=== PATIENT | female | born 1975 | race Caucasian/White ===

== ENCOUNTER 2018-02-24 00:25 | Outpatient (CLI) | payer MEDICAID, SELFPAY ==
--- NOTE | 2018-02-24 15:48 | DI.MAMMO_ITS ---
SYMPTOM/DIAGNOSIS: SCREENING, Z12.31 MAMMOGRAMS: Mammograms were interpreted according to the usual protocol including computer analysis with CAD system, tomosynthesis and C view imaging. Comparison is made with prior examinations. Breast density, Category B. No masses or microcalcifications are seen. There is nothing to suggest malignancy. IMPRESSION: Negative mammogram. Routine screening is recommended. Category 1. MQSA ASSESSMENT OF FINDINGS: Negative. Category 1. Patient will receive a letter notifying them of these results. BI-RADS category B. There are scattered areas of fibroglandular density.
== END 2018-02-24 00:45 ==
PROVIDERS: PCP Nurse Practitioner; Visit Provider Nurse Practitioner Family
DX: Z12.31 Encounter for screening mammogram for malignant neoplasm of breast (principal)
CPT/HCPCS: 77063; 77067

== ENCOUNTER 2018-11-01 10:28 | Outpatient (CLI) | payer MEDICAID, SELFPAY ==
[2018-11-01 11:47] LABS: Cholesterol 243 mg/dL (50-200); Glucose 83 mg/dL (70-100); HDL Cholesterol 39 mg/dL (40-60); LDL CHOLESTEROL 159 mg/dL (<100); Triglyceride 177 mg/dL (30-150)
== END 2018-11-01 10:48 ==
PROVIDERS: PCP Nurse Practitioner; Visit Provider Nurse Practitioner Family
DX: Z13.220 Encounter for screening for lipoid disorders (principal); Z13.1 Encounter for screening for diabetes mellitus
CPT/HCPCS: 36415; 80061; 82947; 83721

== ENCOUNTER 2019-01-04 14:22 | Emergency (ER) | payer MEDICAID, SELFPAY ==
[2019-01-04 14:23] VITALS: BP 110/73; PULSE 95; RESP 16; TEMP 37; O2SAT 94
--- NOTE | 2019-01-04 14:31 | DI.RAD_ITS ---
SYMPTOM/DIAGNOSIS: FALL, PAIN POSTERIOR RIGHT ELBOW: Three views. No acute fracture or dislocation is present.
--- NOTE | 2019-01-04 14:31 | ED.GENADUL_ITS ---
Discharge Plan Disposition Patient Disposition: HOME Discharge Details Chief Complaint: Orthopedic Clinical Impression: Contusion of elbow, right, Contusion of knee, left, Left ankle sprain, Abrasion of hand, right, Abrasion of elbow, right, Neck pain, Pericardial effusion, Hypokalemia Primary Care Provider: Laura Hidalgo ED Provider: Cruziot Vela Home Meds and New Rx's Prescriptions: Continued raloxifene [Evista] 60 mg tablet 60 mg PO DAILY Qty: 90 RF: 3 ranitidine HCl 150 mg tablet 150 mg PO BID Qty: 180 RF: 3 baclofen 10 MG tablet 10 mg PO TID RF: 0 topiramate 25 MG tablet 25 mg PO BID RF: 0 albuterol sulfate 2.5 MG/3 ML solution for nebulization 2.5 mg Inhalation PRN PRNRF: 0 meloxicam 7.5 MG tablet 7.5 mg PO DAILY Qty: 30 RF: 11 naproxen sodium [Anaprox DS] 550 MG tablet 550 mg PO BID PRNQty: 30 RF: 11 albuterol sulfate [ProAir HFA] 8.5 GM HFA aerosol inhaler 2 puff Inhalation DAILY Qty: 1 RF: 5 aspirin 325 MG tablet 325 mg PO DAILY RF: 0 cyanocobalamin (vitamin B-12) 1,000 MCG tablet 1,000 mcg PO DAILY RF: 0 hydroxyzine HCl 25 MG tablet 25 - 50 mg PO Q4H PRN PRNQty: 30 RF: 0 naproxen [Naprosyn] 500 MG tablet 500 mg PO BID PRNRF: 0 omeprazole 40 MG capsule,delayed release(DR/EC) 40 mg PO DAILY Qty: 90 RF: 3 valacyclovir [Valtrex] 500 mg tablet 500 mg PO DAILY Qty: 90 RF: 2 atorvastatin 20 mg tablet 20 mg PO QPM Qty: 90 RF: 3 amitriptyline 50 MG tablet 50 mg PO HS RF: 0 calcium carbonate 500 MG tablet,chewable 500 mg CH DAILY RF: 0 multivitamin [Daily Multi-Vitamin] 1 EACH tablet 1 ea PO DAILY RF: 0 Discharge Instructions Instructions: Ankle Sprain (ED), Hypokalemia (ED), Pericardial Effusion (ED), Contusion in Adults (ED), Soft Cervical Collar (ED), Abrasion (ED) Additional Instructions: Please follow-up with your primary care physician. Be sure to discuss final interpretations of radiologic images with your primary care physician. There were incidental findings noted on your imaging including pericardial effusion that should be followed up. Additional diagnostic testing may be necessary. There was no cervical fracture noted on the CT of your neck. However, midline cervical tenderness was noted on exam. Please continue to wear soft cervical collar and avoid rotating or bending your neck or any activities that worsen pain. Follow-up with your doctor next week. If pain persists, you may need additional diagnostic testing. Use Shon wrap for your knee injury and lace up ankle stabilizer for your ankle sprain over the next 1 to 2 weeks. If pain persist in these areas or in your elbow, please discuss with your primary care physician as additional diagnostic testing may be necessary. Please take your naproxen as prescribed. Please take acetaminophen (tylenol) - 650mg every 6 hours by mouth as needed for pain. Return to the emergency department for any worsening or new concerning symptoms. Referrals: Laura Hidalgo NP [Primary Care Provider] - Discharge Data Discharge Date/Time-TO BE ENTERED AT DEPARTURE: 01/04/19 17:59 Medical Decision Making <NAYE Schofield - Last Filed: 01/08/19 07:58> Patient is a 43-year-old female presenting today with chief complaint of trauma during fall. Patient is brought in via EMS. Reports that she fell and landed primarily on the right elbow. Believes that she struck the back of her head. She does not remember the fall, unknown if she lost consciousness. EMS evaluated the patient, at that time, she is only endorsing pain to the right elbow. Did not have any neck pain. However, on my exam the patient was endorsing pain that radiated from the back of her head down the cervical spine. No step-off palpable. A collar was immediately applied. Patient was not moving the neck well prior to my exam. She is also endorsing pain with palpation about the chest. Lungs sounds are clear, normal neurovascular exam. Abdomen is benign although patient continues to wince throughout much of my exam. Primary source of pain is the right elbow. She has notable swelling, ecchymosis and a small abrasion to the olecranon and proximal forearm. She also endorsing severe pain in the right hand although no deformity is noted. Pain is primarily on the dorsal aspect of the hand. Vascular exam is intact. No evidence of trauma to the left upper extremity. Patient is also endorsing pain to the left knee and left ankle. She has a brace in the left ankle. Reports that secondary to her cerebral palsy, she does not have movement in the left lower extremity. States that typically she drags to the left leg with ambulation. No evidence of trauma to the knee. Secondary to the patient's discomfort, unable to range the knee or ankle. Given the patient's level of discomfort, feel that imaging is appropriate. We will obtain his scans of the head, neck, chest, abdomen, pelvis. Will accept x-ray the patient's right elbow, hand and left knee, ankle. Patient reports that she used to abuse narcotics, is requesting that we stay with narcotic medication at this time. Will give Tylenol. I am hoping that after the Tylenol, will be able to examine her further as she is in too much discomfort to the lobe. Patient also endorsing nausea, will give Zofran to help with this. Trauma labs were obtained, significant for elevated liver enzymes which is not unusual for the patient. Her potassium is slightly low at 3.4. We will hold off on p.o. supplementation at this time given the nausea, once this corrected, will replace orally. At the end of my shift, imaging is still pending. Care transition to Dr. Vela with final disposition, reevaluation and imaging pending. <Cruzito Vela MD - Last Filed: 01/05/19 22:09> 16:00 -- Care signed out by NAYE Powell with plan to follow-up on diagnostic i maging and reassess the patient for disposition. Please see NAYE Powell's documentation regarding initial ED presentation and course. Patient noted to have normal screening labs. 17:55 --labs were reviewed and elevated LFTs noted, this appears to be a chronic issue. Hypokalemia, mild, noted. Patient given K-Dur 20 milliequivalents. X-ray of the left ankle was reviewed and interpreted by radiology: Mild soft tissue swelling. Normal bones and joints. No acute fracture. X-ray of the right hand was reviewed and interpreted by radiology: No acute findings. X-ray of the right elbow was reviewed and interpreted by radiology: No acute findings. CT of the head was reviewed and interpreted by radiology: No acute intracranial injury. There is a 3 cm area of encephalomalacia in the posterior right parietal lobe anomaly that is unchanged since 10/18/2017 consistent with old infarct or traumatic injury. CT of the cervical spine interpreted by radiology: No acute findings. CT of the chest reviewed and interpreted by radiology: Small pericardial effusion measuring up to 11 mm in thickness. Mild reversible airspace disease most likely scattered areas of atelectasis. CT of the abdomen and pelvis interpreted by radiology: No acute abnormality. Attempted to clear cervical spine. Patient noted to have midline cervical tenderness. A soft cervical collar was applied. Plan for continued anti- inflammatory over the next few days and follow-up next week. If pain persists, patient may need additional diagnostic imaging of her cervical spine. All diagnostic results were discussed with the patient and her family. I specifically reviewed incidental findings noted including small pericardial effusion and lab abnormalities. Questions were addressed. Patient understands importance of timely outpatient follow-up and that additional diagnostic testing may be necessary. Disposition decision was made weighing the risks and benefits of hospitalization versus outpatient treatment, the risk for further decompensation, and the patient's wishes. The patient was stable and requested discharge. Prior to discharge, my usual and customary return precautions were reviewed with the patient - this included follow-up instructions and reason to return to the emergency department if condition worsens, does not improve as expected, or other new concerns arise. HPI <NAYE Schofield - Last Filed: 01/08/19 07:58> General Mode of arrival: EMS . Date/Time Provider Initiated Documentation: 01/04/19 14:31 . Limitations to Documentation: no limitations . Information obtained by: patient, EMS and RN notes reviewed . History of Present Illness Quality is described as dull, HPI Narrative: Patient is a 43-year-old female, brought in via EMS, with chief complaint of fall. She reports she was a child but since she tripped over a display in [employer] and fell. States the primary pain is in the posterior aspect of the right elbow. Patient is right-hand dominant. Pain radiates into the right hand. Pain with palpation of this area as well. Patient is also endorsing pain in the left knee. States that she struck the back of her head. She is unsure if she lost consciousness, unclear if she hit the back of her head. She initially denied any neck pain or pain endorsed to EMS. However, on arrival, she is endorsing severe neck pain as well as chest pain. She denies any shortness of breath, no recent fevers or chills. Patient does have a history of cerebral palsy and reports that she does not fall frequently. She reports that the left leg is largely immobile and that she typically tracks this leg behind her. Patient reports that she is recovering addict and prefers to stay away from narcotic medications for this reason. Currently endorsing nausea. Related Data Home Medications Medication Instructions Recorded Confirmed baclofen 10 mg PO TID tab-cap 01/29/13 01/04/19 amitriptyline 50 mg PO HS 02/13/13 01/04/19 calcium carbonate 500 mg CH DAILY 02/13/13 01/04/19 multivitamin [Daily Multi-Vitamin] 1 ea PO DAILY 02/13/13 01/04/19 topiramate 25 mg PO BID 08/15/14 01/04/19 albuterol sulfate 2.5 mg INHALATION PRN PRN 04/10/15 01/04/19 meloxicam 7.5 mg PO DAILY #30 tab-cap 07/29/15 01/04/19 albuterol sulfate [ProAir HFA] 2 puff INHALATION DAILY #1 inhaler 02/21/17 01/04/19 aspirin 325 mg PO DAILY tab-cap 02/21/17 01/04/19 cyanocobalamin (vitamin B-12) 1,000 mcg PO DAILY 02/21/17 01/04/19 naproxen sodium [Anaprox DS] 550 mg PO BID PRN #30 tab-cap 02/21/17 01/04/19 hydroxyzine HCl 25 - 50 mg PO Q4H PRN PRN #30 tab 10/27/17 01/04/19 naproxen [Naprosyn] 500 mg PO BID PRN tab-cap 11/08/17 01/04/19 omeprazole 40 mg PO DAILY #90 capsule. 12/05/17 01/04/19 valacyclovir 500 mg tablet 500 mg PO DAILY #90 tab-cap 09/15/18 01/04/19 raloxifene 60 mg tablet 60 mg PO DAILY #90 tab-cap 10/31/18 01/04/19 ranitidine HCl 150 mg tablet 150 mg PO BID #180 tab-cap 10/31/18 01/04/19 atorvastatin 20 mg tablet 20 mg PO QPM #90 tab 11/06/18 01/04/19 Previous Rx's Medication Instructions Recorded omeprazole 40 mg PO DAILY #90 capsule. 12/05/17 valacyclovir 500 mg tablet 500 mg PO DAILY #90 tab-cap 09/15/18 raloxifene 60 mg tablet 60 mg PO DAILY #90 tab-cap 10/31/18 ranitidine HCl 150 mg tablet 150 mg PO BID #180 tab-cap 10/31/18 atorvastatin 20 mg tablet 20 mg PO QPM #90 tab 11/06/18 Allergies Allergy/AdvReac Type Severity Reaction Status Date / Time fluconazole Allergy Severe SEIZURE Verified 01/04/19 14:32 Sulfa (Sulfonamide Allergy Severe SEIZURE Unverified 01/04/19 14:32 Antibiotics) trimethoprim Allergy Intermediate UNKNOWN Unverified 01/04/19 14:32 <Cruzito Vela MD - Last Filed: 01/05/19 22:09> General Information obtained by: patient . Review of Systems <NAYE Schofield - Last Filed: 01/08/19 07:58> Constitutional Reports as per HPI, Denies chills, Denies fatigue, Denies fever(s), Reports headache(s) (reports pain in back of head) and Reports weakness (chronic LLE weakness, associates with CP) Eyes Reports as per HPI, Denies blurry vision, Reports change in vision (chronic, unchanged from fall today) and Denies loss of vision ENT Denies abnormal hearing, Reports headache(s) (reports pain in back of head) and Reports neck pain Cardiovascular Reports as per HPI, Denies chest pain and Denies dyspnea Respiratory Reports as per HPI, Denies cough, Denies pain on inspiration, Denies pain with cough and Denies dyspnea Gastrointestinal Reports as per HPI, Denies abdominal pain, Reports nausea and Denies vomiting Genitourinary Reports as per HPI and Denies urinary incontinence Musculoskeletal Reports as per HPI, Reports abnormal gait (has not ambulated since fall today), Reports deformity (EMS reports deformity to right elbow), Reports limited range of motion (unable to range right elbow at this time), Denies muscle weakness, Reports neck pain, Reports numbness (chronic in left extremities) and Denies radiating pain into limb Integumentary/Breasts Reports as per HPI and Denies rash Neurologic Reports as per HPI, Denies abnormal hearing, Denies abnormal movements, Denies abnormal speech, Reports abnormal gait (has not ambulated since fall today), Reports headache(s) (reports pain in back of head), Denies lack of coordination, Denies focal weakness, Denies loss of vision, Reports numbness (chronic in left extremities), Denies seizure-like activity, Denies paresthesias and Reports weakness (chronic LLE weakness, associates with CP) Endocrine Denies fatigue PFSH <NAYE Schofield - Last Filed: 01/08/19 07:58> Medical History Congenital stroke Depression Endometriosis Gallstones GERD (gastroesophageal reflux disease) Heart burn Hemianopsia Hemiparesis History of alcohol abuse HSV infection Hx of drug abuse Hx of renal calculi Migraine Obstructive sleep apnea on CPAP (Acute) Retinal detachment, left Sleep-related bruxism (Acute) Urinary incontinence Surgical History Cholecystectomy (06/05/17) EGD - MAC (04/18/17) Laparotomy (06/11/17) left hand tendon surgery Oophrectomy, Both renal stent Trigger Finger release (05/13/15) Vaginal hysterectomy Family History Mother Breast cancer COPD (chronic obstructive pulmonary disease) Thyroid disorder Father Heart disease Grandmother Breast cancer Maternal Aunt Breast cancer Social History Smoking/Tobacco Use Status: Never Alcohol Intake: former Drug use: Current Sobriety Substance use type: does not use Caregiver/Support person: No Number of Children: 3 Communication Needs: None Education Level: high school current occupation: Disability Pets and animals: Yes Pets and animals: cat(s) Current gender identity: female What type of physical activity do you participate in: resistance training Frequency: 1-2 times per week Seatbelt use: always Water heater temp set <120 deg: Yes Working smoke detector in home: Yes Fire extinguisher in home: Yes Carbon monox detector in home: Yes Firearms in home: No Do you feel safe at home: Yes Do you feel safe in your relationship?: Yes History History Para 3 Hx # Term Pregnancies Multiple births Hx # Pregnancies Ectopic pregnancies AB induced Hx Number of Living Children AB spontaneous Exam <Tasha Piburn, PA - Last Filed: 01/08/19 07:58> Const General: cooperative, healthy appearing, uncomfortable (patient appears uncomfortable, particularly iwth movement), no acute distress, well developed, well groomed and anxious Nutritional Appearance: well nourished and overweight Orientation: alert, awake and oriented x3 HENMT Head: normal to inspection, no palpable skull fracture, normocephalic and atraumatic Ears: hearing grossly normal bilaterally, external ears normal and TM's normal bilaterally General nose exam: external nose normal Mouth: oral mucosae normal, lip normal and tongue normal Throat: posterior oropharynx normal Eyes General: appearance normal, both eyes and all related structures Visual Wiggins: normal visual wiggins by confrontation Alignment and Position: alignment normal Periorbital: periorbital findings normal Eyelids: eyelids normal Conjunctivae: conjunctivae normal Pupils: PERRL EOM: EOM intact bilaterally Neck Neck: normal visual inspection, full ROM, no lymphadenopathy, no meningeal signs, trachea midline and supple Chest Chest: normal inspection of the chest, no crepitus, no localized rib tenderness and tenderness (with AP compression) Resp Effort & Inspection: normal respiratory effort, able to speak in complete sentences and no respiratory distress Auscultation: clear to auscultation bilaterally, no rales, no rhonchi and no wheezes Cardio Rate: regular rate Rhythm: regular rhythm Heart Sounds: S1 normal and S2 normal GI Inspection: normal to inspection, no abdominal wall ecchymosis, no edema, non- distended and obesity Palpation: soft, no hepatosplenomegaly, not firm, no guarding, no pulsatile masses, not rigid and nontender Auscultation: normal bowel sounds Back/Spine/Pelvis Back: no CVA tenderness Cervical Spine: normal cervical lordosis, cervical ROM normal, collar present (collar applied immediately after this exam as noted to have pain), No cervical spasm, cervical spinal tenderness (Patient has pain with palpation over back of head and into c-spine) and No step off deformity Thoracic/Lumbar Spine: thoracic and lumbar spine normal to inspection, thoraco- lumbar ROM normal, No thoraco-lumbar ROM limited, No thoraco-lumbar spasm and No thoracic spinal tenderness Pelvis: no pain with anterior-posterior compression and no pain with lateral compression Skin Trauma: abrasion (abrasion, swelling and ecchymosis to posterior elbow) Neuro General: alert, awake, oriented x3, gait normal, tone normal and moves all extremities Cranial Nerves: CN's II-XI intact bilaterally Cognition: normal cognition Speech: speech normal Gait: normal gait Motor: tone not normal throughout (patient will not move RUE, left sided weakness which reported chronic) Sensory Exam: sensory deficits noted (chronic sensory deficit noted in left extremities) Extrem General: normal capillary refill, no pedal edema, no calf tenderness and abnormal gait (has not ambulated since fall) Right upper extremity: normal capillary refill, shoulder/upper arm Details: normal to inspection (no pain with plapation), elbow/forearm Details: abnormal to inspection (not willing to range), tenderness (severe pain with any palpation) Location: of the olecranon and of the mid-shaft forearm, swelling (abrasion, ecchymosis ) Location: of the olecranon and of the proximal forearm, abnormal ROM Details: held in an abnormal fashion Details: in flexion (90), abrasion, ecchymosis and distal pulses intact; no unusual warmth, no lacerations, no crepitus, no penetrating wound and no deformity, wrist Details: normal to inspection; no tenderness, no swelling, ROM abnormal (patient will not range, increases pain in elbow) and no unusual warmth and hand Details: normal to inspection, normal capillary refill, neurosensory exam normal and tenderness Location: of the dorsal hand (diffuse discomfort); neuromotor exam abnormal (patient will not move fingers, does small movements but increases pain in elbow), no unusual warmth, no swelling, no abrasions, no lacerations and no crepitus; ROM limited (will not ROM right elbow) Left lower extremity: abnormal to inspection (tenderness to left knee, will not range, brace on left ankle) Psych Appearance: grossly normal and well kempt Mental Status: mental status grossly normal Speech and Movement: speech and movement normal Sign Out <NAYE Schofield - Last Filed: 01/08/19 07:58> Sign Out Data: Sign Out Comment: Care transitioned to Dr. Vela with imaging, reevaluation and disposition pending. Last updated by Tasha Mayer PA at 01/04/19 16:14
--- NOTE | 2019-01-04 14:31 | DI.RAD_ITS ---
SYMPTOM/DIAGNOSIS: FALL LEFT KNEE: Four views. No acute fracture or dislocation is present.
--- NOTE | 2019-01-04 14:31 | DI.RAD_ITS ---
SYMPTOM/DIAGNOSIS: MIGUELINAOSH RIGHT HAND: Three views. No acute fracture or dislocation is present.
--- NOTE | 2019-01-04 14:31 | DI.CT_ITS ---
SYMPTOM/DIAGNOSIS: TRAUMA, PAIN IN CHEST CT CHEST, ABDOMEN AND PELVIS: CT scan of the chest, abdomen and pelvis was performed following intravenous contrast material. There are no priors for comparison. CT ABDOMEN AND PELVIS: There is patient motion artifact which does degrade the image quality There is decreased attenuation of the liver suggesting fatty infiltration. No hepatic mass or laceration is identified. The patient is status post cholecystectomy. There is no biliary ductal dilatation. The portal, superior mesenteric and splenic veins are patent. The pancreas, spleen, adrenal glands, kidneys, ureters and bladder are all unremarkable. The patient appears to be status post hysterectomy. The bowel is unremarkable. The aorta is unremarkable. No significant abdominal or pelvic adenopathy, ascites or pneumoperitoneum is seen. No fracture is identified. IMPRESSION: No acute abdominal or pelvic process. CT CHEST: There is artifact from the patient's right arm positioning and patient motion artifact. Incidental note is made of an aberrant right subclavian artery. The thoracic aorta is intact. Heart size is within normal limits. There is a small pericardial effusion or pleural thickening, measuring 11 mm in maximal thickness. No significant thoracic adenopathy, pleural effusion or pneumothorax is identified. No focal consolidating infiltrates are seen. No fracture is identified. Atelectatic changes are seen in the lungs. IMPRESSION: 1. Small pericardial effusion or pleural thickening 2. No other acute pulmonary process.
--- NOTE | 2019-01-04 14:31 | DI.CT_ITS ---
SYMPTOMS/DIAGNOSIS: TRAUMA, PAIN IN CHEST PRIMARILY CRANIAL CT: A noncontrast enhanced examination was performed. When compared with the previous examination, again noted is a right posterior parietal area of porencephaly. There is no evidence of an intra/extra-axial hemorrhage. There are findings consistent with small vessel disease. The ventricles are normal. There is no evidence of a skull fracture. The paranasal sinuses are intact. There is no mastoid effusion. C-SPINE CT: The vertebral bodies are intact. The disc spaces are well maintained. The posterior elements are unremarkable. The neural canal and neural foramen as visualized appear intact. The odontoid is unremarkable and is closely applied to the anterior arch of C1. The prevertebral soft tissues are unremarkable. SUMMARY: No evidence of a C-spine fracture or subluxation.
[2019-01-04] MEDS: Acetaminophen 500 MG TAB 1000 MG PO (14:38)
[2019-01-04] MEDS: Normal Saline 1,000 ML 1000 ML IV (14:55)
[2019-01-04] MEDS: Ondansetron 4 MG/2 ML VIAL IVP (14:59)
--- NOTE | 2019-01-04 15:08 | DI.RAD_ITS ---
SYMPTOM/DIAGNOSIS: FALL LEFT ANKLE: Three views. No acute fracture or dislocation is seen. There is soft tissue swelling about the ankle. IMPRESSION: Soft tissue swelling about the left ankle.
[2019-01-04 15:11] LABS: Abs Immature Grans 0.01 k/cumm (0.0-0.09); Absolute Basophil Count 0.03 k/cumm (0.0-0.2); Absolute Eosinophil Count 0.14 k/cumm (0.0-0.7); Absolute Lymphocyte Count 2.45 k/cumm (1.2-3.4); Absolute Monocyte Count 0.46 k/cumm (0.11-0.7); Absolute Neutrophil Count 3.69 k/cumm (1.2-6.7); Basophils % 0.4; Eosinophils % 2.1; HCT 40.8 % (36.0-46.0); HGB 14.3 g/dL (12.0-15.5); Immature Grans % 0.1; Lymphocytes % 36.1; Mean Corpuscular Volume 88.5 fL (80-95); Monocytes % 6.8; Neutrophils % 54.5; Platelet Count 205 x1000/uL (130-400); RBC 4.61 m/cumm (4.00-5.20); RBC Distribution Width 12.5 % (11.7-14.6); White Blood Cell Count 6.78 k/cumm (4.4-10.8)
[2019-01-04 15:26] LABS: PTT Activated 21.2 sec (21.0-31.4); Prothrombin Time 10.4 sec (9.3-11.0)
[2019-01-04 15:28] LABS: ALT 109 U/L (12-78); AST 57 U/L (15-37); Albumin 3.6 g/dL (3.4-5.0); Alkaline Phosphatase 136 U/L (46-116); Anion Gap 11.6 mmol/L (3-11); BUN 17 mg/dL (7-18); Bilirubin, Total 0.4 mg/dL (0.2-1.0); CO2 22.4 mmol/L (21.0-32.0); CREATININE 1.02 mg/dL (0.55-1.02); Calcium 9.1 mg/dL (8.5-10.1); Chloride 110 mmol/L (98-107); Estimated GFR 58.87 (mL/min/1.73m2); Glucose 129 mg/dL (70-100); Potassium 3.4 mmol/L (3.5-5.1); Sodium 144 mmol/L (136-145); Total Protein 7.2 g/dL (6.4-8.2)
[2019-01-04] MEDS: Omnipaque 350 MG/ML 100 ML BTL IJ (15:36)
[2019-01-04] MEDS: Normal Saline Flush 10 ML SYR IVP (15:37)
--- NOTE | 2019-01-04 16:20 | DI.VRAD_ITS ---
EXAM: CT Chest With Contrast EXAM DATE/TIME: 01/04/2019 3:49 PM CLINICAL HISTORY: 43 years old, female; Chest pain; Type not specified; Patient HX: Trauma, fall TECHNIQUE: Imaging protocol: Axial computed tomography images of the chest with intravenous contrast. Coronal and sagittal reformatted images were created and reviewed. COMPARISON: No relevant prior studies available. FINDINGS: Lungs: Last opacity in the bases. There is no focal consolidation. Pleural space: Unremarkable. No pneumothorax. No pleural effusion. Heart: A heart is normal for volume. However there is a small pericardial effusion measuring up to 11 mm in thickness. Aorta: Unremarkable. No aortic aneurysm. Lymph nodes: Unremarkable. No enlarged lymph nodes. Bones/joints: Unremarkable. No acute fracture. Soft tissues: Unremarkable. IMPRESSION: 1. Small pericardial effusion. 2. Mild reversible airspace disease most likely scattered areas of atelectasis. EXAM: CT Abdomen and Pelvis With Contrast EXAM DATE/TIME: 01/04/2019 3:49 PM CLINICAL HISTORY: 43 years old, female; Chest pain; Type not specified; Patient HX: Trauma, fall TECHNIQUE: Imaging protocol: Axial computed tomography images of the abdomen and pelvis with intravenous contrast. Coronal and sagittal reformatted images were created and reviewed. COMPARISON: No relevant prior studies available. FINDINGS: Liver: Normal. No mass. Gallbladder and bile ducts: Cholecystectomy. Pancreas: Normal. No ductal dilation. Spleen: Normal. No splenomegaly. Adrenals: Normal. No mass. Kidneys and ureters: Normal. No hydronephrosis. Stomach and bowel: Normal. No obstruction. No mucosal thickening. Appendix: No evidence of appendicitis. Intraperitoneal space: Normal. No free air. No significant fluid collection. Vasculature: Normal. No abdominal aortic aneurysm. Lymph nodes: Normal. No enlarged lymph nodes. Bladder: Unremarkable as visualized. Reproductive: Uterus is been removed. Bones/joints: No acute fracture. No dislocation. Soft tissues: Unremarkable. IMPRESSION: No acute abnormality. Dictated and Authenticated by: Stewart Sprague MD. Ordering:ARABELLA Cordova MD
--- NOTE | 2019-01-04 16:22 | DI.VRAD_ITS ---
EXAM: XR Left Knee EXAM DATE/TIME: 01/04/2019 2:34 PM CLINICAL HISTORY: 43 years old, female; Other: Fall TECHNIQUE: Imaging protocol: XR Left knee. Views: 4 or more views. COMPARISON: No relevant prior studies available. FINDINGS: Bones/joints: Normal. Soft tissues: At most there is a minimal joint effusion.. IMPRESSION: Possible minimal joint effusion Dictated and Authenticated by: Stewart Sprague MD. Ordering:ARABELLA Cordova MD
--- NOTE | 2019-01-04 16:34 | DI.VRAD_ITS ---
EXAM: XR Right Elbow EXAM DATE/TIME: 01/04/2019 2:34 PM CLINICAL HISTORY: 43 years old, female; Other: Fall, pain posterior TECHNIQUE: Imaging protocol: XR Right elbow. Views: 3 or more views. COMPARISON: No relevant prior studies available. FINDINGS: Bones/joints: Normal. Soft tissues: Normal. IMPRESSION: No acute findings. Dictated and Authenticated by: Stewart Sprauge MD. Ordering:ARABELLA Cordova MD
--- NOTE | 2019-01-04 16:34 | DI.VRAD_ITS ---
EXAM: CT Head Without Contrast EXAM DATE/TIME: 01/04/2019 3:42 PM CLINICAL HISTORY: 43 years old, female; Injury or trauma; Initial encounter; Blunt trauma (contusions or hematomas); Patient HX: Trauma, fall TECHNIQUE: Imaging protocol: Computed tomography images of the head without contrast. Coronal and sagittal reformatted images were created and reviewed. COMPARISON: CT HEAD WITHOUT CONTRAST 10/18/2017 3:41 PM FINDINGS: Brain: Cranial is no hemorrhage, mass effect or extra-axial fluid collections. 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 Otherwise the cerebral white matter is within normal limits. Ventricles: The ventricles with her limits. Bones/joints: Unremarkable. No acute fracture. Sinuses: Visualized sinuses are unremarkable. No fluid levels. Mastoid air cells: Visualized mastoid air cells are well aerated. No mastoid effusion. Orbits: Again noted is a left scleral buckle. Soft tissues: Unremarkable. IMPRESSION: No acute intracranial injury. EXAM: CT Cervical Spine Without Contrast EXAM DATE/TIME: 01/04/2019 3:42 PM CLINICAL HISTORY: 43 years old, female; Injury or trauma; Initial encounter; Blunt trauma (contusions or hematomas); Patient HX: Trauma, fall TECHNIQUE: Imaging protocol: Computed tomography images of the cervical spine without contrast. Coronal and sagittal reformatted images were created and reviewed. COMPARISON: CT HEAD WITHOUT CONTRAST 10/18/2017 3:41 PM FINDINGS: Vertebrae: No acute fracture. Normal alignment. Disc spaces are well-preserved. There is no significant osseous stenosis. Soft tissues: Unremarkable. Lungs: Lung apices are normal. IMPRESSION: No acute findings. Dictated and Authenticated by: Stewart Sprague MD. Ordering:ARABELLA Cordova MD
--- NOTE | 2019-01-04 16:35 | DI.VRAD_ITS ---
EXAM: XR Right Hand EXAM DATE/TIME: 01/04/2019 2:34 PM CLINICAL HISTORY: 43 years old, female; Other: Foosh TECHNIQUE: Imaging protocol: XR Right hand. Views: 3 or more views. COMPARISON: No relevant prior studies available. FINDINGS: Bones/joints: Normal. Soft tissues: Normal. IMPRESSION: No acute findings. Dictated and Authenticated by: Stewart Sprague MD. Ordering:ARABELLA Cordova MD
--- NOTE | 2019-01-04 16:36 | DI.VRAD_ITS ---
EXAM: XR Left Ankle EXAM DATE/TIME: 01/04/2019 3:08 PM CLINICAL HISTORY: 43 years old, female; Other: Fall TECHNIQUE: Imaging protocol: XR Left ankle. Views: 3 or more views. COMPARISON: No relevant prior studies available. FINDINGS: Bones/joints: Normal. Soft tissues: There is mild diffuse swelling at the ankle but no acute fracture dislocation or radiopaque foreign body nor gas in the soft tissue IMPRESSION: Mild soft tissue swelling Dictated and Authenticated by: Stewart Sprague MD. Ordering:ARABELLA Cordova MD
[2019-01-04] MEDS: Potassium Chloride 10 MEQ TABCR 20 MEQ PO (17:44)
[2019-01-04 18:00] VITALS: BP 116/68; PULSE 88; RESP 18; O2SAT 94
== END 2019-01-04 17:59 | disposition home or self-care (01) ==
PROVIDERS: Physician Assistant; Emergency Provider Student in an Organized Health Care Education/Training Program; PCP Nurse Practitioner
DX: S93.422A Sprain of deltoid ligament of left ankle, initial encounter (principal); S60.511A Abrasion of right hand, initial encounter; S50.311A Abrasion of right elbow, initial encounter; S50.01XA Contusion of right elbow, initial encounter; S80.02XA Contusion of left knee, initial encounter; I31.3 Pericardial effusion (noninflammatory); W01.0XXA Fall on same level from slipping, tripping and stumbling without subsequent striking against object, initial encounter; M54.2 Cervicalgia
CPT/HCPCS: 29125; 74177; 80053; 96361; 96374; 99285; 70450; 71260; 72125; 73080; 73130; 73564; 73610; 83735; 85025; 85610; 85730; J2405; J3490; L0120; L0172; L1902

== ENCOUNTER 2019-01-23 00:58 | Outpatient (CLI) | payer MEDICAID, SELFPAY ==
--- NOTE | 2019-01-23 10:30 | MERGE_ITS ---
*[facility]* *[facility]* [address] [place] [address] Date of study: 01/23/2019 Transthoracic Echocardiography M-mode, complete 2D, complete spectral Doppler, and color Doppler *STUDY CONCLUSIONS* Summary: 1. Pericardium, extracardiac: A trivial, pericardial effusion was identified posterior to the heart. There was no evidence of hemodynamic compromise. 2. Left ventricle: The cavity size was normal. Wall thickness was normal. Systolic function was normal. The estimated ejection fraction was 60-65%. Wall motion was normal; there were no regional wall motion abnormalities. 3. Right ventricle: The cavity size was normal. Wall thickness was normal. Systolic function was normal. 4. Inferior vena cava: The vessel was patent and normal in size. The respirophasic diameter changes were in the normal range (greater than or equal to 50%). *PATIENT PRESENTATION* Height: 147.3cm (58in ) S/D Pressure: 112 / 65 Weight: 94.3kg (207.6lb ) BSA: 2.03m^2 Test start time: 10:40 AM. Test stop time: 11:30 AM. PERFORMING Unknown PERFORMING [facility] VICE PRESIDENT LENDING RT Ofelia Martinez)(CT), [facility] CONSULTING Laura Hidalgo ORDERING Laura Hidalgo REFERRING Laura Hidalgo *PROCEDURE DATA* Procedure information: The patient was identified by two identifiers. This study was interpreted by [facility]. Pertinent images and digital data are archived for permanent storage and are available for subsequent review. No prior study was available for comparison. Study status: Routine. Transthoracic echocardiography. M-mode, complete 2D, complete spectral Doppler, and color Doppler. A Transthoracic Echocardiogram was performed. Scanning was performed from the parasternal, apical, subcostal, and suprasternal notch acoustic windows. Images were obtained using an [id number] cardiac ultrasound machine. Image quality was adequate. Study completion: The patient tolerated the procedure well. There were no complications. History: PMH: Small pericardial effusion seen on CT i31.1. *CARDIAC ANATOMY* Left ventricle: The cavity size was normal. Wall thickness was normal. Systolic function was normal. The estimated ejection fraction was 60-65%. Wall motion was normal; there were no regional wall motion abnormalities. Diastolic parameters were normal. Aortic valve: Trileaflet; normal thickness leaflets. Mobility was not restricted. Doppler: Transvalvular velocity was within the normal range. There was no stenosis. There was no significant regurgitation. VTI ratio of LVOT to aortic valve: 0.75. Valve area (VTI): 2.1cm^2. Indexed valve area (VTI): 1cm^2/m^2. Peak velocity ratio of LVOT to aortic valve: 0.8. Valve area (Vmax): 2.3cm^2. Indexed valve area (Vmax): 1.1cm^2/m^2. Mean velocity ratio of LVOT to aortic valve: 0.77. Valve area (Vmean): 2.2cm^2. Indexed valve area (Vmean): 1.1cm^2/m^2. Mean gradient (S): 3.3mm Hg. Peak gradient (S): 5.1mm Hg. Aorta: Aortic root: The aortic root was normal in size. Ascending aorta: The ascending aorta was normal in size. Mitral valve: Structurally normal valve. Mobility was not restricted. Doppler: Transvalvular velocity was within the normal range. There was no evidence for stenosis. There was no significant regurgitation. Valve area by pressure half-time: 3.6cm^2. Indexed valve area by pressure half-time: 1.8cm^2/m^2. Peak gradient (D): 3.3mm Hg. Left atrium: The atrium was normal in size. Right ventricle: The cavity size was normal. Wall thickness was normal. Systolic function was normal. Pulmonic valve: Structurally normal valve. Doppler: Transvalvular velocity was within the normal range. There was no evidence for stenosis. There was no significant regurgitation. Peak gradient (S): 2.3mm Hg. Tricuspid valve: Structurally normal valve. Doppler: Transvalvular velocity was within the normal range. There was no evidence for stenosis. There was no significant regurgitation. Pulmonary artery: Pulmonary systolic pressure was within the normal range. Right atrium: The atrium was normal in size. Pericardium: A trivial, pericardial effusion was identified posterior to the heart. There was no evidence of hemodynamic compromise. Systemic veins: Inferior vena cava: Well visualized. The vessel was patent and normal in size. The respirophasic diameter changes were in the normal range (greater than or equal to 50%). Baseline ECG: Normal sinus rhythm. Measurements Left ventricle Value Reference LV ID, ED, PLAX 3.8 cm 3.5 - 6.0 LV ID, ES, PLAX 2.5 cm 2.1 - 4.0 LV PW thickness, ED, PLAX 0.9 cm LV end-diastolic volume, 1-p A2C 71 ml LV ejection fraction, 1-p A2C 56 % LV end-diastolic volume, 1-p A4C 57 ml LV ejection fraction, 1-p A4C 63 % LV e', lateral 0.112 m/sec LV E/e', lateral 8 LV e', medial 0.075 m/sec LV E/e', medial 12 LV e', average 0.094 m/sec LV E/e', average 10 Ventricular septum Value Reference IVS thickness, ED, PLAX 1.1 cm LVOT Value Reference LVOT ID, A-P 1.9 cm LVOT area 2.8 cm^2 LVOT peak velocity, S 0.9 m/sec LVOT mean velocity, S 0.69 m/sec LVOT VTI, S 19.5 cm LVOT peak gradient, S 3.3 mm Hg LVOT mean gradient, S 2 mm Hg Stroke volume (SV), LVOT DP 55 ml Stroke index (SV/bsa), LVOT DP 27 ml/m^2 Aortic valve Value Reference Aortic valve peak velocity, S 1.1 m/sec Aortic valve mean velocity, S 0.9 m/sec Aortic valve VTI, S 26.0 cm Aortic mean gradient, S 3.3 mm Hg Aortic peak gradient, S 5.1 mm Hg VTI ratio, LVOT/AV 0.75 Aortic valve area, VTI 2.1 cm^2 Velocity ratio, peak, LVOT/AV 0.8 Aortic valve area, peak velocity 2.3 cm^2 Velocity ratio, mean, LVOT/AV 0.77 Aortic valve area, mean velocity 2.2 cm^2 Aortic valve area/bsa, mean velocity 1.1 cm^2/m^2 Aorta Value Reference Aortic root ID, ED 2.8 cm Ascending aorta ID, A-P, S 2.7 cm Left atrium Value Reference LA volume/bsa, ES, 1-p A4C 23 ml/m^2 LA volume, ES, 2-p 39 ml LA volume/bsa, ES, 2-p 19 ml/m^2 Mitral valve Value Reference Mitral E-wave peak velocity 0.91 m/sec Mitral A-wave peak velocity 0.61 m/sec Mitral deceleration time 210 ms 150 - 230 Mitral pressure half-time 61 ms Mitral peak gradient, D 3.3 mm Hg Mitral E/A ratio, peak 1.5 Mitral valve area, PHT, DP 3.6 cm^2 Tricuspid valve Value Reference Tricuspid regurg peak velocity 2.1 m/sec Tricuspid peak RV-RA gradient 18.2 mm Hg Right atrium Value Reference RA area, ES, A4C 14.3 cm^2 8.3 - 19.5 Pulmonic valve Value Reference Pulmonic peak gradient, S 2.3 mm Hg Legend: (L) and (H) sabiha values outside specified reference range. I have personally reviewed the images and have reviewed and edited the reported findings. Electronically signed by Shaheen Pope 01/23/2019 12:20
== END 2019-01-23 01:18 ==
PROVIDERS: PCP Nurse Practitioner; Visit Provider Nurse Practitioner
DX: I31.3 Pericardial effusion (noninflammatory) (principal)
CPT/HCPCS: 93306

== ENCOUNTER 2019-03-06 00:46 | Outpatient (CLI) | payer MEDICAID, SELFPAY ==
--- NOTE | 2019-03-06 12:00 | DI.MAMMO_ITS ---
EXAM: MG MAMMO SCREENING CLINICAL HISTORY: screening. TECHNIQUE: Bilateral full field digital CC and MLO mammographic images were obtained with 3D tomosyn thesis and utilizing computer aided detection (CAD). COMPARISON: There are multiple priors with the most recent from 02/24/2018. FINDINGS: Masses/Architectural Distortion: None seen. Microcalcifications: No suspicious pleomorphic-type are seen. IMPRESSION: 1. No significant interval change with no specific features of malignancy noted. 2. Unless there is more urgent need, screening mammography is recommended, as per [place] [employer] guidelines. ACR BI-RAD Category- 1 Negative Breast Density - Category B - Scattered areas of fibroglandular density A negative radiographic report should not delay biopsy if a dominant or clinically suspicious mass is present. Up to ten percent of cancers are not identified on mammography. A negative report may reinforce clinical impression. Adenosis and dense breasts may obscure an underlying neoplasm. False positive reports average 6 to 10%.
== END 2019-03-06 01:06 ==
PROVIDERS: PCP Nurse Practitioner; Visit Provider Nurse Practitioner Family
DX: Z12.31 Encounter for screening mammogram for malignant neoplasm of breast (principal)
CPT/HCPCS: 77063; 77067

== ENCOUNTER 2019-04-13 04:05 | Outpatient (CLI) | payer MEDICAID, SELFPAY ==
--- NOTE | 2019-04-13 12:43 | DI.US_ITS ---
EXAM: US SOFT TISSUE EXTREMITY CLINICAL HISTORY: b/l groin swelling with tenderness, R22.9 TECHNIQUE: Ultrasound performed using standard protocol. Both groin regions were scanned. COMPARISON: No exams were available for comparison FINDINGS: No mass, adenopathy, abscess or edema is seen. IMPRESSION: Negative groin ultrasound.
--- NOTE | 2019-04-13 12:43 | DI.US_ITS ---
EXAM: US SOFT TISSUE HEAD OR NECK CLINICAL HISTORY: left neck, clavicular tenderness and swelling x 3, R22.9 TECHNIQUE: Ultrasound performed using standard protocol. COMPARISON: No exams were available for comparison FINDINGS: The thyroid appears normal. No adenopathy is seen. No soft tissue edema, mass or fluid collection i s seen. IMPRESSION: Negative ultrasound of the neck.
== END 2019-04-13 04:25 ==
PROVIDERS: PCP Nurse Practitioner; Visit Provider Student in an Organized Health Care Education/Training Program
DX: M54.2 Cervicalgia (principal); M25.512 Pain in left shoulder; R22.43 Localized swelling, mass and lump, lower limb, bilateral
CPT/HCPCS: 76536; 76881

== ENCOUNTER 2019-06-01 09:12 | Outpatient (CLI) | payer MEDICAID, SELFPAY ==
[2019-06-01 10:19] LABS: ALT 59 U/L (14-59); AST 28 U/L (15-37); Albumin 3.5 g/dL (3.4-5.0); Alkaline Phosphatase 141 U/L (46-116); Anion Gap 9.9 mmol/L (3-11); BUN 19 mg/dL (7-18); Bilirubin, Total 0.5 mg/dL (0.2-1.0); CO2 27.1 mmol/L (21.0-32.0); Calculated LDL 85 mg/dL; Chloride 105 mmol/L (98-107); Cholesterol 154 mg/dL (<200); Estimated GFR 59.96 (mL/min/1.73m2); Glucose 83 mg/dL (74-106); HDL Cholesterol 49 mg/dL (40-60); Potassium 3.9 mmol/L (3.5-5.1); Sodium 142 mmol/L (136-145); Total Protein 6.7 g/dL (6.4-8.2); Triglyceride 101 mg/dL (<150)
[2019-06-04 11:37] LABS: FSH 102.5 mIU/mL (See Note)
[2019-06-04 16:00] LABS: Estradiol <12 pg/mL (See Note)
== END 2019-06-01 09:32 ==
PROVIDERS: Obstetrics & Gynecology; PCP Nurse Practitioner; Visit Provider Nurse Practitioner
DX: E78.5 Hyperlipidemia, unspecified (principal); F32.9 Major depressive disorder, single episode, unspecified; G47.33 Obstructive sleep apnea (adult) (pediatric); N80.9 Endometriosis, unspecified
CPT/HCPCS: 36415; 80053; 80061; 82670; 83001

== ENCOUNTER 2019-06-13 01:24 | Outpatient (CLI) | payer MEDICAID, SELFPAY ==
--- NOTE | 2019-06-13 08:07 | DI.US_ITS ---
EXAM: US PELVIS TRANSVAGINAL CLINICAL HISTORY: Vaginal bleeding 15 years post hysterectomy,N93.9 TECHNIQUE: Ultrasound performed using standard protocol. Transabdominal and transvaginal exams wer e performed. COMPARISON: CT CHEST/ABD/PEL W from 01/04/2019 FINDINGS: Patient is status post hysterectomy and bilateral oophorectomy. No pelvic mass or fluid collection is seen. The bladder and kidneys are unremarkable. IMPRESSION: No acute abnormality.
== END 2019-06-13 01:44 ==
PROVIDERS: PCP Nurse Practitioner; Visit Provider Obstetrics & Gynecology
DX: N93.9 Abnormal uterine and vaginal bleeding, unspecified (principal); Z90.710 Acquired absence of both cervix and uterus; Z90.722 Acquired absence of ovaries, bilateral
CPT/HCPCS: 76830; 76856

== ENCOUNTER 2019-07-04 13:42 | Emergency (ER) | payer MEDICAID, SELFPAY ==
[2019-07-04 13:48] VITALS: BP 116/65; PULSE 99; RESP 16; TEMP 36.8; O2SAT 93
[2019-07-04 13:55] VITALS: BP 116/65; PULSE 99; O2SAT 91
[2019-07-04 13:56] VITALS: O2SAT 95
[2019-07-04] MEDS: Acetaminophen 500 MG TAB 1000 MG PO (14:31)
--- NOTE | 2019-07-04 14:48 | DI.RAD_ITS ---
EXAM: XR CHEST 2V PA LATERAL CLINICAL HISTORY: cough TECHNIQUE: 2D digital imaging was performed. COMPARISON: LEFT SHOULDER COMPLETE from 04/06/2016 FINDINGS: The cardiac and mediastinal contours have a normal appearance. The lungs are well inflated and clear . No infiltrate, effusion or pneumothorax is seen. No spine or rib fracture is identified. IMPRESSION: Negative chest x-ray.
--- NOTE | 2019-07-04 14:50 | DI.RAD_ITS ---
EXAM: XR KNEE LT 4V AP,LAT,KAREN,PAT INDICATION: pain, fall. COMPARISON: XR knee LT 4V AP,lat,karen,pat from 01/04/2019 TECHNIQUE: 2D digital imaging was performed. FINDINGS: No fracture or joint effusion is seen. The joint spaces are well maintained. IMPRESSION: Negative left knee.
--- NOTE | 2019-07-04 14:55 | DI.RAD_ITS ---
EXAM: XR TIB/FIB LT INDICATION: pain, fall. COMPARISON: XR FEMUR LT from 07/04/2019 TECHNIQUE: 2D digital imaging was performed. FINDINGS: No fracture or dislocation is seen. IMPRESSION: Negative left tibia and fibula
--- NOTE | 2019-07-04 15:02 | DI.RAD_ITS ---
EXAM: XR ANKLE LT COMPLETE INDICATION: pain, fall. COMPARISON: No exams were available for comparison TECHNIQUE: 2D digital imaging was performed. FINDINGS: No fracture or ankle mortise widening is seen. No talar dome defect is present. IMPRESSION: Negative left ankle.
--- NOTE | 2019-07-04 15:08 | DI.RAD_ITS ---
EXAM: XR FEMUR LT INDICATION: PAIN S/P FALL. COMPARISON: No exams were available for comparison TECHNIQUE: 2D digital imaging was performed. FINDINGS: No fracture is identified. There is no evidence of hip dislocation. IMPRESSION: Negative left femur.
--- NOTE | 2019-07-04 15:10 | DI.RAD_ITS ---
EXAM: XR FOOT LT COMPLETE INDICATION: PAIN S/P FALL. COMPARISON: No exams were available for comparison TECHNIQUE: 2D digital imaging was performed. FINDINGS: No fracture or dislocation is seen. IMPRESSION: No acute abnormality.
--- NOTE | 2019-07-04 15:15 | DI.RAD_ITS ---
EXAM: XR PELVIS AP INDICATION: fall, pain. COMPARISON: CT CHEST/ABD/PEL W from 01/04/2019 XR FEMUR LT from 07/04/2019 TECHNIQUE: 2D digital imaging was performed. FINDINGS: No fracture is identified. The hip joints are well maintained obtained. The SI joints are not wide ml. No sacral fracture is visible. IMPRESSION: Negative pelvis.
--- NOTE | 2019-07-04 19:28 | W.ED.GENAD ---
Discharge Plan Disposition Patient Disposition: HOME Condition: Good Discharge Details Chief Complaint: Orthopedic Clinical Impression: Ankle sprain Primary Care Provider: Laura Hidalgo ED Provider: Pastora Javier Home Meds and New Rx's Prescriptions: No Action raloxifene [Evista] 60 mg tablet 60 mg PO DAILY Qty: 90 RF: 3 ranitidine HCl 150 mg tablet 150 mg PO BID Qty: 180 RF: 3 valacyclovir [Valtrex] 500 mg tablet 500 mg PO DAILY Qty: 90 RF: 3 cyclobenzaprine 5 mg tablet 5 mg PO TID PRN (Reason: muscle spasm) Qty: 30 RF: 1 benzonatate [Tessalon Perles] 100 mg capsule 100 mg PO QID PRN (Reason: cough) Qty: 20 RF: 0 baclofen 10 MG tablet 10 mg PO TID RF: 0 topiramate 25 MG tablet 25 mg PO BID RF: 0 meloxicam 7.5 MG tablet 7.5 mg PO DAILY Qty: 30 RF: 11 aspirin 325 MG tablet 325 mg PO DAILY RF: 0 cyanocobalamin (vitamin B-12) 1,000 MCG tablet 1,000 mcg PO DAILY RF: 0 naproxen [Naprosyn] 500 MG tablet 500 mg PO BID PRNRF: 0 atorvastatin 20 mg tablet 20 mg PO QPM Qty: 90 RF: 3 albuterol sulfate [ProAir HFA] 90 mcg/actuation HFA aerosol inhaler 2 puff Inhalation QID PRN (Reason: shortness of breath or wheezing) Qty: 18 RF: 3 omeprazole 40 mg capsule,delayed release(DR/EC) 40 mg PO DAILY Qty: 90 RF: 3 amitriptyline 50 MG tablet 50 mg PO HS RF: 0 calcium carbonate 500 MG tablet,chewable 500 mg CH DAILY RF: 0 multivitamin [Daily Multi-Vitamin] 1 EACH tablet 1 ea PO DAILY RF: 0 Discharge Instructions Instructions: Ankle Sprain (ED) Additional Instructions: Rest. Activities as tolerated. Elevate injury to prevent swelling. Use cane for ambulation Use boot for support Ice to the area of discomfort for 15 min. 3-5 times daily. Motrin every 8 hours with food or Tylenol every 6 hours for soreness if needed over the counter for comfort. Followup with orthopedic doctor as discussed if not improving in one week. Return for any worsening or concerns sooner if needed. Referrals: Layo Kumar MD [ [facility] STAFF PHYSICIAN] - Discharge Data Discharge Date/Time-TO BE ENTERED AT DEPARTURE: 07/04/19 16:58 Medical Decision Making This a pleasant 44-year-old patient presenting to the emergency room after a fall when slipping on tiled rosalie while using tracks on her feet. Patient denies striking head or neck. Reports mild lower back pain which seems to be her baseline. Patient primarily complaining of left ankle pain. Patient denies any other extremity injuries reported. Full range of motion of upper extremities without pain. On exam patient does have tenderness throughout the whole left leg including the hip, femur, knee, mejia, ankle and foot. No obvious deformities or areas of swelling noted. Pulses are intact distally. Patient has no other evident injuries at this time. Reviewed patient's vital signs. Patient's O2 sat noted to be 93 which she reports is somewhat atypical. She did have recent pneumonia but never had follow-up x-ray. Will x-ray patient's chest given mild hypoxia although she has no obvious difficulty breathing shortness of breath or wheezing at this time. She did report her cough did return yesterday but attributes that to possible developing viral illness. Patient consents to Tylenol for pain. X-rays obtained of the lower extremity on the left. No obvious fractures noted of the lower extremity. Discussed bracing. Given patient's limitations to use of crutches. She does feel most comfortable with a walker. Prescription provided for a walker for home. Patient's preference is also to use a walking boot on the injured leg for management of sprain. Boot provided. Encouraged orthopedic follow-up for any persistence of symptoms. Patient feels comfortable with plan of care. Rice encouraged. Encouraged prompt follow-up for any persistence of pain, worsening or alarming symptoms sooner if needed. Insert discharge statement HPI General Date/Time Provider Initiated Documentation: 07/04/19 14:00. HPI Narrative: This a 44-year-old patient with a history of cerebral palsy who is quite pleasant presenting to the emergency room for complaints of a fall. Patient reports she was going to an meeting and she had tracks on her feet to prevent slipping on ice she walked into a tiled floor and slipped landing with her left leg folded beneath her. She reports feeling a pop in her ankle. Patient reports moderate pain in her ankle. Patient denies any other sites of pain or concerns. Denies striking head. Denies loss of consciousness, headache, dizziness. Denies any neck or back pain. Patient does report mild chronic lower back pain seemingly unchanged. Patient denies any upper extremity injuries. Patient primarily concerned with the left ankle. Patient does report mild chronic paresthesia of the lower legs and it is difficult to determine if there is any new numbness, tingling or weakness. Patient denies any open wounds. Arrives via EMS Related Data Home Medications Medication Instructions Recorded Confirmed baclofen 10 mg PO TID tab-cap 01/29/13 07/04/19 amitriptyline 50 mg PO HS 02/13/13 07/04/19 calcium carbonate 500 mg CH DAILY 02/13/13 07/04/19 multivitamin [Daily Multi-Vitamin] 1 ea PO DAILY 02/13/13 07/04/19 topiramate 25 mg PO BID 08/15/14 06/22/19 meloxicam 7.5 mg PO DAILY #30 tab-cap 07/29/15 07/04/19 aspirin 325 mg PO DAILY tab-cap 02/21/17 07/04/19 cyanocobalamin (vitamin B-12) 1,000 mcg PO DAILY 02/21/17 07/04/19 naproxen [Naprosyn] 500 mg PO BID PRN tab-cap 11/08/17 07/04/19 raloxifene 60 mg tablet 60 mg PO DAILY #90 tab-cap 10/31/18 07/04/19 ranitidine HCl 150 mg tablet 150 mg PO BID #180 tab-cap 10/31/18 07/04/19 atorvastatin 20 mg tablet 20 mg PO QPM #90 tab 11/06/18 07/04/19 albuterol sulfate 90 mcg/actuation 2 puff INHALATION QID PRN #18 gm 02/01/19 07/04/19 aerosol inhaler valacyclovir 500 mg tablet 500 mg PO DAILY #90 tab-cap 02/13/19 07/04/19 omeprazole 40 mg capsule,delayed 40 mg PO DAILY #90 capsule. 05/31/19 07/04/19 release cyclobenzaprine 5 mg tablet 5 mg PO TID PRN #30 tab 06/15/19 07/04/19 benzonatate 100 mg capsule 100 mg PO QID PRN #20 cap 06/22/19 07/04/19 Previous Rx's Medication Instructions Recorded raloxifene 60 mg tablet 60 mg PO DAILY #90 tab-cap 10/31/18 ranitidine HCl 150 mg tablet 150 mg PO BID #180 tab-cap 10/31/18 atorvastatin 20 mg tablet 20 mg PO QPM #90 tab 11/06/18 albuterol sulfate 90 mcg/actuation 2 puff INHALATION QID PRN #18 gm 02/01/19 aerosol inhaler valacyclovir 500 mg tablet 500 mg PO DAILY #90 tab-cap 02/13/19 omeprazole 40 mg capsule,delayed 40 mg PO DAILY #90 capsule. 05/31/19 release cyclobenzaprine 5 mg tablet 5 mg PO TID PRN #30 tab 06/15/19 benzonatate 100 mg capsule 100 mg PO QID PRN #20 cap 06/22/19 Allergies Allergy/AdvReac Type Severity Reaction Status Date / Time fluconazole Allergy Severe SEIZURE Verified 07/04/19 14:02 Sulfa (Sulfonamide Allergy Severe SEIZURE Verified 07/04/19 14:02 Antibiotics) trimethoprim Allergy Intermediate UNKNOWN Verified 07/04/19 14:02 General Stated Complaint: Orthopedic JACOB: 4 Review of Systems All systems reviewed & are unremarkable except as noted in HPI and below Constitutional Constitutional: Denies fatigue, Denies headache(s) and Denies malaise Eyes Eyes: Denies blurry vision, Denies change in vision and Denies diplopia ENT Ears, Nose, Mouth, and Throat: Denies headache(s) and Denies neck pain Cardiovascular Cardiovascular: Denies chest pain, Denies dyspnea and Denies dyspnea on exertion Respiratory Respiratory: Denies cough, Denies dyspnea and Denies dyspnea on exertion Gastrointestinal Gastrointestinal: Denies abdominal pain Musculoskeletal Musculoskeletal: Reports abnormal gait (Limping), Reports back pain (Chronic), Denies deformity, Denies joint swelling and Denies neck pain Integumentary/Breasts Skin/Breast: Denies wounds Neurologic Neurologic: Reports abnormal gait (Limping) and Denies headache(s) Endocrine Endocrine: Denies fatigue [facility] Medical History Congenital stroke Depression Elevated cholesterol (Chronic) Endometriosis Gallstones GERD (gastroesophageal reflux disease) Heart burn Hemianopsia left Hemiparesis left History of alcohol abuse HSV infection Hx of drug abuse Hx of renal calculi Migraine Obstructive sleep apnea on CPAP (Acute) Retinal detachment, left Sleep-related bruxism (Acute) Urinary incontinence Social History Smoking/Tobacco Use Status: Former Tobacco Use Alcohol Intake: former Drug use: Current Sobriety Substance use type: does not use Caregiver/Support person: No Number of Children: 3 Communication Needs: None Education Level: high school current occupation: Disability Pets and animals: Yes Pets and animals: cat(s) Current gender identity: female What type of physical activity do you participate in: resistance training Frequency: 1-2 times per week Seatbelt use: always Water heater temp set <120 deg: Yes Working smoke detector in home: Yes Fire extinguisher in home: Yes Carbon monox detector in home: Yes Firearms in home: No Do you feel safe at home: Yes Do you feel safe in your relationship?: Yes Female Reproductive History Menstrual Menopause type: surgical History History 3 Para 3 Hx # Term Pregnancies Multiple births Hx # Pregnancies Ectopic pregnancies AB induced Hx Number of Living Children AB spontaneous Exam Narrative Exam Narrative: CONST: Healthy appearing patient, in no acute distress. Well hydrated. Alert and oriented. HENMT: Head nomocephalic, normal to inspection. Atraumatic. Hearing grossly normal. EYES: General normal appearance. Alignment normal. Eyelids normal. Conjunctiva normal. NECK: Normal visual inspection. FROM. Trachea midline. No Midline tenderness. CHEST: Normal insepection of the chest. No rib pain with palpation RESP: Normal respiratory effort. Speaking full sentences. No cough. No audible wheezing. No retractions. MUSCULOSKELETAL: Normal Gait. FROM of all extremities. Full range of motion of upper extremities. 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 Right leg straight leg raise intact. Limitation to left leg straight leg raise due to pain. Left hip with palpable tenderness. Mild femoral pain with palpation without obvious deformity or swelling. Mild knee pain with palpation throughout without associated effusion. No significant posterior knee pain. No calf pain with palpation. Mild tibial tenderness in the mid tibia. Ankle pain noted overlying the lateral malleolus, medial malleolus tenderness also noted. No obvious rupture of the Achilles tendon on exam. Dorsal foot pain with palpation. Pulses are intact. Sensation is intact. No obvious deformity noted. Right leg exam is benign. SKIN: Normal. Dry. No rashes. NEURO: Alert and awake. Speech clear. PSYCH: Normal affect. Cooperative. Course Vital Signs Vital signs: Vital Signs Temperature 36.8 C 07/04/19 13:48 Pulse 99 H 07/04/19 13:48 Respiratory Rate 16 07/04/19 13:48 Blood Pressure 116/65 07/04/19 13:48 Pulse Oximetry 93 L 07/04/19 13:48 Temperature 36.8 C 07/04/19 13:48 Temperature Source Skin 07/04/19 13:48 Pulse 99 H 07/04/19 13:55 Respiratory Rate 16 07/04/19 13:48 Respiratory Effort Non-Labored 07/04/19 13:48 Blood Pressure 116/65 07/04/19 13:55 Blood Pressure Mean 73 07/04/19 13:55 Blood Pressure Position Supine 07/04/19 13:48 Pulse Oximetry 95 07/04/19 13:56 Oxygen Delivery Method Room Air 07/04/19 13:48 Oxygen Flow Rate 0 07/04/19 13:48 Pain Level 4 07/04/19 17:00
== END 2019-07-04 16:58 | disposition home or self-care (01) ==
PROVIDERS: Emergency Provider Physician Assistant; PCP Nurse Practitioner
DX: S93.402A Sprain of unspecified ligament of left ankle, initial encounter (principal); W01.0XXA Fall on same level from slipping, tripping and stumbling without subsequent striking against object, initial encounter
CPT/HCPCS: 29515; 73552; 99284; 71046; 72170; 73564; 73590; 73610; 73630; 99283; L4361

== ENCOUNTER 2019-07-25 09:49 | Outpatient (CLI) | payer MEDICAID, SELFPAY ==
--- NOTE | 2019-07-25 12:30 | DI.RAD_ITS ---
EXAM: XR CLAVICLE LT CLINICAL HISTORY: BILATERAL CLAVICULAR PAIN AND ? SWELLING M89.8X1 TECHNIQUE: 2D digital imaging was performed. COMPARISON: No exams were available for comparison FINDINGS: BONES: No acute fracture is present. No bony destructive lesion is seen. JOINTS: No dislocation present. SOFT TISSUE: Normal. IMPRESSION: Unremarkable radiographs of the left clavicle.
--- NOTE | 2019-07-25 12:30 | DI.RAD_ITS ---
EXAM: XR CERVICAL SPINE COMP 4-5V CLINICAL HISTORY: PAIN M54.2 CERVICALGIA. TECHNIQUE: 2D digital imaging was performed. COMPARISON: No exams were available for comparison FINDINGS: BONES: No fracture or destructive lesion. Vertebral bodies are unremarkable. DISKS: Intervertebral disc spaces are maintained. ALIGNMENT: Cervical spinal alignment is within normal limits. The odontoid and atlantoaxial articulat ions are normal. SOFT TISSUE: Normal. The lung apices are clear. IMPRESSION: Unremarkable radiographs of the cervical spine.
--- NOTE | 2019-07-25 12:30 | DI.RAD_ITS ---
EXAM: XR CLAVICLE RT CLINICAL HISTORY: PAIN AND ? CLAVICULAR SWELLING M89.8X1 TECHNIQUE: 2D digital imaging was performed. COMPARISON: No exams were available for comparison FINDINGS: BONES: No acute fracture is present. No bony destructive lesion is seen. JOINTS: No dislocation present. SOFT TISSUE: Normal IMPRESSION: Unremarkable radiographs of the right clavicle.
== END 2019-07-25 10:09 ==
PROVIDERS: PCP Nurse Practitioner; Visit Provider Nurse Practitioner
DX: M54.2 Cervicalgia (principal); M89.8X1 Other specified disorders of bone, shoulder
CPT/HCPCS: 72050; 73000

== ENCOUNTER 2019-08-31 09:20 | Emergency (ER) | payer MEDICAID, SELFPAY ==
[2019-08-31] VITALS (15 sets, daily range): BP systolic 97–120; BP diastolic 52–99; PULSE 72–132; RESP 12–25; TEMP 36.3–37; O2SAT 90–97
--- NOTE | 2019-08-31 09:41 | W.ED.GENAD ---
Discharge Plan Disposition Patient Disposition: HOME Condition: Stable Discharge Details Chief Complaint: RespSymp Clinical Impression: URI (upper respiratory infection), Influenza B Primary Care Provider: Laura Hidalgo ED Provider: Renetta Nava Home Meds and New Rx's Prescriptions: New benzonatate [Tessalon Perles] 100 mg capsule 100 mg PO BID-TID PRN (Reason: cough) Qty: 14 RF: 0 oseltamivir [Tamiflu] 75 mg capsule 75 mg PO BID 5 Days Qty: 10 RF: 0 Continued ranitidine HCl 150 mg tablet 150 mg PO BID Qty: 180 RF: 3 valacyclovir [Valtrex] 500 mg tablet 500 mg PO DAILY Qty: 90 RF: 3 baclofen 10 MG tablet 10 mg PO TID RF: 0 topiramate 25 MG tablet 25 mg PO BID RF: 0 meloxicam 7.5 MG tablet 7.5 mg PO DAILY Qty: 30 RF: 11 aspirin 325 MG tablet 325 mg PO DAILY RF: 0 cyanocobalamin (vitamin B-12) 1,000 MCG tablet 1,000 mcg PO DAILY RF: 0 naproxen [Naprosyn] 500 MG tablet 500 mg PO BID PRNRF: 0 atorvastatin 20 mg tablet 20 mg PO QPM Qty: 90 RF: 3 albuterol sulfate [ProAir HFA] 90 mcg/actuation HFA aerosol inhaler 2 puff Inhalation QID PRN (Reason: shortness of breath or wheezing) Qty: 18 RF: 3 omeprazole 40 mg capsule,delayed release(DR/EC) 40 mg PO DAILY Qty: 90 RF: 3 azithromycin [Zithromax Z-Colten] 250 mg tablet See Rx Instructions PO .COMPLEX Qty: 6 RF: 0 amitriptyline 50 MG tablet 50 mg PO HS RF: 0 calcium carbonate 500 MG tablet,chewable 500 mg CH DAILY RF: 0 multivitamin [Daily Multi-Vitamin] 1 EACH tablet 1 ea PO DAILY RF: 0 Discharge Instructions Instructions: Upper Respiratory Infection (ED) Additional Instructions: Follow up with primary care provider in 3-5 days. Return to ED sooner if any worsening or concerns. Increase oral fluids. Take medications as instructed. Continue taking antibiotic and prednisone. At this time your symptoms are very concerning for coronavirus. Due to the increased likelihood of your symptoms being from coronavirus the CDC does recommend testing. It takes 48 to 72 hours for the test results to return. You will be contacted by [facility] staff when your results return. If you do not hear from them in 48 to 72 hours, please contact [facility]. Out of an abundance of precaution it is highly recommended that you self quarantine yourself for a total of 14 days or until symptom-free for greater than 24 to 48 hours. It would be prudent to wear a mask at all times, always wash her hands frequently, and follow-up closely with your primary care provider. It is recommended that you call your primary care provider prior to reassessment. If you are going to a health facility, please call/contact them before you arrive. At this time based on your current symptoms the CDC does not recommend admission, and there is no current clinical indication for your admission here at the hospital. However it is vitally important to monitor your symptoms closely, and if you notice any worsening of your symptoms, or any new symptoms such as worsening shortness of breath, difficulty breathing, persistent fever, worsening chills, chest pain, numbness, weakness, or fainting please call and then return immediately to the emergency department for reevaluation. Please call your primary care provider as soon as possible to make them aware of your current situation and for continued monitoring. As always, it was a pleasure participating in your medical care today. Stand Alone Forms: Work Release Referrals: Laura Hidalgo NP [Primary Care Provider] - Discharge Data Discharge Date/Time-TO BE ENTERED AT DEPARTURE: 08/31/19 12:23 Medical Decision Making 44-year-old female presents with 10 days of upper respiratory type symptoms including cough, fever, throat pain. Patient states that approximately 8 days ago she contacted her PCP who placed her on prednisone and azithromycin which she is still taking. She reports that her symptoms have gotten worse. She reports some loose stools no nausea vomiting. She states that she was in contact with a friend who had recently traveled to [place] and back. At this time work-up ordered including CBC, CMP, flu and Covid swab and chest x-ray. FINDINGS: MEDIASTINUM: Normal. HEART: Normal. PULMONARY VASCULATURE: Normal. LUNGS: Clear. PLEURAL SPACE: No pleural effusion or pneumothorax. BONE:Normal. OTHER FINDINGS:Normal. IMPRESSION: No acute pulmonary findings. Positive Influenza B swab, patient discharged with Tessalon Perles and Tamiflu 75 mg twice daily x5 days. Patient to be discharged home to self isolate at this time, discussed instructions with patient, verbalized understanding. Currently the patient does have a concerning travel history to a high risk area, and/or direct or known indirect exposure to an area and/or patient's with known coronavirus activity. The patient demonstrates some concerning red flags as noted by the CDC for coronavirus including fever, cough, and/or shortness of breath. The patient looks notably clinically well, and does not demonstrate evidence of respiratory distress, significant or severe illness, or sepsis. Per CDC recommendations, coronavirus testing has been performed and is approved by the [facility]. Additionally patient currently does not demonstrate symptoms indicative of admission or further observation here. At this time based on the patient's current clinical picture symptoms are likely secondary to a non-coronavirus viral illness. Out of an abundance of precaution taking into account the current level of national concern, the patient's entire clinical picture, and CDC recommendations, the patient can be discharged home. Per CDC recommendations we will recommend a 14-day quarantine of the patient I have discussed good handwashing techniques, the importance of a mask, and we have also included CDC recommendations for home monitoring and isolation. I have extensively reviewed the treatment plan and discharge instructions with the patient. I have addressed all patient concerns at this time. The patient was made aware of what symptoms to monitor for that would warrant a return to the emergency department. I also discussed the importance of calling the patient's PCP, as well as the ED for any concerns or prior to return. Discussed the plan with the patient, they demonstrate verbal understanding and agreement with our assessment and plan at this time. HPI General Mode of arrival: ambulatory. Date/Time Provider Initiated Documentation: 08/31/19 09:24. Limitations to Documentation: no limitations. Information obtained by: patient. HPI Narrative: 44-year-old female presents with 10 days of upper respiratory type symptoms including cough, fever, throat pain. Patient states that approximately 8 days ago she contacted her PCP who placed her on prednisone and azithromycin which she is still taking. She reports that her symptoms have gotten worse. She reports some loose stools no nausea vomiting. She states that she was in contact with a friend who had recently traveled to [place] and back. Related Data Home Medications Medication Instructions Recorded Confirmed baclofen 10 mg PO TID tab-cap 01/29/13 08/31/19 amitriptyline 50 mg PO HS 02/13/13 08/31/19 calcium carbonate 500 mg CH DAILY 02/13/13 08/31/19 multivitamin [Daily Multi-Vitamin] 1 ea PO DAILY 02/13/13 08/31/19 topiramate 25 mg PO BID 08/15/14 08/31/19 meloxicam 7.5 mg PO DAILY #30 tab-cap 07/29/15 08/31/19 aspirin 325 mg PO DAILY tab-cap 02/21/17 08/31/19 cyanocobalamin (vitamin B-12) 1,000 mcg PO DAILY 02/21/17 08/31/19 naproxen [Naprosyn] 500 mg PO BID PRN tab-cap 11/08/17 08/31/19 ranitidine HCl 150 mg tablet 150 mg PO BID #180 tab-cap 10/31/18 08/31/19 atorvastatin 20 mg tablet 20 mg PO QPM #90 tab 11/06/18 08/31/19 albuterol sulfate 90 mcg/actuation 2 puff INHALATION QID PRN #18 gm 02/01/19 08/31/19 aerosol inhaler valacyclovir 500 mg tablet 500 mg PO DAILY #90 tab-cap 02/13/19 08/31/19 omeprazole 40 mg capsule,delayed 40 mg PO DAILY #90 capsule. 05/31/19 08/31/19 release azithromycin 250 mg tablet See Rx Instructions PO .COMPLEX #6 08/27/19 08/31/19 tab benzonatate [Tessalon Perles] 100 mg PO BID-TID PRN #14 cap 08/31/19 oseltamivir [Tamiflu] 75 mg PO BID 5 Days #10 cap 08/31/19 Previous Rx's Medication Instructions Recorded ranitidine HCl 150 mg tablet 150 mg PO BID #180 tab-cap 10/31/18 atorvastatin 20 mg tablet 20 mg PO QPM #90 tab 11/06/18 albuterol sulfate 90 mcg/actuation 2 puff INHALATION QID PRN #18 gm 02/01/19 aerosol inhaler valacyclovir 500 mg tablet 500 mg PO DAILY #90 tab-cap 02/13/19 omeprazole 40 mg capsule,delayed 40 mg PO DAILY #90 capsule. 05/31/19 release azithromycin 250 mg tablet See Rx Instructions PO .COMPLEX #6 08/27/19 tab benzonatate [Tessalon Perles] 100 mg PO BID-TID PRN #14 cap 08/31/19 oseltamivir [Tamiflu] 75 mg PO BID 5 Days #10 cap 08/31/19 Allergies Allergy/AdvReac Type Severity Reaction Status Date / Time fluconazole Allergy Severe SEIZURE Verified 08/31/19 09:29 Sulfa (Sulfonamide Allergy Severe SEIZURE Verified 08/31/19 09:29 Antibiotics) trimethoprim Allergy Intermediate UNKNOWN Verified 08/31/19 09:29 General Stated Complaint: RespSymp JACOB: 3 Review of Systems Narrative: Constitutional: Negative for weight loss, alert and oriented, well groomed, normal body habitus, appears uncomfortable. HEENT: Denies trauma, headaches, blurry vision, trouble swallowing. Chest: Denies chest pain, palpitations, irregular rhythm, hypertension. Respiratory: Denies hemoptysis. Positive cough, shortness of breath GI: Denies abdominal pain, nausea, vomiting, constipation. Reports mild loose stools. : Denies dysuria, hematuria, flank pain, rectal bleeding. Neuro: Denies dizziness, blurry vision, weakness, syncope, headache or facial numbness. Hematologic: Denies easy bruising, intolerance to heat or cold, hair loss. [facility] Medical History Congenital stroke Depression Elevated cholesterol (Chronic) Endometriosis Gallstones GERD (gastroesophageal reflux disease) Heart burn Hemianopsia left Hemiparesis left History of alcohol abuse HSV infection Hx of drug abuse Hx of renal calculi Migraine Obstructive sleep apnea on CPAP (Acute) Retinal detachment, left Sleep-related bruxism (Acute) Urinary incontinence Surgical History Cholecystectomy (06/05/17) EGD - MAC (04/18/17) Laparotomy (06/11/17) drain placement, biloma left hand tendon surgery Oophrectomy, Both with hyst renal stent Trigger Finger release (05/13/15) L sm finger Dr Gilliam Vaginal hysterectomy 2003 for Endometriosis Family History Mother Breast cancer COPD (chronic obstructive pulmonary disease) Thyroid disorder Father Heart disease Grandmother Breast cancer Paternal Maternal Aunt Breast cancer paternal Social History Smoking/Tobacco Use Status: Former Tobacco Use Alcohol Intake: former Drug use: Current Sobriety Substance use type: does not use Caregiver/Support person: No Number of Children: 3 Communication Needs: None Education Level: high school current occupation: Disability Pets and animals: Yes Pets and animals: cat(s) Current gender identity: female What type of physical activity do you participate in: resistance training Frequency: 1-2 times per week Seatbelt use: always Water heater temp set <120 deg: Yes Working smoke detector in home: Yes Fire extinguisher in home: Yes Carbon monox detector in home: Yes Firearms in home: No Do you feel safe at home: Yes Do you feel safe in your relationship?: Yes Female Reproductive History Menstrual Menopause type: surgical History History 3 Para 3 Hx # Term Pregnancies Multiple births Hx # Pregnancies Ectopic pregnancies AB induced Hx Number of Living Children AB spontaneous Exam Narrative Exam Narrative: Constitutional: Allert and oriented x3. Appears stated age. Head: Normocephalic, no trauma. Eyes: Pupils PERRLA, Red reflex noted, EOM's intact. Eyelids symmetrical withour lesions, discharge, or swelling. ENT: Bilateral TM's WNL, External ear normal to inspection, no mastoid TTP, swelling, or erythema, Nasal turbinates WNL, no nasal discharge. Normal dentition, Posterior pharynx WNL, no exudate. Chest: Tachycardic at approximately 114 normal S1, S2, distal pulses intact. Resp: Lungs coarse bilaterally, no wheezes, rhonchi noted bilaterally. Musculoskeletal: Normal gait, 5/5 strength to all four extremities. Skin: No suspicious rashes or lesions. Capillary refill less than 2 sec. Neurologic: Cranial nerves II-XII intact. Alert and oriented x 3. DTR's intact. Hematologic/Lymphatic: No ecchymosis, no lymphadenopathy. Course Vital Signs Vital signs: Vital Signs Temperature 36.3 C L 08/31/19 09:26 Pulse 105 H 08/31/19 09:26 Respiratory Rate 18 08/31/19 09:26 Blood Pressure 108/71 08/31/19 09:26 Pulse Oximetry 94 L 08/31/19 09:26 Temperature 36.3 C L 08/31/19 09:26 Temperature Source Temporal Artery Scan 08/31/19 09:26 Pulse 105 H 08/31/19 09:26 Respiratory Rate 18 08/31/19 09:26 Respiratory Effort 08/31/19 09:31 Respiratory Depth Normal 08/31/19 09:31 Blood Pressure 108/71 08/31/19 09:26 Blood Pressure Position Sitting 08/31/19 09:26 Pulse Oximetry 94 L 08/31/19 09:26 Oxygen Delivery Method Room Air 08/31/19 09:26 Oxygen Flow Rate 0 08/31/19 09:26
[2019-08-31] MEDS: Normal Saline 1,000 ML 1000 ML IV (09:56)
[2019-08-31 10:02] LABS: Abs Immature Grans 0.06 k/cumm (0.0-0.09); Absolute Basophil Count 0.01 k/cumm (0.0-0.2); Absolute Eosinophil Count 0.04 k/cumm (0.0-0.7); Absolute Lymphocyte Count 2.36 k/cumm (1.2-3.4); Absolute Monocyte Count 0.55 k/cumm (0.11-0.7); Absolute Neutrophil Count 6.34 k/cumm (1.2-6.7); Basophils % 0.1; Eosinophils % 0.4; HCT 43.3 % (36.0-46.0); HGB 14.9 g/dL (12.0-15.5); Immature Grans % 0.6 %; Lymphocytes % 25.2; Mean Corp. HGB Concentration 34.4 g/dL (32.0-36.0); Mean Corpuscular Hemoglobin 30.5 pg (27.0-33.0); Mean Corpuscular Volume 88.7 fL (80-95); Mean Platelet Volume 10.3 fL (8.0-11.0); Monocytes % 5.9; Neutrophils % 67.8; Platelet Count 285 x1000/uL (130-400); RBC 4.88 m/cumm (4.00-5.20); RBC Distribution Width 13.1 % (11.7-14.6); White Blood Cell Count 9.36 k/cumm (4.4-10.8)
[2019-08-31 10:20] LABS: ALT 38 U/L (14-59); AST 15 U/L (15-37); Albumin 3.5 g/dL (3.4-5.0); Alkaline Phosphatase 149 U/L (46-116); Anion Gap 9.1 mmol/L (3-11); BUN 20 mg/dL (7-18); Bilirubin, Total 0.4 mg/dL (0.2-1.0); CO2 25.9 mmol/L (21.0-32.0); CREATININE 0.95 mg/dL (0.55-1.02); Calcium 9.1 mg/dL (8.5-10.1); Chloride 107 mmol/L (98-107); Glucose 98 mg/dL (74-106); Sodium 142 mmol/L (136-145); Total Protein 7.3 g/dL (6.4-8.2)
--- NOTE | 2019-08-31 11:10 | DI.RAD_ITS ---
EXAM: XR PORTABLE CHEST AP CLINICAL HISTORY: Cough, fever TECHNIQUE: 2D digital imaging was performed. COMPARISON: No exams were available for comparison FINDINGS: MEDIASTINUM: Normal. HEART: Normal. PULMONARY VASCULATURE: Normal. LUNGS: Clear. PLEURAL SPACE: No pleural effusion or pneumothorax. BONE:Normal. OTHER FINDINGS:Normal. IMPRESSION: No acute pulmonary findings. DATA REPOSITORY: RADIATION DOSE DELIVERED:
[2019-09-02 14:08] LABS: SARS-CoV-2 RNA Undetected (Undetected); SARS-CoV-2 Specimen Source Nasopharynx
== END 2019-08-31 12:23 | disposition home or self-care (01) ==
LOC: ER 12:20
PROVIDERS: Emergency Provider Registered Nurse Emergency; PCP Nurse Practitioner
DX: J10.1 Influenza due to other identified influenza virus with other respiratory manifestations (principal); Z87.891 Personal history of nicotine dependence
CPT/HCPCS: 36415; 80053; 87449; 96360; 99284; U0003; 71045; 85025

== ENCOUNTER 2020-03-07 04:35 | Outpatient (CLI) | payer MEDICAID, SELFPAY ==
--- NOTE | 2020-03-07 11:12 | DI.MAMMO_ITS ---
EXAM: MAMMO SCREENING CLINICAL HISTORY: screening TECHNIQUE: Mammograms were interpreted according to the usual protocol including computer analysis w [employer] CAD system, tomosynthesis and C-view imaging. COMPARISON: 2010 through 2018 FINDINGS: The breasts are composed of scattered fibroglandular densities, Breast Density category B. No suspicious masses or suspicious microcalcifications are seen. No skin thickening or abnormal axillary lymph nodes are seen. There has been no significant change from prior exams. IMPRESSION: BI-RADS Category 1, Negative mammogram Yearly screening mammography is recommended. Breast Density - Category B, scattered fibroglandular densities. A negative radiographic report should not delay biopsy if a dominant or clinically suspicious mass is present. Up to ten percent of cancers are not identified on mammography. A negative report may reinforce clinical impression. Adenosis and dense breasts may obscure an underlying neoplasm. False positive reports average 6 to 10%. Patient will receive a letter notifying them of these results.
== END 2020-03-07 04:55 ==
PROVIDERS: PCP Nurse Practitioner; Visit Provider Nurse Practitioner Family
DX: Z12.31 Encounter for screening mammogram for malignant neoplasm of breast (principal)
CPT/HCPCS: 77063; 77067

== ENCOUNTER 2020-04-14 11:22 | Outpatient (CLI) | payer MEDICAID, SELFPAY ==
[2020-04-17 16:37] LABS: Patient Race White; SARS-CoV-2 RNA Undetected (Undetected); SARS-CoV-2 Specimen Source Nasal
== END 2020-04-14 11:42 ==
PROVIDERS: PCP Nurse Practitioner; Visit Provider Nurse Practitioner
DX: R05 Cough (principal); R06.02 Shortness of breath; R50.9 Fever, unspecified
CPT/HCPCS: U0003

== ENCOUNTER 2020-06-11 17:47 | Outpatient (CLI) | payer MEDICAID, SELFPAY ==
--- NOTE | 2020-06-11 11:45 | DI.RAD_ITS ---
EXAM: XR ANKLE LT COMPLETE CLINICAL HISTORY: Pain LT ANKLE M25.572 M79.672 PAIN LT FOOT. TECHNIQUE: 2D digital imaging was performed. COMPARISON: CR XR ANKLE LT COMPLETE from 07/04/2019 FINDINGS: There is soft tissue swelling laterally but no evidence of fracture or widening of the mortise. Irais r dome appears unremarkable. No malleolar fractures evident. No obvious tarsal coalition. Bone den sity is age-appropriate. IMPRESSION: DATA REPOSITORY: RADIATION DOSE DELIVERED:
--- NOTE | 2020-06-11 11:45 | DI.RAD_ITS ---
EXAM: XR FOOT LT COMPLETE CLINICAL HISTORY: Pain LT ANKLE M25.572 M79.672 PAIN LT FOOT. TECHNIQUE: 2D digital imaging was performed. COMPARISON: CR XR FOOT LT COMPLETE from 07/04/2019 FINDINGS: There is no evidence of fracture nor diastasis of the Lisfranc joint. Soft tissue selling is again n oted dorsally over the metatarsals but there are no metatarsal fractures evident. Hallux valgus is a gain noted. Great toe metatarsophalangeal joint exhibits minimal if any significant degenerative barrett nge. There are no osseous erosions. Bone density is age appropriate. No significant osseous lesion s nor erosions evident. IMPRESSION: Soft tissue swelling. No obvious fractures evident. Hallux valgus. DATA REPOSITORY: RADIATION DOSE DELIVERED:
== END 2020-06-11 18:07 ==
PROVIDERS: PCP Nurse Practitioner; Visit Provider Nurse Practitioner
DX: M79.89 Other specified soft tissue disorders (principal); M25.572 Pain in left ankle and joints of left foot; M79.672 Pain in left foot
CPT/HCPCS: 73610; 73630

== ENCOUNTER 2020-08-18 03:19 | Outpatient (CLI) | payer MEDICAID, SELFPAY ==
[2020-08-18 12:38] LABS: WBC 6.11 10^3/uL (4.4-10.8)
[2020-08-18 13:10] LABS: C-Reactive Protein 0.16 mg/dL (0.0-0.3); Uric Acid 5.3 mg/dL (2.6-6.0)
[2020-08-18 17:01] LABS: Rheumatoid Factor <8.6 IU/mL (<12.0)
[2020-08-18 18:49] LABS: ESR 9 mm/hr (<or=20)
[2020-08-19 14:01] LABS: ANA Interpretation Negative (Negative)
== END 2020-08-18 03:20 | disposition home or self-care (01) ==
LOC: LBO 03:19
PROVIDERS: PCP Nurse Practitioner; Visit Provider Podiatrist Foot & Ankle Surgery
DX: M19.072 Primary osteoarthritis, left ankle and foot (principal)
CPT/HCPCS: 36415; 85048; 85652; 84550; 86038; 86140; 86431

== ENCOUNTER 2020-10-09 03:34 | Outpatient (CLI) | payer MEDICAID, SELFPAY ==
[2020-10-09 09:50] LABS: HCT 43.4 % (36.0-46.0); HGB 14.6 g/dL (11.2-15.7); MCHC 33.6 % (32.0-36.0); MCV 89.3 fL (80-95); MPV 10.1 fL (8.0-11.0); Platelet Count 237 10^3/uL (130-400); RBC 4.86 10^6/uL (3.93-5.22); RDW 12.4 % (11.7-14.6); RDW-SD 40.1 fL; WBC 7.15 10^3/uL (4.4-10.8)
[2020-10-09 12:06] LABS: ALT 76 U/L (14-59); AST 37 U/L (15-37); Albumin 3.6 g/dL (3.4-5.0); Alkaline Phosphatase 163 U/L (46-116); Anion Gap 7.3 mmol/L (3-11); BUN 17 mg/dL (7-18); Bilirubin, Total 0.4 mg/dL (0.2-1.0); CO2 30.7 mmol/L (21.0-32.0); Calcium 9.4 mg/dL (8.5-10.1); Calculated LDL 68 mg/dL (<100); Chloride 107 mmol/L (98-107); Cholesterol 146 mg/dL (<200); Estimated GFR 59.69 (mL/min/1.73m2); Glucose 97 mg/dL (74-106); HDL Cholesterol 45 mg/dL (40-60); Potassium 4.5 mmol/L (3.5-5.1); Sodium 145 mmol/L (136-145); Total Protein 7.2 g/dL (6.4-8.2); Triglyceride 165 mg/dL (<150)
== END 2020-10-09 03:35 | disposition home or self-care (01) ==
LOC: LBO 03:34
PROVIDERS: PCP Nurse Practitioner; Visit Provider Nurse Practitioner
DX: E78.00 Pure hypercholesterolemia, unspecified (principal); G80.8 Other cerebral palsy
CPT/HCPCS: 36415; 80053; 80061; 85027

== ENCOUNTER 2020-12-17 01:34 | Outpatient (CLI) | payer MEDICAID, SELFPAY ==
--- NOTE | 2020-12-17 08:04 | DI.DEXA_ITS ---
Exam(s) XR DEXA BONE DENSITY W/WO JARED EXAM: XR DEXA BONE DENSITY W/WO JARED CLINICAL HISTORY: F/U OSTEOPOROSIS, M81.0 TECHNIQUE: Routine DEXA evaluation of the lumbar spine, hip, or forearm. COMPARISON: Prior DEXA scan October 2017 FINDINGS: Performed on a [employer] unit. Lateral image: No compression fracture evident. Lumbar Spine total T-score: -3.1 . There is no prior lumbar spine reading available for comparison Hip total T-score:-2.3 . Prior reading October 2017 was -2.1 Independent reading at the left femoral neck yields a T-score of -2.5 Forearm total T-score: -2.0 IMPRESSION: Bone mineral density measures in the osteoporosis range. Fracture risk is high. Note: Any spine fracture indicates 5x risk for subsequent spine fracture and 2x risk for subsequent h ip fracture. World Health Organization criteria for BMD interpretation classify patients: Normal...... T- Score at or above -1.0 Osteopenic... T- Score between -1.0 and -2.5 Osteoporosis... T-Score at or below -2.5
== END 2020-12-17 01:54 ==
PROVIDERS: PCP Nurse Practitioner; Visit Provider Nurse Practitioner
DX: R93.7 Abnormal findings on diagnostic imaging of other parts of musculoskeletal system (principal); M81.0 Age-related osteoporosis without current pathological fracture
CPT/HCPCS: 77080

== ENCOUNTER 2020-12-19 03:23 | Outpatient (CLI) | payer MEDICAID, SELFPAY ==
[2020-12-19 12:30] LABS: ALT 72 U/L (14-59); AST 42 U/L (15-37); Albumin 3.9 g/dL (3.4-5.0); Alkaline Phosphatase 162 U/L (46-116); Bilirubin, Direct 0.2 mg/dL (0.0-0.2); Bilirubin, Total 0.7 mg/dL (0.2-1.0); GGT 81 U/L (5-55); Total Protein 7.2 g/dL (6.4-8.2)
== END 2020-12-19 03:24 | disposition home or self-care (01) ==
LOC: LBO 03:23
PROVIDERS: PCP Nurse Practitioner; Visit Provider Nurse Practitioner
DX: R74.8 Abnormal levels of other serum enzymes (principal); R79.89 Other specified abnormal findings of blood chemistry
CPT/HCPCS: 36415; 80076; 82977

== ENCOUNTER 2021-03-30 00:35 | Outpatient (CLI) | payer MEDICAID, SELFPAY ==
--- NOTE | 2021-03-30 12:41 | DI.MAMMO_ITS ---
Exam(s) MAMMO SCREENING EXAM: MAMMO SCREENING CLINICAL HISTORY: screening. TECHNIQUE: Bilateral full field digital CC and MLO mammographic images were obtained with 3D tomosyn thesis and utilizing computer aided detection (CAD). COMPARISON: Prior mammograms dating back to 2014, the most recent being March 2020. FINDINGS: No new significant radiograph findings in left breast. Towards the lateral aspect of right breast there is an asymmetric density located 6 cm in from the ni pple measuring approximately 10 x 8 millimeters, more evident than on previous studies. Spot sol marie view recommended. There are no malignant-appearing microcalcification groups is region or elsewhere in either breast. There is no significant architectural distortion nor skin thickening-retraction. IMPRESSION: No radiographic evidence of malignancy in the left breast.. Asymmetric density-possible nodule right breast. Spot compression CC view recommended and possible u ltrasound. BI-RADS Category 0 - Assessment Incomplete: Need additional imaging evaluation Breast Density - Category B - Scattered areas of fibroglandular density Breast density Category C or D implies that the patient has dense breast tissue. Dense breast tissue can make it harder to find cancer on a mammogram. Dense breast tissue is also associated with an incr eased risk of breast cancer. This information about the result of the mammogram report was provided to the patient to raise their awareness. Use this report when you speak with the patient about their risks for breast cancer, which includes their family history. At that time, you may recommend additional screening tests (Ultrasoun d or MRI) as these tests may add significant information. A negative radiographic report should not delay biopsy if a dominant or clinically suspicious mass is present. Up to ten percent of cancers are not identified on mammography. A negative report may reinforce clinical impression. Adenosis and dense breasts may obscure an underlying neoplasm. False positive reports average 6 to 10%. Patient will receive a letter notifying them of these results.
== END 2021-03-30 00:55 ==
PROVIDERS: PCP Nurse Practitioner; Visit Provider Nurse Practitioner Family
DX: Z12.31 Encounter for screening mammogram for malignant neoplasm of breast (principal); R92.8 Other abnormal and inconclusive findings on diagnostic imaging of breast
CPT/HCPCS: 77063; 77067

== ENCOUNTER 2021-04-02 02:03 | Outpatient (CLI) | payer MEDICAID, SELFPAY ==
[2021-04-02 14:48] LABS: HCT 43.4 % (36.0-46.0); HGB 14.4 g/dL (11.2-15.7); MCH 30.1 pg (27.0-33.0); MCHC 33.2 % (32.0-36.0); MCV 90.6 fL (80-95); MPV 10.5 fL (8.0-11.0); Platelet Count 240 10^3/uL (130-400); RBC 4.79 10^6/uL (3.93-5.22); RDW 12.1 % (11.7-14.6); WBC 5.98 10^3/uL (4.4-10.8)
[2021-04-02 15:13] LABS: Anion Gap 10.4 mmol/L (3-11); BUN 22 mg/dL (7-18); CO2 26.6 mmol/L (21.0-32.0); CREATININE 0.8 mg/dL (0.55-1.02); Calcium 9.1 mg/dL (8.5-10.1); Chloride 107 mmol/L (98-107); FREE T4 0.79 ng/dL (0.76-1.46); Glucose 82 mg/dL (74-106); Potassium 4.3 mmol/L (3.5-5.1); Sodium 144 mmol/L (136-145); TSH 3.09 uIU/mL (0.36-3.74)
[2021-04-02 15:39] LABS: Vitamin D 25 Total 44.3 ng/mL (30-100)
[2021-04-03 09:28] LABS: Parathyroid Hormone,Intact 88 pg/mL (19-88)
== END 2021-04-02 02:04 | disposition home or self-care (01) ==
LOC: LBO 02:03
PROVIDERS: PCP Nurse Practitioner; Visit Provider Internal Medicine Endocrinology, Diabetes & Metabolism
DX: M81.0 Age-related osteoporosis without current pathological fracture (principal)
CPT/HCPCS: 36415; 80048; 82306; 85027; 83970; 84439; 84443

== ENCOUNTER 2021-04-04 09:50 | Outpatient (REF) | payer MEDICAID, SELFPAY ==
--- OUTSIDE RECORDS SUMMARY | 2021-04-04 09:59 | XMS_ITS | Encounter Summary ---
:1975 Author Care Team Providers Name Role Phone Dr. Laura Hidalgo Primary Care Provider [phone] Dr. Laura Hidalgo Referring Provider [phone] Reason for Visit 6 week f/u Assessment and Plan 1. Deep peroneal nerve lesion Plan: Recommendations were giv en at this time to apply 5% lidocaine patches 12 hours a day on the dorsal area on the right foot over the deep peroneal nerve. The area of application was marked with a pe rmanent marker. Recommendations were given to this patient to return to clinic in 4 we eks and if there is no specific improvement I will discussed neuroplasty of the deep p eroneal nerve. ? lidocaine 5 % topical patc h 2. Injury of cutaneous sensory n erve at ankle and foot level 3. Peripheral nerve entrapment s yndrome 4. Pain in left foot Discussion Note: None recorded.Patient educational handouts: No information available. Plan of Care Reminders Provider Appointments Surgical Or 1 Procedure 60 04/15/2021 7:30AM ? Surgical Ferdinand Alvarez, Procedure 60 04/15/2021 DPM 7:30AM Lab None ? ? recorded. Referral None ? ? recorded. Procedures None ? ? recorded. Surgeries None ? ? recorded. Imaging None ? ? recorded. Medications Name Start Date ? ? albuterol sulfate HFA 90 mcg/actuation aerosol inhaler 10/15/2020 Inhale 2 puffs every 4 hours by inhalation route as n eeded. amitriptyline 50 mg tablet ? TAKE ONE TABLET BY MOUTH EVERY EVENING Antacid (calcium carbonate) 200 mg calcium (500 mg) ch ewable tablet 10/15/2020 Take 1 tablet every day by oral route. atorvastatin 20 mg tablet ? TAKE 1 TABLET BY MOUTH EVERY EVENING azithromycin 250 mg tablet 10/15/2020 baclofen 10 mg tablet ? TAKE 1 TABLET BY MOUTH THREE TIMES DAILY estradiol 0.01% (0.1 mg/gram) vaginal cream ? INSERT 1 GRAM VAGINALLY ONCE DAILY FOR 2 WEEKS THEN T WICE WEEKLY fluticasone propionate 50 mcg/actuation nasal spray,[place]field spension ? SHAKE LIQUID AND USE 2 SPRAYS IN EACH NOSTRIL DAILY melatonin 10 mg capsule 10/15/2020 once a day at hs melatonin 10 mg sublingual tablet ? TAKE 1 TABLET BY MOUTH AT BEDTIME NEEDED FOR SLEEP meloxicam 7.5 mg tablet ? TAKE 1 TABLET BY MOUTH DAILY multivitamin 10/15/2020 omeprazole 40 mg capsule,delayed release ? TAKE 1 CAPSULE BY MOUTH DAILY rizatriptan 10 mg tablet ? TAKE 1 TABLET BY MOUTH TWICE DAILY NEEDED topiramate 25 mg tablet ? TAKE 1 TABLET BY MOUTH TWICE DAILY valacyclovir 500 mg tablet ? TAKE 1 TABLET BY MOUTH DAILY Medications Administered None recorded. Vitals Height 4 ft 10 in Results Lab Results None recorded. Allergies Code Code System Name Reaction Severity Onset 4450 RxNorm Fluconazole ? ? ? Sulfa (Sulfonamide ? ? ? Antibiotics) 73741 RxNorm Trimethoprim ? ? ? Problems Name Status Onset Date Source ? Herpes Simplex Active 08/12/2020 ? Hypercholesterolemia Active 08/12/2020 ? History of Drug Abuse Active 08/12/2020 ? Depressive Disorder Active 08/12/2020 ? Obstructive Sleep Apnea Syndrome Active 08/12/2020 ? Sleep Related Bruxism Active 08/12/2020 ? Hemiparesis Active 08/12/2020 ? Cerebral Palsy Active 08/12/2020 ? Migraine Active 08/12/2020 ? Retinal Detachment Active 08/12/2020 ? Hemianopia Active 08/12/2020 ? Cerebrovascular Accident Active 08/12/2020 ? Asthma Active 08/12/2020 ? Gastroesophageal Reflux Disease Active 08/12/2020 ? Gallstone Active 08/12/2020 ? Kidney Stone Active 08/12/2020 ? Endometriosis (Clinical) Active 08/12/2020 ? Foot Callus Active 08/12/2020 ? Osteoporosis Active 08/12/2020 ? Urinary Incontinence Active 08/12/2020 ? Falls Active 08/12/2020 ? History of Alcohol Abuse Active 08/12/2020 ? Pain in Left Foot Active 08/12/2020 ? Pain of Left Ankle Joint Active 08/12/2020 ? Swelling of Bilateral Lower Limbs Active 08/12/2020 ? Equinus Contracture of the Ankle Active 09/03/2020 ? Tightness of Left Gastrocnemius Muscle Active ? 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 Deep Peroneal Nerve Lesion Active 01/12/2021 ? Peripheral Nerve Entrapment Syndrome Active 01/12/2021 ? Injury of Cutaneous Sensory Nerve at Ankle Active 01/12 ? and Foot Level Procedures Date Name Performed by ? 10/15/2020 Excision, Lesion of Tendon Sheath or Inf ormation not available Capsule, Leg/ankle (Surg) 06/06/2017 Laparotomy Information not avai lable 06/06/2016 Cholecystectomy Information not avai lable 06/06/2014 Release of Trigger Finger Information no t available Notes: left hand 06/06/2003 Hysterectomy Information not avai lable ? Insertion of Renal Artery Stent Informat ion not available ? Oophorectomy Information not avai lable Notes: bilat ? Hand Surgery Information not avai lable Notes: left hand Notes: Achilles tendon lengtheni ng left leg 11 years ago kidney stone removal retinal detachment left eye Vaccine List Vaccine Type COVID-19, mRNA, LNP-S, PF, 100 mcg/0.5 m L dose 08/31/2020?0.5 mL 09/28/2020?0.5 mL Social History Tobacco Smoking Status Former Smoker What is your level of alcohol None Notes: sober 18 years consumption? Have you travelled outside of [facility] in the past 14 days? Have you received the covid vaccine Y this year? (If so, document vaccination in Vaccine Module in [place]) Have you experienced any of the N following symptoms in the past 48 hours? Fever/Chills, Cough, Shortness of breath or difficulty breathing, fatigue, muscle or body aches, headache, new loss of taste or smell, sore throat, congestion or runny nose, nausea or vomiting and/or diarrhea Are you able to care for yourself? Y Are you currently waiting on results N of a COVID-19 test? What is your code status? 0 Within the past 14 days, have you been N in close physical contact (6 feet or closer for a cumulative total of 15 minutes) with anyone that is known to have laboratory-confirmed COVID-19? OR Anyone who has any symptoms consistent with COVID-19? Are you isolating or quarantining N because you may have been exposed to a person with COVID-19 or are worried that you may be sick with COVID-19? What was the date of your most recent 03/26/2021 tobacco screening? Do you have an advanced directive? Y Do you use any illicit or recreational N drugs? How many years have you smoked 3 Notes: a pack a day,quit 12 tobacco? years ago Functional Status Unknown. Past Encounters 02/24/2021 Deep Peroneal Nerve Lesion; Injury of Cu taneous Sensory Nerve at Ankle and Foot Level; Peripheral Nerve Entrapment Syndrome; Pain in Left Foot Ferdinand Alvarez, DPM: [address] [place] [address], Ph. History of Present Illness None recorded. Review of Systems ? Podiatry ROS Reported By: Patient Constitutional: Constitutional: no fever, no night sweats, no significant weight loss Integumentary: Skin: No itching (pruritus), No skin lesions, no abnormal mole, no jaundice, No rednes s (erythema), no rash, No bruising, No laceration, No insect bites Musculoskeletal: Musculoskeletal: Not related to trauma or previous injury, arthralgias/joint pain, swel ling in the extremities, joint swelling, muscle weakness, G ait Abnormality Neurologic: Neurologic: no loss of consc iousness, no numbness, no seizures, no dizziness, no h eadaches, no tremor, no shooting pain, no paresthesia's, no t Ingling, muscle weakness Hematologic/Lymphatic: Hematologic/Lymphatic no swo llen glands, no bruising, no excessive bleeding, no exces sive bleeding Allergic/Immunologic: Allergy/Immunologic: no seas onal allergies Notes: Yuli was seen for follow-u p for left foot pain. She currently is very happy util izing the Sony brace on the left ankle and foot. She has elaien re neuropathic pain on the dorsal surface of the left foot lisette t is mediated by deep peroneal nerve injury. The 4% lidocai ne with Aspercreme is provided no symptomatic relief to her do rsal left foot pain. Physical Exam ? Notes: Constitutional: well develop ed, appears stated age, well nourished, no acute distress, alert and oriented to time, place and person, weight-overweight

Psy chiatric: Mental status-mood and affect normal, behavior normal,cognition an d thought content normal, fund of knowledge is intact, attention span and a bility to concentrate is normal, able to articulate well with normal speech and language

Respiratory: Quiet and easy respiratory effort, momo st-symmetrical expansion, no respiratory distress, no adventitious sounds, no s hortness of breath, respiration rate of 14

Vascular:
D orsalis pedis and posterior tibial pulses are full and palpable bilaterally. Th e feet are warm to touch with 1-2 second vascular filling time at the digit le vels. Digital hair is present bilaterally. No venous varicosities are note d on the lower legs, ankles or feet. No ischemia is noted within the legs or pedal structures.

Dermatologic: There is no evidence of any breaks in sk in integrity or skin lesions on the lower legs, ankles or feet. There is nor mal skin texture and turgor on all extremities surfaces. There is no eviden ce of cellulitic or lymphangitic activities on the digits, feet, ankles or lowe r legs.

Neurologic: Alert and oriented times 3, concentrating abili ty not decreased, symmetrical bulk, strength and tone in the lower extremitie s, coordination is normal.
Sensory examination-positive provoca tion with strong distal Tinel's sign to the distal end of the hallux and second toe on the left foot and percussion of the deep peroneal nerve on the dorsal tarsal joints of the left foot at the area of compression. No pain is medi ated along the tibial nerve system in the plantar foot and there is no evidenc e of intermetatarsal neuroma formation.
Motor examination-anterior extenso r paralysis left leg with dropfoot deformity, no dorsiflexion available due t o extensor muscle paralysis left leg. Flexor muscles are weakened but fun ctioning in the left leg, quadriceps and hamstrings function normally in the left lower extremity.

Musculoske letal: Continue tightness in the gastroc soleus muscle group on the left leg although this has improved. Heel pain is still present although is improved over her preoperative state. The patient continues to stretch on a da rodrigo basis.

Gait: Mildly antalgic left foot gait pattern<div>
Th is clinic note/operative note was created using [employer] software. The note was reviewed by myself for primary content. There m ay be multiple small syntactical discrepancies and errors due to the voice anna gnition limitations of the software-Dr. Alvarez.
</div>
--- OUTSIDE RECORDS SUMMARY | 2021-04-04 09:59 | XMS_ITS ---
:1975 Author Care Team Providers Name Role Phone DR. CAROLYN MAC Primary Care Provider [phone] DR. CAROLYN MAC Referring Provider [phone] Allergies Code Code System Name Reaction Severity Status Onset 4450 RxNorm Fluconazole ? ? Active ? Sulfa ? ? Active ? (Sulfonamide Antibiotics) 36863 RxNorm Trimethoprim ? ? Active ? Medications Name Status Start Date Stop Date ? ? albuterol sulfate HFA 90 mcg/actuation aerosol inhaler Active 10/15/2020 Not available Inhale 2 puffs every 4 hours by inhalation route as needed. amitriptyline 50 mg tablet Active ? Not a vailable TAKE ONE TABLET BY MOUTH EVERY EVENING Antacid (calcium carbonate) 200 mg calcium (500 mg) chewable tablet Active 10/15/2020 Not available Take 1 tablet every day by oral route. aspirin 325 mg tablet Completed 10/15/2020 03/26/2021 Take 1 tablet every day by oral route. atorvastatin 20 mg tablet Active ? Not av ailable TAKE 1 TABLET BY MOUTH EVERY EVENING azithromycin 250 mg tablet Active 10/15/2020 Not a vailable baclofen 10 mg tablet Active ? Not availa ble TAKE 1 TABLET BY MOUTH THREE TIMES DAILY benzonatate 100 mg capsule Completed 10/15/202002/24 TK 1 C PO TWO TO THREE TIMES DAILY PRF COGUH cyanocobalamin (vitamin B-12) 1,000 mcg capsule Completed ? 08/13/2020 Take 1 capsule every day by oral route. cyclobenzaprine 5 mg tablet Completed 10/15/202002/05 TK 1 T PO TID PRF MUSCLE SPASM estradiol 0.01% (0.1 mg/gram) vaginal cream Active ? Not available INSERT 1 GRAM VAGINALLY ONCE DAILY FOR 2 WEEKS THEN TWICE WEEKL Y famotidine 20 mg tablet Completed ? 09/04/19 21 TK 1 T PO BID fluticasone propionate 50 Active ? Not av ailable mcg/actuation nasal spray,suspension hydroxyzine HCl 25 mg tablet Completed ? 03/2021 Take 1 tablet twice a day by oral route. Lidoderm 5 % topical patch Completed ? 03/26 loratadine 10 mg tablet Completed ? 09/04/19 Take 1 tablet every day by oral route. melatonin 10 mg capsule Active 10/15/2020 Not avai lable once a day at hs melatonin 10 mg sublingual tablet Active ? Not available TAKE 1 TABLET BY MOUTH AT BEDTIME NEEDED FOR SLEEP meloxicam 7.5 mg tablet Active ? Not avai lable TAKE 1 TABLET BY MOUTH DAILY methylprednisolone 4 mg tablets in a dose pack Completed ? 09/03/2020 FPD multivitamin Active 10/15/2020 Not available naproxen 500 mg tablet Completed ? Take 1 tablet twice a day by oral route as needed. omeprazole 40 mg capsule,delayed release Active ? Not available TAKE 1 CAPSULE BY MOUTH DAILY oseltamivir 75 mg capsule Completed 10/15/20202020 TK 1 C PO BID FOR 5 DAYS oxycodone-acetaminophen 5 mg-325 mg tablet Completed ? 11/12/2020 TAKE 1 TABLET BY MOUTH EVERY 6 HOURS FOR 5 DAYS rizatriptan 10 mg tablet Active ? Not francisco j ilable TAKE 1 TABLET BY MOUTH TWICE DAILY NEEDED topiramate 25 mg tablet Active ? Not avai lable valacyclovir 500 mg tablet Active ? Not a vailable TAKE 1 TABLET BY MOUTH DAILY Problems Name Status Onset Date Source ? [...] Information not avai lable Notes: left hand 08/11/2020 XR, Foot, 3 or More View [facility] - Radiology [address] [place], [place] [id number] (Work Place) 08/12/2020 XR, Ankle, [address] [facility] - Radiology [address] [place] [address] (Work Place) Notes: Achilles tendon lengtheni ng left leg 11 years ago kidney stone removal retinal detachment left eye Results Lab Results Date Name Specimen Result Interpretation Description Value Range Status Address ? 08/18/2020 ESR (Erythrocyte ? No observation ? ? ? [facility] recorded. [place] Rate), Blood [facility]: [address] [place] [address] D , [place] [facility] 08/18/2020 Uric Acid, Serum ? No observation ? ? ? [facility] or Plasma recorded. [facility]: [address], [facility] 08/18/2020 C-reactive ? No observation ? ? ? [facility] Protein, recorded. Josephine nayeli [facility]: [facility] D r, [facility] Past Encounters 03/26/2021 Deep Peroneal Nerve Lesion; Injury of Cu taneous Sensory Nerve at Ankle and Foot Level; Peripheral Nerve Entrapment Syndrome; Pain in Left Foot MAKAYLA BurroughsM: [address] [place] [phone], Ph. 02/24/2021 Deep Peroneal Nerve Lesion; Injury of Cu taneous Sensory Nerve at Ankle and Foot Level; Peripheral Nerve Entrapment Syndrome; Pain in Left Foot Ferdinand Alvarez DPM: [address] [place] [phone], Ph. 01/12/2021 Deep Peroneal Nerve Lesion; Injury of Cu taneous Sensory Nerve at Ankle and Foot Level; Peripheral Nerve Entrapment Syndrome; Pain in Left Foot Ferdinand Alvarez DPM: [address] [place] [phone], Ph. 11/12/2020 Pain of Left Ankle Joint; Edema of Foot Ferdinand Alvarez DPM: [address] [place] [phone], Ph. 10/29/2020 Equinus Contracture of the Ankle Ferdinand Alvarez DPM: [address] [place] [phone], Ph. 09/23/2020 Equinus Contracture of the Ankle; Hemipa resis; Insertional Achilles Tendinopathy; Pain in Left Foot; Tightness of Left Gastrocnemius Muscle Ferdinand Alvarez DPM: [address] [place] [phone], Ph. 09/03/2020 Pain in Left Foot; Insertional Achilles Tendinopathy; Equinus Contracture of the Ankle; Tightness of Left Gastrocnemius Muscle Ferdinand Alvarez DPM: [address] [place] [phone], Ph. 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 Social History Tobacco Smoking Status Former Smoker Vaccine List Vaccine Type COVID-19, mRNA, LNP-S, PF, 100 mcg/0.5 m L dose 08/31/2020?0.5 mL 09/28/2020?0.5 mL Plan of Care Reminders Provider Appointments None ? ? recorded. Lab None ? ? recorded. Referral None ? ? recorded. Procedures None ? ? recorded. Surgeries None ? ? recorded. Imaging None ? ? recorded. Vitals 03/26/2021 09:30AM Medication Evaluation Height 147.32 cm 02/24/2021 03:30PM FOLLOW UP Height 147.32 cm 01/12/2021 09:00AM FOLLOW UP Height 147.32 cm 11/12/2020 11:30AM Post Op Height Weight BMI Blood Pressure 147.32 cm 102.51 kg 47.2 kg/m2 10/29/2020 01:00PM Post Op Height Weight BMI Blood Pressure 147.32 cm 102.51 kg 47.2 kg/m2 08/13/2020 02:00PM NEW PATIENT Weight BMI Blood Pressure
--- OUTSIDE RECORDS SUMMARY | 2021-04-04 09:59 | XMS_ITS | Encounter Summary ---
:1975 Author Care Team Providers Name Role Phone Dr. Laura Hidalgo Primary Care Provider [phone] Dr. Laura Hidalgo Referring Provider [phone] Reason for Visit f/u brace/ L Ankle pain Assessment and Plan 1. Deep peroneal nerve lesion Plan: Recommendations were giv en at this time to apply Aspercreme with 4% lidocaine 4-5 times per day on the dorsa l surface of the left foot and second digit. Follow-up in clinic in 6 weeks and if no improvement is noted will consider further care for this nerve entrapment syndrome. 2. Injury of cutaneous sensory n erve at ankle and foot level 3. Peripheral nerve entrapment s yndrome 4. Pain in left foot Plan: Recommendations were giv en for continued use of the Sony brace on a daily basis, I have recommended [employer] tennis shoes for a better fit for the brace and I recommended continued daily stretc renetta of the gastrocnemius muscle. Discussion Note: None recorded.Patient educational handouts: No [...] Code Code System Name Reaction Severity Onset 9720 RxNorm Fluconazole ? ? ? Sulfa (Sulfonamide ? ? ? Antibiotics) 79095 RxNorm Trimethoprim ? ? ? Problems Name [...] years consumption? Have you travelled outside of [facility] in the past 14 days? Have you received the covid vaccine Y this year? (If so, document vaccination in Vaccine Module in [place]) Have you experienced any of the N [...] years ago Functional Status Unknown. Past Encounters 01/12/2021 Deep Peroneal Nerve Lesion; Injury of Cu taneous Sensory Nerve at Ankle and Foot Level; Peripheral Nerve Entrapment Syndrome; Pain in Left Foot Ferdinand Alvarez DPM: [address] [place] [phone], Ph. History of Present Illness Note: Reed was seen today for further evaluation and care for left foot pain. She has been fit with her Sony brace 1 week ago and is able to wear these in the new pair of sneakers. She still has painin the left foot and heel although this is improved. She states that this is the most comfortable brace that she has ever had over the past 10 years. She now describes a new onset of neuropathic pain that is moderately severe over the dorsal surface of the left tarsal joints that this emanates into the dorsal left second digit with weightbearing activities and with movement of the foot and ankle. Sheendorses no specific history of injury or trauma to her foot. Review of Systems ? Podiatry ROS Reported [...] bleeding Allergic/Immunologic: Allergy/Immunologic: no seas onal allergies Physical Exam ? Notes: Constitutional: well develop [...] lower extremitie s, coordination is normal.
Sensory examination-grossly intact o n the L4-S1 dermatomes bilaterally. Neuropathic pain with paresthesias noted to examination of the deep peroneal nerve over the anterior ankle, dorsal t arsal joints and dorsal medial second digit of the left foot. No pain is noted along the superficial peroneal or tibial nerve systems.
Motor examinatio n-anterior extensor paralysis left leg with dropfoot deformity, no dorsi flexion available due to extensor muscle paralysis left leg. Flexor muscles are weakened but functioning in the left leg, quadriceps and hamstrings fu nction normally in the left lower extremity.
Coordination a nd tremors-no intentional or resting tremors are noted, no adventitious movem ent noted
Muscle fasciculations-no fasciculations noted in the lower extremity muscles
Atrophy-no atrophy noted in the intrinsic muscl es of the feet, lower legs or thighs

Musculoskeletal: Imp roving insertional tendinopathy of the Achilles tendon, gastrocnemius tightn ess with 10-15 degrees dorsiflexion of the left foot with the knee extended. There is lateral based foot pain due to compensation with walking an d weightbearing and gait abnormality secondary to her cerebral palsy. There is paralysis of the extensor muscle groups and lateral foot position on lucas ghtbearing increasing her pressure on the lateral foot. There is no internal p ain within the ankle, subtalar and midtarsal joints.

Gait: Mildly antalgic left foot gait pattern<div>
This clinic note/operative note w as created using [employer] voice recognition software. The no te was reviewed by myself for primary content. There may be multiple small syntactical discrepancies and errors due to the voice recognition limitation s of the software-Dr. Alvarez.
</div>
--- OUTSIDE RECORDS SUMMARY | 2021-04-04 09:59 | XMS_ITS | Encounter Summary ---
:1975 Author Care Team Providers Name Role Phone Dr. Laura Hidalgo Primary Care Provider [phone] Dr. Laura Hidalgo Referring Provider [phone] Reason for Visit 1 month follow up Assessment and Plan 1. Deep peroneal nerve lesion Plan: I had a discussion with the patient today regarding options of care for this specific deformity. Conservativ e care was discussed and the patient would like to proceed with interventional care for correction. This would include neuroplasty with nerve wrapping of the d eep peroneal nerve on the dorsal surface of the left foot at its entrapment site. I have discussed the possibility of infection, delayed healing of the incision or deepe r tissues, chronic swelling, numbness at the incision site and weakness in the periph eral areas. After all pertinent questions were answered that were posed by the michael cross a surgical consent form was signed. Postoperative pain control with ibuprofe n or Tylenol will be adequate for this procedure. ? neuroplasty, hand or foot (SURG) 2. Injury of cutaneous sensory n erve [...] recorded. Procedures None ? ? recorded. Surgeries Neuroplasty, [facility] Hand or Foot (SURG) 03/26/2021 Or Imaging None ? ? recorded. Medications Name [...] ? Sulfa (Sulfonamide ? ? ? Antibiotics) 73762 RxNorm Trimethoprim ? ? ? Problems Name [...] years consumption? Have you travelled outside of [facility] in the past 14 days? Have you received the covid vaccine Y this year? (If so, document vaccination in Vaccine Module in [facility]) Have you experienced any of the N [...] years ago Functional Status Unknown. Past Encounters 03/26/2021 Deep Peroneal Nerve Lesion; Injury of Cu taneous Sensory Nerve at Ankle and Foot Level; Peripheral Nerve Entrapment Syndrome; Pain in Left Foot Ferdinand Alvarez DPM: [address] [place] [address], Ph. 02/24/2021 Deep Peroneal Nerve Lesion; Injury of Cu taneous Sensory Nerve at Ankle and Foot Level; Peripheral Nerve Entrapment Syndrome; Pain in Left Foot MAKAYLA BurroughsM: [address] [place] [address], Ph. History of Present Illness Note: Yuli was seen today for ongoing care for moderate to severe dorsal left foot pain. The topical 5% lidocaine medication has proved completely ineffective in alleviating her discomfort. Her pain in fact has increased over the past month with all weightbearing and nonweightbearing positioning of the foot. Review of Systems ? Podiatry ROS [...] no dizziness, no h eadaches, no tremor, muscle weakness, shooting pain, par esthesia's, tingling Hematologic/Lymphatic: Hematologic/Lymphatic no swo llen glands, no [...] well with normal speech and language

Respiratory: Lung patricia clear to auscultation in all 4 patricia, no rhonchi, no rales, no wheezing, quiet and easy res piratory effort, chest-symmetrical expansion, no respiratory distress, no adv entitious sounds, no shortness of breath, respiration rate of 12
<b r>Cardiovascular: Normal S1 and S2 cardiac sounds, regular rhythm and r ate,
Dorsalis pedis and posterior tibial pulses are full and palpable bilate rally. The feet are warm to touch with 1-2 second vascular filling time at the digit levels. Digital hair is present bilaterally. No venous varic osities are noted on the lower legs, ankles or feet. No ischemia is noted w ithin the legs or pedal structures.

Dermatolo gic: There is no evidence of any breaks in skin integrity or skin lesions on the lower legs, ankles or feet. There is normal skin texture and turgor on a ll extremities surfaces. There is no evidence of cellulitic or lymphangitic a ctivities on the digits, feet, ankles or lower legs.

Neurologic: Luna rt and oriented times 3, concentrating ability not decreased, symmetrical bulk, strength and tone in the lower extremities, coordination is normal.
S ensory examination-grossly intact on the L4-S1 dermatomes bilaterally. Neur opathic pain with paresthesias and significant provocation noted to examina tion of the deep peroneal nerve over the anterior ankle, dorsal tarsal joints and dorsal medial second digit of the left foot. No pain is noted along the s uperficial peroneal or tibial nerve systems.
Motor examinatio [...] clinic note/operative note w as created using Overwatch voice recognition software. The no te was reviewed by myself for primary content. There may be multiple small syntactical discrepancies and errors due to the voice recognition limitation s of the software-Dr. Alvarez.
</div>
[2021-04-04 11:29] LABS: Total Volume 2200 ml
[2021-04-06 09:34] LABS: Calcium Urine 6.8 mg/dL (See Note); Calcium Urine 24 hr 150 mg/24hrs (100-300); Timed Urine Volume 2200 mL
== END 2021-04-04 09:51 | disposition home or self-care (01) ==
LOC: LBN 09:50
PROVIDERS: PCP Nurse Practitioner; Visit Provider Internal Medicine Endocrinology, Diabetes & Metabolism
DX: M81.0 Age-related osteoporosis without current pathological fracture (principal)
CPT/HCPCS: 81050; 82340; 82570

== ENCOUNTER 2021-04-10 02:17 | Outpatient (CLI) | payer MEDICAID, SELFPAY ==
--- NOTE | 2021-04-10 09:14 | DI.MAMMO_ITS ---
Exam(s) MAMMO SCREEN CALL BACK UNI EXAM: MAMMO SCREEN CALL BACK UNI CLINICAL HISTORY: FU MAMMO ASYMMETRIC DENSITY RT SIDE TECHNIQUE: Spot compression views and tomographic imaging were performed. COMPARISON: 30 March 2021 and mammograms back to 2014. FINDINGS: No suspicious masses or suspicious microcalcifications are seen. No persistent abnormality is seen on the additional views performed. The findings are consistent wit h overlying fibroglandular tissue. There has been no significant change from prior exams. IMPRESSION: BI-RADS Category 1, Negative Yearly screening mammography is recommended. Breast Density - Category B, scattered fibroglandular densities.
== END 2021-04-10 02:37 ==
PROVIDERS: PCP Nurse Practitioner; Visit Provider Nurse Practitioner Family
DX: R92.8 Other abnormal and inconclusive findings on diagnostic imaging of breast (principal)
CPT/HCPCS: 77063; 77067

== ENCOUNTER 2021-04-10 03:13 | Outpatient (CLI) | payer MEDICAID, SELFPAY ==
[2021-04-10 10:45] LABS: Source Nasal/Nares
[2021-04-10 15:01] LABS: COVID-19 PCR Negative (Negative)
== END 2021-04-10 03:14 | disposition home or self-care (01) ==
LOC: LBO 03:13
PROVIDERS: PCP Nurse Practitioner; Visit Provider Podiatrist Foot & Ankle Surgery
DX: Z20.822 Contact with and (suspected) exposure to COVID-19 (principal); Z01.818 Encounter for other preprocedural examination
CPT/HCPCS: 87635

== ENCOUNTER 2021-07-31 10:39 | Outpatient (RCR) | payer MEDICAID, SELFPAY ==
[2021-07-31 11:06] LABS: BUN 17 mg/dL (7-18); CREATININE 0.9 mg/dL (0.55-1.02); Calcium 9.6 mg/dL (8.5-10.1)
== END 2021-08-03 23:59 | disposition home or self-care (01) ==
LOC: INF 10:39
PROVIDERS: PCP Nurse Practitioner; Visit Provider Internal Medicine Endocrinology, Diabetes & Metabolism
DX: M81.0 Age-related osteoporosis without current pathological fracture (principal)
CPT/HCPCS: 36415; 84520; 82310; 82565

== ENCOUNTER 2021-09-24 17:09 | Outpatient (CLI) | payer MEDICAID, SELFPAY ==
--- NOTE | 2021-09-24 15:15 | DI.RAD_ITS ---
Exam(s) XR SHOULDER LT COMPLETE 2+V EXAM: XR SHOULDER LT COMPLETE 2+V CLINICAL HISTORY: pain s/p injury this morning. M25.512. TECHNIQUE: 2D digital imaging was performed. COMPARISON: CR LEFT SHOULDER COMPLETE from 04/06/2016 FINDINGS: 3 views No evidence of fracture or dislocation or abnormal soft tissue calcifications. Subacromial space is not diminished. No degenerative changes in the glenohumeral and AC joints. Bone density is normal. No osseous lesions. IMPRESSION: No significant radiographic findings in the left shoulder. DATA REPOSITORY: RADIATION DOSE DELIVERED:
== END 2021-09-24 17:29 ==
PROVIDERS: PCP Nurse Practitioner; Visit Provider Nurse Practitioner
DX: M25.512 Pain in left shoulder (principal)
CPT/HCPCS: 73030

== ENCOUNTER 2022-02-12 01:45 | Outpatient (CLI) | payer MEDICAID, SELFPAY ==
[2022-02-12 09:46] LABS: ALT 47 U/L (14-59); AST 24 U/L (15-37); Albumin 3.5 g/dL (3.4-5.0); Alkaline Phosphatase 111 U/L (46-116); Anion Gap 6.9 mmol/L (3-11); BUN 20 mg/dL (7-18); Bilirubin, Total 0.6 mg/dL (0.2-1.0); CO2 30.1 mmol/L (21.0-32.0); CREATININE 0.9 mg/dL (0.55-1.02); Calcium 8.8 mg/dL (8.5-10.1); Calculated LDL 91 mg/dL (<100); Chloride 107 mmol/L (98-107); Cholesterol 162 mg/dL (<200); Estimated GFR 79.35 (mL/min/1.73m2); Glucose 93 mg/dL (74-106); HDL Cholesterol 55 mg/dL (40-60); Potassium 3.6 mmol/L (3.5-5.1); Sodium 144 mmol/L (136-145); Total Protein 7.3 g/dL (6.4-8.2); Triglyceride 83 mg/dL (<150)
[2022-02-14 14:06] LABS: HIV-1/2 Ag & Ab Screen Negative (Negative)
[2022-02-15 10:01] LABS: Hepatitis C Ab w Rflx HCV PCR Negative (Negative)
== END 2022-02-12 01:46 | disposition home or self-care (01) ==
LOC: LBO 01:45
PROVIDERS: PCP Nurse Practitioner; Referring Provider Nurse Practitioner; Visit Provider Nurse Practitioner
DX: Z11.59 Encounter for screening for other viral diseases (principal); E78.00 Pure hypercholesterolemia, unspecified; Z11.4 Encounter for screening for human immunodeficiency virus [HIV]
CPT/HCPCS: 36415; 80053; 80061; 86803; 87389

== ENCOUNTER → 2022-04-05 01:52 | Outpatient (CLI) | payer MEDICAID, SELFPAY ==
--- NOTE | 2022-04-05 06:45 | DI.MAMMO_ITS ---
Exam(s) MAMMO SCREENING EXAM: MAMMO SCREENING CLINICAL HISTORY: screening,Z12.39 TECHNIQUE: Mammograms were interpreted according to the usual protocol including computer analysis w [employer] CAD system, tomosynthesis and C-view imaging. COMPARISON: 2014 through 2020 FINDINGS: The breasts are composed of scattered fibroglandular densities, Breast Density category B. No suspicious masses or suspicious microcalcifications are seen. No skin thickening or abnormal axillary lymph nodes are seen. There has been no significant change from prior exams. IMPRESSION: BI-RADS Category 1, Negative mammogram Yearly screening mammography is recommended. Breast Density - Category B, scattered fibroglandular densities. A negative radiographic report should not delay biopsy if a dominant or clinically suspicious mass is present. Up to ten percent of cancers are not identified on mammography. A negative report may reinforce clinical impression. Adenosis and dense breasts may obscure an underlying neoplasm. False positive reports average 6 to 10%. Patient will receive a letter notifying them of these results.
== END ==
PROVIDERS: PCP Nurse Practitioner; Visit Provider Nurse Practitioner
DX: Z12.31 Encounter for screening mammogram for malignant neoplasm of breast (principal)
CPT/HCPCS: 77063; 77067

== ENCOUNTER 2022-08-19 07:40 | Day surgery (SDC) | payer MEDICAID, SELFPAY ==
[2022-08-19 07:45] VITALS: BP 111/74; PULSE 90; RESP 18; TEMP 36; O2SAT 95
--- NOTE | 2022-08-19 08:20 | W.ANESPRE ---
General Info Date of Service Date Performed: 08/19/22 Height: 4 ft 10 in Weight: 100.9 kg Body Mass Index (BMI): 46.5 Surgical Procedure: Operation Date: 08/19/22 09:05 Proposed Procedure Side Surgeon p Colonoscopy/Gastroscopy Tab Cervantes MD Meds Allergies and Home Medications Allergies Allergy/AdvReac Type Severity Reaction Status Date / Time fluconazole Allergy Severe SEIZURE Verified 08/19/22 08:07 Sulfa (Sulfonamide Allergy Severe SEIZURE Verified 08/19/22 08:07 Antibiotics) trimethoprim Allergy Intermediate UNKNOWN Verified 08/19/22 08:07 Home Medication Medication Instructions Recorded baclofen 10 mg tablet 10 mg PO TID 01/29/13 amitriptyline 50 mg tablet 50 mg PO HS 02/13/13 calcium carbonate 200 mg calcium 500 mg CH DAILY 02/13/13 (500 mg) chewable tablet multivitamin (Daily Multi-Vitamin 1 ea PO DAILY 02/13/13 tablet) meloxicam 7.5 mg tablet 7.5 mg PO DAILY #30 tab-caps 07/29/15 aspirin 325 mg tablet 325 mg PO DAILY 02/21/17 cyanocobalamin (vitamin B-12) 1,000 mcg PO DAILY 02/21/17 1,000 mcg tablet fluticasone propionate 50 2 spray intranasal DAILY #15.8 mL 10/02/20 mcg/actuation nasal spray,suspension (Flonase Allergy Relief) Elder Rousseau PO 03/09/21 omeprazole 40 mg capsule,delayed 40 mg PO DAILY ##90 05/21/21 release cholecalciferol (vitamin D3) 1,250 1,250 mcg PO QWEEK 05/25/21 mcg (50,000 unit) capsule rizatriptan 10 mg tablet See Rx Instructions PO .COMPLEX #7 07/20/21 tabs topiramate 25 mg tablet 25 mg PO BID #180 tabs 07/20/21 hearing aids #1 ea 10/02/21 riboflavin (vitamin B2) 100 mg 200 mg PO BID 01/06/22 tablet albuterol sulfate 90 mcg/actuation 2 puff inhalation QID PRN 02/02/22 aerosol inhaler (ProAir HFA) shortness of breath or wheezing #18 grams magnesium oxide 400 mg PO DAILY 05/11/22 melatonin 10 mg capsule 10 mg PO HS PRN sleep #90 caps 01/30/23 valacyclovir 500 mg tablet 500 mg PO DAILY #90 tab-caps 07/26/22 (Valtrex) bisacodyl 5 mg tablet,delayed 5 mg PO ONCE #4 tabs 07/29/22 release (Dulcolax (bisacodyl)) polyethylene glycol 3350 17 17 g PO ONCE #238 grams 07/29/22 gram/dose oral powder triamcinolone acetonide 0.1 % 1 applic topical BID PRN rash 08/03/22 topical cream abdomen #30 grams atorvastatin 20 mg tablet See Rx Instructions .Route 08/11/22 .COMPLEX #90 tabs Current Visit Medications: Current Medications Generic Name Dose Route Start Last Admin Trade Name Freq PRN Reason Stop Dose Admin Ringer's Solution 1,000 mls @ 80 mls/hr 08/19/22 06:00 IV 09/17/22 23:59 INFUSION JENNIFER IV Miscellaneous Supplies 1 each 08/19/22 06:00 Iv Access IV 09/17/22 23:59 DIRECTED JENNIFER Sodium Chloride 0 ml 08/19/22 06:00 Normal Saline Flush 10 Ml Syr IV 09/17/22 23:59 PRN PRN Sodium Chloride 0 ml 08/19/22 06:00 Normal Saline 10 Ml Vial IJ 09/17/22 23:59 DIRECTED PRN Sterile Water 0 ml 08/19/22 06:00 Water,Injection,Sterile 10 Ml Vial IJ 09/17/22 23:59 DIRECTED PRN PFSH Active Problems Active Problems: Problem Status Onset Code Biloma following surgery T81.89XA, K66.8 NATALIIA (obstructive sleep apnea) G47.33 Acquired absence of both cervix and uterus 01/03/12 Z90.710 Acute retinal necrosis of left eye 04/18/14 H30.132 Afferent pupillary defect of left eye 08/15/14 H21.562 Asthma 04/17/14 J45.909 Blindness of left eye 08/15/14 H54.40 Cerebral palsy, infantile hemiplegia 04/17/14 G80.8 HSV infection 02/05/14 B00.9 Hearing loss, neural, unilateral 02/16/16 H90.5 Herpes simplex viremia 04/17/14 B00.7 Migraine 02/05/14 G43.909 Osteoporosis 04/17/14 M81.0 Patellofemoral instability of both knees with pain 03/15/17 M25.361, M25.362, M25.561, M25.562 Transient visual disturbance, right 08/15/14 H53.9 Trigger little finger of left hand 04/16/15 M65.352 Body mass index 40.0-44.9, adult Z68.41 Intravenous drug abuse 04/17/14 F19.10 Endometriosis 04/17/14 N80.9 Depressive disorder 04/17/14 F32.9 Calculus of kidney 01/06/09 N20.0 Bulimia 04/18/14 F50.2 Anorexia 04/18/14 R63.0 Alcohol abuse 04/17/14 F10.10 Pericardial effusion I31.3 Fall W19.XXXA Localized superficial swelling, mass, or lump R22.9 Elevated cholesterol E78.00 Vaginal bleeding N93.9 Status post hysterectomy with oophorectomy Z90.710, Z90.721 History of endometriosis Z87.42 Ankle sprain S93.409A Neck pain M54.2 Clavicle pain M89.8X1 Rash R21 Nasal congestion R09.81 Postnasal drip R09.82 Cough R05 SOB (shortness of breath) R06.02 Fever R50.9 Left foot pain M79.672 Left ankle pain M25.572 Elevated cholesterol E78.00 Osteoporosis M81.0 Insomnia G47.00 Equinus contracture of left ankle M24.572 Enteropathic arthropathies, left ankle and foot M07.672 Elevated LFTs R79.89 Elevated alkaline phosphatase level R74.8 Migraine, unspecified, intractable, without status migrainosus G43.919 Sensorineural hearing loss (SNHL) of both ears H90.3 Neurogenic bladder N31.9 Lesion of lateral popliteal nerve, left lower limb G57.32 Injury of cutaneous sensory nerve at ankle and foot level, left leg, initial encounter S94.32XA Peripheral nerve entrapment syndrome G58.9 Lesion of deep peroneal nerve G57.30 Bronchitis J40 COVID U07.1 Medical History Medical History Chronic pain of right knee Congenital stroke Deafness in left ear Endometriosis Gallstones GERD (gastroesophageal reflux disease) Heart burn Hemianopsia left Hemiparesis left-pt. ambulates with a limp History of alcohol abuse HSV infection Hx of drug abuse Hx of renal calculi Migraine Obstructive sleep apnea on CPAP 05/21/21f/u sleep clinic Retinal detachment, left Sleep-related bruxism Urinary incontinence Surgical History Surgical History Cholecystectomy (06/05/17) EGD - MAC (04/18/17) Gastrocnemius equinus of left lower extremity (~10/2020) Laparotomy (06/11/17) drain placement, biloma left hand tendon surgery Oophrectomy, Both with hyst renal stent S/P nerve repair (~04/15/21) Dr Alvarez,DPM,[place] repair deep peroneal nerve dorsal surface L foot w/Axogen nerve wrap Trigger Finger release (05/13/15) L sm finger Dr Gilliam Vaginal hysterectomy 2003 for Endometriosis Tobacco Smoking/Tobacco Use Status: Former Tobacco Use Alcohol Alcohol Intake: former Substance Use Substance use: Current Sobriety Substance use type: crack/cocaine Details: Sober for 20 years Prental History History 3 Para 3 Hx # Term Pregnancies Multiple births Hx # Pregnancies Ectopic pregnancies AB induced Hx Number of Living Children AB spontaneous Vital Signs and Lab Results Vital Signs Most Recent Vital Signs in EMR: Most Recent Vital Signs Temp Pulse Resp BP Pulse Ox 36 C L 90 18 111/74 95 08/19/22 07:45 08/19/22 07:45 08/19/22 07:45 08/19/22 07:45 08/19/22 07:45 Lab Results Blood Type / Crossmatch: No Data to Display Complete Blood Count: No Data to Display Complete Metabolic Panel: No Data to Display Liver Function Panel: No Data to Display Coagulation Panel: No Data to Display Cardiac Panel: No Data to Display Arterial Blood Gas: No Data to Display Venous Blood Gas: No Data to Display Pancreas Panel: No Data to Display Thyroid Panel: No Data to Display Infectious Disease: No Data to Display Blood Cultures: No Data to Display Toxicology Panel: No Data to Display Panel: No Data to Display Imaging and Studies Imaging and Studies Study information below may be from another EMR and interpreted by another provider. Please see original notes in EMR for more complete details. Echocardiogram Summary: STUDY CONCLUSIONS* Summary: 1. Pericardium, extracardiac: A trivial, pericardial effusion was identified posterior to the heart. There was no evidence of hemodynamic compromise. 2. Left ventricle: The cavity size was normal. Wall thickness was normal. Systolic function was normal. The estimated ejection fraction was 60-65%. Wall motion was normal; there were no regional wall motion abnormalities. 3. Right ventricle: The cavity size was normal. Wall thickness was normal. Systolic function was normal. 4. Inferior vena cava: The vessel was patent and normal in size. The respirophasic diameter changes were in the normal range (greater than or equal to 50%). 01/23/19 Pulmonary Function Summary: INTERPRETATION OF STUDY: Spirometry shows no evidence of obstructive airways disease, but there is significant bronchodilator response, which may be an effort-related phenomenon. LUNG VOLUMES: Lung volumes show no evidence of restriction. DIFFUSION CAPACITY: Normal. AIRWAY RESISTANCE: Normal. IMPRESSION: Overall normal pulmonary function study. Clinical correlation recommended. It is noteworthy that both the spirometry maneuvers for both pre and post bronchodilator response did not meet ATS criteria, neither did the diffusion capacity maneuver, therefore, this test is considered to be suboptimal patient effort. Carlita Proctor/jaja 06/07/14 Anesthesia Assessment and Plan Anesthesia History Personal History: No History of Anesthesia Complications Family History: No Family History of Anesthesia Complications Exercise Tolerance Exercise Tolerance: Metabolic Equivalents<4 Pertinent Negatives Pertinent Negatives: No Major Cardiovascular Symptoms or Complaints and No Major Pulmonary Symptoms or Complaints Cardiac & Pulmonary Exam Cardiac Exam: Normal S1/S2 Heart Sounds Pulmonary Exam: Clear Bilateral Breath Sounds Implantable Cardiac Device Does patient have a Pacemaker or an ICD?: No Airway Exam Known Difficult Airway: No Mallampati Class: 2 Mouth Opening: Normal (> 3cm) Thyromental Distance: Greater than 3 cm Neck Range of Motion: Full ROM Neck Circumference: Thick Teeth Condition: Normal Dentition ASA Classification ASA Score: ASA 3 Emergency Case?: No NPO Status NPO Status: NPO Clears >2 hours, Solids >8 hours Status Status: History of Hysterectomy Anesthesia Plan Resuscitation Status: Full Code Anesthesia Technique: General Anesthesia Airway Planned: Natural Airway Monitors Used: Standard Monitors Preoperative Comments:: ETT back up, procedure to be done in the OR for access to more equipment.
[2022-08-19] MEDS: Lactated Ringers 1,000 ML 80 ML IV (08:25)
--- NOTE | 2022-08-19 08:43 | W.PM.ENDDOP ---
Date of service: 08/19/22 Time of Service: 09:15 Endoscopy Report PROCEDURE DESCRIPTION: Procedures performed: 1.? Esophagogastroduodenoscopy with cold forceps biopsies Preoperative diagnosis: Refractory GERD with esophagitis Postoperative diagnosis: Bile reflux, reflux gastropathy/gastritis, gastric polyps, normal esophagus Surgeon: Seth Cervantes Anesthesia: John Indication for procedure: 47-year-old woman with no significant family history has had refractory GERD for many years now. It does not respond adequately to antacid medications.. Over the last few months she has experienced neck swelling that is bothered and worse with swallowing. She also has a raspy voice and has a chronic cough. She thinks this is all from acid reflux. Findings: - D3, D2 and D1 - normal - no inflammation or ulcers - Pylorus - patent.? Bile was visualized refluxing during the procedure and the antrum had bile sitting in it upon entry into the stomach. This is clinically consistent with bile reflux as a diagnosis. - Antrum -mildly inflamed consistent with either mild gastritis or gastropathy (from bile)- biopsies taken to assess and to rule out occult H. pylori - Stomach Body -mildly inflamed and separate biopsies were taken here to assess. - Fundus - benign?appearing fundic polyps likely secondary to PPI use. 1 was removed with cold forceps technique to confirm benign histology. - Hiatus - Retroflexion showed no evidence of hiatal hernia. - Esophagus - there is no evidence of inflammation visually in the esophagus. There is no stricture or Bray's esophagus. I did take cold forceps biopsies at the distal esophagus and cervical esophagus because of her preop symptoms but all of it appeared normal visually. - Cords/hypopharynx - Normal OVERALL - Bile reflux visualized and likely accounting for a lot of the symptoms. The esophagus itself did not appear visually inflamed. Surveillance/follow-up recommendations: Pending biopsy results.?? Unlikely to be necessary.?? Follow-up with PCP to discuss symptoms. Bile reflux is difficult to treat with no consensus on best strategies. Complications: None Blood loss: Minimal Specimens:? YES Procedure in detail: Written consent was obtained from the patient who was in agreement with the risks, benefits and indications of the procedure.? We went to the endoscopy suite and laid the patient in left lateral decubitus position.? Anesthesia was administered which was tolerated well.? A timeout was performed and when we are all in agreement we began the procedure. A well?lubricated endoscope was advanced without difficulty down the esophagus, into the stomach, through a patent pylorus and into the duodenum.? It was then slowly pulled back with findings noted above. The scope was then removed and the patient tolerated the procedure well and was then turned for the colonoscopy portion of the procedure (see separate procedure note)
--- NOTE | 2022-08-19 08:47 | W.COLOREPORT ---
Date of service: 08/19/22 Time of Service: 09:15 Colonoscopy Report Procedure Description: Procedures performed: 1. Colonoscopy Preoperative diagnosis: Screening colonoscopy Postoperative diagnosis: Normal Colon, grade 1 internal hemorrhoids. Surgeon: Seth Cervantes Anesthesia: John Indication for procedure: 47 year-old woman without any symptoms, no prior colonoscopy normal, no family history of colon cancer due for screening. Findings: Normal terminal ileum.? Normal Colon. Removed polyps. No significant diverticular disease was seen. Grade 1 internal hemorrhoid disease was visualized. Surveillance/follow-up recommendations: 10 years from a colorectal cancer surveillance standpoint. Complications: None Blood loss: Minimal Prep: Excellent Procedure in detail: Written consent was obtained from the patient who was in agreement with the risks, benefits and indications of the procedure.? She was turned from upper endoscopy (see separate procedure note) and kept in the same position and anesthesia was continued and I started the colonoscopy portion of the procedure. Digital rectal exam and visual examination was performed and within normal limits.? A well?lubricated colonoscope was advanced without difficulty all the way to the cecum identified by the ileocecal valve, and triangular folds and appendiceal orifice.? Terminal ileum was briefly intubated and appeared normal.? It was then slowly withdrawn.?? Retroflexion was performed in the rectum.? The findings/interventions are noted above. The scope was then removed and the patient tolerated the procedure well and was then taken back to the PACU in hemodynamically stable condition.
[2022-08-19 09:13] VITALS: BMI 46.5
--- NOTE | 2022-08-19 09:20 | STOM_PTH ---
PATIENT: Yuli Romero LOC: [facility] U#:[id number] AGE/SX: 47/F ROOM: RE08/19/[address]: Tab Cervantes : 1975 BED: DIS: 08/19/2022 SPEC #: [id number] RECD: 08/19/22 12:33 STATUS: RUBI REAleida #: [id number] VARGHESE: 08/19/22 09:[address]: Tab Cervantes DEPT: Surgical Specimen RECD BY: Marta Joshua ENTERED: 08/19/22 12:36 SP TYPE: STOMACH OTHR DR: Larua Hidalgo APRN Tissues: 1 - STOMACH BIOPSY 2 - STOMACH BIOPSY 3 - STOMACH BIOPSY 4 - ESOPHAGUS BIOPSY 5 - ESOPHAGUS BIOPSY Procedures: GROSS AND MICRO LEVEL 4 Comments: [id number]
[2022-08-19 10:01] VITALS: BP 92/62; PULSE 64; RESP 18; TEMP 36.8; O2SAT 98
[2022-08-19 10:08] VITALS: BP 109/81; PULSE 62; RESP 16; O2SAT 98
[2022-08-19 10:24] VITALS: BP 118/78; PULSE 70; RESP 16; TEMP 36.7; O2SAT 99
--- NOTE | 2022-08-19 10:42 | W.ANESPOSTOP ---
Postoperative Evaluation Date, Time and Location Date Performed: 08/19/22 Time Performed: 10:36 Patient Location: Day Surgery Unit Vital Signs Most Recent Imported Vital Signs: Most Recent Vital Signs Temp Pulse Resp BP Pulse Ox 36.7 C 70 16 118/78 99 08/19/22 10:24 08/19/22 10:24 08/19/22 10:24 08/19/22 10:24 08/19/22 10:24 Pain Score Most Recent Pain Score: Most Recent Pain Score Pain Level 2 08/19/22 10:01 Assessment Mental Status: Awake (Alert & Oriented to Patient Baseline) Airway and Respiratory Function: Patent airway with normal (patient baseline) respiratory exam Cardiovascular Function: Hemodynamically Stable Hydration Status: Adequately Hydrated Nausea & Vomiting: No Nausea or Vomiting Pain: Pain is tolerable per patient Peripheral Nerve Block: Patient did not receive a nerve block
[2022-08-19 10:45] VITALS: BP 110/75; PULSE 76; RESP 18; O2SAT 99
== END 2022-08-19 10:45 | disposition home or self-care (01) ==
PROVIDERS: PCP Nurse Practitioner; Visit Provider Student in an Organized Health Care Education/Training Program
PROC: (CPT 45378; principal; 2022-08-19 09:00)
DX: Z12.11 Encounter for screening for malignant neoplasm of colon (principal); K29.70 Gastritis, unspecified, without bleeding; K31.7 Polyp of stomach and duodenum; K21.9 Gastro-esophageal reflux disease without esophagitis; K22.89 Other specified disease of esophagus
CPT/HCPCS: 45378; 43239; 88305; J2250; J2405

== ENCOUNTER 2022-10-01 18:12 | Outpatient (REF) | payer MEDICAID, SELFPAY | END 2022-10-01 18:13 | disposition home or self-care (01) | LOC: LBN 18:12 | PROVIDERS: PCP Nurse Practitioner; Visit Provider Nurse Practitioner Adult Health | DX: R30.0 Dysuria (principal); R35.0 Frequency of micturition | CPT/HCPCS: 87086 ==

== ENCOUNTER 2022-12-14 13:38 | Emergency (ER) | payer MEDICAID, SELFPAY ==
[2022-12-14 13:37] VITALS: BP 105/49; PULSE 85; RESP 15; TEMP 37.1; O2SAT 97
--- NOTE | 2022-12-14 15:15 | DI.RAD_ITS ---
Exam(s) XR HUMERUS LT EXAM: XR HUMERUS LT CLINICAL HISTORY: pain post fall. TECHNIQUE: 2D digital imaging was performed. COMPARISON: No exams were available for comparison FINDINGS: Two views. No evidence of fracture nor dislocation. No radiopaque foreign body. Bone density normal. No osseo us lesions. Visualized left scapula and glenohumeral joint appear unremarkable. IMPRESSION: No fracture of the left humerus. DATA REPOSITORY: RADIATION DOSE DELIVERED:
--- NOTE | 2022-12-14 15:15 | DI.RAD_ITS ---
Exam(s) XR ELBOW LT LIMITED EXAM: XR ELBOW LT LIMITED CLINICAL HISTORY: pain post fall. TECHNIQUE: 2D digital imaging was performed. COMPARISON: CR XR elbow RT complete from 01/04/2019 FINDINGS: 3 views No evidence of fracture or joint effusion and there is no swelling of the olecranon bursa. Radial he ad and neck appear unremarkable. Distal humerus unremarkable. Olecranon unremarkable. Epicondyles unremarkable. IMPRESSION: No significant osseous findings in the elbow. No elbow joint effusion. DATA REPOSITORY: RADIATION DOSE DELIVERED:
--- NOTE | 2022-12-14 15:15 | DI.RAD_ITS ---
Exam(s) XR SHOULDER LT COMPLETE 2+V EXAM: XR SHOULDER LT COMPLETE 2+V CLINICAL HISTORY: pain post fall. TECHNIQUE: 2D digital imaging was performed. COMPARISON: CR XR SHOULDER LT COMPLETE 2+V from 09/24/2021 FINDINGS: 3 views Uterus no evidence of acute fracture or dislocation or abnormal soft tissue calcifications. No degen erative changes evident in the glenohumeral joint. AC joint unremarkable. Scapula unremarkable. Cl avicle unremarkable. IMPRESSION: No acute osseous findings in the left shoulder. DATA REPOSITORY: RADIATION DOSE DELIVERED:
--- NOTE | 2022-12-14 15:15 | DI.RAD_ITS ---
Exam(s) XR CLAVICLE LT EXAM: XR CLAVICLE LT CLINICAL HISTORY: pain post fall. TECHNIQUE: 2D digital imaging was performed. COMPARISON: CR XR CLAVICLE RT from 07/25/2019 FINDINGS: Two views No evidence of acute fracture of the left clavicle. No dislocation of the AC joint. Acromion appear s unremarkable. IMPRESSION: No left clavicle fracture. DATA REPOSITORY: RADIATION DOSE DELIVERED:
[2022-12-14] MEDS: HYDROmorphone 2 MG/ML SYR IM (15:46)
--- NOTE | 2022-12-14 17:00 | W.ED.GENAD ---
Discharge Plan Disposition Patient Disposition: Home Condition: Stable Discharge Details Clinical Impression: Contusion of arm, left, multiple sites Primary Care Provider: Laura Hidalgo ED Provider: Cheryle Chaudhry Home Meds and New Rx's Prescriptions: Continued fluticasone propionate [Flonase Allergy Relief] 50 mcg/actuation spray,suspension 2 spray intranasal DAILY Qty: 15.8 8RF Rx Instructions: administer into each nostril triamcinolone acetonide 0.1 % cream 1 applic topical BID PRN (Reason: rash abdomen) Qty: 30 0RF bisacodyl [Dulcolax (bisacodyl)] 5 mg tablet,delayed release (DR/EC) 5 mg PO ONCE Qty: 4 0RF Rx Instructions: Take according to provider's instructions for colonoscopy prep. polyethylene glycol 3350 17 gram/dose powder 17 g PO ONCE Qty: 238 0RF Rx Instructions: To be taken as directed by prescriber's office for colonoscopy prep. clotrimazole-betamethasone 1-0.05 % cream 1 applic topical BID 14 Days Qty: 45 5RF Rx Instructions: apply liberally to groin folds, labia, glutteal fold for incontinence dermatitis + fungal rash valacyclovir [Valtrex] 500 mg tablet 500 mg PO DAILY Qty: 90 3RF Elder Rousseau PO albuterol sulfate [ProAir HFA] 90 mcg/actuation HFA aerosol inhaler 2 puff Inhalation QID PRN (Reason: shortness of breath or wheezing) Qty: 18 12RF melatonin 10 mg capsule 10 mg PO HS PRN (Reason: sleep) Qty: 90 3RF nitrofurantoin monohyd/m-cryst [Macrobid] 100 mg capsule 100 mg PO BID Qty: 14 0RF Rx Instructions: must administer with a meal/food baclofen 10 MG tablet 10 mg PO TID Patient Comments: 11/08/17-dose decr per Dr Welsh- meloxicam 7.5 MG tablet 7.5 mg PO DAILY Qty: 30 Rx Instructions: Dr. Welsh, [facility] aspirin 325 MG tablet 325 mg PO DAILY cyanocobalamin (vitamin B-12) 1,000 MCG tablet 1,000 mcg PO DAILY omeprazole 40 mg capsule,delayed release(DR/EC) 40 mg PO DAILY Qty: 90 3RF cholecalciferol (vitamin D3) 1,250 mcg (50,000 unit) capsule 1,250 mcg PO QWEEK Rx Instructions: per note dated 05/25/21 [facility] rizatriptan 10 mg tablet See Rx Instructions PO .COMPLEX Qty: 7 6RF Rx Instructions: take 1 tab at onset of headache; if no relief may repeat 1 tab after at least 2 hrs; max = 3 tabs/24 hr PO topiramate 25 mg tablet 25 mg PO BID Qty: 180 3RF Rx Instructions: 11/07/17- dose per Dr. Welsh's ov-[facility] (DME) hearing aids See Rx Instructions .Route .MEDSUPPLY Qty: 1 0RF Rx Instructions: medically cleared for hearing aids riboflavin (vitamin B2) 100 mg tablet 200 mg PO BID Rx Instructions: per [facility] note dated 12/31/21 cc magnesium oxide 400 mg magnesium capsule 400 mg PO DAILY Patient Comments: 05/06/22 visit atorvastatin 20 mg tablet See Rx Instructions .ROUTE .COMPLEX Qty: 90 3RF Dose Instruction: TAKE ONE TABLET BY MOUTH EVERY EVENING Rx Instructions: TAKE ONE TABLET BY MOUTH EVERY EVENING oxybutynin chloride 5 mg tablet 5 mg PO BID amitriptyline 50 MG tablet 50 mg PO HS calcium carbonate 500 MG tablet,chewable 500 mg CH DAILY multivitamin [Daily Multi-Vitamin] 1 EACH tablet 1 ea PO DAILY Discharge Instructions Instructions: Contusion in Adults (ED) Additional Instructions: Ice 20 minutes on and 20 minutes off 24 to 72 hours. Tylenol 650 mg every 6 hours and/or ibuprofen 600 mg every 6 hours as needed for pain. Use the sling as needed for comfort but take your arm out of it 6 times a day and let it hang. While obtaining this do some little circles with your arm (pendulum exercises). Recheck with your primary care doctor as needed if no better by Tuesday. Discharge Data Discharge Date/Time-TO BE ENTERED AT DEPARTURE: 12/14/22 17:15 Medical Decision Making Patient was updated on her test results. Ice, ibuprofen, sling, and Tylenol should help. I did tell her it may be sorer tomorrow and the day after but should begin to improve after that. Imaging Data Radiologic Study: Attestation: I personally reviewed and interpreted this imaging study as follows: Imaging: X-Ray My impression: Patient's left clavicle, shoulder, humerus, and elbow are all negative. HPI General Date/Time Provider Initiated Documentation: 12/14/22 15:17. HPI Narrative: This 47-year-old female patient with a history of cerebral palsy and infantile hemiplegia presents after tripping at home and landing on her left upper extremity. Patient tells me that she does walk. She was placed in a sling with ice in the waiting room which is where I saw her. She gave permission for me to ask questions and examine her there as it was extremely busy. Patient was extremely emotional and yelled anywhere I touched between her left clavicle and elbow. She was quite tearful. She denied hitting her head and there was no LOC or neck pain. She had no other trauma. Related Data Home Medications Medication Instructions Recorded Confirmed baclofen 10 mg tablet 10 mg PO TID 01/29/13 12/14/22 amitriptyline 50 mg tablet 50 mg PO HS 02/13/13 12/14/22 calcium carbonate 200 mg calcium 500 mg CH DAILY 02/13/13 12/14/22 (500 mg) chewable tablet multivitamin (Daily Multi-Vitamin 1 ea PO DAILY 02/13/13 12/14/22 tablet) meloxicam 7.5 mg tablet 7.5 mg PO DAILY #30 tab-caps 07/29/15 12/14/22 aspirin 325 mg tablet 325 mg PO DAILY 02/21/17 12/14/22 cyanocobalamin (vitamin B-12) 1,000 mcg PO DAILY 02/21/17 12/14/22 1,000 mcg tablet fluticasone propionate 50 2 spray intranasal DAILY #15.8 mL 10/02/20 12/14/22 mcg/actuation nasal spray,suspension (Flonase Allergy Relief) Elder Rousseau PO 03/09/21 10/11/22 omeprazole 40 mg capsule,delayed 40 mg PO DAILY ##90 05/21/21 12/14/22 release cholecalciferol (vitamin D3) 1,250 1,250 mcg PO QWEEK 05/25/21 12/14/22 mcg (50,000 unit) capsule rizatriptan 10 mg tablet See Rx Instructions PO .COMPLEX #7 07/20/21 12/14/22 tabs topiramate 25 mg tablet 25 mg PO BID #180 tabs 07/20/21 12/14/22 hearing aids #1 ea 10/02/21 12/14/22 riboflavin (vitamin B2) 100 mg 200 mg PO BID 01/06/22 12/14/22 tablet albuterol sulfate 90 mcg/actuation 2 puff inhalation QID PRN 02/02/22 12/14/22 aerosol inhaler (ProAir HFA) shortness of breath or wheezing #18 grams magnesium oxide 400 mg PO DAILY 05/11/22 12/14/22 melatonin 10 mg capsule 10 mg PO HS PRN sleep #90 caps 07/05/22 12/14/22 bisacodyl 5 mg tablet,delayed 5 mg PO ONCE #4 tabs 07/29/22 12/14/22 release (Dulcolax (bisacodyl)) polyethylene glycol 3350 17 17 g PO ONCE #238 grams 07/29/22 12/14/22 gram/dose oral powder triamcinolone acetonide 0.1 % 1 applic topical BID PRN rash 08/03/22 12/14/22 topical cream abdomen #30 grams atorvastatin 20 mg tablet See Rx Instructions .Route 08/11/22 12/14/22 .COMPLEX #90 tabs nitrofurantoin 100 mg PO BID #14 caps 10/01/22 12/14/22 monohydrate/macrocrystals 100 mg capsule (Macrobid) oxybutynin chloride 5 mg tablet 5 mg PO BID 10/04/22 12/14/22 clotrimazole-betamethasone 1 1 applic topical BID 2 weeks #45 10/11/22 12/14/22 %-0.05 % topical cream grams valacyclovir 500 mg tablet 500 mg PO DAILY #90 tab-caps 10/11/22 12/14/22 (Valtrex) Previous Rx's Medication Instructions Recorded fluticasone propionate 50 2 spray intranasal DAILY #15.8 mL 10/02/20 mcg/actuation nasal spray,suspension (Flonase Allergy Relief) omeprazole 40 mg capsule,delayed 40 mg PO DAILY ##90 05/21/21 release rizatriptan 10 mg tablet See Rx Instructions PO .COMPLEX #7 07/20/21 tabs topiramate 25 mg tablet 25 mg PO BID #180 tabs 07/20/21 hearing aids #1 ea 10/02/21 albuterol sulfate 90 mcg/actuation 2 puff inhalation QID PRN 02/02/22 aerosol inhaler (ProAir HFA) shortness of breath or wheezing #18 grams melatonin 10 mg capsule 10 mg PO HS PRN sleep #90 caps 07/05/22 bisacodyl 5 mg tablet,delayed 5 mg PO ONCE #4 tabs 07/29/22 release (Dulcolax (bisacodyl)) polyethylene glycol 3350 17 17 g PO ONCE #238 grams 07/29/22 gram/dose oral powder triamcinolone acetonide 0.1 % 1 applic topical BID PRN rash 08/03/22 topical cream abdomen #30 grams atorvastatin 20 mg tablet See Rx Instructions .Route 08/11/22 .COMPLEX #90 tabs nitrofurantoin 100 mg PO BID #14 caps 10/01/22 monohydrate/macrocrystals 100 mg capsule (Macrobid) clotrimazole-betamethasone 1 1 applic topical BID 2 weeks #45 10/11/22 %-0.05 % topical cream grams valacyclovir 500 mg tablet 500 mg PO DAILY #90 tab-caps 10/11/22 (Valtrex) Allergies Allergy/AdvReac Type Severity Reaction Status Date / Time fluconazole Allergy Severe SEIZURE Verified 12/14/22 13:43 Sulfa (Sulfonamide Allergy Severe SEIZURE Verified 12/14/22 13:43 Antibiotics) trimethoprim Allergy Intermediate UNKNOWN Verified 12/14/22 13:43 General Stated Complaint: Orthopedic JACOB: 4 Review of Systems Constitutional Constitutional: Denies chills, Denies fever(s), Denies headache(s) and Denies weakness Eyes Eyes: Denies diplopia and Reports other (no redness) ENT Ears, Nose, Mouth, and Throat: Denies otalgia, Denies headache(s), Denies nasal congestion, Denies nasal discharge, Denies neck pain and Denies sore throat Cardiovascular Cardiovascular: Denies chest pain, Denies palpitations and Denies dyspnea Respiratory Respiratory: Denies cough and Denies dyspnea Gastrointestinal Gastrointestinal: Denies abdominal pain, Denies diarrhea, Denies nausea and Denies vomiting Genitourinary Genitourinary: Denies dysuria Musculoskeletal Musculoskeletal: Denies myalgias, Denies muscle weakness, Denies neck pain, Denies numbness and Reports other (no edema but pain from mid L clavicle to elbow) Integumentary/Breasts Skin/Breast: Denies change in pigmentation and Denies rash Neurologic Neurologic: Denies headache(s), Denies numbness and Denies weakness Endocrine Endocrine: Denies palpitations PFSH All Active Problems Contusion of arm, left, multiple sites (Acute) Biloma following surgery (Acute) NATALIIA (obstructive sleep apnea) (Chronic) Acquired absence of both cervix and uterus (Acute 01/03/12) Hyst for endometriosis Acute retinal necrosis of left eye (Acute 04/18/14) Afferent pupillary defect of left eye (Acute 08/15/14) Asthma (Acute 04/17/14) Blindness of left eye (Acute 08/15/14) Cerebral palsy, infantile hemiplegia (Acute 04/17/14) left hemiparesis HSV infection (Acute 02/05/14) Hearing loss, neural, unilateral (Acute 02/16/16) Herpes simplex viremia (Acute 04/17/14) Congenital Migraine (Acute 02/05/14) Osteoporosis (Acute 04/17/14) T2= -2.9 11/11 Patellofemoral instability of both knees with pain (Acute 03/15/17) Transient visual disturbance, right (Acute 08/15/14) Trigger little finger of left hand (Acute 04/16/15) Body mass index 40.0-44.9, adult (Chronic) Intravenous drug abuse (Acute 04/17/14) Endometriosis (Acute 04/17/14) Depressive disorder (Chronic 04/17/14) Calculus of kidney (Acute 01/06/09) Bulimia (Acute 04/18/14) Anorexia (Acute 04/18/14) Alcohol abuse (Acute 04/17/14) Pericardial effusion (Acute) Fall (Acute) Localized superficial swelling, mass, or lump (Acute) Elevated cholesterol (Chronic) Vaginal bleeding (Acute) Status post hysterectomy with oophorectomy (Acute) History of endometriosis (Acute) Ankle sprain (Acute) Neck pain (Acute) Clavicle pain (Acute) Rash (Acute) Nasal congestion (Acute) Postnasal drip (Acute) Cough (Acute) SOB (shortness of breath) (Acute) Fever (Acute) Left foot pain (Acute) Left ankle pain (Acute) Elevated cholesterol (Chronic) Osteoporosis (Chronic) due to surgical menopause, low ca intake Insomnia (Acute) Equinus contracture of left ankle (Acute) 10/15/20 [facility] Enteropathic arthropathies, left ankle and foot (Acute) 09/23/20 Ferdinand Alvarez DPM - surgical recommendation Elevated LFTs (Acute) Elevated alkaline phosphatase level (Acute) Migraine, unspecified, intractable, without status migrainosus (Acute) Sensorineural hearing loss (SNHL) of both ears (Acute) hearing aids, L>R, left ear, per Audiometry Rpt 09/30/21 ([facility]). Order needed, medically cleared for hearing aids .. IK Neurogenic bladder (Acute) Lesion of lateral popliteal nerve, left lower limb (Acute) Per [facility] Injury of cutaneous sensory nerve at ankle and foot level, left leg, initial encounter (Acute) Per [facility] Peripheral nerve entrapment syndrome (Acute) Per [facility] Lesion of deep peroneal nerve (Acute) LEFT FOOT Bronchitis (Acute) COVID (Acute) Positive 04/13/22 Medical History Chronic pain of right knee Congenital stroke Deafness in left ear Endometriosis Gallstones GERD (gastroesophageal reflux disease) Heart burn Hemianopsia left Hemiparesis left-pt. ambulates with a limp History of alcohol abuse HSV infection Hx of drug abuse Hx of renal calculi Migraine Obstructive sleep apnea on CPAP 05/21/21f/u sleep clinic Retinal detachment, left Sleep-related bruxism Urinary incontinence Surgical History Cholecystectomy (06/05/17) EGD - MAC (04/18/17) Gastrocnemius equinus of left lower extremity (~10/2020) Laparotomy (06/11/17) drain placement, biloma left hand tendon surgery Oophrectomy, Both with hyst renal stent S/P nerve repair (~04/15/21) Dr Antonio DPM,[facility] repair deep peroneal nerve dorsal surface L foot w/Axogen nerve wrap Trigger Finger release (05/13/15) L sm finger Dr Gilliam Vaginal hysterectomy 2003 for Endometriosis Family History Mother Breast cancer COPD (chronic obstructive pulmonary disease) Thyroid disorder Father Heart disease Grandmother Breast cancer Paternal Maternal Aunt Breast cancer paternal Sister Crohn's disease Social History Smoking/Tobacco Use Status: Former Tobacco Use Quit Date: 06/06/07 Smoking risk assessment performed?: Yes Alcohol Intake: former Drug use: Current Sobriety Substance use type: crack/cocaine Details: Sober for 20 years Caregiver/Support person: No Housing: apartment Number of Children: 3 Communication Needs: None Education Level: high school current occupation: Disability Pets and animals: Yes Pets and animals: cat(s) Current gender identity: female What type of physical activity do you participate in: resistance training Frequency: 1-2 times per week Seatbelt use: always Water heater temp set <120 deg: Yes Working smoke detector in home: Yes Fire extinguisher in home: Yes Carbon monox detector in home: Yes Firearms in home: No Do you feel safe at home: Yes Do you feel safe in your relationship?: Yes Female Reproductive History Menstrual Menopause type: surgical History History 3 Para 3 Hx # Term Pregnancies Multiple births Hx # Pregnancies Ectopic pregnancies AB induced Hx Number of Living Children AB spontaneous Exam Const General: no acute distress, well developed, well groomed and not in acute distress Nutritional Appearance: well nourished Orientation: alert and oriented x3 HENMT Head: normocephalic and atraumatic Ears: external ears normal Mouth: oropharynx normal and moist mucous membranes Throat: posterior oropharynx normal Eyes Conjunctivae: conjunctivae normal Neck Neck: full ROM and supple Chest Chest: normal inspection of the chest Resp Effort & Inspection: normal respiratory effort Auscultation: clear to auscultation bilaterally Cardio Rate: regular rate Rhythm: regular rhythm Heart Sounds: no murmurs and no rubs GI Inspection: normal to inspection Palpation: soft, nontender and other (non distended) Auscultation: normal bowel sounds Skin General skin exam: no rashes or lesions noted and other (pink, warm, dry) Neuro General: patient alert, patient awake and patient oriented x3 Speech: speech normal Motor: other (DENG) Sensory Exam: no sensory deficits noted Extrem General: normal to inspection, full ROM and pedal edema present Left upper extremity: normal to inspection and normal capillary refill Other: Pain LUE from mid clavicle to elbow, AT but TTP all over, NVI distally Psych Mental Status: mental status grossly normal Speech and Movement: speech and movement normal Affect: normal affect Course Vital Signs Vital signs: Vital Signs Temperature 37.1 C 12/14/22 13:37 Pulse 85 12/14/22 13:37 Respiratory Rate 15 12/14/22 13:37 Blood Pressure 105/49 L 12/14/22 13:37 Pulse Oximetry 97 12/14/22 13:37 Temperature 37.1 C 12/14/22 13:37 Temperature Source Tympanic 12/14/22 13:37 Pulse 85 12/14/22 13:37 Respiratory Rate 15 12/14/22 13:37 Respiratory Effort Normal 12/14/22 13:41 Blood Pressure 105/49 L 12/14/22 13:37 Blood Pressure Position Sitting 12/14/22 13:37 Pulse Oximetry 97 12/14/22 13:37 Oxygen Delivery Method Room Air 12/14/22 13:37 Oxygen Flow Rate 0 12/14/22 13:37 Pain Level 9 12/14/22 13:42 Lab/Test Results Lab/Test Results: Laboratory Tests Range/Units 12/14/22 14:30 Uric Acid Cancelled
== END 2022-12-14 17:15 | disposition home or self-care (01) ==
PROVIDERS: Emergency Provider Emergency Medicine; PCP Nurse Practitioner
DX: S40.022A Contusion of left upper arm, initial encounter (principal); W01.0XXA Fall on same level from slipping, tripping and stumbling without subsequent striking against object, initial encounter
CPT/HCPCS: 96372; 99284; 73000; 73030; 73060; 73070; 84550; J1170

== ENCOUNTER → 2023-01-17 02:27 | Outpatient (CLI) | payer MEDICAID, SELFPAY ==
--- NOTE | 2023-01-17 07:10 | DI.MRI_ITS ---
Exam(s) MR UPPER JOINT LT WO EXAM: MR UPPER JOINT LT WO CLINICAL HISTORY: severe left shoulder pain 3 weeks, s/p fall,M25.512,W19.XXXA TECHNIQUE: Multiplanar multisequence MRI of the shoulder was performed. COMPARISON: CR XR ELBOW LT LIMITED from 12/14/2022 CR XR SHOULDER LT COMPLETE 2+V from 12/14/2022 CR XR HUMERUS LT from 12/14/2022 FINDINGS: MARROW:There are radiographically occult T1 visible fracture lines in the lateral aspect of the humer al head at the greater tuberosity level with surrounding bone edema. There is no displacement. No o sseous lesions. There is some fluid in the overlying sub deltoid bursa. No evidence of Hill-Sachs d eformity. No osseous Bankart lesion. ROTATOR CUFF MECHANISM: AC JOINT/ACROMIUM: AC joint appears unremarkable.. There is no evidence of os acromiale. Supraspinatus: Intact. No evidence of tear nor muscle atrophy. Infraspinatus: Intact. No evidence of tear nor muscle atrophy. Teres Minor: Intact. No evidence of tear nor muscle atrophy. Subscapularis/anterior cuff: Intact. No abnormal signal at the level of the multipennate insertional fibers. No significant tear nor atrophy. BICEPS TENDON: Normally position in the intertubercular groove. No evidence of tear. No tenosynovitis. LABRUM: No labral tear identified. No evidence of paralabral cyst. LABROLIGAMENTOUS/CAPSULAR COMPLEX: There is no evidence of avulsion of the anterior-inferior labrum, capsule, inferior glenohumeral liga ment complex nor disruption of the scapular periosteum to suggest the presence of a Bankart lesion. GLENOHUMERAL JOINT: No prominent joint effusion nor obvious loose intra-articular bodies. No chondra l defects. No osteophytes. No degenerative subarticular cysts. No evidence of capsular tear. The in ferior glenohumeral ligament is intact. IMPRESSION: 1. There are nondisplaced fracture lines in the greater tuberosity with surrounding bone edema in the humeral head and neck. These fracture lines are radiographically occult, not seen plain film 2022. 2. There is some mild overlying fluid in the subacromial-subdeltoid bursa which is not associated wit h rotator cuff tear and is probably an element of bursitis related to direct trauma over this region. 3. No evidence rotator cuff tears and no evidence of labral tears. DATA REPOSITORY:
== END ==
PROVIDERS: PCP Nurse Practitioner; Visit Provider Nurse Practitioner
DX: S42.255A Nondisplaced fracture of greater tuberosity of left humerus, initial encounter for closed fracture (principal); W19.XXXA Unspecified fall, initial encounter; X58.XXXA Exposure to other specified factors, initial encounter
CPT/HCPCS: 73221

== ENCOUNTER 2023-02-16 14:17 | Outpatient (CLI) | payer MEDICAID, SELFPAY ==
--- NOTE | 2023-02-16 14:00 | DI.RAD_ITS ---
Exam(s) XR SHOULDER LT COMPLETE 2+V EXAM: XR SHOULDER LT COMPLETE 2+V INDICATION: LEFT SHOULDER F/U. COMPARISON: CR XR SHOULDER LT COMPLETE 2+V from 12/14/2022 CR XR CLAVICLE LT from 12/14/2022 MR MR UPPER JOINT LT WO from 01/17/2023 TECHNIQUE: 2D digital imaging was performed. Two views. FINDINGS: Exam is limited by suboptimal positioning. The large amount of overlapping densities. Previously noted nondisplaced fracture at the greater tuberosity is not definitely visualized on this exam. Humeral head normally positioned. DATA REPOSITORY: RADIATION DOSE DELIVERED:
== END 2023-02-16 14:18 | disposition home or self-care (01) ==
LOC: DIORS 14:17
PROVIDERS: PCP Nurse Practitioner; Visit Provider Student in an Organized Health Care Education/Training Program
DX: S42.255D Nondisplaced fracture of greater tuberosity of left humerus, subsequent encounter for fracture with routine healing (principal); X58.XXXD Exposure to other specified factors, subsequent encounter; W19.XXXD Unspecified fall, subsequent encounter
CPT/HCPCS: 73030

== ENCOUNTER 2023-03-09 03:20 | Outpatient (CLI) | payer MEDICAID, SELFPAY ==
[2023-03-09 09:25] LABS: ALT 39 U/L (14-59); AST 19 U/L (15-37); Albumin 3.7 g/dL (3.4-5.0); Alkaline Phosphatase 130 U/L (46-116); Anion Gap 7.4 mmol/L (3-11); BUN 18 mg/dL (7-18); Bilirubin, Total 0.3 mg/dL (0.2-1.0); CO2 27.6 mmol/L (21.0-32.0); Calcium 9.3 mg/dL (8.5-10.1); Calculated LDL 89 mg/dL (<100); Chloride 107 mmol/L (98-107); Cholesterol 170 mg/dL (<200); Estimated GFR 69.49 (mL/min/1.73m2); Glucose 101 mg/dL (74-106); HDL Cholesterol 53 mg/dL (40-60); Potassium 3.8 mmol/L (3.5-5.1); Sodium 142 mmol/L (136-145); Total Protein 7.4 g/dL (6.4-8.2); Triglyceride 140 mg/dL (<150)
== END 2023-03-09 03:21 | disposition home or self-care (01) ==
LOC: LBO 03:20
PROVIDERS: PCP Nurse Practitioner; Visit Provider Nurse Practitioner
DX: E78.00 Pure hypercholesterolemia, unspecified (principal)
CPT/HCPCS: 36415; 80053; 80061

== ENCOUNTER 2023-03-23 12:41 | Emergency (ER) | payer MEDICAID, SELFPAY ==
[2023-03-23 12:46] VITALS: BP 121/87; PULSE 66; RESP 18; TEMP 36.6; O2SAT 95
--- NOTE | 2023-03-23 13:24 | DI.RAD_ITS ---
Exam(s) XR WRIST LT COMPLETE EXAM: XR WRIST LT COMPLETE CLINICAL HISTORY: pain deformity. TECHNIQUE: 2D digital imaging was performed of the left wrist. Three images were obtained. PA, obl ique and lateral views were obtained. COMPARISON: No exams were available for comparison FINDINGS: BONES: No acute fracture is present. No bony destructive lesion is seen. JOINTS: The carpal bones are normally aligned. SOFT TISSUE: Normal. IMPRESSION: Unremarkable radiographs of the left wrist. DATA REPOSITORY: RADIATION DOSE DELIVERED:
--- NOTE | 2023-03-23 13:24 | DI.RAD_ITS ---
Exam(s) XR SHOULDER LT COMPLETE 2+V EXAM: XR SHOULDER LT COMPLETE 2+V CLINICAL HISTORY: pain, deformity. TECHNIQUE: 2D digital imaging was performed of the left shoulder. Six images were obtained. AP, Gr ashey, Y-view and axillary views were obtained. COMPARISON: CR XR SHOULDER LT COMPLETE 2+V from 02/16/2023 FINDINGS: BONES: No acute fracture is present. No bony destructive lesion is seen. JOINTS: No dislocation present. The glenohumeral and acromioclavicular joints are unremarkable. SOFT TISSUE: Normal. IMPRESSION: Unremarkable radiographs of the left shoulder. DATA REPOSITORY: RADIATION DOSE DELIVERED:
--- NOTE | 2023-03-23 13:30 | DI.RAD_ITS ---
Exam(s) XR ELBOW LT COMPLETE EXAM: XR ELBOW LT COMPLETE CLINICAL HISTORY: left elbow, fall injury. TECHNIQUE: 2D digital imaging was performed of the left elbow. Three images were obtained. AP, lat eral and oblique views were obtained. COMPARISON: No exams were available for comparison FINDINGS: BONES: No acute fracture is present. No bony destructive lesion is seen. JOINTS: The elbow is normally aligned. No joint effusion is seen. SOFT TISSUE: Normal. IMPRESSION: Unremarkable radiographs of the left elbow. DATA REPOSITORY: RADIATION DOSE DELIVERED:
--- NOTE | 2023-03-23 13:54 | W.ED.GENAD ---
Discharge Plan Disposition Patient Disposition: Home Discharge Details Clinical Impression: Acute pain of left shoulder, Left wrist sprain Primary Care Provider: Laura Hidalgo ED Provider: Marta Muhammad Home Meds and New Rx's Prescriptions: Continued valacyclovir [Valtrex] 500 mg tablet 500 mg PO DAILY Qty: 90 3RF fluticasone propionate [Flonase Allergy Relief] 50 mcg/actuation spray,suspension 2 spray intranasal DAILY Qty: 15.8 8RF Rx Instructions: administer into each nostril Elder Rousseau PO baclofen 10 MG tablet 10 mg PO TID Patient Comments: 11/08/17-dose decr per Dr Welsh- meloxicam 7.5 MG tablet 7.5 mg PO DAILY Qty: 30 Rx Instructions: Dr. Welsh, [facility] aspirin 325 MG tablet 325 mg PO DAILY cyanocobalamin (vitamin B-12) 1,000 MCG tablet 1,000 mcg PO DAILY cholecalciferol (vitamin D3) 1,250 mcg (50,000 unit) capsule 1,250 mcg PO QWEEK Rx Instructions: per note dated 05/25/21 [facility]gc rizatriptan 10 mg tablet See Rx Instructions PO .COMPLEX Qty: 7 6RF Rx Instructions: take 1 tab at onset of headache; if no relief may repeat 1 tab after at least 2 hrs; max = 3 tabs/24 hr PO topiramate 25 mg tablet 25 mg PO BID Qty: 180 3RF Rx Instructions: 11/07/17-decr dose per Dr. Welsh's ov-LH (DME) hearing aids See Rx Instructions .Route .MEDSUPPLY Qty: 1 0RF Rx Instructions: medically cleared for hearing aids riboflavin (vitamin B2) 100 mg tablet 200 mg PO BID Rx Instructions: per [facility] note dated 12/31/21 cc magnesium oxide 400 mg magnesium capsule 400 mg PO DAILY Patient Comments: 05/06/22 visit atorvastatin 20 mg tablet See Rx Instructions .ROUTE .COMPLEX Qty: 90 3RF Dose Instruction: TAKE ONE TABLET BY MOUTH EVERY EVENING Rx Instructions: TAKE ONE TABLET BY MOUTH EVERY EVENING oxybutynin chloride 5 mg tablet 5 mg PO DAILY albuterol sulfate [ProAir HFA] 90 mcg/actuation HFA aerosol inhaler 2 puff Inhalation QID PRN (Reason: shortness of breath or wheezing) Qty: 18 12RF amitriptyline 50 MG tablet 50 mg PO HS calcium carbonate 500 MG tablet,chewable 500 mg CH DAILY multivitamin [Daily Multi-Vitamin] 1 EACH tablet 1 ea PO DAILY Discharge Instructions Instructions: Wrist Sprain (ED), Shoulder Pain (ED) Additional Instructions: Tylenol as needed for pain Follow-up with orthopedics at your scheduled appointment return earlier should you have new or worsening complaints continue to range shoulder so it doesnt become stiff Referrals: Laura Hidalgo NP [Primary Care Provider] - Discharge Data Discharge Date/Time-TO BE ENTERED AT DEPARTURE: 03/23/23 14:10 Medical Decision Making 48-year-old female presenting with left arm pain after a fall secondary to CP history, GCS 15, no visible sign of head trauma, alert and oriented x4, cranial nerves II through XII intact, tenderness with palpation to left shoulder, elbow, and wrist, no significant visual evidence of trauma, no cervical spine tenderness, x-ray of left elbow, shoulder, and wrist were ordered, no evidence of acute abnormality per radiology interpretation and my review, patient does have an appointment in 2 weeks with orthopedics, she is encouraged to follow-up with orthopedics and have additional imaging at that time should she have persistent pain She has received a sling, she does understand she is at her increased risk for frozen shoulder She is neurovascularly intact She will take Tylenol as needed for pain Return precautions reviewed and patient expressed understanding HPI General Date/Time Provider Initiated Documentation: 03/23/23 12:48. HPI Narrative: This 48-year-old female presents with chest pain, fell on her left arm after losing her balance, she has cerebral palsy and frequently has trouble with her left side, she is supposed to use a cane but does not. She states she fractured her left shoulder approximately 2 months ago and is followed up with Dr. Kumar for this. She states incidentally it was not noted until she received an MRI secondary to persistent pain. Denies any head injury or loss of consciousness. Related Data Home Medications Medication Instructions Recorded Confirmed baclofen 10 mg tablet 10 mg PO TID 01/29/13 03/23/23 amitriptyline 50 mg tablet 50 mg PO HS 02/13/13 03/23/23 calcium carbonate 200 mg calcium 500 mg CH DAILY 02/13/13 03/23/23 (500 mg) chewable tablet multivitamin (Daily Multi-Vitamin 1 ea PO DAILY 02/13/13 03/23/23 tablet) meloxicam 7.5 mg tablet 7.5 mg PO DAILY #30 tab-caps 07/29/15 03/23/23 aspirin 325 mg tablet 325 mg PO DAILY 02/21/17 03/23/23 cyanocobalamin (vitamin B-12) 1,000 mcg PO DAILY 02/21/17 03/23/23 1,000 mcg tablet Elder Rousseau PO 03/09/21 02/16/23 cholecalciferol (vitamin D3) 1,250 1,250 mcg PO QWEEK 05/25/21 03/23/23 mcg (50,000 unit) capsule rizatriptan 10 mg tablet See Rx Instructions PO .COMPLEX #7 07/20/21 03/23/23 tabs topiramate 25 mg tablet 25 mg PO BID #180 tabs 07/20/21 03/23/23 hearing aids #1 ea 10/02/21 02/16/23 riboflavin (vitamin B2) 100 mg 200 mg PO BID 01/06/22 03/23/23 tablet magnesium oxide 400 mg PO DAILY 05/11/22 03/23/23 atorvastatin 20 mg tablet See Rx Instructions .Route 08/11/22 03/23/23 .COMPLEX #90 tabs valacyclovir 500 mg tablet 500 mg PO DAILY #90 tab-caps 10/11/22 02/16/23 (Valtrex) fluticasone propionate 50 2 spray intranasal DAILY #15.8 mL 01/03/23 03/23/23 mcg/actuation nasal spray,suspension (Flonase Allergy Relief) oxybutynin chloride 5 mg tablet 5 mg PO DAILY 01/03/23 03/23/23 albuterol sulfate 90 mcg/actuation 2 puff inhalation QID PRN 02/15/23 03/23/23 aerosol inhaler (ProAir HFA) shortness of breath or wheezing #18 grams Previous Rx's Medication Instructions Recorded rizatriptan 10 mg tablet See Rx Instructions PO .COMPLEX #7 07/20/21 tabs topiramate 25 mg tablet 25 mg PO BID #180 tabs 07/20/21 hearing aids #1 ea 10/02/21 atorvastatin 20 mg tablet See Rx Instructions .Route 08/11/22 .COMPLEX #90 tabs valacyclovir 500 mg tablet 500 mg PO DAILY #90 tab-caps 10/11/22 (Valtrex) fluticasone propionate 50 2 spray intranasal DAILY #15.8 mL 01/03/23 mcg/actuation nasal spray,suspension (Flonase Allergy Relief) albuterol sulfate 90 mcg/actuation 2 puff inhalation QID PRN 02/15/23 aerosol inhaler (ProAir HFA) shortness of breath or wheezing #18 grams Allergies Allergy/AdvReac Type Severity Reaction Status Date / Time fluconazole Allergy Severe SEIZURE Verified 03/23/23 12:49 Sulfa (Sulfonamide Allergy Severe SEIZURE Verified 03/23/23 12:49 Antibiotics) trimethoprim Allergy Intermediate UNKNOWN Verified 03/23/23 12:49 General Stated Complaint: Orthopedic JACOB: 3 PFSH All Active Problems (Updated 03/23/23 @ 14:06 by NAYE Eduardo) Left wrist sprain (Acute) Acute pain of left shoulder (Acute) Fracture of proximal end of left humerus (Acute ~12/14/22) Contusion of arm, left, multiple sites (Acute) Biloma following surgery (Acute) NATALIIA (obstructive sleep apnea) (Chronic) Acquired absence of both cervix and uterus (Acute 01/03/12) Hyst for endometriosis Acute retinal necrosis of left eye (Acute 04/18/14) Afferent pupillary defect of left eye (Acute 08/15/14) Asthma (Acute 04/17/14) Blindness of left eye (Acute 08/15/14) Cerebral palsy, infantile hemiplegia (Acute 04/17/14) left hemiparesis HSV infection (Acute 02/05/14) Hearing loss, neural, unilateral (Acute 02/16/16) Herpes simplex viremia (Acute 04/17/14) Congenital Migraine (Acute 02/05/14) Osteoporosis (Acute 04/17/14) T2= -2.9 11/11 Patellofemoral instability of both knees with pain (Acute 03/15/17) Transient visual disturbance, right (Acute 08/15/14) Trigger little finger of left hand (Acute 04/16/15) Body mass index 40.0-44.9, adult (Chronic) Intravenous drug abuse (Acute 04/17/14) Endometriosis (Acute 04/17/14) Depressive disorder (Chronic 04/17/14) Calculus of kidney (Acute 01/06/09) Bulimia (Acute 04/18/14) Anorexia (Acute 04/18/14) Alcohol abuse (Acute 04/17/14) Pericardial effusion (Acute) Fall (Acute) Localized superficial swelling, mass, or lump (Acute) Elevated cholesterol (Chronic) Vaginal bleeding (Acute) Status post hysterectomy with oophorectomy (Acute) History of endometriosis (Acute) Ankle sprain (Acute) Neck pain (Acute) Clavicle pain (Acute) Rash (Acute) Nasal congestion (Acute) Postnasal drip (Acute) Cough (Acute) SOB (shortness of breath) (Acute) Fever (Acute) Left foot pain (Acute) Left ankle pain (Acute) Elevated cholesterol (Chronic) Osteoporosis (Chronic) due to surgical menopause, low ca intake Insomnia (Acute) Equinus contracture of left ankle (Acute) 10/15/20 [facility] Enteropathic arthropathies, left ankle and foot (Acute) 09/23/20 Ferdinand Alvarez DPM - surgical recommendation Elevated LFTs (Acute) Elevated alkaline phosphatase level (Acute) Migraine, unspecified, intractable, without status migrainosus (Acute) Sensorineural hearing loss (SNHL) of both ears (Acute) hearing aids, L>R, left ear, per Audiometry Rpt 09/30/21 ([facility]). Order needed, medically cleared for hearing aids .. IK Neurogenic bladder (Acute) Lesion of lateral popliteal nerve, left lower limb (Acute) Per [facility] Injury of cutaneous sensory nerve at ankle and foot level, left leg, initial encounter (Acute) Per [facility] Peripheral nerve entrapment syndrome (Acute) Per [facility] Lesion of deep peroneal nerve (Acute) LEFT FOOT Bronchitis (Acute) COVID (Acute) Positive 04/13/22 Medical History Chronic pain of right knee Congenital stroke Deafness in left ear Endometriosis Gallstones GERD (gastroesophageal reflux disease) Heart burn Hemianopsia left Hemiparesis left-pt. ambulates with a limp History of alcohol abuse HSV infection Hx of drug abuse Hx of renal calculi Migraine Obstructive sleep apnea on CPAP 05/21/21f/u sleep clinic Retinal detachment, left Sleep-related bruxism Urinary incontinence Surgical History Cholecystectomy (06/05/17) EGD - MAC (04/18/17) Gastrocnemius equinus of left lower extremity (~10/2020) Laparotomy (06/11/17) drain placement, biloma left hand tendon surgery Oophrectomy, Both with hyst renal stent S/P nerve repair (~04/15/21) Dr Alvarez,DPM,[place] repair deep peroneal nerve dorsal surface L foot w/Axogen nerve wrap Trigger Finger release (05/13/15) L sm finger Dr Gilliam Vaginal hysterectomy 2003 for Endometriosis Family History Mother Breast cancer COPD (chronic obstructive pulmonary disease) Thyroid disorder Father Heart disease Grandmother Breast cancer Paternal Maternal Aunt Breast cancer paternal Sister Crohn's disease Social History Smoking/Tobacco Use Status: Former Tobacco Use Quit Date: 06/06/07 Smoking risk assessment performed?: Yes Alcohol Intake: former Drug use: Current Sobriety Substance use type: crack/cocaine Details: Sober for 20 years Caregiver/Support person: No Housing: apartment Number of Children: 3 Communication Needs: None Education Level: high school current occupation: Disability Pets and animals: Yes Pets and animals: cat(s) Current gender identity: female What type of physical activity do you participate in: resistance training Frequency: 1-2 times per week Seatbelt use: always Water heater temp set <120 deg: Yes Working smoke detector in home: Yes Fire extinguisher in home: Yes Carbon monox detector in home: Yes Firearms in home: No Do you feel safe at home: Yes Do you feel safe in your relationship?: Yes Female Reproductive History Menstrual Menopause type: surgical History History 3 Para 3 Hx # Term Pregnancies Multiple births Hx # Pregnancies Ectopic pregnancies AB induced Hx Number of Living Children AB spontaneous Course Vital Signs Vital signs: Vital Signs Temperature 36.6 C 03/23/23 12:46 Pulse 66 03/23/23 12:46 Respiratory Rate 18 03/23/23 12:46 Blood Pressure 121/87 03/23/23 12:46 Pulse Oximetry 95 03/23/23 12:46 Temperature 36.6 C 03/23/23 12:46 Temperature Source Skin 03/23/23 12:46 Pulse 66 03/23/23 12:46 Respiratory Rate 18 03/23/23 12:46 Respiratory Effort Normal 03/23/23 12:48 Blood Pressure 121/87 03/23/23 12:46 Blood Pressure Position Sitting 03/23/23 12:46 Pulse Oximetry 95 03/23/23 12:46 Oxygen Delivery Method Room Air 03/23/23 12:46 Oxygen Flow Rate 0 03/23/23 12:46
== END 2023-03-23 14:10 | disposition home or self-care (01) ==
LOC: ER 14:34
PROVIDERS: Emergency Provider Physician Assistant; PCP Nurse Practitioner
DX: M25.512 Pain in left shoulder (principal); S63.92XA Sprain of unspecified part of left wrist and hand, initial encounter; W19.XXXA Unspecified fall, initial encounter
CPT/HCPCS: 99284; 73030; 73080; 73110

== ENCOUNTER 2023-04-03 01:19 | Emergency (ER) | payer MEDICAID, SELFPAY ==
[2023-04-03 01:23] VITALS: BP 124/55; RESP 16; TEMP 36.4; O2SAT 97
--- NOTE | 2023-04-03 01:40 | W.ED.GENAD ---
Discharge Plan Disposition Patient Disposition: Home Condition: Good Discharge Details Clinical Impression: Kidney stone Primary Care Provider: Laura Hidalgo ED Provider: Evi Billingsley Home Meds and New Rx's Prescriptions: New tamsulosin [Flomax] 0.4 mg capsule 0.4 mg PO DAILY Qty: 14 0RF No Action valacyclovir [Valtrex] 500 mg tablet 500 mg PO DAILY Qty: 90 3RF fluticasone propionate [Flonase Allergy Relief] 50 mcg/actuation spray,suspension 2 spray intranasal DAILY Qty: 15.8 8RF Rx Instructions: administer into each nostril Elder Rousseau PO baclofen 10 MG tablet 10 mg PO TID Patient Comments: 11/08/17-dose decr per Dr Welsh- meloxicam 7.5 MG tablet 7.5 mg PO DAILY Qty: 30 Rx Instructions: Dr. Welsh, [facility] aspirin 325 MG tablet 325 mg PO DAILY cyanocobalamin (vitamin B-12) 1,000 MCG tablet 1,000 mcg PO DAILY cholecalciferol (vitamin D3) 1,250 mcg (50,000 unit) capsule 1,250 mcg PO QWEEK Rx Instructions: per note dated 05/25/21 [facility] rizatriptan 10 mg tablet See Rx Instructions PO .COMPLEX Qty: 7 6RF Rx Instructions: take 1 tab at onset of headache; if no relief may repeat 1 tab after at least 2 hrs; max = 3 tabs/24 hr PO topiramate 25 mg tablet 25 mg PO BID Qty: 180 3RF Rx Instructions: 11/07/17-decr dose per Dr. Welsh's ov-LH (DME) hearing aids See Rx Instructions .Route .MEDSUPPLY Qty: 1 0RF Rx Instructions: medically cleared for hearing aids riboflavin (vitamin B2) 100 mg tablet 200 mg PO BID Rx Instructions: per [facility] note dated 12/31/21 cc magnesium oxide 400 mg magnesium capsule 400 mg PO DAILY Patient Comments: 05/06/22 visit atorvastatin 20 mg tablet See Rx Instructions .ROUTE .COMPLEX Qty: 90 3RF Dose Instruction: TAKE ONE TABLET BY MOUTH EVERY EVENING Rx Instructions: TAKE ONE TABLET BY MOUTH EVERY EVENING oxybutynin chloride 5 mg tablet 5 mg PO DAILY albuterol sulfate [ProAir HFA] 90 mcg/actuation HFA aerosol inhaler 2 puff Inhalation QID PRN (Reason: shortness of breath or wheezing) Qty: 18 12RF amitriptyline 50 MG tablet 50 mg PO HS calcium carbonate 500 MG tablet,chewable 500 mg CH DAILY multivitamin [Daily Multi-Vitamin] 1 EACH tablet 1 ea PO DAILY Discharge Instructions Instructions: Kidney Stones (ED) Additional Instructions: Tylenol and ibuprofen (or naproxen) over the counter as needed for pain; follow the directions on the bottle. Stay hydrated. Take flomax once a day. Follow up with urology; they will call. Return to the emergency department for new or worsening symptoms including fever, new/different/worse pain, or if you have any other concerns. Referrals: [facility] [Provider Group] Laura Hidalgo NP [Primary Care Provider] - Medical Decision Making 48yo F with cerebral palsy, left hemiparesis, seizures, left eye blindness 2/t HSV, chronic urinary incontinence, presenting with suprapubic abdominal pain radiating to her left flank. History from patient, family, and [facility] record review. Symptoms started 2 days ago and has been worsening. Has also noted blood in her urine. Vital signs reassuring on arrival. Not septic. Had hysterectomy and BSO at age 28 for endometriosis so not concerning for ectopic /ovarian torsion/tuboovarian abscess/etc. Will treat pain with toradol, tylenol. Labs reviewed as below, CBC & CMP reassuring with no actionable abnormalities. UA with +RBC, negative for infection. Not UTI or pyleonephritis. CT abd/pelvis independently reviewed, no bowel obstruction (though large stool burden) on my view; agree with radiology read below small 2mm stone at UVJ, slight left hydronephrosis Likely cause of patient's symptoms. On reassessment she reports pain has improved though is still significant; offered dose of opiate medication here which she declined 2/t hx of drug abuse which is reasonable. Prescribed flomax and discharged home to followup with urology. Discharge instructions including return precautions were reviewed with patient who verbalized understanding. All questions were answered and they are in full agreement with the plan. Medical Records Medical records reviewed: Yes I reviewed the patient's medical records. Medical records narrative: Note clinic visit 02/08/23, ortho visit 03/30/23 Imaging Data Radiologic Study: Imaging: CT Scan Radiologist's impression: IMPRESSION: 2 mm calculus at the left UVJ with minimal left hydroureteronephrosis. Lab Data Lab results reviewed: Yes I reviewed the patient's lab results. Labs: Laboratory Tests Range/Units 04/03/23 01:36 WBC (4.4-10.8) 10^3/uL 8.20 RBC (3.93-5.22) 10^6/uL 4.76 Hgb (11.2-15.7) g/dL 13.9 Hct (36.0-46.0) % 41.0 MCV (80-95) fL 86 MCH (27.0-33.0) pg 29.2 MCHC (32.0-36.0) % 33.9 RDW (11.7-14.6) % 12.3 Plt Count (130-400) 10^3/uL 227 MPV (8.0-11.0) fL 10.6 Immature Gran % 0.4 Neutrophils % 70.2 Lymphocytes % 21.8 Monocytes % 5.9 Eosinophils % 1.2 Basophils % 0.5 Nucleated RBC % (0.0-0.3) % 0.0 Absolute Neutrophils (1.2-6.7) 10^3/uL 5.76 Absolute Lymphocytes (1.2-3.4) 10^3/uL 1.79 Absolute Monocytes (0.1-0.8) 10^3/uL 0.48 Absolute Eosinophils (0.0-0.7) 10^3/uL 0.10 Absolute Basophils (0.0-0.2) 10^3/uL 0.04 Sodium (136-145) mmol/L 139 Potassium (3.5-5.1) mmol/L 3.4 L Chloride (98-107) mmol/L 104 Carbon Dioxide (21.0-32.0) mmol/L 23.6 Anion Gap (3-11) mmol/L 11.4 H BUN (7-18) mg/dL 18 Creatinine (0.55-1.02) mg/dL 1.1 H Est GFR (CKD-EPI 2020) (mL/min/1.73m2) 61.60 Glucose (74-106) mg/dL 131 H Calcium (8.5-10.1) mg/dL 9.6 Total Bilirubin (0.2-1.0) mg/dL 0.5 AST (15-37) U/L 27 ALT (14-59) U/L 43 Alkaline Phosphatase (46-116) U/L 127 H Total Protein (6.4-8.2) g/dL 7.6 Albumin (3.4-5.0) g/dL 4.0 Urine Color (Yellow) Yellow Urine Clarity (Clear) Clear Urine pH (5-8) 6.0 Ur Specific [place] (1.005-1.025) 1.020 Urine Protein (Negative) mg/dL Negative Urine Ketones (Negative) mg/dL Negative Urine Blood (Negative) Moderate H Urine Nitrite (Negative) Negative Urine Bilirubin (Negative) Negative Urine Urobilinogen (Up to 0.2) mg/dL 0.2 Ur Leukocyte Esterase (Negative) Negative Urine RBC (0-2) HPF 10-20 H Urine WBC (0-5) HPF Negative Ur Epithelial Cells (Negative) HPF Rare Urine Crystals (Negative) HPF Negative Urine Bacteria (Negative) HPF Rare Urine Casts (Negative) LPF Negative Urine Mucus (Negative) Negative Ur Culture Indicated? No Urine Glucose (Negative) mg/dL Negative HPI General Mode of arrival: ambulatory. Date/Time Provider Initiated Documentation: 04/03/23 01:23. Limitations to Documentation: no limitations. Information obtained by: patient and family. HPI Narrative: 48yo F with cerebral palsy, left hemiparesis, seizures, left eye blindness 2/t HSV, chronic urinary incontinence, presenting with suprapubic abdominal pain radiating to her left flank. History from patient, family, and [facility] record review. Symptoms started 2 days ago and has been worsening. Has also noted blood in her urine. Hx prior kidney stones but they did not feel like this. S/P Hysterectomy and BSO at age 28 for Endometriosis. Pain is severe, suprapubic, comes in waves. No pain with urination, seems to be urinating more frequently with less volume. On episode of vomiting today, nonbloody non bilious. No diarrhea. Did fall three days ago and injure her left arm; did not have abdominalor pelvic pain at the time of the fall. She is otherwise in her usual state of health with no fevers, chills, rash, new weakness or numbness, or other concerns. Related Data Home Medications Medication Instructions Recorded Confirmed baclofen 10 mg tablet 10 mg PO TID 01/29/13 04/03/23 amitriptyline 50 mg tablet 50 mg PO HS 02/13/13 03/30/23 calcium carbonate 200 mg calcium 500 mg CH DAILY 02/13/13 03/30/23 (500 mg) chewable tablet multivitamin (Daily Multi-Vitamin 1 ea PO DAILY 02/13/13 03/30/23 tablet) meloxicam 7.5 mg tablet 7.5 mg PO DAILY #30 tab-caps 07/29/15 04/03/23 aspirin 325 mg tablet 325 mg PO DAILY 02/21/17 03/30/23 cyanocobalamin (vitamin B-12) 1,000 mcg PO DAILY 02/21/17 04/03/23 1,000 mcg tablet Elder Rousseau PO 03/09/21 03/30/23 cholecalciferol (vitamin D3) 1,250 1,250 mcg PO QWEEK 05/25/21 04/03/23 mcg (50,000 unit) capsule rizatriptan 10 mg tablet See Rx Instructions PO .COMPLEX #7 07/20/21 04/03/23 tabs topiramate 25 mg tablet 25 mg PO BID #180 tabs 07/20/21 04/03/23 hearing aids #1 ea 10/02/21 03/30/23 riboflavin (vitamin B2) 100 mg 200 mg PO BID 01/06/22 04/03/23 tablet magnesium oxide 400 mg PO DAILY 05/11/22 03/30/23 atorvastatin 20 mg tablet See Rx Instructions .Route 08/11/22 04/03/23 .COMPLEX #90 tabs valacyclovir 500 mg tablet 500 mg PO DAILY #90 tab-caps 10/11/22 04/03/23 (Valtrex) fluticasone propionate 50 2 spray intranasal DAILY #15.8 mL 01/03/23 04/03/23 mcg/actuation nasal spray,suspension (Flonase Allergy Relief) oxybutynin chloride 5 mg tablet 5 mg PO DAILY 01/03/23 04/03/23 albuterol sulfate 90 mcg/actuation 2 puff inhalation QID PRN 02/15/23 04/03/23 aerosol inhaler (ProAir HFA) shortness of breath or wheezing #18 grams tamsulosin 0.4 mg capsule (Flomax) 0.4 mg PO DAILY #14 caps 04/03/23 Previous Rx's Medication Instructions Recorded rizatriptan 10 mg tablet See Rx Instructions PO .COMPLEX #7 07/20/21 tabs topiramate 25 mg tablet 25 mg PO BID #180 tabs 07/20/21 hearing aids #1 ea 10/02/21 atorvastatin 20 mg tablet See Rx Instructions .Route 08/11/22 .COMPLEX #90 tabs valacyclovir 500 mg tablet 500 mg PO DAILY #90 tab-caps 10/11/22 (Valtrex) fluticasone propionate 50 2 spray intranasal DAILY #15.8 mL 01/03/23 mcg/actuation nasal spray,suspension (Flonase Allergy Relief) albuterol sulfate 90 mcg/actuation 2 puff inhalation QID PRN 02/15/23 aerosol inhaler (ProAir HFA) shortness of breath or wheezing #18 grams tamsulosin 0.4 mg capsule (Flomax) 0.4 mg PO DAILY #14 caps 04/03/23 Allergies Allergy/AdvReac Type Severity Reaction Status Date / Time fluconazole Allergy Severe SEIZURE Verified 03/30/23 14:46 Sulfa (Sulfonamide Allergy Severe SEIZURE Verified 03/30/23 14:46 Antibiotics) trimethoprim Allergy Intermediate UNKNOWN Verified 03/30/23 14:46 General Stated Complaint: GenMedical JACOB: 3 Review of Systems Narrative: see HPI PFSH All Active Problems (Updated 04/03/23 @ 03:30 by Evi Billingsley MD) Kidney stone (Chronic) Left wrist sprain (Acute) Acute pain of left shoulder (Acute) Fracture of proximal end of left humerus (Acute ~12/14/22) Contusion of arm, left, multiple sites (Acute) Biloma following surgery (Acute) NATALIIA (obstructive sleep apnea) (Chronic) Acquired absence of both cervix and uterus (Acute 01/03/12) Hyst for endometriosis Acute retinal necrosis of left eye (Acute 04/18/14) Afferent pupillary defect of left eye (Acute 08/15/14) Asthma (Acute 04/17/14) Blindness of left eye (Acute 08/15/14) Cerebral palsy, infantile hemiplegia (Acute 04/17/14) left hemiparesis HSV infection (Acute 02/05/14) Hearing loss, neural, unilateral (Acute 02/16/16) Herpes simplex viremia (Acute 04/17/14) Congenital Migraine (Acute 02/05/14) Osteoporosis (Acute 04/17/14) T2= -2.9 11/11 Patellofemoral instability of both knees with pain (Acute 03/15/17) Transient visual disturbance, right (Acute 08/15/14) Trigger little finger of left hand (Acute 04/16/15) Body mass index 40.0-44.9, adult (Chronic) Intravenous drug abuse (Acute 04/17/14) Endometriosis (Acute 04/17/14) Depressive disorder (Chronic 04/17/14) Calculus of kidney (Acute 01/06/09) Bulimia (Acute 04/18/14) Anorexia (Acute 04/18/14) Alcohol abuse (Acute 04/17/14) Pericardial effusion (Acute) Fall (Acute) Localized superficial swelling, mass, or lump (Acute) Elevated cholesterol (Chronic) Vaginal bleeding (Acute) Status post hysterectomy with oophorectomy (Acute) History of endometriosis (Acute) Ankle sprain (Acute) Neck pain (Acute) Clavicle pain (Acute) Rash (Acute) Nasal congestion (Acute) Postnasal drip (Acute) Cough (Acute) SOB (shortness of breath) (Acute) Fever (Acute) Left foot pain (Acute) Left ankle pain (Acute) Elevated cholesterol (Chronic) Osteoporosis (Chronic) due to surgical menopause, low ca intake Insomnia (Acute) Equinus contracture of left ankle (Acute) 10/15/20 [facility] Enteropathic arthropathies, left ankle and foot (Acute) 09/23/20 Ferdinand Alvarez DPM - surgical recommendation Elevated LFTs (Acute) Elevated alkaline phosphatase level (Acute) Migraine, unspecified, intractable, without status migrainosus (Acute) Sensorineural hearing loss (SNHL) of both ears (Acute) hearing aids, L>R, left ear, per Audiometry Rpt 09/30/21 ([facility]). Order needed, medically cleared for hearing aids .. 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 ambulates with a limp History of alcohol abuse HSV infection Hx of drug abuse Hx of renal calculi Migraine Obstructive sleep apnea on CPAP 05/21/21f/u sleep clinic Retinal detachment, left Sleep-related bruxism Urinary incontinence Surgical History Cholecystectomy (06/05/17) EGD - MAC (04/18/17) Gastrocnemius equinus of left lower extremity (~10/2020) Laparotomy (06/11/17) drain placement, biloma left hand tendon surgery Oophrectomy, Both with hyst renal stent S/P nerve repair (~04/15/21) Dr Alvarez,DPM,[place] repair deep peroneal nerve dorsal surface L foot w/Axogen nerve wrap Trigger Finger release (05/13/15) L sm finger Dr Gilliam Vaginal hysterectomy 2003 for Endometriosis Family History Mother Breast cancer COPD (chronic obstructive pulmonary disease) Thyroid disorder Father Heart disease Grandmother Breast cancer Paternal Maternal Aunt Breast cancer paternal Sister Crohn's disease Social History Smoking/Tobacco Use Status: Former Tobacco Use Quit Date: 06/06/07 Smoking risk assessment performed?: Yes Alcohol Intake: former Drug use: Current Sobriety Substance use type: crack/cocaine Details: Sober for 20 years Caregiver/Support person: No Housing: apartment Number of Children: 3 Communication Needs: None Education Level: high school current occupation: Disability Pets and animals: Yes Pets and animals: cat(s) Current gender identity: female What type of physical activity do you participate in: resistance training Frequency: 1-2 times per week Seatbelt use: always Water heater temp set <120 deg: Yes Working smoke detector in home: Yes Fire extinguisher in home: Yes Carbon monox detector in home: Yes Firearms in home: No Do you feel safe at home: Yes Do you feel safe in your relationship?: Yes Female Reproductive History Menstrual Menopause type: surgical History History 3 Para 3 Hx # Term Pregnancies Multiple births Hx # Pregnancies Ectopic pregnancies AB induced Hx Number of Living Children AB spontaneous Exam Narrative Exam Narrative: General: Alert, well appearing, appears uncomfortable. Obese. Head: Normocephalic, atraumatic Neck: Trachea midline, Neck supple. ENT: MMM. Cardiac: RRR, no murmurs appreciated Resp: No respiratory distress. CTAB. Abd: Soft, non-distended. Suprapubic TTP with no rebound or guarding. : + CVA tenderness on left Pelvis: Stable, nontender to lateral compression. Extremities: No deformities. No peripheral edema. Neurologic: GCS 15. Course Vital Signs Vital signs: Vital Signs Temperature 36.4 C L 04/03/23 01:23 Respiratory Rate 16 04/03/23 01:23 Blood Pressure 124/55 L 04/03/23 01:23 Pulse Oximetry 97 04/03/23 01:23 Temperature 36.4 C L 04/03/23 01:23 Temperature Source Oral 04/03/23 01:23 Respiratory Rate 16 04/03/23 01:23 Blood Pressure 124/55 L 04/03/23 01:23 Blood Pressure Position Supine 04/03/23 01:23 Pulse Oximetry 97 04/03/23 01:23 Oxygen Delivery Method Room Air 04/03/23 01:23 Oxygen Flow Rate 0 04/03/23 01:23 Pain Level 10 04/03/23 01:23
[2023-04-03 01:51] VITALS: RESP 19
[2023-04-03 02:01] LABS: Bilirubin Negative (Negative); Blood Moderate (Negative); Clarity Clear (Clear); Glucose Negative (Negative); Ketones Negative (Negative); Leukocyte Esterase Negative (Negative); Nitrite Negative (Negative); Urobilinogen 0.2 mg/dL (Up to 0.2)
[2023-04-03 02:02] LABS: Abs Immature Grans 0.03 10^3/uL (0.0-0.06); Absolute Basophil Count 0.04 10^3/uL (0.0-0.2); Absolute Lymphocyte Count 1.79 10^3/uL (1.2-3.4); Absolute Monocyte Count 0.48 10^3/uL (0.1-0.8); Absolute Neutrophil Count 5.76 10^3/uL (1.2-6.7); Basophils % 0.5; Eosinophils % 1.2; HGB 13.9 g/dL (11.2-15.7); Immature Grans % 0.4; Lymphocytes % 21.8; MCH 29.2 pg (27.0-33.0); MCHC 33.9 % (32.0-36.0); MCV 86 fL (80-95); MPV 10.6 fL (8.0-11.0); Monocytes % 5.9; Neutrophils % 70.2; Platelet Count 227 10^3/uL (130-400); RBC 4.76 10^6/uL (3.93-5.22); RDW 12.3 % (11.7-14.6); RDW-SD 38.7 fL
[2023-04-03 02:04] LABS: Bacteria Rare HPF (Negative); C & S Indicated? No; Casts Negative LPF (Negative); Crystals Negative HPF (Negative); Epithelial Cells Rare HPF (Negative); Mucus Negative (Negative); WBC Negative HPF (0-5)
[2023-04-03] MEDS: Ondansetron 4 MG/2 ML VIAL IVP (02:12)
[2023-04-03] MEDS: ACETAMINOPHEN 1,000 MG/100 ML BTL 400 MG IVPB (02:12)
[2023-04-03] MEDS: Normal Saline 1,000 ML 1000 ML IV (02:13)
--- NOTE | 2023-04-03 02:15 | DI.CT_ITS ---
Exam(s) CT ABDOMEN PELVIS WO EXAM: CT ABDOMEN PELVIS WO CLINICAL HISTORY: flank pain, hematuria, concern for kidney stone. TECHNIQUE: Imaging Protocol: Axial computed tomography images with coronal and sagittal reformatted images were created and reviewed. Oral: no COMPARISON: CT CT CHEST/ABD/PEL W from 01/04/2019 FINDINGS: ABDOMEN: Lung Bases: Respiratory motion. Dependent changes. Liver: Enlarged. Fatty infiltration.. No measurable mass. Gallbladder and biliary tract: Status post cholecystectomy. No radiodense calculus or dilation. Pancreas: Normal density, no abnormal calcifications or inflammatory process. Spleen: Normal. Kidneys: Normal size, contour and axis. 2 millimeter calculus at the left ureteral jet vesicle juncti on causing mild left hydronephrosis. No additional calculi seen in either kidney or ureter. no mas ses seen. Adrenal glands: No masses seen. Lymph nodes: Within normal limits. Abdominal Aorta: Abdominal portion non-dilated. PELVIS: Bladder: Symmetric distention, no gross wall thickening. No mass or calcification. Bowel: No obstruction or bowel wall thickening. Peritoneal cavity: No ascites, collection or mesenteric inflammatory response. Reproductive organs: Status post hysterectomy. Bones: Within normal limits. Soft tissues: A tiny fatty containing umbilical hernia. IMPRESSION: Mild left hydronephrosis secondary to 2 millimeter calculus at the ureterovesical junction. No addit ional calculi. RADIATION DOSE DELIVERED: Total DLP DATA REPOSITORY: All CT scans at this facility are submitted to the National Radiology Data Registry (NRDR) Dose Index Registry (DIR) with the [employer] (ACR). RADIATION OPTIMIZATION: All CT scans at this facility use at least one of these dose optimization te chniques: automated exposure control; mA and/or kV adjustment per patient size (includes targeted exa ms where dose is matched to clinical indication); or iterative reconstruction.
[2023-04-03 02:17] LABS: ALT 43 U/L (14-59); AST 27 U/L (15-37); Alkaline Phosphatase 127 U/L (46-116); Anion Gap 11.4 mmol/L (3-11); BUN 18 mg/dL (7-18); Bilirubin, Total 0.5 mg/dL (0.2-1.0); CO2 23.6 mmol/L (21.0-32.0); CREATININE 1.1 mg/dL (0.55-1.02); Calcium 9.6 mg/dL (8.5-10.1); Chloride 104 mmol/L (98-107); Glucose 131 mg/dL (74-106); Potassium 3.4 mmol/L (3.5-5.1); Sodium 139 mmol/L (136-145); Total Protein 7.6 g/dL (6.4-8.2)
[2023-04-03] MEDS: Ketorolac 15 MG/ML VIAL IVP (02:21)
--- NOTE | 2023-04-03 03:11 | DI.VRAD_ITS ---
Addendum created by Stewart Patel MD on 04/03/2023 3:11:30 AM EDT: Addendum: Status post cholecystectomy. Initial report created on 04/03/2023 3:11:01 AM EDT: PROCEDURE INFORMATION: Exam: CT Abdomen And Pelvis Without Contrast Exam date and time: 04/03/2023 2:41 AM Age: 48 years old Clinical indication: Abdominal pain; Left; Patient HX: Flank pain, hematuria, concern for kidney stone TECHNIQUE: Imaging protocol: Computed tomography of the abdomen and pelvis without contrast. COMPARISON: CT CHEST/ABD/PEL W 01/04/2019 3:42 PM FINDINGS: Liver: Hepatic steatosis. Gallbladder and bile ducts: Normal. No calcified stones. No ductal dilation. Pancreas: Normal. No ductal dilation. Spleen: Normal. No splenomegaly. Adrenal glands: Normal. No mass. Kidneys and ureters: 2 mm calculus at the left UVJ with minimal left hydroureteronephrosis. Stomach and bowel: Unremarkable. No obstruction. No mucosal thickening. Appendix: No evidence of appendicitis. Intraperitoneal space: Unremarkable. No free air. No significant fluid collection. Vasculature: Unremarkable. No abdominal aortic aneurysm. Lymph nodes: Unremarkable. No enlarged lymph nodes. Urinary bladder: Unremarkable as visualized. Reproductive: Status post hysterectomy. Bones/joints: Unremarkable. No acute fracture. Soft tissues: Unremarkable. IMPRESSION: 2 mm calculus at the left UVJ with minimal left hydroureteronephrosis. Dictated and Authenticated by: Stewart Patel MD. Ordering:YASMINE Steve MD
--- NOTE | 2023-04-03 03:52 | NUR.NOTE ---
Pt placed on care management referral list for Urology for a kidney stone to be seen within 1-[address] Billingsley
--- NOTE | 2023-04-03 11:12 | NUR.NOTE ---
Referral faxed to [facility] Urology for kidney stone to be seen in 1 to 2 weeks. Nursing Note:
== END 2023-04-03 03:30 | disposition home or self-care (01) ==
PROVIDERS: Emergency Provider Student in an Organized Health Care Education/Training Program; PCP Nurse Practitioner
DX: N13.2 Hydronephrosis with renal and ureteral calculous obstruction (principal); K76.0 Fatty (change of) liver, not elsewhere classified; G80.8 Other cerebral palsy; G40.909 Epilepsy, unspecified, not intractable, without status epilepticus; Z90.49 Acquired absence of other specified parts of digestive tract; Z79.82 Long term (current) use of aspirin
CPT/HCPCS: 80053; 96361; 96374; 96375; 99284; 74176; 81003; 81015; 85025; J0131; J1885; J2405

== ENCOUNTER → 2023-04-06 02:15 | Outpatient (CLI) | payer MEDICAID, SELFPAY ==
--- NOTE | 2023-04-06 09:35 | DI.MAMMO_ITS ---
Exam(s) MAMMO SCREENING EXAM: MAMMO SCREENING CLINICAL HISTORY: screening,z12.39 TECHNIQUE: Mammograms were interpreted according to the usual protocol including computer analysis w [employer] CAD system, tomosynthesis and C-view imaging. COMPARISON: 2014 through 2021 FINDINGS: The breasts are composed of scattered fibroglandular densities, Breast Density category B. No suspicious masses or suspicious microcalcifications are seen. No skin thickening or abnormal axillary lymph nodes are seen. There has been no significant change from prior exams. IMPRESSION: BI-RADS Category 1, Negative mammogram Yearly screening mammography is recommended. Breast Density - Category B, scattered fibroglandular densities. A negative radiographic report should not delay biopsy if a dominant or clinically suspicious mass is present. Up to ten percent of cancers are not identified on mammography. A negative report may reinforce clinical impression. Adenosis and dense breasts may obscure an underlying neoplasm. False positive reports average 6 to 10%. Patient will receive a letter notifying them of these results.
== END ==
PROVIDERS: PCP Nurse Practitioner; Visit Provider Nurse Practitioner
DX: Z12.31 Encounter for screening mammogram for malignant neoplasm of breast (principal); R92.323 Mammographic fibroglandular density, bilateral breasts
CPT/HCPCS: 77063; 77067

== ENCOUNTER 2023-09-12 12:28 | Emergency (ER) | payer MEDICAID, SELFPAY ==
[2023-09-12 12:40] VITALS: BP 126/74; PULSE 83; RESP 16; TEMP 37.1; O2SAT 96
--- NOTE | 2023-09-12 13:15 | DI.RAD_ITS ---
Exam(s) XR FINGER LT INDEX EXAM: XR FINGER LT INDEX CLINICAL HISTORY: fall. TECHNIQUE: 2D digital imaging was performed. Three views. COMPARISON: None. FINDINGS: Lateral view is suboptimally positioned. BONES: No acute fracture is present. No bony destructive lesion is seen. JOINTS: No dislocation present. SOFT TISSUE: Normal. IMPRESSION: No evidence of acute fracture, dislocation, or subluxation. DATA REPOSITORY: RADIATION DOSE DELIVERED:
--- NOTE | 2023-09-12 13:15 | DI.RAD_ITS ---
Exam(s) XR KNEE RT 3V AP,LAT,KAREN EXAM: XR KNEE RT 3V AP,LAT,KAREN CLINICAL HISTORY: fall. TECHNIQUE: 2D digital imaging was performed. COMPARISON: CR XR KNEE LT 4V AP,LAT,KAREN,PAT from 07/04/2019 FINDINGS: 3 views No evidence of fracture or joint effusion. There are mild degenerative changes in the medial compart ment. Bone density normal. No osseous lesions. IMPRESSION: No acute fracture nor joint effusion. DATA REPOSITORY: RADIATION DOSE DELIVERED:
--- NOTE | 2023-09-12 13:15 | DI.CT_ITS ---
Exam(s) CT HEAD CERVICAL SPINE WO EXAM: CT HEAD CERVICAL SPINE WO CLINICAL HISTORY: fall, left orbit and frontal pain. TECHNIQUE: Imaging Protocol: Axial computed tomography images with coronal and sagittal reformatted images were created and reviewed COMPARISON: CT CT HEAD CERVICAL SPINE WO from 01/04/2019 FINDINGS: Head CT Ventricles and Extra axial spaces: Normal in size and morphology for the patient's age. Hemorrhage: None. Cerebral parenchyma: No evidence of mass or acute infarct. Stable area of encephalomalacia in the right parietal lobe. Midline shift: None. Brainstem/Cerebellum: Normal. Calvarium: Normal. Visualized Paranasal sinuses/Mastoids: Clear. Soft tissues: Unremarkable. Surgery to the left globe. Cervical Spine CT BONES: Vertebral body heights are maintained. Alignment is normal. There is no evidence of acute frac ture. Significant degenerative disc changes and facet degenerative changes are seen . SOFT TISSUES: No paraspinal hematoma. The airway appears intact. No pneumothorax is seen at the lung apices. IMPRESSION: Head CT: Old area of right parietal encephalomalacia. No acute abnormality. C-spine CT: no acute abnormality. RADIATION DOSE DELIVERED: Total DLP DATA REPOSITORY: All CT scans at this facility are submitted to the National Radiology Data Registry (NRDR) Dose Index Registry (DIR) with the [employer] (ACR). RADIATION OPTIMIZATION: All CT scans at this facility use at least one of these dose optimization te chniques: automated exposure control; mA and/or kV adjustment per patient size (includes targeted exa ms where dose is matched to clinical indication); or iterative reconstruction.
--- NOTE | 2023-09-12 13:15 | DI.RAD_ITS ---
Exam(s) XR CHEST 2V PA LATERAL EXAM: XR CHEST 2V PA LATERAL CLINICAL HISTORY: fall TECHNIQUE: 2D digital imaging was performed. Two views. COMPARISON: CR XR PORTABLE CHEST AP from 08/31/2019 FINDINGS: HEART: Normal size. Aorta: Not dilated. PULMONARY VASCULATURE: Normal. LUNGS: Clear. PLEURAL SPACE: No pleural effusion or pneumothorax. BONE:Unremarkable for age. Soft tissues: Unremarkable. IMPRESSION: No acute abnormality. DATA REPOSITORY: RADIATION DOSE DELIVERED:
--- NOTE | 2023-09-12 13:20 | ED.GENADUL_ITS ---
Discharge Plan Disposition Patient Disposition: Home Condition: Improving Discharge Details Chief Complaint: Fall/Non TraumaCriteria Clinical Impression: Contusion of face Primary Care Provider: Laura Hidalgo ED Provider: Hermann Bob Home Meds and New Rx's Prescriptions: No Action fluticasone propionate [Flonase Allergy Relief] 50 mcg/actuation spray,suspension 2 spray intranasal DAILY Qty: 15.8 8RF Rx Instructions: administer into each nostril atorvastatin 20 mg tablet See Rx Instructions .ROUTE .COMPLEX Qty: 90 3RF Dose Instruction: TAKE ONE TABLET BY MOUTH EVERY EVENING Rx Instructions: TAKE ONE TABLET BY MOUTH EVERY EVENING valacyclovir [Valtrex] 500 mg tablet 500 mg PO DAILY Qty: 90 3RF Elder Rousseau 1 tab PO DAILY baclofen 10 MG tablet 10 mg PO TID Patient Comments: 11/08/17-dose decr per Dr Welsh- meloxicam 7.5 MG tablet 7.5 mg PO DAILY Qty: 30 Rx Instructions: Dr. Welsh, [facility] aspirin 325 MG tablet 325 mg PO DAILY cyanocobalamin (vitamin B-12) 1,000 MCG tablet 1,000 mcg PO DAILY cholecalciferol (vitamin D3) 1,250 mcg (50,000 unit) capsule 1,250 mcg PO QWEEK Rx Instructions: per note dated 05/25/21 [facility]gc rizatriptan 10 mg tablet See Rx Instructions PO .COMPLEX Qty: 7 6RF Rx Instructions: take 1 tab at onset of headache; if no relief may repeat 1 tab after at least 2 hrs; max = 3 tabs/24 hr PO (DME) hearing aids See Rx Instructions .Route .MEDSUPPLY Qty: 1 0RF Rx Instructions: medically cleared for hearing aids oxybutynin chloride 5 mg tablet 5 mg PO DAILY albuterol sulfate [ProAir HFA] 90 mcg/actuation HFA aerosol inhaler 2 puff Inhalation QID PRN (Reason: shortness of breath or wheezing) Qty: 18 12RF amitriptyline 50 MG tablet 50 mg PO HS calcium carbonate 500 MG tablet,chewable 500 mg CH DAILY multivitamin [Daily Multi-Vitamin] 1 EACH tablet 1 ea PO DAILY Discharge Instructions Instructions: Contusion in Adults (ED) HPI General Date/Time Provider Initiated Documentation: 09/12/23 12:54 . HPI Narrative: 48-year-old female history of cerebral palsy, left-sided chronic deficits, presents after mechanical fall forward onto step into a doorway, hitting her left face, pain to left orbital region and forehead, no loss of conscious, no nausea no vomiting, patient also endorses right-sided paresthesia right upper and right lower extremity as well as knee pain and left finger pain Related Data Home Medications Medication Instructions Recorded Confirmed baclofen 10 mg tablet 10 mg PO TID 01/29/13 09/12/23 amitriptyline 50 mg tablet 50 mg PO HS 02/13/13 09/12/23 calcium carbonate 200 mg calcium 500 mg CH DAILY 02/13/13 09/12/23 (500 mg) chewable tablet multivitamin (Daily Multi-Vitamin 1 ea PO DAILY 02/13/13 09/12/23 tablet) meloxicam 7.5 mg tablet 7.5 mg PO DAILY #30 tab-caps 07/29/15 09/12/23 aspirin 325 mg tablet 325 mg PO DAILY 02/21/17 09/12/23 cyanocobalamin (vitamin B-12) 1,000 mcg PO DAILY 02/21/17 09/12/23 1,000 mcg tablet Elder Rousseau 1 tab PO DAILY 03/09/21 09/12/23 cholecalciferol (vitamin D3) 1,250 1,250 mcg PO QWEEK 05/25/21 09/12/23 mcg (50,000 unit) capsule rizatriptan 10 mg tablet See Rx Instructions PO .COMPLEX #7 07/20/21 09/12/23 tabs hearing aids #1 ea 10/02/21 09/12/23 fluticasone propionate 50 2 spray intranasal DAILY #15.8 mL 01/03/23 09/12/23 mcg/actuation nasal spray,suspension (Flonase Allergy Relief) oxybutynin chloride 5 mg tablet 5 mg PO DAILY 01/03/23 09/12/23 albuterol sulfate 90 mcg/actuation 2 puff inhalation QID PRN 02/15/23 09/12/23 aerosol inhaler (ProAir HFA) shortness of breath or wheezing #18 grams atorvastatin 20 mg tablet See Rx Instructions .Route 08/09/23 09/12/23 .COMPLEX #90 tabs valacyclovir 500 mg tablet 500 mg PO DAILY #90 tab-caps 08/09/23 09/12/23 (Valtrex) Previous Rx's Medication Instructions Recorded rizatriptan 10 mg tablet See Rx Instructions PO .COMPLEX #7 07/20/21 tabs hearing aids #1 ea 10/02/21 fluticasone propionate 50 2 spray intranasal DAILY #15.8 mL 01/03/23 mcg/actuation nasal spray,suspension (Flonase Allergy Relief) albuterol sulfate 90 mcg/actuation 2 puff inhalation QID PRN 02/15/23 aerosol inhaler (ProAir HFA) shortness of breath or wheezing #18 grams atorvastatin 20 mg tablet See Rx Instructions .Route 08/09/23 .COMPLEX #90 tabs valacyclovir 500 mg tablet 500 mg PO DAILY #90 tab-caps 08/09/23 (Valtrex) Allergies Allergy/AdvReac Type Severity Reaction Status Date / Time fluconazole Allergy Severe SEIZURE Verified 09/12/23 13:31 Sulfa (Sulfonamide Allergy Severe SEIZURE Verified 09/12/23 13:31 Antibiotics) trimethoprim Allergy Intermediate UNKNOWN Verified 09/12/23 13:31 General Stated Complaint: Fall/Non TraumaCriteria JACOB: 3 Review of Systems Narrative: Review of Systems Constitutional: negative Eyes: negative ENT: negative Cardiovascular: negative Respiratory: negative Gastrointestinal: negative : negative Musculoskeletal: Finger pain, knee pain, neck pain, facial pain Skin: negative Neurologic: negative Psych: negative Exam Narrative Exam Narrative: Physical Examination General: alert, awake, cooperative, resting comfortably, no acute distress HEENT: normocephalic, mild contusion to left brow; PERRL, EOM intact, con junctiva normal; no nasal discharge; moist mucous membranes, oral and pharyngeal mucosa normal, tolerating secretions Neck: supple, trachea midline, left paraspinal neck discomfort no midline tenderness Chest: normal to inspection Respiratory: normal respiratory effort, speaking in full sentences, clear to auscultation, no wheezing, rales or rhonchi Cardiac: regular rate, regular rhythm, S1S2 intact, no murmurs rubs or gallops GI: abdomen soft, non-tender, non-distended; no palpable mass or hepatosplenomegaly Back: No midline tenderness step-off crepitus or deformity Skin: no lesions, rashes or trauma appreciated Neuro: AAOx3, normal speech, moving all extremities; chronic left-sided deficits 4-5 strength left upper and left lower extremity, 5 out of 5 strength upper right and lower right extremity, sensation to light touch intact bilaterally Extremities: Full range of motion fingers hands wrists elbows shoulders, no deformity no step-off no crepitus, warm well-perfused sensate limbs; full range of motion hip knee ankle foot no deformity effusion or induration noted Psych: Appropriate mood and affect Course Vital Signs Vital signs: Vital Signs Temperature 37.1 C 09/12/23 12:40 Pulse 83 09/12/23 12:40 Respiratory Rate 16 09/12/23 12:40 Blood Pressure 126/74 09/12/23 12:40 Pulse Oximetry 96 09/12/23 12:40 Temperature 37.1 C 09/12/23 12:40 Temperature Source Tympanic 09/12/23 12:40 Pulse 83 09/12/23 12:40 Respiratory Rate 16 09/12/23 12:40 Blood Pressure 126/74 09/12/23 12:40 Pulse Oximetry 96 09/12/23 12:40 Oxygen Delivery Method Room Air 09/12/23 12:40 Oxygen Flow Rate 0 09/12/23 12:40 Pain Level 7 09/12/23 12:40 Medical Decision Making 48-year-old female history of cerebral palsy left-sided chronic deficits presents with facial injury left brow contusion after mechanical trip and fall in a stairway, ground-level fall no loss of consciousness, no vomiting alert oriented interactive neurologically at baseline, likely simple contusions of face hand and knee, however given sensation of paresthesia right upper and right lower extremity must consider intracranial process such as intracerebral hemorrhage low suspicion for spinal cord injury. Paraspinal/left lateral neck discomfort no midline spinal tenderness step-off crepitus or deformity. Will obtain CT head CT C-spine, analgesia anti-inflammatory x-ray of involved limbs. 16: 30 patient resting comfortably no acute distress. Improving with medication. Imaging unremarkable. Quality:SDOH Health Related Social Needs: No Data to Display PFSH All Active Problems (Updated 09/12/23 @ 16:31 by Hermann Bob MD) Contusion of face (Acute) Constipation (Acute) Mixed stress and urge urinary incontinence (Acute) Fracture of proximal end of left humerus (Acute ~12/14/22) Contusion of arm, left, multiple sites (Acute) Biloma following surgery (Acute) NATALIIA (obstructive sleep apnea) (Chronic) Acquired absence of both cervix and uterus (Acute 01/03/12) Hyst for endometriosis Acute retinal necrosis of left eye (Acute 04/18/14) Afferent pupillary defect of left eye (Acute 08/15/14) Asthma (Acute 04/17/14) Blindness of left eye (Acute 08/15/14) Cerebral palsy, infantile hemiplegia (Acute 04/17/14) left hemiparesis HSV infection (Acute 02/05/14) Hearing loss, neural, unilateral (Acute 02/16/16) Herpes simplex viremia (Acute 04/17/14) Congenital Migraine (Acute 02/05/14) Osteoporosis (Acute 04/17/14) T2= -2.9 11/11 Patellofemoral instability of both knees with pain (Acute 03/15/17) Transient visual disturbance, right (Acute 08/15/14) Trigger little finger of left hand (Acute 04/16/15) Body mass index 40.0-44.9, adult (Chronic) Intravenous drug abuse (Acute 04/17/14) Endometriosis (Acute 04/17/14) Depressive disorder (Chronic 04/17/14) Calculus of kidney (Acute 01/06/09) Bulimia (Acute 04/18/14) Anorexia (Acute 04/18/14) Alcohol abuse (Acute 04/17/14) Pericardial effusion (Acute) Fall (Acute) Localized superficial swelling, mass, or lump (Acute) Elevated cholesterol (Chronic) Vaginal bleeding (Acute) Status post hysterectomy with oophorectomy (Acute) History of endometriosis (Acute) Ankle sprain (Acute) Neck pain (Acute) Clavicle pain (Acute) Rash (Acute) Nasal congestion (Acute) Postnasal drip (Acute) Cough (Acute) SOB (shortness of breath) (Acute) Fever (Acute) Left foot pain (Acute) Left ankle pain (Acute) Elevated cholesterol (Chronic) Osteoporosis (Chronic) due to surgical menopause, low ca intake Insomnia (Acute) Equinus contracture of left ankle (Acute) 10/15/20 [facility] Enteropathic arthropathies, left ankle and foot (Acute) 09/23/20 Ferdinand Alvarez DPM - surgical recommendation Elevated LFTs (Acute) Elevated alkaline phosphatase level (Acute) Migraine, unspecified, intractable, without status migrainosus (Acute) Sensorineural hearing loss (SNHL) of both ears (Acute) hearing aids, L>R, left ear, per Audiometry Rpt 09/30/21 ([facility] Order needed, medically cleared for hearing aids .. IK Neurogenic bladder (Acute) Lesion of lateral popliteal nerve, left lower limb (Acute) Per [facility] Injury of cutaneous sensory nerve at ankle and foot level, left leg, initial encounter (Acute) Per [facility] Peripheral nerve entrapment syndrome (Acute) Per [facility] Lesion of deep peroneal nerve (Acute) LEFT FOOT Bronchitis (Acute) COVID (Acute) Positive 04/13/22 05/02/23 Medical History Deafness in left ear Chronic pain of right knee Sleep-related bruxism Obstructive sleep apnea on CPAP 05/21/21f/u sleep clinic Endometriosis GERD (gastroesophageal reflux disease) Retinal detachment, left Hx of renal calculi Hx of drug abuse History of alcohol abuse Congenital stroke Gallstones HSV infection Migraine Hemianopsia left Urinary incontinence Heart burn Hemiparesis left-pt. ambulates with a limp Surgical History S/P nerve repair (~04/15/21) Dr Alvarez,JAY,[place] repair deep peroneal nerve dorsal surface L foot w/Axogen nerve wrap Gastrocnemius equinus of left lower extremity (~10/2020) renal stent left hand tendon surgery Trigger Finger release (05/13/15) L sm finger Dr Gilliam Oophrectomy, Both with hyst Laparotomy (06/11/17) drain placement, biloma Vaginal hysterectomy 2003 for Endometriosis EGD - MAC (04/18/17) Cholecystectomy (06/05/17) Family History Mother Breast cancer COPD (chronic obstructive pulmonary disease) Thyroid disorder Father Heart disease Grandmother Breast cancer Paternal Maternal Aunt Breast cancer paternal Sister Crohn's disease Social History Smoking/Tobacco Use Status: Former Tobacco Use Quit Date: 06/06/07 Smoking risk assessment performed?: Yes Alcohol Intake: former Drug use: Current Sobriety Substance use type: crack/cocaine Details: Sober for 20 years Caregiver/Support person: No Housing: apartment Number of Children: 3 Communication Needs: None Education Level: high school current occupation: Disability Pets and animals: Yes Pets and animals: cat(s) Current gender identity: female What type of physical activity do you participate in: resistance training Frequency: 1-2 times per week Seatbelt use: always Water heater temp set <120 deg: Yes Working smoke detector in home: Yes Fire extinguisher in home: Yes Carbon monox detector in home: Yes Firearms in home: No Do you feel safe at home: Yes Do you feel safe in your relationship?: Yes Female Reproductive History Menstrual Menopause type: surgical History History 3 Para 3 Hx # Term Pregnancies Multiple births Hx # Pregnancies Ectopic pregnancies AB induced Hx Number of Living Children AB spontaneous
[2023-09-12] MEDS: Lidocaine 5% Patch 1 PATCH TP (13:33)
[2023-09-12] MEDS: Ketorolac 15 MG/ML VIAL IM (13:33)
[2023-09-12] MEDS: LORazepam 0.5 MG TAB PO (13:34)
[2023-09-12] MEDS: Acetaminophen 325 MG TAB 650 MG PO (16:29)
[2023-09-12 16:41] VITALS: BP 122/73; PULSE 75; RESP 18; O2SAT 95
== END 2023-09-12 16:41 | disposition home or self-care (01) ==
PROVIDERS: Emergency Provider Emergency Medicine; PCP Nurse Practitioner
DX: S00.83XA Contusion of other part of head, initial encounter (principal); G80.9 Cerebral palsy, unspecified; W10.8XXA Fall (on) (from) other stairs and steps, initial encounter; Y93.01 Activity, walking, marching and hiking
CPT/HCPCS: 73562; 96372; 99284; 70450; 71046; 72125; 73140; J1885

== ENCOUNTER → 2023-09-21 13:55 | Outpatient (CLI) | payer MEDICAID, SELFPAY ==
--- NOTE | 2023-09-21 13:45 | DI.US_ITS ---
Exam(s) US RENAL EXAM: US RENAL CLINICAL HISTORY: monitoring renal calculi, calculus of kidney, N20.0. TECHNIQUE: Talavera scale, color and spectral Doppler were used. COMPARISON: CT CT ABDOMEN PELVIS WO from 04/03/2023 FINDINGS: Renal size in cm: Right: 9.8 left: 9.2 Echogenicity: Normal Hydronephrosis: No Cyst or mass: No Nephrolithiasis: No Bladder: Empty, not evaluated IMPRESSION: Negative renal ultrasound. DATA REPOSITORY:
== END ==
PROVIDERS: PCP Nurse Practitioner; Visit Provider Nurse Practitioner Gerontology
DX: N20.0 Calculus of kidney (principal)
CPT/HCPCS: 76770

== ENCOUNTER → 2023-12-27 01:00 | Outpatient (CLI) | payer MEDICAID, SELFPAY ==
--- OUTSIDE RECORDS SUMMARY | 2023-12-27 01:01 | XMS_ITS | Encounter Summary ---
Author Organization [facility] Address [address] [place] [address] Care Team Providers Care Pharmaceutical Plant Operator Name Role Phone Glenn Castanon MD Primary Care Provider [phone] Encounter Details Date Type Department Care Team ([facility] st Contact Info) Description 02/12/2022 Lab Requisition [facility] Pathology & Laboratory Medicine - [address] [id number] Outr Resulting Lab, Provider Social History Tobacco Use Types Packs/Day Years Used Date Smoking Tobacco: Never Assessed Interpersonal Safety Answer Date Record ed Physically Hurt Never 01/06/2020 Verbally Threaten Not on file 01/06/2020 Sex and Gender Information Value Date Recorded Sex Assigned at Not on file Gender Identity Not on file Sexual Orientation Not on file documented as of this encounter Plan of Treatment Not on file documented as of this encounter Procedures Procedure Name Priority Date/Time Associated Diagnosis Comments HEPATITIS C AB W REFLEX TO HCV RNA BY PCR Routine 02/12/2022 8:57 EDT documented in this encounter Results * HEPATITIS C AB W REFLEX TO HCV RNA BY PCR (02/12/2022 8:57 EDT) Hep C Antibody Negative Negative 02/15/2022 9:56 EDT [facility] Blood VENOUS BLOOD / Unknown 02/12/2022 8:57 EDT 02/12/2022 19:11 EDT Provider Outr Resulting Lab CHEMISTRY & BLOOD GAS ORDERABLES [facility] [address] [place] [address] documented in this encounter Visit Diagnoses Not on filedocumented in this encounter Care Teams Pharmaceutical Plant Operator Relationship Specialty Start Date End Date Glenn Castanon MD PCP - General 04/15/15 documented as of this encounter
--- OUTSIDE RECORDS SUMMARY | 2023-12-27 01:01 | XMS_ITS | Encounter Summary ---
Author Organization [facility] Address [address] [place] [address] Care Team Providers Care Freight Trucker Name Role Phone lGenn Castanon MD Primary Care Provider [phone] Encounter Details Date Type Department Care Team ([facility] st Contact Info) Description 02/12/2022 Lab Requisition [facility] Pathology & Laboratory Medicine - [address] [id number] Outr Resulting Lab, Provider Social History Tobacco [...] Procedure Name Priority Date/Time Associated Diagnosis Comments HIV 1/2 ANTIGEN AND ANTIBODY, 4TH GENERATION Routine 02/12/2022 8:57 EDT documented in this encounter Results * HIV 1/2 ANTIGEN AND ANTIBODY, 4TH GENERATION (02/12/2022 8:57 EDT) HIV 1 and 2 Antibody/p24 Antigen, 4th Generation Negative Negative 02/14/2022 14:01 EDT [facility] Comment:If acute HIV-1 infec tion is suspected in a high risk patient, submit plasma specimen for HIV-1 RNA quantitation test. Blood VENOUS BLOOD / Unknown 02/12/2022 8:57 EDT 02/12/2022 19:11 EDT Narrative [facility] - 02/14/2022 14:01 EDT Fourth Generation assay performed on the Siemens Measyaur XPT. Provider Outr Resulting Lab IMMUNOLOGY A ND SEROLOGY ORDERABLES Performing Organization Address City/State/[facility] Co de Phone Number [facility] [address] [place] [address] documented in this encounter Visit Diagnoses Not on filedocumented in this encounter Care Teams Freight Trucker Relationship Specialty Start Date End Date Glenn Castanon MD PCP - General 04/15/15 documented as of this encounter
--- OUTSIDE RECORDS SUMMARY | 2023-12-27 01:01 | XMS_ITS | Clinical Summary ---
Author Organization [facility] Address [address] [place] [id number] Care Team Providers Care Lens Molding Equipment Operator Name Role Phone Glenn Castanon MD Primary Care Provider [phone] Social History Tobacco Use Types Packs/Day Years Used Date Smoking Tobacco: Never Assessed Interpersonal Safety Answer Date Record ed Physically Hurt Never 01/06/2020 Verbally Threaten Not on file 01/06/2020 Sex and Gender Information Value Date Recorded Sex Assigned at Not on file Gender Identity Not on file Sexual Orientation Not on file Plan of Treatment Health Maintenance Due Date Last Done Comments Hepatitis B Vaccine (1 of 3 - 19+ 3-dose series) 03/20 COVID-19 Vaccine ( season) 2023 Hepatitis C Screen Completed 02/12/2022 Procedures Procedure Name Priority Date/Time Associated Diagnosis Comments HEPATITIS C AB W REFLEX TO HCV RNA BY PCR Routine 02/12/2022 8:57 EDT from Last 3 Months or Most Recently Relevant to Health Maintenance Results * HEPATITIS C AB W REFLEX TO HCV RNA BY PCR (02/12/2022 8:57 EDT) Hep C Antibody Negative Negative 02/15/2022 9:56 EDT [facility] Blood VENOUS BLOOD / Unknown 02/12/2022 8:57 EDT 02/12/2022 19:11 EDT Provider Outr Resulting Lab CHEMISTRY & BLOOD GAS ORDERABLES [facility] [address] [place] [address] from Last 3 Months or Most Recently Relevant to Health Maintenance Care Teams Lens Molding Equipment Operator Relationship Specialty Start Date End Date Glenn Castanon MD PCP - General 04/15/15
--- OUTSIDE RECORDS SUMMARY | 2023-12-27 01:01 | XMS_ITS | Referral Summary ---
Author Organization [facility] Address [address] [place] [address] Care Team Providers Care Oil Well Gun Perforator Operator Name Role Phone Glenn Castanon MD Primary Care Provider [phone] Social History Tobacco Use Types Packs/Day Years Used Date Smoking Tobacco: Never Assessed Interpersonal Safety Answer Date Record ed Physically Hurt Never 01/06/2020 Verbally Threaten Not on file 01/06/2020 Sex and Gender Information Value Date Recorded Sex Assigned at Not on file Gender Identity Not on file Sexual Orientation Not on file Plan of Treatment Not on file Procedures Procedure Name Priority Date/Time Associated Diagnosis Comments HEPATITIS C AB W REFLEX TO HCV RNA BY PCR Routine 02/12/2022 8:57 EDT from Last 3 Months or Most Recently Relevant to Health Maintenance Results * HEPATITIS C AB W REFLEX TO HCV RNA BY PCR (02/12/2022 8:57 EDT) Hep C Antibody Negative Negative 02/15/2022 9:56 EDT [facility] Blood VENOUS BLOOD / Unknown 02/12/2022 8:57 EDT 02/12/2022 19:11 EDT Provider Outr Resulting Lab CHEMISTRY & BLOOD GAS ORDERABLES [facility] [address] [place] [address] from Last 3 Months or Most Recently Relevant to Health Maintenance Care Teams Oil Well Gun Perforator Operator Relationship Specialty Start Date End Date Glenn Castanon MD PCP - General 04/15/15
--- OUTSIDE RECORDS SUMMARY | 2023-12-27 01:01 | XMS_ITS | Encounter Summary ---
Author Organization [facility] Address [address] [place] [address] Care Team Providers Care Bowling Alley Refinisher Name Role Phone Glenn Castanon MD Primary Care Provider [phone] Encounter Details Date Type Department Care Team (Late st Contact Info) Description 08/19/2022 Lab Requisition [facility] Pathology & Laboratory Medicine - [facility] [address] [place] [address] Tab Cervantes MD [address] [place] [phone] Encounter for other general examination Social History Tobacco Use Types Packs/Day Years [...] Procedure Name Priority Date/Time Associated Diagnosis Comments SURGICAL PATHOLOGY Today 08/19/2022 9: 20 EDT Encounter for other general examination documented in this encounter Results * SURGICAL PATHOLOGY (08/19/2022 9:20 EDT) Note to Patient The following pathology results have been interpreted by your pathologist and may be available to you before your health provider has had the opportunity to review them. Please allow time for your provider to receive these results and explore management options, if applicable. 08/23/2022 11:57 EDT [facility] Final Diagnosis A. STOMACH, ANTRUM, BIOPSY: - Antral-type mucosa with chemical (reactive) gastropathy. B. STOMACH, BODY, BIOPSY: - Oxyntic-type mucosa with no significant diagnostic abnormality. C. STOMACH, POLYP, BIOPSY: - Fundic gland polyp. D. ESOPHAGUS, DISTAL, BIOPSY: - Reactive squamous mucosa with features of reflux. E. ESOPHAGUS, CERVICAL, BIOPSY: - Reactive squamous mucosa. 08/23/2022 11:57 [facility] Attestation By the signature below, the attending physician certifies that they have 1) personally conducted a gross and/or microscopic examination of the described specimen(s), and/or personally interpreted the results of laboratory testing of the described specimen(s), and 2) personally rendered or confirmed the above diagnosis. 08/23/2022 11:57 [facility] at 1157 Clinical History Bile reflux 08/23/2022 11:57 [facility] Gross Description A. Received in formalin labelled with proper patient identification (initials D, A) and antrum are two alcantara tissues, 0.2 x 0.2 x 0.1 cm and 0.3 x 0.2 x 0.1 cm. Entirely submitted in A1. B. Received in formalin labelled with proper patient identification (initials D, A) and stomach body is a alcantara irregular tissue, 0.7 x 0.3 x 0.1 cm. Entirely submitted in B1. C. Received in formalin labelled with proper patient identification (initials D, A) and gastric polyp is a alcantara irregular tissue, 0.3 x 0.2 x 0.2 cm. Entirely submitted in C1. D. Received in formalin labelled with proper patient identification (initials D, A) and distal esophagus are two pale talavera brown membranous tissues, 0.3 x 0.2 x 0.1 cm and 0.5 x 0.3 x 0.1 cm. Entirely submitted in D1. E. Received in formalin labelled with proper patient identification (initials D, A) and cervical esophagus is a pale talavera membranous tissue, 0.3 x 0.2 x 0.1 cm. Entirely submitted in E1. NAYE ARAGON([facility]) 08/20/2022 7:51 08/23/2022 11:57 EDT [facility] Performing Lab [facility] 08/23/2022 11:57 EDT [facility] Scanned Images 08/23/2022 11:57 EDT [facility] Tissue ENTIRE ESOPHAGUS / Unknown 08/19/2022 9:20 EDT 08/19/2022 17:19 EDT Tissue specimen (specimen) STOMACH STRUCTURE / Unknown 08/19/2022 9:20 EDT 08/19/2022 17:19 EDT Tissue specimen (specimen) SPECIMEN FROM STOMACH OBTAINED BY TOTAL GASTRECTOMY / Unknown 08/19/2022 9:20 EDT 08/19/2022 17:19 EDT Tissue specimen (specimen) ESOPHAGEAL STRUCTURE / Unknown 08/19/2022 9:20 EDT 08/19/2022 17:19 EDT Tissue specimen (specimen) ESOPHAGEAL STRUCTURE / Unknown 08/19/2022 9:20 EDT 08/19/2022 17:19 EDT Tab Cervantes MD PATHOLOGY ORDERABLES Performing Organization Address City/State/[facility] Co de Phone Number [facility] [address] [place] [address] documented in this encounter Visit Diagnoses Diagnosis Encounter for other general examination documented in this encounter Care Teams Bowling Alley Refinisher Relationship Specialty Start Date End Date Glenn Castanon MD PCP - General 04/15/15 documented as of this encounter
--- OUTSIDE RECORDS SUMMARY | 2023-12-27 01:01 | XMS_ITS | Encounter Summary ---
Author Organization [facility] Address [address] [place] [address] Care Team Providers Care Packaging Materials Inspector Name Role Phone Glenn Castanon MD Primary Care Provider [phone] Encounter Details Date Type Department Care Team ([facility] st Contact Info) Description 04/02/2021 Lab Requisition [facility] Pathology & Laboratory Medicine - [address] [id number] Outr Resulting Lab, Provider Social History Tobacco [...] Procedure Name Priority Date/Time Associated Diagnosis Comments PTH INTACT Routine 04/02/2021 13:00 EDT documented in this encounter Results * PTH INTACT (04/02/2021 13:00 EDT) Intact PTH 88 19 - 88 pg/mL 04/03/2021 9:23 EDT [facility] Blood VENOUS BLOOD / Unknown 04/02/2021 13:00 EDT 04/02/2021 21:03 EDT Provider Outr Resulting Lab CHEMISTRY & BLOOD GAS ORDERABLES [facility] [address] [place] [address] documented in this encounter Visit Diagnoses Not on filedocumented in this encounter Care Teams Packaging Materials Inspector Relationship Specialty Start Date End Date Glenn Castanon MD PCP - General 04/15/15 documented as of this encounter
--- OUTSIDE RECORDS SUMMARY | 2023-12-27 01:01 | XMS_ITS | Encounter Summary ---
Author Organization [facility] Address [address] [place] [address] Care Team Providers Care Head School Custodian Name Role Phone Glenn Castanon MD Primary Care Provider [phone] Encounter Details Date Type Department Care Team ([facility] st Contact Info) Description 08/18/2020 Lab Requisition [facility] Pathology & Laboratory Medicine - [address] [id number] Outr Resulting Lab, Provider Social History Tobacco [...] Procedure Name Priority Date/Time Associated Diagnosis Comments RHEUMATOID FACTOR Routine 08/18/2020 12: 10 EDT ANTI NUCLEAR AB (LENCHO), IFA Routine 08/18/2020 12:10 EDT documented in this encounter Results * RHEUMATOID FACTOR (08/18/2020 12:10 EDT) Rheumatoid Factor <8.6 <12.0 IU/mL 08/18/2020 16:57 EDT [facility] Blood VENOUS BLOOD / Unknown 08/18/2020 12:10 EDT 08/18/2020 16:34 EDT Provider Outr Resulting Lab CHEMISTRY & BLOOD GAS ORDERABLES Performing Organization Address [facility] Co de Phone Number [facility] [address] [place] [address] * ANTI NUCLEAR AB (LENCHO), IFA (08/18/2020 12:10 EDT) LENCHO Interpretation Negative Negative 2020 13:56 EDT [facility] Comment:No titer performed, LENCHO Screen is negative. Blood VENOUS BLOOD / Unknown 08/18/2020 12:10 EDT 08/18/2020 16:34 EDT Narrative [facility] - 08/19/2020 13:56 EDT Results were obtained with the [employer] NOVA Lite HEp-2 LENCHO Kit by indirect immunofluorescence. Provider Outr Resulting Lab IMMUNOLOGY A ND SEROLOGY ORDERABLES Performing Organization Address [facility] Co de Phone Number [facility] [address] [place] [address] documented in this encounter Visit Diagnoses Not on filedocumented in this encounter Care Teams Head School Custodian Relationship Specialty Start Date End Date Glenn Castanon MD PCP - General 04/15/15 documented as of this encounter
--- OUTSIDE RECORDS SUMMARY | 2023-12-27 01:01 | XMS_ITS | Encounter Summary ---
Author Organization [facility] Address [address] [place] [address] Care Team Providers Care Pipe Caulker Name Role Phone Glenn Castanon MD Primary Care Provider Encounter Details Date Type Department Care Team ([facility] st Contact Info) Description 04/05/2021 Lab Requisition [facility] Pathology & Laboratory Medicine - [address] [address] Outr Resulting Lab, Provider Social History Tobacco [...] Procedure Name Priority Date/Time Associated Diagnosis Comments CALCIUM, URINE 24HR Routine 04/04/2021 6:00 EDT documented in this encounter Results * CALCIUM, URINE 24HR (04/04/2021 6:00 EDT) Calcium, Urine 6.8 See Note mg/dL 04/06/2021 9:29 EDT [facility] Comment: NOTE: Reference range not established Calcium, Urine 24 hr 150 100 - 300 mg/24hrs 04/06/2021 9:29 EDT [facility] Comment:Reference range assu mes a normal daily intake of calcium between 600 - 800 mg/day. Urine Volume 2,200 mL 04/06/2021 9:29 EDT [facility] Urine Collection Period 24.0 Hours 04/06/2021 9:29 EDT [facility] Urine 24 HOUR URINE SPECIMEN / Unknown 04/04/2021 6:00 EDT 04/05/2021 15:52 EDT Provider Outr Resulting Lab URINALYSIS O RDERABLES Performing Organization Address City/State/[facility] Co de Phone Number [facility] [address] [place] [address] documented in this encounter Visit Diagnoses Not on filedocumented in this encounter Care Teams Pipe Caulker Relationship Specialty Start Date End Date Glenn Castanon MD PCP - General 04/15/15 documented as of this encounter
--- OUTSIDE RECORDS SUMMARY | 2023-12-27 01:02 | XMS_ITS | Encounter Summary ---
Author Organization [facility] Address [facility] [place] [address] Care Team Providers Care Color Making Supervisor Name Role Phone Laura Hidalgo APRN Primary Care Provider [phone] Encounter Details Date Type Department Care Team (Late st Contact Info) Description 05/06/2022 3:00 PM EST [place] [phone] Julio Welsh MD [facility] [address] Intractable migraine without status migrainosus, unspecified migraine type; Chronic pain of right knee Social History Tobacco Use Types Packs/Day Years Used Date Smoking Tobacco: Former Cigarettes Q uit: 04/13/2007 Smokeless Tobacco: Never Alcohol Use Standard Drinks/Week Comments No 0 (1 standard drink = 0.6 oz pur e alcohol) Overall Financial Resource Strain (CARDIA) Answe r Date Recorded How hard is it for you to pa y for the very basics like food, housing, medical care, and heating? Not hard at all 12/28/2021 Exercise Vital Sign Answer Date Recorde d On average, how many days pe r week do you engage in moderate to strenuous exercise (like a brisk walk)? 2 days 12/28/2021 On average, how many minutes do you engage in exercise at this level? 20 min 12/28/2021 Hunger Vital Sign Answer Date Recorded Within the past 12 months, y ou worried that your food would run out before you got the money to buy more. Never true 12/29/19 22 Within the past 12 months, t he food you bought just didn't last and you didn't have money to get more. Never true 12/28/2021 PRAPARE - Transportation Answer Date Re corded In the past 12 months, has l ack of transportation kept you from medical appointments or from getting medications? No 12/05 In the past 12 months, has l ack of transportation kept you from meetings, work, or from getting things needed for daily living? No 12/28/2021 Housing Stability Vital Sign Answer João e Recorded In the last 12 months, was t here a time when you were not able to pay the mortgage or rent on time? No 12/28/2021 In the last 12 months, how many places have you lived? 1 12/28/2021 In the last 12 months, was t here a time when you did not have a steady place to sleep or slept in a prison (including now)? No 12/28/2021 Sex and Gender Information Value Date Recorded Sex Assigned at Female 12/11/2020 8:51 PM EDT Gender Identity Female 05/18/2021 7:21 PM EST Sexual Orientation Straight 05/18/2021 7: 21 PM EST documented as of this encounter Last Filed Vital Signs Vital Sign Reading Time Taken Comments Blood Pressure 132/63 05/06/2022 2:33 PM EST Pulse 69 05/06/2022 2:33 PM EST Temperature - - Respiratory Rate - - Oxygen Saturation - - Inhaled Oxygen Concentration - - Weight 102.4 kg (225 lb 12.8 oz) 05/06/2022 2:33 PM EST Height 147.3 cm (4' 10) 05/06/2022 2:33 PM EST Body Mass Index 47.19 05/06/2022 2:33 PM EST documented in this encounter Patient Instructions * Patient Instructions* Julio Welsh MD - 05/06/2022 3:00 PM EST I think you are doing about the same overall. Migraine prevention seems to have improvd somewhat on the present combination of medicines. I thinkyou can continue this safely. When you get a headache you can continue to use rizatriptan as you are doing now. I appreciate the problems you are having with your bladder, and I would like you to try some Ditropan (oxybutynin) 1 pill twice a day. This may help with symptoms of urgency but could give you a dry mouth. I would like to see you back in 6 months or sooner if necessary Julio Welsh MD Professor of neurology, [facility] Department of Neurology, [address] Pager: [phone], #[phone] Email: [email or web address] documented in this encounter Progress Notes * Julio Welsh MD - 05/06/2022 3:00 PM EST Neurology clinic note Chief Complaint: Headaches, stroke, and hemiparesis. 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 MRI scans have shown a stable right parietal lesion. She feels no worsening of her congenital weakness. She also suffers from chronic and intermittent migraine which produces intermittent visual disturbances. The pain is severe posteriorly with some radiation to the vertex, worse on the right. She is sometimes nauseated. On her present regimen she is doing fairly well. She is rarely needing Imitrex. She also uses naproxen and hydroxyzine. She continues to have musculoskeletal symptoms of joint pains in various parts of her body. She hasbeen seen in orthopedics and rheumatology. She is being treated with vitamin D and topical Voltaren. In 2017 she had an emergency cholecystectomy. This was complicated by what sounds like a bile leak.She required a temporary drain. All this seems resolved. She still has some abdominal pain. As of 2018 the patient is doing reasonably well. She is getting some migrainous headaches and paresthesias similar to what she has had before. Prophylaxis with Elavil and Topamax and symptomatic treatment with naproxen has worked reasonably well. The exact frequency of headaches is unclear, she needs acute treatment every few days to weeks. She recently had an episode of acute vertigo for which she was hospitalized for a few days. This was thought to be probably a migraine equivalent. I spoke with her neurologist in [place] Dr. Thomson whom I know well. CT scan of the head was unremarkable. Those symptoms are not resolved and have not recurred. In 2018 she continued to do well. she was having rare migrainous headaches. She has not had any major visual disturbances or vertigo. She continued to have leg pain. She was using a brace on the left. Apparently Medicaid would not pay for a brace for her right knee, but it was not certain that it was necessary. In 2019 the patient was unable to come have a clinic visit because of the virus epidemic. I spoke with her on the phone. She is doing quite well. She goes for walks with her boyfriend. She still lives at home with her son. She remains on disability. Headaches are doing reasonably well. She gets badmonth every few weeks to months. She has had no visual disturbances. She continues to have a variety of musculoskeletal symptoms. As of 2020 the patient was doing about the same. She gets bad headaches every few weeks. These are responding quite well to Maxalt although it does make her tired as the headache resolves. She recently had surgery for a heel tendon lengthening operation on paretic left side. She will be getting a new brace for the left leg. She is complaining more of symptoms of neurogenic bladder. Ultrasound of kidneys and bladder was unremarkable. She had a bone scan recently that showed osteoporosis. Interval history: As of 2021 she is about the same Headaches were somewhat worse. She was requiring treatment with rizatriptan once a week. We added magnesium and riboflavin to her regimen and she is doing substantially better. She has gone for several weeks without needing rizatriptan. She still has urinary urgency, and feels she would like treatment She had surgery on her ankle and foot for heel cord lengthening and nerve entrapment. She is still having pain but feels she has better mobility. She is going to be treated for osteoporosis. She wanted to enroll in a weight loss program, but the program here did not establish a connection with. Past medical history: Patient Active Problem List Diagnosis ??? Enteropathic arthropathies, left ankle and foot ??? History of endometriosis ??? Elevated cholesterol ??? Pericardial effusion ??? Postnasal drip ??? Vaginal bleeding ??? Migraine worsening noted in ??? Herpes infection of left eye, now with retinopathy ??? Equinus contracture of ankle ??? Gallstone ??? Gastroesophageal reflux disease ??? Obstructive sleep apnea syndrome ??? Cerebral palsy ??? Chronic pain of both knees ??? 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 Hearing loss, neural, unilateral ??? 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 Ortiz) ??? H/O cocaine abuse ??? Trigger little finger of left hand ??? S/P hysterectomy ??? Osteoporosis ??? Endometriosis ??? Acute retinal necrosis of left eye ??? Transient visual disturbance, right ??? Afferent pupillary defect, left eye ??? Calculus of kidney Review of systems: She is eating all right, Sleep is fair, occasionally disturbed by migraines. Bowel and bladder function is stable. She is having more diarrhea since her cholecystectomy Social History: Living at home with son. On disability Physical Exam: BP 132/63 Pulse 69 Ht 147.3 cm (4' 10) Wt 102.4 kg (225 lb 12.8 oz) BMI 47.19 kg/m?? Head, eyes, ears, nose and throat were normal. there was no significant tenderness. The tympanic membranes were clear at earlier visits. Heart and lungs were normal. 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 There is some rather nonspecific tenderness around the right knee She is mentally at baseline. Speech is normal. There is no sign of infection in either eye. She has complete loss of vision on the left and external deviation of the left eye. There is a stable left-sided visual field constriction in the right eye. Previously the optic disc was flat. Visual acuity was 20/40 with the 14 inch card and her glasses. Tuning fork tests suggested a moderate degree of sensorineural hearing loss bilaterally, worse on the left. She has more nystagmus in both eyes looking to the left. All this is stable. She has a mild left hemiparesis, it is unchanged. Tone is slightly increased on the left. Strength is variable on the right with some give way weakness. Reflexes are brisk but difficult to elicit on the paretic left side because of hypertonicity. She has minor sensory deficits on the left and right sides, that are somewhat inconsistent. Overallsensation is decreased on the paretic left side she has some tenderness around the left knee and less so around the left ankle. There was no clear sign of instability. Cerebellar function testing revealed substantially normal finger to nose movement. Coordination is mildly impaired on the paretic side She walks with a mildly spastic and ataxic gait with circumduction of the left leg. She has an AFO splint on the left that she uses intermittently. She has it on today, and seems to be walking better. Medications: Current Outpatient Medications Medication Sig Dispense Refill ??? meloxicam (MOBIC) 7.5 mg Tablet TAKE ONE TABLET BY MOUTH EVERY DAY 90 tablet 1 ??? magnesium oxide (Mag-Ox) 400 mg (241.3 mg magnesium) Tablet Take 1 tablet by mouth daily. 30 tablet 11 ??? riboflavin, Vitamin B2, (Vitamin B2) 100 mg Tablet Take 2 tablets by mouth 2 times daily. 120 tablet 11 ??? amitriptyline (Elavil) 25 mg Tablet Take 1 tablet by mouth nightly. 30 tablet 11 ??? topiramate (Topamax) 25 mg Tablet TAKE 1 TABLET BY MOUTH TWICE DAILY 180 tablet 1 ??? baclofen (Lioresal) 10 mg Tablet TAKE 1 TABLET BY MOUTH THREE TIMES DAILY 270 tablet 1 ??? omeprazole (PriLOSEC) 40 mg Capsule, Delayed Release(E.C.) Take 1 capsule by mouth daily. 90 capsule 3 ??? rizatriptan (MAXALT) 10 mg Tablet Take 1 pill twice a day as needed. 10 pills is a 1 month supply. 10 tablet 5 ??? estradioL (ESTRACE) 0.01 % (0.1 mg/gram) Cream ??? melatonin 10 mg Tablet, Sublingual melatonin 10 mg sublingual tablet ??? fluticasone propionate (FLONASE) 50 mcg/actuation [place], Suspension SHAKE LIQUID AND USE 2 SPRAYS IN EACH NOSTRIL DAILY ??? atorvastatin (Lipitor) 20 mg Tablet TAKE 1 TABLET BY MOUTH AT BEDTIME. ??? albuterol (PROAIR HFA) 90 mcg/actuation HFA Aerosol Inhaler INHALE 2 PUFFS INTO THE LUNGS DAILYAS NEEDED FOR WHEEZING, USE WITH SPACER. 8.5 g 5 ??? raloxifene (EVISTA) 60 mg tablet Take 60 mg by mouth daily. ??? valACYclovir (VALTREX) 500 mg tablet Take 500 mg by mouth daily. ??? oxybutynin (Ditropan) 5 mg Tablet Take 1 tablet by mouth 2 times daily. 60 tablet 5 No current facility-administered medications for this visit. Laboratory studies: Orders Placed This Encounter Procedures ??? US Retroperitoneal Complete: Pending ??? Urinalysis with reflex Culture: Unremarkable in August 2020 MRI brain: Congenital stroke on the right. Impression: The patient continues to have multiple neurological issues, 1. As noted earlier, she had a stroke at the time of with no evidence of recurrence. Her MRI scan is stable. 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 2. She suffers from migraine, her symptoms of visual disturbance and vertigo may well have been a migraine equivalent. There was also evidence of polypharmacy and she seems better after reducing the doses of Topamax and baclofen. She is on meloxicam chronically for her other aches and pains. I am prescribing Maxalt 10 mg twice daily as needed for when she gets a bad headache. This works adequately but she is needing it fairly frequently and I think we need to step up prevention with something that does not cause side effects. I recommended that she start magnesium oxide 400 mg daily and riboflavin 200 mg twice daily. 3. Her vision problems appear to have stabilized. She has complete loss of vision on the left following the herpetic infection, but it seems substantially normal on the right. There is a subtle visual field deficit associated with a hemiparesis. Some of her problem was I believe a part of her migraine. Any big change in her vision is reason to go the emergency room, owing to the history of herpetic infection. She needs to remain on Valtrex. 4. She has sensorineural hearing loss bilaterally, and it is worse in the left ear. She is doing better with the hearing aid. Asymmetric hearing loss probably contributes to migrainous vertigo 5. Because of her hemiparesis and obesity, she has musculoskeletal pain that switches a lot betweendifferent joints. She should continue with walks in a home exercise program. She recently had left heel cord lengthening surgery. I note that she suffers from osteoporosis. I will defer in this regard to her PCP. 6. She has neurogenic bladder related to history of cerebral palsy. Urinalysis was unremarkable andultrasound of kidneys and bladder was also unremarkable. She would like treatment because she is going through a lot of depends. I advised that she start a trial of Ditropan 5 mg twice daily. I have asked her to call in a few weeks to report results. 7. I do not know what to do about her weight. She has gained a lot of over the years. I am sure it contributes to her health. Bariatric program here did not establish a connection with her. I would have to defer to her PCP. Thank you for this consultation. I will see her back in 6 months or sooner if necessary. I have asked her to call in a few weeks Julio Welsh MD Department of Neurology [place] [phone] Pager: [phone], #[phone] Email: [email or web address] CC: Laura Hidalgo APRN documented in this encounter Plan of Treatment Not on file documented as of this encounter Visit Diagnoses Diagnosis Intractable migraine without status migrainosus, unspecified migraine type Chronic pain of right knee documented in this encounter Care Teams Color Making Supervisor Relationship Specialty Start Date End Date Laura Hidalgo APRN [address] [place] [address] PCP - General Internal Medicine 08/16/16 documented as of this encounter
--- OUTSIDE RECORDS SUMMARY | 2023-12-27 01:02 | XMS_ITS | Encounter Summary ---
Author Organization [facility] Address [facility] [place] [address] Care Team Providers Care Adolescent Coordinator Name Role Phone Laura Hidalgo APRN Primary Care Provider [phone] Encounter Details Date Type Department Care Team (Latest Contact Info) Description 12/16/2022 Travel Social History Tobacco Use Types Packs/Day Years [...] food, housing, medical care, and heating? Not very hard 11/08/2022 Exercise Vital Sign Answer Date Recorde d On average, how many days pe r week do you engage in moderate to strenuous exercise (like a brisk walk)? 3 days 11/08/2022 On average, how many minutes do you engage in exercise at this level? 30 min 11/08/2022 Hunger Vital Sign Answer Date Recorded Within the past 12 months, y ou worried that your food would run out before you got the money to buy more. Never true 11/09/19 23 Within the past 12 months, t he food you bought just didn't last and you didn't have money to get more. Never true 11/08/2022 PRAPARE - Transportation Answer Date Re corded In the past 12 months, has l ack of transportation kept you from medical appointments or from getting medications? No 10/2022 In the past 12 months, has l ack of transportation kept you from meetings, work, or from getting things needed for daily living? No 11/08/2022 Housing Stability Vital Sign Answer João e Recorded In the last 12 months, was t here a time when you were not able to pay the mortgage or rent on time? No 11/08/2022 In the last 12 months, how many places have you lived? 1 11/08/2022 In the last 12 months, was t here a time when you did not have a steady place to sleep or slept in a fdc (including now)? No 11/08/2022 Education Answer Date Recorded What is the highest level of school you have completed or the highest degree you have received? High school graduate 11/08/2022 Sex and Gender Information Value Date Recorded Sex Assigned at Female 12/11/2020 8:51 PM EDT Gender Identity Female 05/18/2021 7:21 PM EST Sexual Orientation Straight 05/18/2021 7: 21 PM EST documented as of this encounter Plan of Treatment Not on file documented as of this encounter Visit Diagnoses Not on filedocumented in this encounter Care Teams Adolescent Coordinator Relationship Specialty Start Date End Date Laura Hidalgo APRN [address] [place] [address] PCP - General Internal Medicine 08/16/16 documented as of this encounter
--- OUTSIDE RECORDS SUMMARY | 2023-12-27 01:02 | XMS_ITS | Encounter Summary ---
Author Organization [facility] Address [facility] [place] [address] Care Team Providers Care Flour Blender Name Role Phone Laura Hidalgo APRN Primary Care Provider [phone] Encounter Details Date Type Department Care Team (Latest Contact Info) Description 11/08/2022 Travel Social History Tobacco Use Types Packs/Day [...] on filedocumented in this encounter Care Teams Flour Blender Relationship Specialty Start Date End Date Laura Hidalgo APRN [address] [place] [address] PCP - General Internal Medicine 08/16/16 documented as of this encounter
--- OUTSIDE RECORDS SUMMARY | 2023-12-27 01:02 | XMS_ITS | Encounter Summary ---
Author Organization [facility] Address [address] [place] [address] Care Team Providers Care Bicycle Assembler Name Role Phone Unavailable Primary Care Provider Unavailabl e Encounter Details Date Type Department Care Team (Late st Contact Info) Description 05/24/2003 Results Only [facility] [address] [place] [address] Olena Grossman, [facility] [address] [place] [address] Social History Tobacco Use Types Packs/Day Years Used Date Smoking Tobacco: Never Assessed Sex and Gender Information Value Date Recorded Sex Assigned at Not on file Gender Identity Not on file Sexual Orientation Not on file documented as of this encounter Plan of Treatment Not on file documented as of this encounter Procedures Procedure Name Priority Date/Time Associated Diagnosis Comments CYTOPATHOLOGY Routine 05/24/2003 0:00 EST documented in this encounter Results * CYTOPATHOLOGY (05/24/2003 0:00 EST) Pathology Report: CYTOPATHOLOGY REPORT Reports generated via electronic interface contain original data; however they are lacking the format of the original report. Caution should be taken when reading/interpreti ng unformatted reports. Name: ? PETER SANTIAGO ? Accession #: ? [id number] : ? 1975 (Age: 28) ??F ?Collect Date: ? 05/24/2003 Location: ? [facility] ? Receive Date: ? 05/28/2003 Provider: ?OLENA GROSSMAN OUTCOMES SPECIALIST Copy to: ? Specimen/Source: ?ThinPrep Pap Test, Cervix/Endocervix Last Menstrual Period: ? 05/17/03 Previous Gynecologic Pathology: ? Yes: previous pap unsatisfactory for evaluation 04/30/03 ? SPECIMEN ADEQUACY ? Satisfactory for Evaluation - transformation zone component present - scant squamous epithelial component GENERAL CATEGORIZATION ? Negative for Intraepithelial Lesion or Malignancy ? Document reviewed and electronically signed by: ? Anisha Gabriel, SCT(ASCP) ? Report Date: ??06/03/2003 12:16 End of Report [facility] 05/24/2003 05/28/2003 Olena Grossman OUTCOMES SPECIALIST PATHOLOGY ORDERABLES [facility] [address] [place] [address] documented in this encounter Visit Diagnoses Not on filedocumented in this encounter
--- OUTSIDE RECORDS SUMMARY | 2023-12-27 01:02 | XMS_ITS | Encounter Summary ---
Author Organization [facility] Address [address] [place] [address] Care Team Providers Care Carpenter Repairer Name Role Phone Glenn Castanon MD Primary Care Provider [phone] Encounter Details Date Type Department Care Team (Late st Contact Info) Description 06/05/2017 Results Only [facility] [phone] Berlin Madrid, DO [address] [place] [address] Social History Tobacco Use Types Packs/Day Years Used Date Smoking Tobacco: Never Assessed Sex and Gender Information Value Date Recorded Sex Assigned at Not on file Gender Identity Not on file Sexual Orientation Not on file documented as of this encounter Plan of Treatment Not on file documented as of this encounter Procedures Procedure Name Priority Date/Time Associated Diagnosis Comments SURGICAL PATHOLOGY Routine 06/05/2017 8:33 EST documented in this encounter Results * SURGICAL PATHOLOGY (06/05/2017 8:33 EST) Pathology Report: SURGICAL PATHOLOGY REPORT Reports generated via electronic interface contain original data; however they are lacking the format of the original report. Caution should be taken when reading/interpret ing unformatted reports. Name: ? PETER SANTIAGO ? Accession #: ? [id number] ? : ? 1975 (Age: 42) ??F ? Collect Date: ? 06/05/2017 ? Location: ? [facility] ? Receive Date: ? 06/07/2017 ? Provider: BERLIN MADRID DO Copy to: CAROLYN MAC SPINDLE SETTER ? Final Pathologic Diagnosis: GALLBLADDER, CHOLECYSTECTOMY: - Chronic cholecystitis with cholelithiasis. Document reviewed and electronically signed by: JOVANI REA MD Report ??Date: 06/13/2017 17:32 By the signature above, the attending physician certifies that he/she has personally conducted a gross and/or microscopic examination of the described specimens and rendered or confirmed the above diagnosis. Specimen(s) Received: Gallbladder Clinical History: R upper quad abdominal pain Gross Description: ? Received in formalin labelled with proper patient identification (initials D, A) and gallbladder is a previously disrupted gallbladder (7.0 x 2.0 x 1.8 cm) with an attached segment of cystic duct (0.1 cm in length x 0.3 cm in diameter). ? The serosa is talavera-purple. The mucosa is alcantara-brown with yellow stippling and the wall is 0.2 cm in thickness. The cystic duct lumen is patent. The cystic duct margin is inked blue. Multiple alcantara-brown granular firm choleliths are present measuring 3.0 x 2.0 x 1.0 cm in aggregate. ? Two product support representative sections and the inked en face cystic duct margin are submitted in 1. Dr. Butler 06/08/2017 4:51 PM End of Report [facility] 06/05/2017 8:33 EST 06/07/2017 8:33 EST Berlin Madrid DO PATHOLOGY ORDERABLES [facility] [address] [place] [address] documented in this encounter Visit Diagnoses Not on filedocumented in this encounter Care Teams Carpenter Repairer Relationship Specialty Start Date End Date Glenn Castanon MD PCP - General 04/15/15 documented as of this encounter
--- OUTSIDE RECORDS SUMMARY | 2023-12-27 01:02 | XMS_ITS | Encounter Summary ---
Author Organization [facility] Address [facility] [place] [address] Care Team Providers Care Outsole Splicer Name Role Phone Laura Hidalgo APRN Primary Care Provider [phone] Reason for Visit * Reason Comments Medication Refill Encounter Details Date Type Department Care Team (Late st Contact Info) Description 10/22/2022 [place] [phone] Julio Welsh MD [facility] [place] [address] Social History Tobacco Use Types Packs/Day Years [...] place to sleep or slept in a snf (including now)? No 12/28/2021 Sex and Gender Information Value Date Recorded Sex Assigned at Female 12/11/2020 8:51 PM EDT Gender Identity Female 05/18/2021 7:21 PM EST Sexual Orientation Straight 05/18/2021 7: 21 PM EST documented as of this encounter Miscellaneous Notes * Telephone Encounter - Olena Santana RN - 10/22/2022 4:13 PM EDT Last visit 05/2022 documented in this encounter Plan of Treatment Not on file documented as of this encounter Visit Diagnoses Not on filedocumented in this encounter Care Teams Outsole Splicer Relationship Specialty Start Date End Date Laura Hidalgo APRN [address] [place] [address] PCP - General Internal Medicine 08/16/16 documented as of this encounter
--- OUTSIDE RECORDS SUMMARY | 2023-12-27 01:02 | XMS_ITS | Encounter Summary ---
Author Organization [facility] Address [facility] [place] [address] Care Team Providers Care Reservoir Engineering Advisor Name Role Phone Laura Hidalgo APRN Primary Care Provider [phone] Encounter Details Date Type Department Care Team (Latest Contact Info) Description 05/02/2022 Travel Social History Tobacco Use Types Packs/Day [...] place to sleep or slept in a long-term (including now)? No 12/28/2021 Sex and Gender Information Value Date Recorded Sex Assigned at Female 12/11/2020 8:51 PM EDT Gender Identity Female 05/18/2021 7:21 PM EST Sexual Orientation Straight 05/18/2021 7: 21 PM EST documented as of this encounter Plan of Treatment Not on file documented as of this encounter Visit Diagnoses Not on filedocumented in this encounter Care Teams Reservoir Engineering Advisor Relationship Specialty Start Date End Date Laura Hidalgo APRN [address] [place] [address] PCP - General Internal Medicine 08/16/16 documented as of this encounter
--- OUTSIDE RECORDS SUMMARY | 2023-12-27 01:02 | XMS_ITS | Encounter Summary ---
Author Organization [facility] Address [address] [place] [address] Care Team Providers Care Tube Trailer Filler Name Role Phone Glenn Castanon MD Primary Care Provider [phone] Encounter Details Date Type Department Care Team (Latest Contact Info) Description 06/07/2017 15:40 EST - 06/07/2017 23:59 EST Hospital Encounter [address] [address] Unknown, Provider, Discharge Disposition: Home or Self Care Social History Tobacco Use Types Packs/Day Years Used Date Smoking Tobacco: Never Assessed Sex and Gender Information Value Date Recorded Sex Assigned at Not on file Gender Identity Not on file Sexual Orientation Not on file documented as of this encounter Discharge Disposition Disposition Code Departure Means Destination Home or Self Detention documented in this encounter Plan of Treatment Not on file documented as of this encounter Visit Diagnoses Not on filedocumented in this encounter Care Teams Tube Trailer Filler Relationship Specialty Start Date End Date Glenn Castanon MD PCP - General 04/15/15 documented as of this encounter
--- OUTSIDE RECORDS SUMMARY | 2023-12-27 01:02 | XMS_ITS | Encounter Summary ---
Author Organization [facility] Address [address] [place] [address] Care Team Providers Care Parking Worker Name Role Phone Glenn Castanon MD Primary Care Provider [phone] Encounter Details Date Type Department Care Team (Latest Contact Info) Description 04/18/2017 12:48 EST - 04/18/2017 23:59 EST Hospital Encounter [address] [address] Unknown, Provider, Discharge Disposition: Home or Self Care Social History Tobacco Use Types Packs/Day Years Used Date Smoking Tobacco: Never Assessed Sex and Gender Information Value Date Recorded Sex Assigned at Not on file Gender Identity Not on file Sexual Orientation Not on file documented as of this encounter Discharge Disposition Disposition Code Departure Means Destination Home or Self Nursing Home documented in this encounter Plan of Treatment Not on file documented as of this encounter Visit Diagnoses Not on filedocumented in this encounter Care Teams Parking Worker Relationship Specialty Start Date End Date Glenn Castanon MD PCP - General 04/15/15 documented as of this encounter
--- OUTSIDE RECORDS SUMMARY | 2023-12-27 01:02 | XMS_ITS | Encounter Summary ---
Author Organization [facility] Address [address] [place] [address] Care Team Providers Care Log Handler Name Role Phone Unavailable Primary Care Provider Unavailabl e Encounter Details Date Type Department Care Team (Late st Contact Info) Description 01/03/2012 Results Only [facility] - [facility] [address] [place], [place] [id number] Olena Grossman, [facility] [address] [place] [address] Social History Tobacco Use Types Packs/Day Years Used Date Smoking Tobacco: Never Assessed Sex and Gender Information Value Date Recorded Sex Assigned at Not on file Gender Identity Not on file Sexual Orientation Not on file documented as of this encounter Plan of Treatment Not on file documented as of this encounter Procedures Procedure Name Priority Date/Time Associated Diagnosis Comments PAP TEST- RESULT ONLY Routine 01/03/2012 0:00 EDT documented in this encounter Results * PAP TEST- RESULT ONLY (01/03/2012 0:00 EDT) Pathology Report: CYTOPATHOLOGY REPORT Reports generated via electronic interface contain original data; however they are lacking the format of the original report. Caution should be taken when reading/interpreti ng unformatted reports. Name: ? PETER SANTIAGO ? Accession #: ? [id number] : ? 1975 (Age: 36) ??F ?Collect Date: ? 01/03/2012 Location: ? [facility] ? Receive Date: ? 01/04/2012 Provider: ?[facility] Copy to: ?JOSE PELAEZ MD ? Specimen/Source: ?Pap Test, Vagina, ThinPrep Imaging System with manual evaluation Last Menstrual Period: ? Treatment History: ? Hysterectomy ? SPECIMEN ADEQUACY ? Satisfactory for Evaluation - assessment of transformation zone component not applicable ( e.g. atrophy, vaginal sample, hysterectomy) GENERAL CATEGORIZATION ? Negative for Intraepithelial Lesion or Malignancy ? Document reviewed and electronically signed by: ? RASHIDA Parry(ASCP)(IAC) ? Report Date: ??01/12/2012 09:56 End of Report [facility] 01/03/2012 01/04/2012 Olena Grossman [facility] PATHOLOGY ORDERABLES Performing Organization Address City/State/[facility] Co de Phone Number [facility] [address] [place] [address] documented in this encounter Visit Diagnoses Not on filedocumented in this encounter
--- OUTSIDE RECORDS SUMMARY | 2023-12-27 01:02 | XMS_ITS | Encounter Summary ---
Author Organization [facility] Address [facility] [place] [address] Care Team Providers Care Hollow Handle Knife Assembler Name Role Phone Laura Hidalgo APRN Primary Care Provider [phone] Reason for Visit * Reason Comments Medication Refill Encounter Details Date Type Department Care Team (Late st Contact Info) Description 02/25/2022 [place] [phone] Julio Welsh MD [facility] [place] [address] Social History Tobacco Use Types Packs/Day Years [...] money to buy more. Never true 12/29/19 Within the past 12 months, t he [...] place to sleep or slept in a nursing home (including now)? No 12/28/2021 Sex and Gender Information Value Date Recorded Sex Assigned at Female 12/11/2020 8:51 PM EDT Gender Identity Female 05/18/2021 7:21 PM EST Sexual Orientation Straight 05/18/2021 7: 21 PM EST documented as of this encounter Miscellaneous Notes * Telephone Encounter - Litzy Choudhary RN - 02/25/2022 5:12 PM EDT Surescript request for: Meloxicam 7.5 mg tablet, take 1 tablet daily Last rx: 04/20/21 Quantity: 90 Refills: 1 From last note: The patient continues to have multiple neurological issues, ?? 1. As noted earlier, she had a stroke at the time of with no evidence of recurrence. Her MRI scan is stable. 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 ?? 2. She suffers from migraine, her symptoms [...] daily and riboflavin 200 mg twice daily. ?? 3. Her vision problems appear to have [...] infection. She needs to remain on Valtrex. ?? 4. She has sensorineural hearing loss bilaterally, and it is worse in the left ear. She is doing better with the hearing aid. Asymmetric hearing loss probably contributes to migrainous vertigo ?? 5. Because of her hemiparesis and obesity, she has musculoskeletal pain that switches a lot betweendifferent joints. She should continue with walks in a home exercise program. She recently had left heel cord lengthening surgery. I note that she suffers from osteoporosis. I will defer in this regard to her PCP. ?? 6. She has neurogenic bladder related to history of cerebral palsy. Urinalysis was unremarkable andultrasound of kidneys and bladder was also unremarkable. She feels the problem is not bad enough torequire additional medical therapy and it is reasonable to leave that issue alone for now. We can readdress it after the migraines are under better control ?? 7. I do not know what to do about her weight. She has gained a lot of over the years. I am sure it contributes to her health. Bariatric program here did not establish a connection with her. I would have to defer to her PCP. Last appt: 12/31/21 Next appt: not scheduled documented in this encounter Plan of Treatment Not on file documented as of this encounter Visit Diagnoses Not on filedocumented in this encounter Care Teams Hollow Handle Knife Assembler Relationship Specialty Start Date End Date Laura Hidalgo APRN [address] [place] [address] PCP - General Internal Medicine 08/16/16 documented as of this encounter
--- OUTSIDE RECORDS SUMMARY | 2023-12-27 01:02 | XMS_ITS | Encounter Summary ---
Author Organization [facility] Address [facility] [place] [address] Care Team Providers Care Key Ringer Name Role Phone Laura Hidalgo APRN Primary Care Provider [phone] Reason for Visit * Reason Comments Medication Refill Encounter Details Date Type Department Care Team (Late st Contact Info) Description 12/06/2022 [place] [phone] Julio Welsh MD [facility] [place] [address] Social History Tobacco Use Types Packs/Day Years [...] place to sleep or slept in a [facility] (including now)? No 11/08/2022 Education Answer Date [...] Telephone Encounter - Litzy Choudhary RN - 12/08/2022 9:23 AM EDT Medication request for : Baclofen 10 mg tablets, Amitriptyline 25 mg tablets, Topiramate 25 mg tablets Information from Last Rx filled: Baclofen Dose, Route, Frequency: As Directed Dispense Quantity: 90 tablet Refills: 0 Note to Pharmacy: ZERO refills remain on this prescription. Your patient is requesting advance approval of refills for this medication to PREVENT ANY MISSED DOSES Sig: TAKE 1 TABLET BY MOUTH THREE TIMES DAILY Start Date: 11/08/22 End Date: -- Written Date: 11/08/22 Amitriptyline Dose: 25 mg Route: Oral Frequency: NIGHTLY Dispense Quantity: 30 tablet Refills: 11 Sig: Take 1 tablet by mouth nightly. Start Date: 12/31/21 End Date: -- Written Date: 12/31/21 Topiramate Dose, Route, Frequency: As Directed Dispense Quantity: 30 tablet Refills: 1 Sig: TAKE 1 TABLET BY MOUTH TWICE DAILY Start Date: 11/04/22 End Date: -- Written Date: 11/04/22 From last note: The patient continues to [...] would have to defer to her PCP. I will see her back in 6 months or sooner if necessary. Last appt: 11/22/22 Next appt: 12/16/22 documented in this encounter Plan of Treatment Not on file documented as of this encounter Visit Diagnoses Not on filedocumented in this encounter Care Teams Key Ringer Relationship Specialty Start Date End Date Laura Hidalgo APRN [address] [place] [address] PCP - General Internal Medicine 08/16/16 documented as of this encounter
--- OUTSIDE RECORDS SUMMARY | 2023-12-27 01:02 | XMS_ITS | Encounter Summary ---
Author Organization [facility] Address [address] [place] [address] Care Team Providers Care Skip Loader Name Role Phone Unavailable Primary Care Provider Unavailabl e Encounter Details Date Type Department Care Team (Late st Contact Info) Description 02/23/2008 Before [facility] Converted Visit ([facility]) [facility] - [facility] conversion [address] [place] [address] Jose Berman MD [address] [place] [id number] Social History Tobacco Use Types Packs/Day Years Used Date Smoking Tobacco: Never Assessed Sex and Gender Information Value Date Recorded Sex Assigned at Not on file Gender Identity Not on file Sexual Orientation Not on file documented as of this encounter Plan of Treatment Not on file documented as of this encounter Procedures Procedure Name Priority Date/Time Associated Diagnosis Comments SURGICAL PATHOLOGY Routine 02/23/2008 0:00 EDT documented in this encounter Results * SURGICAL PATHOLOGY (02/23/2008 0:00 EDT) Pathology Report: SURGICAL PATHOLOGY REPORT ? Reports generated via electronic interface contain original data; ? however they are lacking the format of the original report. ? Caution should be taken when reading/interpreting unformatted reports. ? Name: ? DEVOID, ANGALA ? Accession #: ? [id number] ? : ? 1975 (Age: 32) ??F ? Collect Date: ? 02/23/2008 ? Location: ? [facility] ? Receive Date: ? 02/24/2008 ? Provider: JOSE S BENIGNO MD ? Copy to: ? Final Pathologic Diagnosis: ? 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 ??See microscopic and comment. ? Comment: ? This case has been shown in intradepartmental consultation. ? Microscopic Description: ? Sections consist of a shave biopsy of a central papule. ??The overlying ? epidermis and stratum corneum are relatively unremarkable, although in areas, ?? the epidermis shows rete effacement. ??Within the dermis is a sheet-like ? inflammatory infiltrate composed of lymphomononuclear cells, eosinophils, and ?? numerous foamy histiocytes, including giant cell forms (Touton type). (. ? Iván)/mpl ? Document reviewed and electronically signed by: ? KURT A IVÁN JOHNSON ? Report ??Date: 02/27/2008 17:00 ? By the signature above, the attending physician certifies that he/she has ? personally conducted a gross and/or microscopic examination of the described ? specimens and rendered or confirmed the above diagnosis. ? Specimen(s) Received: ? Shave biopsy R thigh ? Clinical History: ? Non-resolving tender lesion ? Gross Description: ? Received in formalin labelled Devoid and right thigh is a 1.2 x 0.9 x ?? 0.2 cm skin shave of talavera-alcantara skin with a central 0.7 x 0.5 cm pink-alcantara raised ?? well circumscribed nodular lesion. ??The specimen is quadrisected and entirely ?? submitted in a single cassette. ??(Denise Peace)/tmg ? End of Report ? [facility] 02/23/2008 02/24/2008 8:4 5 EDT Jose Berman MD PATHOLOGY ORDERABLES [facility] [address] [place] [address] documented in this encounter Visit Diagnoses Not on filedocumented in this encounter
--- OUTSIDE RECORDS SUMMARY | 2023-12-27 01:02 | XMS_ITS | Encounter Summary ---
[place] [address] Care Team Providers Care Radiation Monitor Name Role Phone Laura Hidalgo APRN Primary Care Provider Reason for Referral * Consultation (Routine) - Closed Specialty Diagnoses / Procedures Referred By Contvito t Referred To Contact Weight and Wellness Diagnoses Obesity, unspecified classification, unspecified obesity type, unspecified whether serious comorbidity present Laura Hidalgo APRN [address] [place] [address] [facility] [address] [place] [address] Referral ID Status Reason Start Date Expiration Date V isits Requested Visits Authorized [id number] Closed Consult, Test & Treat PCP Updated and/or Approved 02/12/2022 02/12/2023 1 1 Encounter Details Date Type Department Care Team (Latest Contact Info) Description 02/12/2022 Transcribe Orders eDH Incoming Referrals [phone] Laura Hidalgo APRN [address] [place], [place] [id number] Obesity, unspecified classification, unspecified obesity type, unspecified whether serious comorbidity present Social History Tobacco Use Types Packs/Day Years [...] place to sleep or slept in a retirement (including now)? No 12/28/2021 Sex and Gender Information Value Date Recorded Sex Assigned at Female 12/11/2020 8:51 PM EDT Gender Identity Female 05/18/2021 7:21 PM EST Sexual Orientation Straight 05/18/2021 7: 21 PM EST documented as of this encounter Plan of Treatment Scheduled Referrals Name Type Priority Associated Diagnoses Orde r Schedule Referral to [facility] Outpatient Referral Routine Obesity, unspecified classification, unspecified obesity type, unspecified whether serious comorbidity present Ordered: 02/12/2022 documented as of this encounter Visit Diagnoses Diagnosis Obesity, unspecified classification, unspecified obesity type, unspecified whether serious comorbidity present documented in this encounter Care Teams Radiation Monitor Relationship Specialty Start Date End Date Laura Hidalgo, CLOTH EXAMINER [address] [place] [address] PCP - General Internal Medicine 08/16/16 documented as of this encounter
--- OUTSIDE RECORDS SUMMARY | 2023-12-27 01:02 | XMS_ITS | Encounter Summary ---
Author Organization [facility] Address [address] [place] [address] Care Team Providers Care Accounting Bookkeeper Name Role Phone Unavailable Primary Care Provider Unavailabl e Encounter Details Date Type Department Care Team (Late st Contact Info) Description 04/01/2004 Results Only [facility] - Maple conversion [address] [place] [address] Alejandro Miner MD [address] [place], [place] [id number] Social History Tobacco Use Types Packs/Day Years Used Date Smoking Tobacco: Never Assessed Sex and Gender Information Value Date Recorded Sex Assigned at Not on file Gender Identity Not on file Sexual Orientation Not on file documented as of this encounter Plan of Treatment Not on file documented as of this encounter Procedures Procedure Name Priority Date/Time Associated Diagnosis Comments SURGICAL PATHOLOGY Routine 04/01/2004 0:00 EDT documented in this encounter Results * SURGICAL PATHOLOGY (04/01/2004 0:00 EDT) Pathology Report: SURGICAL PATHOLOGY REPORT Reports generated via electronic interface contain original data; however they are lacking the format of the original report. Caution should be taken when reading/interpreti ng unformatted reports. Name: ? PETER SANTIAGO ? Accession #: ? [id number] ? : ? 1975 (Age: 29) ??F ? Collect Date: ? 04/01/2004 ? Location: ? [facility] ? Receive Date: ? 04/01/2004 ? Provider: ALEJANDRO MINER MD Copy to: JUNAID KOEHLER MD ? Final Pathologic Diagnosis: A. ?Peritoneum, right side wall, biopsy: 1. ?Fibroadipose tissue with no definitive evidence of endometriosis. B. ?Uterus, cervix, bilateral ovaries, bilateral fallopian tubes, hysterectomy, and bilateral salpingo-oophorect juany: 1. ?Endometrium: ? - ??Inactive endometrium. 2. ?Myometrium: ? - ??No specific pathologic features. 3. ?Serosa: ? - ??Focal foreign body giant cell reaction of posterior serosa. - ??No polarizable material identified. 4. ?Cervix: ? - ??No specific pathologic features. 5. ?Fallopian tubes, bilateral: ? - ??No specific pathologic features. 6. ?Ovaries, bilateral: ? - ??Multiple follicular cysts. Comment: ? Histologic examination of the right pelvic sidewall (specimen A) and the hysterectomy and bilateral salpingo-oophorect junay (specimen B) is negative for definitive endometriosis. ??(Dr. Cooper)/[facility] Document reviewed and electronically signed by: Frantz Carmona MD Report ??Date: 04/03/2004 17:01 By the signature above, the attending physician certifies that he/she has personally conducted a gross and/or microscopic examination of the described specimens and rendered or confirmed the above diagnosis. Specimen(s) Received: ? Right side wall uterus, cervix, bilat ovaries Clinical History: ? PMH endometriosis Gross Description: ? Received in formalin labelled Marcel and #1 ??right side wall is a white, fibrous, hemorrhagic, irregular soft tissue fragment measuring 0.9 x 0.8 x 0.3 cm. ??The specimen is submitted intact as (A). Received in formalin labelled Marcel and #2 ??uterus, cervix, bilateral ovaries is the product of a hysterectomy and bilateral salpingo-oophorect juany. The corpus uteri and cervix measures 9.0 cm fundus to cervix, 6.5 cm cornu to cornu, and 4.3 cm anterior to posterior. ??The corpus uteri and cervix weighs 125 grams. ??The specimen is bivalved into anterior and posterior halves revealing a pink-orange endometrial surface with a moderate amount of adherent hemorrhage. Sectioning through the anterior and posterior halves demonstrate a 0.1 to 0.2 cm thick endometrium with an underlying pink, trabeculated myometrium averaging 1.6 cm in thickness. ??The outer half of the endometrium has dilated tubular structures without surrounding hemorrhage and most likely represent vessels. The pink-orange, focally hyperemic, smooth and glistening serosal surface does have a posterior wall 1.5 x 0.9 x 0.2 cm defect which is likely iatrogenic. ??The endoectocervix is unremarkable, and there is increased hemorrhage at the transition zone on the anterior surface. ??The attached left fallopian tube is purple-talavera, smooth and glistening, and measures 4.0 cm in length by 0.5 cm in average diameter. ??Sectioning demonstrates a 0.2 cm thick white fallopian tube wall to central lumen. ??The white, smooth and glistening, slightly cystic left ovary measures 3.0 x 1.9 x 1.1 cm. ??Sectioning through the ovary demonstrates multiple smooth-walled cysts containing clear fluid, one of which contains hemorrhagic material. ??The cyst range in size from 1.1 x 0.6 x 0.5 cm to 0.3 cm in maximum diameter. ??The attached right purple-talavera, smooth and glistening, previously interrupted fallopian tube is identified. ??The proximal segment measures 2.5 cm in length and the distal portion measures 2.0 cm in length. ??The average diameter is 0.4 cm. ??Sectioning through both portions demonstrate a 0.2 cm thick white fallopian tube wall with a centrally located lumen. ??The pink, smooth and glistening, and cystic right ovary measures 2.5 x 2.0 x 1.7 cm. Sectioning demonstrates similar smooth-walled, multicystic ovary containing clear fluid. ??No hemorrhagic material identified in the right ovary. Marble Machine Operator sections are submitted as follows: BLOCK VALADEZ B1 ?Full thickness posterior endomyometrium B2 ?Posterior cervix B3-B7 ?Posterior serosa B8 ?Anterior full thickness endomyometrium B9 ?Anterior myometrium B10 ?Anterior cervix B11 ?Right fallopian tube and ovary B12 ?Left fallopian tube and ovary (Dr. Cooper)/[facility] End of Report [facility] 04/01/2004 04/01/2004 15: 35 EDT Alejandro Miner MD PATHOLOGY ORDERABLES [facility] [address] [place] [address] documented in this encounter Visit Diagnoses Not on filedocumented in this encounter
--- OUTSIDE RECORDS SUMMARY | 2023-12-27 01:02 | XMS_ITS | Encounter Summary ---
Author Organization [facility] Address [facility] [place] [address] Care Team Providers Care Chief Fishery Division Name Role Phone Laura Hidalgo APRN Primary Care Provider [phone] Reason for Visit * Reason Comments Medication Refill Encounter Details Date Type Department Care Team (Late st Contact Info) Description 06/07/2023 [place] [id number] Alexander Fung MD [facility] [place] [address] Social History Tobacco Use Types Packs/Day Years [...] encounter Miscellaneous Notes * Telephone Encounter - Evelyne Cabrera [facility] - 06/08/2023 2:32 PM EST Prescription Renewal Request Name: Yuli Jj Nick : 1975 Prescription(s) Requested: Requested Prescriptions Pending Prescriptions Disp Refills meloxicam (Mobic) 7.5 mg tablet [Pharmacy Med Name: MELOXICAM 7.5 MG TABLET] 90 tablet 0 Sig: TAKE ONE TABLET BY MOUTH EVERY DAY Date of Encounter last in This Dept (If need an appointment send to secretaries to schedule): 12/16/2022, Agus Welsh MD Next Encounter in This Dept: 06/20/2023 Date of Last Refill (for each medication): 02/14/2023, 90:0 Status of request: Pended Allergies Allergen Reactions Allergenic Extracts Shortness Of Breath Pollen and dust Smoke--wheezing, water eyes Bactrim [Sulfamethoxazole-Trimethoprim] seizure Diflucan [Fluconazole] Unknown reaction Evelyne Cabrera CMA 06/08/23 2:32 PM documented in this encounter Plan of Treatment Not on file documented as of this encounter Visit Diagnoses Not on filedocumented in this encounter Care Teams Chief Fishery Division Relationship Specialty Start Date End Date Laura Hidalgo APRN [address] [place] [address] PCP - General Internal Medicine 08/16/16 documented as of this encounter
--- OUTSIDE RECORDS SUMMARY | 2023-12-27 01:02 | XMS_ITS | Encounter Summary ---
Author Organization [facility] Address [address] [place] [address] Care Team Providers Care Interventional Pain Physician Name Role Phone Unavailable Primary Care Provider Unavailabl e Encounter Details Date Type Department Care Team (Late st Contact Info) Description 04/30/2003 Results Only [facility] - Maple conversion [address] [place] [address] Olena Grossman, [facility] [address] [place] [address] Social History Tobacco Use Types [...] Priority Date/Time Associated Diagnosis Comments CYTOPATHOLOGY Routine 04/30/2003 0:00 EST documented in this encounter Results * CYTOPATHOLOGY (04/30/2003 0:00 EST) Pathology Report: CYTOPATHOLOGY REPORT Reports generated via electronic interface contain original data; however they are lacking the format of the original report. Caution should be taken when reading/interpreti ng unformatted reports. Name: ? PETER SANTIAGO ? Accession #: ? [id number] : ? 1975 (Age: 28) ??F ?Collect Date: ? 04/30/2003 Location: ? [facility] ? Receive Date: ? 05/03/2003 Provider: ?OLENA GROSSMAN MICROFILM MACHINE OPERATOR Copy to: ? Specimen/Source: ?ThinPrep Pap Test, Cervix/Endocervix Last Menstrual Period: ? 04/26/03 Previous Gynecologic Pathology: ? Benign cellular changes: , & 04/06 Other: ? Additional clinical information: Pap 04/07 neg. ? SPECIMEN ADEQUACY ? Unsatisfactory for Evaluation, - insufficient numbers of squamous epithelial cells (less than 10% of expected cellularity) GENERAL CATEGORIZATION ? Specimen processed and examined, but unsatisfactory for evaluation of epithelial abnormality. Recommend repeat Pap test or further follow up, as clinically indicated. ? Document reviewed and electronically signed by: ? RASHIDA Dorantes(ASCP) ? Report Date: ??05/09/2003 06:44 End of Report [facility] 04/30/2003 05/03/2003 Olena Grossman MICROFILM MACHINE OPERATOR PATHOLOGY ORDERABLES [facility] [address] [place] [address] documented in this encounter Visit Diagnoses Not on filedocumented in this encounter
--- OUTSIDE RECORDS SUMMARY | 2023-12-27 01:02 | XMS_ITS | Encounter Summary ---
Author Organization [facility] Address [address] [place] [address] Care Team Providers Care Project Director Name Role Phone Unavailable Primary Care Provider Unavailabl e Encounter Details Date Type Department Care Team (Late st Contact Info) Description 09/23/2004 Results Only [facility] - Maple conversion [address] [place] [address] Alejandro Miner MD [address] [place], [place] [phone] Social History Tobacco Use Types Packs/Day Years Used Date Smoking Tobacco: Never Assessed Sex and Gender Information Value Date Recorded Sex Assigned at Not on file Gender Identity Not on file Sexual Orientation Not on file documented as of this encounter Plan of Treatment Not on file documented as of this encounter Procedures Procedure Name Priority Date/Time Associated Diagnosis Comments SURGICAL PATHOLOGY Routine 09/23/2004 0:00 EDT documented in this encounter Results * SURGICAL PATHOLOGY (09/23/2004 0:00 EDT) Pathology Report: SURGICAL PATHOLOGY REPORT Reports generated via electronic interface contain original data; however they are lacking the format of the original report. Caution should be taken when reading/interpreti ng unformatted reports. Name: ? PETER SANTIAGO ? Accession #: ? [id number] ? : ? 1975 (Age: 29) ??F ? Collect Date: ? 09/23/2004 ? Location: ? [facility] ? Receive Date: ? 09/23/2004 ? Provider: ALEJANDRO MINER MD Copy to: JUNAID KOEHLER MD ? Final Pathologic Diagnosis: ? Vaginal cuff, biopsy: - Squamous-lined mucosa with marked granulation tissue and acute and chronic inflammatory ??infiltrate. Document reviewed and electronically signed by: DUNCAN ARIAS MD Report ??Date: 09/25/2004 10:32 By the signature above, the attending physician certifies that he/she has personally conducted a gross and/or microscopic examination of the described specimens and rendered or confirmed the above diagnosis. Specimen(s) Received: ? Vaginal cuff lesion Clinical History: ? Hemorrhagic vaginal mass, probably granulation Gross Description: ? Received in formalin labelled Rod and vaginal cuff lesion are two polypoid, pink, soft tissue fragments that measure 0.5 x 0.5 x 0.3 cm and 1.0 x 0.4 x 0.4 cm. ??Also received in the same container are two hemorrhagic tissue fragments that measure 0.4 x 0.3 x 0.3 cm and 0.5 x 0.4 x 0.3 cm. ??The specimen is submitted entirely in one cassette. ??(Dr. Joshi)/k End of Report [facility] 09/23/2004 09/23/2004 15: 28 EDT Alejandro Miner MD PATHOLOGY ORDERABLES [facility] [address] [place] [address] documented in this encounter Visit Diagnoses Not on filedocumented in this encounter
--- OUTSIDE RECORDS SUMMARY | 2023-12-27 01:02 | XMS_ITS | Encounter Summary ---
Author Organization [facility] Address [address] [place] [address] Care Team Providers Care Customer Success Representative Name Role Phone Unavailable Primary Care Provider Unavailabl e Encounter Details Date Type Department Care Team (Late st Contact Info) Description 02/04/2000 Results Only [facility] - Maple conversion [address] [place] [address] Alejandro Miner MD [address] [place], [place] [id number] Social History Tobacco Use Types Packs/Day Years Used Date Smoking Tobacco: Never Assessed Sex and Gender Information Value Date Recorded Sex Assigned at Not on file Gender Identity Not on file Sexual Orientation Not on file documented as of this encounter Plan of Treatment Not on file documented as of this encounter Procedures Procedure Name Priority Date/Time Associated Diagnosis Comments SURGICAL PATHOLOGY Routine 02/04/2000 0:00 EDT documented in this encounter Results * SURGICAL PATHOLOGY (02/04/2000 0:00 EDT) Pathology Report: SURGICAL PATHOLOGY REPORT Reports generated via electronic interface contain original data; however they are lacking the format of the original report. Caution should be taken when reading/interpreti ng unformatted reports. Name: ? PETER SANTIAGO ? Accession #: ? [id number] ? : ? 1975 (Age: 24) ??F ? Collect Date: ? 02/04/2000 ? Location: ? [facility] ? Receive Date: ? 02/04/2000 ? Provider: ALEJANDRO MINER MD Copy to: DANY DOBBINS [facility] DEONDRE RODRIGUEZ MD ? Final Pathologic Diagnosis: A. ?Fallopian tube, right, tubal ligation: 1. ?Segment of fallopian tube with complete cross section examined. B. ?Fallopian tube, left, tubal ligation: 1. ?Segment of fallopian tube with complete cross section examined. Document reviewed and electronically signed by: MELISA NAVARRO MD Report ??Date: 02/05/2000 15:34 By the signature above, the attending physician certifies that he/she has personally conducted a gross and/or microscopic examination of the described specimens and rendered or confirmed the above diagnosis. Specimen(s) Received: A. ?R fallopian tube (#1) B. ?L fallopian tube (#2) Clinical History: ? Post , desire for sterilization Gross Description: ? Received in formalin labelled Rod and #1 right fallopian tube is a alcantara-pink tubular 1.2 cm in length, 0.5 cm in diameter soft tissue surfaced by a alcantara wrinkled serosa. ??Upon sectioning, the cut surfaces are alcantara-white with a central pinpoint lumen. ??No discrete nodules are identified. ??Two associate sales representative sections are submitted as (A). Received in formalin labelled Rod and #2 left fallopian tube is a alcantara-pink tubular 1.0 cm in length, 0.3 cm in diameter soft tissue. ??Upon sectioning, the cut surfaces are alcantara-white with a central pinpoint lumen. ??No discrete nodules are identified. ??Two associate sales representative sections are submitted as (B). ??(Marco Ornelas)/ljn End of Report [facility] 02/04/2000 02/04/2000 8:4 8 EDT Alejandro Miner MD PATHOLOGY ORDERABLES Performing Organization Address City/State/[facility] Co de Phone Number [facility] [address] [place] [address] documented in this encounter Visit Diagnoses Not on filedocumented in this encounter
--- OUTSIDE RECORDS SUMMARY | 2023-12-27 01:02 | XMS_ITS | Encounter Summary ---
Author Organization [facility] Address [address] [place] [address] Care Team Providers Care Roadside Mechanic Name Role Phone Unavailable Primary Care Provider Unavailabl e Encounter Details Date Type Department Care Team (Late st Contact Info) Description 07/01/1999 Results Only [facility] - Maple conversion [address] [place] [address] Anisha Rosen, [place], [place] [phone] Social History Tobacco Use Types Packs/Day Years Used Date Smoking Tobacco: Never Assessed Sex and Gender Information Value Date Recorded Sex Assigned at Not on file Gender Identity Not on file Sexual Orientation Not on file documented as of this encounter Plan of Treatment Not on file documented as of this encounter Procedures Procedure Name Priority Date/Time Associated Diagnosis Comments CYTOPATHOLOGY Routine 07/01/1999 12:30 EST documented in this encounter Results * CYTOPATHOLOGY (07/01/1999 12:30 EST) Pathology Report: CYTOPATHOLOGY REPORT Reports generated via electronic interface contain original data; however they are lacking the format of the original report. Caution should be taken when reading/interpreti ng unformatted reports. Name: ? PETER SANTIAGO ? Accession #: ? [id number] : ? 1975 (Age: 24) ??F ?Collect Date: ? 07/01/1999 Location: ?Receive Date: ? 07/01/1999 Provider: ?ANISHA ROSEN CNM Copy to: ?ANISHA AGUIRREM ? Specimen/Source: ?Mechanical Project Manager ThinPrep Last Menstrual Period: ? GYNECOLOGIC ??CYTOPATHOLOGY ??REPORT Name: WILFREDO BRYANT[place] ? [facility] : 1975 ?? 24Y F ?Client ID: [id number] SS#: [id number] ? Clinician: ANISHA ROSEN CNM ?? Location: [facility] ??Copy to: ?? Specimen: ?Mechanical Project Manager ThinPrep ? Source: Cervix/Endocervix ?Collected: 06/29/99 ? Received: 07/01/1999 ?LMP: 05/01/99 ? Hormone Therapy: No ? : Yes ?Radiation Therapy: No ?? Post : No ?Chemotherapy: No ?IUD: No ? Prev Abnormal Pap: Yes ?? Clinical Hx: Benign cellular changes, Reactive cellular changes ? associated with inflammation (includes repair). ?(Blank patricia indicate information not provided on requisition) SPECIMEN ADEQUACY: ? Satisfactory For Evaluation ?? GENERAL CATEGORIZATION: ? BENIGN CELLULAR CHANGES ?? DESCRIPTIVE DIAGNOSIS: ? Predominance Of Coccobacilli Present Consistent With A Shift In ? Vaginal Merry ? Reviewed And Electronically Signed By: ? Segundo Mercado, CT(ASCP) ? Report Date: ?? 07/02/1999 Flux Archived Tests - Final Diagnosis Text Field: Clinical History : ;Benign cellular changes, Reactive cellular changes associated with inflammation (includes repair). ? Document reviewed and electronically signed by: ? Conversion ? Report Date: ??07/02/1999 00:00 End of Report [facility] 07/01/1999 12:3 0 EST 07/01/1999 12:31 EST Anisha Rosen CNM PATHOLOGY ORDERABLES [facility] [address] [place] [address] documented in this encounter Visit Diagnoses Not on filedocumented in this encounter
--- OUTSIDE RECORDS SUMMARY | 2023-12-27 01:02 | XMS_ITS | Encounter Summary ---
Author Organization [facility] Address [facility] [place] [address] Care Team Providers Care Contract Associate Name Role Phone Laura Hidalgo APRN Primary Care Provider [phone] Reason for Visit * Reason Comments Medication Refill Encounter Details Date Type Department Care Team (Late st Contact Info) Description 07/08/2023 [place] [phone] Julio Welsh MD [facility] [place] [address] Social History Tobacco Use Types Packs/Day Years [...] slept in a retirement (including now)? No 11/08/2022 Education Answer Date [...] encounter Miscellaneous Notes * Telephone Encounter - Gladis Fine MA - 07/08/2023 4:56 PM EST Prescription Renewal Request Name: Yuli Jj Nick : 1975 Prescription(s) Requested: Requested Prescriptions Pending Prescriptions Disp Refills amitriptyline (Elavil) 25 mg tablet [Pharmacy Med Name: AMITRIPTYLINE HCL 25 MG TAB] 30 tablet 5 Sig: TAKE ONE TABLET BY MOUTH EVERY EVENING Date of Encounter last in This Dept (If need an appointment send to secretaries to schedule): 12/16/22 Anitha Next Encounter in This Dept: 07/28/2023 Date of Last Refill (for each medication): 12/08/22 30 tabs with 5 refills Medication category requirements (labs etc): n/a Status of request: Pended Allergies Allergen Reactions Allergenic Extracts Shortness Of Breath Pollen and dust Smoke--wheezing, water eyes Bactrim [Sulfamethoxazole-Trimethoprim] seizure Diflucan [Fluconazole] Unknown reaction Gladis Fine MA 07/08/23 4:59 PM documented in this encounter Plan of Treatment Not on file documented as of this encounter Visit Diagnoses Not on filedocumented in this encounter Care Teams Contract Associate Relationship Specialty Start Date End Date Laura Hidalgo APRN [address] [place] [address] PCP - General Internal Medicine 08/16/16 documented as of this encounter
--- OUTSIDE RECORDS SUMMARY | 2023-12-27 01:02 | XMS_ITS | Encounter Summary ---
Author Organization [facility] Address [facility] [place] [address] Care Team Providers Care Supercalender Operator Helper Name Role Phone Laura Hidalgo APRN Primary Care Provider [phone] Encounter Details Date Type Department Care Team (Late st Contact Info) Description 12/31/2021 11:00 AM EDT [place] [phone] Julio Welsh MD [facility] [place] [address] Intractable migraine without status migrainosus, unspecified migraine type Social History Tobacco Use Types Packs/Day Years [...] place to sleep or slept in a halfway (including now)? No 12/28/2021 Sex and Gender Information Value Date Recorded Sex Assigned at Female 12/11/2020 8:51 PM EDT Gender Identity Female 05/18/2021 7:21 PM EST Sexual Orientation Straight 05/18/2021 7: 21 PM EST documented as of this encounter Last Filed Vital Signs Vital Sign Reading Time Taken Comments Blood Pressure 132/91 12/31/2021 10:41 AM EDT Pulse 75 12/31/2021 10:41 AM EDT Temperature - - Respiratory Rate - - Oxygen Saturation - - Inhaled Oxygen Concentration - - Weight 103.4 kg (228 lb) 12/31/2021 10:41 AM EDT Height 147.3 cm (4' 10) 12/31/2021 10:41 AM EDT Body Mass Index 47.65 12/31/2021 10:41 AM EDT documented in this encounter Patient Instructions * Patient Instructions* Julio Welsh MD - 12/31/2021 11:00 AM EDT I think you are doing about the same overall. Symptoms of migraine are worse and I think we should try some additional prevention. I have sent in prescriptions for magnesium oxide 1 pill daily, and riboflavin to be taken 2 pills twice a day. When you get a headache you can continue to use rizatriptan as you are doing now. Please also stay on the topiramate 25 mg twice daily for migraine prevention Because we are adding on to other medications, I would like you to reduce the dose of amitriptylinefrom 50 to 25 mg at night. I have rewritten the prescription I appreciate the problems you are having with your bladder, but I do not think we can add medicine for that until we have your headaches under better control I would like to see you back in 3 to 4 months or sooner if necessary I will see you back here in a few weeks. Julio Welsh MD Professor of neurology, [facility] Department of Neurology, [address] Pager: [phone], #[phone] Email: [email or web address] documented in this encounter Progress Notes * Julio Welsh MD - 12/31/2021 11:00 AM EDT Neurology clinic note Chief Complaint: Headaches, stroke, [...] still has some abdominal pain. As of 2017 the patient is doing reasonably well. She [...] equivalent. I spoke with her neurologist in [place] Dr. Thomson whom I know well. CT [...] 2021 she is about the same Headaches are somewhat worse. She is requiring treatment with rizatriptan once a week She still has urinary urgency She had surgery on her ankle and [...] with son. On disability Physical Exam: BP (!) 132/91 Pulse 75 Ht 147.3 cm (4' 10) Wt 103.4 kg (228 lb) BMI 47.65 kg/m?? Head, eyes, ears, nose and throat [...] on the left that she uses intermittently. Medications: Current Outpatient Medications Medication Sig Dispense Refill ??? topiramate (Topamax) 25 mg Tablet TAKE [...] Sublingual melatonin 10 mg sublingual tablet ??? meloxicam (MOBIC) 7.5 mg Tablet TAKE 1 TABLET BY MOUTH DAILY 90 tablet 1 ??? fluticasone propionate (FLONASE) 50 mcg/actuation [place], Suspension SHAKE LIQUID AND USE 2 SPRAYS [...] Take 500 mg by mouth daily. ??? magnesium oxide (Mag-Ox) 400 mg (241.3 mg magnesium) Tablet Take 1 tablet by mouth daily. 30 tablet 11 ??? riboflavin, Vitamin B2, (Vitamin B2) 100 mg Tablet Take 2 tablets by mouth 2 times daily. 120 tablet 11 ??? amitriptyline (Elavil) 25 mg Tablet Take 1 tablet by mouth nightly. 30 tablet 11 No current facility-administered medications for this visit. [...] after the migraines are under better control 7. I do not know what to do about her weight. She has gained a lot of over the years. I am sure it contributes to her health. Bariatric program here did not establish a connection with her. I would have to defer to her PCP. Thank you for this consultation. I will see her back in 3-4 months or sooner if necessary Julio Welsh MD [place] [address] Pager: [phone], #[phone] Email: [email or web address] CC: Laura Hidalgo APRN documented in this encounter Plan of Treatment Not on file documented as of this encounter Visit Diagnoses Diagnosis Intractable migraine without status migrainosus, unspecified migraine type documented in this encounter Care Teams Supercalender Operator Helper Relationship Specialty Start Date End Date Laura Hidalgo APRN [address] [facility] [place] [address] PCP - General Internal Medicine 08/16/16 documented as of this encounter
--- OUTSIDE RECORDS SUMMARY | 2023-12-27 01:02 | XMS_ITS | Encounter Summary ---
Author Organization [facility] Address [facility] [place] [address] Care Team Providers Care Community Health Advisor Name Role Phone Laura Hiadlgo APRN Primary Care Provider [phone] Reason for Visit * Reason Comments Medication Refill Encounter Details Date Type Department Care Team (Late st Contact Info) Description 09/15/2022 [place] [phone] Julio Welsh MD [facility] [address] NEUROLOGY DEPT. [address] Social History Tobacco Use Types Packs/Day Years [...] place to sleep or slept in a usp (including now)? No 12/28/2021 Sex and Gender Information Value Date Recorded Sex Assigned at Female 12/11/2020 8:51 PM EDT Gender Identity Female 05/18/2021 7:21 PM EST Sexual Orientation Straight 05/18/2021 7: 21 PM EST documented as of this encounter Miscellaneous Notes * Telephone Encounter - Olena Santana RN - 09/16/2022 12:20 PM EDT Last visit 05/2022 documented in this encounter Plan of Treatment Not on file documented as of this encounter Visit Diagnoses Not on filedocumented in this encounter Care Teams Community Health Advisor Relationship Specialty Start Date End Date Laura Hidalgo APRN [address] [place] [address] PCP - General Internal Medicine 08/16/16 documented as of this encounter
--- OUTSIDE RECORDS SUMMARY | 2023-12-27 01:02 | XMS_ITS | Encounter Summary ---
Author Organization [facility] Address [address] [place] [address] Care Team Providers Care Photovoltaic Power Systems Engineer Name Role Phone Unavailable Primary Care Provider Unavailabl e Encounter Details Date Type Department Care Team (Late st Contact Info) Description 04/14/2001 Results Only [facility] - [facility] [address] [place] [address] Olena Grossman, [facility] [address] [place] [phone] Social History Tobacco Use Types Packs/Day Years Used Date Smoking Tobacco: Never Assessed Sex and Gender Information Value Date Recorded Sex Assigned at Not on file Gender Identity Not on file Sexual Orientation Not on file documented as of this encounter Plan of Treatment Not on file documented as of this encounter Procedures Procedure Name Priority Date/Time Associated Diagnosis Comments CYTOPATHOLOGY Routine 04/14/2001 0:00 EST documented in this encounter Results * CYTOPATHOLOGY (04/14/2001 0:00 EST) Pathology Report: CYTOPATHOLOGY REPORT Reports generated via electronic interface contain original data; however they are lacking the format of the original report. Caution should be taken when reading/interpreti ng unformatted reports. Name: ? PETER SANTIAGO ? Accession #: ? [id number] : ? 1975 (Age: 26) ??F ?Collect Date: ? 04/14/2001 Location: ? [facility] ? Receive Date: ? 04/18/2001 Provider: ?OLENA GROSSMAN S[employer] MOUNTER Copy to: ? Specimen/Source: ?ThinPrep Pap Test, Cervix/Endocervix Last Menstrual Period: ? 03/31/01 Previous Gynecologic Pathology: ? Benign cellular changes: , ? SPECIMEN ADEQUACY ? Satisfactory for evaluation but limited by scant squamous epithelial component secondary to excessive inflammation. GENERAL CATEGORIZATION ? Benign Cellular Changes DESCRIPTIVE DIAGNOSIS ? Predominance of coccobacilli present consistent with shift in vaginal jim. ? Document reviewed and electronically signed by: ? ISAURA Leonardo(ASCP) ? Report Date: ??04/24/2001 12:54 End of Report RAMIREZ PETERSON 04/14/2001 04/18/2001 Olena Grossman S[employer]TER PATHOLOGY ORDERABLES Performing Organization Address City/State/[facility] [[email or web address]] Co de Phone Number RAMIREZ PETERSON [address] [place] [address] documented in this encounter Visit Diagnoses Not on filedocumented in this encounter
--- OUTSIDE RECORDS SUMMARY | 2023-12-27 01:02 | XMS_ITS | Encounter Summary ---
Author Organization [facility] Address [facility] [place] [address] Care Team Providers Care Silk Presser Name Role Phone Laura Hidalgo APRN Primary Care Provider [phone] Reason for Visit * Reason Comments Medication Refill Encounter Details Date Type Department Care Team (Late st Contact Info) Description 11/20/2022 Ref[place] [phone] Julio Welsh MD [facility] [place] [address] Social History Tobacco Use Types Packs/Day Years [...] money to buy more. Never true 11/09/19 Within the past 12 months, t he [...] slept in a halfway (including now)? No 11/08/2022 Education Answer Date [...] Telephone Encounter - Litzy Choudhary RN - 11/22/2022 10:15 AM EDT Medication request for : Oxybutynin 5 mg tablets Information from Last Rx filled: Dose, Route, Frequency: As Directed Dispense Quantity: 60 tablet Refills: 0 Sig: TAKE ONE TABLET BY MOUTH TWICE A DAY Start Date: 10/27/22 End Date: -- Written Date: 10/27/22 From last note: The patient continues to [...] months or sooner if necessary. Last appt: 05/06/22 Next appt: 12/16/22 documented in this encounter Plan of Treatment Not on file documented as of this encounter Visit Diagnoses Not on filedocumented in this encounter Care Teams Silk Presser Relationship Specialty Start Date End Date Laura Hidalgo APRN [address] [place] [address] PCP - General Internal Medicine 08/16/16 documented as of this encounter
--- OUTSIDE RECORDS SUMMARY | 2023-12-27 01:02 | XMS_ITS | Encounter Summary ---
Author Organization [facility] [place] [address] Care Team Providers Care Mice Raiser Name Role Phone Laura Hidalgo APRN Primary Care Provider [phone] Reason for Visit * Reason Comments Follow-up Encounter Details Date Type Department Care Team (Late st Contact Info) Description 12/05/2023 2:00 PM EDT [place] [phone] Julio Welsh MD [facility] [place] [address] Intractable migraine without status migrainosus, unspecified migraine [...] place to sleep or slept in a group home (including now)? No 11/08/2022 Education Answer Date [...] Sign Reading Time Taken Comments Blood Pressure 118/64 12/05/2023 1:47 PM EDT Pulse 79 12/05/2023 1:47 PM EDT Temperature - - Respiratory Rate - - Oxygen Saturation - - Inhaled Oxygen Concentration - - Weight 95.3 kg (210 lb) 12/05/2023 1:47 PM EDT Height 144.8 cm (4' 9) 12/05/2023 1:47 PM EDT Body Mass Index 45.44 12/05/2023 1:47 PM EDT documented in this encounter Patient Instructions * Patient Instructions* Julio Welsh MD - 12/05/2023 2:00 PM EDT I think you are doing about the same overall from the neurological standpoint.. I am glad that we have been able to wean you off the topiramate. I hope you will have no more kidney stones Please stay on the amitriptyline, vitamin B2 and aspirin and magnesium for prevention. Please stay on the rizatriptan to use as needed I appreciate the problems you are having with your bladder. Please continue with long-acting Ditropan 10 mg daily I would like to see you back in 5 months or sooner if necessary. I think your knee pain is more an orthopedic problem than a neurological one, and I will defer to whether you are seeing orthopedics Julio Welsh MD Professor of neurology, [facility] at [facility] Department of Neurology, [address] Pager: [phone], #[phone] Email: [email or web address] documented in this encounter Progress Notes * Julio Welsh MD - 12/05/2023 2:00 PM EDT Neurology clinic note Chief Complaint: Headaches, stroke, and hemiparesis. History: The patient was seen in follow-up today. She was accompanied by her mother As noted earlier, she had loss of [...] equivalent. I spoke with her neurologist in [place] Dr. Thomson whom I know well. CT [...] a bone scan recently that showed osteoporosis. As of 2021 she is about the same. Headaches were somewhat worse. She was requiring treatment with rizatriptan once a week. We added magnesium and riboflavin to her regimen and she is doing substantially better. She has gone for several weeks without needing rizatriptan. She still has urinary urgency, and feels she would like treatment. She had surgery on her ankle and foot for heel cord lengthening and nerve entrapment. She is still having pain but feels she has better mobility. She is going nicki treated for osteoporosis. She wanted to enroll in a weight loss program, but the program here did not establish a connection with. As of 2022 the situation is neurologically stable. Unfortunately she took a fall, and injured her left shoulder. It is in a sling. X-rays showed no fracture. She is complaining of a lot of pain and restriction of range of motion. She had what sounds like an infection of the right eye, and was seen by Dr. Eufemia Sadler in ophthalmology. 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 She still has symptoms of neurogenic bladder. Ditropan has helped a little. Headaches are doing quite well. Interval history: As of 2023 the patient is neurologically stable. Has been no recurrence of eye problems. Headaches are under good control. She is somewhat worse than before because we had to take her off topiramate. She uses rizatriptan about once a week The cerebral palsy appears to be stable. She is getting a new brace for her left leg. She is complaining more about pain in her knees and has follow-up with orthopedics locally She continues to have urological problems with recurrence of kidney stones, and persistent symptomsof urinary urgency. Ditropan XL 10 mg daily has helped somewhat. 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 Peripheral nerve entrapment syndrome Elevated LFTs Enteropathic arthropathies, left ankle and foot History of endometriosis Elevated cholesterol Pericardial effusion Postnasal drip Vaginal bleeding Migraine worsening noted in Herpes infection of left eye, now with retinopathy Equinus contracture of ankle Gallstone Gastroesophageal reflux disease Obstructive sleep apnea syndrome Cerebral palsy Hx of cholecystectomy Chronic pain of both knees Patellofemoral instability of both knees with pain Hearing loss, neural, unilateral Nontraumatic extensor tendon dislocation of left hand, s/p aberrant tendon resection and L 5th trigger finger release 12/26/15 (Dr. Ortiz) H/O cocaine abuse Trigger little finger of left hand S/P hysterectomy Osteoporosis Endometriosis Acute retinal necrosis of left eye Transient visual disturbance, right Afferent pupillary defect, left eye Calculus of kidney Review of systems: She is eating all right, Sleep is fair, occasionally disturbed by migraines. Bowel and bladder function is stable. She is having more diarrhea since her cholecystectomy Social History: Living at home with son. On disability Physical Exam: BP 118/64 (BP Location (NBP): Left arm, Patient Position: Sitting, BP Cuff Sizes: Large Adult (32-43 cm)) Pulse 79 Ht 144.8 cm (4' 9) Wt 95.3 kg (210 lb) BMI 45.44 kg/m?? Head, eyes, ears, nose and throat were normal. there was no significant tenderness. The tympanic membranes were clear at earlier visits. Heart and lungs were normal. 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 There is some rather nonspecific tenderness around both knees. Range of motion is restricted. Shoulder girdle musculature is weak in aneffort-related pattern She is mentally at baseline. Speech is normal. There is no sign of infection in either eye. She has complete loss of vision on the left and external deviation of the left eye. There is a stable left-sided visual field constriction in the right eye. Previously the optic disc was flat. Visual acuity was 20/30 with the 14 inch card and her glasses. Tuning fork tests suggested a moderate degree of sensorineural hearing loss bilaterally, worse on the left. She has more nystagmus in both eyes looking to the left. All this is stable. She has a mild left hemiparesis, it is unchanged. At present there is significant pain related weakness in the left shoulder girdle. Tone is slightly increased on the left. Strength is variable but substantially normal on the right with some give-way weakness. Reflexes are brisk but difficult to elicit on the paretic left side because of hypertonicity. She has minor sensory deficits on the left and right sides, that are somewhat inconsistent. Overallsensation is decreased on the paretic left side she has some tenderness around both knees, and lessso around the left ankle. There was no [...] Current Outpatient Medications Medication Sig Dispense Refill ELDERBERRY FRUIT ORAL Take by mouth. aspirin EC 81 mg EC (DR) tablet Take 1 tablet by mouth daily. amitriptyline (Elavil) 25 mg tablet TAKE ONE TABLET BY MOUTH EVERY EVENING 30 tablet 5 meloxicam (Mobic) 7.5 mg tablet TAKE ONE TABLET BY MOUTH EVERY DAY 90 tablet 0 oxybutynin (Ditropan-XL) 10 mg ER 24 hr tablet Take 1 tablet by mouth daily. 30 tablet 11 baclofen (Lioresal) 10 mg tablet TAKE 1 TABLET BY MOUTH 3 TIMES A DAY 90 tablet 5 omeprazole (PriLOSEC) [address] capsule TAKE ONE CAPSULE BY MOUTH EVERY DAY 90 capsule 3 rizatriptan (MAXALT) 10 mg Tablet Take 1 pill twice a day as needed. 10 pills is a 1 month supply. 10 tablet 5 melatonin 10 mg Tablet, Sublingual melatonin 10 mg sublingual tablet fluticasone propionate (FLONASE) 50 mcg/actuation [place], Suspension SHAKE LIQUID AND USE 2 SPRAYS IN EACH NOSTRIL DAILY atorvastatin (Lipitor) 20 mg Tablet TAKE 1 TABLET BY MOUTH AT BEDTIME. albuterol (PROAIR HFA) 90 mcg/actuation HFA Aerosol Inhaler INHALE 2 PUFFS INTO THE LUNGS DAILY NEEDED FOR WHEEZING, USE WITH SPACER. 8.5 g 5 valACYclovir (VALTREX) 500 mg tablet Take 500 mg by mouth daily. magnesium oxide (Mag-Ox) 400 mg (241.3 mg magnesium) Tablet TAKE ONE TABLET BY MOUTH EVERY DAY 30 tablet 11 riboflavin, Vitamin B2, (Vitamin B2) 100 mg Tablet Take 2 tablets by mouth 2 times daily. 120 tablet 11 No current facility-administered medications for this visit. Laboratory studies: None today. 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 Impression: The patient appears to be neurologically stable 1. As noted earlier, she had a stroke at the time of with no evidence of recurrence. Her MRI scan is stable. 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 2. She suffers from migraine, her symptoms of visual disturbance and vertigo may well have been a migraine equivalent. Prophylaxis is improved on amitriptyline, magnesium and riboflavin. She can use rizatriptan as needed. Because of kidney stones, we took her off topiramate. That probably contributed to some worsening, but I think we should leave things alone for now 3. Her vision problems appear to have [...] infection. She needs to remain on Valtrex. It seems that she had an infection in her good eye that has been addressed by Dr. Araujo. At present her visual acuity there is at baseline. 4. She has sensorineural hearing loss bilaterally, [...] will defer in this regard to her PCP and orthopedist.. 6. She has neurogenic bladder related to history of cerebral palsy. 10 mg of oxybutynin long-actingdaily seems somewhat helpful. Thank you for this consultation. I will see her back in 5 months or sooner if necessary. Julio Welsh MD [place] [address] Pager: [phone], #[phone] Email: [email or web address] CC: Laura Hardy DNP documented in this encounter Plan of Treatment Not on file documented as of this encounter Visit Diagnoses Diagnosis Intractable migraine without status migrainosus, unspecified migraine type documented in this encounter Care Teams Mice Raiser Relationship Specialty Start Date End Date Laura Hidalgo, ASTRONOMY DEPARTMENT CHAIR [address] [place] [address] PCP - General Internal Medicine 08/16/16 documented as of this encounter
--- OUTSIDE RECORDS SUMMARY | 2023-12-27 01:02 | XMS_ITS | Encounter Summary ---
Author Organization [facility] [place] [address] Care Team Providers Care Environmental Aid Name Role Phone Laura Hidalgo APRN Primary Care Provider [phone] Reason for Visit * Reason Onset Date Comments Medication Refill 06/10/2022 Encounter Details Date Type Department Care Team (Late st Contact Info) Description 06/10/2022 Ref[place] [phone] Julio Welsh MD [facility] [place] [address] Social History Tobacco Use Types Packs/Day Years [...] place to sleep or slept in a assisted (including now)? No 12/28/2021 Sex and Gender Information Value Date Recorded Sex Assigned at Female 12/11/2020 8:51 PM EDT Gender Identity Female 05/18/2021 7:21 PM EST Sexual Orientation Straight 05/18/2021 7: 21 PM EST documented as of this encounter Miscellaneous Notes * Telephone Encounter - Jeannie Tesfaye RN - 06/10/2022 3:15 PM EST rx line request for refill of baclofen Last appt 05/2022 From note: ?? 2. She suffers from migraine, her [...] daily and riboflavin 200 mg twice daily. FUV sched for 11/15/22 documented in this encounter Plan of Treatment Not on file documented as of this encounter Visit Diagnoses Not on filedocumented in this encounter Care Teams Environmental Aid Relationship Specialty Start Date End Date Larua Hidalgo APRN [address] [place] [address] PCP - General Internal Medicine 08/16/16 documented as of this encounter
--- OUTSIDE RECORDS SUMMARY | 2023-12-27 01:02 | XMS_ITS | Encounter Summary ---
Author Organization [facility] [place] [address] Care Team Providers Care Ship Carpenter Name Role Phone Laura Hidalgo APRN Primary Care Provider [phone] Reason for Visit * Reason Onset Date Comments Medication Refill 11/08/2022 Encounter Details Date Type Department Care Team (Late st Contact Info) Description 11/08/2022 [place] [phone] Julio Welsh MD [facility] [place] [address] Social History Tobacco Use Types Packs/Day Years [...] place to sleep or slept in a correction (including now)? No 11/08/2022 Education Answer Date [...] Telephone Encounter - Litzy Choudhary RN - 11/08/2022 10:24 AM EDT Medication request for : Baclofen 10 mg tablet Information from Last Rx filled: Dose, Route, Frequency: As Directed Dispense Quantity: 270 tablet Refills: 1 Note to Pharmacy: ZERO refills remain on this prescription. Your patient is requesting advance approval of refills for this medication to PREVENT ANY MISSED DOSES Sig: TAKE 1 TABLET BY MOUTH THREE TIMES DAILY Start Date: 06/10/22 End Date: -- Written Date: 06/10/22 From last note: The patient continues to [...] asked her to call in a few week Last appt: 05/06/22 Next appt: 11/15/22 documented in this encounter Plan of Treatment Not on file documented as of this encounter Visit Diagnoses Not on filedocumented in this encounter Care Teams Ship Carpenter Relationship Specialty Start Date End Date Laura Hidalgo APRN [address] [place] [address] PCP - General Internal Medicine 08/16/16 documented as of this encounter
--- OUTSIDE RECORDS SUMMARY | 2023-12-27 01:02 | XMS_ITS | Encounter Summary ---
Author Organization [facility] [place] [address] Care Team Providers Care Food Service Manager Name Role Phone Laura Hidalgo APRN Primary Care Provider [phone] Reason for Visit * Reason Comments Medication Refill Encounter Details Date Type Department Care Team (Late st Contact Info) Description 02/11/2023 Refill [place] [phone] Alexander Fung MD [facility] [place] [place] [address] Social History Tobacco Use Types Packs/Day Years [...] place to sleep or slept in a residential (including now)? No 11/08/2022 Education Answer Date [...] encounter Miscellaneous Notes * Telephone Encounter - Hannah Blunt RN - 02/14/2023 8:37 AM EDT Prescription Renewal Request Name: Yuli Romero : 1975 Prescription(s) Requested: Requested Prescriptions Pending Prescriptions Disp Refills meloxicam (Mobic) 7.5 mg tablet [Pharmacy Med Name: MELOXICAM 7.5 MG TABLET] 90 tablet 0 Sig: TAKE ONE TABLET BY MOUTH EVERY DAY Date of Encounter last in This Dept (If need an appointment send to secretaries to schedule): 12/16/22 Impression: The patient continues to have multiple neurological issues, As noted earlier, she had a stroke at the time of with no evidence of recurrence. Her MRI scan is stable. 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 She suffers from migraine, her symptoms of visual disturbance and vertigo may well have been a migraine equivalent. There was also evidence of polypharmacy and she seems better after reducing the doses of Topamax and baclofen. Prophylaxis is improved on magnesium and riboflavin. She can use rizatriptan as needed. Next Encounter in This Dept: 06/20/2023 Date of Last Refill (for each medication): 10/22/22 Medication category requirements (labs etc): None Status of request: Pended Allergies Allergen Reactions Allergenic Extracts Shortness Of Breath Pollen and dust Smoke--wheezing, water eyes Bactrim [Sulfamethoxazole-Trimethoprim] seizure Diflucan [Fluconazole] Unknown reaction Hannah Blunt RN 02/14/23 8:37 AM documented in this encounter Plan of Treatment Not on file documented as of this encounter Visit Diagnoses Not on filedocumented in this encounter Care Teams Food Service Manager Relationship Specialty Start Date End Date Laura Hidalgo APRN [address] [place] [address] PCP - General Internal Medicine 08/16/16 documented as of this encounter
--- OUTSIDE RECORDS SUMMARY | 2023-12-27 01:02 | XMS_ITS | Encounter Summary ---
Author Organization [facility] Address [address] [place] [address] Care Team Providers Care Collect On Delivery Clerk Name Role Phone Unavailable Primary Care Provider Unavailabl e Encounter Details Date Type Department Care Team (Late st Contact Info) Description 07/08/2008 Before PRISM Converted Visit (Maple) [facility] [place] - Maple conversion [address] [place] [address] Olena Grossman, [facility] [address] [place] [address] Social History Tobacco Use Types [...] Priority Date/Time Associated Diagnosis Comments CYTOPATHOLOGY Routine 07/08/2008 0:00 EST documented in this encounter Results * CYTOPATHOLOGY (07/08/2008 0:00 EST) Pathology Report: CYTOPATHOLOGY REPORT ? Reports generated via electronic interface contain original data; ? however they are lacking the format of the original report. ? Caution should be taken when reading/interpreti ng unformatted reports. ? Name: ? DEVOID, ANGALA ? Accession #: ? [id number] ? : ? 1975 (Age: 33) ??F ?Collect Date: ? 07/08/2008 ? Location: ? [facility] ? Receive Date: ? 07/08/2008 ? Provider: ?OLENA CECILE [facility] ? Copy to: ? Specimen/Source: ?Pap Test, Vagina, ThinPrep Imaging System with manual ?? evaluation ? Last Menstrual Period: ? 10/04 ? Previous Gynecologic Pathology: ? Benign cellular changes: 1/00, 11/00, 11/01 ? Treatment History: ? Hysterectomy: 10/04 LAV/BSO ? Other: ? HPVA - HPV testing requested if ASC-US on the current ThinPrep Pap test. ? SPECIMEN ADEQUACY ? Satisfactory for Evaluation ? - assessment of transformation zone component not applicable ( e.g. atrophy, ? vaginal sample, hysterectomy) ? GENERAL CATEGORIZATION ? Negative for Intraepithelial Lesion or Malignancy ? Document reviewed and electronically signed by: ? Quintin Partida, CT(ASCP) ? Report Date: ??07/15/2008 12:22 ? End of Report ? [facility] 07/08/2008 07/08/2008 Olena Grossman WE[facility] PATHOLOGY ORDERABLES [facility] [address] [place] [address] documented in this encounter Visit Diagnoses Not on filedocumented in this encounter
--- OUTSIDE RECORDS SUMMARY | 2023-12-27 01:02 | XMS_ITS | Encounter Summary ---
Author Organization [facility] Address [address] [place] [address] Care Team Providers Care Upholsterer Helper Name Role Phone Unavailable Primary Care Provider Unavailabl e Encounter Details Date Type Department Care Team (Late st Contact Info) Description 07/04/2007 Results Only [facility] [place] [facility] conversion [address] [place] [address] Paula Wilkins, NATHALIE Social History Tobacco Use Types Packs/Day Years Used Date Smoking Tobacco: Never Assessed Sex and Gender Information Value Date Recorded Sex Assigned at Not on file Gender Identity Not on file Sexual Orientation Not on file documented as of this encounter Plan of Treatment Not on file documented as of this encounter Procedures Procedure Name Priority Date/Time Associated Diagnosis Comments CYTOPATHOLOGY Routine 07/04/2007 0:00 EST documented in this encounter Results * CYTOPATHOLOGY (07/04/2007 0:00 EST) Pathology Report: CYTOPATHOLOGY REPORT Reports generated via electronic interface contain original data; however they are lacking the format of the original report. Caution should be taken when reading/interpreti ng unformatted reports. Name: ? PETER SANTIAGO ? Accession #: ? [id number] : ? 1975 (Age: 32) ??F ?Collect Date: ? 07/04/2007 Location: ? [facility] ? Receive Date: ? 07/04/2007 Provider: ?PAULA WILKINS INTERNET ASSESSOR Copy to: ? Specimen/Source: ?ThinPrep Pap Test, Vagina, processed on [employer] ThinPrep Imaging System, with manual evaluation Last Menstrual Period: ? Previous Gynecologic Pathology: ? Benign cellular changes: , & 04/06 Treatment History: ? Hysterectomy: /BSO 03/09 Other: ? HPVA - HPV testing requested if ASC-US on the current ThinPrep Pap test. ? SPECIMEN ADEQUACY ? Satisfactory for Evaluation - assessment of transformation zone component not applicable ( e.g. atrophy, vaginal sample, hysterectomy) GENERAL CATEGORIZATION ? Negative for Intraepithelial Lesion or Malignancy ? Document reviewed and electronically signed by: ? ISAURA Leonardo(ASCP) ? Report Date: ??07/10/2007 09:06 End of Report [facility] 07/04/2007 07/04/2007 Paula Wilkins NP PATHOLOGY ORDERABLES Performing Organization Address City/State/[facility] Co de Phone Number [facility] [address] [place] [address] documented in this encounter Visit Diagnoses Not on filedocumented in this encounter
--- OUTSIDE RECORDS SUMMARY | 2023-12-27 01:02 | XMS_ITS | Encounter Summary ---
Author Organization [facility] Address [facility] [place] [address] Care Team Providers Care Business Continuity Strategy Director Name Role Phone Laura Hidalgo APRN Primary Care Provider [phone] Encounter Details Date Type Department Care Team (Late st Contact Info) Description 07/28/2023 10:30 AM EST Office [place] [phone] Julio Welsh MD [facility] [address] Intractable migraine without status migrainosus, unspecified migraine [...] slept in a snf (including now)? No 11/08/2022 Education Answer Date [...] Sign Reading Time Taken Comments Blood Pressure 113/59 07/28/2023 10:32 AM EST Pulse 75 07/28/2023 10:32 AM EST Temperature - - Respiratory Rate - - Oxygen Saturation 94% 07/28/2023 10:32 AM EST Inhaled Oxygen Concentration - - Weight 95.7 kg (211 lb) 07/28/2023 10:32 AM EST pt reported Height 147.3 cm (4' 10) 07/28/2023 10:32 AM EST Body Mass Index 44.1 07/28/2023 10:32 AM EST documented in this encounter Patient Instructions * Patient Instructions* Julio Welsh MD - 07/28/2023 10:30 AM EST I think you are doing about the same overall from the neurological standpoint.. I am concerned however about the kidney stones. We cannot have you on topiramate if you are having recurrences of kidney stones Please go down on the dose of topiramate from 1 pill twice a day to 1 pill daily for 2 weeks, and then stop it altogether. If headaches worsen, please let me know and we will add another preventative. You are on some already. When you get a headache you can continue to use rizatriptan as you are doing now. I appreciate the problems you are having with your bladder. Please continue with long-acting Ditropan 10 mg daily I would like to see you back in 4 months or sooner if necessary. Julio Welsh MD Professor of neurology, [facility] [employer] at [facility] Department of Neurology, [address] Pager: [phone], #[phone] Email: [email or web address] documented in this encounter Progress Notes * Julio Welsh MD - 07/28/2023 10:30 AM EST Neurology clinic note Chief Complaint: Headaches, [...] equivalent. I spoke with her neurologist in [place] Dr. Thomson whom I know well. CT [...] eye problems. Headaches are under good control. The cerebral palsy appears to be stable. She continues to have urological problems with recurrence of kidney stones, and persistent symptomsof urinary urgency. Ditropan XL 10 mg daily has helped somewhat. Past medical history: Patient Active Problem List [...] some rather nonspecific tenderness around the right knee. She has initiated left shoulder which is in a sling. Range of motionis restricted. Shoulder girdle musculature is weak in an effort-related pattern She is mentally at baseline. Speech [...] substantially normal on the right with some give way [...] Current Outpatient Medications Medication Sig Dispense Refill naproxen (Naprosyn) 500 mg tablet Take 1 tablet by mouth 2 times daily as needed. 30 tablet 11 oxybutynin (Ditropan-XL) 10 mg ER 24 hr tablet Take 1 tablet by mouth daily. 30 tablet 11 baclofen (Lioresal) 10 mg tablet TAKE 1 TABLET BY MOUTH 3 TIMES A DAY 90 tablet 5 amitriptyline (Elavil) 25 mg tablet TAKE ONE TABLET BY MOUTH EVERY EVENING 30 tablet 5 topiramate (Topamax) 25 mg tablet TAKE ONE TABLET BY MOUTH TWICE A DAY 60 tablet 5 meloxicam (Mobic) 7.5 mg tablet TAKE ONE TABLET BY MOUTH EVERY DAY 90 tablet 0 omeprazole (PriLOSEC) [address] capsule TAKE ONE CAPSULE BY MOUTH EVERY DAY 90 capsule 3 magnesium oxide (Mag-Ox) 400 mg (241.3 mg magnesium) Tablet Take 1 tablet by mouth daily. 30 riboflavin, Vitamin B2, (Vitamin B2) 100 mg Tablet Take 2 tablets by mouth 2 times daily. 120 tablet 11 rizatriptan (MAXALT) 10 mg Tablet Take 1 pill twice a day as needed. 10 pills is a 1 month supply. 10 tablet 5 estradioL (ESTRACE) 0.01 % (0.1 mg/gram) Cream melatonin 10 mg Tablet, Sublingual melatonin 10 mg sublingual tablet fluticasone propionate (FLONASE) 50 mcg/actuation [place], Suspension SHAKE LIQUID AND USE 2 SPRAYS IN EACH NOSTRIL DAILY atorvastatin (Lipitor) 20 mg Tablet TAKE 1 TABLET BY MOUTH AT BEDTIME. albuterol (PROAIR HFA) 90 mcg/actuation HFA Aerosol Inhaler INHALE 2 PUFFS INTO THE LUNGS DAILY NEEDED FOR WHEEZING, USE WITH SPACER. 8.5 g 5 raloxifene (EVISTA) 60 mg tablet Take 60 mg by mouth daily. valACYclovir (VALTREX) 500 mg tablet Take 500 mg by mouth daily. No current facility-administered medications for this visit. [...] rizatriptan as needed. Because of kidney stones, I am recommending that she taper off the Topamax completely. She will go down to 25 mg daily for a week and then stop it altogether 3. Her vision problems appear to have [...] At present her visual acuity there is a baseline. 4. She has sensorineural hearing loss [...] mg of oxybutynin long-actingdaily seems somewhat helpful. The picture is complicated by recurrent kidney stones. I am getting her off the topiramate. She has follow- up in urology. Thank you for this consultation. I will see her back in 4 months or sooner if necessary. I have asked her to call in a few weeks Julio Welsh MD [place] [address] Pager: [phone], #[phone] Email: [email or web address] CC: Laura Hardy [facility] documented in this encounter Plan of Treatment Not on file documented as of this encounter Visit Diagnoses Diagnosis Intractable migraine without status migrainosus, unspecified migraine type documented in this encounter Care Teams Business Continuity Strategy Director Relationship Specialty Start Date End Date Laura Hidalgo APRN [address] [place] [address] PCP - General Internal Medicine 08/16/16 documented as of this encounter
--- OUTSIDE RECORDS SUMMARY | 2023-12-27 01:02 | XMS_ITS | Encounter Summary ---
Author Organization [facility] Address [facility] [place] [address] Care Team Providers Care Doormaker Name Role Phone Laura Hidalgo APRN Primary Care Provider [phone] Encounter Details Date Type Department Care Team (Latest Contact Info) Description 05/06/2022 Travel Social History Tobacco Use Types Packs/Day [...] place to sleep or slept in a half-way (including now)? No 12/28/2021 Sex and Gender Information Value Date Recorded Sex Assigned at Female 12/11/2020 8:51 PM EDT Gender Identity Female 05/18/2021 7:21 PM EST Sexual Orientation Straight 05/18/2021 7: 21 PM EST documented as of this encounter Plan of Treatment Not on file documented as of this encounter Visit Diagnoses Not on filedocumented in this encounter Care Teams Doormaker Relationship Specialty Start Date End Date Laura Hidalgo APRN [address] [place] [address] PCP - General Internal Medicine 08/16/16 documented as of this encounter
--- OUTSIDE RECORDS SUMMARY | 2023-12-27 01:02 | XMS_ITS | Encounter Summary ---
Author Organization [facility] [place] [address] Care Team Providers Care Screen Printer Name Role Phone Laura Hidalgo APRN Primary Care Provider [phone] Reason for Visit * Reason Onset Date Comments Medication Refill 07/26/2022 Encounter Details Date Type Department Care Team (Late st Contact Info) Description 07/26/2022 [place] [phone] Julio Welsh MD [facility] [place] [address] Social History Tobacco Use Types Packs/Day Years [...] slept in a residential (including now)? No 12/28/2021 Sex and Gender Information Value Date Recorded Sex Assigned at Female 12/11/2020 8:51 PM EDT Gender Identity Female 05/18/2021 7:21 PM EST Sexual Orientation Straight 05/18/2021 7: 21 PM EST documented as of this encounter Plan of Treatment Not on file documented as of this encounter Visit Diagnoses Not on filedocumented in this encounter Care Teams Screen Printer Relationship Specialty Start Date End Date Laura Hidalgo APRN [address] [facility] [place] [address] PCP - General Internal Medicine 08/16/16 documented as of this encounter
--- OUTSIDE RECORDS SUMMARY | 2023-12-27 01:02 | XMS_ITS | Clinical Summary ---
Author Organization [facility] Address [facility] [place] [address] Care Team Providers Care Assistant Operator Name Role Phone Laura Hidalgo APRN Primary Care Provider Allergies Active Allergy Reactions Criticality Noted Date Comments Allergenic Extracts Shortness Of Breath High 014 Pollen and dust Smoke--wheezing, water eyes Sulfamethoxazole-Trimet hoprim seizure Fluconazole Unknown reaction Medications Medication Sig Dispensed Refills Start Date End Date Status valACYclovir (VALTREX) 500 mg tablet Take 500 mg by mouth daily. 12/24/2010 Active albuterol (PROAIR HFA) 90 mcg/actuation HFA Aerosol Inhaler INHALE 2 PUFFS INTO THE LUNGS DAILY NEEDED FOR WHEEZING, USE WITH SPACER. 8.5 g 5 12/02/2016 Active atorvastatin (Lipitor) 20 mg Tablet TAKE 1 TABLET BY MOUTH AT BEDTIME. 08/17/2019 Active fluticasone propionate (FLONASE) 50 mcg/actuation Jordan, Suspension SHAKE LIQUID AND USE 2 SPRAYS IN EACH NOSTRIL DAILY 12/05/2020 Active melatonin 10 mg Tablet, Sublingual melatonin 10 mg sublingual tablet Active rizatriptan (MAXALT) 10 mg Tablet Take 1 pill twice a day as needed. 10 pills is a 1 month supply. 10 tablet 5 07/23/2021 Active riboflavin, Vitamin B2, (Vitamin B2) 100 mg Tablet Take 2 tablets by mouth 2 times daily. 120 tablet 11 12/31/2021 Active omeprazole (PriLOSEC) [address] capsule TAKE ONE CAPSULE BY MOUTH EVERY DAY 90 capsule 3 09/16/2022 Active baclofen (Lioresal) 10 mg tablet TAKE 1 TABLET BY MOUTH 3 TIMES A DAY 90 tablet 5 12/08/2022 Active oxybutynin (Ditropan-XL) 10 mg ER 24 hr tablet Take 1 tablet by mouth daily. 30 tablet 11 12/16/2022 Active magnesium oxide (Mag-Ox) 400 mg (241.3 mg magnesium) Tablet TAKE ONE TABLET BY MOUTH EVERY DAY 30 tablet 11 01/17/2023 Active meloxicam (Mobic) 7.5 mg tablet TAKE ONE TABLET BY MOUTH EVERY DAY 90 tablet 06/08/2023 Active amitriptyline (Elavil) 25 mg tablet TAKE ONE TABLET BY MOUTH EVERY EVENING 30 tablet 5 07/08/2023 Active ELDERBERRY FRUIT ORAL Take by mouth. Active aspirin EC 81 mg EC (DR) tablet Take 1 tablet by mouth daily. 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 01/12/2021 Peripheral nerve entrapment syndrome 01/12/2021 Elevated LFTs 12/18/2020 Enteropathic arthropathies, left ankle and foot 10/22/2020 History of endometriosis 10/22/2020 Elevated cholesterol 10/22/2020 Pericardial effusion 10/22/2020 Postnasal drip 10/22/2020 Vaginal bleeding 10/22/2020 Equinus contracture of ankle 09/03/2020 Gallstone 08/12/2020 Gastroesophageal reflux disease 08/12/2020 Obstructive sleep apnea syndrome 08/12/2020 Cerebral palsy 08/12/2020 Hx of cholecystectomy 06/05/2017 Chronic pain of both knees 04/13/2017 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 Ortiz) 12/03/2015 H/O cocaine abuse 12/03/2015 Trigger little finger of left hand 04/16/2015 S/P hysterectomy 02/18/2015 Osteoporosis 04/17/2014 Endometriosis 04/17/2014 Acute retinal necrosis of left eye 12/23/2011 Transient visual disturbance, right 12/23/2011 Afferent pupillary defect, left eye 12/23/2011 Calculus of kidney 01/06/2009 Migraine Overview (10/22/2020): worsening noted in Herpes Overview (10/22/2020): infection of left eye, now with retinopathy Encounters Date Type Department Care Team Description 12/05/2023 2:00 PM EDT [place] [id number] Julio Welsh MD Intractable migraine without status migrainosus, unspecified migraine type 12/04/2023 Travel from Last 3 Months Immunizations Name Administration Dates Next Due Moderna Covid-19 Monovalent 12Yr+ (Channel Marketing Specialist 100mcg) 05/13/2021,09/28/2020,08/31/2020 Family History Medical History Relation Comments Myocardial Infarction Father Breast Cancer Mother Emphysema Mother Thyroid Disease Mother Alcohol Use Disorder Other 1 Breast Cancer Other 2 aunt x 2 Liver Cancer Other 3 uncle Stroke Other 4 grandmother, s/p CEA Stroke Other 5 aunt Relation Status Comments Father Mother Other 1 Other 2 Other 3 Other 4 Other 5 Social History Tobacco Use Types Packs/Day Years [...] place to sleep or slept in a chcf (including now)? No 11/08/2022 Education Answer Date Recorded What is the highest level of school you have completed or the highest degree you have received? High school graduate 11/08/2022 Sex and Gender Information Value Date Recorded Sex Assigned at Female 12/11/2020 8:51 PM EDT Gender Identity Female 05/18/2021 7:21 PM EST Sexual Orientation Straight 05/18/2021 7: 21 PM EST Last Filed Vital Signs Vital Sign Reading Time Taken Comments Blood Pressure 118/64 12/05/2023 1:47 PM EDT Pulse 79 12/05/2023 1:47 PM EDT Temperature 35.5 ??C (95.9 ??F) 07/31/2021 11:[address] Respiratory Rate 18 07/31/2021 11:10 AM EST Oxygen Saturation 94% 07/28/2023 10:32 AM EST Inhaled Oxygen Concentration - - Weight 95.3 kg (210 lb) 12/05/2023 1:47 PM EDT Height 144.8 cm (4' 9) 12/05/2023 1:47 PM EDT Body Mass Index 45.44 12/05/2023 1:47 PM EDT Plan of Treatment Health Maintenance Due Date Last Done Comments CT Colonography 1975 Colonoscopy 1975 Colorectal Cancer Screening 1975 FIT DNA 1975 FIT 1975 Sigmoidoscopy (10 year) with FIT yearly 1975 Sigmoidoscopy 1975 HIV screen 1992 Hepatitis C Screening 1992 Hepatitis B vaccine (0-59 yrs) (1) 1993 Tdap adult 1993 Tetanus vaccine 1993 HPV test 2004 PAP Smear 2004 Breast Cancer Share Decision Needed 2014 Breast Cancer screening 2014 Diabetes Screening (HgbA1C o r Glucose) 07/26/2015 07/26/2012 Covid-19 Vaccine (5 - 2022-2 4 season) 2023 08/03/2022, 05/13/2021, 09/28/2020, Additional history exists Influenza (Flu) vaccine (1 o f 1 - Influenza standard series) 02/05/2024 Procedures Procedure Name Priority Date/Time Associated Diagnosis Comments BASIC METABOLIC PANEL (NON-FASTING) Routine 07/26/2012 5:51 PM EST from Last 3 Months or Most Recently Relevant to Health Maintenance Results * Basic Metabolic Panel (non-fasting) (07/26/2012 5:51 PM EST) [employer] Signature Glucose Lvl 102 60 - 199 mg/dL [facility] Comment:Diabetes: >=200 mg/d L plus symptoms BUN 17 8 - 18 mg/dL [facility] Creatinine 0.81 0.70 - 1.20 mg/dL [facility] Comment: Please note that the pediatric reference intervals supplied above were not validated at [facility]. Results from pediatric patients should be interpreted in conjunction to the patient's age, height and muscle mass. Sodium 139 135 - 145 mmol/L [facility] Potassium 3.8 3.5 - 5.0 mmol/L [facility] Comment: Please note: ??Patients with WBC >100,000 may have falsely elevated Potassium levels. ??For accurate Potassium quantification in these patients send serum separator tube (gold top) for subsequent determinations. ??Contact the Clinical Chemistry Laboratory if there are any questions. Chloride 104 98 - 107 mmol/L [facility]EN[facility] CO2 23 22 - 31 mmol/L [facility] Anion Gap 12 5 - 15 mmol/L [facility] Calcium 9.4 8.5 - 10.5 mg/dL [facility] Estimated GFR >60 >=60 [facility] Comment: The National Kidney Disease Education Program (NKDEP) has recommended all laboratories report estimated GFR (eGFR) along with plasma creatinine measurements to assist you with recognition of early kidney disease. Caveats: ??Plasma creatinine should be at steady-state (unchanged within the past week). For patients multiply eGFR by 1.2. The MDRD equation was developed using patients between the ages of 18 and 70 years. ?? The MDRD equation has not been validated for patients < 18 years of age and should not be used to assess renal function in the pediatric population. ??The MDRD eGFR equation will also overestimate the true GFR of patients above the age of 70. ??This overestimation is variable but increases with age. At present, NKDEP does NOT recommend using the MDRD equation for drug dosing purposes and pharmacists should continue to use their current dosing methods. In addition, numerical eGFR values greater than 60 ml/min/1.73 square meters should be treated as > 60, and not an exact number due to greater inaccuracies at these higher values. Per NKDEP, they classify normal renal function as any GFR >60ml/min/1.73 square meters; chronic kidney disease when GFR <60, and renal failure when GFR <15. ??This calculation may not be valid for patients with atypical muscle mass (very lean or obese), acute renal failure, and in patients with diabetic kidney disease. References: http://nkdep.nih.gov/resources/NKDEP_Suggestn4Labs_0606_508.pdf http://www.kidney.org/professionals/kls/pdf/faq_gfr.pdf Olvin K, Aashish NA, Quyen AK, Mateus TS, Meg AD, Jeanne GREG. Relative performance of the MDRD and CKD-EPI equations for estimating glomerular filtration rate among patients with varied clinical presentations. Clin J Am Soc Nephrol;6:1963-72. Blood specimen (specimen) 07/26/2012 5:51 PM EST 07/26/2012 5:55 PM EST Narrative Resulting Agency Comment Spec In Lab Becki Cisneros MD CHEMISTRY ORDERABLES [facility] from Last 3 Months or Most Recently Relevant to Health Maintenance Advance Directives * Full Code (Latest Code Status on File) Date Activated Date Inactivated Comments 12/26/2015 11:14 AM 12/26/2015 5:31 PM Question Answer Comments Does patient have capacity to make decision: Yes * Full Code Date Activated Date Inactivated Comments 07/26/2012 4:41 PM 07/28/2012 1:53 PM Question Answer Comments Order Status: Initial Order Does patient have decision m aking capacity? Yes, Order is based on Patients wishes. Care Teams Assistant Operator Relationship Specialty Start Date End Date Laura Hidalgo APRN [address] [place] [address] PCP - General Internal Medicine 08/16/16
--- OUTSIDE RECORDS SUMMARY | 2023-12-27 01:02 | XMS_ITS | Encounter Summary ---
Author Organization [facility] Address [facility] [place] [address] Care Team Providers Care Parcel Post Weigher Name Role Phone Laura Hidalgo APRN Primary Care Provider [phone] Reason for Visit * Reason Comments Medication Refill Encounter Details Date Type Department Care Team (Late st Contact Info) Description 10/25/2022 [place] [phone] Julio Welsh MD [facility] [place] [address] Social History Tobacco Use Types Packs/Day Years [...] Telephone Encounter - Litzy Choudhary RN - 10/27/2022 3:37 PM EDT Medication request for : Oxybutynin 5 mg tablet Information from Last Rx filled: Dose: 5 mg Route: Oral Frequency: 2 TIMES DAILY Dispense Quantity: 60 tablet Refills: 5 ?? Sig: Take 1 tablet by mouth 2 times daily. ?? Start Date: 05/06/22 End Date: -- Written Date: 05/06/22 From last note: The patient continues to [...] in a few weeks to report results. ?? 7. I do not know what to do about her weight. She has gained a lot of over the years. I am sure it contributes to her health. Bariatric program here did not establish a connection with her. I would have to defer to her PCP. ?? I will see her back in 6 months or sooner if necessary. I have asked her to call in a few weeks Last appt: 05/06/22 Next appt: 11/15/22 documented in this encounter Plan of Treatment Not on file documented as of this encounter Visit Diagnoses Not on filedocumented in this encounter Care Teams Parcel Post Weigher Relationship Specialty Start Date End Date Laura Hidalgo APRN [address] [place] [address] PCP - General Internal Medicine 08/16/16 documented as of this encounter
--- OUTSIDE RECORDS SUMMARY | 2023-12-27 01:02 | XMS_ITS | Encounter Summary ---
Author Organization [facility] Address [facility] [place] [address] Care Team Providers Care Assistant Associate Professor Name Role Phone Laura Hidalgo APRN Primary Care Provider [phone] Encounter Details Date Type Department Care Team (Latest Contact Info) Description 12/04/2023 Travel Social History Tobacco Use Types Packs/Day [...] place to sleep or slept in a custodial (including now)? No 11/08/2022 Education Answer Date [...] on filedocumented in this encounter Care Teams Assistant Associate Professor Relationship Specialty Start Date End Date Laura Hidalgo APRN [address] [place] [address] PCP - General Internal Medicine 08/16/16 documented as of this encounter
--- OUTSIDE RECORDS SUMMARY | 2023-12-27 01:02 | XMS_ITS | Encounter Summary ---
Author Organization [facility] Address [address] [place] [address] Care Team Providers Care Eye Glass Frame Polisher Name Role Phone Unavailable Primary Care Provider Unavailabl e Encounter Details Date Type Department Care Team (Late st Contact Info) Description 04/27/2002 Results Only [facility] - Maple conversion [address] [place] [address] Olena Grossman, [facility] [address] [place] [address] Social History Tobacco Use Types [...] Priority Date/Time Associated Diagnosis Comments CYTOPATHOLOGY Routine 04/27/2002 0:00 EST documented in this encounter Results * CYTOPATHOLOGY (04/27/2002 0:00 EST) Pathology Report: CYTOPATHOLOGY REPORT Reports generated via electronic interface contain original data; however they are lacking the format of the original report. Caution should be taken when reading/interpreti ng unformatted reports. Name: ? PETER SANTIAGO ? Accession #: ? [id number] : ? 1975 (Age: 27) ??F ?Collect Date: ? 04/27/2002 Location: ? [facility] ? Receive Date: ? 05/02/2002 Provider: ?OLENA GROSSMAN WASTEWATER TREATMENT PLANT ATTENDANT Copy to: ? Specimen/Source: ?ThinPrep Pap Test, Cervix/Endocervix Last Menstrual Period: ? 04/10/02 Previous Gynecologic Pathology: ? Benign cellular changes: , & 04/06 ? SPECIMEN ADEQUACY ? Satisfactory for Evaluation - transformation zone component present GENERAL CATEGORIZATION ? Negative for Intraepithelial Lesion or Malignancy ? Document reviewed and electronically signed by: ? Ant Izaguirre, CT(ASCP) ? Report Date: ??05/07/2002 10:43 End of Report RAMIREZ PETERSON 04/27/2002 05/02/2002 Olena Grossman WASTEWATER TREATMENT PLANT ATTENDANT PATHOLOGY ORDERABLES RAMIREZ PETERSON [address] [place] [address] documented in this encounter Visit Diagnoses Not on filedocumented in this encounter
--- OUTSIDE RECORDS SUMMARY | 2023-12-27 01:02 | XMS_ITS | Encounter Summary ---
Author Organization [facility] Address [facility] [place] [address] Care Team Providers Care Real Estate Paralegal Name Role Phone Laura Hidalgo APRN Primary Care Provider [phone] Reason for Visit * Reason Comments Medication Refill Encounter Details Date Type Department Care Team (Late st Contact Info) Description 01/14/2023 [place] [phone] Julio Welsh MD [facility] [place] [address] Social History Tobacco Use Types Packs/Day Years [...] slept in a assisted (including now)? No 11/08/2022 Education Answer Date [...] encounter Miscellaneous Notes * Telephone Encounter - Evi Jean Baptiste [facility] - 01/17/2023 6:46 PM EDT Prescription Renewal Request Name: Yuli Jj Nick : 1975 Prescription(s) Requested: Requested Prescriptions Pending Prescriptions Disp Refills magnesium oxide (Mag-Ox) 400 mg (241.3 mg magnesium) Tablet [Pharmacy Med Name: MAGNESIUM OXIDE 400MG TABLET] 30 tablet 11 Sig: TAKE ONE TABLET BY MOUTH EVERY DAY Notes from last encounter As of 2021 she is about the same. Headaches were somewhat worse. She was requiring treatment with rizatriptan once a week. We added magnesium and riboflavin to her regimen and she is doing substantially better. She suffers from migraine, her symptoms of visual disturbance and vertigo may well have been a migraine equivalent. There was also evidence of polypharmacy and she seems better after reducing the doses of Topamax and baclofen. Prophylaxis is improved on magnesium and riboflavin. Date of Encounter last in This Dept (If need an appointment send to secretaries to schedule): 12/16/21 Next Encounter in This Dept: 06/20/2023 Date of Last Refill (for each medication): 12/31/21 Medication category requirements (labs etc): n/a Status of request: Pended Allergies Allergen Reactions Allergenic Extracts Shortness Of Breath Pollen and dust Smoke--wheezing, water eyes Bactrim [Sulfamethoxazole-Trimethoprim] seizure Diflucan [Fluconazole] Unknown reaction Evi Jean Baptiste CMA 01/17/23 6:46 PM documented in this encounter Plan of Treatment Not on file documented as of this encounter Visit Diagnoses Not on filedocumented in this encounter Care Teams Real Estate Paralegal Relationship Specialty Start Date End Date Laura Hidalgo APRN [address] [place] [address] PCP - General Internal Medicine 08/16/16 documented as of this encounter
--- OUTSIDE RECORDS SUMMARY | 2023-12-27 01:02 | XMS_ITS | Encounter Summary ---
Author Organization [facility] Address [address] [place] [address] Care Team Providers Care Machine Puller Over Name Role Phone Unavailable Primary Care Provider Unavailabl e Encounter Details Date Type Department Care Team (Late st Contact Info) Description 04/22/2000 Results Only [facility] - Maple conversion [address] [place] [address] Anisha Rosen, [place], [place] [id number] Social History Tobacco Use Types Packs/Day Years Used Date Smoking Tobacco: Never Assessed Sex and Gender Information Value Date Recorded Sex Assigned at Not on file Gender Identity Not on file Sexual Orientation Not on file documented as of this encounter Plan of Treatment Not on file documented as of this encounter Procedures Procedure Name Priority Date/Time Associated Diagnosis Comments CYTOPATHOLOGY Routine 04/22/2000 0:00 EST documented in this encounter Results * CYTOPATHOLOGY (04/22/2000 0:00 EST) Pathology Report: CYTOPATHOLOGY REPORT Reports generated via electronic interface contain original data; however they are lacking the format of the original report. Caution should be taken when reading/interpreti ng unformatted reports. Name: ? PETER SANTIAGO ? Accession #: ? [id number] : ? 1975 (Age: 25) ??F ?Collect Date: ? 04/22/2000 Location: ? [facility] ? Receive Date: ? 04/26/2000 Provider: ?ANISHA ROSEN CNM Copy to: ? Specimen/Source: ?ThinPrep Pap Test, Cervix/Endocervix Last Menstrual Period: ? Menstrual/Pregnanc y Status: ? Post Previous Gynecologic Pathology: ? Benign cellular changes: Other: ? Additional clinical information: and WNL ? SPECIMEN ADEQUACY ? Satisfactory for evaluation. GENERAL CATEGORIZATION ? Benign Cellular Changes DESCRIPTIVE DIAGNOSIS ? Predominance of coccobacilli present consistent with shift in vaginal jim. ? Document reviewed and electronically signed by: ? RASHIDA Baugh(ASCP) ? Report Date: ??05/04/2000 11:40 End of Report RAMIREZ PETERSON 04/22/2000 04/26/2000 Anisha Rosen CNM PATHOLOGY ORDERABLES Performing Organization Address City/State/[facility] Co de Phone Number RAMIREZ PETERSON [address] [place] [address] documented in this encounter Visit Diagnoses Not on filedocumented in this encounter
--- OUTSIDE RECORDS SUMMARY | 2023-12-27 01:02 | XMS_ITS | Encounter Summary ---
Author Organization [facility] Address [facility] [place] [address] Care Team Providers Care Sewing Machinist Name Role Phone Laura Hidalgo APRN Primary Care Provider [phone] Encounter Details Date Type Department Care Team (Latest Contact Info) Description 12/09/2022 Travel Social History Tobacco Use Types Packs/Day [...] on filedocumented in this encounter Care Teams Sewing Machinist Relationship Specialty Start Date End Date Laura Hidalgo APRN [address] [place] [address] PCP - General Internal Medicine 08/16/16 documented as of this encounter
--- OUTSIDE RECORDS SUMMARY | 2023-12-27 01:02 | XMS_ITS | Encounter Summary ---
Author Organization [facility] Address [address] [place] [address] Care Team Providers Care Radio Division Officer Name Role Phone Unavailable Primary Care Provider Unavailabl e Encounter Details Date Type Department Care Team (Late st Contact Info) Description 11/13/2003 Results Only [facility] - Maple conversion [address] [place] [address] Alejandro Miner MD [address] [place], [place] [id number] Social History Tobacco Use Types Packs/Day Years Used Date Smoking Tobacco: Never Assessed Sex and Gender Information Value Date Recorded Sex Assigned at Not on file Gender Identity Not on file Sexual Orientation Not on file documented as of this encounter Plan of Treatment Not on file documented as of this encounter Procedures Procedure Name Priority Date/Time Associated Diagnosis Comments SURGICAL PATHOLOGY Routine 11/13/2003 0:00 EDT documented in this encounter Results * SURGICAL PATHOLOGY (11/13/2003 0:00 EDT) Pathology Report: SURGICAL PATHOLOGY REPORT Reports generated via electronic interface contain original data; however they are lacking the format of the original report. Caution should be taken when reading/interpreti ng unformatted reports. Name: ? PETER SANTIAGO ? Accession #: ? [id number] ? : ? 1975 (Age: 28) ??F ? Collect Date: ? 11/13/2003 ? Location: ? [facility] ? Receive Date: ? 11/13/2003 ? Provider: ALEJANDRO MINER MD Copy to: JUNAID KOEHLER MD ? Final Pathologic Diagnosis: A. ?Endometrium, curettage: 1. ?Scant superficial strips of inactive endometrium and endocervical mucosa. B. ?Peritoneum, uterosacral ligament, biopsy: 1. ?Mesothelial-line d fibroadipose tissue with focal chronic inflammation. ??See comment. C. ?Peritoneum, pelvic side wall, right, biopsy: 1. ?Mesothelial-line d fibroadipose tissue with focal endometriosis and chronic inflammation. ? See comment. Comment: ? Deeper sections of (B1), (B2), and (C) have been examined. (Dr. Coronado)/[employer] Document reviewed and electronically signed by: SAV CORONADO MD Report ??Date: 11/18/2003 16:19 By the signature above, the attending physician certifies that he/she has personally conducted a gross and/or microscopic examination of the described specimens and rendered or confirmed the above diagnosis. Specimen(s) Received: A. ?Endometrial curettings B. ?Uterosacral ligament C. ?Right pelvic sidewall Clinical History: ? Pelvic pain ??on Depo-Lupron ??obvious peritoneal scarring, implants of endometriosis Gross Description: ? Received in formalin labeled Rod and endometrial curettings is approximately 1.0 cc in aggregate of alcantara-brown mucoid material. ??The specimen is entirely submitted as (A). Received in formalin labeled Rod and uterosacral ligament is a roughly triangular piece of fibrous tissue with one surface demonstrating a pink smooth glistening aspect and the other aspect demonstrating a rough brown granular aspect possibly consistent with cautery. ??The specimen measures 2.0 x 1.3 x 0.7 cm and is entirely submitted as (B1) and (B2). Received in formalin labeled Rod and right pelvic sidewall is a 1.1 x 0.6 x 0.4 cm piece of alcantara-pink fibrous tissue. ??The specimen is trisected and submitted as (C). ??(Denise Norman)/[facility] End of Report RAMIREZ PETERSON 11/13/2003 11/13/2003 14: 53 EDT Alejandro Miner MD PATHOLOGY ORDERABLES RAMIREZ PETERSON [address] [place] [address] documented in this encounter Visit Diagnoses Not on filedocumented in this encounter
--- OUTSIDE RECORDS SUMMARY | 2023-12-27 01:02 | XMS_ITS | Encounter Summary ---
Author Organization [facility] [place] [address] Care Team Providers Care Ice Cream Shop Associate Name Role Phone Laura Hidalgo APRN Primary Care Provider [phone] Reason for Visit * Reason Onset Date Comments Medication Refill 11/04/2022 Encounter Details Date Type Department Care Team (Late st Contact Info) Description 11/04/2022 [place] [phone] Julio Welsh MD [facility] [address] Social History Tobacco Use Types Packs/Day Years [...] Telephone Encounter - Litzy Choudhary RN - 11/04/2022 10:04 AM EDT Medication request for : Topiramate 25 mg tablet Information from Last Rx filled: Dose, Route, Frequency: As Directed Dispense Quantity: 180 tablet Refills: 1 ?? Sig: TAKE 1 TABLET BY MOUTH TWICE DAILY ?? Start Date: 07/23/21 End Date: -- Written Date: 07/23/21 From last note: The patient continues to [...] on filedocumented in this encounter Care Teams Ice Cream Shop Associate Relationship Specialty Start Date End Date Laura Hidalgo APRN [address] [place] [address] PCP - General Internal Medicine 08/16/16 documented as of this encounter
--- OUTSIDE RECORDS SUMMARY | 2023-12-27 01:02 | XMS_ITS | Encounter Summary ---
Author Organization [facility] Address [facility] [place] [address] Care Team Providers Care Mixer Pigment Name Role Phone Laura Hidalgo APRN Primary Care Provider [phone] Encounter Details Date Type Department Care Team (Late st Contact Info) Description 12/16/2022 10:00 AM EDT [place] [phone] Julio Welsh MD [facility] [place] [address] Intractable migraine without status migrainosus, unspecified migraine [...] slept in a long-term (including now)? No 11/08/2022 Education Answer Date [...] PM EST documented as of this encounter Patient Instructions * Patient Instructions* Julio Welsh MD - 12/16/2022 10:00 AM EDT I think you are doing about the same overall from the neurological standpoint.. Migraine prevention seems to have improved somewhat on the present combination of medicines. I think you can continue this safely. When you get a headache you can continue to use rizatriptan as you are doing now. I appreciate the problems you are having with your bladder. Please try the long- acting 1 pill daily10 mg preparation of Ditropan to see if it works better. You can hold onto the 5 mg pills in case the 10 mg pill does not work for you. Let me know if it is not working. There are other options. The main problem right now is your shoulder. I think you have bruised the bone. Please try Naprosyn1 pill twice a day with food. I have sent in a prescription. You must keep moving the shoulder somewhat in the course of the day or it will freeze up I would like to see you back in 6 months or sooner if necessary. Julio Welsh MD Professor of neurology, [facility] [employer] at [facility] Department of Neurology, [address] Pager: [phone], #[phone] Email: [email or web address] [place] documented in this encounter Progress Notes * Julio Welsh MD - 12/16/2022 10:00 AM EDT Neurology clinic note Chief Complaint: [...] equivalent. I spoke with her neurologist in [place] Dr. Thomson whom I know well. CT [...] here did not establish a connection with. Interval history: As of 2022 the situation is neurologically [...] herpes infection that affected her left eye. He still has symptoms of neurogenic bladder. Ditropan has helped a little. Headaches are doing quite well. Past medical history: Patient Active Problem List Diagnosis Enteropathic arthropathies, left ankle and foot History of endometriosis Elevated cholesterol Pericardial effusion Postnasal drip Vaginal bleeding Migraine worsening noted in Herpes infection of left eye, now with retinopathy Equinus contracture of ankle Gallstone Gastroesophageal reflux disease Obstructive sleep apnea syndrome Cerebral palsy Chronic pain of both knees Patellofemoral instability [...] Take 1 tablet by mouth daily. 30 [id number] riboflavin, Vitamin B2, (Vitamin B2) 100 mg [...] sublingual tablet fluticasone propionate (FLONASE) 50 mcg/actuation Artesian, Suspension SHAKE LIQUID AND USE 2 SPRAYS [...] Laboratory studies: Orders Placed This Encounter Procedures US Retroperitoneal Complete: Pending Urinalysis with reflex Culture: Unremarkable in August 2020 Riboflavin. 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 [...] riboflavin. She can use rizatriptan as needed. 3. Her vision problems appear to have [...] defer in this regard to her PCP. She has a new injury to the left shoulder. I have taken the liberty of prescribing some Naprosyn. I advised her that she needs to continue with some range of motion to prevent the shoulder from freezing. 6. She has neurogenic bladder related to history of cerebral palsy. Urinalysis was unremarkable andultrasound of kidneys and bladder was also unremarkable. She would like treatment because she is going through a lot of Depends. Low-dose of Ditropan has helped with her symptoms. I advised her to try the 10 mg long- acting daily dose. 7. I do not know what to do about her weight. She has gained a lot of over the years. I am sure it contributes to her ataxia. Bariatric program here did not establish a connection with her. I would have to defer to her PCP. Thank you for this consultation. I will see her back in 6 months or sooner if necessary. I have asked her to call in a few weeks Julio Welsh MD [place] [address] Pager: [phone], #[phone] Email: [email or web address] [place] CC: Laura Hidalgo APRN documented in this encounter Plan of Treatment Not on file documented as of this encounter Visit Diagnoses Diagnosis Intractable migraine without status migrainosus, unspecified migraine type documented in this encounter Care Teams Mixer Pigment Relationship Specialty Start Date End Date Laura Hidalgo APRN [address] [place] [address] PCP - General Internal Medicine 08/16/16 documented as of this encounter
--- OUTSIDE RECORDS SUMMARY | 2023-12-27 01:02 | XMS_ITS | Encounter Summary ---
Author Organization [facility] Address [facility] [place] [address] Care Team Providers Care Die Developer Name Role Phone Laura Hidalgo APRN Primary Care Provider [phone] Encounter Details Date Type Department Care Team (Latest Contact Info) Description 07/28/2023 Travel Social History Tobacco Use Types Packs/Day [...] on filedocumented in this encounter Care Teams Die Developer Relationship Specialty Start Date End Date Laura Hidalgo APRN [address] [place] [address] PCP - General Internal Medicine 08/16/16 documented as of this encounter
--- OUTSIDE RECORDS SUMMARY | 2023-12-27 01:02 | XMS_ITS | Encounter Summary ---
Author Organization [facility] Address [address] [place] [address] Care Team Providers Care Healthcare Network Consultant Name Role Phone Glenn Castanon MD Primary Care Provider [phone] Encounter Details Date Type Department Care Team (Late st Contact Info) Description 06/01/2019 Lab Requisition [facility] Pathology & Laboratory Medicine - [address] [address] Unknown, Provider, Social History Tobacco Use Types Packs/Day Years Used Date Smoking Tobacco: Never Assessed Sex and Gender Information Value Date Recorded Sex Assigned at Not on file Gender Identity Not on file Sexual Orientation Not on file documented as of this encounter Plan of Treatment Not on file documented as of this encounter Procedures Procedure Name Priority Date/Time Associated Diagnosis Comments ESTRADIOL, ADULTS Routine 06/01/2019 9:20 EST FSH Routine 06/01/2019 9:20 EST documented in this encounter Results * FSH (06/01/2019 9:20 EST) FSH 102.5 See Note mIU/mL 06/04/2019 11:31 EST [facility] Blood VENOUS BLOOD / Unknown 06/01/2019 9:20 EST 06/01/2019 21:45 EST Narrative [facility] - 06/04/2019 11:31 EST NOTE: Female FSH Reference Ranges (>= 13 Menstruating): PHYSIOLOGICAL STATUS ? REFERENCE RANGE ? Follicular (-12 to -4 days): ?? 2.5 - 10.2 mIU/mL Midcycle (-3 to +2 days): ?3.4 - 33.4 mIU/mL Luteal (+4 to +12 days): ? 1.5 - 9.1 mIU/mL Postmenopausal: ?23.0 - 116.3 mIU/mL Reference Ranges for female patients <13 years old have not been established. Provider Unknown CHEMISTRY & BLOOD GA S ORDERABLES [facility] [address] [place] [address] * ESTRADIOL, ADULTS (06/01/2019 9:20 EST) [facility] Signature Estradiol <12 See Note pg/mL 06/01/2019 22:23 EST [facility] Comment: NOTE: Female Reference Ranges: MENSTRUATING FEMALES ? By day in cycle relative to LH peak ??Follicular Phase ? (-12 to -4 days): ?20 - 144 pg/mL ??Midcycle ? (-3 to +2 days): ? 64 - 357 pg/mL ??Luteal Phase ? (+4 t0 +12 days): ?56 - 214 pg/mL POSTMENOPAUSAL FEMALES ? <33 pg/mL *Cross reactivity with Fulvestrant could lead to a falsely elevated estradiol result in patients treated with this drug. Blood VENOUS BLOOD / Unknown 06/01/2019 9:20 EST 06/01/2019 21:45 EST Provider Unknown CHEMISTRY & BLOOD GA S ORDERABLES [facility] [address] [place] [address] documented in this encounter Visit Diagnoses Not on filedocumented in this encounter Care Teams Healthcare Network Consultant Relationship Specialty Start Date End Date Glenn Castanon MD PCP - General 04/15/15 documented as of this encounter
--- OUTSIDE RECORDS SUMMARY | 2023-12-27 01:02 | XMS_ITS | Encounter Summary ---
Author Organization [facility] Address [address] [place] [address] Care Team Providers Care Medicinal Plant Picker Name Role Phone Glenn Castanon MD Primary Care Provider [phone] Encounter Details Date Type Department Care Team (Late st Contact Info) Description 04/18/2017 Results Only [facility] [phone] Francesca Anderson MD [facility] [place], [place] [id number] Social History Tobacco Use Types Packs/Day Years Used Date Smoking Tobacco: Never Assessed Sex and Gender Information Value Date Recorded Sex Assigned at Not on file Gender Identity Not on file Sexual Orientation Not on file documented as of this encounter Plan of Treatment Not on file documented as of this encounter Procedures Procedure Name Priority Date/Time Associated Diagnosis Comments SURGICAL PATHOLOGY Routine 04/18/2017 16 :43 EST documented in this encounter Results * SURGICAL PATHOLOGY (04/18/2017 16:43 EST) Pathology Report: SURGICAL PATHOLOGY REPORT Reports generated via electronic interface contain original data; however they are lacking the format of the original report. Caution should be taken when reading/interpretin g unformatted reports. Name: ? PETER SANTIAGO ? Accession #: ? [id number] ? : ? 1975 (Age: 42) ??F ? Collect Date: ? 04/18/2017 ? Location: ? [facility] ? Receive Date: ? 04/18/2017 ? Provider: FRANCESCA ANDERSON MD Copy to: CAROLYN MAC NOTARY PUBLIC ? Final Pathologic Diagnosis: A. STOMACH, ANTRUM, BIOPSY: - Gastric antral and body mucosa with no specific pathologic features. B. GASTROESOPHAGEAL JUNCTION, BIOPSY: - Squamocolumnar junction mucosa with histologic features suggestive of mild reflux esophagitis. - Negative for intestinal metaplasia; Negative for dysplasia. ?? Document reviewed and electronically signed by: JOVANI REA MD Report ??Date: 04/20/2017 10:24 By the signature above, the attending physician certifies that he/she has personally conducted a gross and/or microscopic examination of the described specimens and rendered or confirmed the above diagnosis. Specimen(s) Received: A. ??Antral bxs for H. pylori B. ??Bxs GE junction Clinical History: GERD, abdominal pain Gross Description: A. ?Received in formalin labelled with proper patient identification (initials D, A) and antral biopsy are two fragments of alcantara-brown tissue measuring 0.3 x 0.2 x 0.2 cm. The specimens are submitted entirely in A1. B. ?Received in formalin labelled with proper patient identification (initials D, A) and bx GE junction are two fragments of alcantara-pink tissue measuring 0.2 cm and 0.3 cm in greatest dimension. The specimens are submitted entirely in B1. NAYE Read (ASCP) 04/18/2017 4:59 PM End of Report [facility] 04/18/2017 16:4 3 EST 04/18/2017 16:43 EST Francesca Anderson MD PATHOLOGY ORDERA HAO [facility] Organization Address City/State/ZIP Co de Phone Number [facility] [address] [place] [id number] documented in this encounter Visit Diagnoses Not on filedocumented in this encounter Care Teams Medicinal Plant Picker Relationship Specialty Start Date End Date Glenn Castanon MD PCP - General 04/15/15 documented as of this encounter
--- OUTSIDE RECORDS SUMMARY | 2023-12-27 01:03 | XMS_ITS | Encounter Summary ---
Author Organization [facility] [place] [address] Care Team Providers Care Model Technician Name Role Phone Laura Hidalgo APRN Primary Care Provider Encounter Details Date Type Department Care Team (Latest Contact Info) Description 10/22/2019 3:00 PM EDT TH Visit (TeleHealth) [place] [phone] Julio Welsh MD [facility] [place] [address] Intractable migraine with aura without status migrainosus; Chronic pain of right knee Social History Tobacco Use Types Packs/Day Years Used Date Smoking Tobacco: Former Cigarettes Q uit: 04/13/2007 Smokeless Tobacco: Never Alcohol Use Standard Drinks/Week Comments No 0 (1 standard drink = 0.6 oz pur e alcohol) Sex and Gender Information Value Date Recorded Sex Assigned at Female 12/11/2020 8:51 PM EDT Gender Identity Female 05/18/2021 7:21 PM EST Sexual Orientation Straight 05/18/2021 7: 21 PM EST documented as of this encounter Progress Notes * Julio Welsh MD - 10/22/2019 3:00 PM EDT Neurology clinic note Chief Complaint: Headaches, stroke, and hemiparesis. History: The patient was contacted by telephone. The patient understands that this is a telephone visit comparable to an office visit and that a service charge is generated. The patient wishes to proceed withthe conversation. I spoke with the patient and the total duration of the visit was 15 minutes. 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 I spoke with her neurologist in [place] Dr. Thomson whom I know well. CT scan of the head was unremarkable. Those symptoms are not resolved and have not recurred. In 2019 she continued to do well. she was having rare migrainous headaches. She has not had any major visual disturbances or vertigo. She continued to have leg pain. She was using a brace on the left. Apparently Medicaid would not pay for a brace for her right knee, but it was not certain that it was necessary. Interval history: In 2019 the patient was unable to come have a clinic visit because of the virus epidemic. I spoke with her on the phone. She is doing quite well. She goes for walks with her boyfriend. She still lives at home with her son. She remains on disability. Headaches are doing reasonably well. She gets bad month every few weeks to months. She has had no visual disturbances. She continues to have a variety of musculoskeletal symptoms. Past medical history: Patient Active Problem List Diagnosis ??? Chronic pain of both knees ??? 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 Hearing loss, neural, unilateral. She got a hearing aid for her left ear which is working well. ??? 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 Ortiz) ??? H/O alcohol abuse ??? H/O cocaine abuse ??? Pain in finger of left hand ??? Trigger little finger of left hand ??? S/P hysterectomy ??? Osteoporosis ??? Acute retinal necrosis of left eye ??? Transient visual disturbance, right ??? Afferent pupillary defect, left eye ??? CIS - Herpes infection, left eye blind ??? CIS - infantile stroke/hemiplegia syndrome ??? CIS - migraine Review of systems: She is eating all right, Sleep is fair, occasionally disturbed by migraines. Bowel and bladder function is stable. She is having more diarrhea since her cholecystectomy Social History: Living at home with son. On disability Physical Exam: As this is a telephone visit, the patient was not examined. Previous findings are given below. BP 114/72 (BP Location (NBP): Left arm, Patient Position: Sitting, BP Cuff Sizes: Large Adult (32-43 cm)) Pulse 85 Ht 147.3 cm (4' 10) Comment: Reported Wt 96.2 kg (212 lb) Comment: Reported BMI 44.31 kg/m?? Head, eyes, ears, nose and throat were normal. There was no significant tenderness. The tympanic membranes [...] visual field constriction in the right eye. Visual acuity was 20/40 with the 14 inch card and her glasses. Tuning fork tests suggest a moderate degree of sensorineural hearing loss bilaterally, worse on the left. . She has more nystagmus in both eyes looking to the left. All this is stable. She has a mild left hemiparesis, it is unchanged. Tone is slightly increased on the left. Strength is variable on the right with some give way weakness. Reflexes are brisk except for the left ankle reflex, which cannot be elicited. She has minor sensory deficits on the [...] She has an AFO splint on the left. Medications: Current Outpatient Medications Medication Sig Dispense Refill ??? atorvastatin (Lipitor) 20 mg Tablet TAKE 1 TABLET BY MOUTH AT BEDTIME. ??? cyclobenzaprine (Flexeril) 5 mg Tablet TK 1 T PO TID PRF MUSCLE SPASM ??? loratadine (Claritin) 10 mg Tablet TK 1 T PO D ??? triamcinolone (KENALOG) 0.1 % Cream APPLY TOPICALLY BID NEEDED FOR RASH ON LEFT NECK ??? baclofen (Lioresal) 10 mg Tablet TAKE 1 TABLET BY MOUTH THREE TIMES DAILY 90 tablet 5 ??? meloxicam (MOBIC) 7.5 mg Tablet TAKE 1 TABLET BY MOUTH EVERY DAY 90 tablet 1 ??? amitriptyline (Elavil) 50 mg Tablet Take 1 tablet by mouth every evening. 30 tablet 5 ??? topiramate (TOPAMAX) 25 mg Tablet take 1 tablet by mouth twice a day 120 tablet 5 ??? omeprazole (PRILOSEC) 40 mg Capsule, Delayed Release(E.C.) Take 40 mg by mouth daily. 0 ??? magnesium 250 mg Tablet Take 1 tablet by mouth 2 times daily. ??? calcium carbonate/vitamin D3 (CALCIUM + D ORAL) Take 1 tablet by mouth daily. ??? ranitidine (ZANTAC) 150 mg Tablet take 1 tablet by mouth twice a day 1 ??? hydrOXYzine (ATARAX) 25 mg Tablet Take 1 tablet by mouth 2 times daily as needed (dizziness). 30 tablet 0 ??? diclofenac (VOLTAREN) 1 % Gel Apply 2 g topically 2 times daily as needed. 100 g 0 ??? cholecalciferol, Vitamin D3, 50,000 unit Capsule Take 1 capsule by mouth once a week. 8 capsule0 ??? albuterol (PROAIR HFA) 90 mcg/actuation HFA Aerosol Inhaler INHALE 2 PUFFS INTO THE LUNGS DAILYAS NEEDED FOR WHEEZING, USE WITH SPACER. 8.5 g 5 ??? multivitamin (THERAGRAN) Tablet Take 1 tablet by mouth daily. ??? naproxen sodium (ANAPROX) 550 mg Tablet Take 1 tablet by mouth 2 times daily as needed. 30 tablet 11 ??? raloxifene (EVISTA) 60 mg tablet Take 60 mg by mouth daily. ??? valACYclovir (VALTREX) 500 mg tablet Take 500 mg by mouth daily. No current facility-administered medications for this visit. Impression: The patient continues to have multiple neurological issues, but is stable overall 1. As noted earlier, she had a stroke at the time of with no evidence of recurrence. Her MRI scan is stable. 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 2. She suffers from migraine, her most recent symptoms of visual disturbance and vertigo may well have been a migraine equivalent. There is also evidence of polypharmacy and she seems better after reducing the doses of Topamax and baclofen. She can use Naprosyn 500 mg twice daily as needed and hydroxyzine 25 mg twice daily as needed for bad headaches or bad dizziness 3. Her vision problems appear to have stabilized. She has complete loss of vision on the left following the herpetic infection, but it seems substantially normal on the right. There is a subtle visual field deficit associated with a hemiparalysis. Some of her problem was I believe [...] with walks in a home exercise program. Thank you for this consultation. I will see her back in 12 months or sooner as needed. Julio Welsh MD [place] [address] Pager: [phone], #[phone] Email: [email or web address] [place] CC: Laura Thomson documented in this encounter Plan of Treatment Not on file documented as of this encounter Visit Diagnoses Diagnosis Intractable migraine with aura without status migrainosus Migraine with aura, with intractable migraine, so stated, without mention of status migrainosus Chronic pain of right knee documented in this encounter Care Teams Model Technician Relationship Specialty Start Date End Date Laura Hidalgo APRN [address] [place] [address] PCP - General Internal Medicine 08/16/16 documented as of this encounter
--- OUTSIDE RECORDS SUMMARY | 2023-12-27 01:03 | XMS_ITS | Encounter Summary ---
Author Organization [facility] [place] [address] Care Team Providers Care Cath Lab Manager Name Role Phone Laura Hidalgo APRN Primary Care Provider [phone] Reason for Visit * Reason Comments Medication Refill Encounter Details Date Type Department Care Team (Late st Contact Info) Description 06/08/2020 [place] [phone] Julio Welsh MD [facility] [place] [address] Social History Tobacco Use Types Packs/Day Years [...] Telephone Encounter - Jeannie Tesfaye RN - 06/09/2020 1:06 PM EST surescript for amitriptyline last rx 12/2019 FUV needed 10/2020 Last appt 10/2019 documented in this encounter Plan of Treatment Not on file documented as of this encounter Visit Diagnoses Not on filedocumented in this encounter Care Teams Cath Lab Manager Relationship Specialty Start Date End Date Laura Hidalgo APRN [address] [place] [address] PCP - General Internal Medicine 08/16/16 documented as of this encounter
--- OUTSIDE RECORDS SUMMARY | 2023-12-27 01:03 | XMS_ITS | Encounter Summary ---
Author Organization [facility] Address [facility] [place] [address] Care Team Providers Care Cash Specialist Name Role Phone Laura Hidalgo APRN Primary Care Provider [phone] Reason for Visit * Reason Comments IV Medication * High Dollar Medication (Routine) - Closed Specialty Diagnoses / Procedures Referred By Contac t Referred To Contact Hematology and Oncology Diagnoses Osteoporosis, unspecified osteoporosis type, unspecified pathological fracture presence Procedures Zolendronic Acid (Reclast) Authorization Request TC ZOLEDRONIC ACID, 1 MG, INJECTION [id number] RECSAMT Lizzie Silvestre MD [facility] [address] [facility] Hem Onc Office [address] [place] [phone] Referral ID Status Reason Start Date Expiration Date V isits Requested Visits Authorized [id number] Closed Consult, Test & Treat 07/08/2021 08/23/2021 99 99 Encounter Details Date Type Department Care Team (Late st Contact Info) Description 07/31/2021 10:30 AM EST Infusion Hematology Oncology at [address] [phone] Osteoporosis, unspecified osteoporosis type, unspecified pathological fracture presence Social History Tobacco Use Types Packs/Day Years [...] care, and heating? Not hard at all 06/16/2021 Exercise Vital Sign Answer Date Recorde d On average, how many days pe r week do you engage in moderate to strenuous exercise (like a brisk walk)? 2 days 06/16/2021 On average, how many minutes do you engage in exercise at this level? 10 min 06/16/2021 Hunger Vital Sign Answer Date Recorded Within the past 12 months, y ou worried that your food would run out before you got the money to buy more. Never true 06/16/19 22 Within the past 12 months, t he food you bought just didn't last and you didn't have money to get more. Never true 06/16/2021 PRAPARE - Transportation Answer Date Re corded In the past 12 months, has l ack of transportation kept you from medical appointments or from getting medications? No 06/06 In the past 12 months, has l ack of transportation kept you from meetings, work, or from getting things needed for daily living? No 06/16/2021 Housing Stability Vital Sign Answer João e Recorded In the last 12 months, was t here a time when you were not able to pay the mortgage or rent on time? No 06/16/2021 In the last 12 months, how many places have you lived? 1 06/16/2021 In the last 12 months, was t here a time when you did not have a steady place to sleep or slept in a chcf (including now)? No 06/16/2021 Sex and Gender Information Value Date Recorded Sex Assigned at Female 12/11/2020 8:51 PM EDT Gender Identity Female 05/18/2021 7:21 PM EST Sexual Orientation Straight 05/18/2021 7: 21 PM EST documented as of this encounter Last Filed Vital Signs Vital Sign Reading Time Taken Comments Blood Pressure 131/55 07/31/2021 11:10 AM EST Pulse 92 07/31/2021 11:10 AM EST Temperature 35.5 ??C (95.9 ??F) 07/31/2021 1 1:10 AM EST Respiratory Rate 18 07/31/2021 11:1 0 AM EST Oxygen Saturation - - Inhaled Oxygen Concentration - - Weight 104.9 kg (231 lb 3.2 oz) 022 11:10 AM EST Height 147.8 cm (4' 10.19) 07/31/2021 11:10 AM EST Body Mass Index 48.01 07/31/2021 11:10 AM EST documented in this encounter Progress Notes * Eladio Thornton RN - 07/31/2021 10:30 AM EST INFUSION THERAPY ADMINISTRATION NOTES DIAGNOSIS: OSTEOPOROSIS REASON FOR VISIT: Reclast infusion SUBJECTIVE ANGALA offers no complaints. OBJECTIVE LAB DATA: WNL Ca 9.6; BUN 17; Creat 0.9; Est GFR 60 Pre administration: Chemotherapy orders independently verified for drug name, route, and dosage per patient's height, weight and BSA by Prince MESSER and Pharm Jesus. REACTIONS (DESCRIPTION, TIME, INTERVENTION AND EFFECTIVENESS) none ASSESSMENT Yuli was awake, alert and tolerated treatment well. PLAN Return to clinic as scheduled. documented in this encounter Plan of Treatment Not on file documented as of this encounter Visit Diagnoses Diagnosis Osteoporosis, unspecified osteoporosis type, unspecified pathological fracture presence documented in this encounter Administered Medications Inactive Administered Medications - up to 3 most recent administrations Medication Order MAR Action Action Date Dose Rate Site acetaminophen (Tylenol) tablet 650 mg 650 mg, Oral, ONCE, 1 dose, On Tue07/31/21 at 1145, Pre-medication., Outpatient Transfusion, Routine Given 07/31/2021 11:34 AM EST 650 mg zoledronic acid (Reclast) 5 mg in mannitol and water 100 mL infusion 5 mg 5 mg, Intravenous, ONCE, 1 dose, On Tue07/31/21 at 1145, Administer over 30 Minutes, Hold dose for CrCl< 35 mL/min. Do not mix with IV Calcium-containing products. Administer over no less than 15 minutes., Outpatient Transfusion, Indication for: Osteoporosis, prevention of fractures New Bag 07/31/2021 11:44 AM EST 5 mg 200 mL/hr documented in this encounter Care Teams Cash Specialist Relationship Specialty Start Date End Date Laura Hidalgo, REGULATORY MANAGER [address] [place] [address] PCP - General Internal Medicine 08/16/16 documented as of this encounter
--- OUTSIDE RECORDS SUMMARY | 2023-12-27 01:03 | XMS_ITS | Encounter Summary ---
Author Organization [facility] Address [facility] [place] [address] Care Team Providers Care Mobile Health Vehicle Operator Name Role Phone Laura Hidalgo APRN Primary Care Provider [phone] Reason for Visit * Consultation (Routine) - Closed Specialty Diagnoses / Procedures Referred By Jay t Referred To Contact Endocrinology Diagnoses Age-related osteoporosis without current pathological fracture patient also has Cerebral palsy Laura Hidalgo APRN [address] [place] [address] [facility] [address] [place] [phone] Referral ID Status Reason Start Date Expiration Date V isits Requested Visits Authorized [id number] Closed Consult, Test & Treat [facility] PCP Updated and/or Approved 12/18/2020 12/18/2021 6 6 Encounter Details Date Type Department Care Team (Latest Contact Info) Description 03/23/2021 10:30 AM EDT TH Visit (TeleHealth) [place] [address] Lizzie Silvestre MD [facility] [place] [address] Osteoporosis, unspecified osteoporosis type, unspecified pathological fracture [...] as of this encounter Progress Notes * Lizzie Silvestre MD - 03/23/2021 10:30 AM EDT Date of Visit: 03/23/2021 Patient Name: Yuli Romero : 1975 PCP: Laura Hidalgo APRN Reason for Referral We are asked to consult on Mrs Yuli Romero for osteoporosis by Laura Hidalgo APRN. Mrs Romerois 46 yo, with cerebral palsy, frequent falls as yimi L leg is week and no minimal trauma fracture as she walks with caballero. She was on Evista per patient for 4-5 years, but no other treatment for osteoporosis. Had BSO-SHANE as per patient at age 28 due to endometriosis. Was on ERT but I was allergic to it. Has had 3 episodes of kidney stones, one was remove surgically. Her last BMD by DXA done on 12/2020 LS - 3.1 SD LFN -2.5 SD LH -2.3 SD on T score (was -2.1 in 2018) Other risk factors for fracture/osteoporosis are: [] Yes [x] No Smoking, if yes, how long [] Yes [x] No Drinking alcohol. 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 If yes, When and what kind [] Yes [x] No Loose bowel movements. If yes, how frequently and how long [] Yes [x] No Loss of height [x] Yes [] No History of kidney stones? If yes, when and how many episodes? [] Yes [x] No Kidney or liver problems? If yes, what kind and how long? Average time spent outside in direct sun a day [] 0-5 min [] 5-10 min [] 11-15 min [] 16-20 min [x] 21-25 min [] 26-30 min [] >30 min For women: End of menstrual cycle 28 due to surgery Daily calcium intake: [] 0-100 mg [] 101-200 mg [] 201-300 mg [] 301-400 mg [x] 401-500 mg from eating 2 cheese sticks daily, yogurt twice a week [] 501-600 mg [] 601-700 mg [] 701-900 mg [] 901-1100 mg [] 6253-4942 mg [] 2057-3665 mg [] Above 1500 mg Medications: Current Outpatient Medications on File Prior to Visit Medication Sig Dispense Refill ??? topiramate (Topamax) 25 mg Tablet TAKE 1 TABLET BY MOUTH TWICE DAILY 180 tablet 1 ??? meloxicam (MOBIC) 7.5 mg Tablet TAKE 1 TABLET BY MOUTH DAILY 90 tablet 1 ??? baclofen (Lioresal) 10 mg Tablet TAKE 1 TABLET BY MOUTH THREE TIMES DAILY 270 tablet 1 ??? fluticasone propionate (FLONASE) 50 mcg/actuation Moody, Suspension SHAKE LIQUID AND USE 2 SPRAYS IN EACH NOSTRIL DAILY ??? amitriptyline (Elavil) 50 mg Tablet TAKE 1 TABLET BY MOUTH EVERY EVENING 30 tablet 5 ??? rizatriptan (MAXALT) 10 mg Tablet Take 1 pill twice a day as needed. 10 pills is a 1 month supply. 10 tablet 5 ??? atorvastatin (Lipitor) 20 mg Tablet TAKE 1 TABLET BY MOUTH AT BEDTIME. ??? cyclobenzaprine (Flexeril) 5 mg Tablet TK 1 T PO TID PRF MUSCLE SPASM ??? omeprazole (PRILOSEC) 40 mg Capsule, Delayed Release(E.C.) Take 40 mg by mouth daily. 0 ??? magnesium 250 mg Tablet Take 1 tablet by mouth 2 times daily. ??? calcium carbonate/vitamin D3 (CALCIUM + D ORAL) Take 1 tablet by mouth daily. ??? hydrOXYzine (ATARAX) 25 mg Tablet Take 1 tablet by mouth 2 times daily as needed (dizziness). 30 tablet 0 ??? cholecalciferol, Vitamin D3, 50,000 unit Capsule Take 1 capsule by mouth once a week. 8 capsule0 ??? albuterol (PROAIR HFA) 90 mcg/actuation HFA Aerosol Inhaler INHALE 2 PUFFS INTO THE LUNGS DAILYAS NEEDED FOR WHEEZING, USE WITH SPACER. 8.5 g 5 ??? multivitamin (THERAGRAN) Tablet Take 1 tablet by mouth daily. ??? raloxifene (EVISTA) 60 mg tablet Take 60 mg by mouth daily. ??? valACYclovir (VALTREX) 500 mg tablet Take 500 mg by mouth daily. No current facility-administered medications on file prior to visit. [] Yes [x] No Glucocorticoid dose. When first prescribed? [] Yes [x] No Cyclosporine dose. When first prescribed? [] Yes [x] No Phenobarbital and phenytoin. When first prescribed? [] Yes [x] No Rosiglitazone, pioglitazone. When first prescribed? [] Yes [x] No PPI. When first prescribed? [] Yes [x] No SSRI. When first prescribed? [] Yes [x] No Thiaizdes, loop diuretics. When first prescribed? [x] Yes [] No Estrogens, testosterone. When first prescribed? [] Yes [x] No Calcitonin. When first prescribed? [] Yes [x] No Aromatase inhibitors (breast CA). When first prescribed? [] Yes [x] No Androgen deprivation therapy (prostate CA). When first prescribed? [] Yes [x] No Alendronate, risedronate, ibandronate. When first prescribed? PMH: Patient Active Problem List Diagnosis Code ??? Acute retinal necrosis of left eye H30.132 ??? Transient visual disturbance, right H53.9 ??? Afferent pupillary defect, left eye H21.569 ??? S/P hysterectomy Z90.710 ??? 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 Ortiz) M24.342 ??? H/O cocaine abuse F14.11 ??? Chronic pain of both knees M25.561, M25.562, G89.29 ??? Hearing loss, neural, unilateral H90.5 ??? Osteoporosis M81.0 ??? 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 Trigger little finger of left hand M65.352 ??? Endometriosis N80.9 ??? 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 Equinus contracture of ankle M24.573 ??? Calculus of kidney N20.0 ??? Gallstone K80.20 ??? Gastroesophageal reflux disease K21.9 ??? History of endometriosis Z87.42 ??? Elevated cholesterol E78.00 ??? Obstructive sleep apnea syndrome G47.33 ??? Pericardial effusion I31.3 ??? Postnasal drip R09.82 ??? Vaginal bleeding N93.9 ??? Cerebral palsy G80.9 ??? Migraine G43.909 ??? Herpes B00.9 ??? Elevated LFTs R79.89 Allergy: Allergies Allergen Reactions ??? Allergenic Extracts Shortness Of Breath Pollen and dust Smoke--wheezing, water eyes ??? Bactrim [Sulfamethoxazole-Trimethoprim] seizure ??? Diflucan [Fluconazole] Unknown reaction Family History Problem Relation Age of Onset ??? Alcohol Use Disorder Other ??? Myocardial Infarction Father ??? Breast Cancer Other aunt x 2 ??? Liver Cancer Other uncle ??? Emphysema Mother ??? Thyroid Disease Mother ??? Breast Cancer Mother ??? Stroke Other grandmother, s/p CEA ??? Stroke Other aunt Social History Socioeconomic History ??? Marital status: Spouse name: Not on file ??? Number of children: Not on file ??? Years of education: Not on file ??? Highest education level: Not on file Occupational History ??? Occupation: Disabled Tobacco Use ??? Smoking status: Former Smoker Types: Cigarettes Quit date: 04/13/2007 Years since quittin.9 ??? Smokeless tobacco: Never Used Vaping Use ??? Vaping Use: Never used Substance and Sexual Activity ??? Alcohol use: No ??? Drug use: No ??? Sexual activity: Not on file Comment: deferred Other Topics Concern ??? Not on file Social History Narrative Single, two children. Social Determinants of Health Financial Resource Strain: ??? Difficulty of Paying Living Expenses: Not on file Food Insecurity: ??? Worried About Running Out of Food in the Last Year: Not on file ??? Ran Out of Food in the Last Year: Not on file Transportation Needs: ??? Lack of Transportation (Medical): Not on file ??? Lack of Transportation (Non-Medical): Not on file Physical Activity: ??? Days of Exercise per Week: Not on file ??? Minutes of Exercise per Session: Not on file Housing Stability: ??? Unable to Pay for Housing in the Last Year: Not on file ??? Number of Places Lived in the Last Year: Not on file ??? Unstable Housing in the Last Year: Not on file Physical Examination: Appearance: well hydrated, well nourished, oriented x 3, in nad. Labs 04/2017 25-D 26, TSH 1.86 07/2012 CBC and Chem 7 in good range. Assessment and Plan 1. Osteoporosis: Mrs Yuli Romero has severe osteoporosis due to early surgical menopause, low Ca intake and kidney stones. Topiramate is know to increase kidney stones. A. As patient's Ca intake is 400 mg from food, and will get 24h urine kidney stone profile to see what can be done to decrease repeat risk. B. Patient also doesn't have Vitamin D done; goal is 30 ng/ml and above. Takes 1100U a day. Will check 25, Vit D, PTH now. C. Will order BMD by DXA 05/2022 D. If 25 Vit D, PTH and 24h urine Ca at good range will discuss future treatment with either zolendronic acid, alendronate 70 mg Q week, risedronate 35 mg Q week, teriparatide 20 mcg SC daily, denosumab 60 mg SQ q 6 month. E. I will schedule patient for outpatient visit at 8 weeks. Thank you for allowing me to participate in the care of this very pleasant patient. I spend 60min in chart review of DXA, labs, sent notes, discussing osteoporosis and writing my note. Sincerely, Lizzie Silvestre MD Professor documented in this encounter Plan of Treatment Not on file documented as of this encounter Visit Diagnoses Diagnosis Osteoporosis, unspecified osteoporosis type, unspecified pathological fracture presence documented in this encounter Care Teams Mobile Health Vehicle Operator Relationship Specialty Start Date End Date Laura Hidalgo, MANUFACTURING ENGINEERING PROFESSOR [address] [place] [address] PCP - General Internal Medicine 08/16/16 documented as of this encounter
--- OUTSIDE RECORDS SUMMARY | 2023-12-27 01:03 | XMS_ITS | Encounter Summary ---
Author Organization [facility] [place] [address] Care Team Providers Care Chemist Name Role Phone Laura Hidalgo APRN Primary Care Provider [phone] Reason for Visit * Reason Comments Medication Refill Encounter Details Date Type Department Care Team (Late st Contact Info) Description 08/17/2020 [place] [phone] Julio Welsh MD [facility] [place] [address] Social History Tobacco Use Types Packs/Day Years [...] Telephone Encounter - Jeannie Tesfaye RN - 08/18/2020 4:20 PM EDT surescript for Topiramate Last appt 10/2019 FUV due 10/2020 documented in this encounter Plan of Treatment Not on file documented as of this encounter Visit Diagnoses Not on filedocumented in this encounter Care Teams Chemist Relationship Specialty Start Date End Date Laura Hidalgo APRN [address] [place] [address] PCP - General Internal Medicine 08/16/16 documented as of this encounter
--- OUTSIDE RECORDS SUMMARY | 2023-12-27 01:03 | XMS_ITS | Encounter Summary ---
Author Organization [facility] [place] [address] Care Team Providers Care Mid Teacher Name Role Phone Laura Hidalgo APRN Primary Care Provider [phone] Reason for Visit * Reason Comments Medication Refill Encounter Details Date Type Department Care Team (Late Contact Info) Description 04/19/2021 [place] [address] Julio Welsh MD [facility] [place] [address] Social History Tobacco Use Types Packs/Day Years [...] on filedocumented in this encounter Care Teams Mid Teacher Relationship Specialty Start Date End Date Laura Hidalgo APRN [address] [place] [address] PCP - General Internal Medicine 08/16/16 documented as of this encounter
--- OUTSIDE RECORDS SUMMARY | 2023-12-27 01:03 | XMS_ITS | Encounter Summary ---
Author Organization [facility] [place] [address] Care Team Providers Care Auto Radiator Mechanic Name Role Phone Laura Hidalgo APRN Primary Care Provider [phone] Reason for Visit * Reason Comments Medication Refill Encounter Details Date Type Department Care Team (Late st Contact Info) Description 04/05/2021 [place] [id number] Julio Welsh MD [facility] [place] [address] Social History Tobacco Use Types Packs/Day Years [...] encounter Miscellaneous Notes * Telephone Encounter - Milena Dubon CMA - 04/06/2021 9:28 AM EDT Surescript request for : topiramate Last rx: 02/10/21 Quantity: 180 Refills:1 Last appt: 12/18/20 Next appt: Due in Jun 2021 documented in this encounter Plan of Treatment Not on file documented as of this encounter Visit Diagnoses Not on filedocumented in this encounter Care Teams Auto Radiator Mechanic Relationship Specialty Start Date End Date Laura Hidalgo APRN [address] [place] [address] PCP - General Internal Medicine 08/16/16 documented as of this encounter
--- OUTSIDE RECORDS SUMMARY | 2023-12-27 01:03 | XMS_ITS | Encounter Summary ---
Author Organization [facility] [place] [address] Care Team Providers Care Chair Lift Operator Name Role Phone Laura Hidalgo APRN Primary Care Provider [phone] Encounter Details Date Type Department Care Team (Late st Contact Info) Description 10/17/2018 4:30 PM EDT Office [place] [phone] Julio Welsh MD [facility] [place] [address] Intractable migraine with aura without status migrainosus Social History Tobacco Use Types Packs/Day Years [...] Sign Reading Time Taken Comments Blood Pressure 114/72 10/17/2018 4:10 PM EDT Pulse 85 10/17/2018 4:10 PM EDT Temperature - - Respiratory Rate - - Oxygen Saturation - - Inhaled Oxygen Concentration - - Weight 96.2 kg (212 lb) 10/17/2018 4:10 PM EDT R eported Height 147.3 cm (4' 10) 10/17/2018 4:10 PM EDT Reported Body Mass Index 44.31 10/17/2018 4:10 PM EDT documented in this encounter Patient Instructions * Patient Instructions* Julio Welsh MD - 10/17/2018 4:30 PM EDT I think you are doing reasonably well. Your migraines appear to be under control. I would do nothing different in that regard. I think your vision is basically stable and the changes you are noticing are part of normal aging Main not think there is a new problem with the eye. You can try to use regular ecfy-xop-kqwsnlk eyedrops to keep them moist. Please stay on the Valtrex. If the physical therapist think you need to splint and cannot get it paid for please let me know and I will make special arrangements. Ask the physical therapists what they think you really need I would like to see you back in 12 months or sooner if necessary. Julio Welsh MD [place] [address] Pager: [phone], #[phone] Email: [email or web address] documented in this encounter Progress Notes * Julio Welsh MD - 10/17/2018 4:30 PM EDT Neurology clinic note Chief Complaint: Headaches, stroke, and hemiparesis. History: The patient is seen in followup today. As noted earlier, she had loss of [...] equivalent. I spoke with her neurologist in [place] Dr. Thomson whom I know well. CT scan of the head was unremarkable. Those symptoms are not resolved and have not recurred. Interval history: As of 2019 the patient is doing quite well. He is having rare migrainous headaches. She has not had any major visual disturbances or vertigo. He continues to have leg pain. At present she is using a brace on the left. Apparently Medicaid would not pay for a brace for her right knee. She is receiving physical therapy and they have not recommended one. Past medical history: Patient Active Problem List [...] with son. On disability Physical Exam: BP 114/72 (BP Location (NBP): Left arm, Patient Position: Sitting, BP Cuff Sizes: Large Adult (32-43 cm)) Pulse 85 Ht 147.3 cm (4' 10) Comment: Reported Wt 96.2 kg (212 lb) Comment: Reported BMI 44.31 kg/m?? Head, eyes, ears, nose and throat were normal. There was no significant tenderness today. The tympanic membranes were clear at earlier [...] has an AFO splint on the left Medications: Current Outpatient Prescriptions Medication Sig Dispense Refill ??? omeprazole (PRILOSEC) 40 mg Capsule, Delayed Release(E.C.) Take 40 mg by mouth daily. 0 ??? meloxicam (MOBIC) 7.5 mg Tablet take 1 tablet by mouth once daily 30 tablet 5 ??? amitriptyline (ELAVIL) 50 mg Tablet take 1 tablet by mouth every evening 30 tablet 5 ??? magnesium 250 mg Tablet Take 1 tablet by mouth 2 times daily. ??? calcium carbonate/vitamin D3 (CALCIUM + D ORAL) Take 1 tablet by mouth daily. ??? ranitidine (ZANTAC) 150 mg Tablet take 1 tablet by mouth twice a day 1 ??? topiramate (TOPAMAX) 25 mg Tablet Take 1 tablet by mouth 2 times daily. 120 tablet 5 ??? hydrOXYzine (ATARAX) 25 mg Tablet Take 1 tablet by mouth 2 times daily as needed (dizziness). 30 tablet 0 ??? baclofen (LIORESAL) 10 mg Tablet Take 1 tablet by mouth 3 times daily. 90 tablet 11 ??? diclofenac (VOLTAREN) 1 % Gel Apply [...] right. There is a subtle visual field deficit. Some of her problem was I believe a part of her migraine. Any big change in her vision is reason to go the emergency room, owing to the history of herpetic infection. She needs to remain on Valtrex. 4. She has sensorineural hearing loss bilaterally, and it is worse in the left ear. She is doing better with the hearing aid. This probably contributes to migrainous vertigo 5. Because of her hemiparesis and obesity, she has musculoskeletal pain that switches a lot betweendifferent joints. I advised her to continue with physical therapy, and if she needs splints that Medicaid will not pay for, I am in a position to make some special arrangements for her. Thank you for this consultation. I will see her back in 12 months or sooner as needed. Julio Welsh MD [place] [address] Pager: [phone], #[phone] Email: [email or web address] CC: Laura Thomson documented in this encounter Plan of Treatment Not on file documented as of this encounter Visit Diagnoses Diagnosis Intractable migraine with aura without status migrainosus Migraine with aura, with intractable migraine, so stated, without mention of status migrainosus documented in this encounter Care Teams Chair Lift Operator Relationship Specialty Start Date End Date Laura Hidalgo APRN [address] [place] [address] PCP - General Internal Medicine 08/16/16 documented as of this encounter
--- OUTSIDE RECORDS SUMMARY | 2023-12-27 01:03 | XMS_ITS | Encounter Summary ---
Author Organization [facility] [place] [address] Care Team Providers Care Granite Polisher Apprentice Name Role Phone Laura Hidalgo APRN Primary Care Provider [phone] Reason for Visit * Reason Onset Date Comments Medication Refill Medication Refill 09/29/2020 Encounter Details Date Type Department Care Team (Late st Contact Info) Description 09/29/2020 [place] [id number] Julio Welsh MD [facility] [address] Social History Tobacco Use Types Packs/Day Years [...] Telephone Encounter - Jeannie Tesfaye RN - 09/29/2020 1:33 PM EDT rx line request for yosix rx sent 08/24 Not received at pharmacy rx as written on 08/18/20 given verbally to pharmacist * Telephone Encounter - Jeannie Tesfaye RN - 09/29/2020 11:37 AM EDT Surescript request for : Topiramate Last rx: Quantity: Refills: From last note: Last appt: Next appt: documented in this encounter Plan of Treatment Not on file documented as of this encounter Visit Diagnoses Not on filedocumented in this encounter Care Teams Granite Polisher Apprentice Relationship Specialty Start Date End Date Laura Hidalgo APRN [address] [facility] [place] [address] PCP - General Internal Medicine 08/16/16 documented as of this encounter
--- OUTSIDE RECORDS SUMMARY | 2023-12-27 01:03 | XMS_ITS | Encounter Summary ---
Author Organization [facility] [place] [address] Care Team Providers Care Tobacco Checkout Clerk Name Role Phone Laura Hidalgo APRN Primary Care Provider [phone] Reason for Referral * High Dollar Medication (Routine) - Closed Specialty Diagnoses / Procedures Referred By Contac t Referred To Contact Med Infusion Diagnoses Osteoporosis, unspecified osteoporosis type, unspecified pathological fracture presence Procedures Zolendronic Acid (Reclast) Authorization Request Lizzie Silvestre MD [facility] [place] [address] [facility] Med Infusion [address] [place] [phone] Referral ID Status Reason Start Date Expiration Date V isits Requested Visits Authorized [id number] Closed Consult, Test & Treat 05/25/2021 05/25/2022 1 1 Encounter Details Date Type Department Care Team (Late st Contact Info) Description 05/25/2021 Orders Only [place] [address] Lizzie Silvestre MD [facility] [place] [address] Osteoporosis, unspecified osteoporosis type, unspecified [...] presence documented in this encounter Care Teams Tobacco Checkout Clerk Relationship Specialty Start Date End Date Laura Hidalgo APRN [address] [place] [address] PCP - General Internal Medicine 08/16/16 documented as of this encounter
--- OUTSIDE RECORDS SUMMARY | 2023-12-27 01:03 | XMS_ITS | Encounter Summary ---
Author Organization [facility] [place] [address] Care Team Providers Care Rn Hospice Name Role Phone Laura Hidalgo APRN Primary Care Provider [phone] Reason for Visit * Reason Onset Date Comments TeleHealth 10/19/2019 Appt 10/21 Encounter Details Date Type Department Care Team (Late st Contact Info) Description 10/19/2019 [place] [phone] Julio Welsh MD [facility] [place] [address] TeleHealth (Appt 10/21) Social History Tobacco Use Types Packs/Day Years [...] encounter Miscellaneous Notes * Telephone Encounter - Kristin Burr LNA - 10/19/2019 11:13 AM EDT Spoke with patient to review medications and allergies prior to upcoming tele- appointment scheduled with Neurology provider. documented in this encounter Plan of Treatment Not on file documented as of this encounter Visit Diagnoses Not on filedocumented in this encounter Care Teams Rn Hospice Relationship Specialty Start Date End Date Laura Hidalgo APRN [address] [place] [address] PCP - General Internal Medicine 08/16/16 documented as of this encounter
--- OUTSIDE RECORDS SUMMARY | 2023-12-27 01:03 | XMS_ITS | Encounter Summary ---
Author Organization [facility] [place] [address] Care Team Providers Care Gear Hobber Operator Name Role Phone Laura Hidalgo APRN Primary Care Provider [phone] Reason for Visit * Reason Comments Medication Refill Encounter Details Date Type Department Care Team (Late st Contact Info) Description 01/29/2018 [place] [address] Julio Welsh MD [facility] [place] [address] Social History Tobacco Use Types Packs/Day Years [...] on filedocumented in this encounter Care Teams Gear Hobber Operator Relationship Specialty Start Date End Date Laura Hidalgo APRN [address] [place] [address] PCP - General Internal Medicine 08/16/16 documented as of this encounter
--- OUTSIDE RECORDS SUMMARY | 2023-12-27 01:03 | XMS_ITS | Encounter Summary ---
Author Organization [facility] [place] [address] Care Team Providers Care Er Registrar Name Role Phone Laura Hidalgo APRN Primary Care Provider [phone] Reason for Visit * Reason Comments Medication Refill Encounter Details Date Type Department Care Team (Late st Contact Info) Description 07/06/2018 Ref[place] [address] Julio Welsh MD [facility] [place] [address] Social History Tobacco Use Types Packs/Day Years [...] on filedocumented in this encounter Care Teams Er Registrar Relationship Specialty Start Date End Date Laura Hidalgo APRN [address] [place] [address] PCP - General Internal Medicine 08/16/16 documented as of this encounter
--- OUTSIDE RECORDS SUMMARY | 2023-12-27 01:03 | XMS_ITS | Encounter Summary ---
Author Organization [facility] [place] [address] Care Team Providers Care Shoulder Puncher Name Role Phone Laura Hidalgo APRN Primary Care Provider [phone] Reason for Visit * Reason Onset Date Comments Medication Refill 01/19/2021 Encounter Details Date Type Department Care Team (Late st Contact Info) Description 01/19/2021 [place] [address] Julio Welsh MD [facility] [place] [address] Medication Refill Social History Tobacco Use Types Packs/Day Years [...] encounter Miscellaneous Notes * Telephone Encounter - Alyssa Pittman RN - 01/19/2021 9:42 AM EDT Amitriptyline 50 mg rx called in. Rx written on 12/05 was not received by the pharmacy. * Telephone Encounter - Andrew September - 01/19/2021 9:05 AM EDT Call Center / [facility] Message Prescription Refill Request Clinical Mds Rn message Provider patient sees in Clinic: Dr. Welsh Caller and relationship (if other than patient-full name): self Call back Number: [phone] Ok to leave a message: Any issues needing to be addressed prior to medication refill? (ex: dose increase, not at pharmacy): Name of Med: amitriptyline (Elavil) 50 mg Tablet Strength of Pills: 50 mg Dosing Directions:KARRIE 1 TABLET BY MOUTH EVERY EVENING 30 or 90 Day Supply: 30 Pharm[facility]: [id number] AT [address] [phone] ?? [facility] #: [id number] Last Appointment: Next Appointment: Is Patient out of Medication?: Yes and prescription needs to be resent. This agent called the pharmacy and they said they never received this in December . documented in this encounter Plan of Treatment Not on file documented as of this encounter Visit Diagnoses Not on filedocumented in this encounter Care Teams Shoulder Puncher Relationship Specialty Start Date End Date Laura Hidalgo APRN [address] [place] [address] PCP - General Internal Medicine 08/16/16 documented as of this encounter
--- OUTSIDE RECORDS SUMMARY | 2023-12-27 01:03 | XMS_ITS | Encounter Summary ---
[place] [address] Care Team Providers Care Lab Tester Name Role Phone Laura Hidalgo APRN Primary Care Provider [phone] Encounter Details Date Type Department Care Team (Late st Contact Info) Description 05/25/2021 Telephone [place] [phone] Licha Chester Social History Tobacco Use Types Packs/Day Years [...] place to sleep or slept in a skilled nursing (including now)? No 06/16/2021 Sex and Gender Information Value Date Recorded Sex Assigned at Female 12/11/2020 8:51 PM EDT Gender Identity Female 05/18/2021 7:21 PM EST Sexual Orientation Straight 05/18/2021 7: 21 PM EST documented as of this encounter Miscellaneous Notes * Telephone Encounter - Licha Chester - 05/25/2021 1:24 PM EST Patient called and she would like to do her infusion in [facility]. Please call if Patient can not. documented in this encounter Plan of Treatment Not on file documented as of this encounter Visit Diagnoses Not on filedocumented in this encounter Care Teams Lab Tester Relationship Specialty Start Date End Date Laura Hidalgo APRN [address] [facility] [place] [address] PCP - General Internal Medicine 08/16/16 documented as of this encounter
--- OUTSIDE RECORDS SUMMARY | 2023-12-27 01:03 | XMS_ITS | Encounter Summary ---
Author Organization [facility] Address [facility] [place] [address] Care Team Providers Care Firefighter Type One Name Role Phone Laura Hidalgo APRN Primary Care Provider [phone] Reason for Visit * Reason Comments Medication Refill Encounter Details Date Type Department Care Team (Late st Contact Info) Description 06/17/2021 [place] [phone] Julio Welsh MD [facility] [place] [address] Social History Tobacco Use Types Packs/Day Years [...] place to sleep or slept in a care home (including now)? No 06/16/2021 Sex and Gender Information Value Date Recorded Sex Assigned at Female 12/11/2020 8:51 PM EDT Gender Identity Female 05/18/2021 7:21 PM EST Sexual Orientation Straight 05/18/2021 7: 21 PM EST documented as of this encounter Plan of Treatment Not on file documented as of this encounter Visit Diagnoses Not on filedocumented in this encounter Care Teams Firefighter Type One Relationship Specialty Start Date End Date Laura Hidalgo APRN [address] [place] [address] PCP - General Internal Medicine 08/16/16 documented as of this encounter
--- OUTSIDE RECORDS SUMMARY | 2023-12-27 01:03 | XMS_ITS | Encounter Summary ---
Author Organization [facility] [place] [address] Care Team Providers Care Environmental Property Assessor Name Role Phone Laura Hidalgo APRN Primary Care Provider [phone] Reason for Visit * Reason Onset Date Comments Medication Refill 02/07/2019 Encounter Details Date Type Department Care Team (Late st Contact Info) Description 02/07/2019 [place] [address] Julio Welsh MD [facility] [place] [address] Social History Tobacco Use Types Packs/Day Years [...] filedocumented in this encounter Care Teams Environmental Property Assessor Relationship Specialty Start Date End Date Laura Hidalgo APRN [address] [place] [address] PCP - General Internal Medicine 08/16/16 documented as of this encounter
--- OUTSIDE RECORDS SUMMARY | 2023-12-27 01:03 | XMS_ITS | Encounter Summary ---
Author Organization [facility] [place] [address] Care Team Providers Care Third Hand Name Role Phone Laura Hidalgo APRN Primary Care Provider [phone] Reason for Visit * Reason Onset Date Comments Appointment 10/23/2020 Encounter Details Date Type Department Care Team (Late st Contact Info) Description 10/23/2020 [place] [phone] Julio Welsh MD [facility] [place] [address] Appointment Social History Tobacco Use Types Packs/Day Years [...] encounter Miscellaneous Notes * Telephone Encounter - Olinda Joyner - 10/23/2020 2:15 PM EDT Scheduling Instructions Provider: Dr Welsh Visit Type (paste SOLIS Instructions or manually enter): Return in about 1 month (around 11/22/2020) for In Clinic Appt Note: Intractable migraine Additional Info Needed: also needs to be scheduled Retroperitoneal Complete documented in this encounter Plan of Treatment Not on file documented as of this encounter Visit Diagnoses Not on filedocumented in this encounter Care Teams Third Hand Relationship Specialty Start Date End Date Laura Hidalgo APRN [address] [facility] [place] [address] PCP - General Internal Medicine 08/16/16 documented as of this encounter
--- OUTSIDE RECORDS SUMMARY | 2023-12-27 01:03 | XMS_ITS | Encounter Summary ---
Author Organization [facility] [place] [address] Care Team Providers Care Second Butler Name Role Phone Laura Hidalgo APRN Primary Care Provider [phone] Encounter Details Date Type Department Care Team (Latest Contact Info) Description 10/10/2020 10:16 PM EDT - 10/10/2020 11:59 PM EDT Hospital [place] [phone] Discharge Disposition: Home Social History Tobacco Use Types Packs/Day Years [...] PM EST documented as of this encounter Medications at Time of Discharge Medication Sig Dispensed Refills Start Date End Date atorvastatin (Lipitor) 20 mg Tablet TAKE 1 TABLET BY MOUTH AT BEDTIME. 08/17/2019 albuterol (PROAIR HFA) 90 mcg/actuation HFA Aerosol Inhaler INHALE 2 PUFFS INTO THE LUNGS DAILY NEEDED FOR WHEEZING, USE WITH SPACER. 8.5 g 5 12/02/2016 valACYclovir (VALTREX) 500 mg tablet Take 500 mg by mouth daily. 12/24/2010 raloxifene (EVISTA) 60 mg tablet Take 60 mg by mouth daily. 12/05/2023 topiramate (Topamax) 25 mg Tablet TAKE 1 TABLET BY MOUTH TWICE DAILY 180 tablet 09/29/2020 10/16/2020 baclofen (Lioresal) 10 mg Tablet TAKE 1 TABLET BY MOUTH THREE TIMES DAILY 90 tablet 1 07/30/2020 10/16/2020 meloxicam (MOBIC) 7.5 mg Tablet TAKE 1 TABLET BY MOUTH DAILY 90 tablet 1 07/22/2020 01/19/2021 amitriptyline (Elavil) 50 mg Tablet TAKE 1 TABLET BY MOUTH EVERY EVENING 30 tablet 5 06/09/2020 12/05/2020 cyclobenzaprine (Flexeril) 5 mg Tablet TK 1 T PO TID PRF MUSCLE SPASM 06/15/2019 12/31/2021 loratadine (Claritin) 10 mg Tablet TK 1 T PO D 10/15/2019 10/22/2020 triamcinolone (KENALOG) 0.1 % Cream APPLY TOPICALLY BID NEEDED FOR RASH ON LEFT NECK 07/25/2019 10/22/2020 omeprazole (PRILOSEC) 40 mg Capsule, Delayed Release(E.C.) Take 40 mg by mouth daily. 0 12/05/2017 07/23/2021 magnesium 250 mg Tablet Take 1 tablet by mouth 2 times daily. 12/31/2021 calcium carbonate/vitamin D3 (CALCIUM + D ORAL) Take 1 tablet by mouth daily. 06/09/2021 ranitidine (ZANTAC) 150 mg Tablet take 1 tablet by mouth twice a day 1 10/27/2017 10/22/2020 hydrOXYzine (ATARAX) 25 mg Tablet Take 1 tablet by mouth 2 times daily as needed (dizziness). 30 tablet 11/07/2017 06/16/2021 diclofenac (VOLTAREN) 1 % Gel Apply 2 g topically 2 times daily as needed. 100 g 06/16/2017 10/22/2020 cholecalciferol, Vitamin D3, 50,000 unit CapsuleIndications:Vit phipps D deficiency Take 1 capsule by mouth once a week. 8 capsule 05/03/2017 06/09/2021 multivitamin (THERAGRAN) Tablet Take 1 tablet by mouth daily. 06/09/2021 naproxen sodium (ANAPROX) 550 mg Tablet Take 1 tablet by mouth 2 times daily as needed. 30 tablet 11 08/16/2016 10/22/2020 documented as of this encounter Plan of Treatment Not on file documented as of this encounter Visit Diagnoses Not on filedocumented in this encounter Care Teams Second Butler Relationship Specialty Start Date End Date Laura Hidalgo APRN [address] [place] [address] PCP - General Internal Medicine 08/16/16 documented as of this encounter
--- OUTSIDE RECORDS SUMMARY | 2023-12-27 01:03 | XMS_ITS | Encounter Summary ---
Author Organization [facility] [place] [address] Care Team Providers Care Photogrammetry Airplane Pilot Name Role Phone Laura Hidalgo APRN Primary Care Provider [phone] Reason for Visit * Reason Comments Skin Check Follow-up Encounter Details Date Type Department Care Team (Late st Contact Info) Description 06/11/2019 3:00 PM EST Office Visit Dermatology at [facility] [address] [place] [address] Kiet Zeng MD [facility] [place] [address] Benign nevus; Dermatofibroma; SK (seborrheic keratosis); Solar lentigo; Olsen angioma Social History Tobacco Use Types Packs/Day Years [...] as of this encounter Progress Notes * Kiet Zeng - 06/11/2019 3:00 PM EST Images from the original note were not included. DERMATOLOGY - ESTABLISHED PATIENT FOLLOW-UP Date of service: 06/11/2019 Yuli Romero : 1975, 44 y.o. Chief Complaint: Chief Complaint Patient presents with ??? Skin Check ??? Follow-up HPI: Yuli Romero is a 44 y.o. female last seen by Jennifer Matthews PA-C on 04/13/2017. Ms. Romero returns today for full skin exam with a spot on the right leg that was noted at the lastvisit (DF) and there has been no changes. Patient denies any itching, pain, bleeding or burning. She has not noted any other new, growing, changing, bleeding, painful or otherwise symptomatic moles or other lesions. She has not noted any other changes in any preexisting lesions. Skin History: None ?? Family History: Melanoma: none NMSC: Grandfather ?? Social History: Relevant occupational/recreational/travel/animal exposures: disability Medications: Current Outpatient Medications Medication Sig Dispense Refill ??? baclofen (LIORESAL) 10 mg Tablet Take 1 tablet by mouth 3 times daily. 90 tablet 5 ??? meloxicam (MOBIC) 7.5 mg Tablet Take 1 tablet by mouth daily. 30 tablet 5 ??? amitriptyline (ELAVIL) 50 mg Tablet take 1 tablet by mouth every evening 30 tablet 5 ??? topiramate (TOPAMAX) 25 [...] No current facility-administered medications for this visit. Allergies: Allergies Allergen Reactions ??? Allergenic Extracts Shortness Of Breath Pollen and dust Smoke--wheezing, water eyes ??? Bactrim [Sulfamethoxazole-Trimethoprim] seizure ??? Diflucan [Fluconazole] Unknown reaction Review of Systems: - General: Feels well. - Skin: No other skin concerns. Examination: - Constitutional: Patient was alert, well-appearing and in no noticeable distress. - Skin: Skin examination of the scalp, face, ears, neck, back, chest, abdomen, right and left upperextremities, right and left lower extremities, hands, feet, and buttocks was normal with the exception of the findings listed below. Genitalia not examined. - A female nurse was present and on standby during my examination. Diagnosis/Skin findings/Assessment/Plan: # Benign Appearing Nevi: On the trunk and extremities multiple, 0.3-0.5cm, medium-brown, evenly-pigmented macules and papules. - Reassurance, discussed importance of ABCDE's and monthly self exams # Dermatofibroma (DF) - right calf. - Discussed benign nature of lesion and provided reassurance. - No treatment necessary at this time. Can be removed if overly bothersome/painful. Pt declines at this time. #. Seborrheic Keratosis - trunk and extremities - Etiology discussed - Patient reassured lesions are benign in nature - Explained that these are hereditary and adult-acquired. - Can develop anywhere on the body except for palms of hands and soles of feet - discussed cosmetic options. - Advised patient to call if areas become inflamed or irritated. ?? #. Lentigines - Face, trunk, and extremities - Discussed benign nature of lesion and provided reassurance - No treatment necessary at this time ?? - Observe skin for change in color, size or character. Call if such occur ?? #. Olsen Angioma(s) - Discussed benign nature of lesion and provided reassurance. ?? - No treatment necessary at this time. ? RTC: 2 year full skin exam Note initiated by Coby Contreras LPN. I, Coby Contreras LPN, have performed the documentation for this encounter in the presence of and acting as a scribe for Kiet Zeng MD. I performed the services which were documented by the scribe, and I agree with the accuracy of the documentation in this encounter. Kiet Zeng MD Reviewed and signed by: Kiet Zeng MD Resident in Dermatology [facility] Patient seen and evaluated with staff athletic training internship: Sasha Kirby MD Section of Dermatology [facility] * Sasha Kirby MD - 06/11/2019 3:00 PM EST I directly supervised Dr. Zeng in the care of this patient. I saw and evaluated this patient with Dr. Zeng. He presented the history and physical exam details to me, then we saw the patient together and I confirmed these findings. I agree with details as written. My physical examination confirms Dr. Zeng's findings. The assessment and plan were formulated in discussion with me at the time of visit and I agree withthem as documented. SASHA KIRBY MD FAAD Staff Physician documented in this encounter Plan of Treatment Not on file documented as of this encounter Visit Diagnoses Diagnosis Benign nevus Benign neoplasm of skin, site unspecified Dermatofibroma Benign neoplasm of skin, site unspecified SK (seborrheic keratosis) Other seborrheic keratosis Solar lentigo Other dyschromia Olsen angioma Nevus, non-neoplastic documented in this encounter Care Teams Photogrammetry Airplane Pilot Relationship Specialty Start Date End Date Laura Hidalgo, HOME SECURITY PROFESSIONAL [address] [place] [address] PCP - General Internal Medicine 08/16/16 documented as of this encounter
--- OUTSIDE RECORDS SUMMARY | 2023-12-27 01:03 | XMS_ITS | Encounter Summary ---
Author Organization [facility] [place] [address] Care Team Providers Care Electric Tape Slitter Name Role Phone Laura Hidalgo APRN Primary Care Provider [phone] Encounter Details Date Type Department Care Team (Late st Contact Info) Description 10/24/2020 [place] [address] Julio Welsh MD [facility] [place] [place] [address] Social History Tobacco Use Types Packs/Day Years [...] Telephone Encounter - Alyssa Pittman RN - 10/24/2020 8:50 AM EDT Spoke to patient. Made aware that per Dr. Welsh: she needs to drink more fluid. ??Her urinalysissuggests she is dry. ??I think she is not drinking very much because she is having urinary incontinence and I am working that up as a separate problem. Patient in agreement and verbalized understanding of the plan. documented in this encounter Plan of Treatment Not on file documented as of this encounter Visit Diagnoses Not on filedocumented in this encounter Care Teams Electric Tape Slitter Relationship Specialty Start Date End Date Laura Hidalgo APRN [address] [place] [address] PCP - General Internal Medicine 08/16/16 documented as of this encounter
--- OUTSIDE RECORDS SUMMARY | 2023-12-27 01:03 | XMS_ITS | Encounter Summary ---
Author Organization [facility] [place] [address] Care Team Providers Care Roller Mechanic Name Role Phone Laura Hidalgo APRN Primary Care Provider [phone] Reason for Visit * Reason Comments Medication Refill Encounter Details Date Type Department Care Team (Late st Contact Info) Description 12/30/2017 [place] [address] Julio Welsh MD [facility] [place] [address] Social History Tobacco Use Types Packs/Day Years [...] on filedocumented in this encounter Care Teams Roller Mechanic Relationship Specialty Start Date End Date Laura Hidalgo APRN [address] [place] [address] PCP - General Internal Medicine 08/16/16 documented as of this encounter
--- OUTSIDE RECORDS SUMMARY | 2023-12-27 01:03 | XMS_ITS | Encounter Summary ---
[place] [address] Care Team Providers Care Senior Infrastructure Engineer Name Role Phone Laura Hidalgo APRN Primary Care Provider [phone] Reason for Visit * Reason Onset Date Comments Prior Authorization 07/02/2021 Encounter Details Date Type Department Care Team (Late st Contact Info) Description 07/02/2021 Telephone [place] [address] Nathalie Plascencia Prior Authorization Social History Tobacco Use Types Packs/Day Years [...] money to buy more. Never true 06/16/19 Within the past 12 months, t he [...] slept in a half-way (including now)? No 06/16/2021 Sex and Gender Information Value Date Recorded Sex Assigned at Female 12/11/2020 8:51 PM EDT Gender Identity Female 05/18/2021 7:21 PM EST Sexual Orientation Straight 05/18/2021 7: 21 PM EST documented as of this encounter Miscellaneous Notes * Telephone Encounter - Nathalie Plascencia - 07/03/2021 7:44 AM EST Images from the original note were not included. [phone] * Telephone Encounter - Nathalie Plascencia - 07/02/2021 1:20 PM EST Medication Prior Authorization [employer] Medication name/dose/directions: Janiya ([facility]) Rationale for request: Osteoporosis Health plan: 07/02/21 (Fax) Authorizing field service representative name: Jeannie Sent to health plan on: 07/02/21 Health plan decision: Quantity approved: Authorization number: [id number] Start date: End date: documented in this encounter Plan of Treatment Not on file documented as of this encounter Visit Diagnoses Not on filedocumented in this encounter Care Teams Senior Infrastructure Engineer Relationship Specialty Start Date End Date Laura Hidalgo, GUNNER [address] [place] [address] PCP - General Internal Medicine 08/16/16 documented as of this encounter
--- OUTSIDE RECORDS SUMMARY | 2023-12-27 01:03 | XMS_ITS | Encounter Summary ---
[place] [address] Care Team Providers Care User Support Specialist Name Role Phone Laura Hidalgo APRN Primary Care Provider [phone] Encounter Details Date Type Department Care Team (Late st Contact Info) Description 06/25/2021 Telephone [place] [phone] Licha Chester Social History Tobacco Use Types [...] place to sleep or slept in a longterm (including now)? No 06/16/2021 Sex and Gender Information Value Date Recorded Sex Assigned at Female 12/11/2020 8:51 PM EDT Gender Identity Female 05/18/2021 7:21 PM EST Sexual Orientation Straight 05/18/2021 7: 21 PM EST documented as of this encounter Miscellaneous Notes * Telephone Encounter - Antoine Crabtree RN - 07/08/2021 1:29 PM EST This is going to be done at the location in [facility]. The location should be: [facility] per their office. We should also try to include Yumiko Fisher Mitchell as a recipient as well if possible. * Telephone Encounter - Antoine Crabtree RN - 07/08/2021 11:51 AM EST Order prepped and delivered to Dr Silvestre' mailbox to sign. * Telephone Encounter - Licha Chester - 06/25/2021 9:23 AM EST Patient is calling in regards to her referral for reclast at [facility] in [facility]. Can you please get referral to them and call patient when it's all set. documented in this encounter Plan of Treatment Not on file documented as of this encounter Visit Diagnoses Not on filedocumented in this encounter Care Teams User Support Specialist Relationship Specialty Start Date End Date Laura Hidalgo APRN [address] [place] [address] PCP - General Internal Medicine 08/16/16 documented as of this encounter
--- OUTSIDE RECORDS SUMMARY | 2023-12-27 01:03 | XMS_ITS | Encounter Summary ---
Author Organization [facility] [place] [address] Care Team Providers Care X Ray Electronics Wiring Technician Name Role Phone Laura Hidalgo APRN Primary Care Provider [phone] Reason for Visit * Reason Onset Date Comments Medication Refill 10/16/2020 Encounter Details Date Type Department Care Team (Late st Contact Info) Description 10/16/2020 [place] [phone] Julio Welsh MD [facility] [place] [address] Social History Tobacco Use Types Packs/Day Years [...] Telephone Encounter - Jeannie Tesfaye RN - 10/16/2020 8:05 PM EDT rx line request for renewal of baclofen and surescript for topiramate FUV 10/22/20 documented in this encounter Plan of Treatment Not on file documented as of this encounter Visit Diagnoses Not on filedocumented in this encounter Care Teams X [employer] Electronics Wiring Technician Relationship Specialty Start Date End Date Laura Hidalgo APRN [address] [place] [address] PCP - General Internal Medicine 08/16/16 documented as of this encounter
--- OUTSIDE RECORDS SUMMARY | 2023-12-27 01:03 | XMS_ITS | Encounter Summary ---
Author Organization [facility] [place] [address] Care Team Providers Care Second Grade Teacher Name Role Phone Laura Hidalgo APRN Primary Care Provider [phone] Reason for Visit * Reason Onset Date Comments Medication Refill 07/12/2019 Encounter Details Date Type Department Care Team (Late st Contact Info) Description 07/12/2019 [place] [address] Julio Welsh MD [facility] [address] Social History Tobacco Use Types Packs/Day Years [...] filedocumented in this encounter Care Teams Second Grade Teacher Relationship Specialty Start Date End Date Laura Hidalgo APRN [address] [place] [address] PCP - General Internal Medicine 08/16/16 documented as of this encounter
--- OUTSIDE RECORDS SUMMARY | 2023-12-27 01:03 | XMS_ITS | Encounter Summary ---
Author Organization [facility] [place] [address] Care Team Providers Care Court Manager Name Role Phone Laura Hidalgo APRN Primary Care Provider [phone] Reason for Visit * Reason Comments Medication Refill Encounter Details Date Type Department Care Team (Late st Contact Info) Description 12/27/2019 [place] [address] Julio Welsh MD [facility] [place] [address] Social History Tobacco Use Types Packs/Day Years [...] on filedocumented in this encounter Care Teams Court Manager Relationship Specialty Start Date End Date Laura Hidalgo APRN [address] [place] [address] PCP - General Internal Medicine 08/16/16 documented as of this encounter
--- OUTSIDE RECORDS SUMMARY | 2023-12-27 01:03 | XMS_ITS | Encounter Summary ---
Author Organization [facility] [place] [address] Care Team Providers Care Formstone Fitter Name Role Phone Laura Hidalgo APRN Primary Care Provider [phone] Reason for Visit * Reason Comments Medication Refill Encounter Details Date Type Department Care Team (Late st Contact Info) Description 07/30/2020 [place] [phone] Julio Welsh MD [facility] [place] [address] Social History Tobacco Use Types Packs/Day Years [...] Telephone Encounter - Jeannie Tesfaye RN - 07/30/2020 3:47 PM EST surescript for baclofen - last rx 02/2020 Last appt 10/2019 = msg to paralegal legal secretary to schedule FUV for October 2020 documented in this encounter Plan of Treatment Not on file documented as of this encounter Visit Diagnoses Not on filedocumented in this encounter Care Teams Formstone Fitter Relationship Specialty Start Date End Date Laura Hidalgo APRN [address] [place] [address] PCP - General Internal Medicine 08/16/16 documented as of this encounter
--- OUTSIDE RECORDS SUMMARY | 2023-12-27 01:03 | XMS_ITS | Encounter Summary ---
Author Organization [facility] [place] [address] Care Team Providers Care Cloth Layer Name Role Phone Laura Hidalgo APRN Primary Care Provider [phone] Reason for Visit * Reason Onset Date Comments Medication Refill 07/23/2021 Pt changing ph armacies Encounter Details Date Type Department Care Team (Late st Contact Info) Description 07/23/2021 [place] [phone] Julio Welsh MD [facility] [address] Social History Tobacco Use Types Packs/Day Years [...] place to sleep or slept in a long term (including now)? No 06/16/2021 Sex and Gender Information Value Date Recorded Sex Assigned at Female 12/11/2020 8:51 PM EDT Gender Identity Female 05/18/2021 7:21 PM EST Sexual Orientation Straight 05/18/2021 7: 21 PM EST documented as of this encounter Miscellaneous Notes * Telephone Encounter - Apolinar Olivo Phillip - 07/23/2021 11:10 AM EST Call Center / [place] Message Prescription Refill Request Clinical [place] message Provider patient sees in Clinic: Julio Welsh Caller and relationship (if other than patient-full name): Trevon Roldan Call back Number: [phone] Ok to leave a message: yes Any issues needing to be addressed prior to medication refill? (ex: dose increase, not at pharmacy): Pt is changing pharmacies, [facility] pharmacy currently does not have a pharmacist and is closed, [facility] Name of Med: 1. amitriptyline (Elavil) 2. topiramate (Topamax) 3. baclofen (Lioresal) 4.meloxicam (MOBIC) 5.rizatriptan (MAXALT) Strength of Pills: 1. 50 mg Tablet 2. 25 mg Tablet 3. 10 mg Tablet 4. 7.5 mg Tablet 5. 10 mg Tablet Dosing Directions: 1. Take 1 pill nightly 2. TAKE 1 TABLET BY MOUTH TWICE DAILY 3. TAKE 1 TABLET BY MOUTH THREE TIMES DAILY 4. TAKE 1 TABLET BY MOUTH DAILY 5. Take 1 pill twice a day as needed. 10 pills is a 1 month supply. How Patient is Currently Taking Medication: 1. 1 tablet nightly 2. 1 tablet 2x daily 3. 1 tablet 3x daily 4. 1 tablet daily 5. 1 tablet 2x daily as needed no more than 10 tablets monthly 30 or 90 Day Supply: 1. 30 2. 90 3. 90 4. 90 5. 30 Pharmacy: [facility] Last Appointment: 06/16/2021 Next Appointment: FUV due 12/2021 Is Patient out of Medication?: Pt stated she has been out of the amitriptyline for about a week, hoping this can be expedited today documented in this encounter Plan of Treatment Not on file documented as of this encounter Visit Diagnoses Not on filedocumented in this encounter Care Teams Cloth Layer Relationship Specialty Start Date End Date Laura Hidalgo APRN [address] [place] [address] PCP - General Internal Medicine 08/16/16 documented as of this encounter
--- OUTSIDE RECORDS SUMMARY | 2023-12-27 01:03 | XMS_ITS | Encounter Summary ---
Author Organization [facility] [place] [address] Care Team Providers Care Auditor Internal Name Role Phone Laura Hidalgo APRN Primary Care Provider [phone] Reason for Visit * Reason Comments Medication Refill Encounter Details Date Type Department Care Team (Late st Contact Info) Description 01/07/2019 Ref[place] [address] Julio Welsh MD [facility] [place] [address] Social History Tobacco Use Types Packs/Day Years [...] Telephone Encounter - Jeannie Tesfaye RN - 01/08/2019 12:29 PM EDT Surescript request for amitriptyline Last rx:07/06/18 FUV: 10/18/19 documented in this encounter Plan of Treatment Not on file documented as of this encounter Visit Diagnoses Not on filedocumented in this encounter Care Teams Auditor Internal Relationship Specialty Start Date End Date Laura Hidalgo APRN [address] [place] [address] PCP - General Internal Medicine 08/16/16 documented as of this encounter
--- OUTSIDE RECORDS SUMMARY | 2023-12-27 01:03 | XMS_ITS | Encounter Summary ---
Author Organization [facility] [place] [address] Care Team Providers Care Classifier Operator Name Role Phone Laura Hidalgo APRN Primary Care Provider [phone] Reason for Visit * Reason Comments Medication Refill Encounter Details Date Type Department Care Team (Late st Contact Info) Description 01/19/2021 [place] [phone] Julio Welsh MD [facility] [place] [place] [address] Social History Tobacco Use Types Packs/Day Years [...] Miscellaneous Notes * Telephone Encounter - Jeannie Tsefaye RN - 01/19/2021 12:56 PM EDT Last appt 12/19/20 FUV due for 06/27 not yet sched surescript for meloxicam last rx 07/22/20 3 mo and 1 RF documented in this encounter Plan of Treatment Not on file documented as of this encounter Visit Diagnoses Not on filedocumented in this encounter Care Teams Classifier Operator Relationship Specialty Start Date End Date Laura Hidalgo APRN [address] [place] [address] PCP - General Internal Medicine 08/16/16 documented as of this encounter
--- OUTSIDE RECORDS SUMMARY | 2023-12-27 01:03 | XMS_ITS | Encounter Summary ---
Author Organization [facility] [place] [address] Care Team Providers Care Life Insurance Sales Agent Name Role Phone Laura Hidalgo APRN Primary Care Provider [phone] Reason for Visit * Reason Onset Date Comments Medication Refill 03/05/2019 Encounter Details Date Type Department Care Team (Late st Contact Info) Description 03/05/2019 [place] [address] Julio Welsh MD [facility] [address] Social History Tobacco Use Types Packs/Day Years [...] on filedocumented in this encounter Care Teams Life Insurance Sales Agent Relationship Specialty Start Date End Date Laura Hidalgo APRN [address] [place] [address] PCP - General Internal Medicine 08/16/16 documented as of this encounter
--- OUTSIDE RECORDS SUMMARY | 2023-12-27 01:03 | XMS_ITS | Encounter Summary ---
Author Organization [facility] [place] [address] Care Team Providers Care Four Slide Operator Name Role Phone Laura Hidalgo APRN Primary Care Provider [phone] Reason for Visit * Reason Comments Medication Refill Encounter Details Date Type Department Care Team (Late st Contact Info) Description 02/10/2020 [place] [address] Julio Welsh MD [facility] [place] [address] Social History Tobacco Use Types Packs/Day Years [...] on filedocumented in this encounter Care Teams Four Slide Operator Relationship Specialty Start Date End Date Laura Hidalgo APRN [address] [place] [address] PCP - General Internal Medicine 08/16/16 documented as of this encounter
--- OUTSIDE RECORDS SUMMARY | 2023-12-27 01:03 | XMS_ITS | Encounter Summary ---
Author Organization [facility] [place] [address] Care Team Providers Care Kiln Door Builder Name Role Phone Laura Hidalgo APRN Primary Care Provider [phone] Reason for Visit * Reason Onset Date Comments TeleHealth 06/09/2021 Encounter Details Date Type Department Care Team (Late st Contact Info) Description 06/09/2021 Telephone [place] [phone] Julio Welsh MD [facility] [place] [address] TeleHealth Social History Tobacco Use Types Packs/Day Years [...] Telephone Encounter - Litzy Choudhary RN - 06/09/2021 2:15 PM EST Spoke to this patient by phone to review their medications and allergies prior to their upcoming tele-appointment with the Neurology provider. Medications and allergies reviewed, verified and updatedas needed. documented in this encounter Plan of Treatment Not on file documented as of this encounter Visit Diagnoses Not on filedocumented in this encounter Care Teams Kiln Door Builder Relationship Specialty Start Date End Date Laura Hidalgo APRN [address] [place] [address] PCP - General Internal Medicine 08/16/16 documented as of this encounter
--- OUTSIDE RECORDS SUMMARY | 2023-12-27 01:03 | XMS_ITS | Encounter Summary ---
Author Organization [facility] [place] [address] Care Team Providers Care Mixed Crop Farmer Name Role Phone Laura Hidalgo APRN Primary Care Provider [phone] Reason for Visit * Reason Comments Medication Refill Encounter Details Date Type Department Care Team (Late st Contact Info) Description 07/22/2020 [place] [address] Julio Welsh MD [facility] [place] [address] Social History Tobacco Use Types Packs/Day Years [...] on filedocumented in this encounter Care Teams Mixed Crop Farmer Relationship Specialty Start Date End Date Laura Hidalgo APRN [address] [place] [place] [address] PCP - General Internal Medicine 08/16/16 documented as of this encounter
--- OUTSIDE RECORDS SUMMARY | 2023-12-27 01:03 | XMS_ITS | Encounter Summary ---
Author Organization [facility] [place] [address] Care Team Providers Care Card Scraper Name Role Phone Laura Hidalgo APRN Primary Care Provider [phone] Encounter Details Date Type Department Care Team (Late st Contact Info) Description 12/18/2020 8:30 AM EDT [place] [phone] Julio Welsh MD [facility] [place] [address] Intractable migraine without status migrainosus, unspecified migraine [...] Sign Reading Time Taken Comments Blood Pressure 107/63 12/18/2020 8:32 AM EDT Pulse 84 12/18/2020 8:32 AM EDT Temperature - - Respiratory Rate - - Oxygen Saturation - - Inhaled Oxygen Concentration - - Weight 102.1 kg (225 lb) 12/18/2020 8:32 AM EDT with shoes Height 147.3 cm (4' 10) 12/18/2020 8:32 AM EDT Body Mass Index 47.03 12/18/2020 8:32 AM EDT documented in this encounter Progress Notes * Julio Welsh MD - 12/18/2020 8:30 AM EDT Neurology clinic note Chief Complaint: Headaches, stroke, and hemiparesis. History: The patient was seen in follow-up today. As noted earlier, she had loss [...] with vitamin D and topical Voltaren. In 2016 she had an emergency cholecystectomy. This was [...] equivalent. I spoke with her neurologist in [place] Dr. Thomson whom I know well. CT [...] to have a variety of musculoskeletal symptoms. Interval history: As of 2020 the patient is doing about the same. She gets bad headaches every few weeks. These are responding quite well to Maxalt although it does make her tired as the headache resolves She recently had surgery for a heel tendon lengthening operation on paretic left side. She will be getting a new brace for the left leg She is complaining more of symptoms of neurogenic bladder. She is scheduled for an ultrasound studytoday She tells me she had a bone scan recently that showed osteoporosis. Past medical history: Patient Active Problem List [...] with son. On disability Physical Exam: BP 107/63 Pulse 84 Ht 147.3 cm (4' 10) Wt 102.1 kg (225 lb) Comment: with shoes BMI 47.03 kg/m?? Head, eyes, ears, nose and throat [...] TABLET BY MOUTH TWICE DAILY 180 tablet 0 ??? baclofen (Lioresal) 10 mg Tablet Take 1 tablet by mouth 3 times daily. 270 tablet 0 ??? meloxicam (MOBIC) 7.5 mg Tablet TAKE 1 TABLET BY MOUTH DAILY 90 tablet 1 ??? amitriptyline (Elavil) 50 mg Tablet TAKE 1 TABLET BY MOUTH EVERY EVENING 30 tablet 5 ??? atorvastatin (Lipitor) 20 mg Tablet TAKE 1 TABLET BY MOUTH AT BEDTIME. ??? cyclobenzaprine (Flexeril) 5 mg Tablet TK 1 T PO TID PRF MUSCLE SPASM ??? magnesium 250 mg Tablet Take 1 [...] Take 500 mg by mouth daily. ??? omeprazole (PRILOSEC) 40 mg Capsule, Delayed Release(E.C.) Take 40 mg by mouth daily. 0 No current facility-administered medications for this visit. [...] gets a bad headache. This works adequately and she needs it quite seldom, 1-2 times per month 3. Her vision problems appear to have [...] defer in this regard to her PCP 6. Complaints of neurogenic bladder are a new issue. She says is getting worse. Urinalysis was unremarkable and I have arranged for her to get a pre- and post- void renal and bladder ultrasound study here today. Based on that we can decide what medical or surgical management might be helpful. Thank you for this consultation. I will see her back in 6 months or sooner if necessary Julio Welsh MD [place] [address] Pager: [phone], #[phone] Email: [email or web address] CC: Laura Hidalgo APRN documented in this encounter Plan of Treatment Not on file documented as of this encounter Visit Diagnoses Diagnosis Intractable migraine without status migrainosus, unspecified migraine type documented in this encounter Care Teams Card Scraper Relationship Specialty Start Date End Date Laura Hidalgo APRN [address] [place] [address] PCP - General Internal Medicine 08/16/16 documented as of this encounter
--- OUTSIDE RECORDS SUMMARY | 2023-12-27 01:03 | XMS_ITS | Encounter Summary ---
Author Organization [facility] Address [facility] [place] [address] Care Team Providers Care Shuttle Fitting Supervisor Name Role Phone Laura Hidalgo APRN Primary Care Provider [phone] Encounter Details Date Type Department Care Team (Latest Contact Info) Description 12/18/2020 9:08 AM EDT - 12/18/2020 11:59 PM EDT Hospital [place] [id number] Mady Reyes MD [facility] [place] [address] Neurogenic bladder Discharge Disposition: Home Social History Tobacco Use [...] Sig Dispensed Refills Start Date End Date fluticasone propionate (FLONASE) 50 mcg/actuation Dickson, Suspension SHAKE LIQUID AND USE 2 SPRAYS IN EACH NOSTRIL DAILY 12/05/2020 atorvastatin (Lipitor) 20 mg Tablet TAKE 1 TABLET BY MOUTH AT BEDTIME. 08/17/2019 albuterol (PROAIR HFA) 90 mcg/actuation HFA Aerosol Inhaler INHALE 2 PUFFS INTO THE LUNGS DAILY NEEDED FOR WHEEZING, USE WITH SPACER. 8.5 g 5 12/02/2016 valACYclovir (VALTREX) 500 mg tablet Take 500 mg by mouth daily. 12/24/2010 raloxifene (EVISTA) 60 mg tablet Take 60 mg by mouth daily. 12/05/2023 amitriptyline (Elavil) 50 mg Tablet TAKE 1 TABLET BY MOUTH EVERY EVENING 30 tablet 5 12/05/2020 06/16/2021 rizatriptan (MAXALT) 10 mg Tablet Take 1 pill twice a day as needed. 10 pills is a 1 month supply. 10 tablet 5 10/22/2020 07/23/2021 topiramate (Topamax) 25 mg Tablet TAKE 1 TABLET BY MOUTH TWICE DAILY 180 tablet 10/16/2020 02/10/2021 baclofen (Lioresal) 10 mg Tablet Take 1 tablet by mouth 3 times daily. 270 tablet 10/16/2020 01/18/2021 meloxicam (MOBIC) 7.5 mg Tablet TAKE 1 TABLET BY MOUTH DAILY 90 tablet 1 07/22/2020 01/19/2021 cyclobenzaprine (Flexeril) 5 mg Tablet TK 1 T PO TID PRF MUSCLE SPASM 06/15/2019 12/31/2021 omeprazole (PRILOSEC) 40 mg Capsule, Delayed Release(E.C.) Take 40 mg by mouth daily. 0 12/05/2017 07/23/2021 magnesium 250 mg Tablet Take 1 tablet by mouth 2 times daily. 12/31/2021 calcium carbonate/vitamin D3 (CALCIUM + D ORAL) Take 1 tablet by mouth daily. 06/09/2021 hydrOXYzine (ATARAX) 25 mg Tablet Take 1 tablet by mouth 2 times daily as needed (dizziness). 30 tablet 11/07/2017 06/16/2021 cholecalciferol, Vitamin D3, 50,000 unit CapsuleIndications:Desi min D deficiency Take 1 capsule by mouth once a week. 8 capsule 05/03/2017 06/09/2021 multivitamin (THERAGRAN) Tablet Take 1 tablet by mouth daily. 06/09/2021 documented as of this encounter Plan of Treatment Not on file documented as of this encounter Procedures Procedure Name Priority Date/Time Associated Diagnosis Comments US RETROPERITONEAL COMPLETE Routine 12/18/2020 9:37 AM EDT Neurogenic bladder documented in this encounter Results * US Retroperitoneal Complete (12/18/2020 9:37 AM EDT) Anatomical Region Laterality Modality Abdomen Ultrasound 12/18/2020 9:24 AM EDT Impressions 12/18/2020 9:49 AM EDT ?? There are no prior studies available for comparison. 1. ??Both kidneys appear normal in size and morphology. Specifically, no evidence of hydronephrosis. 2. ??Partially distended bladder is normal in contour. Thank you for letting us participate in the care of this patient. ??If you are a health care provider and have any questions regarding this report, please contact the number below. ??For patients who have questions please contact the health child care worker that requested your imaging first. Electronically signed by: Phyllis Chavira MD, [facility] ([phone]), at 12/18/2020 9:41 AM Thank you for letting us participate in the care of this patient. If you are a health care provider and have any questions regarding this report, please contact the number below. For patients who have questions, please contact the health child care worker that requested your imaging first. ?Phyllis Spencer, Staff Physician Electronically Signed Final Report ?? 12/18/2020 09:48 am Narrative 12/18/2020 9:49 AM EDT Renal ? (Signed Final 12/18/2020 09:48 am) PATIENT INFO: ID #: ? [id number] ?: ??[birth year] (45 yrs)(F) Name: ? PETER Jj DEVOID ?Visit Date: 12/18/2020 09:24 am PERFORMED BY: Performed By: ? Whitney Richardson RDMS Attending: ?Phyllis Chavira MD Referred By: ?MADY REYES Location: ? [place] SERVICE(S) PROVIDED: URETRO - Retroperitoneal Complete - [id number] ? [id number] INDICATIONS: Symptoms of neurogenic bladder retention and urge incontinence. ??Needing to use diapers. ??History of cerebral palsy. ??Rule out retention rule out hydronephrosis RIGHT KIDNEY: Size (cm) ?L: ??10.5 Cortical Thickness: ?Normal Cortical Echogenicity: ?? Normal Hydronephrosis: ?No sonographic evidence LEFT KIDNEY: Size (cm) ?L: ??9.7 Cortical Thickness: ?Normal Cortical Echogenicity: ?? Normal Hydronephrosis: ?No sonographic evidence URINARY BLADDER: Pre-void (cm) ? L: ??5.1 ? AP: ??2.5 ? TV: ??6.0 Vol (ml): ?40.1 Comment: ?Partially distended, normal contour Procedure Note Phyllis Duarte MD - 12/18/2020 Renal (Signed Final 12/18/2020 09:48 am) PATIENT INFO: ID #: [id number] : [birth year] (45 yrs)(F) Name: PETER SANTIAGO Visit Date: 12/18/2020 09:24 am PERFORMED BY: Performed By: Whitney Richardson RDMS Attending: Phyllis Chavira MD Referred By: MADY REYES Location: [place] SERVICE(S) PROVIDED: URETRO - Retroperitoneal Complete - [id number] INDICATIONS: Symptoms of neurogenic bladder retention and urge incontinence. Needing to use diapers. History of cerebral palsy. Rule out retention rule out hydronephrosis RIGHT KIDNEY: Size (cm) L: 10.5 Cortical Thickness: Normal Cortical Echogenicity: Normal Hydronephrosis: No sonographic evidence LEFT KIDNEY: Size (cm) L: 9.7 Cortical Thickness: Normal Cortical Echogenicity: Normal Hydronephrosis: No sonographic evidence URINARY BLADDER: Pre-void (cm) L: 5.1 AP: 2.5 TV: 6.0 Vol (ml): 40.1 Comment: Partially distended, normal contour IMPRESSION There are no prior studies available for comparison. 1. Both kidneys appear normal in size and morphology. Specifically, no evidence of hydronephrosis. 2. Partially distended bladder is normal in contour. Thank you for letting us participate in the care of this patient. If you are a health care provider and have any questions regarding this report, please contact the number below. For patients who have questions please contact the health child care worker that requested your imaging first. Electronically signed by: Phyllis Chavira MD, [facility] ([phone]), at 12/18/2020 9:41 AM Thank you for letting us participate in the care of this patient. If you are a health care provider and have any questions regarding this report, please contact the number below. For patients who have questions, please contact the health child care worker that requested your imaging first. Phyllis Chavira-Des, Staff Physician Electronically Signed Final Report 12/18/2020 09:48 am Mady Reyes MD IMG US GEN ORDERABLE S documented in this encounter Visit Diagnoses Diagnosis Neurogenic bladder Neurogenic bladder, NOS documented in this encounter Care Teams Shuttle Fitting Supervisor Relationship Specialty Start Date End Date Laura Hidalgo APRN [address] [place] [address] PCP - General Internal Medicine 08/16/16 documented as of this encounter
--- OUTSIDE RECORDS SUMMARY | 2023-12-27 01:03 | XMS_ITS | Encounter Summary ---
Author Organization [facility] [place] [address] Care Team Providers Care Spin Table Operator Name Role Phone Laura Hidalgo APRN Primary Care Provider [phone] Reason for Visit * Reason Comments Medication Refill Encounter Details Date Type Department Care Team (Late st Contact Info) Description 08/27/2019 [place] [address] Julio Welsh MD [facility] [place] [address] Social History Tobacco Use Types Packs/Day Years [...] on filedocumented in this encounter Care Teams Spin Table Operator Relationship Specialty Start Date End Date Laura Hidalgo APRN [address] [place] [address] PCP - General Internal Medicine 08/16/16 documented as of this encounter
--- OUTSIDE RECORDS SUMMARY | 2023-12-27 01:03 | XMS_ITS | Encounter Summary ---
Author Organization [facility] [place] [address] Care Team Providers Care Smoke Jumper Supervisor Name Role Phone Laura Hidalgo APRN Primary Care Provider [phone] Reason for Visit * Reason Comments Medication Refill Encounter Details Date Type Department Care Team (Late st Contact Info) Description 08/07/2019 [place] [address] Julio Welsh MD [facility] [place] [address] Social History Tobacco Use Types Packs/Day Years [...] on filedocumented in this encounter Care Teams Smoke Jumper Supervisor Relationship Specialty Start Date End Date Laura Hidalgo APRN [address] [place] [address] PCP - General Internal Medicine 08/16/16 documented as of this encounter
--- OUTSIDE RECORDS SUMMARY | 2023-12-27 01:03 | XMS_ITS | Encounter Summary ---
Author Organization [facility] [place] [address] Care Team Providers Care Stonework Supervisor Name Role Phone Laura Hidalgo APRN Primary Care Provider [phone] Reason for Visit * Reason Comments Medication Refill Encounter Details Date Type Department Care Team (Late st Contact Info) Description 09/10/2018 [place] [address] Julio Welsh MD [facility] [place] [address] Social History Tobacco Use Types Packs/Day Years [...] on filedocumented in this encounter Care Teams Stonework Supervisor Relationship Specialty Start Date End Date Laura Hidalgo APRN [address] [place] [address] PCP - General Internal Medicine 08/16/16 documented as of this encounter
--- OUTSIDE RECORDS SUMMARY | 2023-12-27 01:03 | XMS_ITS | Encounter Summary ---
Author Organization [facility] [place] [address] Care Team Providers Care Auto Radio Mechanic Name Role Phone Laura Hidalgo APRN Primary Care Provider [phone] Encounter Details Date Type Department Care Team (Late st Contact Info) Description 10/22/2020 4:30 PM EDT [place] [phone] Mady Reyes MD [facility] [place] [address] Intractable migraine without status migrainosus, unspecified migraine type; Herpes; Dysuria; Neurogenic bladder Social History Tobacco Use Types Packs/Day Years [...] Sign Reading Time Taken Comments Blood Pressure 100/53 10/22/2020 4:32 PM EDT Pulse 80 10/22/2020 4:32 PM EDT Temperature - - Respiratory Rate - - Oxygen Saturation - - Inhaled Oxygen Concentration - - Weight 102.5 kg (226 lb) 10/22/2020 4:32 PM EDT reported Height 147.3 cm (4' 10) 10/22/2020 4:32 PM EDT reported Body Mass Index 47.23 10/22/2020 4:32 PM EDT documented in this encounter Patient Instructions * Patient Instructions* Mady Reyes MD - 10/22/2020 4:30 PM EDT There are 2 separate issues for today's visit. Please try Maxalt 1 pill twice a day as needed when you get a bad headache You are having difficulty with bladder control I wanted to get some ultrasound pictures here and after that based on the pictures we will decide what we can do to treat the problem. My accredited legal secretary will contact you. I will see you back here in a few weeks. Mady Reyes MD Professor of neurology, [employer] [facility] Department of Neurology, [address] Pager: [phone], #[phone] Email: [email or web address] documented in this encounter Progress Notes * Mady Reyes MD - 10/22/2020 4:30 PM EDT Neurology clinic note Chief [...] equivalent. I spoke with her neurologist in [place] Dr. Thomson whom I know well. CT [...] She gets bad headaches every few weeks. She recently had surgery for a heel tendon lengthening operation on paretic left side. She is complaining more of symptoms of neurogenic bladder. Past medical history: Patient Active Problem List [...] with son. On disability Physical Exam: BP 100/53 Pulse 80 Ht 147.3 cm (4' 10) Comment: reported Wt 102.5 kg (226 lb) Comment: reported BMI 47.23 kg/m?? Head, eyes, ears, nose and throat [...] visual field constriction in the right eye. The optic disc was flat. Visual acuity was [...] the left ankle reflex, which cannot be elicited at baseline and is denver cast now She has minor sensory deficits on the [...] Placed This Encounter Procedures ??? US Retroperitoneal Complete ??? 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 [...] when she gets a bad headache. This seems to happen fairly seldom. 3. Her vision problems appear to have [...] recently had left heel cord lengthening surgery. 6. Complaints of neurogenic bladder are a new issue. She says is getting worse. I am requesting a urinalysis today, and will arrange for her to get a pre and post void renal and bladder ultrasound study. Based on that we can decide what medical or surgical management might be helpful. Thank you for this consultation. I will see her back in a few weeks Mady Reyes MD Department [place] [address] Pager: [phone], #[phone] Email: [email or web address] CC: Lauraneena Hammondneena MARTINO documented in this encounter Plan of Treatment Not on file documented as of this encounter Procedures Procedure Name Priority Date/Time Associated Diagnosis Comments URINALYSIS MICROSCOPIC EXAM Routine 10/22/2020 5:41 PM EDT URINALYSIS WITH REFLEX CULTURE Routine 10/22/2020 5:41 PM EDT Dysuria documented in this encounter Results * US [...] who have questions please contact the health career based intervention coordinator that requested your imaging first. Thank you for letting us participate in the care of this patient. If you are a health care provider and have any questions regarding this report, please contact the number below. For patients who have questions, please contact the health career based intervention coordinator that requested your imaging first. ?Phyllis Bonilla-Des Staff Physician Electronically Signed Final Report ?? 12/18/2020 09:48 am Narrative 12/18/2020 9:49 AM EDT Renal ? (Signed Final 12/18/2020 09:48 am) PATIENT INFO: ID #: ? [id number] ?: ??[birth year] (45 yrs)(F) Name: ? WILFREDOINDIANA Jj DEVOID ?Visit Date: 12/18/2020 09:24 am PERFORMED BY: Performed By: ? Whitney Richardson RDMS Attending: ?Fan JOHNSON, Phyllis Lara Referred By: ?MADY REYES Location: ? [place] SERVICE(S) PROVIDED: URETRO - Retroperitoneal Complete - [id number] ? [id number] INDICATIONS: Symptoms of neurogenic bladder retention and [...] 12/18/2020 09:48 am) PATIENT INFO: ID #: [id number] : [birth year] (45 yrs)(F) Name: YULI SANTIAGO Visit Date: 12/18/2020 09:24 am PERFORMED BY: Performed By: Whitney Richardson RDMS Attending: Phyllis Bonilla MD Referred By: MADY REYES Location: [place] SERVICE(S) PROVIDED: URETRO - Retroperitoneal Complete - [id number] INDICATIONS: Symptoms of neurogenic bladder retention and [...] who have questions please contact the health career based intervention coordinator that requested your imaging first. Thank you for letting us participate in the care of this patient. If you are a health care provider and have any questions regarding this report, please contact the number below. For patients who have questions, please contact the health career based intervention coordinator that requested your imaging first. Phyllis Spencer, Staff Physician Electronically Signed Final Report 12/18/2020 09:48 am Mady Reyes MD [facility] GEN ORDERABLE S * (ABNORMAL) Urinalysis Microscopic Exam (10/22/2020 5:41 PM EDT) RBC UA <1 0 - 4 /HPF [facility] WBC UA 2 0 - 5 /HPF [facility] Bacteria UA Rare(A) None /HPF [facility] Squam Epith UA 11(H) <=4 /HPF [facility] Hyaline Cast UA 5(H) 0 - 2 /LPF [facility] CaOx Eva UA Rare(A) None /HPF [facility] Clean Catch Urine 10/22/2020 5:41 PM EDT 10/22/2020 5:50 PM EDT Narrative Resulting Agency Comment Spec In Lab Mady Reyes MD URINE ORDERABLES [facility] [place] [address] * (ABNORMAL) Urinalysis with reflex Culture (10/22/2020 5:41 PM EDT) Glucose UA Negative Negative mg/dL [facility] Protein UA Negative Negative mg/dL [facility] Bilirubin UA Negative Negative mg/dL [facility] Comment: Clinical correlation required for positive Urine Bilirubin results as false positive may occur with some drugs and drug related products. If a false positive is suspected a serum total bilirubin should be considered if clinically indicated. Urobilinogen UA Normal Normal mg/dL [facility] pH UA 6.5 5.0 - 8.0 [facility] Blood UA Negative Negative mg/dL [facility] Ketones UA Trace(A) Negative mg/dL [facility] Nitrite UA Negative Negative [facility] Leukocytes UA Trace(A) Negative [facility] Appearance UA Turbid(A) Clear [facility] Spec [place] UA 1.023 1.006 - 1.030 [facility] Color UA Yellow Yellow [facility] Culture Reflexed No [facility] Clean Catch Urine 10/22/2020 5:41 PM EDT 10/22/2020 5:50 PM EDT Narrative Resulting Agency Comment Spec In Lab Mady Reyes MD URINE ORDERABLES Performing Organization Address City/[facility]/ZIP Co de Phone Number [facility] [place] [address] documented in this encounter Visit Diagnoses Diagnosis Intractable migraine without status migrainosus, unspecified migraine type Herpes Herpes simplex without mention of complication Dysuria Neurogenic bladder Neurogenic bladder, NOS Neurogenic bladder Neurogenic bladder, NOS documented in this encounter Care Teams Auto Radio Mechanic Relationship Specialty Start Date End Date Laura Hidalgo, POT ANNEALER [address] [place] [address] PCP - General Internal Medicine 08/16/16 documented as of this encounter
--- OUTSIDE RECORDS SUMMARY | 2023-12-27 01:03 | XMS_ITS | Encounter Summary ---
Author Organization [facility] [address] Care Team Providers Care Water Plant Pump Operator Name Role Phone Laura Hidalgo APRN Primary Care Provider [phone] Reason for Visit * Reason Comments Medication Refill Encounter Details Date Type Department Care Team (Late st Contact Info) Description 12/02/2019 [place] [address] Julio Welsh MD [facility] [place] [address] Social History Tobacco Use Types Packs/Day Years [...] on filedocumented in this encounter Care Teams Water Plant Pump Operator Relationship Specialty Start Date End Date Laura Hidalgo APRN [address] [place] [address] PCP - General Internal Medicine 08/16/16 documented as of this encounter
--- OUTSIDE RECORDS SUMMARY | 2023-12-27 01:03 | XMS_ITS | Encounter Summary ---
Author Organization [facility] Address [facility] [place] [address] Care Team Providers Care Teacher Of The Handicapped Name Role Phone Laura Hidalgo APRN Primary Care Provider [phone] Reason for Referral * High Dollar Medication (Routine) - Closed Specialty Diagnoses / Procedures Referred By Contac t Referred To Contact Hematology and Oncology Diagnoses Osteoporosis, unspecified osteoporosis type, unspecified pathological fracture presence Procedures Zolendronic Acid (Reclast) Authorization Request TC ZOLEDRONIC ACID, 1 MG, INJECTION J3489 Lizzie Jones MD [facility] [place] [address] [facility] Hem Onc Office [address] [place] [id number] Referral ID Status Reason Start Date Expiration Date V isits Requested Visits Authorized [id number] Closed Consult, Test & Treat 07/08/2021 08/23/2021 99 99 Encounter Details Date Type Department Care Team (Late st Contact Info) Description 07/08/2021 Orders [place] [address] Lizzie Silvestre MD [facility] [place] [place] [address] Osteoporosis, unspecified osteoporosis type, unspecified pathological fracture [...] presence documented in this encounter Care Teams Teacher Of The Handicapped Relationship Specialty Start Date End Date Laura Hidalgo, PHOSPHORIC ACID SUPERVISOR [address] [place] [address] PCP - General Internal Medicine 08/16/16 documented as of this encounter
--- OUTSIDE RECORDS SUMMARY | 2023-12-27 01:03 | XMS_ITS | Encounter Summary ---
Author Organization [facility] [place] [address] Care Team Providers Care Electronic Operator Name Role Phone Laura Hidalgo APRN Primary Care Provider [phone] Reason for Visit * Reason Comments Medication Refill Encounter Details Date Type Department Care Team (Late st Contact Info) Description 01/30/2020 [place] [address] Julio Welsh MD [facility] [place] [address] Social History Tobacco Use Types Packs/Day Years [...] on filedocumented in this encounter Care Teams Electronic Operator Relationship Specialty Start Date End Date Laura Hidalgo APRN [address] [place] [address] PCP - General Internal Medicine 08/16/16 documented as of this encounter
--- OUTSIDE RECORDS SUMMARY | 2023-12-27 01:03 | XMS_ITS | Encounter Summary ---
Author Organization [facility] [place] [address] Care Team Providers Care Asset Protection Lead Name Role Phone Laura Hidalgo APRN Primary Care Provider [phone] Reason for Visit * Reason Comments Medication Refill Encounter Details Date Type Department Care Team (Late st Contact Info) Description 12/10/2018 [place] [address] Julio Welsh MD [facility] [place] [address] Social History Tobacco Use Types Packs/Day Years [...] on filedocumented in this encounter Care Teams Asset Protection Lead Relationship Specialty Start Date End Date Laura Hidalgo APRN [address] [place] [address] PCP - General Internal Medicine 08/16/16 documented as of this encounter
--- OUTSIDE RECORDS SUMMARY | 2023-12-27 01:03 | XMS_ITS | Encounter Summary ---
Author Organization [facility] [place] [address] Care Team Providers Care Flight Control Specialist Name Role Phone Laura Hidalgo APRN Primary Care Provider [phone] Reason for Visit * Reason Comments Medication Refill Encounter Details Date Type Department Care Team (Late st Contact Info) Description 01/18/2021 [place] [address] Julio Welsh MD [facility] [place] [address] Social History Tobacco Use Types Packs/Day Years [...] Telephone Encounter - Jeannie Tesfaye RN - 01/18/2021 11:43 AM EDT surescript for baclofen Last rx 10/2020 3 mo n RF Last appt 12/18/20 FUV due Jun 2021 not yet sched documented in this encounter Plan of Treatment Not on file documented as of this encounter Visit Diagnoses Not on filedocumented in this encounter Care Teams Flight Control Specialist Relationship Specialty Start Date End Date Laura Hidalgo APRN [address] [place] [address] PCP - General Internal Medicine 08/16/16 documented as of this encounter
--- OUTSIDE RECORDS SUMMARY | 2023-12-27 01:03 | XMS_ITS | Encounter Summary ---
Author Organization Formerly [facility] [place] [address] Care Team Providers Care Automatic Head Sawyer Name Role Phone Laura Hidalgo APRN Primary Care Provider Encounter Details Date Type Department Care Team (Late st Contact Info) Description 02/21/2018 11:30 AM EDT [place] [phone] Julio Welsh MD [facility] [place] [address] Intractable migraine with aura without status migrainosus; [...] Sign Reading Time Taken Comments Blood Pressure 113/66 02/21/2018 10:56 AM EDT Pulse 90 02/21/2018 10:56 AM EDT Temperature - - Respiratory Rate - - Oxygen Saturation - - Inhaled Oxygen Concentration - - Weight 90.3 kg (199 lb) 02/21/2018 10:56 AM EDT reported Height 147.3 cm (4' 10) 02/21/2018 10:56 AM EDT reported Body Mass Index 41.59 02/21/2018 10:56 AM EDT documented in this encounter Patient Instructions * Patient Instructions* Julio Welsh MD - 02/21/2018 11:30 AM EDT I think you are doing reasonably well. Your migraines appear to be under control. I would do nothing different in that regard. Your right knee is hurting because you are probably overusing it as to protect your weaker left side I think you would benefit from a knee brace. Please take the prescription to the orthopedic shop and they will fityou with brace I would like to see you back in 6 months or sooner if necessary. Julio Welsh MD [place] [address] Pager: [phone], #[phone] Email: [email or web address] documented in this encounter Progress Notes * Julio Welsh MD - 02/21/2018 11:30 AM EDT Neurology clinic note Chief Complaint: [...] equivalent. I spoke with her neurologist in [place] Dr. Thomson whom I know well. CT scan of the head was unremarkable. Those symptoms are not resolved and have not recurred. Interval history: The patient is doing quite well. He is having rare migrainous headaches. She has not had any major visual disturbances or vertigo. She is complaining more of knee pain on the right Past medical history: Patient Active Problem List [...] with son. On disability Physical Exam: BP 113/66 (BP Location (NBP): Left arm, Patient Position: Sitting, BP Cuff Sizes: Large Adult (32-43 cm)) Pulse 90 Ht 147.3 cm (4' 10) Comment: reported Wt 90.3 kg (199 lb) Comment: reported BMI 41.59 kg/m2 Head, eyes, ears, nose and throat were [...] visual field constriction in the right eye. Vision was normal today for finger counting. Previously, visual acuity was 20/30 with the 14 inchcard and her glasses. Tuning fork tests suggest [...] gait with circumduction of the left leg. Medications: Current Outpatient Prescriptions Medication Sig Dispense [...] that switches a lot betweendifferent joints. I think she is staring her left side, and so has more pain in the right knee. I am arranging for her to be fitted with a flexible knee support on the right. Thank you for this consultation. I will see her back in 6 months or sooner as needed. Julio Welsh MD Department [place] [address] Pager: [phone], #[phone] Email: [email or web address] cc: Laura Thomson documented in this encounter Plan of Treatment Not on file documented as of this encounter Visit Diagnoses Diagnosis Intractable migraine with aura without status migrainosus Migraine with aura, with intractable migraine, so stated, without mention of status migrainosus Chronic pain of right knee documented in this encounter Care Teams Automatic Head Sawyer Relationship Specialty Start Date End Date Laura Hidalgo APRN [address] [place] [address] PCP - General Internal Medicine 08/16/16 documented as of this encounter
--- OUTSIDE RECORDS SUMMARY | 2023-12-27 01:03 | XMS_ITS | Encounter Summary ---
Author Organization [facility] [place] [address] Care Team Providers Care Cane Packer Name Role Phone Laura Hidalgo APRN Primary Care Provider [phone] Reason for Visit * Reason Comments Medication Refill Encounter Details Date Type Department Care Team (Late st Contact Info) Description 12/05/2020 [place] [address] Julio Welsh MD [facility] [place] [address] Social History Tobacco Use Types Packs/Day Years [...] on filedocumented in this encounter Care Teams Cane Packer Relationship Specialty Start Date End Date Laura Hidalgo APRN [address] [place] [address] PCP - General Internal Medicine 08/16/16 documented as of this encounter
--- OUTSIDE RECORDS SUMMARY | 2023-12-27 01:03 | XMS_ITS | Encounter Summary ---
Author Organization [facility] [place] [address] Care Team Providers Care Computer Installation Engineer Name Role Phone Laura Hidalgo APRN Primary Care Provider [phone] Reason for Visit * Reason Comments Medication Refill Encounter Details Date Type Department Care Team (Late st Contact Info) Description 02/09/2021 [place] [phone] Julio Welsh MD [facility] [place] [address] Social History Tobacco Use Types Packs/Day Years [...] Telephone Encounter - Alyssa Pittman RN - 02/10/2021 12:51 PM EDT Surescript request for : Topiramate Last rx: 10/16/20 Quantity: 180 Refills: 0 From last note: She suffers from migraine, her most recent symptoms of visual disturbance and vertigo may well have been a migraine equivalent. There is also evidence of polypharmacy and she seems better after reducing the doses of Topamax and baclofen. She is on meloxicam chronically for her otheraches and pains. I am prescribing Maxalt 10 mg twice daily as needed for when she gets a bad headache. This works adequately and she needs it quite seldom, 1-2 times per month Last appt: 12/18/20 Next appt: documented in this encounter Plan of Treatment Not on file documented as of this encounter Visit Diagnoses Not on filedocumented in this encounter Care Teams Computer Installation Engineer Relationship Specialty Start Date End Date Laura Hidalgo APRN [address] [place] [address] PCP - General Internal Medicine 08/16/16 documented as of this encounter
--- OUTSIDE RECORDS SUMMARY | 2023-12-27 01:03 | XMS_ITS | Encounter Summary ---
Author Organization [facility] [place] [address] Care Team Providers Care Marketing Communications Manager Name Role Phone Laura Hidalgo APRN Primary Care Provider [phone] Encounter Details Date Type Department Care Team (Latest Contact Info) Description 05/25/2021 1:00 PM EST TH Visit (TeleHealth) [place] [phone] Lizzie Silvestre MD [facility] [place] [address] Osteoporosis, unspecified osteoporosis type, unspecified pathological fracture [...] Progress Notes * Lizzie Silvestre MD - 05/25/2021 1:00 PM EST Date of Visit: 05/25/2021 Patient Name: Yuli Romero : 1975 PCP: Laura Hidalgo APRN Mrs Yuli Romero is 46yo, here for tele follow-up on osteoporosis. Mrs Romero is 46 yo, with cerebral palsy, frequent falls as yimi L leg is week and no minimal traumafracture as she walks with caballero. She was on Evista per patient for 4-5 years, but no other treatment for osteoporosis. Had BSO-SHANE as per patient at age 28 due to endometriosis. Was on ERT but I was allergic to it. Has had 3 episodes of kidney stones, one was remove surgically. ?? Her last BMD by DXA done on 12/2020 LS - 3.1 SD LFN -2.5 SD LH -2.3 SD on T score (was -2.1 in 2018) ?? Other risk factors for fracture/osteoporosis are: []? Yes [x]? No Smoking, if yes, how long []? Yes [x]? No Drinking alcohol. 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 Yes [x]? No Exercise If yes how long and what kind of exercise []? Yes [x]? No Stomach or bowel surgery. If yes, When and what kind []? Yes [x]? No Loose bowel movements. If yes, how frequently and how long []? Yes [x]? No Loss of height [x]? Yes []? No History of kidney stones? If yes, when and how many episodes? []? Yes [x]? No Kidney or liver problems? If yes, what kind and how long? ?? Average time spent outside in direct sun a day []? 0-5 min []? 5-10 min []? 11-15 min []? 16-20 min [x]? 21-25 min []? 26-30 min []? >30 min For women: End of menstrual cycle 28 due to surgery Daily calcium intake: []? 0-100 mg []? 101-200 mg []? 201-300 mg []? 301-400 mg [x]? 401-500 mg from eating 2 cheese sticks daily, yogurt twice a week []? 501-600 mg []? 601-700 mg []? 701-900 mg []? 901-1100 mg []? 5651-3592 mg []? 5326-1715 mg []? Above 1500 mg Medications: Current Outpatient Medications on File Prior to Visit Medication Sig Dispense Refill ??? baclofen (Lioresal) 10 mg Tablet TAKE 1 TABLET BY MOUTH THREE TIMES DAILY 270 tablet 1 ??? meloxicam (MOBIC) 7.5 mg Tablet TAKE 1 TABLET BY MOUTH DAILY 90 tablet 1 ??? topiramate (Topamax) 25 mg Tablet TAKE 1 TABLET BY MOUTH TWICE DAILY 180 tablet 1 ??? fluticasone propionate (FLONASE) 50 mcg/actuation [place], Suspension SHAKE LIQUID AND USE 2 SPRAYS [...] facility-administered medications on file prior to visit. PMH: Patient Active Problem List Diagnosis Code [...] ??? Herpes B00.9 ??? Elevated LFTs R79.89 Allergies Allergen Reactions ??? Allergenic Extracts Shortness [...] Types: Cigarettes Quit date: 04/13/2007 Years since quittin.1 ??? Smokeless tobacco: Never Used Vaping Use ??? Vaping Use: Never used Substance and Sexual Activity ??? Alcohol use: No ??? Drug use: No ??? Sexual activity: Not on file Comment: deferred Other Topics Concern ??? Not on file Social History Narrative Single, two children. Social Determinants of Health Financial Resource Strain: Not on file Food Insecurity: Not on file Transportation Needs: Not on file Physical Activity: Not on file Housing Stability: Not on file Physical Examination: Appearance: well hydrated, well nourished, oriented x 3, in nad. Labs 04/2021 24h urine ca 150mg/Cr 0.9g 03/2021 CBC, Cjem 7 in good range, PTH 88, 25-D 44.3, TFTs in good range 04/2017 25-D 26, TSH 1.86 07/2012 CBC and Chem 7 in good range. ?? Assessment and Plan ?? 1. Osteoporosis: Mrs Yuli Romero has severe osteoporosis due to early surgical menopause, low Ca intake and kidney stones. Topiramate is know to increase kidney stones. A. As patient's Ca intake is 400 mg from food, 24h urine Ca is low, PTH high normal, after that shestarted on Ca supplements. B. Patient also does have Vitamin D at goal, 30 ng/ml and above. Takes 1100U a day. C. Will order BMD by DXA 05/2022 D. As 25 Vit D, PTH at good range, and 24h urine Ca likely improved on Ca intake, will give zoledronic acid now. E. I will schedule patient for outpatient visit at 12 month. ?? Thank you for allowing me to participate in the care of this very pleasant patient. I spend 35min in chart review of DXA, labs, sent notes, discussing osteoporosis and writing my note. ?? Sincerely, ?? Lizzie Silvestre MD Professor documented in this encounter Plan of Treatment Not on file documented as of this encounter Visit Diagnoses Diagnosis Osteoporosis, unspecified osteoporosis type, unspecified pathological fracture presence documented in this encounter Care Teams Marketing Communications Manager Relationship Specialty Start Date End Date Laura Hidalgo, CIGAR WRAPPER [address] [place] [address] PCP - General Internal Medicine 08/16/16 documented as of this encounter
--- OUTSIDE RECORDS SUMMARY | 2023-12-27 01:03 | XMS_ITS | Encounter Summary ---
Author Organization [facility] [place] [address] Care Team Providers Care Mangle Roller Name Role Phone Laura Hidalgo APRN Primary Care Provider [phone] Reason for Visit * Reason Comments Medication Refill Encounter Details Date Type Department Care Team (Late st Contact Info) Description 08/11/2018 [place] [address] Julio Welsh MD [facility] [place] [address] Social History Tobacco Use Types Packs/Day Years [...] on filedocumented in this encounter Care Teams Mangle Roller Relationship Specialty Start Date End Date Laura Hidalgo APRN [address] [place] [address] PCP - General Internal Medicine 08/16/16 documented as of this encounter
--- OUTSIDE RECORDS SUMMARY | 2023-12-27 01:03 | XMS_ITS | Encounter Summary ---
[place] [address] Care Team Providers Care Skid Adzer Name Role Phone Laura Hidalgo APRN Primary Care Provider [phone] Reason for Referral * Consultation (Routine) - Duplicate Referral Specialty Diagnoses / Procedures Referred By Jay ireland Referred To Contact [facility] Diagnoses Obesity, unspecified classification, unspecified obesity type, unspecified whether serious comorbidity present Mady Reyes MD [facility] [place] [address] [facility] [address] [place] [address] Referral ID Status Reason Start Date Expiration Date Visits Requested Visits Authorized [id number] Duplicate Referral Consult, Test & Treat 06/16/2021 06/16/2022 1 1 Encounter Details Date Type Department Care Team (Latest Contact Info) Description 06/16/2021 10:00 AM EST TH Visit (TeleHealth) [place] [address] Mady Reyes MD [facility] [place] [address] Intractable migraine without status migrainosus, unspecified migraine type; Chronic pain of right knee; Obesity, unspecified classification, unspecified obesity type, unspecified [...] as of this encounter Progress Notes * Mady Reyes MD - 06/16/2021 10:00 AM EST Neurology clinic note Chief Complaint: Headaches, stroke, and hemiparesis. History: The patient was contacted by Telehealth. The patient is aware that this is a remote visit comparable to an office visit, and that a service charge is generated. The patient would like to proceed withthe conversation. As noted earlier, she had loss of [...] equivalent. I spoke with her neurologist in [place] Dr. Thomson whom I know well. CT [...] Interval history: As of 2021 she is doing quite well. Headaches are under good control. She still has urinary urgency but does not feel it requires treatment. She had surgery on her ankle and foot for heel cord lengthening and nerve entrapment. She is still having pain but feels she has better mobility. She is going to be treated for osteoporosis. She wants to enroll in a weight loss program. Past medical history: Patient Active Problem List [...] disability Physical Exam: As this is a telehealth visit, examination was limited. She is mentally at baseline and speech was clear. Cranial nerves were grossly intact and unchanged except for vision loss on the left and external deviation of the right eye. She has hearing loss on the left as previously noted. She has a stable hemiparesis. Gait was unchanged. Previous data are given below. BP 107/63 Pulse 84 Ht 147.3 cm [...] in this regard to her PCP. She wanted to be referred to the weight loss program here and I have done that. They will consider a variety of modalities including bariatric surgery. 6. She has neurogenic bladder related to history of cerebral palsy. Urinalysis was unremarkable andultrasound of kidneys and bladder was also unremarkable. She feels the problem is not bad enough torequire additional medical therapy and it is reasonable to leave that issue alone for now. Thank you for this consultation. I will see her back in 6 months or sooner if necessary Mady Reyes [place] [address] Pager: [phone], #[phone] Email: CC: Laura Hidalgo APRN documented in this encounter Miscellaneous Notes * Addendum Note - Mady Reyes MD - 06/16/2021 10:00 AM ESTAddended by: MADY REYES on: 06/16/2021 11:04 AM Modules accepted: Orders documented in this encounter Plan of Treatment Scheduled Referrals Name Type Priority Associated Diagnoses Orde r Schedule Referral to [facility] Outpatient Referral Routine Obesity, unspecified classification, unspecified obesity type, unspecified whether serious comorbidity present Ordered: 06/16/2021 documented as of this encounter Visit Diagnoses Diagnosis Intractable migraine without status migrainosus, unspecified migraine type Chronic pain of right knee Obesity, unspecified classification, unspecified obesity type, unspecified whether serious comorbidity present documented in this encounter Care Teams Skid Adzer Relationship Specialty Start Date End Date Laura Hidalgo APRN [address] [place] [address] PCP - General Internal Medicine 08/16/16 documented as of this encounter
--- OUTSIDE RECORDS SUMMARY | 2023-12-27 01:04 | XMS_ITS | Encounter Summary ---
Author Organization [facility] [place] [address] Care Team Providers Care Eye Glass Frame Polisher Name Role Phone Chelsy Abbasi APRN Primary Care Provider [phone] Reason for Visit * Auth/Cert Specialty Diagnoses / Procedures Referred By Jay ireland Referred To Contact Diagnoses Extensor tendon subluxation left hand Procedures PRO TRANSPLANT HAND TENDON TRANSFER OR TRANSPLANT TENDON, CARPOMETACARPAL AREA OR DORSUM OF HAND W/O FREE GRAFT, EA Referral ID Status Reason Start Date Expiration Date Visits Re quested Visits Authorized [id number] 1 1 Encounter Details Date Type Department Care Team (Latest Contact Info) Description 12/26/2015 10:04 AM EDT - 12/26/2015 3:27 PM EDT Hospital Encounter [place] [address] Emery Ortiz MD [facility] [place] [address] Discharge Disposition: Home Social History Tobacco Use Types Packs/Day Years Used Date Smoking Tobacco: Never Smokeless Tobacco: Never Alcohol Use Standard Drinks/Week Comments No 0 (1 standard drink = 0.6 oz pur e alcohol) Sober since 2002. Sex and Gender Information Value Date Recorded Sex Assigned at Female 12/11/2020 8:51 PM EDT Gender Identity Female 05/18/2021 7:21 PM EST Sexual Orientation Straight 05/18/2021 7: 21 PM EST documented as of this encounter Last Filed Vital Signs Vital Sign Reading Time Taken Comments Blood Pressure 117/67 12/26/2015 2:45 PM EDT Pulse 76 12/26/2015 2:53 PM EDT Temperature 36.2 ??C (97.2 ??F) 12/26/2015 2:22 PM ED T Respiratory Rate 16 12/26/2015 2:22 PM EDT Oxygen Saturation 99% 12/26/2015 2:53 PM EDT Inhaled Oxygen Concentration - - Weight 88.9 kg (196 lb) 12/26/2015 10:39 AM EDT Height 152.4 cm (5') 12/26/2015 10:39 AM EDT Body Mass Index 38.28 12/26/2015 10:39 AM EDT documented in this encounter Discharge Instructions * Discharge Instructions* Frank Styles, RN - 12/26/2015 2:39 PM EDT You received nsaid medication at 1:45 pm. Your next dose should not be taken before 7:45 pm today. General Anesthesia Discharge Instructions Go home and rest. You may be sleepy for several hours. Take it easy as sudden position changes may cause nausea and/or dizziness. Use caution on stairs. Follow a light to regular diet as tolerated today. If nausea occurs, start with clear liquids, and progress slowly to a regular diet. Do not drive, operate machinery, drink alcoholic beverages or make any legal decisions after havinggeneral anesthesia. The medications given change your reaction time and alter your judgement. IV site -- slight redness is normal, you can use warm compresses. If tenderness and redness increases or foul drainage occurs, please contact your M.D. Patients who have had endotracheal tubes/LMA (tubes used by the anesthesia staff to ensure a safe airway during your operation) may have a sore throat. This is normal and cold liquids or soothing lozengers will help ease this discomfort. Narcotic pain medications can cause constipation, please ask the surgeons office what they recommend for prevention of this. Some non-pharmaceutical means of constipation prevention include increasing intake of fluids, eating more fruits and vegetables as well as fruit juices. If you are uncomfortable and/or unable to urinate within 8 hours of discharge and it is before 5 pm, call your physician. If it is after 5pm go to the closest emergency room or call the hospital process equipment operator at [phone] and ask for physician parks recreation director covering for your physician. Questions or problems after 5pm or on a weekend: Call the [facility] process equipment operator at and ask for the physician parks recreation director covering for your doctor. Upper Extremity Nerve Block Nerve blocks affect many types of nerves. The affected nerves control movement, pain, and normal sensation. This causes feelings such as: ?? Weakness ?? Numbness ?? Tingling ?? Heaviness ?? A feeling that your arm has fallen asleep. A nerve block can last from about 2 to 48 hours, depending on the medications used. Usually the weakness wears off first, then you will feel a numb or tingly sensation. Finally, the pain may come back. This can happen in any order. If you had a shoulder block, you may have other symptoms such as: 1. Mild shortness of breath 2. A hoarse voice 3. Blurry vision 4. Unequal pupils 5. Drooping of your face on the same side as the nerve block. These are common and expected side effects of this type of nerve block. Symptoms usually go away within 12 hours. If these symptoms do not go away, please call the Anesthesiology Department at . If you have severe or prolonged shortness of breath, please go to the nearest emergency department. If you continue to feel the effects of the nerve block for longer than 48 hours, please call the Anesthesiology department at . Pain Medication If needed, your surgeon will give you a prescription for pain medication. Start taking this medication before the nerve block wears off. Nerve blocks sometimes wear off during the night. It is a goodidea to take your pain medicine as prescribed before going to sleep so you won't wake up with pain.The idea is to have pain medicine in your body before the nerve block wears off. To help prevent nausea, eat something before taking the pain medicine. Once a nerve block starts to wear off, it is usually completely gone within 60 minutes. It is important to have pain medicine in your system before the block wears off completely. Helpful tips to protect the part of your body that is numb. After a nerve block, you cannot feel pain, pressure, or extremes in temperature. Because your arm is numb, it is more at risk for injury. Therefore.... ?? While you are awake, try to change positions of your arm often. This will help you avoid puttingtoo much pressure on the limb for long periods of time. ?? While sleeping, pad the blocked limb with pillows to avoid placing too much pressure on the limb. ?? If you have a cast or a tight dressing, check the color of your fingers every couple of hours. Call your doctor if any look discolored. ?? If you had a shoulder, arm, or hand nerve block, you may go home with a sling. The sling will help to keep your arm in the ideal position. Wear the sling at all times until feeling returns. If youdo not have a sling, watch the position of the blocked arm to make sure it is in a safe location. ?? Ask your family or support people to help with the above hints. QUESTIONS? Please call the Anesthesiology department at with concerns or after hours and ask for the anesthesiologist parks recreation director. * Patient Instructions* Tab Mendoza - 12/26/2015 2:24 PM EDT Surgery: Extensor tendon and trigger finger release, left hand Activity: You should move your fingers to avoid stiffness Diet: You may eat a regular diet as tolerated. Driving: No, not until you are cleared to do so by your Orthopedic clinic. Ideally you should not drive while you are on narcotic pain meds as these can affect judgement and reaction time. Call your Surgeon with any questions. Medications: 1. The pain medication you are on can cause constipation so increase your intake of fluids and fiber while you are on them. You can also take an [id number] stool softener, colace or senna, to facilitate a bowel movement. 2. If you need a renewal on your narcotic pain medication, you need to give the Orthopedic clinic enough time to process your request. This can take up to three days, so plan accordingly. 3. You should take tylenol while you are requiring narcotic pain medication Wound: Keep dressing on until follow-up. Keep dressing clean and dry. Follow-up: As below, or in 10-14 days with xrays out of splint/cast prior to the appointment Call the clinic (#[phone]) if (Mon-Fri 8am-5pm): 1. You have a fever > 101.5 or experience chills ??? Increased discharge from the incision ??? Any redness or swelling around the incision ??? Increased pain or change in the pain that is not controlled by your pain meds WHERE TO CALL WITH QUESTIONS OFF HOURS [facility] Ask for the resident parks recreation director for your provider Future Appointments Date Time Provider Department Center 01/07/2016 3:25 PM Emery Ortiz MD [facility] 02/19/2016 2:30 PM Julio Welsh MD [facility] documented in this encounter Medications at Time of Discharge Medication Sig Dispensed Refills Start Date End Date valACYclovir (VALTREX) 500 mg tablet Take 500 mg by mouth daily. 12/24/2010 raloxifene (EVISTA) 60 mg tablet Take 60 mg by mouth daily. 12/05/2023 topiramate (TOPAMAX) 25 mg Tablet take 2 tablets by mouth twice a day 120 tablet 5 11/05/2015 05/05/2016 baclofen (LIORESAL) 10 mg Tablet Take 1 tablet by mouth 4 times daily. 120 tablet 11 08/19/2015 02/10/2016 cyanocobalamin 1,000 mcg Tablet Take 1,000 mcg by mouth daily. 11/07/2017 meloxicam (MOBIC) 7.5 mg Tablet Take 1 tablet by mouth daily. 30 tablet 5 08/11/2015 02/03/2016 amitriptyline (ELAVIL) 50 mg Tablet take 1 tablet by mouth every evening 30 tablet 5 07/08/2015 01/04/2016 PROAIR HFA 90 mcg/actuation HFA Aerosol Inhaler INHALE 2 PUFFS INTO THE LUNGS DAILY NEEDED FOR WHEEZING, USE WITH SPACER 8.5 g 11 04/08/2015 12/02/2016 naproxen sodium (ANAPROX) 550 mg tablet Take 1 tablet by mouth 2 times daily as needed. 60 tablet 12 07/10/2012 08/16/2016 CALCIUM CARBONATE (TUMS ORAL)Indications:Migrai ne Take 1 tablet by mouth daily. 11/07/2017 aspirin 325 mg tablet Take 325 mg by mouth daily. 11/07/2017 documented as of this encounter Progress Notes * Ada Ruvalcaba RN - 12/26/2015 3:23 PM EDT Discharge instructions and medications reviewed with patient and escort Isidro. All questions answered and written copy sent home with patient. Albuterol nebulizer given with good effect. documented in this encounter H&P Notes * Emery Ortiz MD - 12/26/2015 11:13 AM EDT Patient Name: Yuli Romero Patient Age: 40 y.o. Birthdate: 1975 Admit date: 12/26/2015 Attending Physician: Emery Ortiz MD I interviewed and examined Yuli Romero. There have been no apparent interval changes in her health status since the most recent history and physical was done. EMERY ORTIZ MD * Emery Ortiz MD - 12/25/2015 2:39 PM EDT Patient Name: Yuli Romero Patient Age: 40 y.o. Birthdate: 1975 Admit date: (Not on file) Attending Physician: Emery Ortiz MD See scanned document for pre-procedural H&P completed on 12/11/15. documented in this encounter Miscellaneous Notes * Op Note - Emery Ortiz MD - 12/26/2015 2:[address] 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 POSTOPERATIVE DIAGNOSIS: Extensor tendon snapping and subluxation due to aberrant extensor tendon, left small finger, and flexor sheath triggering left small finger. PROCEDURES PERFORMED: Realignment of extensor tendon, left small finger and A1 dana release, left small finger. ANESTHESIA: Forearm block plus sedation as well as local field infiltration. OPERATIVE INDICATION: The patient is a 40-year-old female who presents with subluxing and snapping at the MCP level of her left small finger. She was found to have an aberrant extensor tendon causing this dorsally. This was treated with release and realignment of the aberrant extensor tendon at the MCP joint. She also was found to have triggering at the A1 dana level, which was less significant but still problematic after her extensor tendon work was completed. This was managed with A1 dana release in her left small finger. SUMMARY OF PROCEDURE: After 2 g of intravenous cefazolin were administered and a forearm level ulnar nerve block was done, the patient's left upper extremity was prepped with a Hibiclens scrub and a ChloraPrep. Her left upper extremity was draped in the usual sterile fashion. A preoperative timeout was performed as per [facility] protocol. Her left arm was then exsanguinated with an Esmarch bandage. A brachial tourniquet was inflated to 250 mmHg. An incision was then made over the dorsum of her left hand between the distal part of the 4th and 5th metacarpals. Subcutaneous spreading was performed. Hemostasis was achieved with electrocautery. Care was taken to avoid injury to subcutaneous nerves. The extensor mechanism was carefully evaluated. The patient was found to have both an extensor digiti minimi plus an extensor digitorum communis tendon to the small finger. Additionally, she had multiple extensor digitorum communis tendons to the ring finger. There was also an accessory extensor that passed between one of the extensor digitorum communis tendons to the extensor digitorum communis tendon of the small finger with the very distal takeoff of this tendon such that it was very distal and nearly transverse in location. As the patient flexed her small finger, this aberrant tendon band snapped over the radial portion of the 5th metacarpal head. This was released at its distal insertion site on the EDC tendon of the small finger, and the patient was asked to bring her fingers through range of motion. She could do so. With correction of the extensor mechanism snapping, she did have a small residual catch at the A1 dana level, but the majority of the problem had been corrected. She still complained about significant pain over the palmar side of the hand at the A1 dana level catching. The dorsal incision site was copiously irrigated. 10 mL of 1% lidocaine with epinephrine was then infiltrated around the dorsal incision site.The tourniquet was released with a tourniquet time of 14 minutes. All digits became pink and warm with brisk capillary refill, and the tourniquet was not reinflated throughout the remainder of this procedure. The aberrant tendon was then sewn back to the EDC tendon of the ring finger distally using 3-0 FiberWire. The dorsal incision site was copiously irrigated. A1 dana release of the small finger was then done. The area over the A1 dana was infiltrated with 3 mL of 1% lidocaine with epinephrine. No tourniquet was used. An incision was made through an existing crease at this level. Subcutaneous spreading was performed in the palmar midline, and with blunt dissection, I was able to expose the A1 dana of the small finger. It was released over its entire course, and synovium was debrided between the FDS and FDP tendons. The site was copiously irrigated. The patient was then asked to move her fingers, and all triggering, catching and snapping had been now Completely corrected. This site was copiously irrigated. It was closed with 4-0 nylon suture. The dorsal site was again irrigated and closed with 4-0 nylon suture. Sterile soft dressings were applied. She was then transferred to the recovery room in stable condition. Estimated blood loss was none. IV replacement was 600 mL of crystalloid. She tolerated the procedures well without apparent complications. Extensor tendon subluxation due to aberent tendon and flexor sheath triggering left small finger Attestation: Case Date: 12/26/2015 I was present and I participated during the entire procedure. EMERY ORTIZ MD 12/26/2015 * Brief Op Note - Emery Ortiz MD - 12/26/2015 2:32 PM EDT Brief Operative Note Patient Name: Yuli Romero : [id number] MR#: [id number] Case Date: 12/26/2015 Surgeon: Surgeon(s) and Role: * Emery Ortiz MD - Primary * Tab Mendoza MD - Resident Preoperative diagnosis: Extensor tendon subluxation due to aberent tendon Postoperative diagnosis: Extensor tendon subluxation due to aberent tendon and flexor sheath triggering left small finger Procedure(s): TRANSFER OR TRANSPLANT TENDON, CARPOMETACARPAL AREA OR DORSUM OF HAND W/O FREE GRAFT, EA TENDON SHEATH INCISION (TRIGGER FINGER) Anesthesia: MAC /forearm nerve block Complications: None Fluids: 600 cc crystalloid Estimated Blood Loss: * No values recorded between 12/26/2015 1:30 PM and 12/26/2015 2:18 PM * Drains: None Disposition: aroused from sedation, and taken to the recovery room in a stable condition Condition: doing well without problems Attestation: Case Date: 12/26/2015 I was present and I participated during the entire procedure. (Please see the Surgical Encounter Summary for any Implant and Specimen details pertinent to this patient.) documented in this encounter Plan of Treatment Not on file documented as of this encounter Procedures Procedure Name Priority Date/Time Associated Diagnosis Comments TENDON SHEATH INCISION (TRIGGER FINGER) Routine 12/26/2015 2:14 PM EDT TENDON SHEATH INCISION (TRIGGER FINGER) (WRVU 3.11) 12/26/2015 1:14 PM EDT Extensor tendon subluxation left hand TRANSFER OR TRANSPLANT TENDON, CARPOMETACARPAL AREA OR DORSUM OF HAND W/O FREE GRAFT, EA (WRVU 6.9) 12/26/2015 1:14 PM EDT Extensor tendon subluxation left hand documented in this encounter Visit Diagnoses Not on filedocumented in this encounter Administered Medications Inactive Administered Medications - up to 3 most recent administrations Medication Order MAR Action Action Date Dose Rate Site albuterol (PROVENTIL) nebulizer solution 2.5 mg 2.5 mg, Nebulization, EVERY 6 HOURS PRN, Starting on Tue12/26/15 at 1441, Until Tue12/26/15 at 1730, Wheezing, Routine Given 12/26/2015 2:50 PM EDT 2.5 mg fentaNYL (PF) 50 mcg/mL 2mL syringe 25 mcg, Intravenous, EVERY 5 MIN PRN, Pain, for 1-4 pain score, Starting on Tue12/26/15 at 1441, Until Tue12/26/15 at 1730, for 1-4 pain score Hold for respiratory rate less than 10 per minute. Maximum dose: 250 mcg over one hour., PACU Recovery fentaNYL (PF) 50 mcg/mL 2mL syringe 50 mcg, Intravenous, EVERY 5 MIN PRN, Pain, for 5-10 pain score, Starting on Tue12/26/15 at 1441, Until Tue12/26/15 at 1730, for 5-10 pain score Hold for respiratory rate less than 10 per minute. Maximum dose: 250 mcg over one hour., PACU Recovery lactated ringers infusion 1,000 mL 1,000 mL, at 100 mL/hr, Intravenous, CONTINUOUS, Starting on Tue12/26/15 at 1100, Until Tue12/26/15 at 1730, Day of Surgery (Day of Procedure) New Bag 12/26/2015 11:15 AM EDT 1,000 mLs 100 mL/hr lidocaine (XYLOCAINE) 10 mg/mL (1 %) injection 3 mg 3 mg (0.3 mL), Subcutaneous, ONCE PRN, 1 dose, Starting on Tue12/26/15 at 1042, Until Tue12/26/15 at 1730, for discomfort with PIV insertion, Day of Surgery (Day of Procedure), Routine midazolam (PF) (VERSED) 1 mg/mL injection 1-4 mg 1-4 mg, Intravenous, ONCE, 1 dose, On Tue12/26/15 at 1130, Routine Given 12/26/2015 12:12 PM EDT 1 mg midazolam (PF) (VERSED) 1 mg/mL injection 1 dose, Starting on Tue12/26/15 at 1109, Until Tue12/26/15 at 1212, FRANK STYLES: cabinet override oxyCODONE (ROXICODONE) immediate release tablet 5 mg 5 mg, Oral, EVERY 4 HOURS PRN, Starting on Tue12/26/15 at 1422, Until Tue12/26/15 at 1730, Pain, Routine Given 12/26/2015 2:57 PM EDT 5 mg sodium chloride 0.9 % flush 5-20 mL 5-20 mL, Intravenous, EVERY 1 MIN PRN, Starting on Tue12/26/15 at 1042, Until Tue12/26/15 at 1730, flush, Flush pertains to all indwelling lines. Flush per protocol found in the job aid using the link provided on this medication record., Day of Surgery (Day of Procedure), Routine documented in this encounter Active and Recently Administered Medications Times are shown in EDT. Scheduled Medication Order 12/24/2015 12/25/2015 12/26/2015 ceFAZolin (ANCEF) 2,000 mg in sodium chloride 0.9% 56.06 mL 2,000 mg (2 g), Intravenous, EVERY 3 HOURS, 1 dose, First dose on Tue12/26/15 at 1100, Administer over 30 Minutes, Redose after 3 hours., Intra-Operative (Intra-Procedure), Indication for (Active or Suspected): Prophylaxis 1100 (Due) midazolam (PF) (VERSED) 1 mg/mL injection 1-4 mg (COMPLETED) 1-4 mg, Intravenous, ONCE, 1 dose, On Tue12/26/15 at 1130, Routine 1130 (Due)1212 (Give n - Provider: Frank Styles RN - Comment: Block delayed, waiting provider) Continuous Medication Order 12/24/2015 12/25/2015 12/26/2015 lactated ringers infusion 1,000 mL 1,000 mL, at 100 mL/hr, Intravenous, CONTINUOUS, Starting on Tue12/26/15 at 1100, Until Tue12/26/15 at 1730, Day of Surgery (Day of Procedure) 1115 (New Bag - Prov ider: Ralph Link RN)1339 (Anesthesia Volume Adjustment - Provider: Lilo Carrillo CRNA) PRN Medication Order 12/24/2015 12/25/2015 12/26/2015 albuterol (PROVENTIL) nebulizer solution 2.5 mg 2.5 mg, Nebulization, EVERY 6 HOURS PRN, Starting on Tue12/26/15 at 1441, Until Tue12/26/15 at 1730, Wheezing, Routine 1450 (Given - Provid er: Ada Ruvalcaba RN) fentaNYL (PF) 50 mcg/mL 2mL syringe(Linked Group 1) 25 mcg, Intravenous, EVERY 5 MIN PRN, Pain, for 1-4 pain score, Starting on Tue12/26/15 at 1441, Until Tue12/26/15 at 1730, for 1-4 pain score Hold for respiratory rate less than 10 per minute. Maximum dose: 250 mcg over one hour., PACU Recovery fentaNYL (PF) 50 mcg/mL 2mL syringe(Linked Group 1) 50 mcg, Intravenous, EVERY 5 MIN PRN, Pain, for 5-10 pain score, Starting on Tue12/26/15 at 1441, Until Tue12/26/15 at 1730, for 5-10 pain score Hold for respiratory rate less than 10 per minute. Maximum dose: 250 mcg over one hour., PACU Recovery lidocaine (XYLOCAINE) 10 mg/mL (1 %) injection 3 mg 3 mg (0.3 mL), Subcutaneous, ONCE PRN, 1 dose, Starting on Tue12/26/15 at 1042, Until Tue12/26/15 at 1730, for discomfort with PIV insertion, Day of Surgery (Day of Procedure), Routine lidocaine-EPINEPHrine 1 %-1:200,000 injection (CANCELED) ONCE PRN, Starting on Tue12/26/15 at 1348, Until Tue12/26/15 at 1730, Intra-Operative (Intra-Procedure), Routine 1348 (Given - Provid er: Emery Ortiz MD - Comment: Left 5th finger, 1:100,000 used,)1356 (Given - Provider: Emery Ortiz MD - Comment: Left 5th finger, 1:100,000 used,)1404 (Given - Provider: Emery Ortiz MD - Comment: Right palm,) oxyCODONE (ROXICODONE) immediate release tablet 5 mg 5 mg, Oral, EVERY 4 HOURS PRN, Starting on Tue12/26/15 at 1422, Until Tue12/26/15 at 1730, Pain, Routine 1457 (Given - Provid er: Ada MacPhail, RN) promethazine (PHENERGAN) injection 12.5 mg 12.5 mg, Intravenous, EVERY 30 MIN PRN, Nausea, Starting on Tue12/26/15 at 1441, 2 doses, Until Tue12/26/15 at 1730, If multiple antiemetics ordered, use ondansetron first and if ineffective use prochlorperazine second and if ineffective use promethazine, PACU Recovery sodium chloride 0.9 % flush 5-20 mL 5-20 mL, Intravenous, EVERY 1 MIN PRN, Starting on Tue12/26/15 at 1042, Until Tue12/26/15 at 1730, flush, Flush pertains to all indwelling lines. Flush per protocol found in the job aid using the link provided on this medication record., Day of Surgery (Day of Procedure), Routine No Frequency Medication Order 12/24/2015 12/25/2015 12/26/2015 ceFAZolin (ANCEF) 2 gram/50 mL infusion (COMPLETED) 1 dose, Starting on Tue12/26/15 at 1048, Until Tue12/26/15 at 1322, RALPH LINK: cabinet override 1322 (Given - Provid er: Lilo Carrillo CRNA) Linked Groups Order Group 1: fentaNYL (PF) 50 mcg/mL 2mL syringeJump to med 25 mcg, Intravenous, EVERY 5 MIN PRN, Pain, for 1-4 pain score, Starting on Tue12/26/15 at 1441, Until Tue12/26/15 at 1730, for 1-4 pain score Hold for respiratory rate less than 10 per minute. Maximum dose: 250 mcg over one hour., PACU Recovery Or fentaNYL (PF) 50 mcg/mL 2mL syringeJump to med 50 mcg, Intravenous, EVERY 5 MIN PRN, Pain, for 5-10 pain score, Starting on Tue12/26/15 at 1441, Until Tue12/26/15 at 1730, for 5-10 pain score Hold for respiratory rate less than 10 per minute. Maximum dose: 250 mcg over one hour., PACU Recovery documented in this encounter Care Teams Eye Glass Frame Polisher Relationship Specialty Start Date End Date Chelsy Abbasi APRN [address] [place] [address] PCP - General General Internal Medicine 08/11/1508/04 documented as of this encounter
--- OUTSIDE RECORDS SUMMARY | 2023-12-27 01:04 | XMS_ITS | Encounter Summary ---
Author Organization [facility] Address [facility] [place] [address] Care Team Providers Care Research Instructor Name Role Phone Laura Hidalgo APRN Primary Care Provider [phone] Encounter Details Date Type Department Care Team (Latest Contact Info) Description 02/16/2017 10:06 AM EDT - 02/16/2017 11:59 PM EDT Hospital Encounter XRay at [address] [place] [address] Julio Welsh MD [facility] [address] Chronic pain of right knee Discharge Disposition: Home Social History Tobacco Use [...] Sig Dispensed Refills Start Date End Date albuterol (PROAIR HFA) 90 mcg/actuation HFA Aerosol Inhaler INHALE 2 PUFFS INTO THE LUNGS DAILY NEEDED FOR WHEEZING, USE WITH SPACER. 8.5 g 5 12/02/2016 valACYclovir (VALTREX) 500 mg tablet Take 500 mg by mouth daily. 12/24/2010 raloxifene (EVISTA) 60 mg tablet Take 60 mg by mouth daily. 12/05/2023 meloxicam (MOBIC) 7.5 mg Tablet take 1 tablet by mouth daily. 30 tablet 5 01/31/2017 07/10/2017 baclofen (LIORESAL) 10 mg Tablet Take 1 tablet by mouth 4 times daily. 120 tablet 5 01/31/2017 07/10/2017 amitriptyline (ELAVIL) 50 mg Tablet take 1 tablet by mouth every evening 30 tablet 5 12/31/2016 06/29/2017 topiramate (TOPAMAX) 25 mg Tablet take 2 tablets by mouth twice a day. 120 tablet 5 11/02/2016 05/02/2017 multivitamin (THERAGRAN) Tablet Take 1 tablet by mouth daily. 06/09/2021 naproxen sodium (ANAPROX) 550 mg Tablet Take 1 tablet by mouth 2 times daily as needed. 30 tablet 11 08/16/2016 10/22/2020 cyanocobalamin 1,000 mcg Tablet Take 1,000 mcg by mouth daily. 11/07/2017 CALCIUM CARBONATE (TUMS ORAL)Indications:Migrai ne Take 1 tablet by mouth daily. 11/07/2017 aspirin 325 mg tablet Take 325 mg by mouth daily. 11/07/2017 documented as of this encounter Plan of Treatment Not on file documented as of this encounter Procedures Procedure Name Priority Date/Time Associated Diagnosis Comments XR KNEE AP & LAT RIGHT Routine 02/16/2017 10:48 AM EDT Chronic pain of right knee documented in this encounter Results * XR Knee 1-2 Views Right (Generic) (02/16/2017 10:48 AM EDT) Anatomical Region Laterality Modality Knee Right Digital Radiogra phy Impressions 02/16/2017 1:23 PM EDT No acute osseous abnormality is identified. Narrative 02/16/2017 1:23 PM EDT EXAMINATION: XR KNEE 1-2 VIEWS RIGHT (GENERIC) CLINICAL HISTORY: pain and probable joint effusion. TECHNIQUE: Frontal and lateral views. COMPARISON: None FINDINGS: No fracture or dislocation is identified. The joint spaces are preserved. No joint effusion is seen. Procedure Note Ant Glover MD - 02/16/2017 EXAMINATION: XR KNEE 1-2 VIEWS RIGHT (GENERIC) CLINICAL HISTORY: pain and probable joint effusion. TECHNIQUE: Frontal and lateral views. COMPARISON: None FINDINGS: No fracture or dislocation is identified. The joint spaces are preserved.No joint effusion is seen. IMPRESSION No acute osseous abnormality is identified. Julio Welsh MD IMG DX ORDERABLES documented in this encounter Visit Diagnoses Diagnosis Chronic pain of right knee documented in this encounter Care Teams Research Instructor Relationship Specialty Start Date End Date Laura Hidalgo, GUNNER [address] [address] PCP - General Internal Medicine 08/16/16 documented as of this encounter
--- OUTSIDE RECORDS SUMMARY | 2023-12-27 01:04 | XMS_ITS | Encounter Summary ---
Author Organization [facility] Address [facility] [place] [address] Care Team Providers Care Swaging Machine Adjuster Name Role Phone Laura Hidalgo APRN Primary Care Provider [phone] Encounter Details Date Type Department Care Team (Late st Contact Info) Description 04/13/2017 Orders [place] [address] Olena Sandhu PA [facility] DR [place] [address] Social History Tobacco Use Types Packs/Day Years [...] on filedocumented in this encounter Care Teams Swaging Machine Adjuster Relationship Specialty Start Date End Date Laura Hidalgo APRN [address] [place] [address] PCP - General Internal Medicine 08/16/16 documented as of this encounter
--- OUTSIDE RECORDS SUMMARY | 2023-12-27 01:04 | XMS_ITS | Encounter Summary ---
Author Organization [facility] [place] [address] Care Team Providers Care Center Rep Name Role Phone Laura Hidalgo APRN Primary Care Provider [phone] Reason for Visit * Reason Comments Medication Refill Encounter Details Date Type Department Care Team (Late st Contact Info) Description 10/31/2017 [place] [address] Julio Welsh MD [facility] [place] [address] Social History Tobacco Use Types Packs/Day Years [...] on filedocumented in this encounter Care Teams Center Rep Relationship Specialty Start Date End Date Laura Hidalgo APRN [address] [place] [address] PCP - General Internal Medicine 08/16/16 documented as of this encounter
--- OUTSIDE RECORDS SUMMARY | 2023-12-27 01:04 | XMS_ITS | Encounter Summary ---
Author Organization [facility] [place] [address] Care Team Providers Care Cytogenetics Laboratory Manager Name Role Phone Laura Hidalgo APRN Primary Care Provider [phone] Reason for Visit * Reason Onset Date Comments Medication Refill 12/31/2016 Encounter Details Date Type Department Care Team (Late st Contact Info) Description 12/31/2016 [place] [address] Julio Welsh MD [facility] [place] [address] Social History Tobacco Use Types Packs/Day Years [...] on filedocumented in this encounter Care Teams Cytogenetics Laboratory Manager Relationship Specialty Start Date End Date Laura Hidalgo APRN [address] [place] [address] PCP - General Internal Medicine 08/16/16 documented as of this encounter
--- OUTSIDE RECORDS SUMMARY | 2023-12-27 01:04 | XMS_ITS | Encounter Summary ---
Author Organization [facility] [place] [address] Care Team Providers Care Brick Burner Name Role Phone Laura Hidalgo APRN Primary Care Provider [phone] Reason for Visit * Reason Onset Date Comments Medication Refill 12/02/2016 Encounter Details Date Type Department Care Team (Late st Contact Info) Description 12/02/2016 [place] [address] Julio Welsh MD [facility] [place] [address] Social History Tobacco Use Types Packs/Day Years [...] on filedocumented in this encounter Care Teams Brick Burner Relationship Specialty Start Date End Date Laura Hidalgo APRN [address] [place] [address] PCP - General Internal Medicine 08/16/16 documented as of this encounter
--- OUTSIDE RECORDS SUMMARY | 2023-12-27 01:04 | XMS_ITS | Encounter Summary ---
Author Organization [facility] [place] [address] Care Team Providers Care Supervisor Shipping Room Name Role Phone Chelsy Abbasi APRN Primary Care Provider [phone] Reason for Visit * Reason Onset Date Comments Medication Refill 08/03/2016 Encounter Details Date Type Department Care Team (Late st Contact Info) Description 08/03/2016 [place] [address] Julio Welsh MD [facility] [address] Social History Tobacco Use Types Packs/Day Years [...] on filedocumented in this encounter Care Teams Supervisor Shipping Room Relationship Specialty Start Date End Date Chelsy Abbasi APRN [address] [place] [address] PCP - General General Internal Medicine 08/11/1508/04 documented as of this encounter
--- OUTSIDE RECORDS SUMMARY | 2023-12-27 01:04 | XMS_ITS | Encounter Summary ---
Author Organization [facility] [place] [address] Care Team Providers Care Printing Screen Assembler Name Role Phone Chelsy Abbasi APRN Primary Care Provider [phone] Reason for Visit * Reason Onset Date Comments Medication Refill 02/06/2016 PA NOT NEEDED FOR BACLOFEN Encounter Details Date Type Department Care Team (Late st Contact Info) Description 02/06/2016 Ref[place] [address] Julio Welsh MD [facility] [place] [address] Social History Tobacco Use Types Packs/Day Years [...] encounter Miscellaneous Notes * Telephone Encounter - Wyatt Loya RN - 02/10/2016 2:34 PM EDT Pharmacy requesting medication refill. Last appt 08/18 Next appt 02/18 * Telephone Encounter - Conchita Cavazos - 02/10/2016 2:14 PM EDT PER INSURANCE PA NOT NEEDED FOR BACLOFEN. REJECTION AT PHARMACY: REFILL NUMBER [id number] EXCEEDS REFILL LIMITS. PHARMACY NEEDS NEW SCRIPT. TRACKING #: [id number] * Telephone Encounter - Nathalie Jolly RN - 02/06/2016 10:47 AM EDT Faxed baclofen PA to [facility] at [phone]. documented in this encounter Plan of Treatment Not on file documented as of this encounter Visit Diagnoses Not on filedocumented in this encounter Care Teams Printing Screen Assembler Relationship Specialty Start Date End Date Chelsy Abbasi, TUFTING CREELER [address] [place] [address] PCP - General General Internal Medicine 08/11/1508/04 documented as of this encounter
--- OUTSIDE RECORDS SUMMARY | 2023-12-27 01:04 | XMS_ITS | Encounter Summary ---
Author Organization [facility] [place] [address] Care Team Providers Care Finishing Range Supervisor Name Role Phone Laura Hidalgo APRN Primary Care Provider Encounter Details Date Type Department Care Team (Late st Contact Info) Description 11/07/2017 3:00 PM EDT Office [place] [address] Julio Welsh MD [facility] [place] [address] Intractable migraine with aura without status migrainosus [...] Sign Reading Time Taken Comments Blood Pressure 114/65 11/07/2017 3:10 PM EDT Pulse 89 11/07/2017 3:10 PM EDT Temperature - - Respiratory Rate - - Oxygen Saturation - - Inhaled Oxygen Concentration - - Weight 90.7 kg (200 lb) 11/07/2017 3:10 PM EDT Height 147.3 cm (4' 10) 11/07/2017 3:10 PM EDT Body Mass Index 41.8 11/07/2017 3:10 PM EDT documented in this encounter Patient Instructions * Patient Instructions* Julio Welsh MD - 11/07/2017 3:00 PM EDT I think you are doing about the same overall The recent symptoms sound like an atypical migraine, but also I think could represent side effects of too many medicines We went over your medicine list to simplify. Please continue to use the Naprosyn as needed for bad headaches You may use the hydroxyzine as needed for bad dizziness. In general I think you are overmedicated and should take less rather than more medicines on a dailybasis. With the cut-backs we are making, I think you should feel better. I think seeing a construction administrator for a weight loss diet, and also starting an exercise program would be a good idea. Please call me in 2 weeks. I would like to see you in February as scheduled, but will be happy to see you sooner as needed. Julio Welsh MD Department [place] [address] Pager: [phone], #[phone] Email: [email or web address] documented in this encounter Progress Notes * Julio Welsh MD - 11/07/2017 3:00 PM EDT Neurology clinic note Chief [...] resolved. She still has some abdominal pain. Interval history: The situation is rather puzzling She is getting some migrainous headaches and paresthesias similar to what she has had before. Prophylaxis with Elavil and Topamax and symptomatic treatment with naproxen has worked reasonably well. The exact frequency is unclear, she needs acute treatment every few days to weeks. She recently had an episode of acute vertigo for which she was hospitalized for a few days. This was thought to be probably a migraine equivalent. I spoke with her neurologist in [place] Dr. Thomson whom I know well. CT scan of the head was unremarkable. She also has a lot of more chronic symptoms with fatigue dizziness vertigo and paresthesias. Past medical history: Patient Active Problem List [...] with son. On disability Physical Exam: BP 114/65 (BP Location (NBP): Right arm, Patient Position: Sitting, BP Cuff Sizes: Adult (25-34 cm)) Pulse 89 Ht 147.3 cm (4' 10) Wt 90.7 kg (200 lb) BMI 41.8 kg/m2 Head, eyes, ears, nose and throat were normal. There was no significant tenderness today. The tympanic membranes were clear. Heart and lungs were normal. Extremities were [...] Outpatient Prescriptions Medication Sig Dispense Refill ??? magnesium 250 mg Tablet Take 1 tablet by mouth 2 times daily. ??? calcium carbonate/vitamin D3 (CALCIUM + D ORAL) Take 1 tablet by mouth daily. ??? topiramate (TOPAMAX) 25 mg Tablet Take 1 tablet by mouth 2 times daily. 120 tablet 5 ??? baclofen (LIORESAL) 10 mg Tablet Take 1 tablet by mouth 3 times daily. 90 tablet 11 ??? meloxicam (MOBIC) 7.5 mg Tablet take 1 tablet by mouth once daily 30 tablet 5 ??? amitriptyline (ELAVIL) 50 mg Tablet take 1 tablet by mouth every evening 30 tablet 5 ??? diclofenac (VOLTAREN) 1 % Gel Apply 2 g topically 2 times daily as needed. 100 g 0 ??? cholecalciferol, Vitamin D3, 50,000 unit Capsule Take 1 capsule by mouth once a week. 8 capsule0 ??? multivitamin (THERAGRAN) Tablet Take 1 tablet by mouth daily. ??? naproxen sodium (ANAPROX) 550 mg Tablet Take 1 tablet by mouth 2 times daily as needed. 30 tablet 11 ??? raloxifene (EVISTA) 60 mg tablet Take 60 mg by mouth daily. ??? valACYclovir (VALTREX) 500 mg tablet Take 500 mg by mouth daily. ??? ranitidine (ZANTAC) 150 mg Tablet take 1 tablet by mouth twice a day 1 ??? hydrOXYzine (ATARAX) 25 mg Tablet Take 1 tablet by mouth 2 times daily as needed (dizziness). 30 tablet 0 ??? senna (SENOKOT) 8.6 mg Tablet Take 2-4 tablets twice a week as needed for constipation 60 tablet 11 ??? albuterol (PROAIR HFA) 90 mcg/actuation HFA Aerosol Inhaler INHALE 2 PUFFS INTO THE LUNGS DAILYAS NEEDED FOR WHEEZING, USE WITH SPACER. 8.5 g 5 No current facility-administered medications for this visit. Impression: The patient continues to have multiple neurological issues, but is stable overall 1. As noted earlier, she had a stroke at the time of with no evidence of recurrence. Her MRI scan is stable. 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 2. She suffers from migraine, her most recent symptoms may well have been a migraine equivalent, but more chronic symptoms have a significant component of polypharmacy. I advised discontinuation of various herbal or naturopathic remedies. I also recommended reduction in the dose of Topamax from 50 mg twice daily to 25 mg twice daily, and reduction of the baclofen dose from 10 mg 4 times daily to 10 mg 3 times daily. She can use Naprosyn 500 mg twice [...] that switches a lot betweendifferent joints. I am deferring to rheumatology and orthopedics in this regard. I think consultation with a construction administrator, and resumption of an exercise program would be good idea as Thank you for this consultation. I will see her back in 2-3 months or sooner as needed. I have asked her to call in 2 weeks Julio Welsh [place] [address] Pager: [phone], #[phone] Email: [email or web address] cc: Laura Thomson documented in this encounter Plan of Treatment Not on file documented as of this encounter Visit Diagnoses Diagnosis Intractable migraine with aura without status migrainosus Migraine with aura, with intractable migraine, so stated, without mention of status migrainosus documented in this encounter Care Teams Finishing Range Supervisor Relationship Specialty Start Date End Date Laura Hidalgo APRN [address] [place] [address] PCP - General Internal Medicine 08/16/16 documented as of this encounter
--- OUTSIDE RECORDS SUMMARY | 2023-12-27 01:04 | XMS_ITS | Encounter Summary ---
Author Organization [facility] [place] [address] Care Team Providers Care Contract Project Manager Name Role Phone Laura Hidalgo APRN Primary Care Provider [phone] Reason for Visit * Reason Comments Medication Refill Encounter Details Date Type Department Care Team (Late st Contact Info) Description 06/29/2017 [place] [address] Julio Welsh MD [facility] [place] [address] Social History Tobacco Use Types Packs/Day Years [...] filedocumented in this encounter Care Teams Contract Project Manager Relationship Specialty Start Date End Date Laura Hidalgo APRN [address] [place] [address] PCP - General Internal Medicine 08/16/16 documented as of this encounter
--- OUTSIDE RECORDS SUMMARY | 2023-12-27 01:04 | XMS_ITS | Encounter Summary ---
Author Organization [facility] [place] [address] Care Team Providers Care Officer Lieutenant Name Role Phone Laura Hidalgo APRN Primary Care Provider [phone] Reason for Visit * Reason Onset Date Comments Other 08/16/2016 Encounter Details Date Type Department Care Team (Late st Contact Info) Description 08/16/2016 [place] [id number] Kirstie Welsh MD [facility] [place] [address] Other Social History Tobacco Use Types Packs/Day Years [...] Telephone Encounter - Wyatt Loya RN - 08/16/2016 1:16 PM EDT Meloxicam is for daily use. Naproxen may be used occasionally in addition when she has one of her bad headaches. Thanks, kirstie Called and relayed message to pharmacist. Wyatt * Telephone Encounter - Fernando Velasco - 08/16/2016 12:07 PM EDT Caller: Ada If not Pt / Relation to pt: Amalia pham [facility] Best time to reach caller: Before 2:30pm - Informed caller that nurse will call back by the end of the day Best number to reach caller: [phone] After 230 pm (if not red arrow message) - Informed caller that if the nurse does not call back by the end of the day they will be called tomorrow AM Best number to reach caller: Reason for call: Ada called with a question regarding the patient's medications. Ada asked if the patient's naproxen prescription is replacing the meloxicam or if the patient will be taking both. documented in this encounter Plan of Treatment Not on file documented as of this encounter Visit Diagnoses Not on filedocumented in this encounter Care Teams Officer Lieutenant Relationship Specialty Start Date End Date Laura Hidalgo APRN [address] [place] [address] PCP - General Internal Medicine 08/16/16 documented as of this encounter
--- OUTSIDE RECORDS SUMMARY | 2023-12-27 01:04 | XMS_ITS | Encounter Summary ---
Author Organization [facility] Address [facility] [place] [address] Care Team Providers Care Loading Supervisor Name Role Phone Laura Hidalgo APRN Primary Care Provider Encounter Details Date Type Department Care Team (Late st Contact Info) Description 02/16/2017 9:00 AM EDT [place] [phone] Julio Welsh MD [facility] [place] [address] Chronic pain of right knee Social History [...] Sign Reading Time Taken Comments Blood Pressure 117/63 02/16/2017 8:41 AM EDT Pulse 94 02/16/2017 8:41 AM EDT Temperature - - Respiratory Rate - - Oxygen Saturation - - Inhaled Oxygen Concentration - - Weight 85.7 kg (189 lb) 02/16/2017 8:41 AM EDT Height 148.6 cm (4' 10.5) 02/16/2017 8:41 AM ED T Body Mass Index 38.83 02/16/2017 8:41 AM EDT documented in this encounter Patient Instructions * Patient Instructions* Julio Welsh MD - 02/16/2017 9:00 AM EDT I think you're doing quite well overall. I expect the headaches will settle down with the change in season. I don't see any big change in your neurological exam I'm concerned that you are developing arthritis in your right knee. Please get an x-ray done today. If there are significant abnormalities. I speak with your primary care providers and orthopedics. Continuing meloxicam and occasional uses Naprosyn is reasonable. Please continue with attempts at weight loss for the sake of your liver and gallbladder, which I suspect account for the pains in her stomach Her back to see you back in 6 months or sooner if necessary. Julio Welsh MD [place] [address] Pager: [phone], [phone] Email: [email or web address] documented in this encounter Progress Notes * Julio Welsh MD - 02/16/2017 9:00 AM EDT Neurology clinic note Chief Complaint: [...] needing Imitrex. She also uses naproxen and hydroxyzine Interval history: She is doing about the same overall She is getting some migrainous headaches and paresthesias similar to what she has had before. Prophylaxis with Elavil and Topamax and symptomatic treatment with naproxen has worked reasonably well. The exact frequency is unclear, she needs acute treatment every few days to weeks. She got a hearing aid for her left ear which is working well. She continues to have some musculoskeletal symptoms particularly in her paretic side. However more recently she is complaining of pain in the right knee. She tells me she has been diagnosed with gallstones and fatty liver Past medical history: Patient Active Problem List Diagnosis ??? 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 Ortiz) ??? H/O alcohol abuse ??? H/O cocaine abuse ??? Pain in finger of left hand ??? S/P hysterectomy ??? Acute retinal necrosis of left eye ??? Transient visual disturbance, right ??? Afferent pupillary defect, left eye ??? CIS - Herpes infection, left eye blind ??? CIS - infantile stroke/hemiplegia syndrome ??? CIS - migraine Review of systems: She is eating all right, Sleep is fair, occasionally disturbed by migraines. Bowel and bladder function is stable. Social History: Living at home with son. On disability Physical Exam: BP 117/63 Pulse 94 Ht (!) 148.6 cm (4' 10.5) Wt 85.7 kg (189 lb) BMI 38.83 kg/m2 Head, eyes, ears, nose and throat were normal. There was no significant tenderness today. Heart and lungs were normal. Extremities were [...] Vision was normal today for finger counting. Visual acuity was 20/25 with the 14 inch scar and her glasses. Tuning fork tests suggest a moderate degree of sensorineural hearing loss bilaterally, worse on the left. She is doing better with the hearing aid. She has more nystagmus in both eyes looking to the left. She has a mild left hemiparesis, it is unchanged. Tone is slightly increased on the left. Strength is variable on the right with some give way weakness. Reflexes are brisk except for the left ankle reflex, which cannot be elicited. She has minor sensory deficits on the left and right sides, that are somewhat inconsistent. She hassome tenderness around the left knee and less so around the left ankle. There was no clear sign of instability. Cerebellar function testing revealed substantially normal finger to nose movement. Coordination is mildly impaired on the paretic side She walks with a mildly spastic and ataxic gait with circumduction of the left leg. Medications: Current Outpatient Prescriptions Medication Sig Dispense Refill ??? meloxicam (MOBIC) 7.5 mg Tablet take 1 tablet by mouth daily. 30 tablet 5 ??? baclofen (LIORESAL) 10 mg Tablet Take 1 tablet by mouth 4 times daily. 120 tablet 5 ??? amitriptyline (ELAVIL) 50 mg Tablet take 1 tablet by mouth every evening 30 tablet 5 ??? albuterol (PROAIR HFA) 90 mcg/actuation HFA Aerosol Inhaler INHALE 2 PUFFS INTO THE LUNGS DAILYAS NEEDED FOR WHEEZING, USE WITH SPACER. 8.5 g 5 ??? topiramate (TOPAMAX) 25 mg Tablet take 2 tablets by mouth twice a day. 120 tablet 5 ??? multivitamin (THERAGRAN) Tablet Take 1 tablet by mouth daily. ??? naproxen sodium (ANAPROX) 550 mg Tablet Take 1 tablet by mouth 2 times daily as needed. 30 tablet 11 ??? cyanocobalamin 1,000 mcg Tablet Take 1,000 mcg by mouth daily. ??? CALCIUM CARBONATE (TUMS ORAL) Take 1 tablet by mouth daily. ??? aspirin 325 mg tablet Take 325 mg by mouth daily. ??? raloxifene (EVISTA) 60 [...] hemiparesis and cerebral palsy are stable. She had some arthritic pain in her left knee, but he seems to shifted to the right. I'm obtaining an x-ray.. X-rays of the left kneewere previously were unremarkable. She has been to physical therapy. She will continue going to the gym. She can use hot and cold packs and NSAIDs. I also advised weight loss. 2. She suffers from migraine. She was doing quite well on Elavil for prevention but then had worsening migraine and probably analgesic rebound headache from overuse of Excedrin Migraine. She is doingsomewhat better since we added Topamax to her regimen, and and is now using only naproxen for symptomatic relief. If headaches worsen, we can re-prescribe hydroxyzine and sumatriptan. I reinforced that she should not go to the emergency room for paretic or migrainous symptoms that are similar to what she has had earlier, and which have always resolved in a few hours. The problem is that whenever she goes to the ED someone thinks she needs a CAT scan, and I am seriously concernednow about the cumulative risk of radiation. 3. Her vision problems appear to have [...] infection. She needs to remain on Valtrex. 4.. He has sensorineural hearing loss bilaterally, and it is worse in the left ear. She is doing better with the hearing aid. Thank you for this consultation. I will see her back in 6 months or sooner as needed. Julio Welsh [place] [address] Pager: [phone], #[phone] Email: [email or web address] cc: Laura Hidalgo APRN documented in this encounter Plan of Treatment Not on file documented as of this encounter Visit Diagnoses Diagnosis Chronic pain of right knee documented in this encounter Care Teams Loading Supervisor Relationship Specialty Start Date End Date Laura Hidalgo APRN [address] [place] [address] PCP - General Internal Medicine 08/16/16 documented as of this encounter
--- OUTSIDE RECORDS SUMMARY | 2023-12-27 01:04 | XMS_ITS | Encounter Summary ---
Author Organization [facility] [place] [address] Care Team Providers Care Emr Analyst Name Role Phone Laura Hidalgo APRN Primary Care Provider Encounter Details Date Type Department Care Team (Late st Contact Info) Description 08/26/2017 11:00 AM EDT Office [place] [phone] Julio Welsh MD [facility] [place] [address] Intractable migraine with aura without status migrainosus [...] Sign Reading Time Taken Comments Blood Pressure 110/62 08/26/2017 10:38 AM EDT Pulse 93 08/26/2017 10:38 AM EDT Temperature - - Respiratory Rate - - Oxygen Saturation - - Inhaled Oxygen Concentration - - Weight 88 kg (194 lb) 08/26/2017 10:38 AM EDT re ported Height 147.3 cm (4' 10) 08/26/2017 10:38 AM EDT reported Body Mass Index 40.55 08/26/2017 10:38 AM EDT documented in this encounter Progress Notes * Julio Welsh MD - 08/26/2017 11:00 AM EDT Neurology clinic note Chief [...] is working well. She continues to have musculoskeletal symptoms of joint pains in various parts of her body. She hasbeen seen in orthopedics and rheumatology. She is being treated with vitamin D and topical Voltaren. Since I last saw her she had an emergency cholecystectomy. This was complicated by what sounds likea bile leak. She required a temporary drain. All this seems resolved. She still has some abdominal pain. Past medical history: Patient Active Problem List [...] with son. On disability Physical Exam: BP 110/62 (BP Location (NBP): Left arm, Patient Position: Sitting, BP Cuff Sizes: Large Adult (32-43 cm)) Pulse 93 Ht 147.3 cm (4' 10) Comment: reported Wt 88 kg (194 lb) Comment: reported BMI 40.55 kg/m2 Head, eyes, ears, nose and throat were normal. There was no significant tenderness today. Heart and lungs were normal. Bowel sounds are present. There is mild abdominal tenderness. Extremities were unremarkable, she has hemiatrophy on [...] today for finger counting. Visual acuity was 20/30 with the 14 inch scar and her [...] mouth once daily 30 tablet 5 ??? baclofen (LIORESAL) 10 mg Tablet take 1 tablet by mouth four times a day 120 tablet 5 ??? amitriptyline (ELAVIL) 50 mg Tablet take 1 tablet by mouth every evening 30 tablet 5 ??? diclofenac (VOLTAREN) 1 % Gel Apply 2 g topically 2 times daily as needed. 100 g 0 ??? cholecalciferol, Vitamin D3, 50,000 unit Capsule Take 1 capsule by mouth once a week. 8 capsule0 ??? topiramate (TOPAMAX) 25 mg Tablet take 2 tablets by mouth twice a day. 120 tablet 5 ??? omeprazole (PRILOSEC) 40 mg Capsule, Delayed Release(E.C.) take 1 capsule by mouth once daily 0 ??? albuterol (PROAIR HFA) 90 mcg/actuation HFA [...] palsy are stable. 2. She suffers from migraine. She was [...] She needs to remain on Valtrex. 4. SHe has sensorineural hearing loss bilaterally, and it is worse in the left ear. She is doing better with the hearing aid. 5. Because of her hemiparesis and obesity, she has musculoskeletal pain that switches a lot betweendifferent joints. I am deferring to rheumatology and orthopedics in this regard. Thank you for this consultation. I will see her back in 6 months or sooner as needed. Julio Welsh MD Department [place] [address] Pager: [phone], #[phone] Email: [email or web address] cc: Laura Hidalgo APRN documented in this encounter Plan of Treatment Not on file documented as of this encounter Visit Diagnoses Diagnosis Intractable migraine with aura without status migrainosus Migraine with aura, with intractable migraine, so stated, without mention of status migrainosus documented in this encounter Care Teams Emr Analyst Relationship Specialty Start Date End Date Laura Hidalgo APRN [address] [place] [address] PCP - General Internal Medicine 08/16/16 documented as of this encounter
--- OUTSIDE RECORDS SUMMARY | 2023-12-27 01:04 | XMS_ITS | Encounter Summary ---
Author Organization [facility] [place] [address] Care Team Providers Care Shop Supervisor Name Role Phone Laura Hidalgo APRN Primary Care Provider [phone] Reason for Visit * Reason Onset Date Comments Medication Refill 11/02/2016 Encounter Details Date Type Department Care Team (Late st Contact Info) Description 11/02/2016 Ref[place] [address] Julio Welsh MD [facility] [place] [address] Social History Tobacco Use Types Packs/Day Years [...] on filedocumented in this encounter Care Teams Shop Supervisor Relationship Specialty Start Date End Date Laura Hidalgo APRN [address] [place] [address] PCP - General Internal Medicine 08/16/16 documented as of this encounter
--- OUTSIDE RECORDS SUMMARY | 2023-12-27 01:04 | XMS_ITS | Encounter Summary ---
Author Organization [facility] [place] [address] Care Team Providers Care Rooming House Keeper Name Role Phone Laura Hidalgo APRN Primary Care Provider [phone] Encounter Details Date Type Department Care Team (Latest Contact Info) Description 10/18/2017 - 10/18/2017 11:59 PM EDT Hospital Encounter [place] [phone] Julio Welsh MD [facility] [place] [address] Discharge Disposition: Home Social History Tobacco Use [...] by mouth once daily 30 tablet 5 07/11/2017 01/29/2018 baclofen (LIORESAL) 10 mg Tablet take 1 tablet by mouth four times a day 120 tablet 5 07/11/2017 11/07/2017 amitriptyline (ELAVIL) 50 mg Tablet take 1 tablet by mouth every evening 30 tablet 5 06/29/2017 12/30/2017 diclofenac (VOLTAREN) 1 % Gel Apply 2 g topically 2 times daily as needed. 100 g 06/16/2017 10/22/2020 cholecalciferol, Vitamin D3, 50,000 unit CapsuleIndications:Vit phipps D deficiency Take 1 capsule by mouth once a week. 8 capsule 05/03/2017 06/09/2021 topiramate (TOPAMAX) 25 mg Tablet take 2 tablets by mouth twice a day. 120 tablet 5 05/02/2017 10/31/2017 omeprazole (PRILOSEC) 40 mg Capsule, Delayed Release(E.C.) take 1 capsule by mouth once daily 0 04/18/2017 11/07/2017 multivitamin (THERAGRAN) Tablet Take 1 tablet by mouth daily. 06/09/2021 naproxen sodium (ANAPROX) 550 mg Tablet Take 1 tablet by mouth 2 times daily as needed. 30 tablet 11 08/16/2016 10/22/2020 cyanocobalamin 1,000 mcg Tablet Take 1,000 mcg by mouth daily. 11/07/2017 CALCIUM CARBONATE (TUMS ORAL)Indications:Migra ine Take 1 tablet by mouth daily. 11/07/2017 aspirin 325 mg tablet Take 325 mg by mouth daily. 11/07/2017 documented as of this encounter Plan of Treatment Not on file documented as of this encounter Procedures Procedure Name Priority Date/Time Associated Diagnosis Comments FILM LIBRARY STORAGE ONLY CT HEAD Routine 10/18/2017 12:00 AM EDT documented in this encounter Results * Film Library- Storage Only CT Head (10/18/2017 12:00 AM EDT) Narrative RAD - 10/20/2017 1:52 PM EDT This exam is for storage only and is auto-finalizing. Julio Welsh MD IMG FILM LIBRARY ORD ERABLES [place], [place] documented in this encounter Visit Diagnoses Not on filedocumented in this encounter Care Teams Rooming House Keeper Relationship Specialty Start Date End Date Laura Hidalgo, [employer] [address] [place] [address] PCP - General Internal Medicine 08/16/16 documented as of this encounter
--- OUTSIDE RECORDS SUMMARY | 2023-12-27 01:04 | XMS_ITS | Encounter Summary ---
Author Organization [facility] [place] [address] Care Team Providers Care Corporate Sales Representative Name Role Phone Laura Hidalgo APRN Primary Care Provider Reason for Visit * Reason Comments Skin Check * Consultation (Routine) - Specialty Diagnoses / Procedures Referred By Jay ireland Referred To Contact Dermatology Diagnoses Freckles Spontaneous ecchymoses Procedures Freckles, Skin Spots Laura Hidalgo APRN [address] [place] [address] [facility] D[facility]at[facility] [address] [place] [address] Referral ID Status Reason Start Date Expiration Date V isits Requested Visits Authorized [id number] 03/22/2017 03/22/2018 1 1 Encounter Details Date Type Department Care Team (Late st Contact Info) Description 04/13/2017 1:00 PM EST Office Visit Dermatology at [facility] [address] [place] [phone] Kimo Kaiser MD [facility] [address] [place] [address] Jennifer Matthews PA [facility] [place] [address] Multiple benign nevi; SK (seborrheic keratosis); Lentigines; Olsen angioma; Dermatofibroma Social History Tobacco Use Types Packs/Day Years [...] as of this encounter Progress Notes * Jennifer Matthews PA - 04/13/2017 1:00 PM EST DERMATOLOGY - NEW PATIENT CONSULT NOTE Date of service: 04/13/2017 Yuli Romero : 1975 Dermatology Physician Circulation Analyst Note: JAZZY BegumC Chief Complaint Patient presents with ??? Skin Check Ms. Yuli Romero is a 42 y.o. female. This is a new patient to me and to the clinic. Seen in consultation at the request of Laura Hidalgo specifically for the evaluation and management of the above problem. HPI: Ms. Romero presents for a total body skin exam. She has a lesion on her right leg that she has had for 4-5 months, tender. Skin History: None Family History: Melanoma: none Social History: Relevant occupational/recreational/travel/animal exposures: disability Medical History: Patient Active Problem List Diagnosis Code ??? CIS - Herpes infection, left eye blind ??? CIS - infantile stroke/hemiplegia syndrome ??? CIS - migraine ??? Acute retinal necrosis of left eye H30.132 ??? Transient visual disturbance, right H53.9 ??? Afferent pupillary defect, left eye H21.569 ??? S/P hysterectomy Z90.710 ??? Pain in finger of left hand M79.645 ??? 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 Ortiz) M24.342 ??? H/O alcohol abuse Z87.898 ??? H/O cocaine abuse Z87.898 ??? Chronic pain of both knees M25.561, M25.562, G89.29 Medications: Current Outpatient Prescriptions Medication Sig Dispense [...] [Sulfamethoxazole-Trimethoprim] seizure ??? Diflucan [Fluconazole] Unknown reaction Procedure screening: Allergies to lido/epi: no Defibrillator: no Review of Systems: General: Feels well Skin: As per HPI; no other skin concerns Examination: - Constitutional: Patient was alert, well-appearing and in no noticeable distress. - Skin: A full skin examination was performed. This includes the head, neck, face and scalp including behind the ears. The chest, abdomen, back, and axillae, as well as the arms, hands, palms, fingers. Legs,feet, toes and soles were also examined. Buttocks and breasts were also examined with patient consent. Genitalia were not examined. - Skin Type: 2 Specific skin findings/Diagnosis/Assessment/Treatment Plan: 1. Benign appearing nevi with even pigmentation and well defined margins are noted (nonsymptomatic)- trunk and extremities - No lesions suspicious for melanoma identified on exam today. Will continue to monitor. - Patient reassured of benign nature. - Discussed importance of sun protection, sun avoidance strategies, protective clothing, and sunscreen. I discussed warning signs for skin cancer, including the ABCDEF's of melanoma. - Observe skin for change in color, size or character. Call if such occur?? - Advised patient to call if areas become inflamed or irritated. 2. Seborrheic Keratosis - trunk and extremities - Etiology discussed - Patient reassured lesions are benign in nature - Explained that these are hereditary and adult-acquired. - Can develop anywhere on the body except for palms of hands and soles of feet - discussed cosmetic options. - Advised patient to call if areas become inflamed or irritated. 3. Lentigines - Face, trunk, and extremities - Discussed benign nature of lesion and provided reassurance - No treatment necessary at this time ?? - Observe skin for change in color, size or character. Call if such occur 4. Olsen Angioma(s) - Discussed benign nature of lesion and provided reassurance. ?? - No treatment necessary at this time. 5. Dermatofibroma (DF) - right calf. - Discussed benign nature of lesion and provided reassurance. - No treatment necessary at this time. Can be removed if overly bothersome/painful. Pt declines at this time. LOS: [id number] RTC: 2 year full skin exam. Reminder placed in scheduling system. PRN if symptoms worsen or persist. Instructed to call with questions or concerns. Note initiated by MOY CONDON LPN I am documenting this encounter acting as the scribe for and in the presence of Jennifer Matthews PA-C I performed the above scribed service and agree with the accuracy of the documentation in this encounter. Reviewed and signed by Jennifer Matthews PA-C Dermatology [facility] Patient seen with direct supervision of Attending Physician: Kimo Kaiser MD Section of Dermatology [facility] A copy of this report has been sent to the referring provider either by electronic messaging or by fax. We appreciate you allowing us to join in the care of your patient. To help expedite future referrals, we have included some tips below for your reference. We have created guidelines for our scheduling team for prioritizing referrals. By adhering to theseguidelines and referral process requests, we feel we can do a better job meeting your needs. Pleasenote that the following lists are simply guidelines and are subject to change based on your clinical exam. MOST Urgent (need to be seen within 48-72 hours) *Call our Consult Geology Associate to schedule at [phone] ??? New or changing pigmented lesion ??? Eruptive rash (new/concerning) ??? Ruptured cyst ??? Bullous dermatoses (blisters/ blistering rash) ??? Ulcerated hemangioma SEMI Urgent (need to be seen within 2 weeks) *Enter referral in eDH as ???Urgent?? or ???ROSA? Eczema and psoriasis flares /dermatitis ??? Skin lesions concerning for non-melanoma skin cancer ??? Hemangioma LEAST Urgent (next available appointment) *Enter referral in eDH as ???Routine? Chronic rash ??? Cosmetic concerns (including skin tags) ??? Onychomycosis and other nail complaints ??? Cysts ??? Acne ??? Alopecia ??? Actinic keratosis ??? Warts/molluscum ??? lucia We hope you will work with us to educate mutual patients on these expected timelines. We feel that this process will help us see the right patients at the right time. * Kimo Kaiser MD - 04/13/2017 1:00 PM EST Skin cancer examination Tender papule on on the right leg, approx 0.4 cm pink firm papule c/w DF. Clinically benign. Discussed removal for symptom management, joint decision to hold off for now. Otherwise benign skin exam, including Sks, lentigines and benign nevi. Patient seen in conjunction with Jennifer Matthews PA-C Signed by: KIMO KAISER MD Section of Dermatology [facility] documented in this encounter Plan of Treatment Not on file documented as of this encounter Visit Diagnoses Diagnosis Multiple benign nevi Benign neoplasm of skin, site unspecified SK (seborrheic keratosis) Other seborrheic keratosis Lentigines Other dyschromia Olsen angioma Nevus, non-neoplastic Dermatofibroma Benign neoplasm of skin, site unspecified documented in this encounter Care Teams Corporate Sales Representative Relationship Specialty Start Date End Date Laura Hidalgo APRN [address] [place] [address] PCP - General Internal Medicine 08/16/16 documented as of this encounter
--- OUTSIDE RECORDS SUMMARY | 2023-12-27 01:04 | XMS_ITS | Encounter Summary ---
Author Organization [facility] [place] [address] Care Team Providers Care Purchaser Name Role Phone Laura Hidalgo APRN Primary Care Provider [phone] Encounter Details Date Type Department Care Team (Latest Contact Info) Description 10/19/2017 - 10/19/2017 11:59 PM EDT Hospital Encounter [place] [id number] Julio Welsh MD [facility] [place] [address] Discharge Disposition: Home Social History Tobacco Use [...] Associated Diagnosis Comments FILM LIBRARY STORAGE ONLY MR ROBERTS Routine 10/19/2017 12:00 AM EDT documented in this encounter Results * Film Library- Storage Only MR Roberts (10/19/2017 12:00 AM EDT) Narrative RAD - 10/20/2017 1:54 PM EDT This exam is for storage only and is auto-finalizing. Julio Welsh MD IMG FILM LIBRARY ORD ERABLES [place], [place] documented in this encounter Visit Diagnoses Not on filedocumented in this encounter Care Teams Purchaser Relationship Specialty Start Date End Date Laura Hidalgo, WELD LAY OUT WORKER [address] [place] [address] PCP - General Internal Medicine 08/16/16 documented as of this encounter
--- OUTSIDE RECORDS SUMMARY | 2023-12-27 01:04 | XMS_ITS | Encounter Summary ---
Author Organization [facility] [place] [address] Care Team Providers Care Medical Reception Specialist Name Role Phone Chelsy Abbasi APRN Primary Care Provider [phone] Reason for Visit * Reason Comments Medication Refill Encounter Details Date Type Department Care Team (Late Contact Info) Description 01/04/2016 [place] [address] Julio Welsh MD [facility] [place] [address] Social History Tobacco Use Types Packs/Day Years [...] on filedocumented in this encounter Care Teams Medical Reception Specialist Relationship Specialty Start Date End Date Chelsy Abbasi APRN [address] [place] [address] PCP - General General Internal Medicine 08/11/1508/04 documented as of this encounter
--- OUTSIDE RECORDS SUMMARY | 2023-12-27 01:04 | XMS_ITS | Encounter Summary ---
Author Organization [facility] [place] [address] Care Team Providers Care Director Imaging Name Role Phone Laura Hidalgo APRN Primary Care Provider [phone] Encounter Details Date Type Department Care Team (Latest Contact Info) Description 06/16/2017 9:30 AM EST Office [place] [address] Karely Aviles MD [facility] [place] [address] Acute pain of right knee; Osteoarthritis, unspecified osteoarthritis type, unspecified site; Osteoporosis without current pathological fracture, unspecified osteoporosis type; Tendinopathy; Vitamin D deficiency; CRP elevated Social History Tobacco Use Types Packs/Day Years [...] Sign Reading Time Taken Comments Blood Pressure 108/72 06/16/2017 8:55 AM EST Pulse 93 06/16/2017 8:55 AM EST Temperature - - Respiratory Rate 18 06/16/2017 8:55 AM EST Oxygen Saturation 93% 06/16/2017 8:55 AM EST Inhaled Oxygen Concentration - - Weight 85.3 kg (188 lb) 06/16/2017 8:55 AM EST Height 148.6 cm (4' 10.5) 06/16/2017 8:55 AM ES T Body Mass Index 38.62 06/16/2017 8:55 AM EST documented in this encounter Progress Notes * Karely Aviles MD - 06/16/2017 9:30 AM EST HPI: The patient returns for follow up. Asked by Orthopaedics to evaluate this patient with bilateral chronic knee pain, initially seen on 04/27/17 Accompanied by her . Since last seeing the patient, Had 2 emergency procedures. Main problem now is abdominal pain,improving slowly. S/P open cholecystectomy on 06/05, later complicated by bile leak and had GP drain placed 06/11. Continue to have abdominal pain, has difficulty walking from surgery, so in wheel chair. R knee pain, in the posterior aspect. Usually goes to gym 3 days/week. Sudden onset R knee pain, anteriorly radiating to posterior aspect, after she had knee pop while she turned at gym. ESR, CCP, LENCHO normal/negative RF 12 (less than or equal to 14) TSH normal, vitamin D 26, low Elevated CRP 6.1 (less than or equal to 4.9), possible in the setting of BMI 38.62 ?? MRI of the right knee without contrast 04/27/17 suggestive of osteoarthritis of the right knee and popliteal tendinopathy. IMPRESSION: 1. ??Osteoarthritis of the knee. There are marginal osteophytes and chondral defects throughout. Chondral injuries are most pronounced at the patellar surface. 2. ??No meniscal tear is identified. Abnormal increased signal within the popliteus tendon is consistent with tendinopathy. Physical exam: Gen: Patient is awake, alert and oriented x 3, in no distress Skin: warm and dry, no rheumatologic rashes Lymph: no cervical or submandibular adenopathy Thyroid: no nodules or thyromegaly Mouth: moist mucous membranes, no oral ulcers Eyes: normal sclerae Heart: regular rate, no murmurs, rubs or gallops Lungs: clear to auscultation b/l Spine: normal ROM and no tenderness Joints: In whee chair. GP drain to help with bile leak. S/P open cholecystectomy on 06/05. Tenderness in the posterior aspect of the knee to palpation. No warmth, erythema, effusion. No active synovitis. R knee with limited full flexion and joint line tenderness on medical side. Leg length discrepancy R>L. Tender 18/18 FM points and diffuse myofascial pain. L elbow with mild flexion deformity. Tenderness in epicondyles for years. Unable to perform provocative tests due todecreased strength in LUE. Known h/o L shoulder tendinitis. L foot drop with ASO brace with significantly decreased strength. ?? Imagin04/13/17 R knee xray: Very mild joint space narrowing is suggested at the right medial compartment on the Jamison view, with tiny associated marginal osteophytes. No significant joint space narrowing is appreciated at the left knee. No fracture or dislocation. No significant left suprapatellar knee joint effusion. There appears to be a discrepancy in the lengths of the lower extremities, with the right lower extremity measuring 81.8 cm in length and the left lower extremity measuring 80.4 cm in length when measured from the superior cortex of the femoral head to tibial plafond. There is medial deviation of the right lower extremity mechanical axis by approximately 3.2 cm, and there is medial deviation of the left lower extremity mechanical axis by approximately 1.1 cm. IMPRESSION: Radiographically mild-appearing degenerative changes at the right knee as Described. 04/27/17??MRI of the right knee without contrast suggestive of osteoarthritis of the right knee andpopliteal tendinopathy. IMPRESSION: 1. ??Osteoarthritis of the knee. There are marginal osteophytes and chondral defects throughout. Chondral injuries are most pronounced at the patellar surface. 2. ??No meniscal tear is identified. Abnormal increased signal within the popliteus tendon is consistent with Tendinopathy. Impression/Recommendations: Ms. 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 Reportedly plan for steroid injection by orthopedics pending further work up including MRI R knee and Rheumatology evaluation for chronic R knee pain. ?? Based on history, exam, serologies no evidence of inflammatory arthritis such as RA. OA of R knee and popliteal tendinopathy. Vitamin D deficiency, on supplementation. Continue with OTC vitamin D 2000 units daily Elevated CRP, possibly in the setting of BMI. Osteoporosis, on evista for about 5 years. Rest, ice, compression and elevation for tendinitis. Consider knee brace and topical analgesics such as voltaren gel 2 times daily as needed(prescription sent) along with stretching and strenghtening exercises. Exaplained that it might take long time for recovery from tendon injuries due to possible decrease in blood supply. Recommend PT, patient interested in pursuing after recovery from surgery. Also motivated to restartgym. Tylenol 1000 mg 2-3 timed daily as needed. Recommend sleep study for evaluation of NATALIIA. Discussed about conservative measures for dry eyes, dry mouth. Eyedrops preservative-free 4 times daily as needed. Frequent sips of water, sugar-free candy and Biotene mouthwash/spray as needed. Discussed in detail and provided education material on tendinitis, Osteoarthritis. ?? RTC as needed. Currently in wheel chair as she is recovering from abdominal surgery. ? documented in this encounter Plan of Treatment Not on file documented as of this encounter Visit Diagnoses Diagnosis Acute pain of right knee Osteoarthritis, unspecified osteoarthritis type, unspecified site Osteoporosis without current pathological fracture, unspecified osteoporosis type Tendinopathy Unspecified disorder of synovium, tendon, and bursa Vitamin D deficiency Unspecified vitamin D deficiency CRP elevated Elevated C-reactive protein (CRP) documented in this encounter Care Teams Director Imaging Relationship Specialty Start Date End Date Laura Hidalgo APRN [address] [place] [address] PCP - General Internal Medicine 08/16/16 documented as of this encounter
--- OUTSIDE RECORDS SUMMARY | 2023-12-27 01:04 | XMS_ITS | Encounter Summary ---
Author Organization [facility] [place] [address] Care Team Providers Care Assistant Counsel Name Role Phone Chelsy Abbasi APRN Primary Care Provider [phone] Reason for Referral * Occupational Therapy (Routine) - Specialty Diagnoses / Procedures Referred By Jay ireland Referred To Contact Occupational Therapy Diagnoses Nontraumatic extensor tendon dislocation of left hand Shruti Moses PA [address] [place] [address] [place] [address] Referral ID Status Reason Start Date Expiration Date V isits Requested Visits Authorized [id number] Evaluate and Treat 01/07/2016 07/05/2016 12 12 Reason for Visit * Reason Comments Left Hand Pain A1 Dana release & realignment of extensor tendon L small finger DOS 12/26/15 Encounter Details Date Type Department Care Team (Late st Contact Info) Description 01/07/2016 3:25 PM EDT Office [place] [address] Sherif Ortiz MD [facility] [place] [address] Nontraumatic extensor tendon dislocation of left hand, s/p aberrant tendon resection and L 5th trigger finger release 12/26/15 (Dr. Ortiz) Social History Tobacco Use Types Packs/Day Years [...] Sign Reading Time Taken Comments Blood Pressure 99/65 01/07/2016 3:20 PM EDT Pulse 89 01/07/2016 3:20 PM EDT Temperature - - Respiratory Rate - - Oxygen Saturation - - Inhaled Oxygen Concentration - - Weight 88 kg (194 lb) 01/07/2016 3:20 PM EDT margot bal Height 152.4 cm (5') 01/07/2016 3:20 PM EDT verb al Body Mass Index 37.89 01/07/2016 3:20 PM EDT documented in this encounter Progress Notes * Shruti Moses PA - 01/07/2016 3:25 PM EDT Yuli comes in today accompanied by her mother status post realignment of extensor tendon left small finger and A1 dana release left small finger 12/26/15, Dr. Ortiz. She is doing well. She has had 1 episode of some burning in her forearm. She has not noticed any catching any longer. Examination today with Dr. Ortiz of her left hand shows just mild swelling, no erythema or warmth. The incisions are healed nicely without evidence of infection. She is able to just about fully extend the finger and make a gentle fist without any snapping or catching. IMPRESSION: Realignment of extensor tendon left small finger and A1 dana release left small finger 12/26/15. TREATMENT: Sutures were removed, Steri-Strips applied. She can gradually increase the use of her hand as she feels comfortable. She may now get her hand wet. We will have her start with OT due to her slight swelling and stiffness. If her motion is not returned adequately in 1 months' time, we have asked her to return for reevaluation; otherwise, we can see her back on an as needed basis. documented in this encounter Plan of Treatment Scheduled Referrals Name Type Priority Associated Diagnoses Orde r Schedule Referral to Occupational Therapy Outpatient Referral Routine Nontraumatic extensor tendon dislocation of left hand, s/p aberrant tendon resection and L 5th trigger finger release 12/26/15 (Dr. Ortiz) Ordered: 01/07/2016 documented as of this encounter Visit Diagnoses Diagnosis Nontraumatic extensor tendon dislocation of left hand, s/p aberrant tendon resection and L 5th trigger finger release 12/26/15 (Dr. Ortiz) documented in this encounter Care Teams Assistant Counsel Relationship Specialty Start Date End Date Chelsy Abbasi APRN [address] [place] [address] PCP - General General Internal Medicine 08/11/1508/04 documented as of this encounter
--- OUTSIDE RECORDS SUMMARY | 2023-12-27 01:04 | XMS_ITS | Encounter Summary ---
Author Organization [facility] [place] [address] Care Team Providers Care Pump Installation And Servicer Name Role Phone Chelsy Abbasi APRN Primary Care Provider [phone] Reason for Visit * Reason Onset Date Comments Other 02/23/2016 Encounter Details Date Type Department Care Team (Late st Contact Info) Description 02/23/2016 Telephone [place] [phone] Julio Welsh MD [facility] [place] [address] Other Social History Tobacco Use Types Packs/Day [...] Telephone Encounter - Wyatt Loya RN - 02/23/2016 4:18 PM EDT Her knee x-ray looks basically okay. Continue with physical therapy and Naprosyn. Thanks Julio Called and relayed message to Yuli she voiced understanding and agreement. Wyatt * Telephone Encounter - Keyona Morel - 02/23/2016 3:58 PM EDT Patient would like a call back with the results from her knee xray. Please call back at [phone] documented in this encounter Plan of Treatment Not on file documented as of this encounter Visit Diagnoses Not on filedocumented in this encounter Care Teams Pump Installation And Servicer Relationship Specialty Start Date End Date Chelsy Abbasi APRN [address] [place] [address] PCP - General General Internal Medicine 08/11/1508/04 documented as of this encounter
--- OUTSIDE RECORDS SUMMARY | 2023-12-27 01:04 | XMS_ITS | Encounter Summary ---
[place] [address] Care Team Providers Care Assistant Director Of Security Name Role Phone Laura Hidalgo APRN Primary Care Provider [phone] Reason for Referral * Consultation (Routine) - Closed Specialty Diagnoses / Procedures Referred By Contac t Referred To Contact Rheumatology Diagnoses Chronic pain of both knees Chronic pain of right knee Olena Sandhu PA [facility] [place] [address] [facility] Rheumatology [address] [place] [phone] Referral ID Status Reason Start Date Expiration Date V isits Requested Visits Authorized [id number] Closed Consult, Test & Treat 04/13/2017 04/13/2018 1 1 * Consultation (Routine) - Closed Specialty Diagnoses / Procedures Referred By Contac t Referred To Contact Radiology Diagnoses Chronic pain of both knees Chronic pain of right knee Procedures MRI Knee wo Contrast Right (Generic) Olena Sandhu PA [facility] [place]OP[place] [address] [place] [address] Referral ID Status Reason Start Date Expiration Date V isits Requested Visits Authorized [id number] Closed Specialty Service Requested 04/13/2017 07/12/2017 1 1 Reason for Visit * Reason Comments Bilateral Knee Pain * Consultation (Routine) - Specialty Diagnoses / Procedures Referred By Contac t Referred To Contact Orthopaedics Diagnoses pain in both knees Procedures Laura Hidalgo, TIE HACKER [address] [place] [address] [facility] Orthopaedics [address] [place] [phone] Referral ID Status Reason Start Date Expiration Date V isits Requested Visits Authorized [id number] Consult, Test & Treat 03/16/2017 03/16/2018 1 1 Encounter Details Date Type Department Care Team (Late st Contact Info) Description 04/13/2017 10:30 AM EST Office [place] [address] Des Joy MD [facility] DR ORTHOPAEDIC [place] [address] Chronic pain of both knees; Chronic pain of right knee Social History [...] Sign Reading Time Taken Comments Blood Pressure 114/47 04/13/2017 10:24 AM EST Pulse 72 04/13/2017 10:24 AM EST Temperature - - Respiratory Rate - - Oxygen Saturation - - Inhaled Oxygen Concentration - - Weight 85.3 kg (188 lb) 04/13/2017 10:24 AM EST verbal Height 147.3 cm (4' 10) 04/13/2017 10:24 AM EST verbal Body Mass Index 39.29 04/13/2017 10:24 AM EST documented in this encounter Progress Notes * Olena Sandhu PA - 04/13/2017 10:30 AM EST Chief complaint: bilateral knee pain History of present illness: Yuli Romero is a 42 y.o. year-old female presenting with long-standing bilateral knee pain. Georgie has a diagnosis of left-sided hyperplasia, cerebral palsy. She has had chronic left knee pain however 6 months ago her right knee became painful as well. She reports frequent falls however none that have been more severe than her normal. She is unable to sense her lower left leg. She does report locking of the right knee. At the age of 36 she obtained a Achilles tendon lengthening of her left side and reports that since this time she has had left ankle pain. She comes to clinic wearing an ankle stabilization brace. Past medical history: Patient Active Problem List Diagnosis Date Noted ??? Chronic pain of both knees 04/13/2017 ??? 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 Ortiz) 12/03/2015 ??? H/O alcohol abuse 12/03/2015 ??? H/O cocaine abuse 12/03/2015 ??? Pain in finger of left hand 08/11/2015 ??? S/P hysterectomy 02/18/2015 ??? 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 Transient visual disturbance, right 12/23/2011 ??? Afferent pupillary defect, left eye 12/23/2011 ??? CIS - Herpes infection, left eye blind ??? CIS - infantile stroke/hemiplegia syndrome ??? CIS - migraine Medications: ??? meloxicam (MOBIC) 7.5 mg Tablet ??? baclofen (LIORESAL) 10 mg Tablet ??? amitriptyline (ELAVIL) 50 mg Tablet ??? albuterol (PROAIR HFA) 90 mcg/actuation HFA Aerosol Inhaler ??? topiramate (TOPAMAX) 25 mg Tablet ??? multivitamin (THERAGRAN) Tablet ??? naproxen sodium (ANAPROX) 550 mg Tablet ??? cyanocobalamin 1,000 mcg Tablet ??? CALCIUM CARBONATE (TUMS ORAL) ??? aspirin 325 mg tablet ??? raloxifene (EVISTA) 60 mg tablet ??? valACYclovir (VALTREX) 500 mg tablet Allergies: Allergies Allergen Reactions ??? Allergenic Extracts Shortness Of Breath Pollen and dust Smoke--wheezing, water eyes ??? Bactrim [Sulfamethoxazole-Trimethoprim] seizure ??? Diflucan [Fluconazole] Unknown reaction Social history: Social History Substance Use Topics ??? Smoking status: Former Smoker Quit date: 04/13/2007 ??? Smokeless tobacco: Never Used ??? Alcohol use No Review of systems: No chest pain or shortness of breath at baseline No fevers, night sweats or chills Vital signs: Most Recent Vitals: 04/13/17 1024 BP: 114/47 Pulse: 72 Physical Exam: No Apparent distress Left knee: No erythema, ecchymosis noted significantly tender to palpation over the lateral joint line. Tender to palpation on the medial joint line and popliteal area. Flexion 110?? extension 5?? negative valgus stress test Negative varus stress test Negative anterior drawer test Negative posterior drawer test Unable to sense Superficial peroneal, deep peroneal, sural, saphenous, and tibial nerves PT/DP pulses 2+ Right knee: No erythema or ecchymosis noted significantly tender to palpation over the medial joint line. Tender to palpation on the lateral joint line and popliteal area. Flexion 95?? extension 5?? negative valgus stress test Negative varus stress test Negative anterior drawer test Negative posterior drawer test PT/DP pulses 2+. Superficial peroneal, deep peroneal, sural, saphenous, and tibial nerves intact totouch. Imaging: Personal review of the patient's imaging reveals: marginal joint space narrowing on the lateral aspect of the left knee and medial aspect of the right knee. Assessment: 42 y.o. year-old female with bilateral joint pain. Plan: Patient seen and plan discussed in conjunction with Dr. Joy. We had a long discussion about the nature of her discomfort. We reviewed her x-ray images together which show marginal joint space narrowing on the lateral aspect of the left knee and medial aspect of the right knee. . Clinical exam correlates with the XR in terms of location of her pain. . She is exquisitely tender over the lateral left knee and medial right knee. We discussed the the locking that she is experiences in her right knee. I am concerned that the right knee may have a meniscal tear. She would like to obtain an MRI to determine the severity of this. We discussed treating her knee pain with corticosteroid injections into her left knee, however I would like for her to be seen by rheumatology first. He pain pattern is somewhat uncharacteristic for simple OA. . Follow up: PRN This plan was discussed with the patient and they are in agreement. All of the patient's questions were answered. The above dictation was made with voice recogonition software Olena Sandhu PA-C documented in this encounter Plan of Treatment Scheduled Referrals Name Type Priority Associated Diagnoses Order Schedule Referral to Rheumatology Outpatient Referral Routine Chronic pain of both knees Chronic pain of right knee Ordered: 04/13/2017 documented as of this encounter Results * MRI Knee wo Contrast Right (Generic) (04/27/2017 12:03 PM EST) Anatomical Region Laterality Modality Knee Right Magnetic Resonan ce Impressions 04/27/2017 3:33 PM EST 1. ??Osteoarthritis of the knee. There are marginal osteophytes and chondral defects throughout. Chondral injuries are most pronounced at the patellar surface. 2. ??No meniscal tear is identified. I have personally reviewed the image(s) and the residents interpretation and agree with the findings, Barrett Cooper at 04/27/2017 3:33 PM Narrative 04/27/2017 3:33 PM EST EXAMINATION: MRI KNEE WO CONTRAST RIGHT (GENERIC) CLINICAL HISTORY: meniscal tear TECHNIQUE: MRI of the right knee without intravenous contrast. COMPARISON: Radiograph of the right knee 02/16/2017 FINDINGS: The study is limited by difficulty in placing a dedicated knee coil on this patient. Small knee joint effusion. No intra-articular loose bodies. No popliteal cyst. CRUCIATE LIGAMENTS: No cruciate ligament disruption.. COLLATERAL LIGAMENTS: No disruption of the lateral collateral and medial collateral ligaments. TENDONS: Abnormal increased signal within the popliteus tendon is consistent with tendinopathy. The quadriceps insertion is normal. No patellar tendon injury. ?? MEDIAL COMPARTMENT: At the medial compartment, there is loss of articular cartilage at the periphery of the tibial plateau and the medial femoral condyle. Marginal osteophytes are present. Blunting of the mid body of the medial meniscus is consistent with degenerative fraying of the free margin and there is a slight degree of displacement of the meniscal mid body secondary to loss of articular cartilage. I do not however see a displaced meniscal tear. LATERAL COMPARTMENT: No displaced meniscal tear. No large chondral defects. Subtle signal alteration within the central tibial plateau may represent chondral degeneration or small chondral fissures. There is no reactive marrow edema. PATELLOFEMORAL COMPARTMENT: Deep chondral fissuring seen along the median ridge. Procedure Note Barrett Cooper MD - 04/27/2017 EXAMINATION: MRI KNEE WO CONTRAST RIGHT (GENERIC) CLINICAL HISTORY: meniscal tear TECHNIQUE: MRI of the right knee without intravenous contrast. COMPARISON: Radiograph of the right knee 02/16/2017 FINDINGS: The study is limited by difficulty in placing a dedicated knee coil onthis patient. Small knee joint effusion. No intra-articular loose bodies. No poplitealcyst. CRUCIATE LIGAMENTS: No cruciate ligament disruption.. COLLATERAL LIGAMENTS: No disruption of the lateral collateral and medial collateral ligaments. TENDONS: Abnormal increased signal within the popliteus tendon is consistent with tendinopathy. The quadriceps insertion is normal. No patellar tendon injury. MEDIAL COMPARTMENT: At the medial compartment, there is loss of articular cartilage at theperiphery of the tibial plateau and the medial femoral condyle. Marginal osteophytesare present. Blunting of the mid body of the medial meniscus is consistentwith degenerative fraying of the free margin and there is a slight degree of displacement of the meniscal mid body secondary to loss of articularcartilage. I do not however see a displaced meniscal tear. LATERAL COMPARTMENT: No displaced meniscal tear. No large chondral defects. Subtle signal alteration within the central tibial plateau may represent chondral degeneration or small chondral fissures. There is no reactivemarrow edema. PATELLOFEMORAL COMPARTMENT: Deep chondral fissuring seen along the median ridge. IMPRESSION 1. Osteoarthritis of the knee. There are marginal osteophytes andchondral defects throughout. Chondral injuries are most pronounced at thepatellar surface. 2. No meniscal tear is identified. I have personally reviewed the image(s) and the residents interpretationand agree with the findings, Barrett Cooper at 04/27/2017 3:33 PM 3:33 PM Des Joy MD IMG MRI ORDERABLES documented in this encounter Visit Diagnoses Diagnosis Chronic pain of both knees Chronic pain of right knee Chronic pain of both knees Chronic pain of right knee documented in this encounter Care Teams Assistant Director Of Security Relationship Specialty Start Date End Date Laura Hidalgo, TIE HACKER [address] [place] [address] PCP - General Internal Medicine 08/16/16 documented as of this encounter
--- OUTSIDE RECORDS SUMMARY | 2023-12-27 01:04 | XMS_ITS | Encounter Summary ---
Author Organization [facility] [place] [address] Care Team Providers Care Audiology Assistant Name Role Phone Laura Hidalgo APRN Primary Care Provider [phone] Reason for Visit * Reason Onset Date Comments Other 10/27/2017 Encounter Details Date Type Department Care Team (Late st Contact Info) Description 10/27/2017 Telephone [place] [id number] Julio Welsh MD [facility] [place] [address] Other Social History Tobacco Use Types Packs/Day [...] encounter Miscellaneous Notes * Telephone Encounter - Demetra Bass - 10/27/2017 2:30 PM EDT Caller: Laura MESSER If not Pt / Relation to pt: [facility] Best time to reach caller: before 5 any day After 230 pm (if not red arrow message) - Informed caller that if the nurse does not call back by the end of the day they will be called tomorrow AM Best number to reach caller: [phone] Reason for call: Pt was discharged from [facility] on 10/20, and is interested in checking in with Dr. Welsh sometime soonish re: her headaches documented in this encounter Plan of Treatment Not on file documented as of this encounter Visit Diagnoses Not on filedocumented in this encounter Care Teams Audiology Assistant Relationship Specialty Start Date End Date Laura Hidalgo APRN [address] [place] [address] PCP - General Internal Medicine 08/16/16 documented as of this encounter
--- OUTSIDE RECORDS SUMMARY | 2023-12-27 01:04 | XMS_ITS | Encounter Summary ---
Author Organization [facility] [place] [address] Care Team Providers Care Marriage And Family Social Worker Name Role Phone Chelsy Abbasi APRN Primary Care Provider [phone] Reason for Visit * Reason Onset Date Comments Medication Refill 07/12/2016 Encounter Details Date Type Department Care Team (Late st Contact Info) Description 07/12/2016 [place] [address] Julio Welsh MD [facility] [place] [address] Social History Tobacco Use Types Packs/Day Years [...] on filedocumented in this encounter Care Teams Marriage And Family Social Worker Relationship Specialty Start Date End Date Chelsy Abbasi APRN [address] [place] [address] PCP - General General Internal Medicine 08/11/1508/04 documented as of this encounter
--- OUTSIDE RECORDS SUMMARY | 2023-12-27 01:04 | XMS_ITS | Encounter Summary ---
Author Organization [facility] Address [facility] [place] [address] Care Team Providers Care Laser Engineer Name Role Phone Chelsy Abbasi APRN Primary Care Provider [phone] Encounter Details Date Type Department Care Team (Latest Contact Info) Description 02/19/2016 3:29 PM EDT - 02/19/2016 11:59 PM EDT Hospital Encounter XRay at [address] [place] [address] Juloi Welsh MD [facility] [place] [address] Left knee pain, unspecified chronicity Discharge Disposition: Home Social History Tobacco Use [...] Take 60 mg by mouth daily. 12/05/2023 terconazole (TERAZOL 7) 0.4 % Cream Place vaginally nightly. 0 02/16/2016 08/16/2016 baclofen (LIORESAL) 10 mg Tablet Take 1 tablet by mouth 4 times daily. 120 tablet 5 02/10/2016 08/03/2016 meloxicam (MOBIC) 7.5 mg Tablet take 1 tablet by mouth daily 30 tablet 5 02/03/2016 08/03/2016 amitriptyline (ELAVIL) 50 mg Tablet take 1 tablet by mouth every evening 30 tablet 5 01/05/2016 07/12/2016 topiramate (TOPAMAX) 25 mg Tablet take 2 tablets by mouth twice a day 120 tablet 5 11/05/2015 05/05/2016 cyanocobalamin 1,000 mcg Tablet Take 1,000 mcg by mouth daily. 11/07/2017 PROAIR HFA 90 mcg/actuation HFA Aerosol Inhaler INHALE 2 PUFFS INTO THE LUNGS DAILY NEEDED FOR WHEEZING, USE WITH SPACER 8.5 g 11 04/08/2015 12/02/2016 naproxen sodium (ANAPROX) 550 mg tablet Take 1 tablet by mouth 2 times daily as needed. 60 tablet 12 07/10/2012 08/16/2016 CALCIUM CARBONATE (TUMS ORAL)Indications:Migra ine Take 1 tablet by mouth daily. 11/07/2017 aspirin 325 mg tablet Take 325 mg by mouth daily. 11/07/2017 documented as of this encounter Plan of Treatment Not on file documented as of this encounter Procedures Procedure Name Priority Date/Time Associated Diagnosis Comments XR KNEE AP LAT AXIAL PATELLA LEFT Routine 02/19/2016 3:55 PM EDT Left knee pain, unspecified chronicity documented in this encounter Results * XR Knee 3 Views Left (02/19/2016 3:55 PM EDT) Anatomical Region Laterality Modality Knee Left Digital Radiogra phy Impressions 02/19/2016 4:04 PM EDT Joint effusion. No other acute findings. 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 TECHNIQUE: Frontal, sunrise radiographs of the bilateral knees and ??lateral radiograph of the left knee COMPARISON: None FINDINGS: There is no acute fracture, no dislocation. Visualized joint spaces are preserved. There is a small to moderate size effusion in the suprapatellar recess. 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 TECHNIQUE: Frontal, sunrise radiographs of the bilateral knees andlateral radiograph of the left knee COMPARISON: None FINDINGS: There is no acute fracture, no dislocation. Visualized joint spaces are preserved. There is a small to moderate size effusion in thesuprapatellar recess. IMPRESSION Joint effusion. No other acute findings. Julio Welsh MD IMG DX ORDERABLES documented in this encounter Visit Diagnoses Diagnosis Left knee pain, unspecified chronicity documented in this encounter Care Teams Laser Engineer Relationship Specialty Start Date End Date Chelsy Abbasi APRN [address] [place] [address] PCP - General General Internal Medicine 08/11/1508/04 documented as of this encounter
--- OUTSIDE RECORDS SUMMARY | 2023-12-27 01:04 | XMS_ITS | Encounter Summary ---
[place] [address] Care Team Providers Care Cutting Machine Tender Decorative Name Role Phone Laura Hidalgo APRN Primary Care Provider [phone] Encounter Details Date Type Department Care Team (Late st Contact Info) Description 05/03/2017 Telephone [place] [phone] Audra Bhakta LPN Social History Tobacco Use Types Packs/Day Years [...] encounter Miscellaneous Notes * Telephone Encounter - Audra Bhakta LPN - 05/03/2017 10:32 AM EST ----- Message from Karely Aviles MD sent at 05/03/2017 9:49 AM EST ----- Regarding: Mediication Could you please let patient know that she has vitamin D deficiency and a prescription has been sent to the pharmacy. To be taken 50,000 units once a week for 8 weeks followed by [id number] vitamin D3 2000 units daily. Thanks ++++++++++++++++++++++++++ RTC to Yuli with the above message. documented in this encounter Plan of Treatment Not on file documented as of this encounter Visit Diagnoses Not on filedocumented in this encounter Care Teams Cutting Machine Tender Decorative Relationship Specialty Start Date End Date Laura Hidalgo, GUNNER [address] [place] [address] PCP - General Internal Medicine 08/16/16 documented as of this encounter
--- OUTSIDE RECORDS SUMMARY | 2023-12-27 01:04 | XMS_ITS | Encounter Summary ---
Author Organization [facility] [place] [address] Care Team Providers Care Director Of Knowledge Management Name Role Phone Laura Hidalgo APRN Primary Care Provider [phone] Reason for Visit * Consultation (Routine) - Closed Specialty Diagnoses / Procedures Referred By Jay ireland Referred To Contact Rheumatology Diagnoses Chronic pain of both knees Chronic pain of right knee Olena Sandhu PA [facility] [place] [address] [facility] [address] [place] [address] Referral ID Status Reason Start Date Expiration Date V isits Requested Visits Authorized [id number] Closed Consult, Test & Treat 04/13/2017 04/13/2018 1 1 Encounter Details Date Type Department Care Team (Late st Contact Info) Description 04/27/2017 1:00 PM EST Office [place] [address] Karely Aviles MD [facility] [place] [address] Chronic pain of right knee; Myalgia; Snoring; Fatigue, unspecified type; Cerebral palsy, unspecified type; Vitamin D deficiency Social History Tobacco Use Types Packs/Day Years [...] Sign Reading Time Taken Comments Blood Pressure 106/53 04/27/2017 12:42 PM EST Pulse 91 04/27/2017 12:42 PM EST Temperature - - Respiratory Rate 18 04/27/2017 12:42 PM EST Oxygen Saturation 96% 04/27/2017 12:42 PM EST Inhaled Oxygen Concentration - - Weight 85.3 kg (188 lb) 04/27/2017 12:42 PM EST Height 148.6 cm (4' 10.5) 04/27/2017 12:[address] Body Mass Index 38.62 04/27/2017 12:42 PM EST documented in this encounter Progress Notes * Karely Aviles MD - 04/27/2017 1:00 PM EST Outpatient Rheumatology Consult CC: Asked by Olena Sandhu PA from Orthopaedics to evaluate this patient with bilateral chronic knee pain. HPI: Ms. 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 Difficult to kneel, walk (limp at baseline). Had PT for L ankle, Uses ASO brace. S/P hand surgery for L 5th trigger finger. Photosensitivity after sun exposure about 45 minutes (all life), dry mouth, dry eyes, no new hair loss. History of TIA's (seizure, R face, RUE numb), Migraine. Follows with Dr. Meyer from Neurology.On baclofen, topamax, amitriptyline and naproxen twice daily as needed. Raynaud's with color changeto white. Most pain in Knees, elbows, legs (in the calves) hurt the most. Meloxicam 7.5 mg daily for about one year. Aspirin 325 mg daily. Goes to gym 3 times a week and noticed intermittent pain in the low back. PMH: Hysterectomy due to endometriosis at age 29. Chronic left ankle pain, s/p achilles tendon lengthening , with no improvement in pain. B/L foot drop from cerebral palsy April 18, had endoscopy and was found to have inflammation of throat ans stomach lining. Diagnosed with gastritis, started omeprazole once daily. Hypomagnesemia to 50 mg twice daily Left arm due to tone 29 1996 Left Achilles tendon lengthening surgery in 2011 Hysterectomy due to endometriosis in 2006 Left hand trigger finger 2015 Status post kidney stone removal Gastritis/esophagitis on upper endoscopy in 2016 History of concussion 2015 status post fall Social Hx: per patient history form. Quit smoking 10 years ago. 1p/day for about 5 years. No alcohol. Cocaine about 15 years ago. . 3 children. On disability Family Hx: per patient history form. Mother has arthritis. Sister has crohn's disease. Mother has breast cancer, in remission for 2 years. ROS: per patient history form Gen: no night sweats, fevers, fatigue Skin: no rashes, no hair loss Mouth: denies dry mouth, no oral ulcers Eyes: no erythema or pain Lymph: no adenopathy Vascular: no Raynaud's, no digital ischemia Heart: no chest pain, palpitations Lungs: no dyspnea, cough, wheezing Abd: no pain, diarrhea, GERD, constipation : no dysuria, no flank pain Musculoskeletal: per HPI Physical Exam: Gen: Patient is awake, alert and oriented x 3, in no distress Skin: warm and dry, no rheumatologic rashes Lymph: no cervical or submandibular adenopathy Thyroid: no nodules or thyromegaly Mouth: moist mucous membranes, no oral ulcers Eyes: normal sclerae Heart: regular rate, no murmurs, rubs or gallops Lungs: clear to auscultation b/l Spine: normal ROM. Tenderness to palpation in the spine all over, more so in the lower back. Reportedly chronic. Recently noticed cracking during gym. Does have prominent veins, no bruising Musculoskeletal: No active synovitis. Leg length discrepancy R>L. R knee with limited full flexion and joint line tenderness on medical side. Tender 18/18 FM points and diffuse myofascial pain. L elbow with mild flexion deformity. Tenderness in epicondyles for years. Unable to perform provocative tests due to decreased strength in LUE. Known h/o L shoulder tendinitis. L foot drop with ASO brace with significantly decreased strength. Labs: 04/13/17 R knee xray: Very mild joint space [...] degenerative changes at the right knee as described. Impression/Recommendations: Ms. Romero is 42 yo F history of fatty liver, hypomagnesemia (on supplementation), cerebral palsy, chronic LUE and LLE weakness with foot drop, leg length discrepancy R>L Reportedly plan for steroid injection by orthopedics pending further work up including MRI and Rheumatology evaluation for chronic R knee pain. Based on history, exam, no evidence of inflammatory arthritis. Pending MRI R knee results. PossibleR knee pain probably mechanical and degenerative in nature. Check ESR, CRP, RF, CCP, LENCHO (given photosensitivity). Also TSH and Vitamin D. OA of R knee. Recommend PT, patient interested. Tylenol 1000 mg 2-3 timed daily as needed. Advised on weight loss, healthy diet and sleep. Recommend sleep study for evaluation of NATALIIA. Discussed about conservative measures for dry eyes, dry mouth. Eyedrops preservative-free 4 times daily as needed. Frequent sips of water, sugar-free candy and Biotene mouthwash/spray as needed. Discussed impression and recommendations in detail including fibromyalgia. RTC 4-6 weeks. Patient has transportation problems. Addendum: ESR, CCP, LENCHO normal/negative RF 12 (less than or equal to 14) TSH normal, vitamin D 26, low Elevated CRP 6.1 (less than or equal to 4.9), possible in the setting of BMI 38.62 MRI of the right knee without contrast 04/27/17 suggestive of osteoarthritis of the right knee and popliteal tendinopathy. IMPRESSION: 1. Osteoarthritis of the knee. There are marginal osteophytes and chondral defects throughout. Chondral injuries are most pronounced at the patellar surface. 2. No meniscal tear is identified. Abnormal increased signal within the popliteus tendon is consistent with tendinopathy. documented in this encounter Plan of Treatment Not on file documented as of this encounter Procedures Procedure Name Priority Date/Time Associated Diagnosis Comments CRP, ACUTE INFLAMMATION Routine 04/27/2017 2:29 PM EST Chronic pain of right knee ANTI-CYCLIC CITRULLINATED PEPTIDE AB Routine 04/27/2017 2:29 PM EST Chronic pain of right knee VITAMIN D, 25-HYDROXY Routine 04/27/2017 2:29 PM EST Fatigue, unspecified type SEDIMENTATION RATE Routine 04/27/2017 2: 29 PM EST Chronic pain of right knee RHEUMATOID FACTOR, QUANT Routine 04/27/2017 2:29 PM EST Chronic pain of right knee LENCHO ANTIBODY SCREEN Routine 04/27/2017 2 :29 PM EST Chronic pain of right knee TSH Routine 04/27/2017 2:29 PM EST Fatigue, unspecified type documented in this encounter Results * (ABNORMAL) Vitamin D, 25-Hydroxy (04/27/2017 2:29 PM EST) 25-OH Vit D Total 26(L) 30 - 100 ng/mL [facility] Comment: Deficient <10 ng/mL Insufficient 10 to 29 ng/mL Sufficient 30 to 100 ng/mL Potential Intoxication >100 ng/mL According to the [place] National Osteoporosis Foundation, Vitamin D concentrations >30 ng/mL are sufficient to protect bone health. ??The National Kidney Foundation has similarly stated that patients with Vitamin D concentrations <30ng/mL should be considered to be insufficient or deficient. http://Nextnav.STWA/nkf-guidelines http://Nextnav.STWA/nejm-VitD The IDS iSYS Vitamin D Immunoassay detects both 25-OH Vitamin D2 and 25-OH Vitamin D3, but only a total Vitamin D concentration is reported. Blood specimen (specimen) 04/27/2017 2:29 PM EST 04/29/2017 7:25 AM EST Narrative Resulting Agency Comment Spec In Lab Karely Aviles MD CHEMISTRY ORDERABLES Performing Organization Address [facility] Co de Phone Number [facility] [place] [address] * TSH (04/27/2017 2:29 PM EST) TSH 1.86 0.27 - 4.20 mlU/ML [facility] Blood specimen (specimen) 04/27/2017 2:29 PM EST 04/27/2017 2:32 PM EST Narrative Resulting Agency Comment Spec In Lab Karely Aviles MD CHEMISTRY ORDERABLES Performing Organization Address [facility] Phone Number [facility] [place] [address] * LENCHO (04/27/2017 2:29 PM EST) LENCHO Neg Neg [facility] Blood specimen (specimen) 04/27/2017 2:29 PM EST 04/29/2017 7:20 AM EST Narrative Resulting Agency Comment Spec In Lab Karely Aviles MD IMMUNOLOGY ORDERABLE S Performing Organization Address [facility] Co de Phone Number [facility] [place] [address] * Cyclic Citrullinated Peptide (04/27/2017 2:29 PM EST) Anti-Cyc Cit Peptide <0.5 <=4.9 unit/mL [facility] Comment: An updated CCP assay reagent was implemented 09/16/16. Please note the modified reference interval. Blood specimen (specimen) 04/27/2017 2:29 PM EST 04/27/2017 2:32 PM EST Narrative Resulting Agency Comment Spec In Lab Karely Aviles MD CHEMISTRY ORDERABLES Performing Organization Address [facility] Co de Phone Number [facility] [place] [address] * Rheumatoid factor, quant (04/27/2017 2:29 PM EST) RF 12 <=14 IU/mL [facility] Blood specimen (specimen) 04/27/2017 2:29 PM EST 04/27/2017 2:32 PM EST Narrative Resulting Agency Comment Spec In Lab Karely Aviles MD IMMUNOLOGY ORDERABLE S Performing Organization Address [facility] Co de Phone Number [facility] [place] [address] * (ABNORMAL) CRP, acute inflammation (04/27/2017 2:29 PM EST) CRP 6.1(H) <=4.9 mg/L [facility] Blood specimen (specimen) 04/27/2017 2:29 PM EST 04/27/2017 2:32 PM EST Narrative Resulting Agency Comment Spec In Lab Karely Aviles MD CHEMISTRY ORDERABLES Performing Organization Address [facility] Co de Phone Number [facility] [place] [address] * Sedimentation rate (04/27/2017 2:29 PM EST) Sed Rate 8 0 - 20 mm/hr [facility] Blood specimen (specimen) 04/27/2017 2:29 PM EST 04/27/2017 2:32 PM EST Narrative Resulting Agency Comment Spec In Lab Karely Aviles MD HEMATOLOGY ORDERABLE S [facility] [place] [address] documented in this encounter Visit Diagnoses Diagnosis Chronic pain of right knee Myalgia Mylagia and myositis, unspecified Snoring Other dyspnea and respiratory abnormality Fatigue, unspecified type Cerebral palsy, unspecified type Vitamin D deficiency Unspecified vitamin D deficiency documented in this encounter Care Teams Director Of Knowledge Management Relationship Specialty Start Date End Date Laura Hidalgo, LINUX SYSTEM ENGINEER [address] [place] [address] PCP - General Internal Medicine 08/16/16 documented as of this encounter
--- OUTSIDE RECORDS SUMMARY | 2023-12-27 01:04 | XMS_ITS | Encounter Summary ---
Author Organization [facility] [place] [address] Care Team Providers Care Broadband Engineer Name Role Phone Laura Hidalgo APRN Primary Care Provider [phone] Encounter Details Date Type Department Care Team (Late st Contact Info) Description 04/12/2017 Orders [place] [address] Des Joy MD [facility] [place] [address] Left knee pain, unspecified chronicity Social History Tobacco Use Types Packs/Day Years [...] on file documented as of this encounter Results * XR Knee Standing Alignment AP Lat [place] Left (04/13/2017 9:00 AM EST) Anatomical Region Laterality Modality Left Digital Radiogra phy Impressions 04/13/2017 9:47 AM EST Radiographically mild-appearing degenerative changes at the right knee as described. Narrative 04/13/2017 9:47 AM EST EXAMINATION: XR KNEE STANDING ALIGNMENT AP LAT [place] SKYLINE LEFT CLINICAL HISTORY: left knee pain TECHNIQUE: Separate images of the pelvis, knees and feet were acquired in the AP projection with the patient standing. These images were stitched together to form a composite image of the pelvis and legs allowing for evaluation of lower extremity alignment in the weight bearing position. Additionally, frontal standing, Jamison view, and sunrise view radiographs of the bilateral knees and lateral radiograph of the left knee were obtained. COMPARISON: Left knee radiographs dated 02/19/2016 and right knee radiographs dated 02/16/2017. FINDINGS: Very mild joint space narrowing is suggested [...] extremity mechanical axis by approximately 1.1 cm. Procedure Note Darell Bowser MD - 04/13/2017 EXAMINATION: XR KNEE STANDING ALIGNMENT AP LAT [place] SKYLINE LEFT CLINICAL HISTORY: left knee pain TECHNIQUE: Separate images of the pelvis, knees and feet were acquired inthe AP projection with the patient standing. These images were stitched togetherto form a composite image of the pelvis and legs allowing for evaluation oflower extremity alignment in the weight bearing position. Additionally,frontal standing, Jamison view, and sunrise view radiographs of the bilateralknees and lateral radiograph of the left knee were obtained. COMPARISON: Left knee radiographs dated 02/19/2016 and right kneeradiographs dated 02/16/2017. FINDINGS: Very mild joint space narrowing is suggested at the right medialcompartment on the Jamison view, with tiny associated marginal osteophytes. Nosignificant joint space narrowing is appreciated at the left knee. No fracture or dislocation. No significant left suprapatellar knee joint effusion. There appears to be a discrepancy in the lengths of the lower extremities,with the right lower extremity measuring 81.8 cm in length and the left lower extremity measuring 80.4 cm in length when measured from the superiorcortex of the femoral head to tibial plafond. There is medial deviation of the rightlower extremity mechanical axis by approximately 3.2 cm, and there is medialdeviation of the left lower extremity mechanical axis by approximately 1.1 cm. IMPRESSION Radiographically mild-appearing degenerative changes at the right kneeas described. Des Joy MD IMG DX ORDERABLES documented in this encounter Visit Diagnoses Diagnosis Left knee pain, unspecified chronicity Left knee pain, unspecified chronicity documented in this encounter Care Teams Broadband Engineer Relationship Specialty Start Date End Date Laura Hidalgo APRN [address] [place] [address] PCP - General Internal Medicine 08/16/16 documented as of this encounter
--- OUTSIDE RECORDS SUMMARY | 2023-12-27 01:04 | XMS_ITS | Encounter Summary ---
Author Organization [facility] [place] [address] Care Team Providers Care Harvest Worker Fruit Name Role Phone Chelsy Abbasi APRN Primary Care Provider [phone] Reason for Visit * Auth/Cert Specialty Diagnoses / Procedures Referred By Jay ireland Referred To Contact Diagnoses Extensor tendon subluxation left hand Procedures PRO TRANSPLANT HAND TENDON TRANSFER OR TRANSPLANT TENDON, CARPOMETACARPAL AREA OR DORSUM OF HAND W/O FREE GRAFT, EA Referral ID Status Reason Start Date Expiration Date Visits Re quested Visits Authorized [id number] 1 1 Encounter Details Date Type Department Care Team (Late st Contact Info) Description 12/26/2015 12:30 PM EDT - 12/26/2015 2:00 PM EDT Surgery [place] [address] Emery Ortiz MD [facility] [place] [address] TRANSFER OR TRANSPLANT TENDON, CARPOMETACARPAL AREA OR DORSUM OF HAND W/O FREE GRAFT, EA (WRVU 6.9) Social History Tobacco Use Types Packs/Day Years [...] Sign Reading Time Taken Comments Blood Pressure 105/66 12/26/2015 12:28 PM EDT Pulse 70 12/26/2015 12:28 PM EDT Temperature 36 ??C (96.8 ??F) 12/26/2015 10:39 AM EDT Respiratory Rate 16 12/26/2015 12:28 PM EDT Oxygen Saturation 95% 12/26/2015 12:28 PM EDT Inhaled Oxygen Concentration - - Weight 88.9 kg (196 lb) 12/26/2015 10:39 AM EDT Height 152.4 cm (5') 12/26/2015 10:39 AM EDT Body Mass Index 38.28 12/26/2015 10:39 AM EDT documented in this encounter Discharge Instructions * Discharge Instructions* Frank Styles RN - 12/26/2015 2:39 PM EDT You [...] closest emergency room or call the hospital vacuum drier operator at [phone] and ask for physician decision support analyst covering for your physician. Questions or problems after 5pm or on a weekend: Call the [facility] vacuum drier operator at and ask for the physician decision support analyst covering for your doctor. Upper Extremity Nerve [...] after hours and ask for the anesthesiologist decision support analyst. * Patient Instructions* Tab Mendoza - 12/26/2015 [...] on them. You can also take an [id number] stool softener, colace or senna, to facilitate [...] prior to the appointment Call the clinic (#[phone]) if (Mon-Fri 8am-5pm): 1. You have a fever > 101.5 or experience chills ??? Increased discharge from the incision ??? Any redness or swelling around the incision ??? Increased pain or change in the pain that is not controlled by your pain meds WHERE TO CALL WITH QUESTIONS OFF HOURS [facility] Ask for the resident decision support analyst for your provider Future Appointments Date Time Provider Department Center 01/07/2016 3:25 PM Emery Ortiz MD [facility] 02/19/2016 2:30 PM Julio Welsh MD [facility] documented in this encounter Medications at [...] Ortiz MD - 12/26/2015 2:34 PM EDT [facility] Operative Note Patient Name: Yuli Romero : [id number] MR#: [id number] Case Date: 12/26/2015 Surgeon: Surgeon(s) and Role: [...] A preoperative timeout was performed as per [facility] protocol. Her left arm was then exsanguinated [...] Operative Note Patient Name: Yuli Romero : [id number] MR#: [id number] Case Date: 12/26/2015 Surgeon: Surgeon(s) and Role: [...] of Procedure), Routine lidocaine-EPINEPHrine 1 %-1:200,000 injection ONCE PRN, Starting on Tue12/26/15 at 1348, Until Tue12/26/15 at 1730, Intra-Operative (Intra-Procedure), Routine Given 12/26/2015 2:04 PM EDT 3 mLs 19- Surgical Site Given 12/26/2015 1:56 PM EDT 6 mLs 19 - Surgical Site Given 12/26/2015 1:48 PM EDT 4 mLs 19 - Surgical Site midazolam (PF) (VERSED) 1 mg/mL injection 1-4 [...] Routine 1457 (Given - Provid er: Ada Ruvalcaba RN) promethazine (PHENERGAN) injection 12.5 mg 12.5 [...] Recovery documented in this encounter Care Teams Harvest Worker Fruit Relationship Specialty Start Date End Date Chelsy Abbasi APRN [address] [place] [address] PCP - General General Internal Medicine 08/11/1508/04 documented as of this encounter
--- OUTSIDE RECORDS SUMMARY | 2023-12-27 01:04 | XMS_ITS | Encounter Summary ---
Author Organization [facility] [place] [address] Care Team Providers Care Solar Development Engineer Name Role Phone Chelsy Abbasi APRN Primary Care Provider [phone] Reason for Visit * Reason Comments Left Hand Pain left small finger pa in sp a1 dana release dos 05/2015 doi 04/2015 Encounter Details Date Type Department Care Team (Late st Contact Info) Description 12/03/2015 4:00 PM EDT Office Visit [place] [address] Sherif Ortiz MD [facility] [address] [place] [address] Nontraumatic extensor tendon dislocation of left hand Social History Tobacco Use Types Packs/Day Years [...] Sign Reading Time Taken Comments Blood Pressure 102/50 12/03/2015 3:17 PM EDT Pulse 85 12/03/2015 3:17 PM EDT Temperature - - Respiratory Rate - - Oxygen Saturation - - Inhaled Oxygen Concentration - - Weight 88.9 kg (196 lb) 12/03/2015 3:17 PM EDT s tated Height 152.4 cm (5') 12/03/2015 3:17 PM EDT stat ed Body Mass Index 38.28 12/03/2015 3:17 PM EDT documented in this encounter Progress Notes * Earnestnie [place] RN - 12/03/2015 3:51 PM EDT Pro op teaching for general hand/ surgery,Nontraumatic extensor tendon dislocation of left hand . Emphasis placed on post op hand elevation with hand above heart,fingers above palm,palm above wrist and wrist above elbow. This was demonstrated. Stressed no lifting of operative hand. Reviewed suggestions for taking post op pain medication.(see below note) Questions solicited and answered to patient satisfaction. Written material provided. Patient knows to call with any additional questions or concerns. Of note patient [place] hour away. 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 She will attempt to avoid any narcotic post op.She will update her PCP onceshe has a surgical date. May need to contact them post op if patient having pain control concerns. * Sherif Ortiz MD - 12/03/2015 3:35 PM EDT Yuli Romero presents for evaluation of her left hand. She has a subluxing extensor tendon over the MCP joint, thought to be caused by an abnormal connection of juncturae tendineae at this site. She was treated with steroid injection at the last visit and she had some period of relief, but her symptoms have rapidly recurred and are quite symptomatic. She reports that her whole hand is now sore from this. She reports that she does have a history of nerve damage in her left arm and a history of cerebral palsy. This problem did start after she dropped a heavy box onto her hand. Examination reveals obvious subluxation of either an aberrant EDC tendon or a distal junctural attachment over the MCP region. This is very reproducible and it does snap and pop through each cycle of motion. She was offered the option of surgical management for this with proximal release of her junctura or realignment of her extensor tendon to improve tracking and reduce the subluxation and snapping. It is the hope this will help her pain. I would like to do this with her sedated and awake and able to move her finger during surgery to confirm that correction has taken place. She is aware that with surgery there are potential risks and these include but are not limited to infection, nerve injury, stiffness, sensitive scar and recurrent subluxation of the tendon. She wishes to proceed and we will schedule this to be done at a time that is convenient for her. documented in this encounter Plan of Treatment Not on file documented as of this encounter Procedures Procedure Name Priority Date/Time Associated Diagnosis Comments TRANSF OR TRANSPL TENDON, CMC JOINT AREA OR DORSUM HAND W/O FREE GRFT Routine 12/03/2015 3:44 PM EDT documented in this encounter Visit Diagnoses Diagnosis Nontraumatic extensor tendon dislocation of left hand documented in this encounter Care Teams Solar Development Engineer Relationship Specialty Start Date End Date Chelsy Abbasi APRN [address] [place] [address] PCP - General General Internal Medicine 08/11/1508/04 documented as of this encounter
--- OUTSIDE RECORDS SUMMARY | 2023-12-27 01:04 | XMS_ITS | Encounter Summary ---
[place] [address] Care Team Providers Care Crowning Inspector Name Role Phone Laura Hidalgo APRN Primary Care Provider [phone] Reason for Referral * Consultation (Routine) - Closed Specialty Diagnoses / Procedures Referred By Contac t Referred To Contact Radiology Diagnoses Chronic pain of both knees Chronic pain of right knee Procedures MRI Knee wo Contrast Right (Generic) Olena Sandhu PA [facility] [place] [address] [place] [address] Referral ID Status Reason Start Date Expiration Date V isits Requested Visits Authorized [id number] Closed Specialty Service Requested 04/13/2017 07/12/2017 1 1 Reason for Visit * Consultation (Routine) - Closed Specialty Diagnoses / Procedures Referred By Contac t Referred To Contact Radiology Diagnoses Chronic pain of both knees Chronic pain of right knee Procedures MRI Knee wo Contrast Right (Generic) Olena Sandhu PA [facility] [place] [address] [place] [address] Referral ID Status Reason Start Date Expiration Date V isits Requested Visits Authorized [id number] Closed Specialty Service Requested 04/13/2017 07/12/2017 1 1 Encounter Details Date Type Department Care Team (Late st Contact Info) Description 04/27/2017 10:47 AM EST - 04/27/2017 11:59 PM EST [place] [address] Des Joy MD [facility] [place] [address] Chronic pain of both knees; Chronic pain of right knee Discharge Disposition: [...] Take 60 mg by mouth daily. 12/05/2023 cholecalciferol, Vitamin D3, 50,000 unit CapsuleIndications:Desi min D deficiency Take 1 capsule by mouth once a week. 8 capsule 05/03/2017 06/09/2021 omeprazole (PRILOSEC) 40 mg Capsule, Delayed Release(E.C.) take 1 capsule by mouth once daily 0 04/18/2017 11/07/2017 meloxicam (MOBIC) 7.5 mg Tablet take 1 [...] Procedure Name Priority Date/Time Associated Diagnosis Comments MRI KNEE RIGHT WO CONTRAST Routine 04/27/2017 12:03 PM EST Chronic pain of both knees Chronic pain of right knee documented in this encounter Results * MRI Knee wo [...] knee documented in this encounter Care Teams Crowning Inspector Relationship Specialty Start Date End Date Laura Hidalgo, GUNNER [address] [facility] [place] [address] PCP - General Internal Medicine 08/16/16 documented as of this encounter
--- OUTSIDE RECORDS SUMMARY | 2023-12-27 01:04 | XMS_ITS | Encounter Summary ---
Author Organization [facility] [place] [address] Care Team Providers Care Console Operator Name Role Phone Chelsy Abbasi APRN Primary Care Provider [phone] Reason for Visit * Auth/Cert Specialty Diagnoses / Procedures Referred By Jay ireland Referred To Contact Diagnoses Extensor tendon subluxation left hand Procedures PRO TRANSPLANT HAND TENDON TRANSFER OR TRANSPLANT TENDON, CARPOMETACARPAL AREA OR DORSUM OF HAND W/O FREE GRAFT, EA Referral ID Status Reason Start Date Expiration Date Visits Re quested Visits Authorized [id number] 1 1 Encounter Details Date Type Department Care Team (Late st Contact Info) Description 12/26/2015 1:13 PM EDT Anesthesia Event [facility] [place] [address] Isidro Garcia MD [facility] [address] Jitendra Ware MD [facility] [place] [address] Anesthesia Record Procedure Summary Procedure Name Responsible Anesthesiologist Anesthesia Start Time Anesthesia Stop Time TRANSFER OR TRANSPLANT TENDON, CARPOMETACARPAL AREA OR DORSUM OF HAND W/O FREE GRAFT, EA (WRVU 6.9) (Left: Hand) Iisdro Garcia MD 12/26/15 1313 12/26/15 1426 Events Date Time Event Comment 12/26/2015 1042 1313 Start 1315 AN Verify 1315 An Start Data 1322 Anesthesia Ready 1331 An Tourn Inflated 1340 Quick Note Pt awake, compl aining pain in surgical hand. Medication given. Dr. Ortiz ready for patient to move her fingers for him to assess. Pt reversed with Narcan & Flumazenil with good effect. Dr. Ortiz added local to two sites for better pain relief. 1345 An Tourn Deflated 14 minutes 1420 an stop data 1426 Recovery or ICU Handoff Ashley ent care was transferred to the destination unit staff after review of the patient's medical history, current anesthetic/surgical status and plan, according to the Provider Handoff Checklist. 1426 Stop Meds Name Total Midazolam 2 mg fentaNYL 100 mcg IV Lidocaine 40 mg Propofol 50 mg Ondansetron 8 mg Dexamethasone 4 mg Dexmedetomidine 8 mcg Propofol INF 88.9 mg ceFAZolin (ANCEF) 2 gram/50 mL infusion 2 g nalOXone 120 mcg Flumazenil 0.2 mg Ketorolac 15 mg lactated ringers infusion 1,000 mL 600 m L * Agents Name O2 Sevoflurane (et) * Blood No blood administrations on file. Lines, Drains, and Airways Type Details Placement Removal Incision 12/26/15; fifth fing er; 02/01/22 (LDA cleanup utility RA#[id number]); 1715 (LDA cleanup utility RA#[id number]) 12/26/15 0000 by Yuni Ingram RN 02/01/22 1715 by Daniel Osuna Incision 12/26/15; palm; 02/01/22 (LDA cleanup utility RA#[id number]); 1715 (LDA cleanup utility RA#[id number]) 12/26/15 0000 by Yuni Ingram RN 02/01/22 1715 by Daniel Osuna (RETIRED) Peripheral IV Line - Single Lumen 12/26/15; 1115; median cubital vein right (antecubital fossa); apep-rrb-zanazc catheter system; 20 gauge, 1 in length; Denise Quintana RN; distraction, intradermal injection, tolerated well; 12/26/15; 1524 12/26/15 1115 by Ralph Talbert RN 12/26/15 1524 by Ada Ruvalcaba RN documented in this encounter Social History Tobacco Use Types Packs/Day Years [...] PM EST documented as of this encounter OR Notes * Anesthesia Postprocedure Evaluation - Isidro Garcia MD - 12/26/2015 2:40 PM EDT [facility] Department of Anesthesiology Post-procedure Note Patient: Yuli Romero Procedure Summary Date Anesthesia Start Anesthesia Stop Room / Location 12/26/15 1313 1426 [facility] OR [address] [place] [address] [facility] Procedure Diagnosis Surgeon Responsible Provider TRANSFER OR TRANSPLANT TENDON, CARPOMETACARPAL AREA OR DORSUM OF HAND W/O FREE GRAFT, EA (Left Hand); TENDON SHEATH INCISION (TRIGGER FINGER) (Left Finger) (Extensor tendon subluxation left hand) Sherif Ortiz MD Sites, Brian D, MD All Anesthesia Providers: Anesthesiologist: Isidro Garcia MD TECHNICIAN TRAINEE: Lilo Carrillo CRNA Last (1hr) Vitals: BP 122/59 (12/26/15 1422) Temp 36.2 ??C (97.2 ??F) (12/26/15 1422) Pulse 82 (12/26/15 1422) Resp 16 (12/26/15 1422) SpO2 96 % (12/26/15 1422) Patient Location: PACU/[facility] Level of Consciousness: Lethargic Pain Management: Satisfactory Analgesia PONV: None Cardiovascular Status: At Baseline Respiratory Status: Room Air Postoperative Fluid Status: Intravascular EUvolemia Possible Anesthetic Complications: NONE apparent at time of evaluation Final Primary Anesthesia Type: MAC (The anesthetic type performed was the same as planned.) Comments: Patient has some sensation of asthma flare. She has mild wheezing. We will give her an albuterol treatment * Anesthesia Procedure Notes - Isidro Garcia MD - 12/26/2015 12:25 PM EDT Associated Order(s): ANESTHESIA BLOCK Procedure: Anesthesia Block Block: Primary Anesthetic, ulnar nerve block Indication/Prep Position: supine Prep: chlorhexidine, patient draped, mask, cap, sterile gloves, hand hygeine Laterality: left Skin Medication lidocaine 1% 3 ml Injection Information Ultrasound Guidance: live and [id number]-ng-wjpcn Ultrasound guidance was used to identify the targeted neuronal structure. Ultrasound was also used to identify needle positon and to identify surrounding tissue (bone, muscle, and blood vessels) to prevent inadvertent intraneural or intravascular needle placement and injection. The spread of local anesthetic was confirmed with live ultrasound imaging. Needle Length: 5 cm Gauge: 22 Needle Type: D-fshlh-pphea Medication injection made incrementally with aspirations. Nerve infiltration solution through a needle Ropivicaine 0.5% 10 mL Additional Notes Single injection; No pain or paresthesia. No needle:nerve contact per ultrasound. Drug surrounded ulnar nerve. Resident: Fellow: Attending Physician: Jose ~~~~~~~~~~~~~~~~~~~~~~~~~~~~~~~~~~~~~~~~~~~~~~~~~~~~~~~~~~~~ * Anesthesia Preprocedure Evaluation - Isidro Garcia MD - 12/26/2015 10:41 AM EDT Pre-Anesthesia Evaluation for: Yuli harry 40 y.o. female. Procedure(s): TRANSFER OR TRANSPLANT TENDON, CARPOMETACARPAL AREA OR DORSUM OF HAND W/O FREE GRAFT, EA Patient Active Problem List Diagnosis ??? Nontraumatic extensor tendon dislocation of left hand ??? H/O alcohol abuse ??? H/O cocaine abuse ??? Pain in finger of left hand ??? S/P hysterectomy ??? Acute retinal necrosis of left eye ??? Transient visual disturbance, right ??? Afferent pupillary defect, left eye ??? CIS - Herpes infection, left eye blind ??? CIS - infantile stroke/hemiplegia syndrome ??? CIS - migraine Past Medical History Diagnosis Date ??? Alcohol abuse extensive prior use ??? Endometriosis ??? Genital herpes ??? H/O: depression ??? H/O: substance abuse ??? 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 Herpes infection of left eye, now with retinopathy ??? Migraine worsening noted in ??? Nonepileptic episode seen by Dr. Kwon in ??? Osteoporosis Past Surgical History Procedure Laterality Date ??? Achilles tendon surgery 06/09/2010 lengthening of L achilles @ [facility] ??? Hysterectomy 2002 ??? Eye surgery 1996 L eye for herpes retininopathy ??? [place] tooth extraction 1995 ??? Dilation and curettage of uterus 2002 ??? Hand surgery Left 05/2015 tringer finger--pinky Social History Substance Use Topics ??? Smoking status: Never Smoker ??? Smokeless tobacco: Never Used ??? Alcohol use No Comment: Sober since 2002. History Drug Use No Allergies Allergen Reactions ??? Allergenic Extracts Shortness Of Breath Pollen and dust Smoke--wheezing, water eyes ??? Bactrim [Sulfamethoxazole-Trimethoprim] seizure ??? Diflucan [Fluconazole] Unknown reaction Medications: MAR and/or home medications have been reviewed. Physical Exam: There were no vitals filed for this visit. There is no height or weight on file to calculate BMI. Airway Assessment: Mallampati: II TM distance: >3 FB Neck ROM: full Cardiovascular Assessment: Rhythm: regular Pulmonary Assessment: breath sounds clear to auscultation Dental Assessment: Misc Assessment: IV access: Peripheral line Anesthesia Plan: ASA 2 MAC, with a(n) intravenous induction I have seen and examined the patient. I have reviewed the medical record and pertinent laboratory information. I have noted the major medical issues to include CP, TIA history, poly substance abuse and obesity. I have reviewed risks from minor to major as outlined in the anesthesia consent form. I have highlighted risks related to perioperative sedation, opioid therapy, and the potential need to transition to GA. The patient acknowledged these risks and would like to proceed with the anesthesiaplan. Addendum: Surgeon requesting distal UNB to facilitate surgery. Patient's pre- existing neurological dysfunction is CP related and likely central. Patient signed consent to approve the nerve block and associated risks Informed Consent: Anesthetic plan and risks discussed with patient. Plan discussed with TECHNICIAN TRAINEE. PAT Staff Note documented in this encounter Plan of Treatment Not on file documented as of this encounter Procedures Procedure Name Priority Date/Time Associated Diagnosis Comments ANESTHESIA BLOCK Routine 12/26/2015 12:2 7 PM EDT Procedure Note - Isidro Garcia MD - 12/26/2015 12:25 PM EDTThis note is in progress. Procedure: Anesthesia Block Block: Primary Anesthetic, ulnar nerve block Indication/Prep Position: supine Prep: chlorhexidine, patient draped, mask, cap, sterile gloves, handhygeine Laterality: left Skin Medication lidocaine 1% 3 ml Injection Information Ultrasound Guidance: live and otf-qg-fbcnd Ultrasound guidance was used to identify the targeted neuronalstructure. Ultrasound was also used to identify needle positon and toidentify surrounding tissue (bone, muscle, and blood vessels) to preventinadvertent intraneural or intravascular needle placement and injection.The spread of local anesthetic was confirmed with live ultrasoundimaging. Needle Length: 5 cm Gauge: 22 Needle Type: K-aiftz-zexmz Medication injection made incrementally with aspirations. Nerve infiltration solution through a needle Ropivicaine 0.5% 10 mL Additional Notes Single injection; No pain or paresthesia. No needle:nerve contact perultrasound. Drug surrounded ulnar nerve. Resident: Fellow: Attending Physician: Sites ~~~~~~~~~~~~~~~~~~~~~~~~~~~~~~~~~~~~~~~~~~~~~~~~~~~~~~~~~~~~ documented in this encounter Visit Diagnoses Not on filedocumented in this encounter Administered Medications Inactive Administered Medications - up to 3 most recent administrations Medication Order MAR Action Action Date Dose Rate Site ceFAZolin (ANCEF) 2 gram/50 mL infusion 1 dose, Starting on Tue12/26/15 at 1048, Until Tue12/26/15 at 1322, RALPH TALBERT: cabinet override Given 12/26/2015 1:22 PM EDT 2 g dexamethasone (DECADRON) injection PRN, Starting on Tue12/26/15 at 1328, Until Tue12/26/15 at 1426, Anesthesia Intra-op, Routine Given 12/26/2015 1:28 PM EDT 4 mg dexmedetomidine (PRECEDEX) injection PRN, Starting on Tue12/26/15 at 1316, Until Tue12/26/15 at 1426, Anesthesia Intra-op, Routine Given 12/26/2015 1:28 PM EDT 4 mcg Given 12/26/2015 1:16 PM EDT 4 mcg fentaNYL 50 mcg/mL multi-dose injection PRN, Starting on Tue12/26/15 at 1325, Until Tue12/26/15 at 1426, Pain, Anesthesia Intra-op, Routine Given 12/26/2015 1:43 PM EDT 50 mcg Given 12/26/2015 1:30 PM EDT 25 mcg Given 12/26/2015 1:25 PM EDT 25 mcg flumazenil (ROMAZICON) injection PRN, Starting on Tue12/26/15 at 1348, Until Tue12/26/15 at 1426, Anesthesia Intra-op, Routine Given 12/26/2015 1:48 PM EDT 0.2 mg ketorolac (TORADOL) injection PRN, Starting on Tue12/26/15 at 1343, Until Tue12/26/15 at 1426, Pain, Anesthesia Intra-op, Routine Given 12/26/2015 1:43 PM EDT 15 mg lidocaine (PF) (XYLOCAINE) 100 mg/5 mL (2 %) injection PRN, Starting on Tue12/26/15 at 1316, Until Tue12/26/15 at 1426, Anesthesia Intra-op, Routine Given 12/26/2015 1:16 PM EDT 40 mg midazolam (PF) (VERSED) 1 mg/mL multi-dose injection PRN, Starting on Tue12/26/15 at 1325, Until Tue12/26/15 at 1426, Sleep, Anesthesia Intra-op, Routine Given 12/26/2015 1:43 PM EDT 1.5 mg Given 12/26/2015 1:25 PM EDT 0.5 mg nalOXone (NARCAN) injection PRN, Starting on Tue12/26/15 at 1348, Until Tue12/26/15 at 1426, Opioid Reversal, Anesthesia Intra-op, Routine Given 12/26/2015 1:50 PM EDT 40 mcg Given 12/26/2015 1:48 PM EDT 80 mcg ondansetron (ZOFRAN) injection PRN, Starting on Tue12/26/15 at 1338, Until Tue12/26/15 at 1426, Nausea, Anesthesia Intra-op, Routine Given 12/26/2015 1:38 PM EDT 8 mg propofol (DIPRIVAN) 10 mg/mL bolus injection (Anesthesia) PRN, Starting on Tue12/26/15 at 1317, Until Tue12/26/15 at 1426, Anesthesia Intra-op Given 12/26/2015 1:17 PM EDT 50 mg propofol (DIPRIVAN) infusion CONTINUOUS PRN, Starting on Tue12/26/15 at 1320, Until Tue12/26/15 at 1426, Anesthesia Intra-op, Routine New Bag 12/26/2015 1:20 PM EDT 100 mcg/kg/min 53.3 mL/hr documented in this encounter Care Teams Console Operator Relationship Specialty Start Date End Date Chelsy Abbasi APRN [address] [place] [address] PCP - General General Internal Medicine 08/11/1508/04 documented as of this encounter
--- OUTSIDE RECORDS SUMMARY | 2023-12-27 01:04 | XMS_ITS | Encounter Summary ---
Author Organization [facility] Address [facility] [place] [address] Care Team Providers Care Sewing Machine Attachment Tester Name Role Phone Laura Hidalgo APRN Primary Care Provider Encounter Details Date Type Department Care Team (Late st Contact Info) Description 04/13/2017 8:29 AM EST - 04/13/2017 11:59 PM EST Hospital Encounter XRay at [address] [place] [address] Des Joy MD [facility] [place] [address] Left knee pain, unspecified chronicity Discharge Disposition: [...] 2 times daily as needed. 30 tablet 08/16/2016 10/22/2020 cyanocobalamin 1,000 mcg Tablet Take 1,000 mcg by mouth daily. 11/07/2017 CALCIUM CARBONATE (TUMS ORAL)Indications:Migrai ne Take 1 tablet by mouth daily. 11/07/2017 aspirin 325 mg tablet Take 325 mg by mouth daily. 11/07/2017 documented as of this encounter Plan of Treatment Not on file documented as of this encounter Procedures Procedure Name Priority Date/Time Associated Diagnosis Comments XR KNEE STANDING ALIGNMENT AP LAT [place] SKYLINE LEFT Routine 04/13/2017 9:00 AM EST Left knee pain, unspecified chronicity documented in this encounter Results * XR Knee Standing Alignment AP Lat [place] Left (04/13/2017 9:00 AM EST) Anatomical Region [...] chronicity documented in this encounter Care Teams Sewing Machine Attachment Tester Relationship Specialty Start Date End Date Laura Hidalgo, [address]UNNER [address] [place] [address] PCP - General Internal Medicine 08/16/16 documented as of this encounter
--- OUTSIDE RECORDS SUMMARY | 2023-12-27 01:04 | XMS_ITS | Encounter Summary ---
Author Organization [facility] [place] [address] Care Team Providers Care Slab Off Mill Tender Name Role Phone Laura Hidalgo APRN Primary Care Provider [phone] Encounter Details Date Type Department Care Team (Late st Contact Info) Description 08/16/2016 11:00 AM EDT [place] [id number] uJlio Welsh MD [facility] [place] [address] Intractable migraine with aura without status migrainosus [...] Sign Reading Time Taken Comments Blood Pressure 133/66 08/16/2016 9:47 AM EDT Pulse 96 08/16/2016 9:47 AM EDT Temperature - - Respiratory Rate - - Oxygen Saturation - - Inhaled Oxygen Concentration - - Weight 87.5 kg (193 lb) 08/16/2016 9:47 AM EDT Height 149.9 cm (4' 11) 08/16/2016 9:47 AM EDT reported Body Mass Index 38.98 08/16/2016 9:47 AM EDT documented in this encounter Patient Instructions * Patient Instructions* Julio Welsh MD - 08/16/2016 11:00 AM EDT I think you're doing quite well. Your vision, your migraines, and also the weakness on your left side all appear to be stable. Please continue the medicines you're taking Please continue with your exercise program at the gym I would like to see you back in 6 months or sooner if necessary. Julio Welsh MD [place] [address] Pager: [phone], #[phone] Email: [email or web address] documented in this encounter Progress Notes * Julio Welsh MD - 08/16/2016 11:00 AM EDT Neurology clinic note Chief [...] needs acute treatment every few days to weeks.. She got a hearing aid for her left ear which is working well. She continues to have some musculoskeletal symptoms particularly in her paretic side . Past medical history: Patient Active Problem List [...] with son. On disability Physical Exam: BP 133/66 (BP Location (NBP): Right arm, Patient Position: Sitting, BP Cuff Sizes: Adult (25-34 cm)) Pulse 96 Ht (!) 149.9 cm (4' 11) Comment: reported Wt 87.5 kg (193 lb) BMI 38.98 kg/m2. Head, eyes, ears, nose and throat were normal. There was no significant tenderness today. Heart and lungs were normal. 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 There is some rather nonspecific tenderness around the left knee She is mentally at baseline. Speech [...] Outpatient Prescriptions Medication Sig Dispense Refill ??? multivitamin (THERAGRAN) Tablet Take 1 tablet by mouth daily. ??? baclofen (LIORESAL) 10 mg Tablet Take 1 tablet by mouth 4 times daily. 120 tablet 5 ??? meloxicam (MOBIC) 7.5 mg Tablet take 1 tablet by mouth daily. 30 tablet 5 ??? amitriptyline (ELAVIL) 50 mg Tablet take 1 tablet by mouth every evening 30 tablet 5 ??? topiramate (TOPAMAX) 25 mg Tablet take 2 tablets by mouth twice a day 120 tablet 5 ??? oxyCODONE (ROXICODONE) 5 mg Tablet Take 0.5-1 tablets by mouth every 4 hours as needed for Pain. Take the smallest dose possible to control your pain. As your pain improves, take smaller doses and increase the time between doses. You may break the tablet to achieve a smaller dose. 8 tablet 0 ??? cyanocobalamin 1,000 mcg Tablet Take 1,000 mcg by mouth daily. ??? PROAIR HFA 90 mcg/actuation HFA Aerosol Inhaler INHALE 2 PUFFS INTO THE LUNGS DAILY NEEDED FOR WHEEZING, USE WITH SPACER 8.5 g 11 ??? naproxen sodium (ANAPROX) 550 mg tablet Take 1 tablet by mouth 2 times daily as needed. 60 tablet 12 ??? CALCIUM CARBONATE (TUMS ORAL) Take 1 [...] hemiparesis and cerebral palsy are stable. She has some arthritic pain in her left knee. X-rays were unremarkable. She has been to physical therapy. She will continue going tothe gym. She can use hot and cold [...] needed. Julio Welsh MD [place] [address] Pager: [phone], #[phone] Email: [email or web address] [place] cc: Laura Hidalgo APRN documented in this encounter Plan of Treatment Not on file documented as of this encounter Visit Diagnoses Diagnosis Intractable migraine with aura without status migrainosus Migraine with aura, with intractable migraine, so stated, without mention of status migrainosus documented in this encounter Care Teams Slab Off Mill Tender Relationship Specialty Start Date End Date Laura Hidalgo, CARDIO CLINICIAN [address] [place] [address] PCP - General Internal Medicine 08/16/16 documented as of this encounter
--- OUTSIDE RECORDS SUMMARY | 2023-12-27 01:04 | XMS_ITS | Encounter Summary ---
Author Organization [facility] [place] [address] Care Team Providers Care Clerical Warehouseman Name Role Phone Chelsy Abbasi APRN Primary Care Provider [phone] Reason for Visit * Reason Comments Medication Refill Encounter Details Date Type Department Care Team (Late Contact Info) Description 05/05/2016 [place] [address] Julio Welsh MD [facility] [address] Social History Tobacco Use Types Packs/Day Years [...] on filedocumented in this encounter Care Teams Clerical Warehouseman Relationship Specialty Start Date End Date Chelsy Abbasi APRN [address] [place] [address] PCP - General General Internal Medicine 08/11/1508/04 documented as of this encounter
--- OUTSIDE RECORDS SUMMARY | 2023-12-27 01:04 | XMS_ITS | Encounter Summary ---
Author Organization [facility] [place] [address] Care Team Providers Care Ocean Biologist Name Role Phone Laura Hidalgo APRN Primary Care Provider [phone] Reason for Visit * Reason Onset Date Comments Medication Refill 07/12/2016 Encounter Details Date Type Department Care Team (Late st Contact Info) Description 07/12/2016 [place] [phone] Julio Welsh MD [facility] [place] [address] Medication Refill Social History Tobacco Use Types [...] encounter Miscellaneous Notes * Telephone Encounter - Almita Choudhury, [facility] - 07/12/2016 12:12 PM EST I called the pharmacy and the patient. She needed a new script for amitriptyline (ELAVIL) 50 mg Tablet. Refill request prepped and sent to Dr. Welsh for review and signature. * Telephone Encounter - Zach Del Toro - 07/12/2016 11:44 AM EST Patient stated the pharmacy has been trying to contact us about this refill? Patient is completely out; took her last dose last night. Caller: Patient Best time to reach caller if there are questions with medication refill request: Any Best number to reach caller if needed: [phone] Name of Med: Topamax Strength of Pills: 25 mg Dosing Directions: Take 2 tablets by mouth twice a day 30 or 90 Day: 30 days Pharmacy: [place], [place] Last Appointment: 02/19/2016 Next Appointment: 08/16/2016 Is Patient out of Medication?: YES documented in this encounter Plan of Treatment Not on file documented as of this encounter Visit Diagnoses Not on filedocumented in this encounter Care Teams Ocean Biologist Relationship Specialty Start Date End Date Laura Hidalgo APRN [address] [place] [address] PCP - General Internal Medicine 08/16/16 documented as of this encounter
--- OUTSIDE RECORDS SUMMARY | 2023-12-27 01:04 | XMS_ITS | Encounter Summary ---
Author Organization [facility] [place] [address] Care Team Providers Care Sealer Sander Name Role Phone Laura Hidalgo APRN Primary Care Provider [phone] Reason for Visit * Reason Onset Date Comments Medication Refill 01/31/2017 Encounter Details Date Type Department Care Team (Late st Contact Info) Description 01/31/2017 [place] [address] Julio Welsh MD [facility] [place] [address] Social History Tobacco Use Types Packs/Day Years [...] on filedocumented in this encounter Care Teams Sealer Sander Relationship Specialty Start Date End Date Laura Hidalgo APRN [address] [place] [address] PCP - General Internal Medicine 08/16/16 documented as of this encounter
--- OUTSIDE RECORDS SUMMARY | 2023-12-27 01:04 | XMS_ITS | Encounter Summary ---
Author Organization [facility] [place] [address] Care Team Providers Care Vending Manager Name Role Phone Chelsy Abbasi APRN Primary Care Provider [phone] Reason for Visit * Reason Comments Medication Refill Encounter Details Date Type Department Care Team (Late Contact Info) Description 02/03/2016 [place] [address] Julio Welsh MD [facility] [place] [address] Social History Tobacco Use Types Packs/Day Years [...] on filedocumented in this encounter Care Teams Vending Manager Relationship Specialty Start Date End Date Chelsy Abbasi APRN [address] [place] [address] PCP - General General Internal Medicine 08/11/1508/04 documented as of this encounter
--- OUTSIDE RECORDS SUMMARY | 2023-12-27 01:04 | XMS_ITS | Encounter Summary ---
Author Organization [facility] [place] [address] Care Team Providers Care Bag Shaker Name Role Phone Laura Hidalgo APRN Primary Care Provider [phone] Reason for Visit * Reason Comments Medication Refill Encounter Details Date Type Department Care Team (Late st Contact Info) Description 07/10/2017 [place] [address] Julio Welsh MD [facility] [place] [address] Social History Tobacco Use Types Packs/Day Years [...] on filedocumented in this encounter Care Teams Bag Shaker Relationship Specialty Start Date End Date Laura Hidalgo APRN [address] [place] [address] PCP - General Internal Medicine 08/16/16 documented as of this encounter
--- OUTSIDE RECORDS SUMMARY | 2023-12-27 01:04 | XMS_ITS | Encounter Summary ---
Author Organization [facility] [place] [address] Care Team Providers Care Trading Specialist Name Role Phone Chelsy Abbasi APRN Primary Care Provider [phone] Encounter Details Date Type Department Care Team (Late st Contact Info) Description 02/19/2016 2:30 PM EDT [place] [phone] Julio Welsh MD [facility] [place] [address] Intractable migraine with aura without status migrainosus; Left knee pain, unspecified chronicity Social History [...] Sign Reading Time Taken Comments Blood Pressure 122/65 02/19/2016 2:07 PM EDT Pulse 98 02/19/2016 2:07 PM EDT Temperature - - Respiratory Rate - - Oxygen Saturation - - Inhaled Oxygen Concentration - - Weight 89.8 kg (198 lb) 02/19/2016 2:07 PM EDT Height 149.9 cm (4' 11) 02/19/2016 2:07 PM EDT Body Mass Index 39.99 02/19/2016 2:07 PM EDT documented in this encounter Patient Instructions * Patient Instructions* Julio Welsh MD - 02/19/2016 2:30 PM EDT I think you're doing reasonably well. Please continue the same preventative and acute treatments for migraine. I think you're knee pain is probably related to arthritis. The cerebral palsy also makes it somewhat stiff. Please get an x-ray of the knee today. Please take the prescription for physical therapy to your therapist and see if they can work on your knee. You can apply hot and cold packs to your knee, and also use the naproxen as needed for knee pain I would like to see you back in 6 months. Julio Welsh MD [place] [address] Pager: [phone], #[phone] Email: [email or web address] documented in this encounter Progress Notes * Julio Welsh MD - 02/19/2016 2:30 PM EDT Neurology clinic note Chief Complaint: [...] treatment every few days to weeks.. She will be getting a hearing aid for her left ear. He continues to have some musculoskeletal symptoms particularly in her paretic side and at the moment is complaining of some knee pain. Since I last saw her she had some tendon surgery on the left hand. She is recovering well. Past medical history: Patient Active Problem List Diagnosis ??? S/P hysterectomy ??? Acute retinal necrosis [...] home with son. On disability Physical Exam: Vital signs:BP 122/65 (BP Location (NBP): Left arm, Patient Position: Sitting, BP Cuff Sizes: Adult(25-34 cm)) Pulse 98 Ht (!) 149.9 cm (4' 11) Wt 89.8 kg (198 lb) BMI 39.99 kg/m2 Head, eyes, ears, nose and throat [...] Vision was normal today for finger counting. Previously Visual acuity was 20/25 with the 14 inch scar and her glasses. Previously Tuning fork tests suggest a moderate degree of sensorineural hearing loss bilaterally, worse on the left. She has more nystagmus in both eyes looking to the left. She has a mild left hemiparesis, it is unchanged. Tone is slightly increased on the left. Strength is variable on the right with some give way weakness Reflexes are brisk except for the left ankle reflex, which cannot be elicited. She has minor sensory deficits on the left and right sides, that are somewhat inconsistent. She hassome tenderness around the left knee and less so around the left ankle. There was no clear sign of instability She walks with a mildly spastic and ataxic gait with circumduction of the left leg. Medications: Current Outpatient Prescriptions Medication Sig Dispense Refill ??? terconazole (TERAZOL 7) 0.4 % Cream Place vaginally nightly. 0 ??? baclofen (LIORESAL) 10 mg Tablet Take 1 tablet by mouth 4 times daily. 120 tablet 5 ??? meloxicam (MOBIC) 7.5 mg Tablet take 1 tablet by mouth daily 30 tablet 5 ??? amitriptyline (ELAVIL) 50 mg Tablet take 1 tablet by mouth every evening 30 tablet 5 ??? oxyCODONE (ROXICODONE) 5 mg Tablet Take 0.5-1 tablets by mouth every 4 hours as needed for Pain. Take the smallest dose possible to control your pain. As your pain improves, take smaller doses and increase the time between doses. You may break the tablet to achieve a smaller dose. 8 tablet 0 ??? topiramate (TOPAMAX) 25 mg Tablet take 2 tablets by mouth twice a day 120 tablet 5 ??? cyanocobalamin 1,000 mcg Tablet Take 1,000 [...] The patient continues to have multiple neurological issues 1. As noted earlier, she had a stroke at the time of with no evidence of recurrence. Her MRI scan is stable. 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 She has some arthritic pain in her left knee. I'm getting some x-rays today. I'm sending her to physical therapy. She can use hot and cold packs and NSAIDs. I also advised weight loss 2. She suffers from migraine. She was [...] are similar to what she has had earlier and which have always resolved in a few hours. The problem isthat whenever she goes to the ED someone thinks she needs a CAT scan, and I am seriously concerned now about the cumulative risk of radiation. 3. [...] is worse in the left ear. She has been evaluated in ENT and will get a hearing aid. Thank you for this consultation. I will see her back in 6 months or sooner as needed. Julio Welsh MD Department [place] [address] Pager: [phone], #[phone] Email: [email or web address] cc: Chelsy Abbasi APRN documented in this encounter Plan of Treatment Not on file documented as of this encounter Results * XR Knee 3 [...] so stated, without mention of status migrainosus Left knee pain, unspecified chronicity Left knee pain, unspecified chronicity documented in this encounter Care Teams Trading Specialist Relationship Specialty Start Date End Date Chelsy Abbasi APRN [address] [place] [address] PCP - General General Internal Medicine 08/11/1508/04 documented as of this encounter
--- OUTSIDE RECORDS SUMMARY | 2023-12-27 01:04 | XMS_ITS | Encounter Summary ---
Author Organization [facility] [place] [address] Care Team Providers Care Forestry Laborer Name Role Phone Laura Hidalgo APRN Primary Care Provider [phone] Reason for Visit * Reason Onset Date Comments Medication Refill 05/02/2017 Encounter Details Date Type Department Care Team (Late st Contact Info) Description 05/02/2017 [place] [address] Julio Welsh MD [facility] [place] [address] Social History Tobacco Use Types Packs/Day Years [...] on filedocumented in this encounter Care Teams Forestry Laborer Relationship Specialty Start Date End Date Laura Hidalgo APRN [address] [place] [address] PCP - General Internal Medicine 08/16/16 documented as of this encounter
--- OUTSIDE RECORDS SUMMARY | 2023-12-27 01:05 | XMS_ITS | Encounter Summary ---
Author Organization [facility] [place] [address] Care Team Providers Care Forest Fire Lookout Name Role Phone Salvatore Berman MD Primary Care Provider [phone] Reason for Visit * Reason Onset Date Comments Prior Authorization 04/10/2013 PA FOR TOPAM AX FAXED Encounter Details Date Type Department Care Team (Late st Contact Info) Description 04/10/2013 [place] [phone] Julio Welsh MD [facility] [place] [address] Prior Authorization (NAYE MAS TOPAMAX FAXED) Social History Tobacco Use Types Packs/Day Years [...] encounter Miscellaneous Notes * Telephone Encounter - Conchita Cavazos - 04/17/2013 2:30 PM EST INSURANCE ASKING FOR MORE INFO. SENT. * Telephone Encounter - Karlene Ocampo RN - 04/16/2013 10:44 AM EST New prescription prepared for md review and signature. * Telephone Encounter - Beatriz Montes - 04/16/2013 10:32 AM EST Patient advises she just go off the phone with the [facility] in [facility] and now they are requesting a new prescription for Topamax be sent to them - they stated after 5 refills they needa new prescription. Patient advises she has been out of medication for two weeks. * Telephone Encounter - Beatriz Montes - 04/16/2013 10:21 AM EST Patient advises she needs a prior authorization for Topamax - I advised the patient PA was sent to [email or web address] on 04/12. Patient states she will call her pharmacy to see if they are able to process the refill. * Telephone Encounter - Conchita Cavazos - 04/12/2013 9:55 AM EST PA FOR TOPAMAX FAXED TO [employer] * Telephone Encounter - Jennifer Prescott LPN - 04/10/2013 2:34 PM EST Rx was done 07/28/12 for 1 year supply. Spoke with pharmacist. Patient does have refills. He states the medication actually needs a PA. * Telephone Encounter - Natividad Sarmiento - 04/10/2013 2:22 PM EST Name of Med: Topamax Strength of Pills: 25 mg Dosing Directions: Take 2 tablets by mouth 2 times daily. 30 or 90 Day: 30 day supply Pharmacy: [place], [place] Last Appointment: 03/15/2013 Next Appointment: 06/19/2013 documented in this encounter Plan of Treatment Not on file documented as of this encounter Visit Diagnoses Not on filedocumented in this encounter Care Teams Forest Fire Lookout Relationship Specialty Start Date End Date Salvatore Berman MD PCP - General 04/28/10 08/10/15 documented as of this encounter
--- OUTSIDE RECORDS SUMMARY | 2023-12-27 01:05 | XMS_ITS | Encounter Summary ---
Author Organization [facility] [place] [address] Care Team Providers Care Floral Merchandiser Name Role Phone Salvatore Berman MD Primary Care Provider [phone] Reason for Visit * Reason Onset Date Comments Medication Refill 10/10/2014 Encounter Details Date Type Department Care Team (Late Contact Info) Description 10/10/2014 [place] [address] Julio Welsh MD [facility] [place] [address] Social History Tobacco Use Types Packs/Day Years [...] on filedocumented in this encounter Care Teams Floral Merchandiser Relationship Specialty Start Date End Date Salvatore Berman MD PCP - General 04/28/10 08/10/15 documented as of this encounter
--- OUTSIDE RECORDS SUMMARY | 2023-12-27 01:05 | XMS_ITS | Encounter Summary ---
Author Organization [facility] [place] [address] Care Team Providers Care Auto Design Detailer Name Role Phone Salvatore Berman MD Primary Care Provider [phone] Reason for Visit * Reason Onset Date Comments Medication Refill 06/11/2013 Encounter Details Date Type Department Care Team (Late Contact Info) Description 06/11/2013 Ref[place] [address] Julio Welsh MD [facility] [place] [address] Social History Tobacco Use Types Packs/Day Years [...] filedocumented in this encounter Care Teams Auto Design Detailer Relationship Specialty Start Date End Date Salvatore Berman MD PCP - General 04/28/10 08/10/15 documented as of this encounter
--- OUTSIDE RECORDS SUMMARY | 2023-12-27 01:05 | XMS_ITS | Encounter Summary ---
Author Organization [facility] [place] [address] Care Team Providers Care Bsa Officer Name Role Phone Salvatore Berman MD Primary Care Provider [phone] Encounter Details Date Type Department Care Team (Late st Contact Info) Description 04/16/2015 12:15 AM EST - 04/16/2015 11:59 PM EST Hospital Encounter [place] [phone] Dr Mariam Temporary Pain Discharge Disposition: Home Social History Tobacco Use [...] Take 60 mg by mouth daily. 12/05/2023 PROAIR HFA 90 mcg/actuation HFA Aerosol Inhaler INHALE 2 PUFFS INTO THE LUNGS DAILY NEEDED FOR WHEEZING, USE WITH SPACER 8.5 g 11 04/08/2015 12/02/2016 meloxicam (MOBIC) 7.5 mg Tablet Take 1 tablet by mouth daily. 30 tablet 02/18/2015 08/11/2015 baclofen (LIORESAL) 10 mg Tablet Take 1 tablet by mouth 4 times daily. 120 tablet 02/18/2015 08/19/2015 amitriptyline (ELAVIL) 50 mg Tablet TAKE 1 TABLET BY MOUTH NIGHTLY 30 tablet 12/09/2014 07/08/2015 topiramate (TOPAMAX) 25 mg Tablet Take 2 tablets by mouth 2 times daily. 120 tablet 10/10/2014 05/09/2015 naproxen sodium (ANAPROX) 550 mg tablet Take [...] Associated Diagnosis Comments FILM LIBRARY STORAGE ONLY DX ELBOW Routine 04/16/2015 12:15 AM EST Pain documented in this encounter Results * Film Library- Storage only DX Elbow (04/16/2015 12:15 AM EST) Narrative [facility] - 07/08/2015 4:12 PM EST See PACS for result report. [facility] FILM LIBRARY ORD ERABLES Performing Organization Address City/State/[place] Co de Phone Number [place], [place] documented in this encounter Visit Diagnoses Diagnosis Pain Generalized pain documented in this encounter Care Teams Bsa Officer Relationship Specialty Start Date End Date Salvatore Berman MD PCP - General 04/28/10 08/10/15 documented as of this encounter
--- OUTSIDE RECORDS SUMMARY | 2023-12-27 01:05 | XMS_ITS | Encounter Summary ---
Author Organization [facility] [place] [address] Care Team Providers Care Crime Victim Specialist Name Role Phone Salvatore Berman MD Primary Care Provider Reason for Visit * Reason Comments Medication Refill Encounter Details Date Type Department Care Team (Late st Contact Info) Description 04/08/2015 [place] [address] Julio Welsh MD [facility] [place] [address] Social History Tobacco Use Types Packs/Day Years [...] on filedocumented in this encounter Care Teams Crime Victim Specialist Relationship Specialty Start Date End Date Salvatore Berman MD PCP - General 11/23/10 3/6/16 documented as of this encounter
--- OUTSIDE RECORDS SUMMARY | 2023-12-27 01:05 | XMS_ITS | Encounter Summary ---
Author Organization [facility] [place] [address] Care Team Providers Care Ticket Dispatcher Name Role Phone Salvatore Berman MD Primary Care Provider [phone] Encounter Details Date Type Department Care Team (Late st Contact Info) Description 02/18/2015 12:45 PM EDT [place] [id number] Julio Welsh MD [facility] [place] [address] Intractable migraine with aura without status migrainosus Discharge Disposition: Home Social History Tobacco Use [...] Sign Reading Time Taken Comments Blood Pressure 115/67 02/18/2015 11:48 AM EDT Pulse 86 02/18/2015 11:48 AM EDT Temperature - - Respiratory Rate - - Oxygen Saturation - - Inhaled Oxygen Concentration - - Weight 87.1 kg (192 lb) 02/18/2015 11:48 AM EDT Height 152.4 cm (5') 02/18/2015 11:48 AM EDT Body Mass Index 37.5 02/18/2015 11:48 AM EDT documented in this encounter Patient Instructions * Patient Instructions* Julio Welsh MD - 02/18/2015 12:20 PM EDT Overall, I think you're doing about the same. Please stay on the same medications. Migraines appear to be under reasonable control. I do not see any worsening of your childhood stroke. Vision appears to be stable. 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 I'm prescribing a new painkiller meloxicam to be taken one pill daily for the ankle pain. I also suggest increasing the dose of baclofen from 3 pillsa day to 4 pills a day, taking the fourth one in the middle of the day at any time when you feel your toes curling over. I'm also giving you a prescription for physical therapy, and I suggest you use it to have your ankle brace rechecked, to see if they can get a better fit. Try to exercise and lose weight to the extent possible. I know it's difficult. Please call if you are not getting any help from the medication changes. I would in any case want to see you back in 6 months Julio Welsh MD Department of Neurology [address] [address], [place] [address] Pager: [phone], #[phone] Email: [email or web address] documented in this encounter Progress Notes * Julio Welsh MD - 02/18/2015 12:02 PM EDT Neurology clinic note Chief Complaint: [...] and hydroxyzine Interval history: She is doing quite well. Her musculoskeletal symptoms as discussed earlier including back hip and leg discomfort are stable.She is having more pain in the left ankle. She is getting some migrainous headaches and paresthesias similar to what she has had before. She feels that her headaches are less frequent and less severe. He is using naproxen only, about once a week, and not Vistaril or sumatriptan. She has persistent mild tinnitus in the left ear. Past medical history: Patient Active Problem List [...] migraines. Bowel and bladder function is stable. Physical Exam: BP 115/67 mmHg Pulse 86 Ht 152.4 cm (5') Wt 87.091 kg (192 lb) BMI 37.50 kg/m2 Head, eyes, ears, nose and throat were normal. There was no significant tenderness today. Heart and lungs were normal. 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 There is some rather nonspecific tenderness around the left lateral malleolus She is mentally at baseline. Speech is normal. There is no sign of infection in either eye. She has complete loss of vision on the left and external deviation of the left eye. There is a stable left-sided visual field constriction in the right eye. Visual acuity was 20/30 at her earlier visit in 2014 and I did not check it today. Tuning fork tests suggest a mild degree of sensorineural hearing loss on the left. She has more nystagmus [...] right sides, that are somewhat inconsistent. She walks with a mildly spastic and ataxic gait with circumduction of the left leg. She has a fitted AFO brace for the left ankle but feels it does not fit very well. She was using an [id number] flexible support for the ankle today Medications: Current Outpatient Prescriptions Medication Sig Dispense Refill ??? baclofen (LIORESAL) 10 mg Tablet Take 1 tablet by mouth 4 times daily. 120 tablet 11 ??? amitriptyline (ELAVIL) 50 mg Tablet TAKE 1 TABLET BY MOUTH NIGHTLY 30 tablet 5 ??? topiramate (TOPAMAX) 25 mg Tablet Take 2 tablets by mouth 2 times daily. 120 tablet 5 ??? albuterol (PROVENTIL HFA;VENTOLIN HFA) 90 mcg/actuation inhaler Inhale 2 puffs into the lungs daily as needed for Wheezing. Use with spacer 1 Inhaler 11 ??? naproxen sodium (ANAPROX) 550 mg [...] Take 500 mg by mouth daily. ??? meloxicam (MOBIC) 7.5 mg Tablet Take 1 tablet by mouth daily. 30 tablet 11 No current facility-administered medications [...] headaches worsen, we can re-prescribe hydroxyzine and sumatriptan I reinforced that she should not go [...] to remain on Valtrex. 4. She has fluctuating musculoskeletal symptoms that are doing reasonably well at the moment. 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 I'm putting her on a standing dose of meloxicam. I reinforced the need for exercise and weight loss. I'm also slightly increasing the dose of baclofen as that appears to be a component of muscle spasm as well if this does not help, we need to consider Botox injections. I also sent her back to physical therapy for readjustment of her AFO brace 5. He has a mild sensorineural hearing loss in the left ear. I think this should just be followed. If the problem worsens, referral to audiology and ENT may be indicated. I would also consider obtaining an MRI scan of the brain to make sure that she is not developing an acoustic neuroma. Thank you for this consultation. I will see her back in 6 months or sooner as needed. Julio Welsh MD [place] [address] Pager: [phone], #[phone] Email: [email or web address] cc: Chelsy Abbasi APRN documented in this encounter Plan of Treatment Not on file documented as of this encounter Visit Diagnoses Diagnosis Intractable migraine with aura without status migrainosus Migraine with aura, with intractable migraine, so stated, without mention of status migrainosus documented in this encounter Care Teams Ticket Dispatcher Relationship Specialty Start Date End Date Salvatore Berman MD PCP - General 04/28/10 08/10/15 documented as of this encounter
--- OUTSIDE RECORDS SUMMARY | 2023-12-27 01:05 | XMS_ITS | Encounter Summary ---
Author Organization [facility] [place] [address] Care Team Providers Care Process Planner Name Role Phone Salvatore Berman MD Primary Care Provider [phone] Reason for Visit * Reason Comments Medication Refill Encounter Details Date Type Department Care Team (Late st Contact Info) Description 07/08/2015 [place] [address] [facility] [place] [address] Social History Tobacco Use Types Packs/Day Years [...] on filedocumented in this encounter Care Teams Process Planner Relationship Specialty Start Date End Date Salvatore Berman MD PCP - General 11/23/10 3/6/16 documented as of this encounter
--- OUTSIDE RECORDS SUMMARY | 2023-12-27 01:05 | XMS_ITS | Encounter Summary ---
Author Organization [facility] [place] [address] Care Team Providers Care Unix Administrator Name Role Phone Chelsy Abbasi APRN Primary Care Provider [phone] Reason for Visit * Reason Onset Date Comments Results 11/05/2015 Encounter Details Date Type Department Care Team (Late st Contact Info) Description 11/05/2015 Telephone [place] [phone] Tab Young PA [facility] [place] [address] Results Social History Tobacco Use Types Packs/Day Years [...] encounter Miscellaneous Notes * Telephone Encounter - Tab Young PA - 11/05/2015 4:23 PM EDT Yuli Romero is 40 years of age and was seen for left asymmetrical hearing loss. MRI scan was obtained to rule out retrocochlear pathology analysis found to be normal. These results are passed on tothe patient. For the hearing loss she may want to investigate amplification. She may do this closerto home. Tab Young PA-C Department of Otolaryngology [facility] [place] [address] Office Phone - documented in this encounter Plan of Treatment Not on file documented as of this encounter Visit Diagnoses Not on filedocumented in this encounter Care Teams Unix Administrator Relationship Specialty Start Date End Date Chelsy Abbasi APRN [address] [place] [address] PCP - General General Internal Medicine 08/11/1508/04 documented as of this encounter
--- OUTSIDE RECORDS SUMMARY | 2023-12-27 01:05 | XMS_ITS | Encounter Summary ---
[place] [address] Care Team Providers Care String Cutter Name Role Phone Cehlsy Abbasi APRN Primary Care Provider [phone] Reason for Referral * Diagnostic Test (Routine) - Closed Specialty Diagnoses / Procedures Referred By Contac t Referred To Contact Radiology Diagnoses Asymmetrical sensorineural hearing loss Procedures MRI Brain With/WO Contrast (GENERIC) Tab Young PA [facility] [place] [address] [place] [address] Referral ID Status Reason Start Date Expiration Date V isits Requested Visits Authorized [id number] Closed Specialty Service Requested 10/09/2015 01/07/2016 1 1 Reason for Visit * Diagnostic Test (Routine) - Closed Specialty Diagnoses / Procedures Referred By Contac t Referred To Contact Radiology Diagnoses Asymmetrical sensorineural hearing loss Procedures MRI Brain With/WO Contrast (GENERIC) Tab Young PA [facility] [place] [address] [place] [address] Referral ID Status Reason Start Date Expiration Date V isits Requested Visits Authorized [id number] Closed Specialty Service Requested 10/09/2015 01/07/2016 1 1 Encounter Details Date Type Department Care Team (Latest Contact Info) Description 10/23/2015 6:48 AM EDT - 10/23/2015 11:59 PM EDT Hospital Encounter MRI at [facility] [place] [address] Adalberto Desir MD [facility] DR OTOLARYNGOLOGY [place] [address] Asymmetrical sensorineural hearing loss Discharge Disposition: Home Social History Tobacco Use [...] Take 60 mg by mouth daily. 12/05/2023 baclofen (LIORESAL) 10 mg Tablet Take 1 tablet by mouth 4 times daily. 120 tablet 11 08/19/2015 02/10/2016 cyanocobalamin 1,000 mcg Tablet Take 1,000 mcg by mouth daily. 11/07/2017 meloxicam (MOBIC) 7.5 mg Tablet Take 1 tablet by mouth daily. 30 tablet 5 08/11/2015 02/03/2016 amitriptyline (ELAVIL) 50 mg Tablet take 1 tablet by mouth every evening 30 tablet 5 07/08/2015 01/04/2016 topiramate (TOPAMAX) 25 mg Tablet take 2 tablets by mouth twice a day 120 tablet 5 05/09/2015 11/05/2015 PROAIR HFA 90 mcg/actuation HFA Aerosol Inhaler [...] Name Priority Date/Time Associated Diagnosis Comments MRI BRAIN WWO CONTRAST (GENERIC) Routine 10/23/2015 8:18 AM EDT Asymmetrical sensorineural hearing loss documented in this encounter Results * MRI Brain With/WO Contrast (GENERIC) (10/23/2015 8:18 AM EDT) Anatomical Region Laterality Modality Head Magnetic Resonan ce Impressions 10/23/2015 10:18 AM EDT No IAC mass or abnormal enhancement. I have personally reviewed the image(s) and the residents interpretation and agree with the findings, Shaquille Li at 10/23/2015 10:18 AM Narrative 10/23/2015 10:18 AM EDT EXAMINATION: MRI BRAIN WWO CONTRAST CLINICAL HISTORY: Left asymmetric hearing loss and tinnitus TECHNIQUE: MRI brain without and with intravenous contrast. IAC protocol. 9 cc of gadolinium was administered. COMPARISON: MRI orbits from 12/23/2011, MRI brain from 11/11/2008, 02/24/2007 FINDINGS: The course of the cranial nerve VII-VIII complexes are normal in appearance. The cochlea and semicircular canals are normal in appearance. No enhancing soft tissue mass within the IAC or cerebellopontine angles bilaterally or elsewhere within the brain parenchyma. The sulci and ventricles are otherwise similar to prior study with similar appearance of right parietal encephalomalacia and adjacent signal alteration. The asymmetric diminished size of the right cerebral hemisphere is unchanged. The dysplastic appearance of the cerebellar cortex shows no alteration. No evidence for recent infarction, mass effect, midline shift or extra-axial fluid collection. The regional bone marrow appears normal in signal intensity. The major intracranial flow-voids are normal in appearance. There is stable appearance of the globes compared to prior study. There is mild ethmoid air cell mucosal thickening. The mastoid air cells are unremarkable. Procedure Note Shaquille Li MD - 10/23/2015 EXAMINATION: MRI BRAIN WWO CONTRAST CLINICAL HISTORY: Left asymmetric hearing loss and tinnitus TECHNIQUE: MRI brain without and with intravenous contrast. IAC protocol.9 cc of gadolinium was administered. COMPARISON: MRI orbits from 12/23/2011, MRI brain from 11/11/2008,02/24/2007 FINDINGS: The course of the cranial nerve VII-VIII complexes are normal inappearance. The cochlea and semicircular canals are normal in appearance. No enhancingsoft tissue mass within the IAC or cerebellopontine angles bilaterally orelsewhere within the brain parenchyma. The sulci and ventricles are otherwise similar to prior study withsimilar appearance of right parietal encephalomalacia and adjacent signalalteration. The asymmetric diminished size of the right cerebral hemisphere isunchanged. The dysplastic appearance of the cerebellar cortex shows no alteration.No evidence for recent infarction, mass effect, midline shift or extra-axialfluid collection. The regional bone marrow appears normal in signal intensity. The major intracranial flow-voids are normal in appearance. There is stableappearance of the globes compared to prior study. There is mild ethmoid air cellmucosal thickening. The mastoid air cells are unremarkable. IMPRESSION No IAC mass or abnormal enhancement. I have personally reviewed the image(s) and the residents interpretationand agree with the findings, Shaquille Li at 10/23/2015 10:18 AM Authorizing Provider Result Tish Desir MD IMG MRI ORDERABLES documented in this encounter Visit Diagnoses Diagnosis Asymmetrical sensorineural hearing loss Sensorineural hearing loss, asymmetrical documented in this encounter Administered Medications Inactive Administered Medications - up to 3 most recent administrations Medication Order MAR Action Action Date Dose Rate Site gadobutrol (GADAVIST) 1 mMol/mL injection 8.85 mL 8.85 mL (0.1 mL/kg/dose ? 88.5 kg Order-specific weight), Intravenous, ONCE PRN, 1 dose, Starting on Clarissa 10/23/15 at 0736, Until Clarissa 10/23/15 at 0820, Per Protocol, Routine Given 10/23/2015 8:20 AM EDT 9 mLs documented in this encounter Care Teams String Cutter Relationship Specialty Start Date End Date Chelsy Abbasi, [employer] [address] [place] [address] PCP - General General Internal Medicine 08/11/1508/04 documented as of this encounter
--- OUTSIDE RECORDS SUMMARY | 2023-12-27 01:05 | XMS_ITS | Encounter Summary ---
Author Organization [facility] [place] [address] Care Team Providers Care Clinic Office Manager Name Role Phone Chelsy Abbasi APRN Primary Care Provider [phone] Reason for Visit * Reason Comments Medication Refill Encounter Details Date Type Department Care Team (Late Contact Info) Description 11/05/2015 [place] [address] Litzy Rodriguez MD [facility] [place] [address] Social History Tobacco Use Types Packs/Day Years [...] on filedocumented in this encounter Care Teams Clinic Office Manager Relationship Specialty Start Date End Date Chelsy Abbasi APRN [address] [place] [address] PCP - General General Internal Medicine 08/11/1508/04 documented as of this encounter
--- OUTSIDE RECORDS SUMMARY | 2023-12-27 01:05 | XMS_ITS | Encounter Summary ---
Author Organization [facility] [place] [address] Care Team Providers Care [employer] Fab[employer] Supervisor Name Role Phone Salvatore Berman MD Primary Care Provider [phone] Encounter Details Date Type Department Care Team (Late st Contact Info) Description 08/14/2014 3:15 PM EDT [place] [phone] Julio Welsh MD [facility] [place] [address] Intractable migraine with aura without status migrainosus [...] Sign Reading Time Taken Comments Blood Pressure 121/70 08/14/2014 2:41 PM EDT Pulse 105 08/14/2014 2:41 PM EDT Temperature - - Respiratory Rate - - Oxygen Saturation - - Inhaled Oxygen Concentration - - Weight - - Height 152.4 cm (5') 08/14/2014 2:41 PM EDT Body Mass Index - - documented in this encounter Patient Instructions * Patient Instructions* Julio Welsh MD - 08/14/2014 4:16 PM EDT I think you're doing reasonably well. Headaches appear to be under control. Vision is stable. Your neurological exam is stable. I suspect you have a mild degree of nerve-related hearing loss on the left side. I would like to reexamine it closely at your next visit, and depending on the findings we can get some pictures of thebrain and ear to make sure there is nothing going really wrong. Please stay on the same medications. I would like to see you back in 6 months. Julio Welsh MD Department [place] [address] Pager: [phone], #[phone] Email: [email or web address] documented in this encounter Progress Notes * Julio Welsh MD - 08/13/2014 11:20 PM EDT Chief Complaint: Headaches, stroke, and hemiparesis. History: [...] back hip and leg discomfort are stable.She took a fall today and is having some exacerbation of back and hip pain but it does not seem to bad. She is getting some migrainous headaches and paresthesias similar to what she has had before.she feels that her headaches are less frequent and less severe last 6 months. She has a new symptom which is mild to moderate tinnitus in the left ear. Past medical history: Patient Active Problem List Diagnoses Code ??? 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 CIS - migraine T999.0 ??? 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 Transient visual disturbance, right 368.9 ??? 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 Headache 784.0 ??? Intractable headache 784.0 Review of systems: She is eating all right, Sleep is fair, occasionally disturbed by migraines. Bowel and bladder function is stable. Physical Exam: There were no vitals taken for this visit. Head, eyes, ears, nose and throat were normal. There was no significant tenderness today. Tympanic membranes were normal. Heart and lungs were normal. 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 She is mentally at baseline. Speech is normal. There is no sign of infection in either eye. She has complete loss of vision on the left and external deviation of the left eye. There is a stable left-sided visual field constriction in the right eye. Visual acuity was 20/30.. Tuning fork tests suggest a mild degree of sensorineural hearing loss on the left.. She has more nystagmus in both eyes [...] circumduction of the left leg. She has bilateral AFO braces, but was not wearing them today Medications: Current Outpatient Prescriptions Medication Sig Dispense Refill ??? amitriptyline (ELAVIL) 50 mg Tablet Take 1 tablet by mouth nightly. 90 tablet 1 ??? albuterol (PROVENTIL HFA;VENTOLIN HFA) 90 mcg/actuation inhaler Inhale 2 puffs into the lungs daily as needed for Wheezing. Use with spacer 1 Inhaler 11 ??? topiramate (TOPAMAX) 25 mg tablet Take 2 tablets by mouth 2 times daily. 120 tablet 11 ??? baclofen (LIORESAL) 10 mg tablet take 1 tablet by mouth three times a day 90 tablet 11 ??? SUMAtriptan (IMITREX) 50 mg tablet Take 1 tablet by mouth as needed for Migraine. Take at the onset of headache, may repeat 1 dose in 1-2 hour, no more than 2 doses in 24 H. 10 tablet 0 ??? naproxen sodium (ANAPROX) 550 mg tablet Take 1 tablet by mouth 2 times daily as needed. 60 tablet 12 ??? hydrOXYzine (VISTARIL) 50 mg capsule Take 1 capsule by mouth 2 times daily as needed. 60 capsule 0 ??? CALCIUM CARBONATE (TUMS ORAL) Take 1 [...] we added Topamax to her regimen, and have her using naproxen and hydroxyzine for symptomatic relief. I am inclined to make no change. I reinforced the need to use naproxen and hydroxyzine when she gets milder headaches. I reinforced that she should not go [...] has complete loss of vision on the left, but it seems substantially normal on the right. There is a subtle visual field deficit. Some of her problem was I believe a part of her migraine. Any big change in her vision is reason to go the emergencyroom, owing to the history of herpetic infection. 4. She has fluctuating musculoskeletal symptoms that are doing reasonably well at the moment. 5. He has a mild sensorineural hearing [...] needed. Julio Welsh MD Department [place] [address] Pager: [phone], #[phone] Email: [email or web address] cc: Chelsy Abbasi APRN documented in this encounter Plan of Treatment Not on file documented as of this encounter Visit Diagnoses Diagnosis Intractable migraine with aura without status migrainosus Migraine with aura, with intractable migraine, so stated, without mention of status migrainosus documented in this encounter Care Teams [employer] Supervisor Relationship Specialty Start Date End Date Salvatore Berman MD PCP - General 04/28/10 08/10/15 documented as of this encounter
--- OUTSIDE RECORDS SUMMARY | 2023-12-27 01:05 | XMS_ITS | Encounter Summary ---
Author Organization [facility] [place] [address] Care Team Providers Care Target Aircraft Technician Name Role Phone Salvatore Berman MD Primary Care Provider [phone] Reason for Visit * Reason Onset Date Comments Other 07/09/2013 Encounter Details Date Type Department Care Team (Late st Contact Info) Description 07/09/2013 [place] [id number] Julio Welsh MD [facility] [place] [address] Other Social History Tobacco Use Types Packs/Day [...] encounter Miscellaneous Notes * Telephone Encounter - Karlene Ocampo RN - 07/10/2013 2:50 PM EST Letter mailed 07/10/13 at 2:50 pm to patient's home address at her request. * Telephone Encounter - Alla Rios - 07/09/2013 2:05 PM EST Yuli called stating that on Tuesday07/06/2013 at PT she experienced numbness in her right side. She went to the ER and they did a cat scan, ekg, bloodwork, and IV. Her gym will not let her come backuntil she has documentation from Dr. Welsh stating that she is okay to begin working out again. Will schedule follow up with Dr. Welsh. No action needed by nursing staff at this time. documented in this encounter Plan of Treatment Not on file documented as of this encounter Visit Diagnoses Not on filedocumented in this encounter Care Teams Target Aircraft Technician Relationship Specialty Start Date End Date Salvatore Berman MD PCP - General 04/28/10 08/10/15 documented as of this encounter
--- OUTSIDE RECORDS SUMMARY | 2023-12-27 01:05 | XMS_ITS | Encounter Summary ---
Author Organization [facility] [place] [address] Care Team Providers Care Medical Practice Administrator Name Role Phone Salvatore Berman MD Primary Care Provider [phone] Reason for Visit * Reason Comments Medication Refill Encounter Details Date Type Department Care Team (Late st Contact Info) Description 05/09/2015 [place] [address] Julio Welsh MD [facility] [place] [address] Social History Tobacco Use Types Packs/Day Years [...] filedocumented in this encounter Care Teams Medical Practice Administrator Relationship Specialty Start Date End Date Salvatore Berman MD PCP - General 11/23/10 3/6/16 documented as of this encounter
--- OUTSIDE RECORDS SUMMARY | 2023-12-27 01:05 | XMS_ITS | Encounter Summary ---
Author Organization [facility] Address [facility] [place] [address] Care Team Providers Care Chief Architect Name Role Phone Chelsy Abbasi APRN Primary Care Provider [phone] Encounter Details Date Type Department Care Team (Latest Contact Info) Description 08/11/2015 12:40 PM EST - 08/11/2015 11:59 PM EST Hospital Encounter XRay at [address] [place] [address] Sherif Ortiz MD [facility] [place] [address] Pain in finger of left hand Discharge Disposition: Home Social History Tobacco Use [...] Take 60 mg by mouth daily. 12/05/2023 cyanocobalamin 1,000 mcg Tablet Take 1,000 mcg [...] WITH SPACER 8.5 g 11 04/08/2015 12/02/2016 baclofen (LIORESAL) 10 mg Tablet Take 1 tablet by mouth 4 times daily. 120 tablet 11 02/18/2015 08/19/2015 naproxen sodium (ANAPROX) 550 mg tablet Take [...] Name Priority Date/Time Associated Diagnosis Comments XR LIMITED ULTRASOUND OF ANY FINGER LEFT Routine 08/11/2015 1:38 PM EST Pain in finger of left hand documented in this encounter Results * XR Limited Ultrasound of Any Finger Left (08/11/2015 1:38 PM EST) Anatomical Region Laterality Modality Left Radio Fluoroscop y Impressions 08/11/2015 2:15 PM EST IMPRESSION: 1. ?? The extensor tendon of the fifth metacarpal is not interrupted but not optimally seen. 2. ??Nonspecific hypoechoic material at the radial aspect of the fifth MCP joint may represent a small focus of scar tissue from previous injury, a thick sagittal band or a thick junctura tendinum. Dr. Ortiz ??was present at the exam. Narrative 08/11/2015 2:15 PM EST EXAMINATION: XR LIMITED ULTRASOUND OF ANY FINGER LEFT CLINICAL HISTORY: Left dorsal small finger pain/snapping with flexion and extension at MCP joint, requesting dynamic ultrasound to evaluate for accessory junctura tendinae versus extensor tendon subluxation TECHNIQUE: The soft tissues of the left fourth and fifth metacarpal were examined using a high frequency transducer. COMPARISON: Outside MRI of the fingers. FINDINGS: The fifth extensor tendon is not interrupted and is not subluxed. No peritendinous fluid. At the fourth and fifth intermetacarpal area, an ill defined hypoechoic focus, 8 x 3 mm draped over the radial aspect of the third metacarpal head, medial to the extensor tendons. This area is painful. The sagittal band is not optimally seen. No fluid collection or effusion. Flexion-extension of the fifth MCP joint show no dislocation or subluxation. Procedure Note Hina Dudley MD - 08/11/2015 EXAMINATION: XR LIMITED ULTRASOUND OF ANY FINGER LEFT CLINICAL HISTORY: Left dorsal small finger pain/snapping with flexionand extension at MCP joint, requesting dynamic ultrasound to evaluate foraccessory junctura tendinae versus extensor tendon subluxation TECHNIQUE: The soft tissues of the left fourth and fifth metacarpal were examined using a high frequency transducer. COMPARISON: Outside MRI of the fingers. FINDINGS: The fifth extensor tendon is not interrupted and is not subluxed. No peritendinous fluid. At the fourth and fifth intermetacarpal area, anill defined hypoechoic focus, 8 x 3 mm draped over the radial aspect of thethird metacarpal head, medial to the extensor tendons. This area is painful.The sagittal band is not optimally seen. No fluid collection or effusion. Flexion-extension of the fifth MCP joint show no dislocation orsubluxation. IMPRESSION IMPRESSION: 1. The extensor tendon of the fifth metacarpal is not interrupted butnot optimally seen. 2. Nonspecific hypoechoic material at the radial aspect of the fifth MCPjoint may represent a small focus of scar tissue from previous injury, a thick sagittal band or a thick junctura tendinum. Dr. Ortiz was present at the exam. Sherif Ortiz MD IMG DX ORDERABLES documented in this encounter Visit Diagnoses Diagnosis Pain in finger of left hand Pain in limb documented in this encounter Care Teams Chief Architect Relationship Specialty Start Date End Date Chelsy Abbasi DECISION SUPPORT MANAGER [address] [place] [address] PCP - General General Internal Medicine 08/11/1508/04 documented as of this encounter
--- OUTSIDE RECORDS SUMMARY | 2023-12-27 01:05 | XMS_ITS | Encounter Summary ---
[place] [address] Care Team Providers Care Jigger Machine Operator Name Role Phone Chelsy Abbasi APRN Primary Care Provider [phone] Reason for Referral * Diagnostic Test (Routine) - Closed Specialty Diagnoses / Procedures Referred By Contac t Referred To Contact Radiology Diagnoses Asymmetrical sensorineural hearing loss Procedures MRI Brain With/WO Contrast (GENERIC) Tab Young PA [facility] [place] [address] [place] [address] Referral ID Status Reason Start Date Expiration Date V isits Requested Visits Authorized [id number] Closed Specialty Service Requested 10/09/2015 01/07/2016 1 1 Reason for Visit * Reason Comments Establish Care ASHL, migraines left side of face ? effecting hearing. * Consultation (Routine) - Closed Specialty Diagnoses / Procedures Referred By Contvito t Referred To Contact Otolaryngology Diagnoses Intractable migraine with aura without status migrainosus Asymmetrical sensorineural hearing loss Julio Welsh MD [facility] [place] [address] [facility] Otolaryngology [address] [place] [id number] Referral ID Status Reason Start Date Expiration Date V isits Requested Visits Authorized [id number] Closed Consult, Test & Treat 08/19/2015 08/18/2016 1 1 Encounter Details Date Type Department Care Team (Latest Contact Info) Description 10/08/2015 3:30 PM EDT Office [place] [address] Tab Young PA [facility] [place] [address] Asymmetrical sensorineural hearing loss Social History Tobacco Use Types Packs/Day Years [...] Sign Reading Time Taken Comments Blood Pressure 119/62 10/08/2015 2:35 PM EDT Pulse 114 10/08/2015 2:35 PM EDT Temperature - - Respiratory Rate - - Oxygen Saturation - - Inhaled Oxygen Concentration - - Weight 88.5 kg (195 lb) 10/08/2015 2:35 PM EDT Reported by patient. Height 149.9 cm (4' 11) 10/08/2015 2:3 5 PM EDT Body Mass Index 39.39 10/08/2015 2:35 PM EDT documented in this encounter Progress Notes * Tab Young PA - 10/08/2015 3:14 PM EDT Georgie Romero is 40 years of age and is being referred by Dr. Welsh in neurology for evaluation of left ear symptoms of fullness, hearing loss, and tinnitus. The patient reports that for approximately 1 year she is noted a diminishment in hearing of the left ear. She also has noted tinnitus and a full sensation. She has been followed for migraine headaches primarily affecting the left side of her head. This will involve the ear with ear pain. During a migraine she also reports that the tinnitus seems worse on the left side and the hearing also seems worse. 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 Her audiologic evaluation today demonstrates normal hearing in the right ear. The left ear shows a mild sensorineural hearing loss rising to within normal limits between 4 and 8000 Hz. Tympanometry is within normal limits in both ears. Speech word recognition scores are 100% on the right 80% on theleft. Social history: She is single. Tobacco: She smokes socially while she was drinking for 13 years. Alcohol: She does report past abuse. She reports she would drink from the morning until she would pass out in the afternoon, and this was for a 6 year.. She quit drinking 13 years ago. On physical exam she appears healthy in no acute distress. Palpation of the neck reveals no palpable adenopathy or mass. Oral cavity: Tongue, floor of mouth, buccal mucosa, buccal gutters, gums, palate, and posterior pharyngeal wall appear normal. Symmetrical rise a palate on phonation. Tongue protrudes in the midline without fasciculation. Otologic exam with the operating microscope reveals patent external auditory canals bilaterally. Tympanic membranes are both translucent showing no evidence middle ear pathology. Light-touch test does reveal some diminished sensitivity on the left side of the meatus. Romberg is negative at 30 seconds. Fukuda was performed but she had does have a shorter leg and there was some rotation to the right. Impression: Left asymmetrical hearing loss diminished speech recognition scores on the left side. Main feel retrocochlear pathology such as acoustic neuroma does need to be ruled out. I have ordered an MRI scan with and without gadolinium of the brain. This could also be related to her history of migraine headaches. I will be calling the patient with the result. If the scan is normal then she may want to consider hearing aid at some point. I will give reassurance that no serious pathology was identified and thatshneena should try to control her migraines as best as possible. If abnormal I will make the appropriate referrals. Tab Young PA-C Department of Otolaryngology [facility] [place] [address] Office Phone - documented in this encounter Plan of Treatment Not on file documented as of this encounter Results * MRI Brain With/WO [...] findings, Shaquille Li at 10/23/2015 10:18 AM Adalberto Desir MD IMG MRI ORDERABLES documented in this encounter Visit Diagnoses Diagnosis Asymmetrical sensorineural hearing loss Sensorineural hearing loss, asymmetrical Asymmetrical sensorineural hearing loss Sensorineural hearing loss, asymmetrical documented in this encounter Care Teams Jigger Machine Operator Relationship Specialty Start Date End Date Chelsy Abbasi APRN [address] [place] [address] PCP - General General Internal Medicine 08/11/1508/04 documented as of this encounter
--- OUTSIDE RECORDS SUMMARY | 2023-12-27 01:05 | XMS_ITS | Encounter Summary ---
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 Phone Number [facility] * (ABNORMAL) APTT (07/26/2012 5:51 PM EST) PTT 24(L) 25 - 35 sec [facility] MILLENNIUM Comment: Recommended therapeutic PTT range for full dose unfractionated heparin is 80-114 seconds. Blood specimen (specimen) 07/26/2012 5:51 PM EST 07/26/2012 5:55 PM EST Narrative Resulting Agency Comment Spec In Lab Becki Cisneros MD HEMATOLOGY ORDERABLE S [facility] * Prothrombin Time (07/26/2012 5:51 PM EST) PT 13.3 11.9 - 14.7 sec [facility] MILLENNIUM Comment: [facility] Transfusion Committee Guidelines: INR less than 2.0, PTT less than OR equal to 43.5 seconds, or Fibrinogen greater than or equal to 100 mg/dl indicate adequate procoagulant activity for hemostasis in patients without underlying bleeding disorders. INR 1.0 0.9 - 1.1 ALAN MARMOLEJOIUM Blood specimen (specimen) 07/26/2012 5:51 PM EST 07/26/2012 5:55 PM EST Narrative Resulting Agency Comment Spec In Lab Becki Cisneros MD HEMATOLOGY ORDERABLE S ALAN IBARRA * Beta HCG, quantitative (07/26/2012 5:51 PM EST) Beta hCG Quant <1 mlU/ML CHAYNE R MILLENNIUM Comment: REFERENCE RANGES NON- FEMALE: ??Less than 5 mIU/mL POSTMENOPAUSAL FEMALE: ??Less than 8 mIU/mL ? -- FEMALES -- Weeks of ? HCG range ??(mIU/mL) ? 3 weeks ? 5.8 - 71.2 ? 4 weeks ? 9.5 - 750 ? 5 weeks ? 217 - 7,138 ? 6 weeks ? 158 - 31,795 ? 7 weeks ? 3,697 - 163,563 ? 8 weeks ? 32,065 - 149,571 ? 9 weeks ? 63,803 - 151,410 ?10 weeks ? 46,509 - 186,977 ?12 weeks ? 27,832 - 210,612 ?14 weeks ? 13,950 - 62,530 ?15 weeks ? 12,039 - 70,971 ?16 weeks ? 9,040 - 56,451 ?17 weeks ? 8,175 - 18,868 ?18 weeks ? 8,099 - 96,176 Blood specimen (specimen) 07/26/2012 5:51 PM EST 07/26/2012 5:55 PM EST Narrative Resulting Agency Comment Spec In Lab Becki Cisneros MD CHEMISTRY ORDERABLES ALAN IBARRA * Phosphorus (07/26/2012 5:51 PM EST) Phosphorus 2.9 2.5 - 4.5 mg/dL ALAN IBARRA Blood specimen (specimen) 07/26/2012 5:51 PM EST 07/26/2012 5:55 PM EST Narrative Resulting Agency Comment Spec In Lab Becki Cisneros MD CHEMISTRY ORDERABLES CERZE MARMOLEJOIUM * Magnesium (07/26/2012 5:51 PM EST) Magnesium 0.80 0.69 - 1.07 mmol/L CERNER MILLENNIUM Blood specimen (specimen) 07/26/2012 5:51 PM EST 07/26/2012 5:55 PM EST Narrative Resulting Agency Comment Spec In Lab Becki Cisneros MD CHEMISTRY ORDERABLES Performing Organization Address [facility] Co de Phone Number CEREZ MARMOLEJOIUM * Basic Metabolic Panel (non-fasting) (07/26/2012 5:51 PM EST) Glucose Lvl 102 60 - 199 mg/dL CERNER MILLENNIUM Comment:Diabetes: >=200 mg/d L plus symptoms BUN 17 8 - 18 mg/dL CERNER MILLENNIUM Creatinine 0.81 0.70 - 1.20 mg/dL CERNER MILLENNIUM Comment: Please note that the pediatric reference intervals supplied above were not validated at [facility]. Results from pediatric patients should be interpreted [...] diabetic kidney disease. References: http://nkdep.nih.gov/resources/NKDEP_Suggestn4Labs_0606_508.pdf http://www.kidney.org/professionals/kls/pdf/faq_gfr.pdf Olvin Tamayo, Aashish NA, Quyen AK, Mateus TS, Meg AD, Jeanne GREG. Relative performance of the MDRD and CKD-EPI equations for estimating glomerular filtration rate among patients with varied clinical presentations. Clin J Am Soc Nephrol;6:1963-72. Blood specimen (specimen) 07/26/2012 5:51 PM EST 07/26/2012 5:55 PM EST Narrative Resulting Agency Comment Spec In Lab Becki Cisneros MD CHEMISTRY ORDERABLES [facility] * CBC (with Diff) (07/26/2012 5:51 PM EST) WBC 8.3 4.0 - 10.0 x10(3)/mcL CEREZ RIVERAENNIUM RBC 4.72 3.93 - 5.22 x10(6)/mcL [facility] MILLENNIUM Hemoglobin 14.7 11.2 - 15.7 gm/dL [facility] NICOLEENNIUM Hematocrit 41.6 34.0 - 45.0 % [facility] NICOLEENNIUM MCV 88.1 79.0 - 94.0 fL [facility] NICOLEENNIUM MCH 31.1 26.6 - 32.2 pg [facility] MCHC 35.3 32.0 - 36.5 gm/dL [facility] Platelets 213 145 - 370 x10(3)/mcL [facility] RDWSD 40.4 35.0 - 46.0 fL [facility] RDWCV 12.5 10.9 - 14.4 % [facility] MPV 10.8 9.0 - 12.0 fL [facility] NICOLEENNIUM Blood specimen (specimen) 07/26/2012 5:51 PM EST 07/26/2012 5:55 PM EST Narrative Resulting Agency Comment Spec In Lab Becki Cisneros MD HEMATOLOGY ORDERABLE S [facility] documented in this encounter Visit Diagnoses Diagnosis Migraine Migraine, unspecified, without mention of intractable migraine without mention of status migrainosus Headache(784.0) Headache Intractable headache Headache documented in this encounter Administered Medications Inactive Administered Medications - up to 3 most recent administrations Medication Order MAR Action Action Date Dose Rate Site amitriptyline (ELAVIL) tablet 50 mg 50 mg, Oral, NIGHTLY, First dose on Tue07/26/12 at 2100, Until Discontinued, Routine Given 07/27/2012 8:47 PM EST 50 mg Given 07/26/2012 9:00 PM EST 50 mg aspirin EC tablet 81 mg 81 mg, Oral, DAILY, First dose on Tue07/26/12 at 1745, Until Discontinued, Routine Given 07/28/2012 8:20 AM EST 81 mg Given 07/27/2012 8:18 AM EST 81 mg Given 07/26/2012 5:45 PM EST 81 mg baclofen (LIORESAL) tablet 10 mg 10 mg, Oral, 3 TIMES DAILY, First dose on Tue07/26/12 at 1700, Until Discontinued, Routine Given 07/28/2012 8:20 AM EST 10 mg Given 07/27/2012 8:47 PM EST 10 mg Given 07/27/2012 3:00 PM EST 10 mg calcium carbonate (TUMS) chewable tablet 500 mg 500 mg, Oral, DAILY, First dose on Tue07/26/12 at 1700, Until Discontinued, Routine Given 07/27/2012 8:18 AM EST 500 mg Given 07/26/2012 5:00 PM EST 500 mg dexamethasone (DECADRON) injection 4 mg 4 mg, Intravenous, EVERY 8 HOURS SCHEDULED, First dose on Tue07/27/12 at 0945, Until Discontinued Given 07/28/2012 6:17 AM EST 4 mg Given 07/27/2012 9:26 PM EST 4 mg Given 07/27/2012 2:50 PM EST 4 mg enoxaparin (LOVENOX) injection 40 mg 40 mg, Subcutaneous, DAILY, First dose on Tue07/26/12 at 1700, Until Discontinued, Routine Given 07/28/2012 8:20 AM EST 40 mg Abdom inal Tissue Given 07/27/2012 8:18 AM EST 40 mg Given 07/26/2012 5:00 PM EST 40 mg ketorolac (TORADOL) injection 30 mg 30 mg, Intravenous, EVERY 6 HOURS PRN, Starting on Tue07/26/12 at 1640, Until Tue07/28/12 at 1353, Pain, Routine Given 07/28/2012 10:01 AM EST 30 mg Given 07/27/2012 7:43 PM EST 30 mg magnesium sulfate 1g in dextrose 5% 100mL 1 g, Intravenous, ONCE, 1 dose, On Tue07/26/12 at 1700, Administer over 60 Minutes Given 07/26/2012 6:16 PM EST 1 g 100 mL/hr magnesium sulfate 1g in dextrose 5% 100mL 1 g, Intravenous, ONCE, 1 dose, On Tue07/27/12 at 0930, Administer over 10 Minutes Given 07/27/2012 10:30 AM EST 1 g 600 mL/hr metoclopramide (REGLAN) tablet 10 mg 10 mg, Oral, 4 TIMES DAILY BEFORE MEALS & NIGHTLY, First dose on Tue07/26/12 at 2100, Until Discontinued, Routine Given 07/27/2012 7:32 AM EST 10 mg Given 07/26/2012 9:00 PM EST 10 mg ondansetron (ZOFRAN) injection 4 mg 4 mg, Intravenous, EVERY 8 HOURS PRN, Starting on Tue07/26/12 at 1640, Until Tue07/28/12 at 1353, Nausea, Routine Given 07/27/2012 8:28 AM EST 4 mg raloxifene (EVISTA) tablet 60 mg 60 mg, Oral, DAILY, First dose on Tue07/26/12 at 1700, Until Discontinued, Routine Given 07/28/2012 8:20 AM EST 60 mg Given 07/27/2012 8:18 AM EST 60 mg sodium chloride 0.9 % flush 5 mL 5 mL, Intravenous, EVERY 12 HOURS, First dose on Tue07/26/12 at 1700, Until Discontinued Given 07/27/2012 5:00 PM EST 5 mLs Given 07/27/2012 5:00 AM EST 5 mLs Given 07/26/2012 5:00 PM EST 5 mLs sodium chloride 0.9% infusion 1,000 mL, at 100 mL/hr, Intravenous, CONTINUOUS, Starting on Tue07/26/12 at 1700, Until Tue07/27/12 at 0459 [facility] 07/26/2012 5:59 PM EST 1,000 mLs 100 m L/hr sodium chloride 0.9% infusion 100 mL/hr, Intravenous, CONTINUOUS, Starting on Tue07/27/12 at 0930, Until Tue07/28/12 at 1353 [facility] 07/28/2012 5:00 AM EST 100 mL/hr 100 mL/hr New Bag 07/27/2012 7:38 PM EST 100 mL/hr 100 mL/hr New Bag 07/27/2012 10:25 AM EST 100 mL/hr 100 mL/hr SUMAtriptan (IMITREX) injection 6 mg 6 mg, Subcutaneous, EVERY 1 HOUR PRN, 2 doses, Starting on Tue07/26/12 at 1640, Until Tue07/27/12 at 0516, Migraine, Maximum 2 doses in 24 hours, Routine Given 07/27/2012 5:16 AM EST 6 mg Given 07/26/2012 8:34 PM EST 6 mg topiramate (TOPAMAX) tablet 50 mg 50 mg, Oral, 2 TIMES DAILY, First dose on Tue07/26/12 at 2100, Until Discontinued, Routine Given 07/28/2012 8:20 AM EST 50 mg Given 07/27/2012 8:48 PM EST 50 mg Given 07/27/2012 8:18 AM EST 50 mg valACYclovir (VALTREX) tablet 500 mg 500 mg, Oral, DAILY, First dose on Tue07/26/12 at 1700, Until Discontinued, Routine, Indication for (Active or Suspected): for Skin/Skin Structure Given 07/28/2012 8:20 AM EST 500 mg Given 07/27/2012 8:18 AM EST 500 mg valproate (DEPACON) 500 mg in sodium chloride 0.9% 55 mL 500 mg, Intravenous, ONCE, 1 dose, On Tue07/27/12 at 0715, Administer over 5 Minutes, Please administer over 5 minutes Given 07/27/2012 7:49 AM EST 500 mg 660 mL/hr valproate (DEPACON) 500 mg in sodium chloride 0.9% 55 mL 500 mg, Intravenous, ONCE, 1 dose, On Tue07/28/12 at 0745, Administer over 5 Minutes, Please administer over 5 minutes Given 07/28/2012 7:39 AM EST 500 mg 660 mL/hr documented in this encounter Active and Recently Administered Medications Times are shown in EST. Scheduled Medication Order 07/26/2012 07/27/2012 07/28/2012 amitriptyline (ELAVIL) tablet 50 mg (CANCELED) 50 mg, Oral, NIGHTLY, First dose on Tue07/26/12 at 2100, Until Discontinued, Routine 2100 (Given - Provider: Hannah Clay RN) 2046 (Given - Provider: Nathalie Lynn RN) aspirin EC tablet 81 mg (CANCELED) 81 mg, Oral, DAILY, First dose on Tue07/26/12 at 1745, Until Discontinued, Routine 1745 (Given - Provider: Jennifer Haji, GUI) 0818 (Given - Provider: Yuni Sullivan, GUI) 0820 (Given - Provider: Amira Sloan RN) baclofen (LIORESAL) tablet 10 mg (CANCELED) 10 mg, Oral, 3 TIMES DAILY, First dose on Tue07/26/12 at 1700, Until Discontinued, Routine 1700 (Not Given - Provider: Hannah Clay RN - Reason: Medication not available)2100 (Given - Provider: Hannah Clay RN) 0818 (Given - Provider: Yuni Sullivan RN)1500 (Given - Provider: Yuni Sullivan RN)2047 (Given - Provider: Nathalie Lynn RN) 0820 (Given - Provider: Amira Sloan RN) calcium carbonate (TUMS) chewable tablet 500 mg (CANCELED) 500 mg, Oral, DAILY, First dose on Tue07/26/12 at 1700, Until Discontinued, Routine 1700 (Given - Provider: Jennifer Haji RN) 0818 (Given - Provider: Yuni Sullivan RN) 0820 (Not Given - Provider: Amira Sloan RN - Reason: Patient/family refused) dexamethasone (DECADRON) injection 4 mg (CANCELED) 4 mg, Intravenous, EVERY 8 HOURS SCHEDULED, First dose on Clarissa 07/27/12 at 0945, Until Discontinued 1025 (Given - Provider: Yuni Sullivan RN)1450 (Given - Provider: Yuni Sullivan RN)2126 (Given - Provider: Nathalie Lynn RN) 0617 (Given - Provider: Nathalie Lynn RN) enoxaparin (LOVENOX) injection 40 mg (CANCELED) 40 mg, Subcutaneous, DAILY, First dose on Tue07/26/12 at 1700, Until Discontinued, Routine 1700 (Given - Provider: Jennifer Haji RN) 0818 (Given - Provider: Yuni Sullivan RN) 0820 (Given - Provider: Amira Sloan RN) magnesium sulfate 1g in dextrose 5% 100mL (COMPLETED) 1 g, Intravenous, ONCE, 1 dose, On Tue07/26/12 at 1700, Administer over 60 Minutes 1816 (Given - Provider: Jennifer Haji RN) magnesium sulfate 1g in dextrose 5% 100mL (COMPLETED) 1 g, Intravenous, ONCE, 1 dose, On Clarissa 07/27/12 at 0930, Administer over 10 Minutes 1030 (Given - Provider: Yuni Sullivan RN) metoclopramide (REGLAN) tablet 10 mg (CANCELED) 10 mg, Oral, 4 TIMES DAILY BEFORE MEALS & NIGHTLY, First dose on Tue07/26/12 at 2100, Until Discontinued, Routine 2100 (Given - Provider: Hannah Clay RN) 0732 (Given - Provider: Yuni Sullivan, GUI) raloxifene (EVISTA) tablet 60 mg (CANCELED) 60 mg, Oral, DAILY, First dose on Tue07/26/12 at 1700, Until Discontinued, Routine 1700 (Not Given - Provider: Jennifer Haji RN - Reason: See comment - Comment: taken by pt this AM) 0818 (Given - Provider: Yuni Sullivan RN) 0820 (Given - Provider: Amira Sloan RN) sodium chloride 0.9 % flush 5 mL (CANCELED) 5 mL, Intravenous, EVERY 12 HOURS, First dose on Tue07/26/12 at 1700, Until Discontinued 1700 (Given - Provider: Jennifer Haji RN) 0500 (Given - Provider: Hannah Clay RN)1700 (Given - Provider: Yuni Sullivan RN) 0500 (Not Given - Provider: Nathalie Lynn RN - Reason: See comment - Comment: running iv) topiramate (TOPAMAX) tablet 50 mg (CANCELED) 50 mg, Oral, 2 TIMES DAILY, First dose on Tue07/26/12 at 2100, Until Discontinued, Routine 2100 (Given - Provider: Hannah Clay RN) 0818 (Given - Provider: Yuni Sullivan RN)2048 (Given - Provider: Nathalie Lynn, GUI) 0820 (Given - Provider: Amira Sloan, GUI) valACYclovir (VALTREX) tablet 500 mg (CANCELED) 500 mg, Oral, DAILY, First dose on Tue07/26/12 at 1700, Until Discontinued, Routine, Indication for (Active or Suspected): for Skin/Skin Structure 1700 (Not Given - Provider: Jennifer Haji RN - Reason: See comment - Comment: taken by pt this AM) 0818 (Given - Provider: Yuni Sullivan RN) 0820 (Given - Provider: Amira Sloan RN) valproate (DEPACON) 500 mg in sodium chloride 0.9% 55 mL (COMPLETED) 500 mg, Intravenous, ONCE, 1 dose, On Clarissa 07/27/12 at 0715, Administer over 5 Minutes, Please administer over 5 minutes 0749 (Given - Provider: Yuni Sullivan, GUI) valproate (DEPACON) 500 mg in sodium chloride 0.9% 55 mL (COMPLETED) 500 mg, Intravenous, ONCE, 1 dose, On Tue07/28/12 at 0745, Administer over 5 Minutes, Please administer over 5 minutes 0739 (Given - Provider: Amira Sloan, RN) Continuous Medication Order 07/26/2012 07/27/2012 07/28/2012 sodium chloride 0.9% infusion () 1,000 mL, at 100 mL/hr, Intravenous, CONTINUOUS, Starting on Tue07/26/12 at 1700, Until Tue07/27/12 at 0459 1759 (New Bag - Provider: Jennifer Haji RN) sodium chloride 0.9% infusion (CANCELED) 100 mL/hr, Intravenous, CONTINUOUS, Starting on Tue07/27/12 at 0930, Until Tue07/28/12 at 1353 1025 (New Bag - Provider: Yuni Sullivan RN)1938 (New Bag - Provider: Nathalie Lynn, GUI) 0500 (New Bag - Provider: Nathalie Lynn, GUI) PRN Medication Order 07/26/2012 07/27/2012 07/28/2012 ketorolac (TORADOL) injection 30 mg (CANCELED) 30 mg, Intravenous, EVERY 6 HOURS PRN, Starting on Tue07/26/12 at 1640, Until Tue07/28/12 at 1353, Pain, Routine 1943 (Given - Provider: Nathalie Lynn, GUI) 1001 (Given - Provider: Amira Sloan, GUI) ondansetron (ZOFRAN) injection 4 mg (CANCELED) 4 mg, Intravenous, EVERY 8 HOURS PRN, Starting on Tue07/26/12 at 1640, Until Tue07/28/12 at 1353, Nausea, Routine 0828 (Given - Provider: Yuni Sullivan, GUI) SUMAtriptan (IMITREX) injection 6 mg (COMPLETED) 6 mg, Subcutaneous, EVERY 1 HOUR PRN, 2 doses, Starting on Tue07/26/12 at 1640, Until Tue07/27/12 at 0516, Migraine, Maximum 2 doses in 24 hours, Routine 2033 (Given - Provider: Hannah Clay, GUI) 0516 (Given - Provider: Hannah Clay, GUI) documented in this encounter Care Teams Weed Burner Relationship Specialty Start Date End Date Salvatore Berman MD PCP - General 04/28/10 08/10/15 documented as of this encounter
--- OUTSIDE RECORDS SUMMARY | 2023-12-27 01:05 | XMS_ITS | Encounter Summary ---
Author Organization [facility] Address [facility] [place] [address] Care Team Providers Care Real Estate Management Specialist Name Role Phone Salvatore Berman MD Primary Care Provider [phone] Encounter Details Date Type Department Care Team (Late st Contact Info) Description 03/15/2013 11:17 AM EDT - 03/15/2013 11:59 PM EDT Hospital Encounter XRay at [address] [place] [address] Hip pain Social History Tobacco Use Types Packs/Day Years [...] 60 mg by mouth daily. 12/05/2023 amitriptyline (ELAVIL) 50 mg tablet take 1 tablet by mouth NIGHTLY 90 tablet 0 02/21/2013 06/11/2013 baclofen (LIORESAL) 10 mg tablet Take 1 tablet by mouth 3 times daily. 90 tablet 11 09/12/2012 11/01/2013 topiramate (TOPAMAX) 25 mg tablet Take 2 tablets by mouth 2 times daily. 60 tablet 11 07/28/2012 04/16/2013 SUMAtriptan (IMITREX) 50 mg tablet Take 1 [...] as needed. 60 capsule 0 07/10/2012 02/18/2015 albuterol (PROVENTIL HFA;VENTOLIN HFA) 90 mcg/actuation inhaler [...] Name Priority Date/Time Associated Diagnosis Comments XR PELVIS AND HIP BILAT (GENERIC) Routine 03/15/2013 11:41 AM EDT Pain in joint, pelvic region and thigh documented in this encounter Results * XR pelvis 1 view & hips 1 view each (03/15/2013 11:41 AM EDT) Anatomical Region Laterality Modality Pelvis, Hip Bilateral Radiographic Lili ging 03/15/2013 11:4 1 AM EDT Narrative 03/15/2013 11:55 AM EDT Examination 1 VIEW PELVIS AND 1 VIEW EACH HIP Clinical History Congenital left hemiparesis, new right hip pain Comparison None. Technique AP view of the pelvis, including both hips, as well as a lateral view of each hip with Mag marker. Findings The bones appear normally mineralized and aligned. ??There is mild superior joint space narrowing on the left, but no acetabular sclerosis or productive changes are seen. ??No cystic or erosive changes are noted. ??The femoral head contour is smooth bilaterally. ??Question if the femoral head-neck junction region configuration, particularly on the right, may predispose the patient to impingement. Mild lower left sacroiliac joint degenerative change. ?? Impression ? 1. Minimal superior joint space narrowing on the left. ? 2. Slightly unusual appearance of the femoral head-neck junction region configuration, more so on the right, which might predispose the patient to impingement. If there are clinical signs of impingement, MRI is suggested for further evaluation. ? 3. Mild lower left sacroiliac joint degenerative change. Procedure Note Earline Galindo MD - 03/15/2013 Examination 1 VIEW PELVIS AND 1 VIEW EACH HIP Clinical History Congenital left hemiparesis, new right hip pain Comparison None. Technique AP view of the pelvis, including both hips, as well as a lateral view ofeach hip with Mag marker. Findings The bones appear normally mineralized and aligned. There is mild superior joint space narrowing on the left, but no acetabular sclerosis orproductive changes are seen. No cystic or erosive changes are noted. The femoralhead contour is smooth bilaterally. Question if the femoral head-neck junction region configuration, particularly on the right, may predispose thepatient to impingement. Mild lower left sacroiliac joint degenerative change. Impression 1. Minimal superior joint space narrowing on the left. 2. Slightly unusual appearance of the femoral head-neck junctionregion configuration, more so on the right, which might predispose the patient to impingement. If there are clinical signs of impingement, MRI is suggestedfor further evaluation. 3. Mild lower left sacroiliac joint degenerative change. Julio Welsh MD IMG DX ORDERABLES documented in this encounter Visit Diagnoses Diagnosis Hip pain Pain in joint, pelvic region and thigh documented in this encounter Care Teams Real Estate Management Specialist Relationship Specialty Start Date End Date Salvatore Berman MD PCP - General 04/28/10 08/10/15 documented as of this encounter
--- OUTSIDE RECORDS SUMMARY | 2023-12-27 01:05 | XMS_ITS | Encounter Summary ---
Author Organization [facility] [place] [address] Care Team Providers Care Last Marker Name Role Phone Chelsy Abbasi APRN Primary Care Provider [phone] Reason for Visit * Reason Onset Date Comments Other 10/08/2015 Patient notifyin g provider of scheduled testing Encounter Details Date Type Department Care Team (Late st Contact Info) Description 10/08/2015 Telephone [place] [phone] Julio Welsh MD [facility] [place] [address] Other (Patient notifying provider of scheduled testing) Social History Tobacco Use Types Packs/Day Years [...] encounter Miscellaneous Notes * Telephone Encounter - Sharri Rea - 10/08/2015 3:30 PM EDT Patient has appointment with Dr. Young in audiology and he recommended MRI, which patient is scheduled for 10/23/15. Patient just wanted Dr. Welsh to know. documented in this encounter Plan of Treatment Not on file documented as of this encounter Visit Diagnoses Not on filedocumented in this encounter Care Teams Last Marker Relationship Specialty Start Date End Date Chelsy Abbasi APRN [address] [place] [address] PCP - General General Internal Medicine 08/11/1508/04 documented as of this encounter
--- OUTSIDE RECORDS SUMMARY | 2023-12-27 01:05 | XMS_ITS | Encounter Summary ---
Author Organization [facility] [place] [address] Care Team Providers Care Textile Technical Officer Name Role Phone Salvatore Berman MD Primary Care Provider [phone] Reason for Visit * Reason Onset Date Comments Medication Refill 06/11/2013 Encounter Details Date Type Department Care Team (Late st Contact Info) Description 06/11/2013 Telephone [place] [phone] Julio Welsh MD [facility] [place] [address] Medication Refill Social History Tobacco Use Types [...] encounter Miscellaneous Notes * Telephone Encounter - Alla Rios Deepak - 06/11/2013 3:06 PM EST Patient states that she only has one tablet left. Name of Med: amytriptyline Strength of Pills:50 mg tablet Dosing Directions: take 1 tablet by mouth at bedtime 30 or 90 Day: 90 Pharmacy: [facility] Last Appointment:03/15/2013 Next Appointment:06/19/2013 documented in this encounter Plan of Treatment Not on file documented as of this encounter Visit Diagnoses Not on filedocumented in this encounter Care Teams Textile Technical Officer Relationship Specialty Start Date End Date Salvatore Berman MD PCP - General 04/28/10 08/10/15 documented as of this encounter
--- OUTSIDE RECORDS SUMMARY | 2023-12-27 01:05 | XMS_ITS | Encounter Summary ---
Author Organization [facility] [place] [address] Care Team Providers Care Front Maker Name Role Phone Chelsy Abbasi APRN Primary Care Provider [phone] Reason for Visit * Reason Onset Date Comments Prior Authorization 09/04/2015 PA NOT NEEDE D FOR BACLOFEN #120 Encounter Details Date Type Department Care Team (Late st Contact Info) Description 09/04/2015 [place] [phone] Julio Welsh MD [facility] [place] [address] Prior Authorization (PA NOT NEEDED FOR BACLOFEN #120 ) Social History Tobacco Use Types Packs/Day Years [...] * Telephone Encounter - Conchita Cavazos - 12/31/2015 11:58 AM EDT PA NOT NEEDED FOR BACLOFEN #120 PAID CLAIM 09/04. * Telephone Encounter - Conchita Cavazos - 09/05/2015 8:47 AM EDT LETTER FROM INSURANCE REC'D STATING THAT PA REQUEST HAS BEEN RECEIVED. TRACKING ID# [id number] * Telephone Encounter - Conchita Cavazos - 09/04/2015 11:14 AM EDT PA FOR BACLOFEN #120 FAXED TO [employer] documented in this encounter Plan of Treatment Not on file documented as of this encounter Visit Diagnoses Not on filedocumented in this encounter Care Teams Front Maker Relationship Specialty Start Date End Date Chelsy Abbasi APRN [address] [place] [address] PCP - General General Internal Medicine 08/11/1508/04 documented as of this encounter
--- OUTSIDE RECORDS SUMMARY | 2023-12-27 01:05 | XMS_ITS | Encounter Summary ---
Author Organization [facility]ly [facility] [place] [address] Care Team Providers Care Rollout Manager Name Role Phone Salvatore Berman MD Primary Care Provider [phone] Reason for Visit * Reason Onset Date Comments Medication Refill 04/16/2013 Encounter Details Date Type Department Care Team (Late Contact Info) Description 04/16/2013 [place] [address] Julio Welsh MD [facility] [place] [address] Social History Tobacco Use Types Packs/Day Years [...] on filedocumented in this encounter Care Teams Rollout Manager Relationship Specialty Start Date End Date Salvatore Berman MD PCP - General 04/28/10 08/10/15 documented as of this encounter
--- OUTSIDE RECORDS SUMMARY | 2023-12-27 01:05 | XMS_ITS | Encounter Summary ---
[place] [address] Care Team Providers Care Scrum Project Manager Name Role Phone Chelsy Abbasi APRN Primary Care Provider [phone] Reason for Referral * Consultation (Routine) - Closed Specialty Diagnoses / Procedures Referred By Jay ireland Referred To Contact Otolaryngology Diagnoses Intractable migraine with aura without status migrainosus Asymmetrical sensorineural hearing loss Julio Welsh MD [facility] [place] [address] [facility] Otolaryngology [address] [place] [id number] Referral ID Status Reason Start Date Expiration Date V isits Requested Visits Authorized [id number] Closed Consult, Test & Treat 08/19/2015 08/18/2016 1 1 Encounter Details Date Type Department Care Team (Latest Contact Info) Description 08/19/2015 2:30 PM EDT Office [place] [address] Julio Welsh MD [facility] [place] [address] Intractable migraine with aura without status migrainosus; Asymmetrical sensorineural hearing loss Social History Tobacco [...] Sign Reading Time Taken Comments Blood Pressure 116/72 08/19/2015 1:39 PM EDT Pulse 93 08/19/2015 1:39 PM EDT Temperature - - Respiratory Rate - - Oxygen Saturation - - Inhaled Oxygen Concentration - - Weight 86.6 kg (191 lb) 08/19/2015 1:39 PM EDT Height 152.4 cm (5') 08/19/2015 1:39 PM EDT Body Mass Index 37.3 08/19/2015 1:39 PM EDT documented in this encounter Patient Instructions * Patient Instructions* Julio Welsh MD - 08/19/2015 3:21 PM EDT I think you're doing about the same overall. At present I do not think we can improve on the management of your headaches. I will take steps immediately to get her baclofen prescription restored. I'm concerned about what appears to be worsening hearing loss. There is no obvious explanation. I will request consultation with the ear nose throat specialists and get you a hearing test at the sametime. Depending on the findings we can decide what to do next. Please call me after you have had the hearing test done. I would like to see you back in 6 months or sooner if necessary Julio Welsh MD Department of Neurology [address] [address], [place] [address] Pager: [phone], #[phone] Email: [email or web address] documented in this encounter Progress Notes * Julio Welsh MD - 08/19/2015 2:55 PM EDT Neurology clinic note Chief Complaint: [...] She is doing about the same overall Her musculoskeletal symptoms as discussed earlier including back hip she continues to have a variety of musculoskeletal complaints. She is having difficulty getting her baclofen prescription filled because of prior authorization issues She is getting some migrainous headaches and paresthesias similar to what she has had before. Prophylaxis with Elavil and Topamax and symptomatic treatment with naproxen has worked reasonably well. The exact frequency is unclear. She feels she has worsening hearing loss in the left ear. Past medical history: [...] with son. On disability Physical Exam: BP 116/72 mmHg Pulse 93 Ht 152.4 cm (5') Wt 86.637 kg (191 lb) BMI 37.30 kg/m2 Head, eyes, ears, nose and throat [...] in the right eye. Visual acuity was 20/25 with the 14 [...] 4 times daily. 120 tablet 11 ??? cyanocobalamin 1,000 mcg Tablet Take 1,000 mcg by mouth daily. ??? amitriptyline (ELAVIL) 50 mg Tablet take 1 tablet by mouth every evening 30 tablet 5 ??? topiramate (TOPAMAX) 25 mg Tablet take 2 tablets by mouth twice a day 120 tablet 5 ??? PROAIR HFA 90 mcg/actuation HFA Aerosol [...] tablet by mouth daily. 30 tablet 5 No current facility-administered medications for this visit. Impression: The patient continues to have multiple neurological issues 1. As noted earlier, she had a stroke at the time of with no evidence of recurrence. Her MRI scan is stable. 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 We are trying to get her prescription for baclofen restored. She has fluctuating musculoskeletal symptoms that are doing reasonably well at the moment. She is not using her AFO brace at the moment 2. She suffers from migraine. She was [...] it is worse in the left ear. In view of her worsening symptoms I'm requesting consultation with ENT and audiology. Depending on the findings, wemay need to repeat an MRI scan of the brain to rule out a structural lesion, but I would not do that just yet Thank you for this consultation. I will see her back in 6 months or sooner as needed. I have asked her to call after she has had heraudiology testing Julio Welsh MD [place] [address] Pager: [phone], #[phone] Email: [email or web address] cc: Chelsy Abbasi APRN documented in this encounter Plan of Treatment Scheduled Referrals Name Type Priority Associated Diagnoses Orde r Schedule Referral to ENT Outpatient Referral Routine Intractable migraine with aura without status migrainosus Asymmetrical sensorineural hearing loss Ordered: 08/19/2015 documented as of this encounter Visit Diagnoses Diagnosis Intractable migraine with aura without status migrainosus Migraine with aura, with intractable migraine, so stated, without mention of status migrainosus Asymmetrical sensorineural hearing loss Sensorineural hearing loss, asymmetrical documented in this encounter Care Teams Scrum Project Manager Relationship Specialty Start Date End Date Chelsy Abbasi APRN [address] [place] [address] PCP - General General Internal Medicine 08/11/1508/04 documented as of this encounter
--- OUTSIDE RECORDS SUMMARY | 2023-12-27 01:05 | XMS_ITS | Encounter Summary ---
Author Organization [facility] [place] [address] Care Team Providers Care Psychiatric Nursing Aide Name Role Phone Salvatore Berman MD Primary Care Provider [phone] Reason for Visit * Reason Comments Medication Refill Encounter Details Date Type Department Care Team (Late st Contact Info) Description 11/01/2013 [place] [address] Julio Welsh MD [facility] [place] [address] Social History Tobacco Use Types Packs/Day Years [...] on filedocumented in this encounter Care Teams Psychiatric Nursing Aide Relationship Specialty Start Date End Date Salvatore Berman MD PCP - General 11/23/10 3/6/16 documented as of this encounter
--- OUTSIDE RECORDS SUMMARY | 2023-12-27 01:05 | XMS_ITS | Encounter Summary ---
Author Organization [facility] [place] [address] Care Team Providers Care Vp Of Technology Name Role Phone Salvatore Berman MD Primary Care Provider [phone] Reason for Visit * Reason Comments Follow-up Encounter Details Date Type Department Care Team ([facility] Contact Info) Description 03/15/2013 9:45 AM EDT [place] [id number] Julio Welsh MD [facility] [place] [address] Migraine (Primary Dx); Hip pain; Lumbar radiculopathy Discharge Disposition: Home Social History Tobacco Use [...] Sign Reading Time Taken Comments Blood Pressure 100/61 03/15/2013 9:08 AM EDT Pulse 97 03/15/2013 9:08 AM EDT Temperature - - Respiratory Rate - - Oxygen Saturation - - Inhaled Oxygen Concentration - - Weight 83.5 kg (184 lb) 03/15/2013 9:08 AM EDT Height 152.4 cm (5') 03/15/2013 9:08 AM EDT Body Mass Index 35.94 03/15/2013 9:08 AM EDT documented in this encounter Patient Instructions * Patient Instructions* Julio Welsh MD - 03/15/2013 10:55 AM EDT It is not altogether clear what is wrong. We need to look at your hip and or lumbar spine I will arrange for x-rays of trhe hip, and an MRI scan of the spine. In the meantime please stay on naproxen. Please talk to me after you have had the MRI scan done. Julio Welsh MD [place] [address] Pager: [phone], #[phone] Email: [email or web address] documented in this encounter Progress Notes * Julio Welsh MD - 03/15/2013 10:23 AM EDT Chief Complaint: Headaches, stroke, and hemiparesis. History: The patient is seen in followup today. 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 She also suffers from migraine which produces intermittent visual disturbances. MRI scans have shown a stable right parietal lesion. She feels no worsening of her congenital weakness. She has had no additional visual disturbances. She has fluctuating migrainous headaches. The pain is severe posteriorly with some radiation to thevertex, worse on the right. She is often nauseated. On her present regimen she is doing well. She is rarely needing Imitrex. Interval history: She is complaining more of symptoms on the right side which is normally her good side. She describes hip pain, and also radiating lumbar radicular symptoms with pain and paresthesias in the right leg. She thinks she has lost some strength. She has not had bowel or bladder dysfunction. Past medical history: Patient Active Problem List [...] bladder function is stable. Physical Exam: BP 100/61 Pulse 97 Ht 152.4 cm (5') Wt 83.462 kg (184 lb) BMI 35.94 kg/m2 Head, eyes, ears, nose and throat were normal. There was mild occipital tenderness on the right andin the midline. Heart and lungs were normal. Extremities were unremarkable She is mentally at baseline. Speech is normal. There is no sign of infection in either eye. She has complete loss of vision on the left and external deviation of the left eye There is a stable left-sided visual field constriction in the right eye. Cranial nerves are otherwise unremarkable. She has more nystagmus in both eyes looking to the left. She has a mild left hemiparesis, it is unchanged. Tone is slightly increased on the left. Strength is variable on the right with some give way weakness in multiple muscle groups upper and lower extremity. It seems to have a psychosomatic component Reflexes are brisk except for the left ankle reflex, which cannot be elicited. She has minor sensory deficits on the left and right sides, that are somewhat inconsistent. Straight leg raising test and hip rotation are positive on both sides She walks with a mildly spastic and ataxic gait. She was not using her brace today. Medications: Current Outpatient Prescriptions Medication Sig Dispense Refill ??? topiramate (TOPAMAX) [...] tablet Take 500 mg by mouth daily. Impression: The patient continues to have multiple [...] I am inclined to make no change. 3. Her vision problems appear to have stabilized. She has complete loss of vision on the left, but it seems normal on the right. Some of her problem was I believe a part of her migraine 4. She is having symptoms on the right side, which is normally her stronger side, that could be related to hip disease but also to lumbar radiculopathy. Exam is difficult because of what I believe nicki psychosomatic elaboration. However we cannot in a patient like her run the risk of missing structural disease. I'm requesting x-rays of the hip, an MRI scan of the lumbar spine. I note she is already getting physical therapy. She can continue with Naprosyn for symptomatic relief until we have some more information. Thank you for this consultation. I will see her back in 3 months or sooner as needed. Julio Welsh MD [place] [address] Pager: [phone], #[phone] Email: [email or web address] cc: Dr. Berman documented in this encounter Plan of Treatment Not on file documented as of this encounter Results * MRI lumbar spine without contrast (2013 5:45 PM EDT) Anatomical Region Laterality Modality L-spine Magnetic Resonan ce 2013 5:45 PM EDT Narrative 2013 7:31 PM EDT Examination MR Lumbar Spine WO Clinical History Congenital left hemiparesis/new right lumbar radicular symptoms Technique MRI of the lumbar spine without contrast. ??Routine protocol. Comparison NONE Findings Alignment is anatomic. ??The normal-appearing conus terminates at the L1 level. ?? The disc spaces and vertebral body heights are maintained. ??No aggressive marrow lesions. ??The visualized retroperitoneal structures appear normal. No significant canal or neural foraminal narrowing identified. Impression No significant abnormalities detected. Procedure Note Salvatore Raymond MD - 2013 Examination MR Lumbar Spine WO Clinical History Congenital left hemiparesis/new right lumbar radicular symptoms Technique MRI of the lumbar spine without contrast. Routine protocol. Comparison NONE Findings Alignment is anatomic. The normal-appearing conus terminates at the [id number]. The disc spaces and vertebral body heights are maintained. No aggressive marrow lesions. The visualized retroperitoneal structures appear normal. No significant canal or neural foraminal narrowing identified. Impression No significant abnormalities detected. Julio Welsh MD IMG MRI ORDERABLES documented in this encounter Visit Diagnoses Diagnosis Migraine- Primary Migraine, unspecified, without mention of intractable migraine without mention of status migrainosus Hip pain Pain in joint, pelvic region and thigh Lumbar radiculopathy Thoracic or lumbosacral neuritis or radiculitis, unspecified Lumbar radiculopathy Thoracic or lumbosacral neuritis or radiculitis, unspecified documented in this encounter Care Teams Vp Of Technology Relationship Specialty Start Date End Date Salvatore Berman MD PCP - General 04/28/10 08/10/15 documented as of this encounter
--- OUTSIDE RECORDS SUMMARY | 2023-12-27 01:05 | XMS_ITS | Encounter Summary ---
Author Organization [facility] [place] [address] Care Team Providers Care Freezer Laboratory Technician Name Role Phone Salvatore Berman MD Primary Care Provider [phone] Reason for Visit * Reason Onset Date Comments Medication Refill 07/11/2014 Encounter Details Date Type Department Care Team (Late st Contact Info) Description 07/11/2014 [place] [address] Julio Welsh MD [facility] [place] [address] Social History Tobacco Use Types Packs/Day Years [...] on filedocumented in this encounter Care Teams Freezer Laboratory Technician Relationship Specialty Start Date End Date Salvatore Berman MD PCP - General 04/28/10 08/10/15 documented as of this encounter
--- OUTSIDE RECORDS SUMMARY | 2023-12-27 01:05 | XMS_ITS | Encounter Summary ---
Author Organization [facility] [place] [address] Care Team Providers Care Engine Cowling Installer Name Role Phone Salvatore Berman MD Primary Care Provider [phone] Reason for Visit * Reason Onset Date Comments Medication Refill 12/03/2013 Encounter Details Date Type Department Care Team (Late st Contact Info) Description 12/03/2013 [place] [address] Julio Welsh MD [facility] [place] [address] Social History Tobacco Use Types Packs/Day Years [...] encounter Miscellaneous Notes * Telephone Encounter - Marysol Carvajal - 12/03/2013 10:55 AM EDT Name of Med: Amatriptyline Strength of Pills: 50 mg Dosing Directions: 1 tablet at night 30 or 90 Day: 30 Pharmacy: [facility] Last Appointment:11/20/13 Next Appointment:05/14/14 documented in this encounter Plan of Treatment Not on file documented as of this encounter Visit Diagnoses Not on filedocumented in this encounter Care Teams Engine Cowling Installer Relationship Specialty Start Date End Date Salvatore Berman MD PCP - General 04/28/10 08/10/15 documented as of this encounter
--- OUTSIDE RECORDS SUMMARY | 2023-12-27 01:05 | XMS_ITS | Encounter Summary ---
Author Organization [facility] [place] [address] Care Team Providers Care Ward Secretary Name Role Phone Chelsy Abbasi APRN Primary Care Provider [phone] Encounter Details Date Type Department Care Team (Late st Contact Info) Description 10/13/2015 External Results [place] [address] Amelia Wooten AUD [facility] [place] [address] Social History Tobacco Use Types Packs/Day Years [...] Procedure Name Priority Date/Time Associated Diagnosis Comments AUDIOLOGY SCAN Routine 10/08/2015 documented in this encounter Results * Scan Doc: Audiology (10/08/2015) Amelia C Rieke AUD MEDIA MGR SCAN EXT ORDR/RSLT documented in this encounter Visit Diagnoses Not on filedocumented in this encounter Care Teams Ward Secretary Relationship Specialty Start Date End Date Chelsy Abbasi APRN [address] [place] [address] PCP - General General Internal Medicine 08/11/1508/04 documented as of this encounter
--- OUTSIDE RECORDS SUMMARY | 2023-12-27 01:05 | XMS_ITS | Encounter Summary ---
Author Organization [facility] [place] [address] Care Team Providers Care Client Success Specialist Name Role Phone Chelsy Abbasi APRN Primary Care Provider [phone] Reason for Visit * Reason Comments Left Hand Pain sp left small trigge r finger release osh [place] dos 05/10/15 DOI 04/2015 * Consultation (Routine) - Closed Specialty Diagnoses / Procedures Referred By Jay ireland Referred To Contact Orthopaedics Diagnoses Trigger finger, left little finger trigger little finger of left hand Salvatore Berman MD [address] [place] [address] Emery Ortiz MD [facility] [place] [address] Referral ID Status Reason Start Date Expiration Date V isits Requested Visits Authorized [id number] Closed Consult, Test & Treat Connection Center 07/07/2015 07/06/2016 1 1 Encounter Details Date Type Department Care Team ([facility] st Contact Info) Description 08/11/2015 8:55 AM EST Office [place] [address] Emery Ortiz MD [facility] [place] [address] Pain in finger of left hand Social History Tobacco Use [...] Sign Reading Time Taken Comments Blood Pressure 101/75 08/11/2015 8:34 AM EST Pulse 82 08/11/2015 8:34 AM EST Temperature - - Respiratory Rate - - Oxygen Saturation - - Inhaled Oxygen Concentration - - Weight 86.6 kg (191 lb) 08/11/2015 8:34 AM EST s tated Height 152.4 cm (5') 08/11/2015 8:34 AM EST stat ed Body Mass Index 37.3 08/11/2015 8:34 AM EST documented in this encounter Progress Notes * Emery Ortiz MD - 08/11/2015 2:40 PM EST Yuli Romero had a dynamic ultrasound to evaluate the extensor mechanism at the MCP joint of her left small finger. I was present for this. The area of tendon prominence and snapping appears to be an enlarged junctura tendinae likely enlarged due to trauma she sustained. This does appear to be what is snapping over the metacarpal head as she flexes and extends her MCP joint. I reviewed the circumstances with her. It is possible that the swelling may diminish with time, and this may self resolve. To help quiet this down, I did offer her corticosteroid injection. I did also talk to her about surgical options if pain persists in the form of transferring this junctura tendinae by releasing it proximally and sewing it to the radial side of the extensor digiti minimi. I will refer her back to Dr. Gilliam since she lives in that area, and if he prefers that I continue to treat her, I would be happy to see her back. Today, I offered her corticosteroid injection. I did tell her that this has potential risks including infection, tendon rupture, steroid flare, skin depigmentation, and no relief of symptoms. Under sterile conditions, I injected 6 mg of Celestone and 1 mL of 1% lidocaine. She had relief of her pain but persistent snapping. This may or may not resolve with time. I will see her back as needed in the future on a p.r.n. basis. * Nathalie Tavera PA - 08/11/2015 9:15 AM EST PATIENT NAME: Yuli Romero AGE: 40 y.o. MR#: [id number] DATE OF VISIT: 08/11/2015 DATE OF INJURY/ONSET: April 2015 STAFF: Dr. Ortiz CHIEF COMPLAINT: Left small finger pain/snapping HISTORY OF PRESENT ILLNESS: Ms. Romero is a right hand dominant 40 y.o. female who comes into clinic today for evaluation of the left small finger. She was referred to [facility] by [place] Gilliam.She is here for a second opinion. She states that she injured her left small finger at the end of April after dropping a heavy box onto her hand. She has a history of cerebral palsy and had a stroke as a child. She has had weakness and clumsiness with her left arm and also is blind in her left eye. She initially presented with triggering over the A1 dana. She underwent surgical A1 dana release in May 2015. While her palm her symptoms seem to improve after surgery, she developed moreapparent snapping over the dorsal aspect of the hand. She continues to have pain over the dorsal aspect of the finger that radiates towards her shoulder. She also reports a tingling sensation into her hand. She has had an MRI and presents today for further evaluation. She states that she completed a course of splinting for approximately 1 month. She states that she was compliant with this and only removed the splint for showering. She has not had any other left hand surgeries other than her trigger finger release. Medications and Allergies were reviewed in eD-H PAST MEDICAL HX: Past Medical History Diagnosis Date ??? Nonepileptic episode seen by Dr. Kwon in ??? Migraine worsening noted in ??? Alcohol abuse extensive prior use ??? 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 H/O: depression ??? H/O: substance abuse ??? Herpes infection of left eye, now with retinopathy ??? Genital herpes ??? Osteoporosis ??? Endometriosis PAST SURGICAL HX: Past Surgical History Procedure Laterality Date ??? Achilles tendon surgery 06/09/2010 lengthening of L achilles @ [facility] ??? Hysterectomy 2002 ??? Eye surgery 1996 L eye for herpes retininopathy ??? [place] tooth extraction 1995 ??? Dilation and curettage of uterus 2002 SOCIAL HX: Social History Occupational History ??? Disabled Social History Main Topics ??? Smoking status: Never Smoker ??? Smokeless tobacco: Never Used ??? Alcohol Use: No ??? Drug Use: No ??? Sexual Activity: Not on file Comment: deferred ROS: Constitutional: neg HEENT: neg Cardiac: neg Pulmonary: neg GI/: neg Endocrine: neg Skin: neg Musculoskeletal: see HPI PHYSICAL EXAM: Ms. Romero is a 40 y.o. female who is alert and oriented. She appears in no acute discomfort and is resting comfortably in the exam room. Inspection: Well-healed incision from previous trigger finger release. No erythema, ecchymosis, or swelling throughout the hand. Palpation: There is some scar tissue over her incision over her palm at the distal palmar crease. Dorsally over the hand she is markedly tender in between the fourth and fifth metacarpal heads. Thereis palpable snapping in this area that seems to related to an accessory juncturae tendinum. It alsofeels as though she has some snapping more proximally along the fifth metacarpal. When she feels snapping she has pain that radiates up her arm. ROM/Strength: She is able to fully flex her finger. She feels some mild tightness over her flexor tendon, but there is no evidence of persistent triggering. She is able to reproduce the snapping sensation over the left small finger MCP joint with MCP joint flexion and extension. Orthopedic testing: Negative Tinel's over the carpal tunnel. Phalen's and Tomasz's compression causes pain in the hand and wrist, but no distinct tingling in the median nerve distribution. Neurovascular: She reports a generalized tingling sensation throughout her hand that seems to be exacerbated with her snapping sensation. Hand is well perfused. She has a slight tremor in the hand, but no distinct intrinsic atrophy. RADIOLOGICAL STUDIES: Previous x-rays and MRI were reviewed. There are no clear- cut abnormalities in the location of her symptoms. It was noted in the radiology report that there was some residual fluid along the flexor tendon. ASSESSMENT: Left small finger pain with dorsal snapping likely related to an accessory juncturae tendinum PLAN: Ms. Romero and I discussed her radiologic findings and physical exam findings. Dr. Ortiz also evaluated and spoke with the patient at today's visit. We will proceed with a dynamic ultrasound to evaluate this in more detail. If her symptoms are related to a snapping accessory juncturae tendinum this could potentially be addressed with surgery. It is possible that she may have more localized inflammation in this area and her symptoms could improve with continued symptomatic treatment, butwe will be able to discuss more definitive management after her ultrasound. She would like to proceed with this today if possible. If the ultrasound cannot be done today it should be performed on a day when Dr. Ortiz is available so that he can personally review the ultrasound with radiology. Thepatient understands to contact us if they have any other questions or concerns. The above documentation was completed using [employer] voice recognition software. documented in this encounter Miscellaneous Notes * Addendum Note - Emery Ortiz MD - 08/11/2015 2:49 PM ESTAddended by: EMERY ORTIZ on: 08/11/2015 02:49 PM Modules accepted: Orders documented in this encounter Plan of Treatment Not on file documented as of this encounter Results * XR Limited Ultrasound [...] Dr. Ortiz was present at the exam. Emery Ortiz MD IMG DX ORDERABLES documented in this encounter Visit Diagnoses Diagnosis Pain in finger of left hand Pain in limb Pain in finger of left hand Pain in limb documented in this encounter Administered Medications Inactive Administered Medications - up to 3 most recent administrations Medication Order MAR Action Action Date Dose Rate Site betamethasone acetate-betamethasone sodium phosphate (CELESTONE) injection 6 mg 6 mg, Intra-Lesional, ONCE, 1 dose, On Tue08/11/15 at 1515, Trigger finger injection by physician, Routine Given 08/11/2015 2:47 PM EST 6 mg lidocaine (XYLOCAINE) 10 mg/mL (1 %) injection 10 mg 10 mg, Subdermal, ONCE, 1 dose, On 08/11/15 at 1515, Routine Given 08/11/2015 2:48 PM EST 10 mg documented in this encounter Care Teams Client Success Specialist Relationship Specialty Start Date End Date Chelsy Abbasi APRN [address] [place] [address] PCP - General General Internal Medicine 08/11/1508/04 documented as of this encounter
--- OUTSIDE RECORDS SUMMARY | 2023-12-27 01:05 | XMS_ITS | Encounter Summary ---
Author [facility] [place] [address] Care Team Providers Care Gyn Name Role Phone Salvatore Berman MD Primary Care Provider [phone] Reason for Visit * Reason Onset Date Comments Other 05/09/2013 Encounter Details Date Type Department Care Team (Late st Contact Info) Description 05/09/2013 Telephone [place] [phone] Kirstie Ramirez MD [facility] [place] [address] Other Social History Tobacco Use Types Packs/Day [...] encounter Miscellaneous Notes * Telephone Encounter - Alecia NunezRAMANA - 05/09/2013 12:[address] Ramirez: I received papers, and had signed them, and given them to Beatriz to transmit. Thanks, kirstie ramirez * Telephone Encounter - Alla Rios - 05/09/2013 11:00 AM EST Patient call regarding information sent from Dr. Mendze Ghosh othopaedist, prosthetics, regarding the fitting for her leg braces. Dr. Ghosh is asking for Dr. Ramirez to sign off on the braces so that Medicaid will pay for them. Her appointment is tomorrow and the Is requesting the information prior to the appoinment at 10:30 am. documented in this encounter Plan of Treatment Not on file documented as of this encounter Visit Diagnoses Not on filedocumented in this encounter Care Teams Gyn Relationship Specialty Start Date End Date Salvatore Berman MD PCP - General 04/28/10 08/10/15 documented as of this encounter
--- OUTSIDE RECORDS SUMMARY | 2023-12-27 01:05 | XMS_ITS | Encounter Summary ---
[place] [address] Care Team Providers Care Medicare Biller Name Role Phone Salvatore Berman MD Primary Care Provider [phone] Encounter Details Date Type Department Care Team (Late st Contact Info) Description 03/16/2015 - 03/16/2015 11:59 PM EDT Hospital Encounter [place] [phone] Dr Mariam Temporary Pain Discharge Disposition: Home [...] daily. 12/05/2023 meloxicam (MOBIC) 7.5 mg Tablet Take 1 tablet by mouth daily. 30 tablet 11 02/18/2015 08/11/2015 baclofen (LIORESAL) 10 mg Tablet Take 1 tablet by mouth 4 times daily. 120 tablet 02/18/2015 08/19/2015 amitriptyline (ELAVIL) 50 mg Tablet TAKE 1 TABLET BY MOUTH NIGHTLY 30 tablet 12/09/2014 07/08/2015 topiramate (TOPAMAX) 25 mg Tablet Take 2 tablets by mouth 2 times daily. 120 tablet 5 10/10/2014 05/09/2015 albuterol (PROVENTIL HFA;VENTOLIN HFA) 90 mcg/actuation inhaler Inhale 2 puffs into the lungs daily as needed for Wheezing. Use with spacer 1 Inhaler 11/20/2013 04/08/2015 naproxen sodium (ANAPROX) 550 mg tablet Take 1 tablet by mouth 2 times daily as needed. 60 tablet 07/10/2012 08/16/2016 CALCIUM CARBONATE (TUMS ORAL)Indications:Migrai ne Take 1 tablet by mouth daily. 11/07/2017 aspirin 325 mg tablet Take 325 mg by mouth daily. 11/07/2017 documented as of this encounter Plan of Treatment Not on file documented as of this encounter Procedures Procedure Name Priority Date/Time Associated Diagnosis Comments FILM LIBRARY STORAGE ONLY DX HAND Routine 03/16/2015 12:00 AM EDT Pain documented in this encounter Results * Film Library- Storage only DX Hand (03/16/2015 12:00 AM EDT) Narrative [facility] - 07/08/2015 4:16 PM EST See PACS for result report. Dr James [facility] FILM LIBRARY ORD ERABLES [place], [place] documented in this encounter Visit Diagnoses Diagnosis Pain Generalized pain documented in this encounter Care Teams Medicare Biller Relationship Specialty Start Date End Date Salvatore Berman MD PCP - General 04/28/10 08/10/15 documented as of this encounter
--- OUTSIDE RECORDS SUMMARY | 2023-12-27 01:05 | XMS_ITS | Encounter Summary ---
Author Organization [facility] [place] [address] Care Team Providers Care Douper Name Role Phone Salvatore Berman MD Primary Care Provider [phone] Reason for Visit * Reason Comments Medication Refill Encounter Details Date Type Department Care Team (Late st Contact Info) Description 02/21/2013 [place] [address] Julio Welsh MD [facility] [place] [address] Social History Tobacco Use Types Packs/Day Years [...] on filedocumented in this encounter Care Teams Douper Relationship Specialty Start Date End Date Salvatore Berman MD PCP - General 11/23/10 3/6/16 documented as of this encounter
--- OUTSIDE RECORDS SUMMARY | 2023-12-27 01:05 | XMS_ITS | Encounter Summary ---
Author Organization [facility] [place] [address] Care Team Providers Care Highway Engineering Technician Name Role Phone Chelsy Abbasi APRN Primary Care Provider [phone] Encounter Details Date Type Department Care Team (Late st Contact Info) Description 10/08/2015 2:00 PM EDT Office Visit Audiology at [address] [address] Amelia Wooten AUD [facility] [place] [address] Left ear hearing loss; Left-sided tinnitus Social History Tobacco Use Types Packs/Day Years [...] as of this encounter Progress Notes * Amelia Wooten AUD - 10/08/2015 2:37 PM EDT AUDIOLOGY SECTION AUDIOLOGIC EVALUATION [place], [place] Yuli Romero was seen on 10/08/2015 for an audiologic evaluation in conjunction with her appointment with NAYE Hernandez, in Otolaryngology. Please refer to the scanned audiogram listed under ???Chart Review?? and Scan Doc for findings, impressions and recommendations. Please note that it may take up to 24 hours for the audiogram to be scanned. Demetrius Sifuentes Clinical Leather Production Machine Operator [facility] [place] [address] documented in this encounter Plan of Treatment Not on file documented as of this encounter Visit Diagnoses Diagnosis Left ear hearing loss Unspecified hearing loss Left-sided tinnitus Unspecified tinnitus documented in this encounter Care Teams Highway Engineering Technician Relationship Specialty Start Date End Date Chelsy Abbasi APRN [address] [place] [place] [address] PCP - General General Internal Medicine 08/11/1508/04 documented as of this encounter
--- OUTSIDE RECORDS SUMMARY | 2023-12-27 01:05 | XMS_ITS | Encounter Summary ---
Author Organization [facility] [place] [address] Care Team Providers Care Dress Designer Name Role Phone Salvatore Berman MD Primary Care Provider [phone] Reason for Visit * Reason Onset Date Comments Medication Refill 09/26/2014 Encounter Details Date Type Department Care Team (Late Contact Info) Description 09/26/2014 [place] [address] Julio Welsh MD [facility] [place] [address] Social History Tobacco Use Types Packs/Day Years [...] on filedocumented in this encounter Care Teams Dress Designer Relationship Specialty Start Date End Date Salvatore Berman MD PCP - General 04/28/10 08/10/15 documented as of this encounter
--- OUTSIDE RECORDS SUMMARY | 2023-12-27 01:05 | XMS_ITS | Encounter Summary ---
Author Organization [facility] [place] [address] Care Team Providers Care Stockkeeper Name Role Phone Salvatore Berman MD Primary Care Provider [phone] Reason for Visit * Reason Onset Date Comments Other 07/28/2012 Encounter Details Date Type Department Care Team (Late st Contact Info) Description 07/28/2012 [place] [phone] Lewis Park MD [facility] [place] [address] Other Social History Tobacco Use Types Packs/Day [...] encounter Miscellaneous Notes * Telephone Encounter - [place] - 07/28/2012 4:34 PM EST Spoke to Dnauta at [employer], prescription clarified. * Telephone Encounter - Fernanda Masters - 07/28/2012 2:25 PM EST [facility] pharmacy needs clarification on the medication Dexamethasone. Please call back to discuss further. documented in this encounter Plan of Treatment Not on file documented as of this encounter Visit Diagnoses Not on filedocumented in this encounter Care Teams Stockkeeper Relationship Specialty Start Date End Date Salvatore Berman MD PCP - General 04/28/10 08/10/15 documented as of this encounter
--- OUTSIDE RECORDS SUMMARY | 2023-12-27 01:05 | XMS_ITS | Encounter Summary ---
Author Organization [facility] [place] [address] Care Team Providers Care Green Marketing Analyst Name Role Phone Salvatore Berman MD Primary Care Provider [phone] Encounter Details Date Type Department Care Team (Late st Contact Info) Description 11/20/2013 9:45 AM EDT [place] [phone] Julio Welsh MD [facility] [place] [address] Migraine (Primary Dx) Discharge Disposition: Home Social History Tobacco Use [...] Sign Reading Time Taken Comments Blood Pressure 102/58 11/20/2013 9:51 AM EDT Pulse 72 11/20/2013 9:51 AM EDT Temperature - - Respiratory Rate - - Oxygen Saturation - - Inhaled Oxygen Concentration - - Weight 85.3 kg (188 lb) 11/20/2013 9:51 AM EDT Height 165.1 cm (5' 5) 11/20/2013 9:51 AM EDT r eported Body Mass Index 31.28 11/20/2013 9:51 AM EDT documented in this encounter Patient Instructions * Patient Instructions* Julio Welsh MD - 11/20/2013 10:34 AM EDT I Think you're doing reasonably well. Your neurological exam is stable. If you're getting more headaches try taking the naproxen and hydroxyzine together for a few days. For really severely headaches you can use Imitrex as well. if you have headaches, dizziness or numbness, symptoms similar to those which yo had before, I suggest not going to the emergency room because they will do another CAT scan, and I think you've already had too many, and it increases your risk of cancer. If there is something new that seems seriouslywrong, then of course go to the emergency room. That is particularly true for any big change in your vision. I will see you back in 6 months or sooner if necessary. Julio Welsh MD Department [place] [address] Pager: [phone], #[phone] Email: [email or web address] documented in this encounter Progress Notes * Julio Welsh MD - 11/20/2013 10:23 AM EDT Chief Complaint: Headaches, stroke, [...] including back hip and leg discomfort are stable. She is getting some migrainous headaches and paresthesias similar to what she has had before. Past medical history: Patient Active Problem List [...] bladder function is stable. Physical Exam: BP 102/58 Pulse 72 Ht 165.1 cm (5' 5) Wt 85.276 kg (188 lb) BMI 31.28 kg/m2 Head, eyes, ears, nose and throat were normal. There was no significant tenderness today Heart and lungs were normal. Extremities were [...] eye. Visual acuity was 20/30 at her last visit and not checked today. Cranial nerves are otherwise unremarkable. She has [...] a mildly spastic and ataxic gait. She has bilateral AFO braces, but was not wearing them today Medications: Current Outpatient Prescriptions Medication Sig Dispense Refill ??? amitriptyline (ELAVIL) 50 mg tablet Take 1 tablet by mouth nightly. 90 tablet 1 ??? topiramate (TOPAMAX) 25 mg tablet Take 2 tablets by mouth 2 times daily. 120 tablet 5 ??? baclofen (LIORESAL) 10 mg tablet Take 1 tablet by mouth 3 times daily. 90 tablet 11 ??? SUMAtriptan (IMITREX) 50 [...] daily as needed. 60 capsule 0 ??? albuterol (PROVENTIL HFA;VENTOLIN HFA) 90 mcg/actuation [...] change. I reinforced the need to use Her naproxen and hydroxyzine when she gets milder headaches. I reinforced that she should not go to the emergency room for symptoms that are similar to what titi had earlier and which have resolved in a few hours. The problem is that whenever she goes theresomeone thinks she needs a CAT scan, and [...] change in her vision is reason to the emergency room, owing to the history of herpetic infection. 4. She has fluctuating musculoskeletal symptoms that are doing reasonably well at the moment. Thank you for this consultation. I will see her back in 6 months or sooner as needed. Julio Welsh MD [place] [address] Pager: [phone], #[phone] Email: [email or web address] cc: Dr. Berman documented in this encounter Plan of Treatment Not on file documented as of this encounter Visit Diagnoses Diagnosis Migraine- Primary Migraine, unspecified, without mention of intractable migraine without mention of status migrainosus documented in this encounter Care Teams Green Marketing Analyst Relationship Specialty Start Date End Date Salvatore Berman MD PCP - General 04/28/10 08/10/15 documented as of this encounter
--- OUTSIDE RECORDS SUMMARY | 2023-12-27 01:05 | XMS_ITS | Encounter Summary ---
Author Organization [facility] [place] [address] Care Team Providers Care Elastic Cutter Name Role Phone Salvatore Berman MD Primary Care Provider [phone] Encounter Details Date Type Department Care Team (Late st Contact Info) Description 09/12/2012 9:45 AM EDT [place] [phone] Julio Welsh MD [facility] [place] [address] Migraine (Primary Dx) Discharge Disposition: Home Social [...] Sign Reading Time Taken Comments Blood Pressure 114/73 09/12/2012 9:41 AM EDT Pulse 98 09/12/2012 9:41 AM EDT Temperature - - Respiratory Rate - - Oxygen Saturation - - Inhaled Oxygen Concentration - - Weight 86.8 kg (191 lb 6.4 oz) 09/12/2012 9:41 A M EDT Height 152.4 cm (5') 09/12/2012 9:41 AM EDT Body Mass Index 37.38 09/12/2012 9:41 AM EDT documented in this encounter Patient Instructions * Patient Instructions* Julio Welsh MD - 09/12/2012 10:36 AM EDT I think you're doing quite well. Migraine headaches appear to be somewhat improved. I am not sure we can make them much less frequent than once or twice a week. Please stay on the same medications. Yourr blood tests were fine in July and I don't think we need any today. The tingling in your hands and feet is probably a side effect of Topamax. It sually wears off. If headaches get worse please call. I would like to see you back in 6 months or sooner if the problem worsens. Julio Welsh MD Department [place] [address] Pager: [phone], #[phone] Email: [email or web address] documented in this encounter Progress Notes * Julio Welsh MD - 09/12/2012 10:22 AM EDT Chief Complaint: Headaches, stroke, and [...] She has had no additional visual disturbances. When I saw her 2 months ago she was doing worse with her headaches. She was needing symptomatic treatment about once every other day . The pain was and is severe posterior with some radiation to the vertex, worse on the right. She is often nauseated. We initiated prophylactic treatment the Topamax,and also I advised her not to use Excedrin Migraine and other gdgs-qdu-sygnunq preparations. She isusing naproxen and Vistaril as needed. She is somewhat better. Headache are happening less frequently. She is down to about one per week. The Naprosyn and Vistaril work reasonably well for symptomatic relief. She is rarely needing Imitrex. Past medical history: Patient Active Problem List [...] 784.0 Review of systems: She is eating better. She has lsos 8 lbs.. Sleep is fair, occasionally disturbed by migraines. Bowel and bladder function is stable. Physical Exam: BP 114/73 Pulse 98 Ht 152.4 cm (5') Wt 86.818 kg (191 lb 6.4 oz) BMI 37.38 kg/m2 Head, eyes, ears, nose and throat [...] Tone is slightly increased on the left. Reflexes are brisk except for the left ankle reflex, which cannot be elicited. She has minor sensory deficits on the left side. She walks with a mildly spastic and [...] mg by mouth daily. Impression: The patient is neurologically stable, and doing somewhat better with regard to migraine. 1. As noted earlier, she had a [...] a part of her migraine 4. She has musculoskeletal back pain and leg pain. She can use naproxen as needed. I do not think there is much more that can be done. , walking exercise and weight loss are appropriate. Thank you for this consultation. I will see her back in 6 months or sooner as needed. Julio Welsh MD [place] [address] Pager: [phone], #[phone] Email: [email or web address] cc: Dr. Berman documented in this encounter Plan of Treatment Not on file documented as of this encounter Visit Diagnoses Diagnosis Migraine- Primary Migraine, unspecified, without mention of intractable migraine without mention of status migrainosus documented in this encounter Care Teams Elastic Cutter Relationship Specialty Start Date End Date Salvatore Berman MD PCP - General 04/28/10 08/10/15 documented as of this encounter
--- OUTSIDE RECORDS SUMMARY | 2023-12-27 01:05 | XMS_ITS | Encounter Summary ---
Author Organization [facility] [place] [address] Care Team Providers Care Junior Qa Analyst Name Role Phone Salvatore Berman MD Primary Care Provider [phone] Encounter Details Date Type Department Care Team (Late st Contact Info) Description 06/12/2015 - 06/12/2015 11:59 PM EST Hospital Encounter [place] [phone] Dr Mariam Temporary Pain Discharge Disposition: Home [...] times daily. 120 tablet 11 02/18/2015 08/19/2015 amitriptyline (ELAVIL) 50 mg Tablet TAKE 1 TABLET BY MOUTH NIGHTLY 30 tablet 5 12/09/2014 07/08/2015 naproxen sodium (ANAPROX) 550 mg tablet Take [...] Diagnosis Comments FILM LIBRARY STORAGE ONLY MR HAND Routine 06/12/2015 12:00 AM EST Pain documented in this encounter Results * Film Library- Storage only MR Hand (06/12/2015 12:00 AM EST) Narrative [facility] - 07/08/2015 4:07 PM EST See PACS for result report. Dr James [facility] FILM LIBRARY ORD ERABLES Performing Organization Address City/State/[facility] Co de Phone Number [place], [place] documented in this encounter Visit Diagnoses Diagnosis Pain Generalized pain documented in this encounter Care Teams Junior Qa Analyst Relationship Specialty Start Date End Date Salvatore Berman MD PCP - General 04/28/10 08/10/15 documented as of this encounter
--- OUTSIDE RECORDS SUMMARY | 2023-12-27 01:05 | XMS_ITS | Encounter Summary ---
[place] [address] Care Team Providers Care Mortgage Collector Name Role Phone Salvatore Berman MD Primary Care Provider [phone] Reason for Visit * Reason Onset Date Comments Other 03/21/2013 MRI results Encounter Details Date Type Department Care Team (Late Contact Info) Description 03/21/2013 [place] [phone] Julio Welsh MD [facility] [place] [address] Other (MRI results) Social History Tobacco Use Types Packs/Day Years [...] Telephone Encounter - Karlene Ocampo RN - 03/21/2013 3:[address] Welsh: MRI and x-rays are basically OK. She needs to continue with naproxen, and an exercise and weight-loss program. thanks Julio Welsh I phoned patient and instructed her per Dr. Welsh on above. Pt verbalizes understanding. * Telephone Encounter - Karlene Ocampo RN - 03/21/2013 10:01 AM EDT Pt asking for results of recent MRI and xrays. Will forward to Dr. Welsh. * Telephone Encounter - Beatriz Montes - 03/21/2013 9:18 AM EDT Patient is requesting a call back to discuss the results of her recent MRI last night. Please call the patient. documented in this encounter Plan of Treatment Not on file documented as of this encounter Visit Diagnoses Not on filedocumented in this encounter Care Teams Mortgage Collector Relationship Specialty Start Date End Date Salvatore Berman MD PCP - General 04/28/10 08/10/15 documented as of this encounter
--- OUTSIDE RECORDS SUMMARY | 2023-12-27 01:05 | XMS_ITS | Encounter Summary ---
Author Organization [facility] [place] [address] Care Team Providers Care Third Rail Installer Name Role Phone Salvatore Berman MD Primary Care Provider [phone] Encounter Details Date Type Department Care Team (Late st Contact Info) Description 04/16/2015 - 04/16/2015 12:14 AM EST Hospital Encounter [place] [phone] Dr Mariam Temporary Pain Discharge Disposition: Home [...] MOUTH NIGHTLY 30 tablet 5 12/09/2014 07/08/2015 topiramate (TOPAMAX) 25 mg Tablet Take 2 tablets by mouth 2 times daily. 120 tablet 5 10/10/2014 05/09/2015 naproxen sodium (ANAPROX) 550 mg [...] Diagnosis Comments FILM LIBRARY STORAGE ONLY DX WRIST Routine 04/16/2015 12:00 AM EST Pain documented in this encounter Results * Film Library- Storage only DX Wrist (04/16/2015 12:00 AM EST) Narrative [facility] - 07/08/2015 4:11 PM EST See PACS for result report. Dr James [facility] FILM LIBRARY ORD ERABLES Performing Organization Address City/State/[facility] Co de Phone Number [place], [place] documented in this encounter Visit Diagnoses Diagnosis Pain Generalized pain documented in this encounter Care Teams Third Rail Installer Relationship Specialty Start Date End Date Salvatore Berman MD PCP - General 04/28/10 08/10/15 documented as of this encounter
--- OUTSIDE RECORDS SUMMARY | 2023-12-27 01:05 | XMS_ITS | Encounter Summary ---
Author Organization [facility] [place] [address] Care Team Providers Care Cotton Farmworker Name Role Phone Chelsy Abbasi APRN Primary Care Provider [phone] Reason for Visit * Reason Onset Date Comments Medication Refill 08/11/2015 Encounter Details Date Type Department Care Team (Late Contact Info) Description 08/11/2015 [place] [address] Julio Welsh MD [facility] [place] [address] Social History Tobacco Use Types Packs/Day Years [...] on filedocumented in this encounter Care Teams Cotton Farmworker Relationship Specialty Start Date End Date Chelsy Abbasi APRN [address] [place] [address] PCP - General General Internal Medicine 08/11/1508/04 documented as of this encounter
--- OUTSIDE RECORDS SUMMARY | 2023-12-27 01:05 | XMS_ITS | Encounter Summary ---
Author Organization [facility] [place] [address] Care Team Providers Care Mechanical Sound Technician Name Role Phone Salvatore Berman MD Primary Care Provider [phone] Encounter Details Date Type Department Care Team (Late st Contact Info) Description 06/19/2013 9:45 AM EST [place] [phone] Julio Welsh MD [facility] [place] [address] Migraine (Primary Dx) Discharge Disposition: Home Social [...] Reading Time Taken Comments Blood Pressure 115/67 06/19/2013 9:38 AM EST Pulse 106 06/19/2013 9:38 AM EST Temperature - - Respiratory Rate - - Oxygen Saturation - - Inhaled Oxygen Concentration - - Weight 87.1 kg (192 lb) 06/19/2013 9:38 AM EST Patient wearing bilateral braces below the knee to feet. Height 152.4 cm (5') 06/19/2013 9:38 AM EST Body Mass Index 37.5 06/19/2013 9:38 AM EST documented in this encounter Patient Instructions * Patient Instructions* Julio Welsh MD - 06/19/2013 10:31 AM EST I think you're doing reasonably well. Overall there is no major neurological change. The pictures of your spine and hips showed minor arthritis but nothing seriously wrong. You left leg brace may need more adjustment and padding at the bottom. For the pain in your foot I think you need hot soaks, and treatment with naproxen as needed For the hand problems I think you need strengthening exercises and you should squeeze a soft rubberor sponge ball to strengthen the muscles in the hand. If there is pain you can use Naproxen as needed. Please keep your medicines unchanged. Please call with any problems I would like to see you back in 6 months or sooner if necessary. Julio Welsh MD [place] [address] Pager: [phone], #[phone] Email: [email or web address] documented in this encounter Progress Notes * Julio Welsh MD - 06/19/2013 10:11 AM EST Chief Complaint: Headaches, stroke, and hemiparesis. History: [...] uses naproxen and hydroxyzine Interval history: She continues variety of somatic complaints. Last time he was back and hip pain with symptoms of sciatica. We did plain films of the hips and MRI of the lumbar spine which were unremarkable. She is complaining more today of pain in the left foot with symptoms suggestive of plantar fasciitis, and some pain in the left hand. That since I last saw her she has been fitted with bilateral spring-loaded AFO braces which she is using quite effectively. Past medical history: Patient Active Problem List [...] function is stable. Physical Exam: BP 115/67 Pulse 106 Ht 152.4 cm (5') Wt 87.091 kg (192 lb) BMI 37.50 kg/m2 Head, eyes, ears, nose and throat were normal. There was no significant tenderness today Heart and lungs were normal. 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 She appears to have some plantar tenderness on the left. There is minor tenderness over the knuckles on the left, without dislocation She is mentally at baseline. Speech is normal. There is no sign of infection in either eye. She has complete loss of vision on the left and external deviation of the left eye. There is a stable left-sided visual field constriction in the right eye. Visual acuity is 20/30. Cranial nerves are otherwise unremarkable. She has more nystagmus in botheyes looking to the left. She has a [...] and ataxic gait. She has bilateral AFO braces Medications: Current Outpatient Prescriptions Medication Sig Dispense [...] was I believe a part of her migraine, 4. she continues to have a lot of fluctuating somatic symptoms. The MRI scan of the lumbar spine hips was unremarkable. Most of her complaints today are in her left hand and left foot. I recommended warm soaks and naproxen. A soft rubber ball squeezing exercise program for the left hand is probablybe a good idea. She may need some adjustments to the AFO brace on the left, as there are some signs of plantar fasciitis. Thank you for this consultation. I will see her back in 6 months or sooner as needed. Julio Welsh MD [place] [address] Pager: [phone], #[phone] Email: [email or web address] cc: Dr. Berman documented in this encounter Plan of Treatment Not on file documented as of this encounter Visit Diagnoses Diagnosis Migraine- Primary Migraine, unspecified, without mention of intractable migraine without mention of status migrainosus documented in this encounter Care Teams Mechanical Sound Technician Relationship Specialty Start Date End Date Salvatore Berman MD PCP - General 04/28/10 08/10/15 documented as of this encounter
--- OUTSIDE RECORDS SUMMARY | 2023-12-27 01:05 | XMS_ITS | Encounter Summary ---
Author Organization [facility] [place] [address] Care Team Providers Care Geometry Tutor Name Role Phone Salvatore Berman MD Primary Care Provider [phone] Reason for Visit * Reason Comments Medication Refill Encounter Details Date Type Department Care Team (Late st Contact Info) Description 12/06/2014 [place] [address] Julio Welsh MD [facility] [address] Social History Tobacco Use Types Packs/Day Years [...] Miscellaneous Notes * Telephone Encounter - Nathalie Jolly RN - 12/09/2014 10:17 AM EDT Pt calls for refills of baclofen and amitriptyline through [facility] pharmacy in [place], [place]. Last clinic visit: 08/14/2014 Next clinic visit: 02/18/2015 documented in this encounter Plan of Treatment Not on file documented as of this encounter Visit Diagnoses Not on filedocumented in this encounter Care Teams Geometry Tutor Relationship Specialty Start Date End Date Salvatore Berman MD PCP - General 04/28/10 08/10/15 documented as of this encounter
--- OUTSIDE RECORDS SUMMARY | 2023-12-27 01:05 | XMS_ITS | Encounter Summary ---
Author Organization [facility] [place] [address] Care Team Providers Care Catalogue Maker Name Role Phone Salvatore Berman MD Primary Care Provider [phone] Encounter Details Date Type Department Care Team (Latest Contact Info) Description 2013 4:45 PM EDT - 2013 11:59 PM EDT Hospital [place] [phone] CLINIC, Julio Fitzgerald MD [facility] [place] [address] Lumbar radiculopathy Discharge Disposition: Home Social History [...] daily. 11/07/2017 documented as of this encounter Miscellaneous Notes * Miscellaneous - Provider, Scanning - 04/03/2013 10:24 AM EDT documented in this encounter Plan of Treatment Not on file documented as of this encounter Procedures Procedure Name Priority Date/Time Associated Diagnosis Comments MRI LUMBAR SPINE WITHOUT CONTRAST Routine 2013 5:45 PM EDT Lumbar radiculopathy documented in this encounter Results * MRI lumbar spine [...] anatomic. The normal-appearing conus terminates at the [id number]. The disc spaces and vertebral body heights are maintained. No aggressive marrow lesions. The visualized retroperitoneal structures appear normal. No significant canal or neural foraminal narrowing identified. Impression No significant abnormalities detected. Julio Welsh MD IMG MRI ORDERABLES documented in this encounter Visit Diagnoses Diagnosis Lumbar radiculopathy Thoracic or lumbosacral neuritis or radiculitis, unspecified documented in this encounter Care Teams Catalogue Maker Relationship Specialty Start Date End Date Salvatore Berman MD PCP - General 04/28/10 08/10/15 documented as of this encounter
--- OUTSIDE RECORDS SUMMARY | 2023-12-27 01:06 | XMS_ITS | Encounter Summary ---
Author [facility] [place] [address] Care Team Providers Care Electrician Marine Name Role Phone Salvatore Berman MD Primary Care Provider [phone] Reason for Visit * Reason Onset Date Comments Other 03/09/2012 Pt needs Prior a uthorization for Albuterol Encounter Details Date Type Department Care Team (Late st Contact Info) Description 03/09/2012 [place] [phone] Julio Welsh MD [facility] [place] [address] Other (Pt needs Prior authorization for Albuterol) Social History Tobacco Use Types Packs/Day Years [...] encounter Miscellaneous Notes * Telephone Encounter - Jazlyn Saha - 03/09/2012 1:25 PM EDT Patient needs a prior-authorization for : albuterol (PROVENTIL HFA;VENTOLIN HFA) 90 mcg/actuation inhaler 1 Inhaler 11 03/08/2012 Sig - Route:Inhale 2 puffs into the lungs daily as needed for Wheezing. Use with spacer - Inhalation Pharmacy: [id number] documented in this encounter Plan of Treatment Not on file documented as of this encounter Visit Diagnoses Not on filedocumented in this encounter Care Teams Electrician Marine Relationship Specialty Start Date End Date Salvatore Berman MD PCP - General 04/28/10 08/10/15 documented as of this encounter
--- OUTSIDE RECORDS SUMMARY | 2023-12-27 01:06 | XMS_ITS | Encounter Summary ---
Author Organization [facility] [place] [address] Care Team Providers Care Car Porter Name Role Phone Salvatore Berman MD Primary Care Provider [phone] Reason for Visit * Reason Onset Date Comments Medication Refill 06/07/2012 Encounter Details Date Type Department Care Team (Late st Contact Info) Description 06/07/2012 [place] [phone] Julio Welsh MD [facility] [place] [address] Migraine (Primary Dx) Social History Tobacco Use Types Packs/Day Years [...] encounter Miscellaneous Notes * Telephone Encounter - Francisco Patricia R - 06/07/2012 12:00 PM EST Name of Med: Elavil Strength of Pills: 50mg Dosing Directions: take 1 tablet nightly 30 or 90 Day: 30 Pharmacy: [id number] Last Appointment: 03/08/2012 Next Appointment: 07/10/2012 documented in this encounter Plan of Treatment Not on file documented as of this encounter Visit Diagnoses Diagnosis Migraine- Primary Migraine, unspecified, without mention of intractable migraine without mention of status migrainosus documented in this encounter Care Teams Car Porter Relationship Specialty Start Date End Date Salvatore Berman MD PCP - General 04/28/10 08/10/15 documented as of this encounter
--- OUTSIDE RECORDS SUMMARY | 2023-12-27 01:06 | XMS_ITS | Encounter Summary ---
Author Organization [facility] [place] [address] Care Team Providers Care Billiard Table Repairer Name Role Phone Salvatore Berman MD Primary Care Provider Reason for Visit * Reason Onset Date Comments Medication Refill 05/16/2012 Encounter Details Date Type Department Care Team (Late st Contact Info) Description 05/16/2012 [place] [phone] Julio Welsh MD [facility] [place] [address] Social History Tobacco Use Types Packs/Day Years [...] encounter Miscellaneous Notes * Telephone Encounter - Patricia Singh - 05/16/2012 1:02 PM EST Name of Med: Lioresal Strength of Pills: 10mg Dosing Directions: 1 tab 3 times daily 30 or 90 Day: 30 Pharmacy: [id number] Last Appointment: 03/08/2012 Next Appointment: 07/10/2012 documented in this encounter Plan of Treatment Not on file documented as of this encounter Visit Diagnoses Not on filedocumented in this encounter Care Teams Billiard Table Repairer Relationship Specialty Start Date End Date Salvatore Berman MD PCP - General 04/28/10 08/10/15 documented as of this encounter
--- OUTSIDE RECORDS SUMMARY | 2023-12-27 01:06 | XMS_ITS | Encounter Summary ---
Author Organization [facility] [place] [address] Care Team Providers Care Traffic Superintendent Name Role Phone Salvatore Berman MD Primary Care Provider [phone] Reason for Visit * Reason Comments Migraine Encounter Details Date Type Department Care Team ([facility] Contact Info) Description 03/08/2012 3:15 PM EDT [place] [id number] Julio Welsh MD [facility] [place] [address] Migraine (Primary Dx) Discharge Disposition: Home Social [...] Sign Reading Time Taken Comments Blood Pressure 114/66 03/08/2012 2:58 PM EDT Pulse 89 03/08/2012 2:58 PM EDT Temperature - - Respiratory Rate - - Oxygen Saturation - - Inhaled Oxygen Concentration - - Weight 86.3 kg (190 lb 4.8 oz) 03/08/2012 2:58 P M EDT Height 152.4 cm (5') 03/08/2012 2:58 PM EDT Body Mass Index 37.17 03/08/2012 2:58 PM EDT documented in this encounter Patient Instructions * Patient Instructions* Julio Welsh MD - 03/08/2012 4:11 PM EDT Overall I think you're doing about the same. For headache prevention please stay on the amitriptyline (Elavil) and an aspirin a day. when you get a headache it is okay to use Excedrin 2 pills 3 times a day as needed. Don't take thatmore than one or 2 days in a week. If headaches are happening more frequently than that we need to consider other measures For pains in your legs you can use ibuprofen as needed Please ask your boyfriend if you are stopping breathing at night. If he says yes we need to arrangean overnight sleep study for you, and you may need to go on a breathing task I would like to see you back in 3 or 4 months sooner if any problems arise. documented in this encounter Progress Notes * Julio Welsh MD - 03/08/2012 3:58 PM EDT Chief Complaint: Headaches, stroke, and hemiparesis. History: The patient is seen in followup today. 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 She also suffers from migraine which produces intermittent visual disturbances. MRI scans have shown a stable right parietal lesion. She was seen inophthalmology today and her vision is believed to be stable She is doing quite well. She feels no worsening of her congenital weakness, low she is having some pain in the opposite leg. Her headaches are doing quite well. She needs symptomatic treatment about once a week. She has had no additional visual disturbances. She feels that Excedrin Migraine works best, better than either the indomethacin or ibuprofen combined with hydroxyzine that I had recommended Review of systems: She is eating or right. Sleep is somewhat disturbed according to her boyfriend. She has some jerky movements. I asked her to inquire with him whether he is noticing sleep apnea. Bowel and bladder function is stable. Physical Exam: BP 114/66 Pulse 89 Ht 152.4 cm (5') Wt 86.32 kg (190 lb 4.8 oz) BMI 37.17 kg/m2 Head, eyes, ears, nose and throat were normal. There is no sign of infection in either eye. She has complete loss of vision on the left and external deviation of the left eye. In the right eye, vision is 20/25 using her glasses and 14-inch card. There is a stable left-sided visual field [...] not using her brace today. Medications: Current outpatient prescriptions Medication Sig Dispense Refill ??? albuterol (PROVENTIL HFA;VENTOLIN HFA) 90 mcg/actuation inhaler Inhale 2 puffs into the lungs daily as needed for Wheezing. Use with spacer 1 Inhaler 11 ??? CALCIUM CARBONATE (TUMS ORAL) Take by mouth daily. ??? amitriptyline (ELAVIL) 50 mg tablet Take 1 tablet by mouth nightly. 60 tablet 1 ? DISCONTD: hydrOXYzine (VISTARIL) 25 mg capsule Take by mouth. one pill twice a day as needed. 60 capsule 5 ??? baclofen (LIORESAL) 10 mg tablet take 1 tablet by mouth three times a day 90 tablet 5 ??? aspirin 325 mg tablet Take 325 mg by mouth daily. ??? raloxifene (EVISTA) 60 mg tablet Take 60 mg by mouth daily. ??? valACYclovir (VALTREX) 500 mg tablet Take 500 mg by mouth daily. ??? kfnncsd-oavzhrtfighnp-khyutlrk (EXCEDRIN MIGRAINE) 250-250-65 mg per tablet Take 2 tablets by mouth 3 times daily as needed for Pain. 30 tablet 0 Impression: The patient is doing reasonably well. 1. As noted earlier, she had a stroke at the time of with no evidence of recurrence. Her MRI scan is stable. 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 2. She suffers from migraine. This is doing quite well on Elavil for prevention and and she can useExcedrin Migraine for acute relief provided he does not use it more than one or 2 days in a week. Idiscussed this with her in detail 3. Her vision problems appear to have stabilized. Some of this was I believe a part of her migraine 4. She has musculoskeletal back pain and leg pain. She can use ibuprofen as needed. I do not think there is much more that can be done for Thank you for this consultation. I will see her back in 4 months or sooner if necessary. cc: Glenn Castanon MD Jose [address] [place] [address] Wyatt Ernandez MD Jose [address] [place] [address] Jorge Villa MD documented in this encounter Plan of Treatment Not on file documented as of this encounter Visit Diagnoses Diagnosis Migraine- Primary Migraine, unspecified, without mention of intractable migraine without mention of status migrainosus documented in this encounter Care Teams Traffic Superintendent Relationship Specialty Start Date End Date Salvatore Berman MD PCP - General 04/28/10 08/10/15 documented as of this encounter
--- OUTSIDE RECORDS SUMMARY | 2023-12-27 01:06 | XMS_ITS | Encounter Summary ---
[place] [address] Care Team Providers Care Property Damage Claims Adjustor Name Role Phone Salvatore Berman MD Primary Care Provider [phone] Reason for Visit * Reason Comments Eye Problem Encounter Details Date Type Department Care Team (Latest Contact Info) Description 12/23/2011 Unscheduled [place] [address] Stewart Ge MD [facility] [place] [address] Transient visual disturbance, right; Acute retinal necrosis of left eye; Afferent pupillary defect, left eye; Headache Social History Tobacco Use Types Packs/Day Years [...] as of this encounter Progress Notes * Stewart Ge MD - 12/23/2011 10:51 PM EDT Encounter Diagnoses Name Primary? Transient visual disturbance, right ??? Acute retinal necrosis of left eye ??? Afferent pupillary defect, left eye ??? Headache Yuli Romero is a 36 y.o. with headache and transient visual loss OD in a patient with a historyof acute retinal necrosis OS at age 20. ARN can recur even years after the initial episode and can be accompanied by herpetic encephalitis. Fortunately, I did not see any evidence of ARN on exam today (white eye, no AC or vit cell, no retinal lesions) and her vision appears to be improving. She had a similar episode of transient visual loss associated with headaches in 2006- and this may represent a similar episode. I would defer to the neurology service in the evaluation of this patient at this point but would recommend close follow up by Dr. Ernandez her usual cable mock up assembler when she returnshome. Plan: - Follow up 1-[address] Ernandez ( this note to him) or as at [facility] needed - Findings and concerns discussed with Yuli and she expressed understanding. -Upon Return CEE documented in this encounter Nursing Notes * 12/23/2011 12:00 PM EDT >> STEWART GE MD [facility] Dec 23, 2011 10:52 PM Reports floaters and visual loss OD in the last day along with intense migraine headache. Asked by Dr Grayson (ER) to evaluate. Reports evaluation with one of Dr. Ernandez's colleagues in [facility] report normal exam today. When she came to the [facility] ER vision was initially in 20/400 range, now 20/40 and she feels vision is improved because she less photophobic. [facility] is notable for ARN with visual loss OS, right sided CVA in infancy and longstanding history of headache and transient visual loss- see episode in 2006. documented in this encounter Plan of Treatment Not on file documented as of this encounter Visit Diagnoses Diagnosis Transient visual disturbance, right Unspecified visual disturbance Acute retinal necrosis of left eye Other retinal disorders Afferent pupillary defect, left eye Pupillary abnormalities Headache(784.0) Headache documented in this encounter Care Teams Property Damage Claims Adjustor Relationship Specialty Start Date End Date Salvatore Berman MD PCP - General 04/28/10 08/10/15 documented as of this encounter
--- OUTSIDE RECORDS SUMMARY | 2023-12-27 01:06 | XMS_ITS | Encounter Summary ---
Author Organization [facility] [place] [address] Care Team Providers Care Nut Culler Name Role Phone Salvatore Berman MD Primary Care Provider [phone] Encounter Details Date Type Department Care Team (Late st Contact Info) Description 01/05/2012 8:30 AM EDT Office [place] [phone] Litzy Rodriguez MD [facility] [place] [address] Migraine (Primary Dx) Discharge Disposition: Home Social [...] Sign Reading Time Taken Comments Blood Pressure 119/54 01/05/2012 8:23 AM EDT Pulse 78 01/05/2012 8:23 AM EDT Temperature - - Respiratory Rate - - Oxygen Saturation - - Inhaled Oxygen Concentration - - Weight 78 kg (172 lb) 01/05/2012 8:23 AM EDT Height 152.4 cm (5') 01/05/2012 8:23 AM EDT Body Mass Index 33.59 01/05/2012 8:23 AM EDT documented in this encounter Progress Notes * Litzy Rodriguez MD - 01/05/2012 2:06 PM EDT I have seen the patient and reviewed the resident's above history and I agree with the details as written. The assessment and plan were formulated in discussion with me and I agree with them as documented. * Alok Carlos - 01/05/2012 9:13 AM EDT Subjective: Patient ID: Yuli Romero is a 36 y.o. female. 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 Seen by Dr. Garzon 12/22 as part of ED visit for at that time 5 days history of right sided eye vision changes from 20/20 to 20/50, righteye pain, noted floaters at that time. Patient received MRI orbit which noted no acute right eye pathology, or demyelinating lesions. Patient seen as outpatient by Dr Garzon, treated as migraines with Amitriptyline. Currently patient states no improvement of right eye pain, reduced right eye vision, periorbital numbness. Patient denies n/v/d/cp/sob. Medications: Current outpatient prescriptions:CALCIUM CARBONATE (TUMS ORAL), Take by mouth daily., Disp: , Rfl: ; indomethacin (INDOCIN) 25 mg capsule, Take by mouth. one pill twice a day as needed, Disp: 60 capsule, Rfl: 5; hydrOXYzine (VISTARIL) 25 mg capsule, Take by mouth. one pill twice a day as needed., Disp: 60 capsule, Rfl: 5; baclofen (LIORESAL) 10 mg tablet, take 1 tablet by mouth three times a day,Disp: 90 tablet, Rfl: 5 albuterol (PROVENTIL HFA;VENTOLIN HFA) 90 mcg/Actuation inhaler, Inhale 2 puffs into the lungs daily as needed for Wheezing. Use with spacer, Disp: 1 Inhaler, Rfl: 1; aspirin 325 mg tablet, Take 325 mg by mouth daily., Disp: , Rfl: ; raloxifene (EVISTA) 60 mg tablet, Take 60 mg by mouth daily., Disp: , Rfl: ; valACYclovir (VALTREX) 500 mg tablet, Take 500 mg by mouth daily., Disp: , Rfl: amitriptyline (ELAVIL) 25 mg tablet, Take by mouth. Take one pill every night, Disp: 30 tablet, Rfl: 11 Vitals: Last value Range last 24 hrs Temperature Heart Rate Heart Rate: 78 Heart Rate: [78] Blood Pressure BP: 119/54 mmHg BP: (119)/(54) Respiratory Rate Resp: -- SpO2 SpO2: -- Wt Readings from Last 3 Encounters: 01/05/12 78.019 kg (172 lb) 12/23/11 85 kg (187 lb 6.3 oz) 12/24/10 83.008 kg (183 lb) Physical Exam: Imaging: MRI Brain 12/23/11: Findings Compared to the prior study, there has been no significant interval change in the right parietal encephalomalacia with adjacent FLAIR hyperintensity. The ventricles are normal. The optic nerves are symmetric and do not abnormally enhance post contrast administration. The left globe is abnormal. A left lens is not identified and there is a scleral buckle similar to the prior exams. The right globe is normal. The extraocular muscles and orbital fat are normal. No masses identified. The paranasal sinuses are well aerated. Impression No evidence of optic neuritis. Stable right parietal encephalomalacia. Stable appearance of the left eye. ASSESSMENT/PLAN: 36 y.o. female with pmh of migraines, infantlile CVA with residual left sided motor/sensory effects, left sided torn retina with loss of vision presents with persistent reduced right sided visual vision. Reduced Right sided Visual Acuity Given no acute right sided findings on MRI orbit, less likely MS related optic neuritis. 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 Patient has been on amitriptyline 25mg, with no marked effect, will increase dose to 50mg daily, monitor for improvement of symptoms. Patient f/u with Dr. Garzon in 03/2012, re-evalaute at that time. Given chronicty of symptoms seizure is less likely in this patient. -Increase Amitriptyline -f/u Neurology 03/2012 Alok Carlos 01/05/2012 Pager #[phone] Review of Systems Objective: Physical Exam Assessment and Plan: No problem-specific visit notes found for this encounter. documented in this encounter Plan of Treatment Not on file documented as of this encounter Visit Diagnoses Diagnosis Migraine- Primary Migraine, unspecified, without mention of intractable migraine without mention of status migrainosus documented in this encounter Care Teams Nut Culler Relationship Specialty Start Date End Date Salvatore Berman MD PCP - General 04/28/10 08/10/15 documented as of this encounter
--- OUTSIDE RECORDS SUMMARY | 2023-12-27 01:06 | XMS_ITS | Encounter Summary ---
Author Organization [facility] [place] [address] Care Team Providers Care Assembled Wood Products Repairer Name Role Phone Salvatore Berman MD Primary Care Provider [phone] Reason for Visit * Reason Comments Eye Problem 2 month check *([facility] ), saw Dr Ernandez Encounter Details Date Type Department Care Team (Late st Contact Info) Description 03/08/2012 9:00 AM EDT Follow-[place] [phone] Anisha Eaton MD 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 Unfortunately the reliability on her field test was poor. On exam today, she hd nothing in her left globe to explain her symptoms. MRI from December 2011 was reviewed and showed only past findings. Reassurance given. Patient was encouraged to wear spectacles for safety reasons as well. Recommend continued follow upwith retina as needed. Patient is seen in neurology for her significant headaches. 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 She notes that she woke up and could not see anything out of her right eye which returned after a couple of hours about 3 months ago. This occurs off and on- can see but it's a struggle. She feels she cannot read like she used to and is always running into things. She feels it is worse when she hasa migraine which she has about 1-2 times per week. She takes amytryptilline for her headaches. She was getting headaches daily before starting the medicine. She has had headaches for years. She last had neuroimaging- CT and MRI done December 24, 2011, which showed no new etiology to explain her vision decline: No evidence of optic neuritis. Stable right parietal encephalomalacia. She continues to feel that her vision comes and goes more commonly. She feels like her eye is swollen. No traumas to eyes. >> JACINTA CHRISTIANSON TueMar 08, 2012 9:[address] Ernandez ~1-2 months ago. Hx NLP, OS due to ARN. History of CVA, R as an infant. Reports today that she is having headaches at least once a week with a blurring of VA, OD. Reports a swollen sensation, around the OD. Pt points to R cheek and R taoism areas. documented in this encounter Plan of Treatment Not on file documented as of this encounter Procedures Procedure Name Priority Date/Time Associated Diagnosis Comments AUTOMATED VISUAL FIELD - EXTENDED - OD - RIGHT EYE Routine 03/08/2012 10:04 AM EDT Visual field defect documented in this encounter Results * AUTOMATED VISUAL FIELD - EXTENDED - OD - RIGHT EYE (03/08/2012 10:04 AM EDT) Anatomical Region Laterality Modality Other Narrative 03/08/2012 10:04 AM EDT Dense left hemianopia, global depression 23.1 Poor reliability on test Procedure Note Anisha Eaton MD - 03/08/2012 Dense left hemianopia, global depression 23.1 Poor reliability on test Anisha Eaotn MD OPHTHALMOLOGY SERVIC ES ORDERABLES documented in this encounter Visit Diagnoses Diagnosis Visual field defect- Primary Visual field defect, unspecified Headache(784.0) Headache Transient visual disturbance, right Unspecified visual disturbance Acute retinal necrosis of left eye Other retinal disorders documented in this encounter Care Teams Assembled Wood Products Repairer Relationship Specialty Start Date End Date Salvatore Berman MD PCP - General 04/28/10 08/10/15 documented as of this encounter
--- OUTSIDE RECORDS SUMMARY | 2023-12-27 01:06 | XMS_ITS | Encounter Summary ---
Author Organization [facility] [place] [address] Care Team Providers Care Hearing Dog Trainer Name Role Phone Salvatore Berman MD Primary Care Provider [phone] Reason for Visit * Reason Onset Date Comments Medication Problem 12/25/2010 Medication re -fill request Encounter Details Date Type Department Care Team (Late st Contact Info) Description 12/25/2010 [place] [address] Julio Welsh MD [facility] [place] [address] Social History Tobacco Use Types Packs/Day Years [...] * Telephone Encounter - Jazlyn Saha - 12/25/2010 9:09 AM EDT ALBUTEROL SULFATE INHL 12/24/2010 Sig - Route: Inhale 2 puffs into the lungs daily as needed. - Inhalation Pharmacy: [facility] [place], [place]- documented in this encounter Plan of Treatment Not on file documented as of this encounter Visit Diagnoses Not on filedocumented in this encounter Care Teams Hearing Dog Trainer Relationship Specialty Start Date End Date Salvatore Berman MD PCP - General 04/28/10 08/10/15 documented as of this encounter
--- OUTSIDE RECORDS SUMMARY | 2023-12-27 01:06 | XMS_ITS | Encounter Summary ---
Author Organization [facility] [place] [address] Care Team Providers Care Phlebotomist Lab Assistant Name Role Phone Salvatore Berman MD Primary Care Provider [phone] Reason for Visit * Reason Comments Medication Refill Encounter Details Date Type Department Care Team (Late st Contact Info) Description 03/29/2011 [place] [address] Julio Welsh MD [facility] [place] [address] Social History Tobacco Use Types Packs/Day Years [...] on filedocumented in this encounter Care Teams Phlebotomist Lab Assistant Relationship Specialty Start Date End Date Salvatore Berman MD PCP - General 11/23/10 3/6/16 documented as of this encounter
--- OUTSIDE RECORDS SUMMARY | 2023-12-27 01:06 | XMS_ITS | Encounter Summary ---
Author Organization [facility] [place] [address] Care Team Providers Care Recreational Specialist Name Role Phone Salvatore Berman MD Primary Care Provider [phone] Reason for Visit * Reason Onset Date Comments Other 07/25/2012 Encounter Details Date Type Department Care Team (Late st Contact Info) Description 07/25/2012 Telephone [place] [phone] Julio Welsh MD [facility] [place] [address] Other Social History Tobacco Use Types Packs/Day [...] encounter Miscellaneous Notes * Telephone Encounter - Mayra, Mary RAMANA Fisher - 07/25/2012 10:19 AM EST Reason for call: Pt reports with an update for Dr Welsh. She has been taking the naproxen and vistaril every other day as prescribed along with the topamax 25 mg BID and treatment has been ineffective. She has stopped taking the excedrin and ibuprofen as instructed. In past 2 weeks she has had only 1 24 hours period migraine free. Last night she tells me she woke up due to migraine and vomited.This morning she says the right side of her face feels swollen and hurts, she says this happen whenshe has a migraine. What is Dr Welsh's recommendation? Plan: I informed the pt that I would send a message to Dr Welsh to ask what he advises and then Iwould call her back. Pt was agreeable with this plan. * Telephone Encounter - Patricia Singh - 07/25/2012 8:29 AM EST Patient called to report to Dr Welsh she only had one 24 hour period in two weeks with out a migraine. Patient is having daily migraines still. Please call to advise. documented in this encounter Plan of Treatment Not on file documented as of this encounter Visit Diagnoses Not on filedocumented in this encounter Care Teams Recreational Specialist Relationship Specialty Start Date End Date Salvatore Berman MD PCP - General 04/28/10 08/10/15 documented as of this encounter
--- OUTSIDE RECORDS SUMMARY | 2023-12-27 01:06 | XMS_ITS | Encounter Summary ---
Author Organization [facility] [place] [address] Care Team Providers Care Structural Engineering Technician Name Role Phone Salvatore Berman MD Primary Care Provider [phone] Reason for Visit * Reason Onset Date Comments Other 06/21/2012 Encounter Details Date Type Department Care Team (Late st Contact Info) Description 06/21/2012 [place] [id number] Julio Welsh MD [facility] [place] [address] Other Social History Tobacco Use Types Packs/Day [...] Miscellaneous Notes * Telephone Encounter - Alecia Nunez LPN - 06/22/2012 9:08 AM EST 06/22/12 at 9:15 am Follow up call: I spoke to the pt to inform her that Dr Welsh would like her to take 2 to 3 tabs of Aleve ( Naproxen) combined with 1 tab Benadryl ( 25 mg) twice a day for next 3days. If her headache is no relieved, she should call our office and be seen next week. Pt agreed that she understood this plan. * Telephone Encounter - Julio Welsh MD - 06/22/2012 8:23 AM EST Please get her to take naproxen (Alev)e 2-3 tablets twice a day combined with one tablet of Benadryl twice a day for the next 3 days. If he headache is not relieved, we will need to see her next week. Julio Welsh M.D. * Telephone Encounter - Alecia Nunez LPN - 06/21/2012 2:18 PM EST Acute Headache / Migraine Last Appointment: 03/08/12 Next Appointment: 07/10/12 Provider: Julio Welsh MD Primary Question/ Concern Today: What can pt do to relieve migraine that she has had for past 2 weeks? She reports to me that about 2 to 3 weeks ago she fell and hit back of head while in [place] for a baby shower. She went to the ED because she felt she had pulled muscles in chest after fall. No CT scan or MRI was done. Shortly after this a migraine came on and she has been able to relieve it. Pt experiencing nausea, vomiting and diarrhea. She tells me that when she has migraine she typically feelsphysically ill. REPORT ON CURRENT CONCERN: When did migraine start: 2 weeks ago Location of the pain: Back of head Any light sensitivity: Yes Any sound sensitivity: Yes Any nausea: Yes Any vomiting: Yes Denies blurry or double vision, pt tells me her right eye also swells during her migraines Pain on scale of 1-10: 10 for past week Is this a typical migraine: yes What rescue meds have been tried: Excedrin Migraine Results: has helped in past but not recently Any aggravating factors: no Any other alleviating factors: no Current Medications: Excedrin Migraine 2 tabs TID PRN not more than 2 times per week Elavil 50 mg nightly GENERAL QUESTIONS ( for any positive response note explanation) Any current sleep concerns : No Any current appetite or eating concerns: Yes , difficult eating as nauseous and vomiting with diarrhea Any other current pain concerns: No Any new worries, stressors, or routine changes: Yes , 2 friend have recently and another friend had brain surgery Any recent Illness: No Any recent Injuries: Yes , fell and hit back of head Intervention/Plan/Follow Up: I informed the pt that I would send a message to Dr Welsh and then Iwould call her back with his recommendation. I advised that if her symptoms or pain worsens she should go to her local ED. PT agreeable to this plan. * Telephone Encounter - Beatriz Montes - 06/21/2012 1:26 PM EST Patient has had a horrible migraine for the last two weeks. Patient advises that her right eye swells and she experiencing diarrhea and vomiting when she has the migraines. Please call the patient todiscuss. documented in this encounter Plan of Treatment Not on file documented as of this encounter Visit Diagnoses Not on filedocumented in this encounter Care Teams Structural Engineering Technician Relationship Specialty Start Date End Date Salvatore Berman MD PCP - General 04/28/10 08/10/15 documented as of this encounter
--- OUTSIDE RECORDS SUMMARY | 2023-12-27 01:06 | XMS_ITS | Encounter Summary ---
[place] [address] Care Team Providers Care [employer] Technology Manager Name Role Phone Salvatore Berman MD Primary Care Provider [phone] Reason for Referral * Consultation (Urgent) - Closed Specialty Diagnoses / Procedures Referred By Jay ireland Referred To Contact Neurology Danuta Amaro MD [facility] [place] [address] [facility] Neu[facility] [address] [place] [address] Referral ID Status Reason Start Date Expiration Date V isits Requested Visits Authorized [id number] Closed Assume Subset of Care 12/24/2011 06/21/2012 1 1 Reason for Visit * Reason Comments Eye Problem Encounter Details Date Type Department Care Team (Late st Contact Info) Description 12/23/2011 3:20 PM EDT - 12/24/2011 12:44 AM EDT [place] [address] Loida Mccoy MD [facility] [place] [address] Danuta Amaro MD [facility] [place] [address] Ocular migraine Discharge Disposition: Home Social History Tobacco Use [...] Sign Reading Time Taken Comments Blood Pressure 102/53 12/24/2011 12:36 AM EDT Pulse 75 12/24/2011 12:36 AM EDT Temperature 36.8 ??C (98.2 ??F) 12/23/2011 9:45 PM ED T Respiratory Rate 16 12/23/2011 9:45 PM EDT Oxygen Saturation 96% 12/23/2011 9:45 PM EDT Inhaled Oxygen Concentration - - Weight 85 kg (187 lb 6.3 oz) 12/23/2011 3:31 PM EDT Height - - Body Mass Index 32.17 12/24/2010 3:43 PM EDT documented in this encounter Discharge Instructions * Discharge Instructions* Danuta Amaro MD - 12/24/2011 12:28 AM EDT You were seen in the Emergency Department today for evaluation of a headache and decreased vision in your right eye. A CT scan and MRI were also done as part of your evaluation, and they did not showany emergent problems. This was all likely due to a complex migraine, as your pain resolved and vision improved after the migraine medicines were given. Seen by Dr Ge from Ophthalmology. Your eyewas dilated for the eye exam, so your vision will likely remain blurry for the next several hours. The medicines given for the migraine will make you sleepy for the next several hours too, so you should rest and not operate any machinery. If you have a similar pain behind your eye again in the future, you can try your usual migraine remedies, but please come to the emergency department if your eye or skin next to it appears swollen, red, or becomes warmer than the other eye. Please return to the Emergency department if your vision changes or you develop floaters again. Follow-up with your neurologist, Dr. Welsh, at your soonest convenience. * Attachments The following attachments cannot be sent through Care Everywhere. * MIGRAINE HEADACHE: AFTER YOUR VISIT (BELIZEAN) * REDUCED VISION: AFTER YOUR VISIT (BELIZEAN) documented in this encounter Medications at Time of Discharge Medication Sig Dispensed Refills Start Date End Date valACYclovir (VALTREX) 500 mg tablet Take 500 mg by mouth daily. 12/24/2010 raloxifene (EVISTA) 60 mg tablet Take 60 mg by mouth daily. 12/05/2023 baclofen (LIORESAL) 10 mg tablet take 1 tablet by mouth three times a day 90 tablet 5 03/29/2011 05/16/2012 albuterol (PROVENTIL HFA;VENTOLIN HFA) 90 mcg/Actuation inhaler Inhale 2 puffs into the lungs daily as needed for Wheezing. Use with spacer 1 Inhaler 1 12/25/2010 03/08/2012 aspirin 325 mg tablet Take 325 mg by mouth daily. 11/07/2017 indomethacin (INDOCIN) 25 mg capsule Take by mouth. Take one pill twice a day as needed 60 capsule 11 12/24/2010 12/28/2011 hydrOXYzine (VISTARIL) 25 mg capsule Take by mouth. Take one pill twice a day as needed. 60 capsule 11 12/24/2010 12/28/2011 amitriptyline (ELAVIL) 25 mg tablet Take by mouth. Take one pill every night 30 tablet 11 12/24/2010 01/05/2012 documented as of this encounter ED Notes * Dot Inman - 12/24/2011 12:03 AM EDT First contact with patient. Sts, I feel a lot better and I'm ready to go home. Dr. Grayson aware. Pt resting on stretcher with friend at bedside. Call salcedo in reach. * Andrade Wilkinson - 12/23/2011 10:52 PM EDT CC: Headache x2 days, R vision loss since this AM HPI: Pt. Is a 36 yo F who presents with R frontal headache w/ subjective feelings of periorbital swelling/pain for the last 2 days. She awoke this morning with very fuzzy vision and some black floaters. She describes the pain as behind her R eye and it feels like it's swollen. The pain was madeworse by bright lights and opening R eye wide. She was seen at her normal optometry office, who sent her here after saying something about possible inflammation in the back of the eye. They did a dilated eye exam there, and did not mention anything about a retinal detachment to the patient. She has a history of migraines, but says that this is different than her typical migraine symptoms. She denies any history of numbness/weakness above her baseline. She has had 2-3 episodes of partially formed diarrhea over the past two days. She denies any sick contacts, hearing change, rhinorrhea, sore throat, cough, SOB, chest pain, abd pain, N/V, dysuria, dizziness. 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 PMH: CP from brain bleed, ARN L eye, migraine headaches, asthma PSH: No past surgical history on file. All: Allergies Allergen Reactions ??? Sulfamethoxazole-trimethoprim ??? Fluconazole Meds: No current facility-administered medications on file prior to encounter. Current outpatient prescriptions ordered prior to encounter Medication Sig Dispense Refill ??? baclofen (LIORESAL) 10 mg tablet take 1 tablet by mouth three times a day 90 tablet 5 ??? albuterol (PROVENTIL HFA;VENTOLIN HFA) 90 mcg/Actuation inhaler Inhale 2 puffs into the lungs daily as needed for Wheezing. Use with spacer 1 Inhaler 1 ??? aspirin 325 mg tablet Take 325 mg by mouth daily. ??? raloxifene (EVISTA) 60 mg tablet Take 60 mg by mouth daily. ??? valACYclovir (VALTREX) 500 mg tablet Take 500 mg by mouth daily. ??? indomethacin (INDOCIN) 25 mg capsule Take by mouth. Take one pill twice a day as needed 60 capsule 11 ??? hydrOXYzine (VISTARIL) 25 mg capsule Take by mouth. Take one pill twice a day as needed. 60 capsule 11 ??? amitriptyline (ELAVIL) 25 mg tablet Take by mouth. Take one pill every night 30 tablet 11 ROS: See HPI, all other systems reviewed and negative PE: Vitals: Patient Vitals in the past 8 hrs: BP Temp Temp src Pulse Resp SpO2 Weight 12/23/11 2145 102/52 mmHg 36.8 ??C (98.2 ??F) Oral 71 16 96 % - 12/23/11 1945 116/71 mmHg 36.7 ??C (98.1 ??F) Oral 78 16 95 % - 12/23/11 1715 107/68 mmHg - - - - 96 % - 12/23/11 1700 114/57 mmHg - - - - 96 % - 12/23/11 1645 110/65 mmHg - - - - 94 % - 12/23/11 1630 111/71 mmHg - - - - 96 % - 12/23/11 1615 117/82 mmHg - - - - 97 % - 12/23/11 1613 117/67 mmHg - - 74 16 98 % - 12/23/11 1531 124/85 mmHg 37 ??C (98.6 ??F) - 80 16 97 % 85 kg (187 lb 6.3 oz) Gen: Awake, alert, appropriate, NAD HEENT: Stable afferent pupillary defect L eye (accomodates, otherwise 3mm non- reactive). R pupil is5 mm and reactive to light. Visual field in R eye is normal. R Optic disc visualized and normal, nodetached retina observed. Acuity 20/200 at admission, improved to 20/40 w/o intervention after several hours. No periorbital swelling, erythema, or temperature difference. Tenderness in the R periorbital region for 2-3 cm surrounding globe. Sclera and conjunctiva are intact and w/o hemorrhage. OP clear, no icterus observed. CV: RRR, no MRG Resp: CTAB Abd: Soft, +BS, NT/ND Ext: 1+ swelling L ankle. Neuro: CN II discussed above, CN XI weak on L, otherwise CN exam normal. 4-/5 strength on L (at baseline per pt.), full sensation. Labs: Orbital CT - Abnormal, but unchanged appearance of the left eye. No evidence of mass or inflammation on the right. Orbital MRI - Right parietal encephalomalcic change, stable from prior exam 11/2008 Optic nerves are symmetric and do not abnormally enhance. Left eye is abnormal, but stable in appearance from prior exam A/P: Trevon. Is a 36 yo F who presents with RIVAS, periorbital pain, and decreased vision in the L eye. Given normal fundoscopic exam and lack of evidence for retinal detachment, a CT was obtained and negative for any periorbital cellulitis or masses. An orbital MRI was then obtained to assess for optic ne uritis, which was negative. She was seen by her neurologist, Dr. Welsh, who suggested that this could be a complex migraine. She was also seen by Ophtho, whose bed-side dilated eye exam was normal and negative for ARN. Migraine treatment was started with IV droperidol, benadryl, and fluids. DHE was also given. If these treatments do not shakira migraine, then we plan to pursue admission by Neuro for further work up and pain control. * Fady Inman RN - 12/23/2011 10:27 PM EDT in to evaluate pt's eye's, family remains in the room with pt, call salcedo in reach. * Fady Inman RN - 12/23/2011 10:27 PM EDT Patient is resting comfortably. * Fady Inman RN - 12/23/2011 9:15 PM EDT Returned from CT-clinical status unchanged, pt states she still has numbness around her right eye. Family remains in room, call salcedo in reach. * Danuta Amaro MD - 12/23/2011 8:48 PM EDT ED ATTENDING FOLLOW-UP NOTE: See Medical student note for ROS, etc Patient interviewed and examined by me independently. Medical student has participated in care of patient. I have reviewed, but not altered, the Medical student note, and have indicated my findings below, in some instances may be different from medical student documentation. Time of transfer of care: 1999 Care transferred from: Nadine Condition at time of transfer: stable Clinical Summary: 36 y.o. old female in the process of being evaluated for Vision loss. Please see Dr. mccoy notes for their initial evaluation, assessment and plan. 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 Now with RIVAS and periorbital right eye pain, with loss of right eye vision. Saw wheelchair van operator first responder who called neurology and sent patient to the ED. In ED Dr mccoy reports normalexam except for visual acuity. Dr Welsh recommended MRI and then consider Atypical Ocular Migraine. 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 Also describing floaters. Given possibility of recurrence Dr Ge dilated eyeand saw normal fundoscopic exam, no iritis, acuity on my exam 20/40 OD Treatment with IVF, droperidol, benadryl Had improvement in visual symptoms and headache, felt swelling and retro-orbital discomfort gone. Declined DHE or magnesium because she felt well enough to return home Final Assessment: Ocular migraine Final Plan: Discharge home Migraine meds as needed Follow up with Dr Welsh Follow up with personal avionics supervisor as needed Return for vision changes, red eye, fever, pain Condition at Discharge: stable Danuta Amaro MD 12/24/11 0048 * Fady Inman RN - 12/23/2011 8:00 PM EDT To MRI. * Fady Inman RN - 12/23/2011 7:52 PM EDT Pt taking po without difficulty-has filled out MRI form and is waiting to be transferred to [facility]. Family remains @ pt side, call salcedo in reach. * Fady Inman RN - 12/23/2011 7:28 PM EDT Patient is resting quietly on stretcher, neurology in to assess pt. Call denisse in [employer], clinical status unchanged, friend @ pt's side. * Loida Mccoy MD - 12/23/2011 7:23 PM EDT Chief Complaint Patient presents with ??? Eye Problem HPI 36-year-old female who has had right periorbital pain for the past 3 days and awoke this morning with significant blurring of her vision and inability to see even using her glasses. She is blind in her left eye prior herpes infection. She says she has had mild numbness around her right eye which has increased to involve part of her cheek over the course of today. As of her visual change she was seen by her avionics supervisor who told her to come here to see a neurologist. No paperwork was sent with her and patient does not recognize the term optic neuritis when I asked her if this was the concern. She complains of some mild photophobia and pain when she moves her eyes. She had some floating objects in her field of vision this morning. She currently describes it as just blurry. She denies any recent trauma, discharge, increased lacrimation, fever or systemic symptoms. Past medical historyis significant for a CVA at with resultant cerebral palsy. She is otherwise healthy except for migraines. She has no history of autoimmune problems that she is aware of. Allergies Allergen Reactions ??? Sulfamethoxazole-trimethoprim ??? Fluconazole Review of Systems Constitutional: Negative for fever. HENT: Negative for congestion and neck pain. Eyes: Positive for photophobia, pain and visual disturbance. Negative for discharge. Gastrointestinal: Negative for nausea and vomiting. Musculoskeletal: Negative for myalgias. Skin: Negative for rash. Neurological: Positive for numbness and headaches (periorbital only). Physical Exam Nursing note and vitals reviewed. Constitutional: She is oriented to person, place, and time. She appears well- developed and well-nourished. No distress. HENT: Head: Normocephalic. Mouth/Throat: Oropharynx is clear and moist. Eyes: Conjunctivae are normal. Right pupil is round and reactive. This appears normal with positive venous pulsations. Struck another movements are intact but causes pain in the right eye with movement in all patricia. The orbital skin is without rash, erythema or warmth but is tender to palpation. Neck: Normal range of motion. Neck supple. Cardiovascular: Normal rate, regular rhythm and normal heart sounds. Pulmonary/Chest: Effort normal and breath sounds normal. No respiratory distress. Abdominal: Soft. No tenderness. Neurological: She is alert and oriented to person, place, and time. Decreased sensation over the right zygoma Skin: Skin is warm and dry. No rash noted. Psychiatric: She has a normal mood and affect. Her behavior is normal. Procedures MDM Number of Diagnoses or Management Options Ocular migraine: new, needed workup Amount and/or Complexity of Data Reviewed Tests in the radiology section of CPT??: ordered and reviewed Review and summarize past medical records: yes Discuss the patient with other providers: yes Independent visualization of images, tracings, or specimens: yes Risk of Complications, Morbidity, and/or Mortality Presenting problems: moderate Patient Progress Patient progress: improved ED Course: CT scan shows normal extraocular movements and no retrobulbar swelling, mass or abscess. The patient was signed out pending MRI of the orbit. Her symptoms are certainly concerning for and consistent with ocular neuritis as a manifestation of MS. Loida Mccoy MD 12/25/11 1535 * Earnestine Mar RN - 12/23/2011 7:00 PM EDT Patient is resting comfortably. * Earnestine Mar RN - 12/23/2011 6:16 PM EDT Pt to CT on stretcher * Earnestine Mar RN - 12/23/2011 5:19 PM EDT Patient is resting comfortably. No needs at this time. documented in this encounter Miscellaneous Notes * Discharge Summary - Provider, Scanning - 12/24/2011 9:09 AM EDT * Consult Note - Julio Welsh MD - 12/23/2011 9:19 PM EDT Neurology Consult Note Patient name:Yuli Romero Date of :1975 Admit date: 12/23/2011 Attending: CC: blurry vision of right eye We have been asked to see Yuli Romero by ED for right eye vision impairment HPI: Yuli Romero is a 36 y.o. woman with a history of left eye blindness who was seen by an wheelchair van operator first responder today and was noted to have decreased visual acuity of the right eye. Patient reports having a blurry vision of right eye associated with headache x 3 days. (+) tingling sensation of right face, (+) baseline left sided weakness (+) mild right leg weakness & tingling sensation x 2 days. (+) fl ashing lights associated with headache, but no nausea. 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 Sulfamethoxazole-trimethoprim ??? Fluconazole Family history: History reviewed. No pertinent family history. Social history: History Social History Narrative ??? No narrative on file Review of systems: Constitutional: No fevers or chills Eyes: (+) left eye blindness, (+) right eye blurry vision ENT: No rhinorrhea or pharyngitis, no meningismus CV: No chest pain or palpitations Resp: No cough, no shortness of breath GI: No nausea, vomiting, (+) diarrhea x 2 days : No dysuria, no incontinence Heme: No bleeding or bruising Endo: No diabetes or thyroid disease Neuro: See HPI Psych: No depression, normal sleep [x] Review of systems otherwise negative Physical Exam: Vitals: Temp: [36.7 ??C (98.1 ??F)-37 ??C (98.6 ??F)] Heart Rate: [71-80] Resp: [16] BP: (102-124)/(52-85) SpO2: [94 %-98 %] Constitutional: Patient of apparent stated age, well nourished, well developed, no acute distress Neck: Supple, no meningismus, no carotid bruit CV: RRR, S1, S2, no murmur Resp: CTAB Abd: Soft, nontender, nondistended Ext: No edema. No bony deformity Neuro: MS: Alert, oriented, clear language, no dysarthria CN: PERRL on right, right eye EOMI, (+) left eye blindness, 20/50 visual acuity on right eye, (+) tingling sensation on right face, trigeminal sensation intact, no facial asymmetry, hearing intact towhisper, palate elevates symmetrically, tongue protrudes midline, SCM and trap strength intact Motor: Normal bulk. Slightly increased tone in right leg. Moderately increased tone in left leg. 5/5 strength in right extremities, 4/5 in left extremities Sensation: Intact to light touch throughout Reflexes: 2+ DTRs in UE, +3 in LE, downgoing toes Gait: Stable Labs: No results found for this or any previous visit (from the past 24 hour(s)). Diagnostic Tests and Imaging: CT orbits without contrast - Abnormal, but unchanged appearance of the left eye. No evidence of mass or inflammation on the right. Assessment / Recommendation Yuli Romero is a 36 y.o. woman with PMH of herpes infection, left eye blindness, infantile stroke with right hemiplegia, and migraine headaches. Patient presents with worsening vision in the right eye. Otherwise stable. -rule out right eye involvement with herpes infection (left eye blindness attributed to herpes) -MRI of the orbits done - F/U report -if above is normal, manage migraine headache -patient seen by Dr Welsh (a known patient to him) -supportive care Lewis Park MD Neurology Resident, PGY2 Pager [phone] Neurology Attending I saw and evaluated the patient with the neurology team. I have reviewed the resident's history during the visit and I agree with the details as written. My physical examination confirms the resident's findings. The assessment and plan were formulated in discussion with me at the time of the visit and I agree with them as documented. Pertinent History: The patient is well known to me from clinic. As noted above she has a history of infantile stroke and hemiparesis syndrome. 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 Shehas a history of migrainous headaches without aura. These have responded fairly well to treatment with amitriptyline indomethacin and hydroxyzine. She now presents with blurred vision and scotomata in her right eye, in the context of headache and facial paresthesias. CT scan of the head is unchanged Pertinent Exam: Visual acuity is 20/50 in the right eye, and zero in the left eye. At baseline she is 20/20 with glasses in the right eye. The pupil on the right is round and reactive. On the left it is smaller and unreactive. The optic disc and retina look normal on the right, and there is extensive retinal degeneration on the left. Eye movements are full but somewhat disconjugate and saccadic. There is no pathological nystagmus. The rest of the cranial nerves are unremarkable except for some subjective numbness around the right eye and cheek. Motor exam is noteworthy for a mild left hemiparesis which is her baseline. She feels subjectively little weaker. Tone is increased bilaterally which is her baseline, more so on the direct take left side. Reflexes are 3+ and brisk on the left. There is no Babinskisign. Cerebellar function is normal. Her gait is mildly ataxic at baseline. Pertinent Diagnostic Studies: MRI of orbits with gadolinium is requested. Major issues addressed and Plan: It seems unlikely that this problem is due to ocular pathology, although that is possible. She may have optic neuritis but there is no obvious ocular pathology. I very much doubt that this is herpes infection of the kind that destroyed vision in her left eye. Are most likely we're dealing with the new onset of migraine with aura where as previously she has had only migraine without aura. If the MRI scan is unremarkable, I would favor treating her for migraine with intravenous magnesium2 g IV or dihydroergotamine 1 mg and an antiepileptic agent. If the MRI scan is abnorma, or if she does not improve with acute treatment, then I think it is reasonable to admit her to neurology for further evaluation and treatment. Julio Welsh MD * Miscellaneous - Provider, Scanning - 12/23/2011 6:09 PM EDT * ED Triage - Sherry Ribeiro RN - 12/23/2011 3:33 PM EDT Patient has had a migraine headache x 3 Days. Today she awoke with pain, floaters and blurriness toright eye. She was seen by opthalmology and referred here. She can only see the E on the eye chart.She is blind in her left eye from an infection. documented in this encounter Plan of Treatment Scheduled Referrals Name Type Priority Associated Diagnoses Orde r Schedule REFERRAL TO NEUROLOGY Outpatient Referral Routine Ordered: 12/24/2011 documented as of this encounter Procedures Procedure Name Priority Date/Time Associated Diagnosis Comments MRI ORBIT W CONTRAST STAT 12/23/2011 9:[address] ORBITS WO CONTRAST STAT 12/23/2011 6:28 PM EDT documented in this encounter Results * MRI orbit with contrast (12/23/2011 9:07 PM EDT) Anatomical Region Laterality Modality Head Magnetic Resonan ce 12/23/2011 9:07 PM EDT Narrative 12/24/2011 8:47 AM EDT Examination MR Orbit With Ar Clinical History Reason for exam and clinical history: pain and vision loss with periorbital numbness - R/O optic neuritis, demyelination; Comparison MRI brain 11/11/2008 and 02/24/2007. Technique Contrast-enhanced MR imaging of the brain and orbits using 18 cc of intravenous Magnevist. Findings Compared to the prior study, there [...] encephalomalacia. Stable appearance of the left eye. Film and interpretation reviewed by the attending Procedure Note Ifeanyi Calvillo MD - 12/24/2011 Examination MR Orbit With Ar Clinical History Reason for exam and clinical history: pain and vision loss withperiorbital numbness - R/O optic neuritis, demyelination; Comparison MRI brain 11/11/2008 and 02/24/2007. Technique Contrast-enhanced MR imaging of the brain and orbits using 18 cc ofintravenous Magnevist. Findings Compared to the prior study, there has been no significant interval changein the right parietal encephalomalacia with adjacent FLAIR hyperintensity.The ventricles are normal. The optic nerves are symmetric and do notabnormally enhance post contrast administration. The left globe is abnormal. A leftlens is not identified and there is a scleral buckle similar to the priorexams. The right globe is normal. The extraocular muscles and orbital fat are normal.No masses identified. The paranasal sinuses are well aerated. Impression No evidence of optic neuritis. Stable right parietal encephalomalacia. Stable appearance of the left eye. Film and interpretation reviewed by the attending Loida Mccoy MD IMG MRI ORDERABLES * CT ORBITS WO CONTRAST (12/23/2011 6:28 PM EDT) Anatomical Region Laterality Modality Head Computed Tomogra phy 12/23/2011 6:28 PM EDT Narrative 12/23/2011 6:[address] Orbits Without Contrast Clinical History Reason for exam and clinical history: periorbital pain and vision loss, pain with EOM - r/o mass, swelling; Comparison Brain MRI 11/11/2008. Technique CT of the orbits performed without the use of intravenous contrast. Findings Abnormal appearing left lobe, with no lens identified, and a scleral buckle is similar to the prior MRI. The right globe appears normal in density. ??The extra-ocular muscles are normal. ??The fat of the right orbit is normal in appearance. ??There is no evidence of mass or inflammation. ??The osseous structures appear normal. ??Paranasal sinuses are well aerated. Impression Abnormal, but unchanged appearance of the left eye. ??No evidence of mass or inflammation on the right. Procedure Note Hermann Crowley MD - 12/23/[address] Orbits Without Contrast Clinical History Reason for exam and clinical history: periorbital pain and vision loss,pain with EOM - r/o mass, swelling; Comparison Brain MRI 11/11/2008. Technique CT of the orbits performed without the use of intravenous contrast. Findings Abnormal appearing left lobe, with no lens identified, and a scleralbuckle is similar to the prior MRI. The right globe appears normal in density. The extra-ocular muscles are normal. The fat of the right orbit is normal in appearance. There is no evidence of mass or inflammation. The osseous structures appear normal. Paranasal sinuses are well aerated. Impression Abnormal, but unchanged appearance of the left eye. No evidence of massor inflammation on the right. Loida Mccoy MD IMG CT ORDERABLES documented in this encounter Visit Diagnoses Diagnosis Ocular migraine Other forms of migraine, without mention of intractable migraine without mention of status migrainosus documented in this encounter Administered Medications Inactive Administered Medications - up to 3 most recent administrations Medication Order MAR Action Action Date Dose Rate Site diphenhydrAMINE (BENADRYL) injection 50 mg 50 mg, Intravenous, ONCE, 1 dose, On Clarissa 12/23/11 at 2230, STAT Given 12/23/2011 10:30 PM EDT 50 mg droperidol (INAPSINE) injection 1.25 mg 1.25 mg, Intravenous, ONCE, 1 dose, On Clarissa 12/23/11 at 2230, Routine Given 12/23/2011 10:30 PM EDT 1.25 mg gadopentetate dimeglumine (MAGNEVIST) injection 18 mL 18 mL, Intravenous, ONCE PRN, Per Protocol, Starting on Clarissa 12/23/11 at 2109, 1 dose, Until Clarissa 12/23/11 at 2054 Given 12/23/2011 8:55 PM EDT 18 mLs sodium chloride 0.9% infusion 1,000 mL, Intravenous, ONCE, 1 dose, On Clarissa 12/23/11 at 2230 New Bag 12/23/2011 10:30 PM EDT 1,000 mLs mL/hr documented in this encounter Active and Recently Administered Medications Times are shown in EDT. Scheduled Medication Order 12/22/2011 12/23/2011 12/24/2011 diphenhydrAMINE (BENADRYL) injection 50 mg (COMPLETED) 50 mg, Intravenous, ONCE, 1 dose, On Clarissa 12/23/11 at 2230, STAT 2230 (Given - Provider: Fady Inman, GUI) droperidol (INAPSINE) injection 1.25 mg (COMPLETED) 1.25 mg, Intravenous, ONCE, 1 dose, On Clarissa 12/23/11 at 2230, Routine 2230 (Given - Provider: Fady Inman RN) sodium chloride 0.9% infusion (CANCELED) 1,000 mL, Intravenous, ONCE, 1 dose, On Clarissa 12/23/11 at 2230 2230 (New Bag - Provider: Tha Inman RN) PRN Medication Order 12/22/2011 12/23/2011 12/24/2011 gadopentetate dimeglumine (MAGNEVIST) injection 18 mL (COMPLETED) 18 mL, Intravenous, ONCE PRN, Per Protocol, Starting on Clarissa 12/23/11 at 210, 1 dose, Until Clarissa 12/23/11 at 2054 2054 (Given - Provider: Brian Gutierrez) documented in this encounter Care Teams Biodiesel Technology Manager Relationship Specialty Start Date End Date Salvatore Berman MD PCP - General 04/28/10 08/10/15 documented as of this encounter
--- OUTSIDE RECORDS SUMMARY | 2023-12-27 01:06 | XMS_ITS | Encounter Summary ---
Author Organization [facility] [place] [address] Care Team Providers Care Shipping & Receiving Lead Name Role Phone Salvatore Berman MD Primary Care Provider [phone] Reason for Visit * Reason Onset Date Comments Other 03/13/2012 Encounter Details Date Type Department Care Team (Late st Contact Info) Description 03/13/2012 [place] [id number] Julio Welsh MD [facility] [place] [address] Other Social History Tobacco Use Types Packs/Day [...] Telephone Encounter - Jeannie Tesfaye RN - 03/13/2012 10:22 AM EDT Pt ordered for proventil inhaler by Dr. Welsh Pt pharmacy called as ins co prefers xopenex over proventil and asks if this is OK Pharmacist informed that I would speak to pt to have this addressed by her PCP rather than her neurologist Call placed to pt above reviewed and pt was asked to call her PCP to see if xopenex is ok or if sheneeds proventil and to provide rx as appropriate. Pt understanding and will call her PCP for clarification and Rx need of the above. documented in this encounter Plan of Treatment Not on file documented as of this encounter Visit Diagnoses Not on filedocumented in this encounter Care Teams Shipping & Receiving Lead Relationship Specialty Start Date End Date Salvatore Berman MD PCP - General 04/28/10 08/10/15 documented as of this encounter
--- OUTSIDE RECORDS SUMMARY | 2023-12-27 01:06 | XMS_ITS | Encounter Summary ---
Author Organization [facility] [place] [address] Care Team Providers Care Safety Officer Name Role Phone Salvatore Berman MD Primary Care Provider [phone] Reason for Visit * Reason Comments Migraine Encounter Details Date Type Department Care Team (Late Contact Info) Description 12/24/2010 4:15 PM EDT [place] [id number] Julio Welsh MD [facility] [place] [address] Migraine (Primary Dx) Discharge Disposition: Home Social [...] Sign Reading Time Taken Comments Blood Pressure 93/57 12/24/2010 3:43 PM EDT Pulse 78 12/24/2010 3:43 PM EDT Temperature - - Respiratory Rate - - Oxygen Saturation - - Inhaled Oxygen Concentration - - Weight 83 kg (183 lb) 12/24/2010 3:43 PM EDT Height 162.6 cm (5' 4) 12/24/2010 3:43 PM EDT Body Mass Index 31.41 12/24/2010 3:43 PM EDT documented in this encounter Patient Instructions * Patient Instructions* Julio Welsh MD - 12/24/2010 5:21 PM EDT I think you are doing OK. Please stay on amitriptyline for headache prevention, one pill every night. You can take indomethacin and hydroxyzine, one capsule each twice a day as needed for headache or backache. I will see you back in a year. documented in this encounter Progress Notes * Julio Welsh MD - 12/24/2010 5:09 PM EDT Chief Complaint: Headaches, stroke, and hemiparesis. History: The patient is seen in followup today. She is doing quite well. She feels no worsening of her congenital weakness. Her headaches are doing quite well. She can use Indocin and Vistaril occasionally. 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 Ernandez. She complains of back pain and has had some problems with a left ankle injury. She is seeing Dr. Villa. Physical Exam: Head, eyes, ears, nose and throat were normal. There is no sign of infection in either eye. She has complete loss of vision on the left and external deviation of the left eye. In the right eye, vision is 20/25 using her glasses and 14-inch card. This is stable. Cranial nerves are otherwise unremarkable. She has more nystagmus in both eyes looking to the left. She has a mild left hemiparesis, it is unchanged. Tone is slightly increased on the left. Reflexes are brisk except for the left ankle reflex, which cannot be elicited. She walks with a mildly spastic and ataxic gait. She was not using her brace today. She has minor sensory deficits on the left side. Medications: In electronic record Impression: The patient is doing well. 1. As noted earlier, she had a stroke at the time of with no evidence of recurrence. Her MRI scan is stable. 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 2. She suffers from migraine. This is doing quite well on Elavil for prevention and indomethacin and Vistaril for symptomatic relief. 3. Her vision problems appear to have stabilized. 4. She has musculoskeletal back pain without radicular symptoms or signs and has injury to the leftankle. The heel cord ins very tight and I think she should stay on baclofen for the spasticity. Further management including heel cord lengthening must be in the hands of Dr. Villa. Thank you for this consultation. I will see her back in a year or sooner if necessary. cc: Glenn Castanon MD Jose G [address] [place] [address] Wyatt Ernandez MD [facility] [address] [place] [address] Jorge Villa MD documented in this encounter Plan of Treatment Not on file documented as of this encounter Visit Diagnoses Diagnosis Migraine- Primary Migraine, unspecified, without mention of intractable migraine without mention of status migrainosus documented in this encounter Care Teams Safety Officer Relationship Specialty Start Date End Date Salvatore Berman MD PCP - General 04/28/10 08/10/15 documented as of this encounter
--- OUTSIDE RECORDS SUMMARY | 2023-12-27 01:06 | XMS_ITS | Encounter Summary ---
Author Organization Formerly [facility] [place] [address] Care Team Providers Care Medical Records Clerk Name Role Phone Salvatore Berman MD Primary Care Provider [phone] Reason for Visit * Reason Onset Date Comments Medication Refill 12/28/2011 Encounter Details Date Type Department Care Team (Late Contact Info) Description 12/28/2011 [place] [address] Julio Welsh MD [facility] [place] [address] Social History Tobacco Use Types Packs/Day Years [...] filedocumented in this encounter Care Teams Medical Records Clerk Relationship Specialty Start Date End Date Salvatore Berman MD PCP - General 04/28/10 08/10/15 documented as of this encounter
--- OUTSIDE RECORDS SUMMARY | 2023-12-27 01:06 | XMS_ITS | Encounter Summary ---
Author Organization [facility] [place] [address] Care Team Providers Care Mechanical Maintenance Instructor Name Role Phone Salvatore Berman MD Primary Care Provider [phone] Encounter Details Date Type Department Care Team (Late st Contact Info) Description 07/10/2012 2:15 PM EST [place] [phone] Julio Welsh MD [facility] [place] [address] Migraine (Primary Dx) Discharge Disposition: Home Social [...] Sign Reading Time Taken Comments Blood Pressure 114/77 07/10/2012 1:50 PM EST Pulse 97 07/10/2012 1:50 PM EST Temperature - - Respiratory Rate - - Oxygen Saturation - - Inhaled Oxygen Concentration - - Weight 87 kg (191 lb 12.8 oz) 07/10/2012 1:50 PM EST Height 152.4 cm (5') 07/10/2012 1:50 PM EST Body Mass Index 37.46 07/10/2012 1:50 PM EST documented in this encounter Patient Instructions * Patient Instructions* Julio Welsh MD - 07/10/2012 2:50 PM EST It seems migraine headaches have taken a turn for the worse. I suggest the following to try and get them under control. Please do not take ibuprofen or the Excedrin Migraine. I think you need a break from those. For prevention of migraine continue with the amitriptyline 50 mg at night. In addition start takingTopamax 25 mg twice a day. I have sent in a prescription. For acute headaches try using naproxen one pill twice a day as needed, combined with hydroxyzine one pill twice a day as needed. Try not to use these more than every other day. The naproxen is mainly for the pain, the hydroxyzine should help with the nausea and vomiting. Please call me in 2 weeks. If you are not clearly better we will have to think about hospitalizing you as an inpatient. Julio Welsh MD [place] [address] Pager: [phone], #[phone] Email: [email or web address] documented in this encounter Progress Notes * Julio Welsh MD - 07/10/2012 11:26 AM EST Chief Complaint: Headaches, stroke, and [...] has had no additional visual disturbances. She is doing worse with her headaches. She needs symptomatic treatment with Excedrin Migraine or other kqux-gvo-xgyvyii analgesics about once every other day . The pain is severe posteriorly with some radiation to the vertex worse on the right. She is often nauseated. Past medical history: Patient Active Problem List Diagnoses Code ??? 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 CIS - migraine T999.0 ??? 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 Transient visual disturbance, right 368.9 ??? 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 Headache 784.0 Review of systems: She is eating poorly due to nausea. sSep is disturbed by migraines. Bowel and bladder function is stable. Physical Exam: BP 114/77 Pulse 97 Ht 152.4 cm (5') Wt 87 kg (191 lb 12.8 oz) BMI 37.46 kg/m2 Head, eyes, ears, nose and throat were normal. There was mild occipital tenderness on the right with some tenderness higher up on the right. Heart and lungs were normal. She is mentally at baseline. Speech is [...] Outpatient Prescriptions Medication Sig Dispense Refill ??? DISCONTD: IBUPROFEN (ADVIL ORAL) Take 1 tablet by mouth 2 times daily. ??? amitriptyline (ELAVIL) 50 mg tablet Take 1 tablet by mouth nightly. 90 tablet 1 ??? baclofen (LIORESAL) 10 mg tablet Take 1 tablet by mouth 3 times daily. 90 tablet 5 ??? albuterol (PROVENTIL HFA;VENTOLIN HFA) 90 mcg/actuation inhaler Inhale 2 puffs into the lungs daily as needed for Wheezing. Use with spacer 1 Inhaler 11 ??? DISCONTD: ghvosyj-jgkxdlunswcua-uzlrecfc (EXCEDRIN MIGRAINE) 250-250-65 mg per tablet Take 2 tablets by mouth 3 times daily as needed for Pain. 30 tablet 0 ??? CALCIUM CARBONATE (TUMS ORAL) Take 1 tablet by mouth daily. ??? aspirin 325 mg tablet Take 325 mg by mouth daily. ??? raloxifene (EVISTA) 60 mg tablet Take 60 mg by mouth daily. ??? valACYclovir (VALTREX) 500 mg tablet Take 500 mg by mouth daily. ??? topiramate (TOPAMAX) 25 mg tablet Take 1 tablet by mouth 2 times daily. 60 tablet 11 ??? naproxen sodium (ANAPROX) 550 mg tablet Take 1 tablet by mouth 2 times daily as needed. 60 tablet 12 ??? hydrOXYzine (VISTARIL) 50 mg capsule Take 1 capsule by mouth 2 times daily as needed. 60 capsule 0 Impression: The patient is neurologically stable, but doing worse with regard to migraine. 1. As noted earlier, she had a stroke at the time of with no evidence of recurrence. Her MRI scan is stable. 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 2. She suffers from migraine. She was doing quite well on Elavil for prevention but I believe now has worsening migraine and probably analgesic rebound headache from overuse of Excedrin Migraine. I have warned her of this danger in detail on several occasions. I recommended stopping Excedrin Migraine completely and also stopping ibuprofen at present. Instead am putting her naproxen 550 mg twice aday when necessary be combined with Vistaril 50 mg twice a day when necessary and instructions not to use it more than once every other day. The naproxen is mainly for pain, and hydroxyzine mainly for nausea. I am also adding Topamax 25 mg twice a day for migraine prophylaxis. 3. Her vision problems appear to have [...] done for Thank you for this consultation. If she does not improve in the next few weeks, we would need to hospitalize her for inpatient IV therapy. I've asked her to call me in 2 weeks. I will see her back in 2 months in any case. Julio Welsh MD [place] [address] Pager: [phone], #[phone] Email: [email or web address] cc: Dr. Berman documented in this encounter Plan of Treatment Not on file documented as of this encounter Visit Diagnoses Diagnosis Migraine- Primary Migraine, unspecified, without mention of intractable migraine without mention of status migrainosus documented in this encounter Care Teams Mechanical Maintenance Instructor Relationship Specialty Start Date End Date Salvatore Berman MD PCP - General 04/28/10 08/10/15 documented as of this encounter
--- NOTE | 2023-12-27 07:00 | DI.MRI_ITS ---
Exam(s) MR LOWER JOINT RT WO EXAM: MR LOWER JOINT RT WO CLINICAL HISTORY: R KNEE PAIN,INTERNAL DERANGEMENT,M23.91. TECHNIQUE: Multiplanar multisequence MRI was performed. COMPARISON: CR XR KNEE RT 3V AP,LAT,KAREN from 09/12/2023 FINDINGS: BONES: There is no fracture or contusion pattern. Mild nonspecific edema seen in the tibial spines. JOINTS: There is thinning of the articular cartilage overlying the medial femoral condyle. There is also mild hyperintense signal seen in the medial patellar facet suggesting chondromalacia. There is a small amount of fluid in the joint space. TENDONS: Extensor mechanism: Unremarkable. Medial retinaculum: Unremarkable. Lateral retinaculum: Unremarkable. Popliteus: Unremarkable. MUSCLES: Unremarkable. MENISCI: The medial meniscus is unremarkable. The lateral meniscus is unremarkable. SOFT TISSUES: Unremarkable. LIGAMENTS: Anterior Cruciate: Unremarkable. Posterior Cruciate: Unremarkable. Medial Collateral:Unremarkable. Lateral Collateral: Unremarkable. OTHER: IMPRESSION: 1. There is no evidence of a meniscal or ligament tear. 2. 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 DATA REPOSITORY:
== END ==
PROVIDERS: PCP Nurse Practitioner; Visit Provider Student in an Organized Health Care Education/Training Program
DX: M23.91 Unspecified internal derangement of right knee (principal); M94.261 Chondromalacia, right knee
CPT/HCPCS: 73721

== ENCOUNTER 2024-05-14 02:00 | Outpatient (RCR) | payer MEDICAID, SELFPAY ==
[2024-05-14] MEDS: ZOLEDRONIC ACID/MANNITOL/WATER 5 MG/100 ML BTL 300 MG IVPB (09:48)
[2024-05-14] MEDS: Normal Saline Flush 10 ML SYR IVP (09:57)
== END 2024-06-05 23:59 | disposition home or self-care (01) ==
LOC: INF 02:00
PROVIDERS: PCP Nurse Practitioner; Visit Provider Nurse Practitioner
DX: M81.0 Age-related osteoporosis without current pathological fracture (principal)
CPT/HCPCS: 96365; J3489

== ENCOUNTER 2024-05-28 01:32 | Outpatient (CLI) | payer MEDICAID, SELFPAY ==
--- NOTE | 2024-05-28 09:16 | DI.MAMMO_ITS ---
Exam(s) MAMMO SCREENING EXAM: MAMMO SCREENING CLINICAL HISTORY: screening,z12.39,family h/o breast ca TECHNIQUE: Mammograms were interpreted according to the usual protocol including computer analysis w [employer] CAD system, tomosynthesis and C-view imaging. COMPARISON: 2014 through 2022 FINDINGS: The breasts are composed of scattered fibroglandular densities, Breast Density category B. No suspicious masses or suspicious microcalcifications are seen. No skin thickening or abnormal axillary lymph nodes are seen. There has been no significant change from prior exams. IMPRESSION: BI-RADS Category 1, Negative mammogram Yearly screening mammography is recommended. Breast Density - Category B, scattered fibroglandular densities. A negative radiographic report should not delay biopsy if a dominant or clinically suspicious mass is present. Up to ten percent of cancers are not identified on mammography. A negative report may reinforce clinical impression. Adenosis and dense breasts may obscure an underlying neoplasm. False positive reports average 6 to 10%. Patient will receive a letter notifying them of these results.
== END 2024-05-28 01:52 ==
LOC: DI 01:32
PROVIDERS: PCP Nurse Practitioner; Visit Provider Nurse Practitioner
DX: Z12.31 Encounter for screening mammogram for malignant neoplasm of breast (principal); R92.323 Mammographic fibroglandular density, bilateral breasts
CPT/HCPCS: 77063; 77067

== ENCOUNTER 2024-05-28 02:36 | Outpatient (CLI) | payer MEDICAID, SELFPAY ==
[2024-05-28 10:26] LABS: ALT 26 U/L (14-59); AST 19 U/L (15-37); Albumin 3.8 g/dL (3.4-5.0); Alkaline Phosphatase 120 U/L (46-116); Anion Gap 6.5 mmol/L (3-11); BUN 13 mg/dL (7-18); Bilirubin, Total 0.42 mg/dL (0.2-1.0); CO2 30.5 mmol/L (21.0-32.0); CREATININE 0.9 mg/dL (0.55-1.02); Calcium 9.3 mg/dL (8.5-10.1); Calculated LDL 126 mg/dL (<100); Chloride 106 mmol/L (98-107); Cholesterol 225 mg/dL (<200); Estimated GFR 77.88 (mL/min/1.73m2); Glucose 95 mg/dL (74-106); HDL Cholesterol 66 mg/dL (40-60); Potassium 4.1 mmol/L (3.5-5.1); Sodium 143 mmol/L (136-145); Total Protein 7.5 g/dL (6.4-8.2); Triglyceride 166 mg/dL (<150); Vitamin D 25 Total 33.5 ng/mL (30-100)
== END 2024-05-28 02:37 | disposition home or self-care (01) ==
LOC: LBO 02:36
PROVIDERS: PCP Nurse Practitioner; Visit Provider Nurse Practitioner
DX: E78.00 Pure hypercholesterolemia, unspecified (principal); M81.0 Age-related osteoporosis without current pathological fracture; E55.9 Vitamin D deficiency, unspecified
CPT/HCPCS: 36415; 80053; 80061; 82306

== ENCOUNTER 2024-09-26 10:37 | Outpatient (CLI) | payer MEDICAID, SELFPAY ==
--- NOTE | 2024-09-26 10:30 | DI.RAD_ITS ---
Exam(s) XR ABDOMEN FLAT PLATE EXAM: 2D digital imaging was performed. CLINICAL HISTORY: right flank pain w/ hx of renal calculi Z87.442. COMPARISON: CR IVP ER NO TOMOS from 01/06/2009 CR XR PELVIS AP from 07/04/2019 CR XR CHEST 2V PA LATERAL from 07/04/2019 TECHNIQUE: Supine views of the abdomen performed. FINDINGS: BOWEL GAS PATTERN: Nondistended. CALCIFICATIONS: The right kidney is largely obscured by overlying bowel. No obvious stones are seen. OSSEOUS STRUCTURES: Normal for age. OTHER FINDINGS: Surgical clips are seen in the right upper quadrant of the abdomen. IMPRESSION: 1. Nonobstructive bowel gas pattern. 2. No radiopaque calculi. DATA REPOSITORY: RADIATION DOSE DELIVERED:
== END 2024-09-26 10:57 ==
LOC: DI 10:37
PROVIDERS: PCP Nurse Practitioner; Visit Provider Nurse Practitioner Gerontology
DX: Z87.442 Personal history of urinary calculi (principal); R10.11 Right upper quadrant pain
CPT/HCPCS: 74018